=== PATIENT | male | born 1950 | race Caucasian/White ===

== ENCOUNTER 2019-05-14 17:08 | Outpatient (CLI) | payer MEDICARE, SELFPAY ==
--- NOTE | ~2019-05-14 | XR_ITS ---
[XR ribs RT 2V w CXR 2V INDICATION: Right rib pain after fall TECHNIQUE: Frontal projection of the upper right ribs, frontal projection of the lower right ribs, ob lique projection of all the right ribs, frontal inspiratory chest x-ray for interpretation. FINDINGS: There are no displaced rib fractures identified. There are no soft tissue abnormality see n. The lungs are clear. There is diffuse idiopathic skeletal hyperostosis (DISH) of the thoracic spi ne. There is moderate osteoarthritis of the right glenohumeral joint. IMPRESSION: 1:No displaced rib fractures. Reviewed, dictated and finalized at location A. 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
== END 2019-05-14 17:09 | disposition home or self-care (01) ==
PROVIDERS: PCP Internal Medicine; Visit Provider Internal Medicine
DX: S29.9XXA Unspecified injury of thorax, initial encounter (principal); R07.9 Chest pain, unspecified
CPT/HCPCS: 71045; 71101

== ENCOUNTER 2019-06-01 11:59 | Outpatient (CLI) | payer MEDICARE, SELFPAY ==
[2019-06-01] MEDS: MALTOSE IVPB (13:23)
[2019-06-01] MEDS: SODIUM CHLORIDE 0.9% IVPB (13:23)
[2019-06-01] MEDS: ABATACEPT IVPB (13:23)
== END 2019-06-01 12:00 | disposition home or self-care (01) ==
PROVIDERS: PCP Internal Medicine
DX: M05.9 Rheumatoid arthritis with rheumatoid factor, unspecified (principal)
CPT/HCPCS: 96365; 96366; J0129

== ENCOUNTER 2019-06-29 12:05 | Outpatient (CLI) | payer MEDICARE, SELFPAY ==
[2019-06-29] MEDS: SODIUM CHLORIDE 0.9% IVPB (12:45)
[2019-06-29] MEDS: ABATACEPT IVPB (12:45)
[2019-06-29] MEDS: MALTOSE IVPB (12:45)
[2019-06-29 12:49] VITALS: BP 129/80; PULSE 78; RESP 16; TEMP 36.6; O2SAT 97
--- NOTE | 2019-06-29 13:22 | PC.NURSE ---
Patient here for monthly Orencia infusion. No concerns voiced. Orencia infusion administered. Tolerated it well. Safe exit of hospital.
== END 2019-06-29 12:06 | disposition home or self-care (01) ==
PROVIDERS: PCP Internal Medicine
DX: M05.9 Rheumatoid arthritis with rheumatoid factor, unspecified (principal)
CPT/HCPCS: 96365; J0129

== ENCOUNTER 2019-07-27 11:47 | Outpatient (CLI) | payer MEDICARE, SELFPAY ==
[2019-07-27 12:10] VITALS: BP 128/79; PULSE 72; RESP 16; TEMP 36.6; O2SAT 98
[2019-07-27] MEDS: MALTOSE IVPB (12:40)
[2019-07-27] MEDS: ABATACEPT IVPB (12:40)
[2019-07-27] MEDS: SODIUM CHLORIDE 0.9% IVPB (12:40)
--- NOTE | 2019-07-27 13:21 | PC.NURSE ---
PATIENT TOLERATED MONTHLY ORENCIA IV INFUSION WELL. NO CONCERNS VOICED. SAFE EXIT OF HOSPITAL.
== END 2019-07-27 11:48 | disposition home or self-care (01) ==
LOC: CHSTREATRM 11:54
PROVIDERS: PCP Internal Medicine
DX: M05.9 Rheumatoid arthritis with rheumatoid factor, unspecified (principal)
CPT/HCPCS: 96365; J0129

== ENCOUNTER 2019-08-17 09:18 | Outpatient (CLI) | payer MEDICARE, SELFPAY ==
--- NOTE | ~2019-08-17 | XR_ITS ---
EXAMINATION: XR knee RT min 4V DATE: 08/17/2019 10:22 INDICATION: Right knee pain. TECHNIQUE: 4 views of right knee were obtained. COMPARISON: None. FINDINGS: There is varus angulation at the knee. There is lateral subluxation of patella. No fracture . There is severe osteoarthritis of medial compartment, moderate osteoarthritis of patellofemoral com partment, and mild osteoarthritis of lateral compartment. There is a small knee joint effusion. IMPRESSION: 1. Severe right knee osteoarthritis. 2. Small right knee joint effusion. Reviewed, dictated and finalized at location E.
--- NOTE | ~2019-08-17 | US_ITS ---
EXAMINATION: US right upper quadrant DATE: 08/17/2019 10:14 INDICATION: Right upper quadrant abdominal pain. TECHNIQUE: Multiple grayscale and Doppler ultrasound images of the abdomen were obtained. COMPARISON: None FINDINGS: The visualized portions of the head, body, and tail of the pancreas are normal. The liver i s normal without focal lesion. There is normal flow in main portal vein. The gallbladder is normal in size. No gallstones or gallbladder wall thickening. There was a positive sonographic Fisher sign. Th e common duct is normal and measures 5 mm. IMPRESSION: 1. Normal right upper quadrant ultrasound. No etiology for the positive sonographic Fisher sign. Reviewed, dictated and finalized at location E. IMPRESSION: 1. Normal right upper quadrant ultrasound. No etiology for the positive sonogra phic Fisher sign.
--- NOTE | ~2019-08-17 | XR_ITS ---
EXAMINATION: XR knee LT min 4V DATE: 08/17/2019 10:22 INDICATION: Left knee pain. TECHNIQUE: 4 views of left knee were obtained. COMPARISON: None. FINDINGS: There is lateral subluxation of patella. No fracture. There is severe osteoarthritis of med ial compartment, moderate osteoarthritis of patellofemoral compartment, and mild osteoarthritis of la teral compartment. No knee joint effusion. IMPRESSION: 1. Severe left knee osteoarthritis. Reviewed, dictated and finalized at location E.
== END 2019-08-17 09:19 | disposition home or self-care (01) ==
PROVIDERS: PCP Internal Medicine; Visit Provider Internal Medicine
DX: R10.11 Right upper quadrant pain (principal); M25.562 Pain in left knee; M25.561 Pain in right knee
CPT/HCPCS: 73564; 76705

== ENCOUNTER 2019-08-24 11:43 | Outpatient (CLI) | payer MEDICARE, SELFPAY ==
[2019-08-24] MEDS: SODIUM CHLORIDE 0.9% IVPB (12:29)
[2019-08-24] MEDS: MALTOSE IVPB (12:29)
[2019-08-24] MEDS: ABATACEPT IVPB (12:29)
--- NOTE | 2019-08-24 13:05 | PC.NURSE ---
Pt discharged ot home amb per self.
== END 2019-08-24 11:44 | disposition home or self-care (01) ==
PROVIDERS: PCP Internal Medicine
DX: M05.9 Rheumatoid arthritis with rheumatoid factor, unspecified (principal)
CPT/HCPCS: 96365; J0129

== ENCOUNTER 2019-10-05 12:45 | Outpatient (CLI) | payer MEDICARE, SELFPAY ==
[2019-10-05 13:00] VITALS: BP 136/79; PULSE 68; RESP 18; TEMP 37; O2SAT 97
[2019-10-05] MEDS: SODIUM CHLORIDE 0.9% IVPB (13:35)
[2019-10-05] MEDS: ABATACEPT IVPB (13:35)
[2019-10-05] MEDS: MALTOSE IVPB (13:35)
--- NOTE | 2019-10-05 14:14 | PC.NURSE ---
1300 PATIENT HERE FOR MONTHLY ORENICA IV INFUSION. NO CONCERNS VOICED. HAD TOTAL KNEE REPLACEMENT 2 WEEKS AGO AND REPORTS REHABING WITH IT. ORENCIA INFUSION ADMINISTERED. TOLERATED IT WELL. SAFE EXIT OF HOSPITAL.
== END 2019-10-05 12:46 | disposition home or self-care (01) ==
LOC: CHSTREATRM 12:47
PROVIDERS: PCP Internal Medicine; Visit Provider Internal Medicine
DX: M05.9 Rheumatoid arthritis with rheumatoid factor, unspecified (principal)
CPT/HCPCS: 96365; J0129

== ENCOUNTER 2019-10-08 16:53 | Outpatient (RCR) | payer MEDICARE, SELFPAY ==
--- NOTE | 2019-10-11 17:46 | PTOPEVAL ---
Thank you for referring Brian Cano to [facility]. Please review, sign, date and return this plan of care [facility]. I agree with and certify that the following plan of care is medically necessary. Referring Physician Date Admitting Provider: Attending Provider: PHYSICIAN NOT ON STAFF Referring Provider: *PT Outpatient Evaluation Start: 10/08/19 17:00 Freq: Status: Active Protocol: Document 10/08/19 17:00 TANVIR (Rec: 10/08/19 17:54 TANVIR [id number]) Therapy Assessment Status Assessment Status Assessment Status Evaluation Evaluation Information Problem Diagnosis post op right TKR Onset 09/20/19 Additional Evaluation Detail LEFS=15 Subjective Information Pt. reports that he underwent Query Text:As Reported By Patient/ right knee replacement 09/20/19 Family . He states that he has not been participating in any formal therapy since undergoing surgery. He describes a short list of exercise that he has attempted to perform. He states that he has complications with both pain and stiffness in the right knee. He is using a quad cane currently. He is not currently driving. He has extensive hx of RA and recent episode of food poisoning. He states that his goal is to improve his knee mobility and strength. Prior Level of Function Activity Level (Last 3 Months) Occupation retired Hand Dominance Right Activity of Daily Living Ability Independent Indoor/Home Mobility Independent Community Mobility Needs Some Help Stairs Ability Needs Some Help Functional Cognition (Planning, Shopping Needs Some Help , Taking Medications) Cooking No Cleaning No Laundry No Shopping No Driving No Pain Assessment Pain Scale Pain Scale Used Numeric (1 - 10) Self Report Pain Assessment Right Knee(s) Reported Pain Level 7 Pain Description Aching Pain Frequency Chronic,Continuous Lowest Pain Intensity 7 Greatest Pain Intensity 10 Pain Score Pain Score 7: Self Report Lower Extremity Range o
== END 2019-11-02 10:29 | disposition home or self-care (01) ==
LOC: CHSPT 16:53
PROVIDERS: PCP Internal Medicine
DX: Z96.651 Presence of right artificial knee joint (principal)
CPT/HCPCS: 97110; 97116; 97161; 97530

== ENCOUNTER 2019-11-02 09:22 | Outpatient (CLI) | payer MEDICARE, SELFPAY ==
[2019-11-02 09:44] VITALS: BP 121/80; PULSE 68; RESP 14; TEMP 36.4; O2SAT 97
[2019-11-02] MEDS: SODIUM CHLORIDE 0.9% IVPB (10:05)
[2019-11-02] MEDS: MALTOSE IVPB (10:05)
[2019-11-02] MEDS: ABATACEPT IVPB (10:05)
--- NOTE | 2019-11-02 10:42 | PC.NURSE ---
1040 Patient tolerated Monthly Orencia IV infusion well. No concerns voiced. Safe exit of hospital.
== END 2019-11-02 09:23 | disposition home or self-care (01) ==
PROVIDERS: PCP Internal Medicine; Visit Provider Internal Medicine
DX: M05.9 Rheumatoid arthritis with rheumatoid factor, unspecified (principal)
CPT/HCPCS: 96365; 97110; J0129

== ENCOUNTER 2019-11-12 07:56 | Outpatient (CLI) | payer MEDICARE, SELFPAY ==
--- NOTE | ~2019-11-12 | NM_ITS ---
EXAMINATION: NM hepatobiliary w pharm DATE: 11/12/2019 10:06 INDICATION: Right upper quadrant abdominal pain. COMPARISON: Ultrasound 08/17/2019 TECHNIQUE: 5 mCi Tc-99m mebrofenin (Choletec) was administered intravenously. Scintigraphic images o f the abdomen were obtained for one hour. Then, 2.16 mcg sincalide (Kinevac) IV was administered, and imaging was continued for 30 minutes. FINDINGS: There is normal clearance of radiotracer from the blood pool. There is homogeneous tracer u ptake by the liver. Activity progresses to the bowel and gallbladder. Gallbladder ejection fraction (GBEF) was 40%. Note that most patients with gallbladder dysfunction have GBEF < 35%, which overlaps with the broad normal range of 10-90%. IMPRESSION: 1. Normal hepatobiliary scintigraphy. Reviewed, dictated and finalized at location A.
--- NOTE | ~2019-11-12 | US_ITS ---
EXAMINATION: US right upper quadrant EXAM DATE: 11/12/2019 10:58 INDICATION: Right upper quadrant pain. TECHNIQUE: Multiple grayscale and Doppler images of the abdomen right upper quadrant were obtained (vidal y a technologist who performed the scan) and subsequently reviewed. There is no prior study for noel kent. FINDINGS: The pancreatic head and body are normal in appearance. The pancreatic tail is not visualized. The l iver has normal echogenicity and contour. There are no focal liver lesions identified. There is no evidence of intrahepatic biliary duct dilation. Portal venous flow was seen in the hepatopedal, nor mal direction and has normal Doppler waveform. No right-sided hydronephrosis. Common bile duct measures 3 mm, which is normal. The gallbladder wall is normal in thickness, with co ntracted state. No sonographic evidence of pericholecystic fluid. There is no cholelithiases. Techn ologist performing exam reports patient did not demonstrate sonographic Fisher's sign. Please note t hat this sign is less reliable in patients who have received pain medication. IMPRESSION: 1. Unremarkable abdominal ultrasound exam. Reviewed, dictated and finalized at location B.
== END 2019-11-12 07:57 | disposition home or self-care (01) ==
PROVIDERS: PCP Internal Medicine; Visit Provider Internal Medicine
DX: R10.11 Right upper quadrant pain (principal)
CPT/HCPCS: 76705; 78227; A9537; J2805

== ENCOUNTER 2019-11-30 12:31 | Outpatient (CLI) | payer MEDICARE, SELFPAY ==
[2019-11-30 12:44] VITALS: BP 128/77; PULSE 68; RESP 14; TEMP 36.3; O2SAT 98
[2019-11-30] MEDS: ABATACEPT IVPB (13:13)
[2019-11-30] MEDS: SODIUM CHLORIDE 0.9% IVPB (13:13)
[2019-11-30] MEDS: MALTOSE IVPB (13:13)
--- NOTE | 2019-11-30 13:56 | PC.NURSE ---
1230 Patient here for monthly Orencia IV infusion. No concerns voiced. Orencia Infusion administered. SEE MAR. Tolerated well. Safe exit of hospital. Scheduled next month 1230
== END 2019-11-30 12:32 | disposition home or self-care (01) ==
PROVIDERS: PCP Internal Medicine; Visit Provider Internal Medicine
DX: M05.9 Rheumatoid arthritis with rheumatoid factor, unspecified (principal)
CPT/HCPCS: 96365; J0129

== ENCOUNTER 2019-12-03 01:09 | Outpatient (CLI) | payer MEDICARE, SELFPAY ==
[2019-12-03 16:32] LABS: SARS-CoV-2 RNA PCR Negative
== END 2019-12-03 01:10 | disposition home or self-care (01) ==
LOC: ANHCOVIDDT 01:09
PROVIDERS: PCP Internal Medicine; Visit Provider Internal Medicine Gastroenterology
DX: Z01.812 Encounter for preprocedural laboratory examination (principal); Z20.828 Contact with and (suspected) exposure to other viral communicable diseases
CPT/HCPCS: 87635; C9803; U0003

== ENCOUNTER 2019-12-05 00:46 | Day surgery (SDC) | payer MEDICARE, SELFPAY ==
[2019-11-26 13:24] VITALS: BMI 33.2
--- NOTE | 2019-12-05 12:23 | WPDANESEPPF ---
Anes - Initial Pre Proc Eval Procedure: Operation Date: 12/05/19 13:30 Proposed Procedures p Esophagogastroduodenoscopy & Screening Colonoscopy - Kj Canales MD Date/Time: 12/05/19 12:23 Surgeon: Kj Canales MD Pre Op Diagnosis: Abdominal Pain/ Neoplasm Screening Patient Data Age: 69 Gender: M Height: 5 ft 10 in Weight: 105 kg Allergies Allergy/AdvReac Type Severity Reaction Status Date / Time Penicillins Allergy Intermediate Unknown Verified 12/05/19 12:20 hydrocodone Allergy Unknown Verified 12/05/19 12:20 methotrexate Allergy Unknown Verified 12/05/19 12:20 niacin Allergy Unknown Verified 12/05/19 12:20 zinc Allergy Unknown Verified 12/05/19 12:20 Home Medications Medication Instructions Recorded Confirmed Type alprazolam 2 mg tablet 2 mg PO DAILY 11/22/19 11/26/19 History atorvastatin 10 mg tablet 10 mg PO DAILY 11/22/19 11/26/19 History cyanocobalamin (vitamin B-12) 1,000 mcg PO DAILY 11/22/19 11/26/19 History 1,000 mcg capsule diclofenac sodium 1.5 % topical pkg TOPICAL 11/22/19 History drops-menthol 10 % roll-on combo pack fluticasone propionate 55 1 inhalation INHALATION Q12H 11/22/19 11/26/19 History mcg/actuation breath activated powder inhalr hyoscyamine sulfate 0.125 mg tablet 0.125 mg PO QID 11/22/19 11/26/19 History losartan 50 mg tablet 50 mg PO DAILY 11/22/19 11/26/19 History dqkplghz-fshatczszg-ybtirhqc 3.5 1 applic EACH EYE TID #3.5 gm 11/22/19 11/26/19 Rx mg-400 unit-10,000 unit/gram eye oint pantoprazole 40 mg tablet,delayed 40 mg PO QAM 11/22/19 11/26/19 History release sertraline 100 mg tablet 100 mg PO DAILY 11/22/19 11/26/19 History tizanidine 4 mg capsule 4 mg PO TID PRN 11/22/19 11/26/19 History triamcinolone acetonide 0.1 % 1 applic TOPICAL BID 11/22/19 11/26/19 History topical cream peg 3350-electrolytes 236 240 ml PO Q10M #4000 ml 11/23/19 11/26/19 Rx gram-22.74 gram-6.74 gram-5.86 gram solution Patient hx anesthesia problems: none Family hx anesthesia problems: none PMFSH Past Medical History Medical History Anxiety Colon cancer screening Depression Hyperlipidemia Hypertension Nausea & vomiting Neuropathy Rheumatoid arthritis RUQ pain Social History Social History Alcohol intake: former Substance use type: does not use Living arrangements: with family Anes - Eval Final PreProcedure Day of Procedure 12/05/19 12:23 Patient weight: obese Heart: regular rate and rhythm Lungs: clear to auscultation Airway: Mallampati scale class II Neurological: alert and oriented Last oral intake: >/= 8 hours ASA classification: III Emergent: no Anesthetic plan: proceed Anesthesia type and monitoring: general GIVS and standard monitoring Informed Consent: The patient's anesthetic plan and its attendant risks and benefits were discussed with the patient/family/POA. Questions were solicited and answers provided to the satisfaction of the patient/family/POA.
[2019-12-05 12:25] VITALS: BP 159/83; PULSE 83; RESP 20; TEMP 36.4; O2SAT 98; BMI 32.3
[2019-12-05] MEDS: LACTATED RINGERS 1,000 ML 150 ML IV CONT (12:45)
--- NOTE | 2019-12-05 13:35 | WPDHPUPDATE1 ---
History and Physical Update Update Date/Time: 12/05/19 13:35 History and Physical has been reviewed, including an updated exam of the patient. There are NO changes in the patient's condition. Risks, benefits, and alternatives have been discussed and questions answered. Patient agrees to proceed with procedure.
[2019-12-05 14:17] VITALS: BP 89/60; PULSE 63; RESP 12; O2SAT 96
[2019-12-05 14:27] VITALS: BP 89/55; PULSE 63; RESP 12; O2SAT 94
[2019-12-05 14:37] VITALS: BP 97/67; PULSE 69; RESP 20; O2SAT 99
[2019-12-05 14:47] VITALS: BP 111/69; PULSE 62; RESP 23; O2SAT 98
== END 2019-12-05 15:02 | disposition home or self-care (01) ==
PROVIDERS: PCP Internal Medicine; Visit Provider Internal Medicine Gastroenterology
PROC: 0DJ08ZZ Inspection of Upper Intestinal Tract, Via Natural or Artificial Opening Endoscopic (ICD-10-PCS; CPT 43235; principal; 2019-12-05 13:30)
DX: Z12.11 Encounter for screening for malignant neoplasm of colon (principal); K57.30 Diverticulosis of large intestine without perforation or abscess without bleeding; K64.8 Other hemorrhoids; R10.11 Right upper quadrant pain; F41.8 Other specified anxiety disorders; I10 Essential (primary) hypertension; E78.5 Hyperlipidemia, unspecified; M06.9 Rheumatoid arthritis, unspecified; G62.9 Polyneuropathy, unspecified; E66.9 Obesity, unspecified; Z68.32 Body mass index [BMI] 32.0-32.9, adult
CPT/HCPCS: 43239; G0121; 88305; J2704; J7120

== ENCOUNTER 2019-12-17 02:34 | Outpatient (CLI) | payer MEDICARE, SELFPAY ==
[2019-12-17 16:34] LABS: SARS-CoV-2 RNA PCR Negative
== END 2019-12-17 02:35 | disposition home or self-care (01) ==
LOC: ANHCOVIDDT 02:34
PROVIDERS: PCP Internal Medicine; Visit Provider Surgery
DX: Z01.818 Encounter for other preprocedural examination (principal); Z11.59 Encounter for screening for other viral diseases
CPT/HCPCS: 87635; C9803; U0003

== ENCOUNTER 2019-12-17 10:45 | Outpatient (CLI) | payer MEDICARE, SELFPAY ==
--- NOTE | 2019-12-17 10:50 | ECG_ITS ---
Measurements Intervals [place] Rate: 54 P: 34 WI: 189 QRS: -28 QRSD: 105 T: 23 QT: 394 QTc: 377 Interpretive Statements SINUS BRADYCARDIA LOW QRS VOLTAGE IN PRECORDIAL LEADS INCOMPLETE RIGHT BUNDLE BRANCH BLOCK DELAYED PRECORDIAL R/S TRANSITION BORDERLINE ECG Electronically Signed On 12-17-2019 11:34:21 CDT by Wenceslao Garcia D.O.
[2019-12-17 11:42] LABS: Alanine Aminotransferase 14 U/L (4-50); Albumin Level 4.3 g/dL (3.5-5.1); Alkaline Phosphatase 99 U/L (38-126); Amylase 65 U/L (30-110); Aspartate Amino Transferase 17 U/L (17-59); Bilirubin,Total 0.5 mg/dL (0.2-1.3); Lipase 41 U/L (23-300)
== END 2019-12-17 10:46 | disposition home or self-care (01) ==
PROVIDERS: PCP Internal Medicine; Visit Provider Surgery
DX: K81.1 Chronic cholecystitis (principal); I10 Essential (primary) hypertension
CPT/HCPCS: 36415; 80076; 82150; 83690; 86850; 86900; 86901; 87635; 93005; C9803; U0003

== ENCOUNTER 2019-12-19 01:31 | Day surgery (SDC) | payer MEDICARE, SELFPAY ==
[2019-12-12 13:31] VITALS: BMI 32.3
[2019-12-19] VITALS (8 sets, daily range): BP systolic 94–140; BP diastolic 55–71; PULSE 56–70; RESP 14–18; TEMP 35.8–36.6; O2SAT 93–100
[2019-12-19] MEDS: KETOROLAC 15 MG/ML VIAL (*BKC) IV PUSH (10:22)
[2019-12-19] MEDS: ACETAMINOPHEN 500 MG TABLET 1000 MG PO (10:22)
[2019-12-19] MEDS: LACTATED RINGERS 1,000 ML 30 ML IV CONT ×2 (10:22→12:51)
--- NOTE | 2019-12-19 11:37 | WPDANESEPPF ---
Anes - Initial Pre Proc Eval Procedure: Operation Date: 12/19/19 12:00 Proposed Procedures p Laparoscopic Cholecystectomy - Cari Medrano MD Date/Time: 12/19/19 11:37 Surgeon: Cari Medrano MD Pre Op Diagnosis: cholecystitis Patient Data Age: 69 Gender: M Height: 5 ft 10 in Weight: 104.2 kg Last Vital Signs Temp 96.4 F L 12/19/19 11:28 Pulse 56 L 12/19/19 11:28 Resp 18 12/19/19 11:28 BP 102/55 L 12/19/19 11:28 Pulse Ox 100 12/19/19 11:28 Allergies Allergy/AdvReac Type Severity Reaction Status Date / Time clindamycin Allergy Gastrointestinal Verified 12/19/19 11:18 Upset hydrocodone Allergy Confusion Verified 12/19/19 11:18 methotrexate Allergy Other Verified 12/19/19 11:18 niacin Allergy Fatigued Verified 12/19/19 11:18 zinc Allergy Fatigued Verified 12/19/19 11:18 Home Medications Medication Instructions Recorded Confirmed Type alprazolam 2 mg tablet 2 mg PO DAILY 11/22/19 12/14/19 History atorvastatin 10 mg tablet 10 mg PO DAILY 11/22/19 12/14/19 History cyanocobalamin (vitamin B-12) 1,000 mcg PO DAILY 11/22/19 12/14/19 History 1,000 mcg capsule diclofenac sodium 1.5 % topical 1 pkg TOPICAL DAILY 11/22/19 12/14/19 History drops-menthol 10 % roll-on combo pack fluticasone propionate 55 1 inhalation INHALATION Q12H 11/22/19 12/14/19 History mcg/actuation breath activated powder inhalr hyoscyamine sulfate 0.125 mg tablet 0.125 mg PO QID 11/22/19 12/14/19 History losartan 50 mg tablet 50 mg PO DAILY 11/22/19 12/14/19 History axrdgbut-biaqwcfcyb-zhtmtrsf 3.5 1 applic EACH EYE TID #3.5 gm 11/22/19 12/14/19 Rx mg-400 unit-10,000 unit/gram eye oint pantoprazole 40 mg tablet,delayed 40 mg PO QAM 11/22/19 12/14/19 History release sertraline 100 mg tablet 100 mg PO DAILY 11/22/19 12/14/19 History tizanidine 4 mg capsule 4 mg PO TID PRN 11/22/19 12/14/19 History triamcinolone acetonide 0.1 % 1 applic TOPICAL BID 11/22/19 12/14/19 History topical cream peg 3350-electrolytes 236 240 ml PO Q10M #4000 ml 11/23/19 12/14/19 Rx gram-22.74 gram-6.74 gram-5.86 gram solution Patient hx anesthesia problems: none Family hx anesthesia problems: none [facility] Social History Social History Smoking status: Never smoker Alcohol intake: former Substance use: never Substance use type: does not use Living arrangements: with family Spiritual care concerns: No Anes - Eval Final PreProcedure Day of Procedure 12/19/19 11:37 Patient weight: normal Heart: regular rate and rhythm Lungs: clear to auscultation Airway: Mallampati scale class II Neurological: alert and oriented Last oral intake: >/= 8 hours ASA classification: III Emergent: no Anesthetic plan: proceed Anesthesia type and monitoring: general ETT and standard monitoring Informed Consent: The patient's anesthetic plan and its attendant risks and benefits were discussed with the patient/family/POA. Questions were solicited and answers provided to the satisfaction of the patient/family/POA.
--- NOTE | 2019-12-19 11:43 | WPDHPUPDATE1 ---
History and Physical Update Update Date/Time: 12/19/19 11:43 History and Physical has been reviewed, including an updated exam of the patient. There are NO changes in the patient's condition. Risks, benefits, and alternatives have been discussed and questions answered. Patient agrees to proceed with procedure.
[2019-12-19] MEDS: ceFAZolin 2 GM/D5W 50 ML 2 GM/50 ML BAG IVPB (11:57)
[2019-12-19] MEDS: BUPIVACAINE/EPINEPHRINE 0.5% 10 ML VIAL 30 ML INFILTRATE (12:28)
--- NOTE | 2019-12-19 12:53 | P.OP_ITS ---
Procedure Note - Detailed Date of procedure: 12/19/19 Pre-op diagnosis: cholecystitis Post-op diagnosis: same Procedure performed: laparoscopic cholecystectomy Description of procedure: The patient was taken to the operating room placed in the supine position. After adequate induction of general anesthesia, the patient was prepped and draped in normal sterile fashion. A time-out was then performed to verify the patient's identity as well as the procedure being performed. I then made a 5 mm incision in the infraumbilical region. Through this, a Veress needle was placed into the peritoneal cavity and CO2 gas was then insufflated. After adequate pneumoperitoneum was achieved, the Veress needle was removed and a 5 mm trocar was placed through this incision. I then placed the laparoscope through this trocar site and under direct visualization placed a further 12 mm subxiphoid port as well as 2 additional 5 mm ports in the right upper abdomen. The gallbladder was then identified and was noted to be inflamed with omental adhesions. These adhesions were taken down with the bovie cautery. Once taken down, I was able to place a grasper at the dome of the gallbladder and this was retracted anterior and cephalad up over the liver. A 2nd retractor was then placed at the infundibulum and retracted laterally, this allowed visualization of the triangle of Calot. I then was able to visualize the cystic duct in its entirety from its proximal insertion into the gallbladder, to its distal junction with the common hepatic/common bile duct junction. At this point, I carefully skeletonized the proximal cystic duct with the [place] dissector. I then clipped and transected the proximal cystic duct. Next I visualized the cystic artery. Again the artery was skeletonized, clipped, and transected. I then used the Bovie cautery to take down the peritoneal attachments of the gallbladder off the liver bed. Once the gallbladder specimen was completely detached, an endo-pouch was placed through the 12 mm port site. I then placed the gallbladder specimen into the Endo pouch and removed the endo- pouch from the 12 mm port site. The specimen will now be sent to pathology for further review. I then copiously irrigated the right upper quadrant. Hemostasis was noted in the liver bed, the clips were noted to be in good position on both the cystic duct stump and the cystic artery stump. No other pathology was noted in the right upper quadrant. I then moved the laparoscope to the subxiphoid port. No iatrogenic injury or other pathology was noted in the lower abdomen. At this point, the abdomen was desufflated and all ports removed. The fascia of the 12 mm subxiphoid port was closed with a 0 Vicryl figure of 8 suture. All port sites were then closed with 4.O Monocryl subcuticular sutures. Dermabond was placed on each incision. The patient tolerated the procedure well, was extubated in the operating room postoperative and will be transferred to the recovery room in stable condition. Implants: none Anesthesia: GETA Surgeon: Cari Medrano MD Estimated blood loss (mL): 5 Drains: No Packing: No Pathology: yes Complications: No immediate complications Condition: stable Disposition: PACU Findings: cholecystitis c omental adhesions
[2019-12-19] MEDS: fentaNYL CITRATE INJ (*CRX) 100 MCG/2 ML VIAL 25 MCG IV PUSH ×4 (13:06→13:31)
--- NOTE | 2019-12-19 13:31 | SUR.PHASEI ---
PT AWAKE AND ALERT. TALKATIVE, RELAXED. STATES PAIN 6-7/10 WHEN ASKED.
--- NOTE | 2019-12-19 13:39 | SUR.PHASEI ---
PT STATES HE IS READY TO SIT IN RECLINER AND HAVE PO FLUIDS.
[2019-12-19] MEDS: oxyCODONE HCL (*CRX) 5 MG TAB IR PO (14:19)
== END 2019-12-19 14:47 | disposition home or self-care (01) ==
PROVIDERS: PCP Internal Medicine; Visit Provider Surgery
PROC: 0FT44ZZ Resection of Gallbladder, Percutaneous Endoscopic Approach (ICD-10-PCS; CPT 47562; principal; 2019-12-19 12:00)
DX: K80.10 Calculus of gallbladder with chronic cholecystitis without obstruction (principal); I10 Essential (primary) hypertension; E78.5 Hyperlipidemia, unspecified; M06.9 Rheumatoid arthritis, unspecified; G62.9 Polyneuropathy, unspecified; F32.9 Major depressive disorder, single episode, unspecified
CPT/HCPCS: 47562; 88304; A9270; J0690; J1100; J1170; J1885; J2250; J2370; J2405; J2704; J2710; J3010; J7120

== ENCOUNTER 2020-01-04 12:43 | Outpatient (CLI) | payer MEDICARE, SELFPAY ==
[2020-01-04] MEDS: ABATACEPT IVPB (13:39)
[2020-01-04] MEDS: SODIUM CHLORIDE 0.9% IVPB (13:39)
[2020-01-04] MEDS: MALTOSE IVPB (13:39)
--- NOTE | 2020-01-04 14:15 | PC.NURSE ---
Patient tolerated infusion well. IV site removed,tip intact. Dressing applied to site. Next appointment made for 02-01-20 at 1230. Patient denies any questions or concerns. Pt. left ambulatory.
== END 2020-01-04 12:44 | disposition home or self-care (01) ==
LOC: CHSTREATRM 12:45
PROVIDERS: PCP Internal Medicine; Visit Provider Internal Medicine
DX: M05.9 Rheumatoid arthritis with rheumatoid factor, unspecified (principal)
CPT/HCPCS: 96365; J0129

== ENCOUNTER 2020-02-01 09:04 | Outpatient (CLI) | payer MEDICARE, SELFPAY ==
[2020-02-01] MEDS: SODIUM CHLORIDE 0.9% IVPB (10:03)
[2020-02-01] MEDS: ABATACEPT IVPB (10:03)
[2020-02-01] MEDS: MALTOSE IVPB (10:03)
--- NOTE | 2020-02-01 10:40 | PC.NURSE ---
infused, discontinued access and discharge to home, aware of what to watch for with removal of saline lock, signs of infection
== END 2020-02-01 09:05 | disposition home or self-care (01) ==
PROVIDERS: PCP Internal Medicine; Visit Provider Internal Medicine
DX: M05.9 Rheumatoid arthritis with rheumatoid factor, unspecified (principal)
CPT/HCPCS: 96365; J0129

== ENCOUNTER 2020-02-29 12:28 | Outpatient (CLI) | payer MEDICARE, SELFPAY ==
--- NOTE | 2020-02-29 12:40 | PC.NURSE ---
Pt to room 202 amb per self. A&Ox3. Has no questions or complaints. Oriented to room, call garcia in reach. Reminded to call with needs.
[2020-02-29] MEDS: ABATACEPT IVPB (13:20)
[2020-02-29] MEDS: MALTOSE IVPB (13:20)
[2020-02-29] MEDS: SODIUM CHLORIDE 0.9% IVPB (13:20)
--- NOTE | 2020-02-29 13:55 | PC.NURSE ---
Medication infused as ordered. Pt tolerated well. Has no complaints. Discharged to home amb per self.
== END 2020-02-29 12:29 | disposition home or self-care (01) ==
LOC: CHSTREATRM 12:31
PROVIDERS: PCP Internal Medicine; Visit Provider Internal Medicine
DX: M05.9 Rheumatoid arthritis with rheumatoid factor, unspecified (principal)
CPT/HCPCS: 96365; J0129

== ENCOUNTER 2020-03-19 09:24 | Outpatient (CLI) | payer MEDICARE, SELFPAY ==
--- NOTE | ~2020-03-19 | MR_ITS ---
EXAMINATION: MR cervical spine wo [facility] EXAM DATE: 03/19/2020 11:40 INDICATION: Chronic shoulder and neck pain chronic shoulder and neck pain. TECHNIQUE: Multi-sequential, multiplanar MR images of the cervical spine were obtained without contra st. Axial T2, axial T2 MERGE sequence. Sagittal T1, T2, T2 fat saturation images also obtained. Th ere is no prior study for comparison. FINDINGS: The spinal cord signal intensity and intrinsic morphology is normal. Cervicomedullary junc tion is normal in appearance. There are no suspicious marrow signal abnormalities. Paraspinal soft ti ssue is unremarkable. There is moderate loss of the C4-5 and 5-6 disc heights, mild to moderate at C3 -4 and C6-7. There is 2 mm retrolisthesis C4 on C5. The vertebral bodies are otherwise aligned. Level by level evaluation: C2-C3: There is a mild diffuse disc bulge. Uncovertebral joint arthropathy: Mild to moderate left. Facet joint arthropathy: Mild bilateral. Neural foraminal stenosis: Mild left. Central canal stenosis: No stenosis. C3-C4: There is a mild diffuse disc bulge. Uncovertebral joint arthropathy: Mild to moderate left, mild right. Facet joint arthropathy: Mild to moderate left, moderate right. Neural foraminal stenosis: Moderate left, mild right. Central canal stenosis: Mild. C4-C5: There is a mild diffuse disc bulge. Uncovertebral joint arthropathy: Moderate left, mild to moderate right. Facet joint arthropathy: Moderate bilateral. Neural foraminal stenosis: Moderate to severe left, moderate right. Central canal stenosis: Mild. C5-C6: Disc does not extend beyond the endplate margin. Uncovertebral joint arthropathy: Mild bilateral. Facet joint arthropathy: Mild to moderate bilateral. Neural foraminal stenosis: Mild left. Central canal stenosis: No stenosis. C6-C7: Disc does not extend beyond the endplate margin. Uncovertebral joint arthropathy: Mild to moderate bilateral. Facet joint arthropathy: Mild bilateral. Neural foraminal stenosis: Mild right. Central canal stenosis: No stenosis. C7-T1: Disc does not extend beyond the endplate margin. Uncovertebral joint arthropathy: None. Facet joint arthropathy: Mild to moderate right, mild left. Neural foraminal stenosis: Mild right. Central canal stenosis: No stenosis. IMPRESSION: 1. C4-5 moderate to severe left neural foraminal stenosis, the most narrowed level on exam. 2. Overall moderate cervical spondylosis as detailed above. Reviewed, dictated and finalized at location B. C SCIENCES PROFESSOR IMPRESSION: 1. C4-5 moderate to severe left neural foraminal stenosis, the most narrowed l evel on exam. 2. Overall moderate cervical spondylosis as detailed above.
--- NOTE | ~2020-03-19 | MR_ITS ---
EXAMINATION: MR shoulder LT wo con DATE: 03/19/2020 11:41 INDICATION: Left shoulder pain. TECHNIQUE: Magnetic resonance imaging (MRI) of the left shoulder was performed without intravenous co ntrast. Sequences included axial PD-weighted FS FSE, coronal oblique PD-weighted FS FSE and T2-weight ed FS FSE, and sagittal oblique T2-weighted FS FSE and T1-weighted FSE. COMPARISON: None. FINDINGS: Coracoacromial arch: The acromion undersurface is curved in morphology (type II). There is severe acromioclavicular joint osteoarthritis. There is mild subacromial/subdeltoid bursitis. Rotator cuff: There are articular-sided and bursal-sided partial-thickness tears of anterior supraspinatus tendon m easuring 10 mm anterior to posterior by 6 mm proximal to distal by 30% tendon thickness. Infraspinatu s and teres minor tendons are normal. There is mild subscapularis tendinopathy. There is no asymmetri c fatty atrophy of the rotator cuff muscle bellies. Biceps tendon and glenoid labrum: Biceps tendon is in bicipital groove. There is mild intra-articular biceps tendinopathy. There is deg enerative tearing of the superior labrum at 12:00 (type 1 SLAP tear). Fluid: There is a small glenohumeral joint effusion. Bones/cartilage: There is shallow partial-thickness cartilage loss of glenoid. There is cartilage surface irregularity of humeral head. IMPRESSION: 1. Partial-thickness tears of supraspinatus tendon. 2. Mild glenohumeral joint chondrosis. SLAP tear. 3. Mild intra-articular biceps tendinopathy. 4. Small glenohumeral joint effusion. 5. Mild subacromial/subdeltoid bursitis. 6. Severe acromioclavicular joint osteoarthritis. Reviewed, dictated and finalized at location A. HOOKER
== END 2020-03-19 09:25 | disposition home or self-care (01) ==
LOC: CHSIMG 09:26
PROVIDERS: PCP Internal Medicine; Visit Provider Internal Medicine
DX: M25.512 Pain in left shoulder (principal); M54.2 Cervicalgia
CPT/HCPCS: 72141; 73221

== ENCOUNTER 2020-03-26 11:04 | Outpatient (CLI) | payer MEDICARE, SELFPAY ==
--- NOTE | ~2020-03-26 | XR_ITS ---
EXAMINATION: XR sacroiliac jt inj w imag RT DATE: 03/26/2020 12:10 INDICATION: Low back pain TECHNIQUE: A time-out was performed to verify the patient's name, date of , and procedure to b e performed. The procedure including the risks, benefits, and alternatives was discussed with the pat ient. Risks discussed included bleeding and infection. The patient understood the risks and agreed to proceed. The skin overlying the right sacroiliac joint was prepped and draped in usual sterile fash ion. Anesthetic was administered with 1% lidocaine subcutaneously. A 22 G needle was advanced under fluoroscopic guidance into the joint. Injection of 0.2 mL of Omnipaque 240 confirmed intra-articula r position of the needle. Subsequently, injectate consisting of 5 mL of a 3:1:1 mixture of 1% lidoca ine, 4 mg/mL dexamethasone and 40 mg/mL Kenalog respectively was instilled for a total dosage of 4 mg dexamethasone and 40 mg Kenalog. Washout of contrast was seen confirming intra-articular administrat ion. The needle was removed and the entry site was cleaned and dressed. There were no immediate comp lications. Fluoroscopy exposure time was 0.2 minutes. The total number of images was 3. FINDINGS: Real-time fluoroscopy demonstrates the needle in the right sacroiliac joint. Patient's pain prior to procedure:01/04. Patient's pain following the procedure: 07/05. IMPRESSION: 1. Right sacroiliac joint injection of local anesthetic and steroid with decrease in the patient's pr esenting pain. Reviewed, dictated and finalized at location A. RONMENTAL AIDE IMPRESSION: 1. Right sacroiliac joint injection of local anesthetic and steroid with decrea se in the patient's presenting pain.
== END 2020-03-26 11:05 | disposition home or self-care (01) ==
PROVIDERS: PCP Internal Medicine; Visit Provider Internal Medicine
DX: M54.5 Low back pain (principal); M53.3 Sacrococcygeal disorders, not elsewhere classified
CPT/HCPCS: 27096; G0260; J1100; J3301

== ENCOUNTER 2020-03-27 13:31 | Outpatient (CLI) | payer MEDICARE, SELFPAY ==
[2020-03-27 13:56] VITALS: BP 121/82; PULSE 78; RESP 14; TEMP 36.3; O2SAT 97
[2020-03-27] MEDS: MALTOSE IVPB (14:14)
[2020-03-27] MEDS: ABATACEPT IVPB (14:14)
[2020-03-27] MEDS: SODIUM CHLORIDE 0.9% IVPB (14:14)
--- NOTE | 2020-03-27 14:23 | PC.NURSE ---
Patient here for monthly [facility]. No concerns voiced. Oriencia administered. Will return Apr 24 for next infusion.
== END 2020-03-27 13:32 | disposition home or self-care (01) ==
LOC: CHSTREATRM 13:36
PROVIDERS: PCP Internal Medicine; Visit Provider Internal Medicine
DX: M05.9 Rheumatoid arthritis with rheumatoid factor, unspecified (principal)
CPT/HCPCS: 96365; J0129

== ENCOUNTER 2020-03-31 15:30 | Outpatient (RCR) | payer MEDICARE, SELFPAY ==
--- NOTE | 2020-04-01 08:37 | PTOPEVAL ---
Thank you for referring Brian Cano to [facility].? The patient is scheduled to be seen for therapy? __3__x/week for 12 visits. Please review, sign, date and return this plan of care BARBARA. I agree with and certify that the following plan of care is medically necessary. Referring Physician Date Admitting Provider: Attending Provider: Michael Hussein MD Referring Provider: *PT Outpatient Evaluation Start: 03/31/20 15:37 Freq: Status: Active Protocol: Document 03/31/20 15:40 TANVIR (Rec: 04/01/20 08:37 [email or web address] [id number]) Therapy Assessment Status Assessment Status Assessment Status Evaluation Outpatient Past Medical History Neurological History Hx Other Neurological Disorders Yes: NEUROPATHY LEGS AND FEET Cardiovascular History Hx Hypercholesterolemia Yes Hx Hypertension Yes Hx Other Cardiac Disorders Yes: DENIES CARDIAC SYMPTOMS Respiratory History Hx Respiratory Disorders No Significant History Gastrointestinal History Hx Gall Bladder Disease Yes Hx Gastroesophageal Reflux Disease Yes Hx Other Gastrointestinal Disorders Yes: COLONOSCOPY NOV 2019 Genitourinary History Hx Genitourinary Disorders No Significant History Musculoskeletal History Hx Joint Replacement Yes: 09/20/2019 RIGHT TOTAL KNEE REPLACEMENT Hx Rheumatoid Arthritis Yes Hx Spinal Surgery Yes: L4-L5 Hematological History Hx Hematological Disorders No Significant History Endocrine History Hx Endocrine Disorders No Significant History HEENT History Hx HEENT Disorders No Significant History Integumentary History Hx Skin Disorders No Significant History Reproductive History Hx Reproductive Disorders No Significant History Psychosocial History Hx Anxiety Yes Hx Depression Yes Pain History History of Any Previous or Ongoing No Significant History Instance of Pain Anesthesia History Hx Anesthesia Reactions No Significant History Evaluation Information Problem Diagnosis neck and left shoulder pain Onset 10/27/19 Subjective Information Pt. reports that he Query Text:As Reported By Patient/ experienced a gall bladder Family attack in October. He states that following the gall bladder issue he developed neck and shoulder pain. He describes pain going down the entire left arm. Pt. states that majority of pain is in the described neck area and into the left upper trap. He
--- NOTE | 2020-04-03 14:00 | PCPTNOTE ---
Pt. contacted the clinic stating that he would be seeing a doctor regarding injections in his neck. He states that he was told to hold off on therapy for now. He will be discharged from our care. Luis Fernando Qiu, MPT
== END 2020-03-31 16:30 | disposition home or self-care (01) ==
LOC: CHSPT 15:30
PROVIDERS: PCP Internal Medicine; Visit Provider Internal Medicine
DX: M25.562 Pain in left knee (principal); M54.2 Cervicalgia; M25.512 Pain in left shoulder; M53.3 Sacrococcygeal disorders, not elsewhere classified
CPT/HCPCS: 97014; 97110; 97161; G0283

== ENCOUNTER 2020-04-25 13:01 | Outpatient (CLI) | payer MEDICARE, SELFPAY ==
--- NOTE | 2020-04-25 13:10 | PC.NURSE ---
Here for op infusion service
[2020-04-25] MEDS: MALTOSE IVPB (13:35)
[2020-04-25] MEDS: ABATACEPT IVPB (13:35)
[2020-04-25] MEDS: SODIUM CHLORIDE 0.9% IVPB (13:35)
--- NOTE | 2020-04-25 14:13 | PC.NURSE ---
Discharged to home ambulatory,
== END 2020-04-25 13:02 | disposition home or self-care (01) ==
PROVIDERS: PCP Internal Medicine; Visit Provider Internal Medicine
DX: M05.9 Rheumatoid arthritis with rheumatoid factor, unspecified (principal)
CPT/HCPCS: 96365; J0129

== ENCOUNTER 2020-05-19 15:06 | Outpatient (RCR) | payer MEDICARE, SELFPAY ==
--- NOTE | 2020-05-19 15:58 | PTOPEVAL ---
Thank you for referring Brian Cano to [facility].? The patient is scheduled to be seen for therapy? __1__x/week for 4 visits. Please review, sign, date and return this plan of care BARBARA. I agree with and certify that the following plan of care is medically necessary. Referring Physician Date Admitting Provider: Attending Provider: Lauri Mosqueda, Referring Provider: *PT Outpatient Evaluation Start: 05/19/20 15:06 Freq: Status: Active Protocol: Document 05/19/20 15:06 TANVIR (Rec: 05/19/20 15:58 [email or web address] [id number]) Therapy Assessment Status Assessment Status Assessment Status Evaluation Outpatient Past Medical History Neurological History Hx Other Neurological Disorders Yes: NEUROPATHY LEGS AND FEET Cardiovascular History Hx Hypercholesterolemia Yes Hx Hypertension Yes Hx Other Cardiac Disorders Yes: DENIES CARDIAC SYMPTOMS Respiratory History Hx Respiratory Disorders No Significant History Gastrointestinal History Hx Gall Bladder Disease Yes Hx Gastroesophageal Reflux Disease Yes Hx Other Gastrointestinal Disorders Yes: COLONOSCOPY NOV 2019 Genitourinary History Hx Genitourinary Disorders No Significant History Musculoskeletal History Hx Joint Replacement Yes: 09/20/2019 RIGHT TOTAL KNEE REPLACEMENT Hx Rheumatoid Arthritis Yes Hx Spinal Surgery Yes: L4-L5 Hematological History Hx Hematological Disorders No Significant History Endocrine History Hx Endocrine Disorders No Significant History HEENT History Hx HEENT Disorders No Significant History Integumentary History Hx Skin Disorders No Significant History Reproductive History Hx Reproductive Disorders No Significant History Psychosocial History Hx Anxiety Yes Hx Depression Yes Pain History History of Any Previous or Ongoing No Significant History Instance of Pain Anesthesia History Hx Anesthesia Reactions No Significant History Evaluation Information Problem Diagnosis left AC joint OA, left shoulder pain Onset 10/27/19 Subjective Information Pt. reports that he has had Query Text:As Reported By Patient/ shoulder pain for several Family months. He states that he recieved recent injection that helped ease pain. He still notes discomfort with turning the head, reaching overhead with the left arm or reaching behind his back. He states that pain disrupts his ability
--- NOTE | 2020-06-30 17:11 | PCPTNOTE ---
Pt. attended a total of 3 treatment sessions from 05/19/20 to 06/02/20. He has failed to return to the clinic and will be discharged from our care. Refer to pt. last daily note for discharge status. Luis Fernando Qiu, MPT
== END 2020-06-02 09:20 | disposition home or self-care (01) ==
LOC: CHSPT 15:06
PROVIDERS: PCP Internal Medicine; Visit Provider Orthopaedic Surgery
DX: M19.012 Primary osteoarthritis, left shoulder (principal)
CPT/HCPCS: 97110; 97140; 97161

== ENCOUNTER 2020-05-28 09:47 | Outpatient (CLI) | payer MEDICARE, SELFPAY ==
--- NOTE | 2020-05-28 09:55 | PC.NURSE ---
Here for OP infusion, denies needs, call light in reach of patient
[2020-05-28] MEDS: SODIUM CHLORIDE 0.9% IVPB (10:20)
[2020-05-28] MEDS: MALTOSE IVPB (10:20)
[2020-05-28] MEDS: ABATACEPT IVPB (10:20)
--- NOTE | 2020-05-28 10:58 | PC.NURSE ---
Discharged to home, ambulatory, no questions or concerns
== END 2020-05-28 09:48 | disposition home or self-care (01) ==
LOC: CHSTREATRM 09:49
PROVIDERS: PCP Internal Medicine; Visit Provider Internal Medicine
DX: M05.9 Rheumatoid arthritis with rheumatoid factor, unspecified (principal)
CPT/HCPCS: 96365; J0129

== ENCOUNTER 2020-06-07 08:30 | Outpatient (CLI) | payer MEDICARE, SELFPAY ==
--- NOTE | ~2020-06-07 | MR_ITS ---
EXAMINATION: MR thoracic spine wo con DATE: 06/07/2020 09:47 INDICATION: Back pain. TECHNIQUE: Magnetic resonance imaging (MRI) of the thoracic spine was performed without intravenous c ontrast. Sagittal localizer T1-weighted FSE of the cervical spine was obtained. Thoracic spine sequen preet included sagittal T2-weighted FSE, sagittal T1-weighted FSE, sagittal T2-weighted FS FSE, and axi al T2-weighted FSE. COMPARISON: None FINDINGS: There is dextrocurvature of thoracic spine. Vertebral body heights are normal. There is a h emangioma in T11 vertebral body. There is mildly decreased disc height at T8-T9 and T9-T10. The discs do not extend beyond the endplate margins. There are bridging endplate osteophytes at multiple level s in the spine, consistent with diffuse idiopathic skeletal hyperostosis (DISH). There is multilevel facet joint osteoarthritis, mild at most levels. On the right, there is mild neural foraminal stenosi s at T5-T6, T7-T8, and T8-T9. On the left, there is mild neural foraminal stenosis at T7-T8. 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 IMPRESSION: 1. Mild thoracic spondylosis. 2. DISH. 3. 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 Reviewed, dictated and finalized at location A. CIATE PROFESSOR OF AUTOMATION
--- NOTE | ~2020-06-07 | MR_ITS ---
EXAMINATION: MR lumbar spine wo con DATE: 06/07/2020 09:47 INDICATION: Low back pain. TECHNIQUE: Magnetic resonance imaging (MRI) of the lumbar spine was performed without intravenous con trast. Sequences included sagittal T2-weighted FSE, sagittal STIR FSE, sagittal T1-weighted FSE, and axial T2-weighted FSE. COMPARISON: None FINDINGS: There is 14 degrees levoscoliosis of lumbar spine. There is 3 mm retrolisthesis of L1 on L2 , 4 mm retrolisthesis of L2 on L3, and 4 mm anterolisthesis of L4 on L5. Vertebral body heights are n ormal. There is a hemangioma in T11 vertebral body. There are changes of posterior fusion procedure a t L4-L5 with pedicle screws. There is moderately decreased disc height at L1-L2 and L2-L3 and mildly decreased disc height at L4-L5. The distal spinal cord signal intensity is normal. The conus medullar is is at L1. The following disc levels are specifically discussed: L1-L2: The disc is bulging and has an annular fissure. There is moderate right and mild left facet kain int osteoarthritis. There is mild bilateral neural foraminal stenosis. There is mild central canal st enosis. L2-L3: The disc is bulging. There is mild bilateral facet joint osteoarthritis. There is moderate neil ateral neural foraminal stenosis. There is mild central canal stenosis. L3-L4: The disc is bulging. There is severe right and moderate left facet joint osteoarthritis. There is moderate bilateral neural foraminal stenosis. There is mild central canal stenosis. L4-L5: The disc is bulging and has an inlet fissure. There is severe bilateral facet joint osteoarthr itis. There is mild bilateral neural foraminal stenosis. There is mild central canal stenosis. L5-S1: The disc is bulging. There is severe bilateral facet joint osteoarthritis. There is mild right and moderate left neural foraminal stenosis. There is mild central canal stenosis. IMPRESSION: 1. Moderate lumbar spondylosis. 2. Posterior fusion procedure at L4-L5. 3. Lumbar levoscoliosis. Reviewed, dictated and finalized at location A. OR TRIAL ATTORNEY
== END 2020-06-07 08:31 | disposition home or self-care (01) ==
LOC: CHSIMG 08:33
PROVIDERS: PCP Internal Medicine; Visit Provider Nurse Practitioner Adult Health
DX: M54.6 Pain in thoracic spine (principal); M54.16 Radiculopathy, lumbar region
CPT/HCPCS: 72146; 72148

== ENCOUNTER 2020-06-24 14:42 | Emergency (ER) | payer MEDICARE, SELFPAY ==
--- NOTE | ~2020-06-24 | CT_ITS ---
EXAMINATION: CT abdomen pelvis wo con EXAM DATE: 06/24/2020 16:07 INDICATION: Abdominal pain, right upper quadrant pain. Postcholecystectomy. Colon cancer. Diarrhea. TECHNIQUE: Spiral CT of the abdomen and pelvis was performed without contrast. Axial, coronal and s agittal images were reviewed. The dose-length product (DLP) for this examination was 943.75 mGy-cm. The exposure was tailored according to patient size (auto mA exposure control), and iterative recons truction (ASIR) was used as additional dose reduction technique. There is no prior study for compari son. 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 The liver, spleen, adrenal glands and pa ncreas are unremarkable. There are cholecystectomy clips, and an unremarkable gallbladder fossa. Th ere is no nephrolithiasis or hydronephrosis. The prostate is unremarkable. The bladder is undisten ded at time of imaging. There is no retroperitoneal or pelvic lymphadenopathy. There is mild scatt ered arteriosclerotic disease. The appendix is normal. The stomach and small bowel are unremarkable. There is moderate sigmoid, mil d descending colonic diverticulosis. There is no adjacent inflammatory change to suggest diverticul itis. There is expected amount of colonic stool. No free intraperitoneal gas. The heart is normal in size. There are no pericardial or pleural effusions. The lung bases are unremarkable. Posterio r fusion L4-5. IMPRESSION: 1. No acute intra-abdominal findings. 2. 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 3. Colonic diverticulosis. Reviewed, dictated and finalized at location A.
[2020-06-24] MEDS: SODIUM CHLORIDE 0.9% IV 1,000 ML 999 ML IV CONT (15:48)
[2020-06-24] MEDS: ONDANSETRON INJ 4 MG/2 ML VIAL IV PUSH (15:48)
[2020-06-24 15:55] LABS: Basophils Absolute Auto 0.02 K/mm3 (0.00-0.10); Basophils Percent Auto 0.4 % (0.0-1.0); Eosinophils Absolute Auto 0.01 K/mm3 (0.02-0.50); Eosinophils Percent Auto 0.2 % (1.0-6.0); Hematocrit 45.2 % (37.0-46.0); Hemoglobin 15.6 g/dL (12.4-15.3); Immature Granulocyte Absolute 0.06 K/mm3 (0.00-0.00); Immature Granulocyte Percent A 1.1 % (0.0-0.0); Lymphocytes Absolute Auto 1.74 K/mm3 (1.10-4.50); Lymphocytes Percent Auto 30.7 % (18.0-42.0); Mean Corpuscular HGB Conc 34.5 g/dL (32.0-36.0); Mean Corpuscular Hemoglobin 31.9 pg (27.0-31.0); Mean Corpuscular Volume 92.4 fL (78.0-102.0); Mean Platelet Volume 8.7 fl (8.7-11.0); Monocytes Absolute Auto 0.41 K/mm3 (0.10-0.90); Monocytes Percent Auto 7.2 % (2.0-11.0); Neutrophils Absolute Auto 3.4 K/mm3 (1.7-7.2); Neutrophils Percent Auto 60.4 % (50.0-70.0); Platelet Count Result 233 K/mm3 (150-420); Red Blood Count 4.89 M/mm3 (4.70-6.10); Red Cell Distribution Width 12.9 % (11.6-14.4); White Blood Count 5.7 K/mm3 (4.8-10.8)
[2020-06-24 15:56] LABS: Add Urine Microscopic? NO; Appearance Urine Clear (Clear); Bilirubin Urine Negative (Negative); Blood Urine Negative (Negative); Color Urine Yellow (Yellow); Glucose Urine UA Negative (Negative); Ketones Urine Negative (Negative); Leukocyte Esterase Ur Negative LEU/UL (Negative); Nitrate Urine Negative (Negative); Protein Urine Negative (Negative)
[2020-06-24 15:58] VITALS: BP 158/87; PULSE 64; RESP 20; TEMP 36.3; O2SAT 99
[2020-06-24 16:11] LABS: Alanine Aminotransferase 15 U/L (16-63); Albumin Level 4.1 g/dL (3.4-5.0); Alkaline Phosphatase 89 U/L (46-116); Anion Gap 10 mmol/L (8-16); Aspartate Amino Transferase < 10 U/L (15-37); Bilirubin,Total 0.6 mg/dL (0.00-1.00); Blood Urea Nitrogen 16 mg/dL (7-18); Calcium 8.9 mg/dL (8.5-10.1); Carbon Dioxide 29 mmol/L (21-32); Chloride 95 mmol/L (98-108); Estimated CRCL calculation 50 ml/min; Estimated Glomerular Filt Rate 48; Glucose 106 mg/dL (70-99); Lipase 50 U/L (73-393); Osmolality Calculated 279 mOsm/kg (285-295); Potassium 3.9 mmol/L (3.5-5.1); Sodium 134 mmol/L (136-145); Total Protein 6.9 g/dL (6.4-8.2)
--- NOTE | 2020-06-24 17:02 | ED.ABDPAIN ---
HPI - Abdominal Pain General Chief Complaint: Abdominal Pain Stated Complaint: side pain Source: patient and family Mode of arrival: ambulatory Limitations: no limitations History of Present Illness HPI narrative: Pt had his gallbladder removed in october of this year. He states ever since that surgery he has had pain in RUQ. He said its there always, but over the last few weeks it has gotten much worse. He states pain is better if he presses really hard under his right rib cage. (he does this alot, and even had red nathan on his skin from pressing so much and so hard. He said he feels like there is a bubble under is epigastrim, and then it goes over to under right rib cage, and then to his umbilicus. He gets nauseated, and said he really doesnt eat much because food sounds so bad. He has lost 65 lbs since last fall. He denies fevers, and does not have consistant constipation or diarrhea. He denies issues. He seems very anxious. MD elicited complaint: abdominal pain Pertinent past history: other (pain ever since surgery in october) Pain Consistency: constant Location: RUQ Severity: moderate Quality: aching Migration to: no migration Exacerbating factors: nothing Relieving factors: nothing Associated symptoms: nausea Related Data Home Medications Medication Instructions Recorded Confirmed alprazolam 2 mg tablet 2 mg PO DAILY 11/22/19 01/02/20 atorvastatin 10 mg tablet 10 mg PO DAILY 11/22/19 01/02/20 cyanocobalamin (vitamin B-12) 1,000 mcg PO DAILY 11/22/19 01/02/20 1,000 mcg capsule diclofenac sodium 1.5 % topical 1 pkg TOPICAL DAILY 11/22/19 01/02/20 drops-menthol 10 % roll-on combo pack losartan 50 mg tablet 50 mg PO DAILY 11/22/19 01/02/20 pantoprazole 40 mg tablet,delayed 40 mg PO QAM 11/22/19 01/02/20 release sertraline 100 mg tablet 100 mg PO DAILY 11/22/19 01/02/20 tizanidine 4 mg capsule 4 mg PO TID PRN 11/22/19 01/02/20 triamcinolone acetonide 0.1 % 1 applic TOPICAL BID 11/22/19 01/02/20 topical cream Allergies Allergy/AdvReac Type Severity Reaction Status Date / Time clindamycin Allergy Gastrointestinal Verified 06/24/20 16:24 Upset hydrocodone Allergy Confusion Verified 06/24/20 16:24 methotrexate Allergy Other Verified 06/24/20 16:24 niacin Allergy Fatigued Verified 06/24/20 16:24 zinc Allergy Fatigued Verified 06/24/20 16:24 Review of Systems Review of Systems: All systems reviewed & are unremarkable except as noted in HPI and below Constitutional: Constitutional: Reports no additional constitutional complaints Eyes: Eyes: Reports no additional eye complaints ENT: Reports system reviewed and no additional complaints, except as documented Cardiovascular: Cardiovascular: Reports no additional cardiovascular complaints Respiratory: Respiratory: Reports no additional respiratory complaints Gastrointestinal: Gastrointestinal: Reports abdominal pain, Reports bloating, Reports constipation, Denies heartburn, Reports diarrhea, Reports nausea and Denies vomiting Genitourinary: Genitourinary: Reports no additional male genitourinary complaints Musculoskeletal: Musculoskeletal: Reports no additional musculoskeletal complaints Integumentary/Breasts: Skin/Breast: Reports system reviewed and no additional complaints, except as docu Neurologic: Reports system reviewed and no additional complaints, except as documented PMFSH Past Medical History Medical History Anxiety Colon cancer screening Depression Hyperlipidemia Hypertension Nausea & vomiting Neuropathy Rheumatoid arthritis RUQ pain Surgical History Surgical History History of colonoscopy History of knee surgery Hx laparoscopic cholecystectomy 12/19/2019 Social History Social History Smoking status: Never smoker Alcohol intake: former Sub
[2020-06-24 17:37] VITALS: BP 147/80; PULSE 60; RESP 20; TEMP 36.7; O2SAT 96
== END 2020-06-24 17:41 | disposition home or self-care (01) ==
PROVIDERS: Emergency Provider Emergency Medicine; PCP Internal Medicine
DX: R10.11 Right upper quadrant pain (principal); E78.5 Hyperlipidemia, unspecified; I10 Essential (primary) hypertension; M06.9 Rheumatoid arthritis, unspecified; Z87.891 Personal history of nicotine dependence
CPT/HCPCS: 36415; 74176; 80053; 81003; 83690; 85025; 96361; 96374; 99283; 99284; J2405; J7030

== ENCOUNTER 2020-06-27 13:08 | Outpatient (CLI) | payer MEDICARE, SELFPAY ==
--- NOTE | 2020-06-27 13:20 | PC.NURSE ---
Here for OP infusion
[2020-06-27] MEDS: ABATACEPT IVPB (14:00)
[2020-06-27] MEDS: SODIUM CHLORIDE 0.9% IVPB (14:00)
[2020-06-27] MEDS: MALTOSE IVPB (14:00)
--- NOTE | 2020-06-27 14:35 | PC.NURSE ---
Discharged ambulatory to home
== END 2020-06-27 13:09 | disposition home or self-care (01) ==
LOC: CHSTREATRM 13:11
PROVIDERS: PCP Internal Medicine; Visit Provider Internal Medicine
DX: M05.9 Rheumatoid arthritis with rheumatoid factor, unspecified (principal)
CPT/HCPCS: 96365; J0129

== ENCOUNTER 2020-07-25 17:01 | Outpatient (RCR) | payer MEDICARE, SELFPAY ==
--- NOTE | 2020-07-25 17:49 | PTOPEVAL ---
Thank you for referring Brian Cano to [facility] [place] The patient is scheduled to be seen for therapy? ____x/week for ___ weeks. Please review, sign, date and return this plan of care BARBARA. I agree with and certify that the following plan of care is medically necessary. Referring Physician Date Admitting Provider: Attending Provider: Yuriy Quarles Referring Provider: *PT Outpatient Evaluation Start: 07/25/20 16:21 Freq: Status: Active Protocol: Document 07/25/20 17:03 ACR (Rec: 07/25/20 17:48 ACR [id number]) Therapy Assessment Status Assessment Status Assessment Status Evaluation Outpatient Past Medical History Neurological History Hx Other Neurological Disorders Yes: NEUROPATHY LEGS AND FEET Cardiovascular History Hx Hypercholesterolemia Yes Hx Hypertension Yes Hx Other Cardiac Disorders Yes: DENIES CARDIAC SYMPTOMS Respiratory History Hx Respiratory Disorders No Significant History Gastrointestinal History Hx Gall Bladder Disease Yes Hx Gastroesophageal Reflux Disease Yes Hx Other Gastrointestinal Disorders Yes: COLONOSCOPY NOV 2019 Genitourinary History Hx Genitourinary Disorders No Significant History Musculoskeletal History Hx Joint Replacement Yes: 09/20/2019 RIGHT TOTAL KNEE REPLACEMENT Hx Rheumatoid Arthritis Yes Hx Spinal Surgery Yes: L4-L5 Hematological History Hx Hematological Disorders No Significant History Endocrine History Hx Endocrine Disorders No Significant History HEENT History Hx HEENT Disorders No Significant History Integumentary History Hx Skin Disorders No Significant History Reproductive History Hx Reproductive Disorders No Significant History Psychosocial History Hx Anxiety Yes Hx Depression Yes Pain History History of Any Previous or Ongoing No Significant History Instance of Pain Anesthesia History Hx Anesthesia Reactions No Significant History Evaluation Information Problem Diagnosis L TKA Onset 07/22/20 Additional Evaluation Detail 27.5% disability Subjective Information Patient states that he got Query Text:As Reported By Patient/ surgery on 07/22/20. He was Family discharged on 07/23/20. He states he is able to navigate the stairs, but with a cane. He states he has 16 steps to get into his home. Patient states that he is able to walk and maintains the 50% WB status per the MD's protocol. Patient states h
--- NOTE | 2020-09-04 07:08 | PCPTNOTE ---
Patient is a 70 year old male that participated in 7 visits s/p L TKA. The patient contacted the clinic and felt he was doing fine, so would like to be discharged at this time. Please refer to patient's recent treatment note for discharge summary. Thank you, RE ParkerT
== END 2020-08-19 09:19 | disposition home or self-care (01) ==
LOC: CHSPT 17:01
PROVIDERS: PCP Internal Medicine
DX: Z96.652 Presence of left artificial knee joint (principal)
CPT/HCPCS: 97016; 97110; 97161

== ENCOUNTER 2020-08-05 09:20 | Outpatient (CLI) | payer MEDICARE, SELFPAY ==
[2020-08-05 09:34] VITALS: BP 120/69; PULSE 72; RESP 18; TEMP 36.6; O2SAT 99
[2020-08-05] MEDS: MALTOSE IVPB (09:50)
[2020-08-05] MEDS: SODIUM CHLORIDE 0.9% IVPB (09:50)
[2020-08-05] MEDS: ABATACEPT IVPB (09:50)
--- NOTE | 2020-08-05 12:14 | PC.NURSE ---
Patient was here tolerated monthly orecenia infusion well. No concerns voiced. Safe exit of hospital. Will return next month.
== END 2020-08-05 09:21 | disposition home or self-care (01) ==
LOC: CHSTREATRM 09:22
PROVIDERS: PCP Internal Medicine; Visit Provider Internal Medicine
DX: M05.9 Rheumatoid arthritis with rheumatoid factor, unspecified (principal)
CPT/HCPCS: 96365; J0129

== ENCOUNTER 2020-09-01 13:29 | Outpatient (CLI) | payer MEDICARE, SELFPAY ==
[2020-09-01 14:00] VITALS: BP 110/70; PULSE 72; RESP 14; TEMP 36.3; O2SAT 98
[2020-09-01] MEDS: SODIUM CHLORIDE 0.9% IVPB (14:12)
[2020-09-01] MEDS: ABATACEPT IVPB (14:12)
[2020-09-01] MEDS: MALTOSE IVPB (14:12)
--- NOTE | 2020-09-01 14:52 | PC.NURSE ---
Patient tolerated monthly IV Orencia infusion well. Reports has been having increase pain from his RA knew it was getting time for his infusion. Medication reviewed with patient. Safe exit of hospital. Will return September 29, 2020.ALESSANDRO
== END 2020-09-01 13:30 | disposition home or self-care (01) ==
PROVIDERS: PCP Internal Medicine; Visit Provider Internal Medicine
DX: M05.9 Rheumatoid arthritis with rheumatoid factor, unspecified (principal)
CPT/HCPCS: 96365; J0129

== ENCOUNTER 2020-09-29 13:11 | Outpatient (CLI) | payer MEDICARE, SELFPAY ==
--- NOTE | 2020-09-29 13:22 | PC.NURSE ---
Presents for OP infusion
[2020-09-29] MEDS: MALTOSE IVPB (13:54)
[2020-09-29] MEDS: SODIUM CHLORIDE 0.9% IVPB (13:54)
[2020-09-29] MEDS: ABATACEPT IVPB (13:54)
--- NOTE | 2020-09-29 14:28 | PC.NURSE ---
Infusion complete, tolerated well, ambulatory to home
== END 2020-09-29 13:12 | disposition home or self-care (01) ==
LOC: CHSTREATRM 13:15
PROVIDERS: PCP Internal Medicine; Visit Provider Internal Medicine
DX: M05.9 Rheumatoid arthritis with rheumatoid factor, unspecified (principal)
CPT/HCPCS: 96365; J0129

== ENCOUNTER 2020-10-15 15:20 | Outpatient (CLI) | payer MEDICARE, SELFPAY ==
--- NOTE | ~2020-10-15 | US_ITS ---
EXAMINATION: US scrotum doppler EXAM DATE: 10/15/2020 15:50 INDICATION: R testicular mass /pain. TECHNIQUE: Multiple grayscale and Doppler images of the testicles and scrotum were obtained bilateral ly. There is no prior study for comparison. FINDINGS: Right testicle measures 3.9 x 2.3 x 3.4 cm and is morphologically normal. Low resistance Doppler barrett w confirmed. The epididymis is unremarkable. There is a moderate-sized right-sided hydrocele with joyce e septations. Left testicle measures 3.5 x 2.7 x 3.2 cm and is morphologically normal. Low resistance Doppler flow confirmed. The epididymis is unremarkable. There is small to moderate-sized hydrocele also with some septations. IMPRESSION: Bilateral hydroceles with septations, larger on the right. Sonographically morphologicall y normal testicles. Reviewed, dictated and finalized at location G. IMPRESSION: Bilateral hydroceles with septations, larger on the right. Sonograp hically morphologically normal testicles.
== END 2020-10-15 15:21 | disposition home or self-care (01) ==
LOC: CHSIMG 15:23
PROVIDERS: PCP Internal Medicine; Visit Provider Internal Medicine
DX: N50.89 Other specified disorders of the male genital organs (principal); N43.3 Hydrocele, unspecified
CPT/HCPCS: 76870; 93976

== ENCOUNTER 2020-10-27 13:26 | Outpatient (CLI) | payer MEDICARE, SELFPAY ==
[2020-10-27 13:42] VITALS: BP 112/62; PULSE 72; RESP 14; TEMP 36.8; O2SAT 98
[2020-10-27 13:45] VITALS: BMI 29.2
[2020-10-27] MEDS: SODIUM CHLORIDE 0.9% IVPB (14:15)
[2020-10-27] MEDS: ABATACEPT IVPB (14:15)
[2020-10-27] MEDS: MALTOSE IVPB (14:15)
--- NOTE | 2020-10-27 14:47 | PC.NURSE ---
Patient tolerated monthly Orencia IV infusion for his RA. No concerns voiced. Safe exit of hospital. Will return Nov 24, 2020.
== END 2020-10-27 13:27 | disposition home or self-care (01) ==
PROVIDERS: PCP Internal Medicine; Visit Provider Internal Medicine
DX: M05.9 Rheumatoid arthritis with rheumatoid factor, unspecified (principal)
CPT/HCPCS: 96365; J0129

== ENCOUNTER 2020-11-24 12:53 | Outpatient (CLI) | payer MEDICARE, SELFPAY ==
[2020-11-24 13:17] VITALS: BP 122/70; PULSE 72; RESP 14; TEMP 36.8; O2SAT 97
[2020-11-24] MEDS: SODIUM CHLORIDE 0.9% IVPB (13:35)
[2020-11-24] MEDS: MALTOSE IVPB (13:35)
[2020-11-24] MEDS: ABATACEPT IVPB (13:35)
--- NOTE | 2020-11-24 14:49 | PC.NURSE ---
Patient here for q 4 week Orencia IV infusion. No concerns voiced. Education on med reviewed with patient. IV Orencia administered. Tolerated well. Safe exit of hospital. Will return December 22, 2020 at 1300.
== END 2020-11-24 12:54 | disposition home or self-care (01) ==
LOC: CHSTREATRM 12:59
PROVIDERS: PCP Internal Medicine; Visit Provider Internal Medicine
DX: M05.9 Rheumatoid arthritis with rheumatoid factor, unspecified (principal)
CPT/HCPCS: 96365; J0129

== ENCOUNTER 2020-12-22 13:02 | Outpatient (CLI) | payer MEDICARE, SELFPAY ==
[2020-12-22 13:15] VITALS: BP 130/71; PULSE 68; RESP 14; TEMP 36.4; O2SAT 97
[2020-12-22] MEDS: MALTOSE IVPB (13:45)
[2020-12-22] MEDS: SODIUM CHLORIDE 0.9% IVPB (13:45)
[2020-12-22] MEDS: ABATACEPT IVPB (13:45)
[2020-12-22 14:00] VITALS: BMI 30.7
--- NOTE | 2020-12-22 14:21 | PC.NURSE ---
Patient here for his monthly IV Orencia infusion. NO concerns voiced. Orencia Infusion administered see MAY. Tolerated well. Safe exit of hospital. Will return 2020 at 1300.
== END 2020-12-22 13:03 | disposition home or self-care (01) ==
PROVIDERS: PCP Internal Medicine; Visit Provider Internal Medicine
DX: M05.9 Rheumatoid arthritis with rheumatoid factor, unspecified (principal)
CPT/HCPCS: 96365; J0129

== ENCOUNTER 2021-01-08 13:30 | Outpatient (CLI) | payer MEDICARE, SELFPAY ==
--- NOTE | 2021-01-08 13:30 | ECG_ITS ---
Measurements Intervals [place] Rate: 66 P: 57 ND: 190 QRS: -26 QRSD: 110 T: 33 QT: 371 QTc: 391 Interpretive Statements SINUS RHYTHM INCOMPLETE RIGHT BUNDLE BRANCH BLOCK DELAYED PRECORDIAL R/S TRANSITION BASELINE ARTIFACT- I, III, AVL BORDERLINE ECG Electronically Signed On 01-08-2021 14:00:26 CDT by Wenceslao Garcia D.O.
== END 2021-01-08 13:31 | disposition home or self-care (01) ==
PROVIDERS: PCP Internal Medicine; Visit Provider Surgery
DX: Z01.818 Encounter for other preprocedural examination (principal); K40.90 Unilateral inguinal hernia, without obstruction or gangrene, not specified as recurrent; I10 Essential (primary) hypertension; I45.10 Unspecified right bundle-branch block
CPT/HCPCS: 36415; 86850; 86900; 86901; 93005

== ENCOUNTER 2021-01-12 02:45 | Day surgery (SDC) | payer MEDICARE, SELFPAY ==
[2021-01-06 12:49] VITALS: BMI 30.7
[2021-01-12] VITALS (12 sets, daily range): BP systolic 101–148; BP diastolic 53–81; PULSE 55–78; RESP 12–16; TEMP 36–37.2; O2SAT 98–100
--- NOTE | 2021-01-12 09:08 | PM.IMHP ---
H&P: HPI History of Present Illness Date/Time: 01/12/21 09:08 Pt reports right groin pain, bulging over last few months. Pt reports he first noticed after episode of heavy straining, coughing. Pt also reports growth on R scrotum, testicle. Pt reports pain is worse c exertion, straining c BMs. Pt is cj diet and denies any s/s obstruction. Pt denies any episode of incarceration. Chief Complaint: right inguinal hernia Review of Systems Review of Systems: All systems reviewed & are unremarkable except as noted in HPI and below PMFSH Past Medical History Medical History Anxiety Colon cancer screening Depression Hyperlipidemia Hypertension Nausea & vomiting Neuropathy Rheumatoid arthritis RUQ pain Surgical History Surgical History History of colonoscopy History of knee surgery Hx laparoscopic cholecystectomy 12/19/2019 Family History Family History Sibling Diabetes mellitus Social History Social History Smoking status: Never smoker Alcohol intake: former Alcohol use details: FORMER SOCIAL DRINKER Substance use: never Substance use type: does not use Living arrangements: with family Additional living arrangements comments: SPOUSE Gender identity (if verbalized by the patient): Male Spiritual care concerns: No Meds Home Medications and Allergies Home Medications Medication Instructions Recorded Confirmed Type alprazolam 2 mg tablet 2 mg PO DAILY 11/22/19 01/06/21 History atorvastatin 10 mg tablet 10 mg PO DAILY 11/22/19 01/06/21 History cyanocobalamin (vitamin B-12) 1,000 mcg PO DAILY 11/22/19 01/06/21 History 1,000 mcg capsule diclofenac sodium 1.5 % topical 1 pkg TOPICAL TID PRN 11/22/19 01/06/21 History drops-menthol 10 % roll-on combo pack losartan 50 mg tablet 100 mg PO QAM 11/22/19 01/06/21 History sertraline 100 mg tablet 50 mg PO QAM 11/22/19 01/06/21 History triamcinolone acetonide 0.1 % 1 applic TOPICAL BID PRN 11/22/19 01/06/21 History topical cream ascorbic acid (vitamin C) 2 g PO DAILY 01/06/21 01/06/21 History cholecalciferol (vitamin D3) 50 mcg PO DAILY 01/06/21 01/06/21 History cyanocobalamin (vitamin B-12) 1,000 mcg PO DAILY 01/06/21 01/06/21 History dextroamphetamine-amphetamine 10 mg PO QAM 01/06/21 01/06/21 History gabapentin 100 mg PO BID 01/06/21 01/06/21 History vitamin E 400 unit PO DAILY 01/06/21 01/06/21 History terbinafine HCl 250 mg PO DAILY 01/08/21 01/08/21 History Allergies Allergy/AdvReac Type Severity Reaction Status Date / Time banana Allergy Severe Swelling Verified 01/06/21 12:41 of Lip/Tongue/Throat doxycycline Allergy Swelling Verified 01/06/21 12:42 of Lip/Tongue/Throat methotrexate Allergy ABN Verified 01/06/21 12:41 BRUISING/SKIN TEARS niacin Allergy Difficulty Verified 01/06/21 12:41 Breathing nut - unspecified Allergy Swelling Verified 01/06/21 12:41 of Lip/Tongue/Throat clindamycin AdvReac Severe Gastrointestinal Verified 01/06/21 12:41 Upset, SEVERE DIARRHEA hydrocodone AdvReac Confusion Verified 01/12/21 08:05 zinc AdvReac SEVERE Verified 01/06/21 12:41 Fatigue zolpidem [From Ambien] AdvReac CHEST Verified 01/07/21 14:38 PAIN, SOB, ANXIETY Exam Const: General: cooperative, comfortable and no acute distress Nutritional Appearance: obese Orientation/consciousness: patient oriented x3 Resp: Effort & Inspection: normal respiratory effort Auscultation: clear to auscultation bilaterally Cardio: Rate: regular rate Rhythm: regular rhythm GI: Inspection: normal to inspection and distended GI Palp: Yes abdominal tenderness, Yes Soft to palpation, Yes Tenderness to palpation present (GI) and Yes Hernia present Other: RI
[2021-01-12] MEDS: ACETAMINOPHEN 500 MG TABLET 1000 MG PO (09:09)
[2021-01-12] MEDS: KETOROLAC 15 MG/ML VIAL (*BKC) IV PUSH (09:09)
--- NOTE | 2021-01-12 09:09 | WPDANESEPPF ---
Anes - Initial Pre Proc Eval Procedure: Operation Date: 01/12/21 10:00 Proposed Procedures p Robotic Assisted Laparoscopic Right Inguinal Hernia Repair with Mesh - Cari Medrano MD Date/Time: 01/12/21 09:09 Surgeon: Cari Medrano MD Pre Op Diagnosis: right inguinal hernia Patient Data Age: 70 Gender: M Height: 1.8 m Weight: 100 kg Allergies Allergy/AdvReac Type Severity Reaction Status Date / Time banana Allergy Severe Swelling Verified 01/06/21 12:41 of Lip/Tongue/Throat doxycycline Allergy Swelling Verified 01/06/21 12:42 of Lip/Tongue/Throat methotrexate Allergy ABN Verified 01/06/21 12:41 BRUISING/SKIN TEARS niacin Allergy Difficulty Verified 01/06/21 12:41 Breathing nut - unspecified Allergy Swelling Verified 01/06/21 12:41 of Lip/Tongue/Throat clindamycin AdvReac Severe Gastrointestinal Verified 01/06/21 12:41 Upset, SEVERE DIARRHEA hydrocodone AdvReac Confusion Verified 01/12/21 08:05 zinc AdvReac SEVERE Verified 01/06/21 12:41 Fatigue zolpidem [From Ambien] AdvReac CHEST Verified 01/07/21 14:38 PAIN, SOB, ANXIETY Home Medications Medication Instructions Recorded Confirmed Type alprazolam 2 mg tablet 2 mg PO DAILY 11/22/19 01/06/21 History atorvastatin 10 mg tablet 10 mg PO DAILY 11/22/19 01/06/21 History cyanocobalamin (vitamin B-12) 1,000 mcg PO DAILY 11/22/19 01/06/21 History 1,000 mcg capsule diclofenac sodium 1.5 % topical 1 pkg TOPICAL TID PRN 11/22/19 01/06/21 History drops-menthol 10 % roll-on combo pack losartan 50 mg tablet 100 mg PO QAM 11/22/19 01/06/21 History sertraline 100 mg tablet 50 mg PO QAM 11/22/19 01/06/21 History triamcinolone acetonide 0.1 % 1 applic TOPICAL BID PRN 11/22/19 01/06/21 History topical cream ascorbic acid (vitamin C) 2 g PO DAILY 01/06/21 01/06/21 History cholecalciferol (vitamin D3) 50 mcg PO DAILY 01/06/21 01/06/21 History cyanocobalamin (vitamin B-12) 1,000 mcg PO DAILY 01/06/21 01/06/21 History dextroamphetamine-amphetamine 10 mg PO QAM 01/06/21 01/06/21 History gabapentin 100 mg PO BID 01/06/21 01/06/21 History vitamin E 400 unit PO DAILY 01/06/21 01/06/21 History terbinafine HCl 250 mg PO DAILY 01/08/21 01/08/21 History Patient hx anesthesia problems: none Family hx anesthesia problems: none Results Review: All pre-operative results and documents have been reviewed as part of the pre-operative evaluation. [facility], [facility] Past Medical History Medical History Anxiety Colon cancer screening Depression Hyperlipidemia Hypertension Nausea & vomiting Neuropathy Rheumatoid arthritis RUQ pain Surgical History Surgical History History of colonoscopy History of knee surgery Hx laparoscopic cholecystectomy 12/19/2019 Family History Family History Sibling Diabetes mellitus Social History Social History Smoking status: Never smoker Alcohol intake: former Alcohol use details: FORMER SOCIAL DRINKER Substance use: never Substance use type: does not use Living arrangements: with family Additional living arrangements comments: SPOUSE Gender identity (if verbalized by the patient): Male Spiritual care concerns: No Anes - Eval Final PreProcedure Day of Procedure 01/12/21 09:09 Patient weight: obese Heart: regular rate and rhythm Lungs: clear to auscultation Airway: Mallampati scale class II Neurological: alert and oriented Last oral intake: >/= 8 hours ASA classification: III Emergent: no Anesthetic plan: proceed Anesthesia type and monitoring: general ETT and standard monitoring Results Review: All pre-operative results and documents have been reviewed as part of the pre-operative evaluation. In
--- NOTE | 2021-01-12 09:11 | WPDHPUPDATE1 ---
History and Physical Update Update Date/Time: 01/12/21 09:11 History and Physical has been reviewed, including an updated exam of the patient. There are NO changes in the patient's condition. Risks, benefits, and alternatives have been discussed and questions answered. Patient agrees to proceed with procedure.
[2021-01-12] MEDS: LACTATED RINGERS 1,000 ML 30 ML IV CONT ×3 (09:14→11:36)
[2021-01-12] MEDS: ceFAZolin 2 GM/D5W 50 ML 2 GM/50 ML BAG IVPB (09:24)
[2021-01-12] MEDS: BUPIVACAINE HCL 0.5% PF 30 ML VIAL INFILTRATE (10:41)
--- NOTE | 2021-01-12 10:44 | P.OP_ITS ---
Procedure Note - Detailed Date of Procedure 01/12/21 Pre-op Diagnosis right inguinal hernia Post-op Diagnosis same Procedure Performed robotic assisted repair right inguinal hernia Surgeon Cari Medrano MD Anesthesia general Indications 70 y/o M c right inguinal hernia worsening over last few mos Findings moderate sized indirect RIH Description of Procedure Patient was brought into the operating room and placed in the supine position. After adequate induction of general anesthesia, the patient was prepped and draped in normal sterile fashion. A time-out was then done to verify the patient's identity, as well as the procedure being performed. Began by making a 8 mm incision in the supraumbilical region, a Veress needle was then placed into the peritoneal cavity. CO2 gas was then insufflated and after adequate pneumoperitoneum was achieved, the Veress needle was removed. I then placed an 8 mm trocar through this incision. I then placed the endoscope through this trocar site and under direct visualization placed 2 further 8 mm ports in the right and left mid abdomen. The [employer] robot was then docked to the 3 trocar sites. I then scrubbed out and went to the robotic console. Upon examining the pelvis, it was noted that the patient had a right inguinal hernia. The left side was examined and no hernia defect was noted. I began by making a preperitoneal flap approximately 6 cm superior to the defect. This flap was carried medially past the umbilical ligaments in laterally to the transversalis. It then began dissection of my medial compartment taking this down to the pubic tubercle. I then began the lateral dissection taking this down to the transversalis fascia. Once these compartments were achieved, I began dissection around the cord structures. It was noted at this point the patient had a moderate sized indirect hernia. Using careful dissection, was able to reduce the indirect hernia sac off the cord structures. Once this was adequately done, I went ahead and placed a 15 x 10 piece of Pro Flexible Shaft Winder mesh into the abdominal cavity. The mesh was carefully positioned, centering the center of the mesh over the indirect defect. Once this was done, was very satisfied with our repair. I then closed the peritoneal flap with a running 2.0 V Lock suture. The abdomen was then desufflated, and all ports were removed. All incisions were then closed with the 4.0 monocryl suture. Dermabond was placed on each wound. The patient tolerated the procedure well, was extubated in the operating room postoperatively, and will now be transferred to the recovery room in stable condition. Implants 15 x 10 Pro Flexible Shaft Winder mesh Estimated Blood Loss 5 Drains No Packing No Pathology none sent Complications No immediate complications Condition stable Disposition PACU
--- NOTE | 2021-01-12 14:06 | SUR.PHASEII ---
[address] KWAN IN REGARDS TO CHANGING TAKE HOME PRESCRIPTION FROM HYDROCODONE TO OXYCODONE. STATES HE WILL DISCONTINUE THE HYDROCODONE & ORDER OXYCODONE. ALSO INFORMED THAT PT HAS URINATED 20ML X2. STATES PT CAN BE DISCHARGED HOME.
== END 2021-01-12 14:30 | disposition home or self-care (01) ==
PROVIDERS: PCP Internal Medicine; Visit Provider Surgery
PROC: 8E0Y4CZ Robotic Assisted Procedure of Lower Extremity, Percutaneous Endoscopic Approach (ICD-10-PCS; CPT 49650; principal; 2021-01-12 10:00)
DX: K40.90 Unilateral inguinal hernia, without obstruction or gangrene, not specified as recurrent (principal); I10 Essential (primary) hypertension; E78.5 Hyperlipidemia, unspecified; M06.9 Rheumatoid arthritis, unspecified; G62.9 Polyneuropathy, unspecified; F41.8 Other specified anxiety disorders; E66.9 Obesity, unspecified; Z68.30 Body mass index [BMI] 30.0-30.9, adult
CPT/HCPCS: 49650; S2900; A9270; C1781; J0171; J0690; J1100; J1885; J2250; J2270; J2405; J2704; J7120

== ENCOUNTER 2021-01-19 13:07 | Outpatient (CLI) | payer MEDICARE, SELFPAY ==
--- NOTE | 2021-01-19 13:30 | PC.NURSE ---
Pt to [facility] amb per self. A&Ox3. Pt has no complaints or concerns. Oriented to room. Call garcia in reach. Reminded to call with needs.
[2021-01-19] MEDS: MALTOSE IVPB (13:42)
[2021-01-19] MEDS: ABATACEPT IVPB (13:42)
[2021-01-19] MEDS: SODIUM CHLORIDE 0.9% IVPB (13:42)
--- NOTE | 2021-01-19 14:17 | PC.NURSE ---
Orencia infusion complete. Pt tolerated well. Pt has no questions or concerns. Next appointment scheduled for 4 weeks. Discharged to home amb per self.
== END 2021-01-19 13:08 | disposition home or self-care (01) ==
LOC: CHSCARD 13:14 → CHSTREATRM 13:33
PROVIDERS: PCP Internal Medicine; Visit Provider Internal Medicine
DX: M05.9 Rheumatoid arthritis with rheumatoid factor, unspecified (principal)
CPT/HCPCS: 96365; J0129

== ENCOUNTER 2021-02-10 00:54 | Day surgery (SDC) | payer MEDICARE, SELFPAY ==
[2021-02-02 11:34] VITALS: BMI 30.7
--- NOTE | 2021-02-02 11:41 | PC.NURSE ---
Report to the Outpatient Waiting Room, entrance under the green pavilion located off [facility], at time 1300__ on date _02/10/21_. OR Time: _1500__. - You and your visitor will be asked a series of questions to screen for COVID 19 for your protection. - A mask is required within the hospital. - Only one visitor is allowed at this time. Patient visitors will be guided where to wait when not with patient. Preoperative COVID Testing Requirements: No COVID Test needed if: (proof is required; if not received patient will have Rapid Test prior to entry) - Patient has received COVID Vaccine at least 14 days prior to procedure date or - Patient has positive COVID test result within last 90 days of surgery date. COVID Test needed if above criteria is not met If not COVID vaccinated a COVID test must be conducted within 72 hours of surgery and patient is asked to isolate self from time of testing until procedure. You will go to the [facility] for your COVID testing. The [facility] site is located at the corner of [address] [facility]. You will only be called if COVID results are positive and your surgeon may reschedule your elective surgery date. Patients may have clear liquids (water, carbonated beverages, clear teas, apple juice) until 3 hours prior to surgery with a maximum of 20 ounces. - No food from midnight until time of surgery - Infants may have breast milk until 4 hours before surgery, formula 6 hours prior to surgery. - Children will be allowed to drink immediately following surgery. If applicable, please bring a bottle or sippy cup to assist with drinking. Juice, water, soda, and popsicles are readily available. For infants on formula, please bring formula the day of surgery. Pacifiers are allowed. Take the following medications with a SIP of water the morning of surgery: __ALPRAZOLAM, SERTRALINE Medications to discontinue per physician __ALL VITAMINS AND SUPPLEMENTS Date to take last dose___02/06/21 Please no make-up, nail turkish, hairspray, perfume, deodorant, or body powder the day of surgery. No jewelry (including any body piercings) or valuables the day of surgery, leave them at home. Please take a shower or bath the night before, or the morning of, surgery with an antibacterial soap. Wear comfortable, loose fitting clothing. Children are encouraged to wear pajamas. - Jewelry must be removed prior to entering the operating room. Rings and piercings that are not removed may be cut off. - The hospital will not accept responsibility for valuables. - Please leave all valuables, including medications, at home the day of surgery. If you are going home after surgery, a licensed tow truck driver must drive you home. - NO public transportation without another adult. - We recommend that an adult stay with you for 24 hours following discharge. - We also recommend that you do not drive, make important decision, drink alcoholic beverages, or take any drugs that were not prescribed by your health care provider for at least 24 hours after your discharge time. For Pediatric surgeries, we recommend two adults accompany the child home (only one inside the building at this time). Follow any additional instructions given to you from your surgeon. Telephone instructions given to __PT___and asked if any additional questions and then verbalized understanding. Patient advised to call surgeon office or pre surgery nurse liaison [phone] if any additional questions.
--- NOTE | 2021-02-09 14:00 | WPDANESEPPF ---
Anes - Initial Pre Proc Eval Procedure: Operation Date: 02/10/21 15:00 Proposed Procedures p Right Hydrocelectomy - Jayden Umana MD Date/Time: 02/09/21 14:00 Surgeon: Jayden Umana MD Pre Op Diagnosis: right hydrocele Patient Data Age: 70 Gender: M Height: 1.8 m Weight: 100 kg Allergies Allergy/AdvReac Type Severity Reaction Status Date / Time banana Allergy Severe Swelling Verified 02/02/21 11:33 of Lip/Tongue/Throat terbinafine Allergy Severe Other Verified 02/02/21 11:33 doxycycline Allergy Swelling Verified 02/02/21 11:33 of Lip/Tongue/Throat methotrexate Allergy ABN Verified 02/02/21 11:33 BRUISING/SKIN TEARS niacin Allergy Difficulty Verified 02/02/21 11:33 Breathing nut - unspecified Allergy Swelling Verified 02/02/21 11:33 of Lip/Tongue/Throat clindamycin AdvReac Severe Gastrointestinal Verified 02/02/21 11:33 Upset, SEVERE DIARRHEA hydrocodone AdvReac Confusion Verified 02/02/21 11:33 zinc AdvReac SEVERE Verified 02/02/21 11:33 Fatigue zolpidem [From Ambien] AdvReac CHEST Verified 02/02/21 11:33 PAIN, SOB, ANXIETY Home Medications Medication Instructions Recorded Confirmed Type alprazolam 2 mg tablet 2 mg PO DAILY 11/22/19 02/02/21 History atorvastatin 10 mg tablet 10 mg PO DAILY 11/22/19 02/02/21 History cyanocobalamin (vitamin B-12) 1,000 mcg PO DAILY 11/22/19 02/02/21 History 1,000 mcg capsule diclofenac sodium 1.5 % topical 1 pkg TOPICAL TID PRN 11/22/19 02/02/21 History drops-menthol 10 % roll-on combo pack losartan 50 mg tablet 100 mg PO QAM 11/22/19 02/02/21 History sertraline 100 mg tablet 50 mg PO QAM 11/22/19 02/02/21 History triamcinolone acetonide 0.1 % 1 applic TOPICAL BID PRN 11/22/19 02/02/21 History topical cream ascorbic acid (vitamin C) 2 g PO DAILY 01/06/21 02/02/21 History cholecalciferol (vitamin D3) 50 mcg PO DAILY 01/06/21 02/02/21 History cyanocobalamin (vitamin B-12) 1,000 mcg PO DAILY 01/06/21 02/02/21 History dextroamphetamine-amphetamine 10 mg PO QAM 01/06/21 02/02/21 History vitamin E 400 unit PO DAILY 01/06/21 02/02/21 History docusate sodium [Colace] 100 mg PO BID #30 cap 01/12/21 02/02/21 Rx Patient hx anesthesia problems: none Family hx anesthesia problems: none Results Review: All pre-operative results and documents have been reviewed as part of the pre-operative evaluation. [facility] Past Medical History Medical History (Updated 02/09/21 @ 14:01 by Rock Colon MD) Anxiety Colon cancer screening Depression Hyperlipidemia Hypertension Nausea & vomiting Neuropathy Obesity (BMI 30-39.9) Rheumatoid arthritis RUQ pain Surgical History Surgical History H/O hernia repair robotic assisted right inguinal hernia repair 01/12/21 History of colonoscopy History of knee surgery Hx laparoscopic cholecystectomy 12/19/2019 Family History Family History Sibling Diabetes mellitus Social History Social History Smoking status: Never smoker Second hand tobacco smoke exposure: No Alcohol intake: former Alcohol use details: STATES SOCIAL DRINKER, QUITE 7 YRS AGO Substance use: never Substance use type: does not use Living arrangements: with family Additional living arrangements comments: SPOUSE Gender identity (if verbalized by the patient): Male Spiritual care concerns: No Anes - Eval Final PreProcedure Day of Procedure 02/09/21 14:00 Patient weight: obese Heart: regular rate and rhythm Lungs: clear to auscultation and normal air movement Airway: Mallampati scale class II Neurological: alert and oriented Last oral intake: >/= 8 hours ASA classification: III Emergent: no Anesthetic plan: proceed Anesthesia type and monitoring: genera
[2021-02-10] VITALS (8 sets, daily range): BP systolic 116–125; BP diastolic 66–78; PULSE 56–85; RESP 12–18; TEMP 36.1; O2SAT 95–100
[2021-02-10] MEDS: LACTATED RINGERS 1,000 ML 30 ML IV CONT ×2 (13:30→16:29)
--- NOTE | 2021-02-10 15:02 | WPDHPUPDATE1 ---
History and Physical Update Update Date/Time: 02/10/21 15:02 History and Physical has been reviewed, including an updated exam of the patient. There are NO changes in the patient's condition. Risks, benefits, and alternatives have been discussed and questions answered. Patient agrees to proceed with procedure. Proceed with right hydrocelectomy
[2021-02-10] MEDS: ceFAZolin 2 GM/D5W 50 ML 2 GM/50 ML BAG IVPB (15:19)
[2021-02-10] MEDS: NEOMYCIN/POLYMYXIN/BACITRACIN OINTMENT 15 GM TUBE 1 APPLIC TOPICAL (15:58)
--- NOTE | 2021-02-10 15:59 | W.PM.PROC2 ---
Procedure Note - Detailed Date of Procedure 02/10/21 Pre-op Diagnosis right hydrocele Post-op Diagnosis other (Right hydrocele, right spermatocele) Procedure Performed Right hydrocelectomy, right spermatocelectomy, right orchiopexy Surgeon Jayden Umana MD Anesthesia general Description of Procedure Patient is taken to the operative suite correctly identified. Once anesthesia was obtained was placed in supine position prepped draped usual sterile fashion. Transverse incision was made over the right hemiscrotum. The testicle was brought out into the operative field. The hydrocele sac was opened and the excess skin was excised. There was no significant amount of fluid there at this time. He does have also a spermatocele which was opened then excised at the tail of the epididymis. We fulgurated the edges. We then placed a quarter-inch [place] drain through a separate stab incision. We then did an orchiopexy using 3-0 Ethibond and secured the testicle in 3 points lateral, medial, and inferiorly. Chromic was used to close the tunica. 3-0 chromic in a running fashion was then used to close the skin. We anesthetized the skin incision using 1% lidocaine. Patient is taken recovery stable condition. He will remove the [place] drain in 2-3 days. Follow-up in 3-4 weeks time. Estimated Blood Loss 10 Drains Yes Packing No Pathology yes Complications No immediate complications Condition stable Disposition PACU
[2021-02-10] MEDS: KETOROLAC 30 MG/ML VIAL (*BKC) IV PUSH (16:31)
[2021-02-10] MEDS: oxyCODONE HCL (*CRX) 5 MG TAB IR PO (17:12)
--- NOTE | 2021-02-10 18:33 | SUR.PHASEII ---
RN added Ultram to patient's allergies so it doesn't get prescribed for him again. Patient states, I can't take Ultram. It is contraindicated with my alprazolam. Patient was given a script for Ultram and Bactrim to go home with. RN called Dr. Umana via cell phone and told him the situation. Dr. Umana said, I have no way of sending in a script electronically from home. Patient will have to discharge home and just use tylenol and ibuprofen tonight and get a script from my office for something else tomorrow. Patient and spouse will still pretty upset at the fact that they discussed this in pre-op with multiple people and were being sent home without pain medicine. RN called Linda at home and told her the situation. Patient compromised and was okay going home with Tylenol #3 to get him through the night. RN called in the Tylenol #3 along with Bactrim, since [facility] is closed at this time, to [facility] on [address] in [place], [place].
--- NOTE | 2021-02-10 18:55 | SUR.PHASEII ---
RN couldn't get ahold of spouse via cell phone. RN tried multiple times and looked for him in waiting room and also the outpatient parking lot. There were no cars in the lot about 1715.
== END 2021-02-10 18:10 | disposition home or self-care (01) ==
PROVIDERS: PCP Internal Medicine; Visit Provider Urology
PROC: (CPT 55040; principal; 2021-02-10 15:00)
DX: N43.3 Hydrocele, unspecified (principal); I10 Essential (primary) hypertension; E78.5 Hyperlipidemia, unspecified; F41.8 Other specified anxiety disorders; G62.9 Polyneuropathy, unspecified; M06.9 Rheumatoid arthritis, unspecified; E66.9 Obesity, unspecified; Z68.29 Body mass index [BMI] 29.0-29.9, adult
CPT/HCPCS: 55040; 54640; 88302; A9270; J0690; J1100; J1885; J2250; J2405; J2704; J3010; J7120

== ENCOUNTER 2021-02-18 12:04 | Outpatient (CLI) | payer MEDICARE, SELFPAY ==
[2021-02-18 12:28] VITALS: BMI 29.9
[2021-02-18 12:29] VITALS: BP 128/72; PULSE 72; RESP 14; TEMP 36.3; O2SAT 99
[2021-02-18] MEDS: SODIUM CHLORIDE 0.9% IVPB (13:05)
[2021-02-18] MEDS: MALTOSE IVPB (13:05)
[2021-02-18] MEDS: ABATACEPT IVPB (13:05)
--- NOTE | 2021-02-18 13:13 | PC.NURSE ---
Patient here for monthly Orencia infusion. Education on med given. No concerns voiced. Orencia infusion administered. SEE MAR. Tolerated well. Safe exit of hospital. Will return 03/16/21 for next month.
== END 2021-02-18 12:05 | disposition home or self-care (01) ==
LOC: CHSTREATRM 12:06
PROVIDERS: PCP Internal Medicine; Visit Provider Internal Medicine
DX: M05.9 Rheumatoid arthritis with rheumatoid factor, unspecified (principal)
CPT/HCPCS: 96365; J0129

== ENCOUNTER 2021-03-16 12:52 | Outpatient (CLI) | payer MEDICARE, SELFPAY ==
[2021-03-16 13:09] VITALS: BMI 30.7
[2021-03-16 13:13] VITALS: BP 128/65; PULSE 74; RESP 14; TEMP 36.1; O2SAT 100
[2021-03-16] MEDS: SODIUM CHLORIDE 0.9% IVPB (13:35)
[2021-03-16] MEDS: MALTOSE IVPB (13:35)
[2021-03-16] MEDS: ABATACEPT IVPB (13:35)
--- NOTE | 2021-03-16 14:19 | PC.NURSE ---
Patient tolerated monthly Orencia infusion well. SEE MAR. Safe exit of hospital.
== END 2021-03-16 12:53 | disposition home or self-care (01) ==
LOC: CHSTREATRM 12:56
PROVIDERS: PCP Internal Medicine; Visit Provider Internal Medicine
DX: M05.9 Rheumatoid arthritis with rheumatoid factor, unspecified (principal)
CPT/HCPCS: 96365; J0129

== ENCOUNTER 2021-04-13 13:33 | Outpatient (CLI) | payer MEDICARE, SELFPAY ==
[2021-04-13 14:05] VITALS: BP 126/74; PULSE 72; RESP 14; TEMP 36.4; O2SAT 99
[2021-04-13] MEDS: ABATACEPT IVPB (14:05)
[2021-04-13] MEDS: SODIUM CHLORIDE 0.9% IVPB (14:05)
[2021-04-13] MEDS: MALTOSE IVPB (14:05)
[2021-04-13 14:13] VITALS: BMI 30.7
--- NOTE | 2021-04-13 16:02 | PC.NURSE ---
Tolerated monthly Orencia IV infusion well. SEE MAR NO concerns voiced. Safe exit of hospital. Will return 2021 at 1100.KJ
== END 2021-04-13 13:34 | disposition home or self-care (01) ==
LOC: CHSTREATRM 13:37
PROVIDERS: PCP Internal Medicine; Visit Provider Internal Medicine
DX: M05.9 Rheumatoid arthritis with rheumatoid factor, unspecified (principal)
CPT/HCPCS: 96365; J0129

== ENCOUNTER 2021-05-07 00:24 | Day surgery (SDC) | payer MEDICARE, SELFPAY ==
[2021-04-28 11:49] VITALS: BMI 31.4
--- NOTE | 2021-04-28 12:02 | PC.NURSE ---
Report to the Outpatient Waiting Room, entrance under the green pavilion located off [facility], at time __1045 on date ___05/07/21____. OR Time: ____1245____. - You will be asked a series of questions to screen for COVID 19 for your protection. - A mask is required within the hospital. - No visitors are allowed at this time. Preoperative COVID Testing Requirements: No COVID Test needed if: (proof is required; if not received patient will have Rapid Test prior to entry) - Patient has received COVID Vaccine at least 14 days prior to procedure date or - Patient has positive COVID test result within last 90 days of surgery date. COVID Test needed if above criteria is not met If not COVID vaccinated a COVID test must be conducted within 72 hours of surgery and patient is asked to isolate self from time of testing until procedure. You will go to the [facility] Testing Site for your COVID testing. The [facility] Testing site is located at the corner of [address] [facility]. You will only be called if COVID results are positive and your surgeon may reschedule your elective surgery date. Patients may have clear liquids (water, carbonated beverages, clear teas, apple juice) until 3 hours prior to surgery with a maximum of 20 ounces. (0945 AM) - No food from midnight until time of surgery - Infants may have breast milk until 4 hours before surgery, infant formula 6 hours prior to surgery. - Children will be allowed to drink immediately following surgery. If applicable, please bring a bottle or sippy cup to assist with drinking. Juice, water, soda, and popsicles are readily available. For infants on formula, please bring formula the day of surgery. Pacifiers are allowed. Take the following medications with a SIP of water the morning of surgery: ____ALPRAZOLAM Medications to discontinue per physician _ALL VITAMINS AND SUPPLEMENTS - 3 DAYS PRIOR TO SURGERY____ Date to take last dose__05/03/21 Please no make-up, nail colombian, hairspray, perfume, deodorant, or body powder the day of surgery. No jewelry (including any body piercings) or valuables the day of surgery, leave them at home. Please take a shower or bath the night before, or the morning of, surgery with an antibacterial soap. Wear comfortable, loose fitting clothing. Children are encouraged to wear pajamas. - Jewelry must be removed prior to entering the operating room. Rings and piercings that are not removed may be cut off. - The hospital will not accept responsibility for valuables. - Please leave all valuables, including medications, at home the day of surgery. If you are going home after surgery, a licensed delivery motorcycle driver must drive you home. - NO public transportation without another adult. - We recommend that an adult stay with you for 24 hours following discharge. - We also recommend that you do not drive, make important decision, drink alcoholic beverages, or take any drugs that were not prescribed by your health care provider for at least 24 hours after your discharge time. For Pediatric surgeries, we recommend two adults accompany the child home (only one inside the building at this time). Follow any additional instructions given to you from your surgeon. Telephone instructions given to ___PT and asked if any additional questions and then verbalized understanding. Patient advised to call surgeon office or pre surgery nurse liaison [phone] if any additional questions.
--- NOTE | 2021-05-07 07:13 | WPDHPUPDATE1 ---
History and Physical Update Update Date/Time: 05/07/21 07:13 History and Physical has been reviewed, including an updated exam of the patient. There are NO changes in the patient's condition. Risks, benefits, and alternatives have been discussed and questions answered. Patient agrees to proceed with procedure.
--- NOTE | 2021-05-07 10:19 | SUR.PREOP ---
1015; CALLED PT TO COME IN EARLY, PT ALREADY DRIVING IN
[2021-05-07 11:07] VITALS: BP 102/60; PULSE 50; RESP 20; TEMP 35.9; O2SAT 100; BMI 30.9
[2021-05-07] MEDS: LACTATED RINGERS 1,000 ML 30 ML IV CONT (11:25)
--- NOTE | 2021-05-07 12:15 | WPDANESEPPF ---
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 Patient Data Age: 71 Gender: M Height: 1.8 m Weight: 100.4 kg Last Vital Signs Temp 35.9 C L 05/07/21 11:07 Pulse 50 L 05/07/21 11:07 Resp 20 05/07/21 11:07 BP 102/60 05/07/21 11:07 Pulse Ox 100 05/07/21 11:07 Allergies Allergy/AdvReac Type Severity Reaction Status Date / Time banana Allergy Severe Swelling Verified 05/07/21 10:55 of Lip/Tongue/Throat doxycycline Allergy Severe Swelling Verified 05/07/21 10:55 of Lip/Tongue/Throat niacin Allergy Severe Difficulty Verified 05/07/21 10:55 Breathing nut - unspecified Allergy Severe Swelling Verified 05/07/21 10:55 of Lip/Tongue/Throat terbinafine Allergy Severe Other Verified 05/07/21 10:55 methotrexate Allergy Intermediate ABN Verified 05/07/21 10:55 BRUISING/SKIN TEARS clindamycin AdvReac Severe Gastrointestinal Verified 05/07/21 10:55 Upset, SEVERE DIARRHEA gabapentin AdvReac Intermediate Hallucinati Verified 05/07/21 10:55 ng hydrocodone AdvReac Intermediate Confusion Verified 05/07/21 10:55 zinc AdvReac Intermediate SEVERE Verified 05/07/21 10:55 Fatigue zolpidem [From Ambien] AdvReac Intermediate CHEST Verified 05/07/21 10:55 PAIN, SOB, ANXIETY tramadol [From Ultram] AdvReac Unknown Other- SEE Verified 05/07/21 10:55 COMMENT fentanyl AdvReac Hallucinati Verified 05/07/21 10:55 ng Home Medications Medication Instructions Recorded Confirmed Type alprazolam 2 mg tablet 2 mg PO TID PRN 11/22/19 05/07/21 History atorvastatin 10 mg tablet 10 mg PO DAILY 11/22/19 05/07/21 History cyanocobalamin (vitamin B-12) 1,000 mcg PO DAILY 11/22/19 05/07/21 History 1,000 mcg capsule losartan 50 mg tablet 100 mg PO QAM 11/22/19 05/07/21 History sertraline 100 mg tablet 50 mg PO QAM 11/22/19 05/07/21 History triamcinolone acetonide 0.1 % 1 applic TOPICAL BID PRN 11/22/19 05/07/21 History topical cream ascorbic acid (vitamin C) 2 g PO DAILY 01/06/21 05/07/21 History cholecalciferol (vitamin D3) 50 mcg PO DAILY 01/06/21 05/07/21 History vitamin E 400 unit PO DAILY 01/06/21 05/07/21 History docusate sodium [Colace] 100 mg PO BID PRN 04/28/21 05/07/21 History Patient hx anesthesia problems: none Family hx anesthesia problems: none Results Review: All pre-operative results and documents have been reviewed as part of the pre-operative evaluation. [facility] Past Medical History Medical History (Updated 02/09/21 @ 14:01 by Rock Colon MD) Anxiety Colon cancer screening Depression Hyperlipidemia Hypertension Nausea & vomiting Neuropathy Obesity (BMI 30-39.9) Rheumatoid arthritis RUQ pain Surgical History Surgical History H/O hernia repair robotic assisted right inguinal hernia repair 01/12/21 History of colonoscopy History of knee surgery Hx laparoscopic cholecystectomy 12/19/2019 Family History Family History Sibling Diabetes mellitus Social History Social History Smoking status: Never smoker Second hand tobacco smoke exposure: No Alcohol intake: never Alcohol use details: STATES SOCIAL DRINKER- QUIT 2015 Substance use: never Substance use type: does not use Living arrangements: with family Additional living arrangements comments: SPOUSE Gender identity (if verbalized by the patient): Male Sexual Orientation (if Verbalized by the Patient): Lesbian, [place], or Homosexual Spiritual care concerns: No Anes
[2021-05-07] MEDS: BACITRACIN ZINC OINTMENT 0.9 GRAM PACKET 1 PACKET TOPICAL (13:30)
[2021-05-07 14:51] VITALS: BP 120/76; PULSE 82; RESP 16; O2SAT 98
--- NOTE | 2021-05-07 15:08 | W.PM.PROC2 ---
Procedure Note - Detailed Date of Procedure 05/07/21 Pre-op Diagnosis squamous cell carcinoma left central cheek Post-op Diagnosis same Procedure Performed 3 cm excision of squamous cell carcinoma of the left central cheek with frozen section and intermediate repair 9 cm Surgeon Stephan Forman MD Anesthesia MAC Findings Squamous cell carcinoma with free margins Description of Procedure The ulcerated site on the patient's left cheek was marked in the holding area. He was then taken to the operating room and placed supine on the operating table. Was given IV sedation with an LMA and the left face was prepped and draped in usual fashion. The site was carefully examined for skin marking an approximate 1 cm margin was taken around the ulcerated mass. The mass did not appear to extend beyond that by palpation. The area was widely infiltrated with 1% lidocaine with epinephrine. The full-thickness skin excision was carried out well into the subcutaneous tissue. This extended into some superficial muscle and the very center. The dissection was done carefully starting from the posterior aspect and advancing anteriorly looking for branches of the facial nerve. None were seen. The specimen was marked for the 12 o'clock point with a nylon suture which is oriented to the left oral commissure. The specimen sent to pathology. The pathologist reports squamous cell carcinoma with margins free. The wound on required some undermining approximately 1 cm and all directions. This allowed placement and slight advancement of the skin edges to approximate this wound. Standing cones were removed at both ends and the skin was closed with a running 5 0 nylon. No bandage was applied. Estimated Blood Loss -10.0 Drains No Packing No Pathology yes Complications No immediate complications Condition stable Disposition same day
[2021-05-07 15:20] VITALS: BP 107/64; PULSE 61; RESP 16
[2021-05-07 15:48] VITALS: BP 105/60; PULSE 54; RESP 16
== END 2021-05-07 15:59 | disposition home or self-care (01) ==
PROVIDERS: PCP Internal Medicine; Visit Provider Plastic Surgery
PROC: (CPT 11643; principal; 2021-05-07 12:45)
DX: C44.329 Squamous cell carcinoma of skin of other parts of face (principal); F41.8 Other specified anxiety disorders; E78.5 Hyperlipidemia, unspecified; I10 Essential (primary) hypertension; G62.9 Polyneuropathy, unspecified; M06.9 Rheumatoid arthritis, unspecified; E66.9 Obesity, unspecified; Z68.30 Body mass index [BMI] 30.0-30.9, adult
CPT/HCPCS: 11643; 12054; 88305; 88331; 88332; A9270; J2250; J2370; J2704; J3010; J7120

== ENCOUNTER 2021-05-15 12:56 | Outpatient (CLI) | payer MEDICARE, SELFPAY ==
[2021-05-15 13:04] VITALS: BMI 30.7
[2021-05-15 13:18] VITALS: BP 128/71; PULSE 68; RESP 14; TEMP 36.4; O2SAT 97
[2021-05-15] MEDS: MALTOSE IVPB (13:33)
[2021-05-15] MEDS: SODIUM CHLORIDE 0.9% IVPB (13:33)
[2021-05-15] MEDS: ABATACEPT IVPB (13:33)
--- NOTE | 2021-05-15 13:46 | PC.NURSE ---
Patient here for monthly Orencia infusion. No concerns voiced. Orencia administered see MAY. Tolerated it well. Safe exit of hospital. Will return June 12, 2021 at 1300.
== END 2021-05-15 12:57 | disposition home or self-care (01) ==
PROVIDERS: PCP Internal Medicine; Visit Provider Internal Medicine
DX: M05.9 Rheumatoid arthritis with rheumatoid factor, unspecified (principal)
CPT/HCPCS: 96365; 96366; J0129

== ENCOUNTER 2021-06-12 12:56 | Outpatient (CLI) | payer MEDICARE, SELFPAY ==
[2021-06-12 13:10] VITALS: BMI 33.7
[2021-06-12 13:11] VITALS: BP 136/77; PULSE 74; RESP 14; TEMP 36; O2SAT 98
[2021-06-12] MEDS: MALTOSE IVPB (13:30)
[2021-06-12] MEDS: ABATACEPT IVPB (13:30)
[2021-06-12] MEDS: SODIUM CHLORIDE 0.9% IVPB (13:30)
--- NOTE | 2021-06-12 13:59 | PC.NURSE ---
Patient here for monthly IV Orencia for RA. No concerns voiced. IV Orencia administered. SEE MAR. Tolerated well. Safe exit of hospital. Will return July 09, 2021.
== END 2021-06-12 12:57 | disposition home or self-care (01) ==
LOC: CHSTREATRM 13:00
PROVIDERS: PCP Internal Medicine; Visit Provider Internal Medicine
DX: M05.9 Rheumatoid arthritis with rheumatoid factor, unspecified (principal)
CPT/HCPCS: 96365; J0129

== ENCOUNTER 2021-07-10 12:58 | Outpatient (CLI) | payer MEDICARE, SELFPAY ==
[2021-07-10 13:05] VITALS: BMI 33.7
[2021-07-10 13:16] VITALS: BP 126/77; PULSE 78; RESP 14; TEMP 36.5; O2SAT 98
[2021-07-10] MEDS: SODIUM CHLORIDE 0.9% IVPB (13:45)
[2021-07-10] MEDS: ABATACEPT IVPB (13:45)
[2021-07-10] MEDS: MALTOSE IVPB (13:45)
--- NOTE | 2021-07-10 14:30 | PC.NURSE ---
Patient here for monthly Orencia IV infusion. No concerns voiced. IV Orencia administered. SEE MAR. Tolerated well. Safe exit of hospital. Will return August 07, 2021 at 1300 for next infusion.
== END 2021-07-10 12:59 | disposition home or self-care (01) ==
LOC: CHSTREATRM 13:01
PROVIDERS: PCP Internal Medicine; Visit Provider Internal Medicine
DX: M05.9 Rheumatoid arthritis with rheumatoid factor, unspecified (principal)
CPT/HCPCS: 96365; J0129

== ENCOUNTER 2021-08-07 12:58 | Outpatient (CLI) | payer MEDICARE, SELFPAY ==
[2021-08-07 13:05] VITALS: BMI 31.8
[2021-08-07 13:06] VITALS: BP 125/60; PULSE 72; RESP 16; TEMP 36.3; O2SAT 97
[2021-08-07] MEDS: SODIUM CHLORIDE 0.9% IVPB (13:30)
[2021-08-07] MEDS: ABATACEPT IVPB (13:30)
[2021-08-07] MEDS: MALTOSE IVPB (13:30)
--- NOTE | 2021-08-07 14:03 | PC.NURSE ---
Patient here for monthly IV Orencia infusion. No concerns voiced. IV Orencia administered. See MAR. Tolerated well. Safe exit of hospital. Will return September 04, 2021 at 1 pm.
== END 2021-08-07 12:59 | disposition home or self-care (01) ==
PROVIDERS: PCP Internal Medicine; Visit Provider Internal Medicine
DX: M05.9 Rheumatoid arthritis with rheumatoid factor, unspecified (principal)
CPT/HCPCS: 96365; J0129

== ENCOUNTER 2021-09-04 10:11 | Outpatient (CLI) | payer MEDICARE, SELFPAY ==
[2021-09-04 10:30] VITALS: BMI 31.8
[2021-09-04 10:31] VITALS: BP 136/75; PULSE 72; RESP 14; TEMP 36.4; O2SAT 97
[2021-09-04] MEDS: MALTOSE IVPB (10:55)
[2021-09-04] MEDS: ABATACEPT IVPB (10:55)
[2021-09-04] MEDS: SODIUM CHLORIDE 0.9% IVPB (10:55)
--- NOTE | 2021-09-04 11:26 | PC.NURSE ---
Patient here for monthly IV Orencia for his RA. No concerns voiced. IV Orencia administered-SEE MAR. Tolerated well. Safe exit of hospital. Will return September 29, 2020 at 1330.
== END 2021-09-04 10:12 | disposition home or self-care (01) ==
LOC: CHSTREATRM 10:15
PROVIDERS: PCP Internal Medicine; Visit Provider Internal Medicine
DX: M05.9 Rheumatoid arthritis with rheumatoid factor, unspecified (principal)
CPT/HCPCS: 96365; J0129

== ENCOUNTER 2021-10-02 13:04 | Outpatient (CLI) | payer MEDICARE, SELFPAY ==
[2021-10-02] MEDS: MALTOSE IVPB (13:30)
[2021-10-02] MEDS: ABATACEPT IVPB (13:30)
[2021-10-02] MEDS: SODIUM CHLORIDE 0.9% IVPB (13:30)
[2021-10-02 13:34] VITALS: BP 125/63; PULSE 72; RESP 14; TEMP 36.6; O2SAT 97
[2021-10-02 14:26] VITALS: BMI 31.8
--- NOTE | 2021-10-02 14:27 | PC.NURSE ---
Patient here for monthly Orencia IV infusion. No concerns voiced. IV Orencia administered. SEE MAR. Tolerated well. Safe exit of hospital. Will return next month 2019 1330.
== END 2021-10-02 13:05 | disposition home or self-care (01) ==
PROVIDERS: PCP Internal Medicine
DX: M05.9 Rheumatoid arthritis with rheumatoid factor, unspecified (principal)
CPT/HCPCS: 96365; J0129

== ENCOUNTER 2021-10-30 12:49 | Outpatient (CLI) | payer MEDICARE, SELFPAY ==
[2021-10-30 12:58] VITALS: BMI 31.8
[2021-10-30 13:20] VITALS: BP 127/47; PULSE 72; RESP 14; TEMP 36.7; O2SAT 98
[2021-10-30] MEDS: MALTOSE IVPB (13:20)
[2021-10-30] MEDS: SODIUM CHLORIDE 0.9% IVPB (13:20)
[2021-10-30] MEDS: ABATACEPT IVPB (13:20)
--- NOTE | 2021-10-30 13:43 | PC.NURSE ---
Patient here for monthly IV Orencia. Education given. No concerns voiced. IV Orencia administered. Tolerated well. Safe exit of hospital. Will return November [id number] 1300.
== END 2021-10-30 12:50 | disposition home or self-care (01) ==
PROVIDERS: PCP Internal Medicine
DX: M05.9 Rheumatoid arthritis with rheumatoid factor, unspecified (principal)
CPT/HCPCS: 96365; J0129

== ENCOUNTER 2021-11-27 12:56 | Outpatient (CLI) | payer MEDICARE, SELFPAY ==
[2021-11-27 13:02] VITALS: BMI 31.6
[2021-11-27] MEDS: MALTOSE IVPB (13:15)
[2021-11-27] MEDS: ABATACEPT IVPB (13:15)
[2021-11-27] MEDS: SODIUM CHLORIDE 0.9% IVPB (13:15)
[2021-11-27 13:18] VITALS: BP 126/74; PULSE 78; RESP 14; O2SAT 97
--- NOTE | 2021-11-27 13:59 | PC.NURSE ---
Here for monthly IV Orencia infusion. No concerns voiced. IV Orencia administered-SEE MAR. Tolerated well. Safe exit of hospital. Will return 12/25/21 at 1300 for next month's.
== END 2021-11-27 12:57 | disposition home or self-care (01) ==
PROVIDERS: PCP Internal Medicine; Visit Provider Internal Medicine
DX: M05.9 Rheumatoid arthritis with rheumatoid factor, unspecified (principal)
CPT/HCPCS: 96365; J0129

== ENCOUNTER 2021-12-22 14:38 | Outpatient (CLI) | payer MEDICARE, SELFPAY ==
[2021-12-22 15:46] LABS: Influenza A QL RT-PCR Negative (Negative); Influenza B QL RT-PCR Negative (Negative); SARS-CoV-2 RNA PCR Positive (Negative)
== END 2021-12-22 14:39 | disposition home or self-care (01) ==
LOC: CHSLAB 14:41
PROVIDERS: PCP Internal Medicine; Visit Provider Nurse Practitioner Family
DX: U07.1 COVID-19 (principal); J06.9 Acute upper respiratory infection, unspecified
CPT/HCPCS: 87502; C9803; U0003; U0005

== ENCOUNTER 2021-12-29 12:48 | Outpatient (CLI) | payer MEDICARE, SELFPAY ==
[2021-12-29 12:55] VITALS: BMI 31.6
[2021-12-29 13:05] VITALS: BP 104/64; PULSE 64; RESP 14; TEMP 36.6; O2SAT 97
[2021-12-29] MEDS: ABATACEPT IVPB (13:15)
[2021-12-29] MEDS: MALTOSE IVPB (13:15)
[2021-12-29] MEDS: SODIUM CHLORIDE 0.9% IVPB (13:15)
--- NOTE | 2021-12-29 13:59 | PC.NURSE ---
Patient here for monthly IV Orencia. No concerns voiced. States, I'm feeling better since I just recently had covid. IV Orencia administered. See MAR. Tolerated well. Will return January 22, 2022 at 1300.
== END 2021-12-29 12:49 | disposition home or self-care (01) ==
PROVIDERS: PCP Internal Medicine
DX: M06.09 Rheumatoid arthritis without rheumatoid factor, multiple sites (principal)
CPT/HCPCS: 96365; 96366; J0129

== ENCOUNTER 2022-01-27 12:53 | Outpatient (CLI) | payer MEDICARE, SELFPAY ==
[2022-01-27 13:03] VITALS: BMI 31.6
[2022-01-27] MEDS: ABATACEPT IVPB (13:25)
[2022-01-27] MEDS: MALTOSE IVPB (13:25)
[2022-01-27] MEDS: SODIUM CHLORIDE 0.9% IVPB (13:25)
[2022-01-27 14:05] VITALS: BP 126/70; PULSE 68; RESP 14; TEMP 36.6; O2SAT 98
--- NOTE | 2022-01-27 14:06 | PC.NURSE ---
Patient here for monthly IV Orencia infusion. Voices no concerns. IV Orencia administered. SEE MAR. Tolerated well. Safe exit of hospital. Will return next month 2021 1300.
== END 2022-01-27 12:54 | disposition home or self-care (01) ==
PROVIDERS: PCP Internal Medicine
DX: M06.09 Rheumatoid arthritis without rheumatoid factor, multiple sites (principal)
CPT/HCPCS: 96365; J0129

== ENCOUNTER 2022-02-23 12:45 | Outpatient (CLI) | payer MEDICARE, SELFPAY ==
--- NOTE | ~2022-02-23 | XR_ITS ---
EXAMINATION: XR lg joint inject/asp w image DATE: 02/23/2022 13:44 INDICATION: Right-sided sacroiliac arthritis. Low back pain. TECHNIQUE: A time-out was performed to verify the patient's name, date of , and procedure to b e performed. The procedure including the risks, benefits, and alternatives was discussed with the pat ient. Risks discussed included bleeding and infection. The patient understood the risks and agreed to proceed. The skin overlying the right sacroiliac joint was prepped and draped in usual sterile fas ion. Anesthetic was administered with 1% lidocaine subcutaneously. A 22 G needle was advanced under fluoroscopic guidance into the joint. Subsequently, injectate consisting of 5 mL 1% lidocaine, 1 mL 40 mg/mL dexamethasone, and 1 mL 40 mg/mL Kenalog was instilled. The needle was removed and the ent ry site was cleaned and dressed. There were no immediate complications. Fluoroscopy exposure time wa s 0.1 minutes. The total number of images was 2. FINDINGS: Real-time fluoroscopy demonstrates the needle in the right sacroiliac joint. Patient's pain prior to procedure:9/10. Patient's pain following the procedure: 0/10. IMPRESSION: 1. Fluoroscopy guided right sacroiliac joint injection of local anesthetic and steroid with decrease in the patient's presenting pain. Reviewed, dictated and finalized at location A. LESS STORE MANAGER
== END 2022-02-23 12:46 | disposition home or self-care (01) ==
PROVIDERS: PCP Internal Medicine; Visit Provider Internal Medicine
DX: M54.50 Low back pain, unspecified (principal); M47.898 Other spondylosis, sacral and sacrococcygeal region
CPT/HCPCS: 20610; 77002; 99212; G0463; J1100; J3301

== ENCOUNTER 2022-02-24 13:37 | Outpatient (CLI) | payer MEDICARE, SELFPAY ==
[2022-02-24 13:44] VITALS: BMI 31.6
[2022-02-24 13:58] VITALS: BP 130/72; PULSE 72; RESP 14; TEMP 36.4; O2SAT 98
[2022-02-24] MEDS: SODIUM CHLORIDE 0.9% IVPB (14:10)
[2022-02-24] MEDS: MALTOSE IVPB (14:10)
[2022-02-24] MEDS: ABATACEPT IVPB (14:10)
--- NOTE | 2022-02-24 14:28 | PC.NURSE ---
Patient here for monthly Orencia IV infusion. No concerns voiced. IV Orencia administered. SEE MAR. Tolerated well. Safe exit of hospital. Will return Feb 24, 2022 at 1300.
== END 2022-02-24 13:38 | disposition home or self-care (01) ==
LOC: CHSTREATRM 13:40
PROVIDERS: PCP Internal Medicine
DX: M06.09 Rheumatoid arthritis without rheumatoid factor, multiple sites (principal)
CPT/HCPCS: 96365; J0129

== ENCOUNTER 2022-03-24 12:57 | Outpatient (CLI) | payer MEDICARE, SELFPAY ==
[2022-03-24 13:10] VITALS: BMI 31.6
[2022-03-24 13:21] VITALS: BP 104/62; PULSE 72; RESP 14; TEMP 36.4; O2SAT 98
[2022-03-24] MEDS: ABATACEPT IVPB (13:40)
[2022-03-24] MEDS: SODIUM CHLORIDE 0.9% IVPB (13:40)
[2022-03-24] MEDS: MALTOSE IVPB (13:40)
--- NOTE | 2022-03-24 14:12 | PC.NURSE ---
Patient here for monthly Orencia IV infusion. No concerns voiced. IV Oriencia administered. Tolerated well. Safe exit of hospital. Will return 04/21/21 at 1330.
== END 2022-03-24 12:58 | disposition home or self-care (01) ==
PROVIDERS: PCP Internal Medicine
DX: M06.09 Rheumatoid arthritis without rheumatoid factor, multiple sites (principal)
CPT/HCPCS: 96365; J0129

== ENCOUNTER 2022-04-21 13:01 | Outpatient (CLI) | payer MEDICARE, SELFPAY ==
[2022-04-21 13:12] VITALS: BMI 31.6
[2022-04-21] MEDS: MALTOSE IVPB (13:50)
[2022-04-21] MEDS: SODIUM CHLORIDE 0.9% IVPB (13:50)
[2022-04-21] MEDS: ABATACEPT IVPB (13:50)
[2022-04-21 14:34] VITALS: BP 116/63; PULSE 68; RESP 14; O2SAT 99
--- NOTE | 2022-04-21 14:34 | PC.NURSE ---
Patient here for monthly IV Orencia infusion. Education given. No concerns voiced. IV Orencia administered. SEE MAR. Tolerated well. Safe exit of hospital. Will return 05/19/22 at 1300.
== END 2022-04-21 13:02 | disposition home or self-care (01) ==
PROVIDERS: PCP Internal Medicine
DX: M06.09 Rheumatoid arthritis without rheumatoid factor, multiple sites (principal)
CPT/HCPCS: 96365; J0129

== ENCOUNTER 2022-04-26 08:47 | Outpatient (CLI) | payer MEDICARE, SELFPAY ==
--- NOTE | ~2022-04-26 | US_ITS ---
EXAMINATION: US retroperitoneal comp DATE: 04/26/2022 09:35 INDICATION: Chronic kidney disease TECHNIQUE: Multiple ultrasound grayscale images of the kidneys were obtained. COMPARISON: CT abdomen pelvis dated 06/24/2020 FINDINGS: The right kidney measures 8.9 x 5.6 x 5.0 cm. The left kidney measures 10.7 x 5.5 x 4.7 cm. The kidne ys demonstrate normal echogenicity. There is no hydronephrosis in either kidney. No stones identifie d. The bladder is normal with bilateral ureteral jets visualized with color Doppler. The calculated p revoid bladder volume of 265 mm and no significant postvoid residual with calculated postvoid bladder volume of 17 mL. IMPRESSION: 1. Normal kidneys without hydronephrosis. Reviewed, dictated and finalized at location A. E SHIFTER
== END 2022-04-26 08:48 | disposition home or self-care (01) ==
LOC: CHSIMG 08:49
PROVIDERS: PCP Internal Medicine; Visit Provider Internal Medicine
DX: I12.9 Hypertensive chronic kidney disease with stage 1 through stage 4 chronic kidney disease, or unspecified chronic kidney disease (principal)
CPT/HCPCS: 76770

== ENCOUNTER 2022-05-19 12:28 | Outpatient (CLI) | payer MEDICARE, SELFPAY ==
[2022-05-19 13:00] VITALS: BMI 32.6
[2022-05-19] MEDS: SODIUM CHLORIDE 0.9% IVPB (13:00)
[2022-05-19] MEDS: MALTOSE IVPB (13:00)
[2022-05-19] MEDS: ABATACEPT IVPB (13:00)
[2022-05-19 13:31] VITALS: BP 128/70; PULSE 78; RESP 16; TEMP 36.3; O2SAT 98
--- NOTE | 2022-05-19 13:43 | PC.NURSE ---
Patient here for monthly Orencia infusion. No concerns voiced. Orencia infusion administered see MAY. Tolerated well. Will return 06/16/22 at 1300. [facility].
== END 2022-05-19 12:29 | disposition home or self-care (01) ==
PROVIDERS: PCP Internal Medicine
DX: M06.09 Rheumatoid arthritis without rheumatoid factor, multiple sites (principal)
CPT/HCPCS: 96365; J0129

== ENCOUNTER 2022-06-16 12:29 | Outpatient (CLI) | payer MEDICARE, SELFPAY ==
[2022-06-16 12:57] VITALS: BP 111/73; PULSE 72; RESP 14; TEMP 36.6; O2SAT 97
[2022-06-16 13:01] VITALS: BMI 32.6
[2022-06-16] MEDS: SODIUM CHLORIDE 0.9% IVPB (13:15)
[2022-06-16] MEDS: MALTOSE IVPB (13:15)
[2022-06-16] MEDS: ABATACEPT IVPB (13:15)
--- NOTE | 2022-06-16 13:48 | PC.NURSE ---
Patient here for monthly Orencia infusion. No concerns voiced. IV Orencia administered. SEE MAR. Tolerated well. Safe exit of hospital. Will return June at 1300.
== END 2022-06-16 12:30 | disposition home or self-care (01) ==
LOC: CHSTREATRM 12:32
PROVIDERS: PCP Internal Medicine
DX: M06.09 Rheumatoid arthritis without rheumatoid factor, multiple sites (principal)
CPT/HCPCS: 96365; J0129

== ENCOUNTER 2022-07-14 12:54 | Outpatient (CLI) | payer MEDICARE, SELFPAY ==
[2022-07-14 13:02] VITALS: BMI 32.6
[2022-07-14] MEDS: ABATACEPT IVPB (13:20)
[2022-07-14] MEDS: SODIUM CHLORIDE 0.9% IVPB (13:20)
[2022-07-14] MEDS: MALTOSE IVPB (13:20)
[2022-07-14 13:35] VITALS: BP 99/58; PULSE 56; RESP 14; TEMP 36.4; O2SAT 98
--- NOTE | 2022-07-14 14:07 | PC.NURSE ---
Patient here for monthly Orencia IV infusion. Reports RA has been really acting up last few weeks. No concerns voiced. IV Orencia administered. SEE MAR. Tolerated well Safe exit of hospital. Will return 08/11/22 at 1300.
== END 2022-07-14 12:55 | disposition home or self-care (01) ==
LOC: CHSTREATRM 12:58
PROVIDERS: PCP Internal Medicine
DX: M06.09 Rheumatoid arthritis without rheumatoid factor, multiple sites (principal)
CPT/HCPCS: 96365; J0129

== ENCOUNTER 2022-08-11 12:33 | Outpatient (CLI) | payer MEDICARE, SELFPAY ==
[2022-08-11 13:03] VITALS: BP 121/69; PULSE 72; RESP 14; TEMP 36.6; O2SAT 99; BMI 32.5
[2022-08-11] MEDS: ABATACEPT IVPB (13:05)
[2022-08-11] MEDS: SODIUM CHLORIDE 0.9% IVPB (13:05)
[2022-08-11] MEDS: MALTOSE IVPB (13:05)
--- NOTE | 2022-08-11 13:46 | PC.NURSE ---
Patient here for monthly IV Orencia infusion. No concerns voiced. IV Orencia infusion administered. SEE MAR. tolerated well. Will return 09/08/22 for next month's infusion. Safe exit of hospital per ambulatory per self.
== END 2022-08-11 12:34 | disposition home or self-care (01) ==
LOC: CHSTREATRM 12:43
PROVIDERS: PCP Internal Medicine; Visit Provider Internal Medicine Rheumatology
DX: M06.09 Rheumatoid arthritis without rheumatoid factor, multiple sites (principal)
CPT/HCPCS: 96365; J0129

== ENCOUNTER 2022-09-08 12:41 | Outpatient (CLI) | payer MEDICARE, SELFPAY ==
[2022-09-08] MEDS: SODIUM CHLORIDE 0.9% IVPB (13:20)
[2022-09-08] MEDS: ABATACEPT IVPB (13:20)
[2022-09-08] MEDS: MALTOSE IVPB (13:20)
--- NOTE | 2022-09-09 09:10 | PC.NURSE ---
09/08/22 1300 Patient here for monthly IV Orencia infusion. Education given. No concerns voiced. [facility] see scan images.
== END 2022-09-08 12:42 | disposition home or self-care (01) ==
LOC: CHSTREATRM 18:06
PROVIDERS: PCP Internal Medicine; Visit Provider Internal Medicine Rheumatology
DX: M06.09 Rheumatoid arthritis without rheumatoid factor, multiple sites (principal)
CPT/HCPCS: 96365; J0129

== ENCOUNTER 2022-10-06 12:43 | Outpatient (CLI) | payer MEDICARE, SELFPAY ==
[2022-10-06 11:02] VITALS: BMI 32.5
[2022-10-06] MEDS: MALTOSE IVPB (12:50)
[2022-10-06] MEDS: SODIUM CHLORIDE 0.9% IVPB (12:50)
[2022-10-06] MEDS: ABATACEPT IVPB (12:50)
[2022-10-06 13:23] VITALS: BP 129/67; PULSE 80; RESP 14; TEMP 36.4; O2SAT 98
--- NOTE | 2022-10-06 13:24 | PC.NURSE ---
Patient here for monthly Orencia infusion. Education given. No concerns voiced. IV Orencia administered. SEE MAR. Tolerated well. Safe exit of hospital. Will return 11/03/2020 at 1300.
== END 2022-10-06 12:44 | disposition home or self-care (01) ==
LOC: CHSTREATRM 12:45
PROVIDERS: PCP Internal Medicine; Visit Provider Internal Medicine Rheumatology
DX: M06.09 Rheumatoid arthritis without rheumatoid factor, multiple sites (principal)
CPT/HCPCS: 96365; J0129

== ENCOUNTER 2022-10-21 10:39 | Outpatient (CLI) | payer MEDICARE, SELFPAY ==
[2022-10-21 11:15] LABS: Albumin Level 4.5 g/dL (3.5-5.1); Anion Gap 6 mmol/L (8-16); Blood Urea Nitrogen 20 mg/dL (9-20); Calcium 9.1 mg/dL (8.4-10.2); Carbon Dioxide 32 mmol/L (22-30); Chloride 96 mmol/L (98-107); Estimated Glomerular Filt Rate 43; Glucose 86 mg/dL (65-110); Phosphorus 4.1 mg/dL (2.5-4.5); Potassium 4.8 mmol/L (3.4-5.0); Sodium 134 mmol/L (137-145)
[2022-10-21 11:23] LABS: Complement C3 99 mg/dL (88-165)
[2022-10-21 13:04] LABS: Creatinine Urine 53.8 mg/dL; Total Protein Urine Random 6 mg/dL; Ur Ttl Prot Creatinine Ratio 0.11 mg/mg (0-0.20)
[2022-10-25 15:08] LABS: Albumin 4.2 g/dL (3.8-4.8); Alpha 1 Globulin 0.3 g/dL (0.2-0.3); Alpha 2 Globulin 0.7 g/dL (0.5-0.9); Beta 1 Globulin 0.5 g/dL (0.4-0.6); Gamma Globulin 0.6 g/dL (0.8-1.7); Interpretation Consistent with; Protein, Total 6.4 g/dL (6.1-8.1)
[2022-10-28 20:16] LABS: Creatinine, Random Urine 54 mg/dL (20-320)
[2022-10-30 20:25] LABS: ANCA Screen Negative (Negative)
[2022-10-31 18:20] LABS: Anti Glomerular Basement Memb <1.0 AI (<1.0)
== END 2022-10-21 10:40 | disposition home or self-care (01) ==
PROVIDERS: PCP Internal Medicine; Visit Provider Internal Medicine Nephrology
DX: N18.31 Chronic kidney disease, stage 3a (principal); I10 Essential (primary) hypertension
CPT/HCPCS: 36415; 80069; 82570; 83520; 84155; 84156; 84165; 84166; 86036; 86038; 86160; 86225

== ENCOUNTER 2022-11-03 12:47 | Outpatient (CLI) | payer MEDICARE, SELFPAY ==
[2022-11-03] MEDS: MALTOSE IVPB (13:15)
[2022-11-03] MEDS: ABATACEPT IVPB (13:15)
[2022-11-03] MEDS: SODIUM CHLORIDE 0.9% IVPB (13:15)
[2022-11-03 13:16] VITALS: BMI 32.3
[2022-11-03 13:17] VITALS: BP 107/64; PULSE 68; RESP 14; TEMP 36.7; O2SAT 98
--- NOTE | 2022-11-03 13:46 | PC.NURSE ---
Patient here for monthly Orencia infusion. No concerns voiced. Orencia administered. SEE MAR. Tolerated well. Safe exit of hospital. Will return 10/31/22 at 1300.
== END 2022-11-03 12:48 | disposition home or self-care (01) ==
LOC: CHSTREATRM 12:49
PROVIDERS: PCP Internal Medicine; Visit Provider Internal Medicine Rheumatology
DX: M06.09 Rheumatoid arthritis without rheumatoid factor, multiple sites (principal)
CPT/HCPCS: 96365; J0129

== ENCOUNTER 2022-11-09 10:00 | Outpatient (CLI) | payer MEDICARE, SELFPAY ==
--- NOTE | ~2022-11-09 | XR_ITS ---
EXAMINATION: XR sacroiliac jt inj w imag BI DATE: 11/09/2022 11:32 INDICATION: Low back pain. Sacroiliac osteoarthritis. TECHNIQUE: A time-out was performed to verify the patient's name, date of , and procedure to b e performed. The procedure including the risks, benefits, and alternatives was discussed with the pat ient. Risks discussed included bleeding, allergic reaction and infection. The patient understood the risks and agreed to proceed. The skin overlying the bilateral sacroiliac joints was prepped and drap ed in usual sterile fashion. Anesthetic was administered with 1% lidocaine subcutaneously. A 22 G n eedle was advanced under fluoroscopic guidance into first the right sacroiliac joint. Injection of 1 mL of Omnipaque 240 confirmed intra-articular position of the needle. Subsequently, injectate consi sting of 5 mm a 3:1:1 mixture of 1% lidocaine: 4 mg/mL dexamethasone: 40 mg/mL Kenalog for a total do usha of 4 mg dexamethasone and 40 mg dexamethasone was instilled. The needle was removed and attentio n turned to the left sacroiliac joint. A 22 G needle was advanced under fluoroscopic guidance into the left sacroiliac joint. Injection of 1 mL of Omnipaque 240 confirmed intra-articular position of the needle. Subsequently, injectate cons isting of 5 mm a 3:1:1 mixture of 1% lidocaine: 4 mg/mL dexamethasone: 40 mg/mL Kenalog for a total d quileute of 4 mg dexamethasone and 40 mg dexamethasone was instilled. The needle was removed. Bandages w ere applied to both a Olivares sides. There were no immediate complications. Fluoroscopy exposure time was 1.1 minutes. The total number of images was 3. FINDINGS: Real-time fluoroscopy demonstrates the needle in the right sacroiliac joint and subsequentl y the left sacroiliac joint. Patient's pain prior to procedure:11/04. Patient's pain following the pr ocedure: 05/07. IMPRESSION: 1. Successful left and right sacroiliac joint injections of local anesthetic and steroid with decreas e in the patient's presenting pain. Reviewed, dictated and finalized at location A. IMPRESSION: 1. Successful left and right sacroiliac joint injections of local anesthetic an d steroid with decrease in the patient's presenting pain.
== END 2022-11-09 10:01 | disposition home or self-care (01) ==
PROVIDERS: PCP Internal Medicine; Visit Provider Internal Medicine
DX: M54.50 Low back pain, unspecified (principal); M46.1 Sacroiliitis, not elsewhere classified
CPT/HCPCS: 27096; G0260; J1100; J3301; Q9966

== ENCOUNTER 2022-12-01 12:21 | Outpatient (CLI) | payer MEDICARE, SELFPAY ==
[2022-12-01] MEDS: SODIUM CHLORIDE 0.9% IVPB (13:10)
[2022-12-01] MEDS: ABATACEPT IVPB (13:10)
[2022-12-01] MEDS: MALTOSE IVPB (13:10)
[2022-12-01 13:35] VITALS: BMI 32.3
[2022-12-01 13:36] VITALS: BP 114/69; PULSE 72; RESP 14; TEMP 36.3; O2SAT 99
--- NOTE | 2022-12-01 14:01 | PC.NURSE ---
Patient here for monthly Orencia. No concerns voiced. IV Orencia administered see MAR. Tolerated well. Safe exit of hospital per self/amb. Will return 12/29/22 at 1300.
== END 2022-12-01 12:22 | disposition home or self-care (01) ==
PROVIDERS: PCP Internal Medicine; Visit Provider Internal Medicine Rheumatology
DX: M06.09 Rheumatoid arthritis without rheumatoid factor, multiple sites (principal)
CPT/HCPCS: 96365; J0129

== ENCOUNTER 2022-12-17 14:43 | Outpatient (CLI) | payer MEDICARE, SELFPAY ==
[2022-12-17 15:12] LABS: Creatinine Urine 55.71 mg/dL (40-278); Total Protein Urine Random < 6.0 mg/dL (0.0-11.9); Ur Ttl Prot Creatinine Ratio 0.11 mg/mg (0-0.20)
[2022-12-17 15:26] LABS: Albumin Level 3.8 g/dL (3.4-5.0); Anion Gap 9 mmol/L (8-16); Blood Urea Nitrogen 24 mg/dL (7-18); Calcium 9.2 mg/dL (8.5-10.1); Carbon Dioxide 29 mmol/L (21-32); Chloride 101 mmol/L (98-108); Creatine Kinase 28 U/L (39-308); Estimated Glomerular Filt Rate 37; Glucose 103 mg/dL (70-99); Osmolality Calculated 292 mOsm/kg (285-295); Phosphorus 3.5 mg/dL (2.6-4.7); Potassium 4.6 mmol/L (3.5-5.1); Sodium 139 mmol/L (136-145)
[2022-12-17 15:36] LABS: CRP < 0.5 mg/dL (0.0-0.9)
[2022-12-17 16:09] LABS: Erythrocyte Sedimentation Rate 2 mm/hr (0-20)
== END 2022-12-17 14:44 | disposition home or self-care (01) ==
PROVIDERS: PCP Internal Medicine; Visit Provider Internal Medicine Nephrology
DX: N18.31 Chronic kidney disease, stage 3a (principal); M06.09 Rheumatoid arthritis without rheumatoid factor, multiple sites; R79.89 Other specified abnormal findings of blood chemistry
CPT/HCPCS: 36415; 80069; 82550; 82570; 84156; 85652; 86140

== ENCOUNTER 2022-12-29 12:40 | Outpatient (CLI) | payer MEDICARE, SELFPAY ==
[2022-12-29 12:49] VITALS: BMI 32.3
[2022-12-29 12:59] VITALS: BP 117/68; PULSE 78; RESP 14; TEMP 36.6; O2SAT 99
[2022-12-29] MEDS: ABATACEPT IVPB (13:10)
[2022-12-29] MEDS: MALTOSE IVPB (13:10)
[2022-12-29] MEDS: SODIUM CHLORIDE 0.9% IVPB (13:10)
--- NOTE | 2022-12-29 13:44 | PC.NURSE ---
Patient here for monthly Orencia infusion. No concerns voiced. Orencia infusion administered. SEE MAR. Tolerated well. Safe exit of hospital per amb/self. Will return 01/27/23 1300.
== END 2022-12-29 12:41 | disposition home or self-care (01) ==
LOC: CHSTREATRM 12:44
PROVIDERS: PCP Internal Medicine; Visit Provider Internal Medicine Rheumatology
DX: M06.9 Rheumatoid arthritis, unspecified (principal)
CPT/HCPCS: 96365; J0129

== ENCOUNTER 2023-01-27 12:14 | Outpatient (CLI) | payer MEDICARE, SELFPAY ==
[2023-01-27 12:26] VITALS: BMI 32.3
[2023-01-27 12:37] VITALS: BP 105/63; PULSE 62; RESP 14; TEMP 36.6; O2SAT 98
[2023-01-27] MEDS: ABATACEPT IVPB (12:55)
[2023-01-27] MEDS: SODIUM CHLORIDE 0.9% IVPB (12:55)
[2023-01-27] MEDS: MALTOSE IVPB (12:55)
--- NOTE | 2023-01-27 13:25 | PC.NURSE ---
Patient here for monthly Orencia infusion. No concerns voiced. Orencia infusion administered. SEE MAR. Tolerated well. Will return for next month's 02/24/23 at 1300. Safe exit of hospital per self/amb.
== END 2023-01-27 12:15 | disposition home or self-care (01) ==
PROVIDERS: PCP Internal Medicine; Visit Provider Internal Medicine Rheumatology
DX: M06.9 Rheumatoid arthritis, unspecified (principal)
CPT/HCPCS: 96365; J0129

== ENCOUNTER 2023-02-07 14:55 | Outpatient (CLI) | payer MEDICARE, SELFPAY ==
[2023-02-07 15:13] LABS: Basophils Absolute Auto 0.03 K/mm3 (0.00-0.10); Basophils Percent Auto 0.5 % (0.0-1.0); Eosinophils Absolute Auto 0.13 K/mm3 (0.02-0.50); Eosinophils Percent Auto 2.1 % (1.0-6.0); Hematocrit 44.9 % (37.0-46.0); Hemoglobin 15.2 g/dL (12.4-15.3); Immature Granulocyte Absolute 0.02 K/mm3 (0.00-0.00); Immature Granulocyte Percent A 0.3 % (0.0-0.0); Lymphocytes Absolute Auto 3.17 K/mm3 (1.10-4.50); Lymphocytes Percent Auto 50.2 % (18.0-42.0); Mean Corpuscular HGB Conc 33.9 g/dL (32.0-36.0); Mean Corpuscular Hemoglobin 32.1 pg (27.0-31.0); Mean Corpuscular Volume 94.7 fL (78.0-102.0); Mean Platelet Volume 8.7 fl (8.7-11.0); Monocytes Absolute Auto 0.53 K/mm3 (0.10-0.90); Monocytes Percent Auto 8.4 % (2.0-11.0); Neutrophils Absolute Auto 2.4 K/mm3 (1.7-7.2); Neutrophils Percent Auto 38.5 % (50.0-70.0); Platelet Count Result 245 K/mm3 (150-420); Red Blood Count 4.74 M/mm3 (4.70-6.10); Red Cell Distribution Width 12.9 % (11.6-14.4); White Blood Count 6.3 K/mm3 (4.8-10.8)
[2023-02-07 15:18] LABS: Appearance Urine Clear (Clear); Bilirubin Urine Negative (Negative); Blood Urine Negative (Negative); Color Urine Light Yellow (Yellow); Glucose Urine UA Negative (Negative); Ketones Urine Negative (Negative); Leukocyte Esterase Ur Negative (Negative); Nitrate Urine Negative (Negative); Protein Urine Negative (Negative); Specific Grav Ur <= 1.005 (1.010-1.020); Urobilinogen Urine 0.2 mg/dL (0.2-1.0)
[2023-02-07 15:20] LABS: Add Urine Microscopic? NO
[2023-02-07 15:22] LABS: Hemoglobin A1C 5.7 % (<5.7)
[2023-02-07 15:47] LABS: Alanine Aminotransferase 21 U/L (16-63); Albumin Level 3.6 g/dL (3.4-5.0); Alkaline Phosphatase 111 U/L (46-116); Anion Gap 4 mmol/L (8-16); Aspartate Amino Transferase < 10 U/L (15-37); Bilirubin,Total 0.6 mg/dL (0.00-1.00); Blood Urea Nitrogen 16 mg/dL (7-18); Calcium 8.7 mg/dL (8.5-10.1); Carbon Dioxide 33 mmol/L (21-32); Chloride 99 mmol/L (98-108); Estimated Glomerular Filt Rate 44; Glucose 91 mg/dL (70-99); Osmolality Calculated 283 mOsm/kg (285-295); Potassium 4.5 mmol/L (3.5-5.1); Sodium 136 mmol/L (136-145); Total Protein 6.2 g/dL (6.4-8.2)
== END 2023-02-07 14:56 | disposition home or self-care (01) ==
LOC: CHSLAB 14:57
PROVIDERS: PCP Internal Medicine; Visit Provider Internal Medicine
DX: I10 Essential (primary) hypertension (principal); R73.01 Impaired fasting glucose; E78.2 Mixed hyperlipidemia; E53.8 Deficiency of other specified B group vitamins
CPT/HCPCS: 36415; 80053; 81003; 83036; 85025

== ENCOUNTER 2023-02-24 12:34 | Outpatient (CLI) | payer MEDICARE, SELFPAY ==
--- NOTE | 2023-02-24 12:50 | PC.NURSE ---
Here for OP infusion, taken to 202 on arrival, call light given
[2023-02-24] MEDS: MALTOSE IVPB (13:04)
[2023-02-24] MEDS: SODIUM CHLORIDE 0.9% IVPB (13:04)
[2023-02-24] MEDS: ABATACEPT IVPB (13:04)
[2023-02-24 13:09] VITALS: BP 143/73; PULSE 68; RESP 16; TEMP 36.3; O2SAT 98; BMI 31.0
[2023-02-24 13:50] VITALS: BP 134/78; PULSE 61; RESP 16; TEMP 36.1
--- NOTE | 2023-02-24 13:54 | PC.NURSE ---
Infusion complete. Pt voices no complaints. IV removed intact. VSS. Ambulated without difficulty to elevator.
== END 2023-02-24 12:35 | disposition home or self-care (01) ==
LOC: CHSTREATRM 12:38
PROVIDERS: PCP Internal Medicine; Visit Provider Internal Medicine Rheumatology
DX: M06.9 Rheumatoid arthritis, unspecified (principal)
CPT/HCPCS: 96365; J0129

== ENCOUNTER 2023-03-24 12:01 | Outpatient (CLI) | payer MEDICARE, SELFPAY ==
[2023-03-24 12:41] VITALS: BMI 31.0
[2023-03-24 12:43] VITALS: BP 96/58; PULSE 68; RESP 14; TEMP 36.5; O2SAT 98
[2023-03-24] MEDS: MALTOSE IVPB (12:50)
[2023-03-24] MEDS: ABATACEPT IVPB (12:50)
[2023-03-24] MEDS: SODIUM CHLORIDE 0.9% IVPB (12:50)
--- NOTE | 2023-03-24 13:14 | PC.NURSE ---
Patient here for monthly Orencia infusion. No concerns voiced. IV Orencia infusion administered. SEE MAR. Tolerated well. Safe exit of hospital per ambulatory/self. Will return 04/21/2023 at 1300 for s infusion.
== END 2023-03-24 12:02 | disposition home or self-care (01) ==
PROVIDERS: PCP Internal Medicine; Visit Provider Internal Medicine Rheumatology
DX: M06.9 Rheumatoid arthritis, unspecified (principal)
CPT/HCPCS: 96365; J0129

== ENCOUNTER 2023-04-04 06:58 | Outpatient (CLI) | payer MEDICARE, SELFPAY ==
[2023-04-04 08:23] LABS: Creatinine Urine 37.31 mg/dL (40-278); Total Protein Urine Random < 6.0 mg/dL (0.0-11.9); Ur Ttl Prot Creatinine Ratio 0.16 mg/mg (0-0.20)
[2023-04-04 09:04] LABS: Anion Gap 5 mmol/L (8-16); Blood Urea Nitrogen 24 mg/dL (7-18); Calcium 9.2 mg/dL (8.5-10.1); Carbon Dioxide 33 mmol/L (21-32); Chloride 103 mmol/L (98-108); Estimated Glomerular Filt Rate 43; Glucose 78 mg/dL (70-99); Osmolality Calculated 295 mOsm/kg (285-295); Phosphorus 3.5 mg/dL (2.6-4.7); Potassium 4.5 mmol/L (3.5-5.1); Sodium 141 mmol/L (136-145)
[2023-04-06 11:44] LABS: Vitamin D 25 Hydroxy 40 ng/mL (30-100)
[2023-04-07 20:42] LABS: Parathyroid Intact 77 pg/mL (14-64)
== END 2023-04-04 06:59 | disposition home or self-care (01) ==
LOC: CHSLAB 07:00
PROVIDERS: PCP Internal Medicine; Visit Provider Internal Medicine Nephrology
DX: E55.9 Vitamin D deficiency, unspecified (principal); I12.9 Hypertensive chronic kidney disease with stage 1 through stage 4 chronic kidney disease, or unspecified chronic kidney disease; N25.81 Secondary hyperparathyroidism of renal origin; N18.32 Chronic kidney disease, stage 3b
CPT/HCPCS: 36415; 80069; 82306; 82570; 83970; 84156

== ENCOUNTER 2023-04-21 12:33 | Outpatient (CLI) | payer MEDICARE, SELFPAY ==
[2023-04-21 12:52] VITALS: BP 110/70; PULSE 68; RESP 14; TEMP 36.1; O2SAT 98; BMI 31.0
[2023-04-21] MEDS: SODIUM CHLORIDE 0.9% IVPB (13:15)
[2023-04-21] MEDS: MALTOSE IVPB (13:15)
[2023-04-21] MEDS: ABATACEPT IVPB (13:15)
--- NOTE | 2023-04-21 14:05 | PC.NURSE ---
Patient here for monthly Orencia infusion. Reports could tell he needed the medication this past week of having increased RA pain. IV Orencia administered. SEE MAR. Tolerated well. Will return 05/19/23 at 1300 for next's month's infusion. Safe exit of hospital per self/ambulatory.
== END 2023-04-21 12:34 | disposition home or self-care (01) ==
LOC: CHSTREATRM 12:36
PROVIDERS: PCP Internal Medicine; Visit Provider Internal Medicine Rheumatology
DX: M06.9 Rheumatoid arthritis, unspecified (principal)
CPT/HCPCS: 96365; J0129

== ENCOUNTER 2023-05-19 12:35 | Outpatient (CLI) | payer MEDICARE, SELFPAY ==
[2023-05-19 12:55] VITALS: BP 107/68; PULSE 68; RESP 14; TEMP 36.6; O2SAT 98; BMI 30.9
[2023-05-19] MEDS: MALTOSE IVPB (13:20)
[2023-05-19] MEDS: ABATACEPT IVPB (13:20)
[2023-05-19] MEDS: SODIUM CHLORIDE 0.9% IVPB (13:20)
--- NOTE | 2023-05-19 14:12 | PC.NURSE ---
Patient here for monthly Orencia infusion. No concern voiced. Reports Can really fill it in my joints when this is getting close to have it. Infusion administered. SEE MAR. Tolerated well. Safe exit of hospital per self/ambulatory. Will return 06/16/23 1300 for next infusion.
== END 2023-05-19 14:00 | disposition home or self-care (01) ==
LOC: CHSTREATRM 12:37
PROVIDERS: PCP Internal Medicine; Visit Provider Internal Medicine Rheumatology
DX: M06.9 Rheumatoid arthritis, unspecified (principal)
CPT/HCPCS: 96365; J0129

== ENCOUNTER 2023-07-05 12:42 | Outpatient (CLI) | payer MEDICARE, SELFPAY ==
[2023-07-05 12:47] VITALS: BMI 30.9
[2023-07-05 13:00] VITALS: BP 106/69; PULSE 68; RESP 14; TEMP 36.6; O2SAT 98
[2023-07-05] MEDS: MALTOSE IVPB (13:10)
[2023-07-05] MEDS: ABATACEPT IVPB (13:10)
[2023-07-05] MEDS: SODIUM CHLORIDE 0.9% IVPB (13:10)
--- NOTE | 2023-07-05 14:35 | PC.NURSE ---
Patient here for monthly Orencia. Education given. No concerns voiced. Infusion administered. SEE MAR. Tolerated well. Will return 08/02/23 at 1 pm for next Orencia infusion. Safe exit of hospital per self/ambulation.
== END 2023-07-05 14:37 | disposition home or self-care (01) ==
PROVIDERS: PCP Internal Medicine; Visit Provider Internal Medicine Rheumatology
DX: M06.9 Rheumatoid arthritis, unspecified (principal)
CPT/HCPCS: 96365; J0129

== ENCOUNTER 2023-07-29 07:02 | Outpatient (CLI) | payer MEDICARE, SELFPAY ==
[2023-07-29 07:55] LABS: Basophils Absolute Auto 0.04 K/mm3 (0.00-0.10); Basophils Percent Auto 0.7 % (0.0-1.0); Eosinophils Absolute Auto 0.12 K/mm3 (0.02-0.50); Eosinophils Percent Auto 2.1 % (1.0-6.0); Hematocrit 49.7 % (37.0-46.0); Hemoglobin 15.9 g/dL (12.4-15.3); Immature Granulocyte Absolute 0.03 K/mm3 (0.00-0.00); Immature Granulocyte Percent A 0.5 % (0.0-0.0); Lymphocytes Absolute Auto 2.31 K/mm3 (1.10-4.50); Lymphocytes Percent Auto 39.8 % (18.0-42.0); Mean Corpuscular Hemoglobin 29.9 pg (27.0-31.0); Mean Corpuscular Volume 93.6 fL (78.0-102.0); Mean Platelet Volume 8.7 fl (8.7-11.0); Monocytes Absolute Auto 0.47 K/mm3 (0.10-0.90); Monocytes Percent Auto 8.1 % (2.0-11.0); Neutrophils Absolute Auto 2.83 K/mm3 (1.70-7.20); Neutrophils Percent Auto 48.8 % (50.0-70.0); Platelet Count Result 239 K/mm3 (150-420); Red Blood Count 5.31 M/mm3 (4.70-6.10); Red Cell Distribution Width 13.4 % (11.6-14.4); White Blood Count 5.8 K/mm3 (4.8-10.8)
[2023-07-29 08:12] LABS: Appearance Urine Clear (Clear); Bilirubin Urine 1+ (Negative); Blood Urine Trace-intact (Negative); Color Urine Dark Yellow (Yellow); Glucose Urine UA Negative (Negative); Ketones Urine Negative (Negative); Leukocyte Esterase Ur Negative (Negative); Nitrate Urine Negative (Negative); Protein Urine Trace (Negative); Specific Grav Ur >= 1.030 (1.010-1.020)
[2023-07-29 08:18] LABS: Hemoglobin A1C 5.2 % (<5.7)
[2023-07-29 08:21] LABS: Total Protein Urine Random 43.9 mg/dL (0.0-11.9)
[2023-07-29 08:53] LABS: Alanine Aminotransferase 23 U/L (16-63); Alkaline Phosphatase 105 U/L (46-116); Anion Gap 8 mmol/L (4-12); Aspartate Amino Transferase 14 U/L (15-37); Bilirubin,Total 0.9 mg/dL (0.00-1.00); Blood Urea Nitrogen 21 mg/dL (7-18); Calcium 9.2 mg/dL (8.5-10.1); Carbon Dioxide 30 mmol/L (21-32); Chloride 105 mmol/L (98-108); Cholesterol 274 mg/dL (0-200); Creatine Kinase 48 U/L (39-308); Estimated Glomerular Filt Rate 45; Ferritin 144 ng/mL (26-388); Free T4 Free Thyroxine 0.92 ng/dL (0.76-1.46); Glucose 98 mg/dL (70-99); HDL Direct 56 mg/dL (40-60); Iron 117 ug/dL (65-175); LDL Cholesterol Calculated 196 mg/dL (<130); Osmolality Calculated 299 mOsm/kg (285-295); Phosphorus 3.8 mg/dL (2.6-4.7); Potassium 4.4 mmol/L (3.5-5.1); Prostate Specific Antigen 0.9 ng/mL (< OR = 4.0); Sodium 143 mmol/L (136-145); Thyroid Stimulating Hormone 2.45 uIU/mL (0.36-3.74); Total Protein 6.8 g/dL (6.4-8.2); Triglycerides 111 mg/dL (0-150); Vitamin B12 1469 pg/mL (193-986)
[2023-07-29 09:04] LABS: Add Urine Microscopic? YES; Bacteria Urine Rare /hpf; Mucus Urine Rare /lpf; RBC Urine None seen /hpf (0-2); WBC Urine None seen /hpf (0-3)
== END 2023-07-29 07:03 | disposition home or self-care (01) ==
LOC: CHSLAB 07:05
PROVIDERS: PCP Internal Medicine; Visit Provider Internal Medicine Nephrology
DX: I12.9 Hypertensive chronic kidney disease with stage 1 through stage 4 chronic kidney disease, or unspecified chronic kidney disease (principal); N18.32 Chronic kidney disease, stage 3b; R73.01 Impaired fasting glucose; E53.8 Deficiency of other specified B group vitamins; E78.2 Mixed hyperlipidemia; E03.4 Atrophy of thyroid (acquired); M05.59 Rheumatoid polyneuropathy with rheumatoid arthritis of multiple sites; Z12.5 Encounter for screening for malignant neoplasm of prostate
CPT/HCPCS: 36415; 80053; 80061; 81001; 82550; 82570; 82607; 82728; 83036; 83540; 84100; 84153; 84156; 84439; 84443; 85025; G0103

== ENCOUNTER 2023-08-02 12:24 | Outpatient (CLI) | payer MEDICARE, SELFPAY ==
[2023-08-02 12:53] VITALS: BP 106/69; PULSE 68; RESP 16; TEMP 36.5; O2SAT 98; BMI 30.9
[2023-08-02] MEDS: ABATACEPT IVPB (13:05)
[2023-08-02] MEDS: SODIUM CHLORIDE 0.9% IVPB (13:05)
[2023-08-02] MEDS: MALTOSE IVPB (13:05)
--- NOTE | 2023-08-02 13:36 | PC.NURSE ---
Patient here for monthly Orencia infusion. Education given. No concerns voiced. IV infusion administered. SEE MAR. Tolerated well. Safe exit of hospital. Will return 08/30/23 at 1300. Safe exit of hospital per self/ambulatory.
== END 2023-08-02 12:25 | disposition home or self-care (01) ==
PROVIDERS: PCP Internal Medicine; Visit Provider Internal Medicine Rheumatology
DX: M06.9 Rheumatoid arthritis, unspecified (principal)
CPT/HCPCS: 96365; J0129

== ENCOUNTER 2023-08-30 13:02 | Outpatient (CLI) | payer MEDICARE, SELFPAY ==
[2023-08-30 13:09] VITALS: BMI 30.9
[2023-08-30 13:24] VITALS: BP 106/60; PULSE 60; RESP 14; TEMP 36.4; O2SAT 98
[2023-08-30] MEDS: ABATACEPT IVPB (13:30)
[2023-08-30] MEDS: MALTOSE IVPB (13:30)
[2023-08-30] MEDS: SODIUM CHLORIDE 0.9% IVPB (13:30)
[2023-08-30 14:09] VITALS: BP 109/60; PULSE 64; RESP 14; O2SAT 98
--- NOTE | 2023-08-30 14:10 | PC.NURSE ---
Patient here for monthly Orencia infusion. Education given. No concerns voiced. Infusion administered. SEE MAR. Tolerated well. Will return September 27, 2023 at 1300 for next infusion. Safe exit of hospital per self/ambulatory.
== END 2023-08-30 13:03 | disposition home or self-care (01) ==
PROVIDERS: PCP Internal Medicine; Visit Provider Internal Medicine Rheumatology
DX: M06.9 Rheumatoid arthritis, unspecified (principal)
CPT/HCPCS: 96365; J0129

== ENCOUNTER 2023-09-27 13:03 | Outpatient (CLI) | payer MEDICARE, SELFPAY ==
[2023-09-27 13:17] VITALS: BMI 30.9
[2023-09-27] MEDS: ABATACEPT IVPB (13:35)
[2023-09-27] MEDS: SODIUM CHLORIDE 0.9% IVPB (13:35)
[2023-09-27] MEDS: MALTOSE IVPB (13:35)
[2023-09-27 13:51] VITALS: BP 119/68; PULSE 72; RESP 14; TEMP 36.4; O2SAT 98
[2023-09-27 14:06] VITALS: BP 121/69
--- NOTE | 2023-09-27 14:07 | PC.NURSE ---
Patient here for monthly Orencia infusion. Education given. No concerns voiced. Orencia administered. SEE MAR. Tolerated well. Safe exit of hospital per self/ambulatory. Will return October 25, 2023 at 1 pm for next infusion.
== END 2023-09-27 13:04 | disposition home or self-care (01) ==
PROVIDERS: PCP Internal Medicine; Visit Provider Internal Medicine Rheumatology
DX: M06.9 Rheumatoid arthritis, unspecified (principal)
CPT/HCPCS: 96365; J0129

== ENCOUNTER 2023-10-21 07:17 | Outpatient (CLI) | payer MEDICARE, SELFPAY ==
[2023-10-21 08:11] LABS: Alanine Aminotransferase 18 U/L (16-63); Aspartate Amino Transferase 12 U/L (15-37); Cholesterol 166 mg/dL (0-200); Creatine Kinase 44 U/L (39-308); HDL Direct 52 mg/dL (40-60); LDL Cholesterol Calculated 98 mg/dL (<130); Triglycerides 81 mg/dL (0-150)
== END 2023-10-21 07:18 | disposition home or self-care (01) ==
LOC: CHSLAB 07:19
PROVIDERS: PCP Internal Medicine; Visit Provider Internal Medicine
DX: E78.2 Mixed hyperlipidemia (principal)
CPT/HCPCS: 36415; 80061; 82550; 84450; 84460

== ENCOUNTER 2023-10-25 13:05 | Outpatient (CLI) | payer MEDICARE, SELFPAY ==
[2023-10-25 13:25] VITALS: BP 121/64; PULSE 72; RESP 16; TEMP 36.4; O2SAT 98; BMI 30.9
[2023-10-25] MEDS: ABATACEPT IVPB (13:35)
[2023-10-25] MEDS: SODIUM CHLORIDE 0.9% IVPB (13:35)
[2023-10-25] MEDS: MALTOSE IVPB (13:35)
[2023-10-25 14:04] VITALS: BP 118/67; PULSE 68
--- NOTE | 2023-10-25 14:14 | PC.NURSE ---
Patient here for monthly Orencia infusion. Education given. NO concerns voiced. Orencia administered. SEE MAR Patient care notes. Tolerated well.
== END 2023-10-25 13:06 | disposition home or self-care (01) ==
PROVIDERS: PCP Internal Medicine; Visit Provider Internal Medicine Rheumatology
DX: M06.9 Rheumatoid arthritis, unspecified (principal)
CPT/HCPCS: 96365; J0129

== ENCOUNTER 2023-11-22 12:57 | Outpatient (CLI) | payer MEDICARE, SELFPAY ==
[2023-11-22 13:05] VITALS: BMI 30.9
[2023-11-22 13:19] VITALS: BP 116/74; PULSE 78; RESP 14; TEMP 36.4; O2SAT 98
[2023-11-22] MEDS: ABATACEPT IVPB (13:30)
[2023-11-22] MEDS: MALTOSE IVPB (13:30)
[2023-11-22] MEDS: SODIUM CHLORIDE 0.9% IVPB (13:30)
--- NOTE | 2023-11-22 14:14 | PC.NURSE ---
Patient here for monthly Orencia infusion. Education given. No concerns voiced. Medication administered. SEE MAR/patient care notes. Tolerated well.
[2023-11-22 14:15] VITALS: BP 110/63; PULSE 78; RESP 16; O2SAT 98
== END 2023-11-22 12:58 | disposition home or self-care (01) ==
PROVIDERS: PCP Internal Medicine; Visit Provider Internal Medicine Rheumatology
DX: M06.9 Rheumatoid arthritis, unspecified (principal)
CPT/HCPCS: 96365; J0129

== ENCOUNTER 2023-12-10 07:33 | Outpatient (CLI) | payer MEDICARE, SELFPAY ==
[2023-12-10 08:17] LABS: Creatinine Urine 41.74 mg/dL (40-278); Total Protein Urine Random < 6.0 mg/dL (0.0-11.9); Ur Ttl Prot Creatinine Ratio 0.14 mg/mg (0-0.20)
[2023-12-10 08:41] LABS: Albumin Level 3.8 g/dL (3.4-5.0); Anion Gap 5 mmol/L (4-12); Blood Urea Nitrogen 28 mg/dL (7-18); Carbon Dioxide 33 mmol/L (21-32); Chloride 101 mmol/L (98-108); Estimated Glomerular Filt Rate 47; Glucose 95 mg/dL (70-99); Osmolality Calculated 293 mOsm/kg (285-295); Phosphorus 3.9 mg/dL (2.6-4.7); Potassium 4.2 mmol/L (3.5-5.1); Sodium 139 mmol/L (136-145)
[2023-12-13 00:48] LABS: Parathyroid Intact 80 pg/mL (16-77)
[2023-12-13 06:23] LABS: Vitamin D 25 Hydroxy 57 ng/mL (30-100)
== END 2023-12-10 07:34 | disposition home or self-care (01) ==
LOC: CHSLAB 07:34
PROVIDERS: PCP Internal Medicine; Visit Provider Internal Medicine Nephrology
DX: N25.81 Secondary hyperparathyroidism of renal origin (principal); N18.31 Chronic kidney disease, stage 3a; E55.9 Vitamin D deficiency, unspecified; I12.9 Hypertensive chronic kidney disease with stage 1 through stage 4 chronic kidney disease, or unspecified chronic kidney disease
CPT/HCPCS: 36415; 80069; 82306; 82570; 83970; 84156

== ENCOUNTER 2023-12-20 11:43 | Outpatient (CLI) | payer MEDICARE, SELFPAY ==
[2023-12-20] MEDS: MALTOSE IVPB (13:10)
[2023-12-20] MEDS: SODIUM CHLORIDE 0.9% IVPB (13:10)
[2023-12-20] MEDS: ABATACEPT IVPB (13:10)
[2023-12-20 13:20] VITALS: BMI 30.3
[2023-12-20 13:23] VITALS: BP 109/64; PULSE 72; RESP 16; TEMP 36.4; O2SAT 98
[2023-12-20 13:54] VITALS: BP 112/64; PULSE 68; RESP 14; TEMP 36.6; O2SAT 97
--- NOTE | 2023-12-20 13:59 | PC.NURSE ---
Patient here for monthly Orencia infusion. Education given. No concerns voiced. Infusion administered. SEE MAR/patient care note. Tolerated well.
== END 2023-12-20 11:44 | disposition home or self-care (01) ==
PROVIDERS: PCP Internal Medicine; Visit Provider Internal Medicine Rheumatology
DX: M06.9 Rheumatoid arthritis, unspecified (principal)
CPT/HCPCS: 96365; J0129

== ENCOUNTER 2024-01-17 12:48 | Outpatient (CLI) | payer MEDICARE, SELFPAY ==
[2024-01-17 12:56] VITALS: BMI 29.5
[2024-01-17 13:08] VITALS: BP 112/63; PULSE 68; RESP 16; TEMP 36.4; O2SAT 98
[2024-01-17] MEDS: MALTOSE IVPB (13:15)
[2024-01-17] MEDS: ABATACEPT IVPB (13:15)
[2024-01-17] MEDS: SODIUM CHLORIDE 0.9% IVPB (13:15)
[2024-01-17 14:04] VITALS: BP 124/70; PULSE 72; RESP 16
--- NOTE | 2024-01-17 14:11 | PC.NURSE ---
Patient here for monthly Orencia. Education given. No concerns voiced. Orencia administered. SEE MAR/patient care list. Tolerated well.
== END 2024-01-17 14:13 | disposition home or self-care (01) ==
PROVIDERS: PCP Internal Medicine; Visit Provider Internal Medicine Rheumatology
DX: M06.9 Rheumatoid arthritis, unspecified (principal)
CPT/HCPCS: 96365; J0129

== ENCOUNTER 2024-02-14 12:34 | Outpatient (CLI) | payer MEDICARE, SELFPAY ==
[2024-02-14 12:45] VITALS: BMI 29.3
[2024-02-14 12:57] VITALS: BP 111/63; PULSE 72; RESP 16; TEMP 36.4; O2SAT 97
[2024-02-14] MEDS: ABATACEPT IVPB (13:10)
[2024-02-14] MEDS: SODIUM CHLORIDE 0.9% IVPB (13:10)
[2024-02-14] MEDS: MALTOSE IVPB (13:10)
[2024-02-14 13:50] VITALS: BP 117/70; PULSE 74; RESP 14
--- NOTE | 2024-02-14 13:51 | PC.NURSE ---
Patient here for monthly Orencia infusion. Education given. No concerns voiced. Orencia infusion administered. SEE MAR/patient care notes. Tolerated well.
== END 2024-02-14 12:35 | disposition home or self-care (01) ==
PROVIDERS: PCP Internal Medicine; Visit Provider Internal Medicine Rheumatology
DX: M06.9 Rheumatoid arthritis, unspecified (principal)
CPT/HCPCS: 96365; J0129

== ENCOUNTER 2024-02-16 06:52 | Outpatient (CLI) | payer MEDICARE, SELFPAY ==
[2024-02-16 07:14] LABS: Basophils Absolute Auto 0.03 K/mm3 (0.00-0.10); Basophils Percent Auto 0.5 % (0.0-1.0); Eosinophils Absolute Auto 0.11 K/mm3 (0.02-0.50); Hematocrit 44.8 % (37.0-46.0); Hemoglobin 15.3 g/dL (12.4-15.3); Immature Granulocyte Absolute 0.03 K/mm3 (0.00-0.00); Immature Granulocyte Percent A 0.5 % (0.0-0.0); Lymphocytes Absolute Auto 2.98 K/mm3 (1.10-4.50); Lymphocytes Percent Auto 53.2 % (18.0-42.0); Mean Corpuscular HGB Conc 34.2 g/dL (32-36); Mean Corpuscular Hemoglobin 31.3 pg (27.0-31.0); Mean Corpuscular Volume 91.6 fL (78.0-102.0); Mean Platelet Volume 8.4 fl (8.7-11.0); Monocytes Absolute Auto 0.44 K/mm3 (0.10-0.90); Monocytes Percent Auto 7.9 % (2.0-11.0); Neutrophils Absolute Auto 2.01 K/mm3 (1.70-7.20); Neutrophils Percent Auto 35.9 % (50.0-70.0); Platelet Count Result 201 K/mm3 (150-420); Red Blood Count 4.89 M/mm3 (4.70-6.10); Red Cell Distribution Width 12.8 % (11.6-14.4); White Blood Count 5.6 K/mm3 (4.8-10.8)
[2024-02-16 07:15] LABS: Add Urine Microscopic? NO; Appearance Urine Clear (Clear); Bilirubin Urine Negative (Negative); Blood Urine Negative (Negative); Color Urine Light Yellow (Yellow); Glucose Urine UA Negative (Negative); Ketones Urine Negative (Negative); Leukocyte Esterase Ur Negative (Negative); Nitrate Urine Negative (Negative); Protein Urine Negative (Negative); Urobilinogen Urine 0.2 mg/dL (0.2-1.0); pH Urine 5.5 (5.0-8.0)
[2024-02-16 07:24] LABS: Hemoglobin A1C 5.5 % (<5.7)
[2024-02-16 08:18] LABS: Alanine Aminotransferase 24 U/L (16-63); Albumin Level 3.9 g/dL (3.4-5.0); Alkaline Phosphatase 103 U/L (46-116); Anion Gap 7 mmol/L (4-12); Aspartate Amino Transferase 13 U/L (15-37); Bilirubin,Total 0.8 mg/dL (0.00-1.00); Blood Urea Nitrogen 20 mg/dL (7-18); Calcium 8.9 mg/dL (8.5-10.1); Carbon Dioxide 31 mmol/L (21-32); Chloride 99 mmol/L (98-108); Cholesterol 149 mg/dL (0-200); Creatine Kinase 45 U/L (39-308); Estimated Glomerular Filt Rate 44; Ferritin 132 ng/mL (26-388); Free T4 Free Thyroxine 0.97 ng/dL (0.76-1.46); Glucose 91 mg/dL (70-99); HDL Direct 49 mg/dL (40-60); Iron 86 ug/dL (65-175); LDL Cholesterol Calculated 80 mg/dL (<130); Osmolality Calculated 286 mOsm/kg (285-295); Potassium 4.2 mmol/L (3.5-5.1); Sodium 137 mmol/L (136-145); Thyroid Stimulating Hormone 4.47 uIU/mL (0.36-3.74); Total Protein 6.3 g/dL (6.4-8.2); Triglycerides 100 mg/dL (0-150); Vitamin B12 1819 pg/mL (193-986)
== END 2024-02-16 06:53 | disposition home or self-care (01) ==
LOC: CHSLAB 06:53
PROVIDERS: PCP Internal Medicine; Visit Provider Internal Medicine
DX: N18.30 Chronic kidney disease, stage 3 unspecified (principal); E53.8 Deficiency of other specified B group vitamins; I10 Essential (primary) hypertension; R73.01 Impaired fasting glucose; E78.2 Mixed hyperlipidemia
CPT/HCPCS: 36415; 80053; 80061; 81003; 82550; 82607; 82728; 83036; 83540; 84439; 84443; 85025

== ENCOUNTER 2024-03-13 15:45 | Outpatient (CLI) | payer MEDICARE, SELFPAY ==
--- NOTE | ~2024-03-13 | XR_ITS ---
EXAMINATION: XR thoracic spine 3V DATE: 03/13/2024 16:14 INDICATION: Back pain. Fall. TECHNIQUE: 3 views of thoracic spine were obtained. COMPARISON: None. FINDINGS: There is 8 degrees dextrocurvature of thoracic spine. Vertebral body heights and interverte bral disc heights are normal. There are bridging endplate osteophytes at multiple levels in the spine , consistent with diffuse idiopathic skeletal hyperostosis (DISH). Surgical clips in the right upper quadrant are likely from cholecystectomy. IMPRESSION: 1. DISH. Reviewed, dictated and finalized at location A. BUILDER IMPRESSION: 1. DISH.
--- NOTE | ~2024-03-13 | XR_ITS ---
EXAMINATION: XR lumbar spine 2-3V DATE: 03/13/2024 16:14 INDICATION: Back pain. Fall. TECHNIQUE: 3 views of lumbar spine were obtained. COMPARISON: None. FINDINGS: There is dextroscoliosis of thoracolumbar spine. There is 3 mm retrolisthesis of L1 on L2 a nd L2 on L3. Vertebral body heights are normal. There are bridging endplate osteophytes at multiple l evels in the thoracic spine, consistent with diffuse idiopathic skeletal hyperostosis (DISH). There i s moderately decreased disc height at L1-L2 and L2-L3. There are changes of posterior fusion procedur e L4-L5 with pedicle screws. There is multilevel severe facet joint osteoarthrosis. IMPRESSION: 1. Moderate lumbar spondylosis. 2. DISH. 3. Posterior fusion procedure at L4-L5. Reviewed, dictated and finalized at location A. UNTING SYSTEMS MANAGER
== END 2024-03-13 15:46 | disposition home or self-care (01) ==
PROVIDERS: PCP Internal Medicine; Visit Provider Internal Medicine
DX: M48.14 Ankylosing hyperostosis [Forestier], thoracic region (principal); W19.XXXA Unspecified fall, initial encounter
CPT/HCPCS: 72072; 72100

== ENCOUNTER 2024-03-15 12:49 | Outpatient (CLI) | payer MEDICARE, SELFPAY ==
[2024-03-15 13:04] VITALS: BP 122/71; PULSE 72; RESP 14; TEMP 36.4; O2SAT 97
[2024-03-15] MEDS: ABATACEPT IVPB (13:24)
[2024-03-15] MEDS: SODIUM CHLORIDE 0.9% IVPB (13:24)
[2024-03-15] MEDS: MALTOSE IVPB (13:24)
[2024-03-15 13:42] VITALS: BMI 29.3
[2024-03-15 14:04] VITALS: BP 123/74; PULSE 72; RESP 14
--- NOTE | 2024-03-15 14:06 | PC.NURSE ---
Patient here for monthly Orencia infusion. Education given. No concerns voiced. Infusion administered. see MAR/patient care notes. Tolerated well.
== END 2024-03-15 12:50 | disposition home or self-care (01) ==
PROVIDERS: PCP Internal Medicine; Visit Provider Internal Medicine Rheumatology
DX: M06.9 Rheumatoid arthritis, unspecified (principal)
CPT/HCPCS: 96365; J0129

== ENCOUNTER 2024-04-13 07:20 | Outpatient (CLI) | payer MEDICARE, SELFPAY ==
[2024-04-13 07:41] LABS: Hematocrit 46.8 % (37.0-46.0); Hemoglobin 15.4 g/dL (12.4-15.3); Mean Corpuscular HGB Conc 32.9 g/dL (32-36); Mean Corpuscular Hemoglobin 30.7 pg (27.0-31.0); Mean Corpuscular Volume 93.2 fL (78.0-102.0); Mean Platelet Volume 8.6 fl (8.7-11.0); Platelet Count Result 236 K/mm3 (150-420); Red Blood Count 5.02 M/mm3 (4.70-6.10); Red Cell Distribution Width 13.2 % (11.6-14.4); White Blood Count 7.3 K/mm3 (4.8-10.8)
[2024-04-13 08:35] LABS: Free T3 2.12 pg/mL (2.18-3.98); Free T4 Free Thyroxine 0.84 ng/dL (0.76-1.46); Thyroid Stimulating Hormone 2.33 uIU/mL (0.36-3.74)
[2024-04-13 12:33] VITALS: BP 134/79; PULSE 68; RESP 14; TEMP 36.4; O2SAT 98
[2024-04-13 12:35] VITALS: BMI 29.0
[2024-04-13] MEDS: SODIUM CHLORIDE 0.9% IVPB (12:49)
[2024-04-13] MEDS: ABATACEPT IVPB (12:49)
[2024-04-13] MEDS: MALTOSE IVPB (12:49)
--- NOTE | 2024-04-13 13:27 | PC.NURSE ---
Tolerated Orencia infusion well. SEE MAR/patient care notes.
[2024-04-13 13:31] VITALS: BP 128/66; PULSE 68; RESP 14; O2SAT 97
[2024-04-16 13:58] LABS: Thyroid Peroxidase Antibodies <1 IU/mL (<9)
[2024-04-18 13:47] LABS: Reference Lab Test Name FLOW CYTOMETRY
[2024-04-18 20:29] LABS: Thyroxin Binding Globulin 16.7 mcg/mL (12.7-25.1)
--- OUTSIDE RECORDS SUMMARY | 2024-04-19 05:03 | XMS_ITS | Clinical Summary ---
Author Organization [facility] Address [address] [place] [address] Care Team Providers Care Facility Specialist Name Role Phone Michael Hussein MD Primary Care Provider [phone] Source Comments [facility],non-owned Affiliates and Associated Physician Practices is amultiple site organization consisting of ambulatory clinics and hospital sitesin [place], [place], [place] and [place]. This disclosure is being madepursuant to the Care Everywhere program and may not contain all information available regarding this patient. Last updated 17.[facility] Allergies Active Allergy Reactions Criticality Noted Date Comments Bupropion Shortness of Breath,Swelling High 06/09/2020 Clindamycin 09/04/2013 Contrast-Iodinated Agents For Ct/Other Swelling,Skin Reactions 11/19/2019 Fentanyl Other Medium 07/28/2020 Per patient Hydrocodone Psychiatric Medium 12/19/2017 Can tolerate oxycodone Meloxicam Other Low 06/01/2023 Kidney issues Methotrexate Other Low 07/17/2020 brusing Niacin Shortness of Breath,Nausea and/or Vomiting,Fever High 08/09/2018 Tramadol Shortness of Breath High 06/01/2023 Zinc Other 12/05/2017 unknown Zolpidem Other Medium 07/28/2020 Per patient Medications * Be aware that medications may not be up to date on this document. Alwaysverify current medications with the patient. Medication Sig Dispensed Refills Start Date End Date Status ALPRAZolam (XANAX) 0.5 MG tablet Take 4 (four) tablets by mouth 3 times daily as needed Active losartan (COZAAR) 100 MG tablet Take 1 (one) tablet by mouth once daily Active atorvastatin (LIPITOR) 10 MG tablet Take 1 (one) tablet by mouth at bedtime Active diclofenac sodium (VOLTAREN) 1 % gel every 8 hours 04/30/2020 Act linda triamcinolone acetonide (Trianex) 0.05 % ointment Apply to affected area 4 times daily Active Coenzyme Q10 (CO Q 10 PO) Take 200 mg by mouth once daily Active IPRATROPIUM BROMIDE NA Active abatacept (Orencia) IV injectionIndications :Rheumatoid Arthritis 1,000 (one thousand) mg by Intravenous route every 28 days Reasons: Rheumatoid Arthritis 1 Each 11 12/01/2023 Active Active Problems Problem Noted Date Diagnosed Date FPC (current) use of i mmunosuppressive biologic (Orencia) 12/02/2022 Spinal stenosis of lumbar re gion with neurogenic claudication 12/22/2017 Depression with anxiety 12/22/2017 Renal insufficiency syndrome 10/03/2017 Overview (04/04/2019): Last Assessment & Plan: His creatinine was 1.51 based on labs obtained last month. Back in June his creatinine was 1.46. He denies ever being told he has any renal insufficiency. He is not on any NSAIDs or renal toxic medications at this time. He was instructed to follow up with Dr. Tomas regarding this. Osteoarthritis of multiple joints 05/26/2017 Overview (04/04/2019): Overview: Bilat knees, cmc joints Last Assessment & Plan: This mainly involves the bilateral CMC joints with the right greater than the left as well as the bilateral knees. He is taking Percocet as prescribed by Dr. Tomas which does offer some benefit. Rheumatoid arthritis of [facility] sites with negative rheumatoid factor 05/26/2017 Overview (04/04/2019): Overview: Anti-ccp 83 Pain and stiffness over mcp, pip joints (greatest in 1st and 2nd mcp joints); pain in left toe since heavy tile fell on foot >1 year ago. AM stiffness ~1 hour Xray left foot (03/09/17): small calcaneal spur Xray right knee (03/09/17): mild joint space narrowing with moderate patellar spur formation Xray left knee (03/09/17): mild/moderate degenerative changes Xray left hand (04/20/17): joint space narrowing and anterior subluxation and subcortical cystic changes at 1st, 2nd, 3rd mcp joints; degenerative changes of cmc joint and 3rd dip joint Xray right hand (04/20/17): moderate to advance joint space narrowing and subcortical cystic changes at cmc joint; degenerative changes in thumb and 3rd dip joint US right hand/wrist (05/02/17): Moderate synovitis with effusions, synovial thickening and power doppler. Finds greatest in the ulnar styloid with a grade 1 effusion and grade 2 power doppler, long view of the wrist with a grade 1 effusion and grade 1 power doppler, and radial/scaphoid joint and 5th MCP joint with a grade 2 effusion. Also with grade 1 effusions over remaining MCP joints. Synovial thickening seen throughout the wrist, MCP, and PIP joints. MTX caused cognitive dysfunction Leflunomide started 10/03/17 Last Assessment & Plan: He still is having some pain and stiffness throughout the MCP and PIP joints as well as the bilateral wrist and left foot. He is tolerating leflunomide well although is uncertain of the benefit. He does have some synovitis and tenderness over several MCP and PIP joints as well as the wrist on exam today. Will increase the leflunomide to 20 mg p.o. daily. Depending on how he does with the increased leflunomide will consider biologic treatment. Will obtain labs as below. Follow-up in 4 weeks. Hyperplastic colon polyp 02/09/2012 Lumbar radiculopathy Resolved Problems Problem Noted Date Diagnosed Date Resolved Date High risk medication use (Orencia IV) 06/04/2021 12/02/2022 Assessment & Plan (06/04/2021 11:10 AM LIST OF FIRST JOB IDEAS): Reviewed potential inherent risks with the continued use of Orencia as a biologic therapy for his rheumatoid arthritis condition including but not limited to infection complications as well as reports of higher risk for the development of lymphoma and perhaps lung malignancies. 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 The patient indicated a preference remain on Orencia and had no additional questions regarding potential risks associated with the use of this form of treatment. Immunizations Name Administration Dates Next Due Covid Pfizer primary monoval ent 12+ yr 0.3mL Purple cap 06/19/2020,05/22/2020 Family History Medical History Relation Name Comments Depression Brother Cancer Mother Hypercholesterolemia Mother Asthma Sister Relation Name Status Comments Brother Father Mother Sister Social History Tobacco Use Types Packs/Day Years Used Date Smoking Tobacco: Never Smokeless Tobacco: Never Tobacco Cessation:Counseling Given: Not Answered Alcohol Use Standard Drinks/Week Comments Not Currently 0 (1 standard drink = 0.6 oz pur e alcohol) Sex and Gender Information Value Date Recorded Sex Assigned at Not on file Gender Identity Not on file Sexual Orientation Not on file Last Filed Vital Signs Vital Sign Reading Time Taken Comments Blood Pressure 104/64 12/01/2023 8:45 AM CDT Pulse 61 12/01/2023 8:45 AM CDT Temperature 36.7 ??C (98 ??F) 12/02/2022 8:46 AM CDT Respiratory Rate 16 12/02/2022 8:46 AM CDT Oxygen Saturation 93% 12/01/2023 8:45 AM CDT Inhaled Oxygen Concentration - - Weight 97.5 kg (215 lb) 12/01/2023 8:45 AM CDT Height 177.8 cm (5' 10 ) 12/01/2023 8:45 AM CDT Body Mass Index 30.85 12/01/2023 8:45 AM CDT Plan of Treatment Upcoming Encounters Date Type Department Care Team (Late st Contact Info) Description 12/06/2024 9:00 AM CDT Office Visit [facility] - [facility]ology [address], [address] [place] [address] Tuan Poon DO [address] [place] [address] Health Maintenance Due Date Last Done Comments COLOGUARD (AGES 45-75) - COLON CA SCREENING 1950 CT COLONOGRAPHY - COLON CA SCREENING 1950 FIT - COLON CA SCREENING 1950 FLEX SIG - COLON CA SCREENING 1950 MEDICARE AWV ? 12 MONTHS 1950 DTAP/TDAP/TD VACCINES (1 - Tdap) 1971 PNEUMOCOCCAL VACCINE 50+ (1 of 1 - PCV) 2002 ZOSTER VACCINE (1 of 2) 2002 HEPATITIS B VACCINE (1 of 3 - Risk 3-dose series) 2012 COLON MONITORING 01/30/2017 01/31/2012 Colorectal Cancer Screening 01/30/2017 COLONOSCOPY - COLON CA SCREENING 01/30/2022 01/31/2012 SCREENING FOR DIABETES 11/06/2023 , 07/10/2018, 04/10/2018, Additional history exists COVID-19 VACCINE ( - season) 2023 06/19/2020, 05/22/2020 INFLUENZA VACCINE (#1) 2023 DEPRESSION SCREENING 03/28/2024 Respiratory Syncytial Virus (RSV) Vaccine Pt: or over 60 yrs (1 - 1-dose 75+ series) 2027 HEPATITIS C SCREENING Completed 02/06/2020, 019 HIB VACCINE Aged Out No longer eligi ble based on patient's age to complete this topic HPV VACCINE Aged Out No longer eligi ble based on patient's age to complete this topic MENINGOCOCCAL (Group B) VACCINE Aged Out No longer eligible based on patient's age to complete this topic MENINGOCOCCAL VACCINE Aged Out No mynor rosalinda eligible based on patient's age to complete this topic Medical Devices Implanted Type Area Translator Interpreter Device Identifier Shelf Expiration Date Model / Serial / Lot Graft Bone Alfs + Dbm 5ml Ptty Implanted:Qty: 1 on 12/20/2017 by Easton Paula DO at [facility] N/A: Spine Lumbar [employer] 04/27/2019 [id number] / / [id number] Henderson Set Screw Implanted:Qty: 4 on 12/20/2017 by Easton Paula DO at [facility] N/A: Spine Lumbar Medical [facility] [id number] / / 6.5x50mm Screw Implanted:Qty: 2 on 12/20/2017 by Easton Paula DO at [facility] N/A: Spine Lumbar [employer] [id number] / / 6.5x55mm Screw Implanted:Qty: 1 on 12/20/2017 by Easton Paula DO at [facility] N/A: Spine Lumbar [employer] [id number] / / 6.5x60mm Screw Implanted:Qty: 1 on 12/20/2017 by Easton Paula DO at [facility] N/A: Spine Lumbar [employer] [id number] / / 35mm Flavio Implanted:Qty: 1 on 12/20/2017 by Easton Paula DO at [facility] N/A: Spine Lumbar [employer] [id number] / / 40mm Flavio Implanted:Qty: 1 on 12/20/2017 by Easton Paula DO at [facility] N/A: Spine Lumbar [employer] [id number] / / Procedures Procedure Name Priority Date/Time Associated Diagnosis Comments COMPREHENSIVE METABOLIC PANEL 11/05/2020 3:48 PM CDT HEPATITIS SCREEN ACUTE 0 3:20 PM LIST OF FIRST JOB IDEAS ENDOSCOPY, COLON, SCREENING Routine 01/31/2012 1:26 PM LIST OF FIRST JOB IDEAS from Last 3 Months or Most Recently Relevant to Health Maintenance Results * (ABNORMAL) COMPREHENSIVE METABOLIC PANEL (11/05/2020 3:48 PM CDT) [facility] Glucose 99 65 - 99 mg/dL [facility] Comment: ? Fasting reference interval BUN 32(H) 7 - 25 mg/dL [facility] Creatinine 1.36(H) 0.70 - 1.25 mg/dL [facility] Comment: For patients >49 years of age, the reference limit for Creatinine is approximately 13% higher for people identified as -Bolivian. eGFR by MDRD 53(L) > OR = 60 mL/min/1. 73m2 [facility] eGFR by MDRD 62 > OR = 60 mL/min/1. 73m2 [facility] BUN/Creatinine Ratio 24(H) 6 - 22 (calc) [facility] Sodium 131(L) 135 - 146 mmol/L [facility] Potassium 4.6 3.5 - 5.3 mmol/L [facility] Chloride 95(L) 98 - 110 mmol/L [facility] CO2 26 20 - 32 mmol/L [facility] Calcium 9.6 8.6 - 10.3 mg/dL [facility] Protein Total 6.5 6.1 - 8.1 g/dL [facility] Albumin 4.5 3.6 - 5.1 g/dL [facility] Globulin Total 2.0 1.9 - 3.7 g/dL (calc) [facility] Albumin/Globulin Ratio 2.3 1.0 - 2.5 (calc) [facility] Bilirubin Total 0.6 0.2 - 1.2 mg/dL [facility] Alkaline Phosphatase 94 35 - 144 U/L [facility] AST 10 10 - 35 U/L [facility] ALT 9 9 - 46 U/L [facility] Comment: Test Performed at: [facility] [id number] [place], [place] ??[id number] SHEILA PÉREZ DO,MPH 11/05/2020 3:48 PM CDT 11/05/2020 3:49 PM CDT Narendra Spencer MD LAB - CHEMISTRY OR DERABLES Performing Organization Address City/State/[facility] Co de Phone Number [facility] [address] [place] [address] * HEPATITIS SCREEN ACUTE (02/06/2020 3:20 PM LIST OF FIRST JOB IDEAS) Hepatitis A Virus Antibody IgM NON-REACT LINDA NON-REACT LINDA [facility] Comment: For additional information, please refer to http://education.[employer]/faq/HXV862 (This link is being provided for informational/ educational purposes only.) Hepatitis B Virus Surface Antigen NON-REACT LINDA NON-REACT LINDA [facility] Confirmation [facility] Hepatitis B Core Virus Antibody IgM NON-REACT LINDA NON-REACT LINDA [facility] Hepatitis C Antibody NON-REACT LINDA NON-REACT LINDA [facility] Signal to Cut-Off 0.01 <1.00 [facility] Comment: HCV antibody was non-reactive. There is no laboratory evidence of HCV infection. In most cases, no further action is required. However, if recent HCV exposure is suspected, a test for HCV RNA (test code 59556) is suggested. For additional information please refer to http://education.[employer]/faq/XKY76i9 (This link is being provided for informational/ educational purposes only.) Test Performed at: [facility] [address] [facility] [facility] [place] ??[phone] SHEILA PÉREZ DO,MPH 02/06/2020 3:20 PM LIST OF FIRST JOB IDEAS 02/06/2020 3:21 PM LIST OF FIRST JOB IDEAS Narendra Spencer MD LAB - CHEMISTRY OR DERABLES [facility] [id number] [place] [address] * ENDOSCOPY, COLON, SCREENING (01/31/2012 1:26 PM LIST OF FIRST JOB IDEAS) Narrative Transcriptions Amaury Noyola MD - 01/31/2012 1:26 PM CST Amaury Noyola MD GI [facility]ED[facility] from Last 3 Months or Most Recently Relevant to Health Maintenance Advance Directives Documents on File Type Date Recorded 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
--- OUTSIDE RECORDS SUMMARY | 2024-04-19 05:03 | XMS_ITS | Patient Health Summary ---
Author Organization [facility] Address [address] [place] [address] Care Team Providers Care Ambulance Mechanic Name Role Phone Michael Hussein MD Primary Care Provider [phone] Note from [facility],non-owned Affiliates and Associated Physician Practices is amultiple site organization consisting of ambulatory clinics and hospital sitesin [place], [place], [place] and [place]. This disclosure is being madepursuant to the Care Everywhere program and may not contain all information available regarding this patient. Last updated 17.[facility] Allergies * Bupropion(Shortness of Breath,Swelling) -High Criticality * Clindamycin * Contrast-Iodinated Agents For Ct/Other(Swelling,Skin Reactions) * Fentanyl(Other) -Medium Criticality * Hydrocodone(Psychiatric) -Medium Criticality * Meloxicam(Other) -Low Criticality * Methotrexate(Other) -Low Criticality * Niacin(Shortness of Breath,Nausea and/or Vomiting,Fever) -High Criticality * Tramadol(Shortness of Breath) -High Criticality * Zinc(Other) * Zolpidem(Other) -Medium Criticality Medications * Be aware that medications may not be up to date on this document. Alwaysverify current medications with the patient. * ALPRAZolam (XANAX) 0.5 MG tablet Take 4 (four) tablets by mouth 3 times daily as needed * losartan (COZAAR) 100 MG tablet Take 1 (one) tablet by mouth once daily * atorvastatin (LIPITOR) 10 MG tablet Take 1 (one) tablet by mouth at bedtime * diclofenac sodium (VOLTAREN) 1 % gel(Started 04/30/2020) every 8 hours * triamcinolone acetonide (Trianex) 0.05 % ointment Apply to affected area 4 times daily * Coenzyme Q10 (CO Q 10 PO) Take 200 mg by mouth once daily * IPRATROPIUM BROMIDE NA * abatacept (Orencia) IV injection(Started 12/01/2023) 1,000 (one thousand) mg by Intravenous route every 28 days Reasons: Rheumatoid Arthritis 11 refills by 11/30/2024 Active Problems Problem Noted Date Diagnosed Date prison (current) use of i mmunosuppressive biologic (Orencia) 12/02/2022 Spinal stenosis of lumbar re gion with neurogenic claudication 12/22/2017 Depression with anxiety 12/22/2017 Renal insufficiency syndrome 10/03/2017 Osteoarthritis of multiple joints 05/26/2017 Rheumatoid arthritis of mult iple sites with negative rheumatoid factor 05/26/2017 Hyperplastic colon polyp 02/09/2012 Lumbar radiculopathy Resolved Problems Problem Noted Date Diagnosed Date Resolved Date High risk medication use (Orencia IV) 06/04/2021 12/02/2022 Immunizations * Covid Pfizer primary monovalent 12+ yr 0.3mL Purple cap(Given 06/19/2020, 05/22/2020) Social History Tobacco Use Types Packs/Day Years [...] Mass Index 30.85 12/01/2023 8:45 AM CDT Medical Devices Implanted Type Area Manager Fiber Device Identifier Shelf Expiration Date Model / Serial / Lot Graft Bone Alfs + Dbm 5ml Ptty Implanted:Qty: 1 on 12/20/2017 by Easton Paula DO at [facility] N/A: Spine Lumbar [employer] 04/27/2019 [id number] / / [id number] Saxton Set Screw Implanted:Qty: 4 on 12/20/2017 by Easton Paula DO at [facility] N/A: Spine Lumbar [employer] [id number] / / 6.5x50mm Screw Implanted:Qty: 2 on 12/20/2017 by Easton Paula DO at [facility] N/A: Spine Lumbar [employer] [id number] / / 6.5x55mm Screw Implanted:Qty: 1 on 12/20/2017 by Easton Paula DO at [facility] N/A: Spine Lumbar [employer] [id number] / / 6.5x60mm Screw Implanted:Qty: 1 on 12/20/2017 by Easton Paula DO at [facility] N/A: Spine Lumbar [employer] [id number] / / 35mm Flavio Implanted:Qty: 1 on 12/20/2017 by Easton Paula DO at [facility] N/A: Spine Lumbar [employer] [id number] / / 40mm Flavio Implanted:Qty: 1 on 12/20/2017 by Easton Paula DO at [facility] N/A: Spine Lumbar [employer] [facility] [id number] / / Procedures * LAB MISC TEST(Performed 07/07/2022) * ERYTHROCYTE SEDIMENTATION RATE(Performed 06/04/2022) Performed for Rheumatoid arthritis of multiple sites with negative rheumatoid factor (HCC) * VECTRA DA DISEASE ACTIVITY(Performed 06/04/2022) Performed for Rheumatoid arthritis of multiple sites with negative rheumatoid factor (HCC) * LAB(Performed 05/26/2022) * LAB(Performed 04/03/2022) * LAB(Performed 01/31/2022) * LAB(Performed 10/22/2021) * LAB(Performed 10/22/2021) * LAB(Performed 10/22/2021) * LAB(Performed 10/22/2021) * LAB(Performed 05/28/2021) * BETA-2 GLYCOPROTEIN 1 ANTIBODY IGG(Performed 05/18/2021) * BETA-2 GLYCOPROTEIN 1 ANTIBODY IGM(Performed 05/18/2021) * CARDIOLIPIN ANTIBODY IGM(Performed 05/18/2021) * CARDIOLIPIN ANTIBODY IGG(Performed 05/18/2021) * LUPUS ANTICOAGULANT PANEL W RFLX(Performed 05/18/2021) * TSH(Performed 05/18/2021) * T4 FREE(Performed 05/18/2021) * CBC W AUTO DIFFERENTIAL(Performed 11/05/2020) * ERYTHROCYTE SEDIMENTATION RATE(Performed 11/05/2020) * CYCLIC CITRULLINATED PEPTIDE(CCP) AB IGG(Performed 11/05/2020) * C-REACTIVE PROTEIN(Performed 11/05/2020) * COMPREHENSIVE METABOLIC PANEL(Performed 11/05/2020) * CT ABDOMEN PELVIS OUTSIDE(Performed 06/24/2020) * MRI TOTAL SPINE OUTSIDE(Performed 06/07/2020) * MRI CERVICAL SPINE OUTSIDE(Performed 03/19/2020) * QUANTIFERON-TB GOLD PLUS 1-TUBE(Performed 02/06/2020) * ERYTHROCYTE SEDIMENTATION RATE(Performed 02/06/2020) * HEPATITIS SCREEN ACUTE(Performed 02/06/2020) * CT SINUS WO CONTRAST(Performed 04/27/2019) Performed for Sinusitis, unspecified chronicity, unspecified location * NC NASAL ENDOSCOPY,DX(Performed 04/04/2019) Performed for Sinusitis, unspecified chronicity, unspecified location * HEPATITIS B PANEL(Performed 07/26/2018) Performed for Screening for viral disease * XR KNEE LEFT 4VW OR MORE(Performed 07/12/2018) Performed for Pain * HEPATITIS C ANTIBODY(Performed 07/10/2018) Performed for Seropositive rheumatoid arthritis (HCC), High risk medications (not anticoagulants) long-term use * COMPREHENSIVE METABOLIC PANEL(Performed 07/10/2018) Performed for Seropositive rheumatoid arthritis (HCC), High risk medications (not anticoagulants) long-term use * CBC W AUTO DIFFERENTIAL(Performed 07/10/2018) Performed for Seropositive rheumatoid arthritis (HCC), High risk medications (not anticoagulants) long-term use * QUANTIFERON TB-GOLD(Performed 07/10/2018) Performed for Seropositive rheumatoid arthritis (HCC), High risk medications (not anticoagulants) long-term use * CYCLIC CITRUL PEPTIDE ANTIBODY IGG/IGA (CCP)(Performed 04/10/2018) Performed for Seropositive rheumatoid arthritis (HCC) * RHEUMATOID FACTOR BLOOD QUANTITATIVE(Performed 04/10/2018) Performed for Seropositive rheumatoid arthritis (HCC) * HLA TYPING B27(Performed 04/10/2018) Performed for Seropositive rheumatoid arthritis (HCC) * ERYTHROCYTE SEDIMENTATION RATE(Performed 04/10/2018) Performed for High risk medications (not anticoagulants) long-term use * C-REACTIVE PROTEIN(Performed 04/10/2018) Performed for High risk medications (not anticoagulants) long-term use * COMPREHENSIVE METABOLIC PANEL(Performed 04/10/2018) Performed for High risk medications (not anticoagulants) long-term use * CBC W AUTO DIFFERENTIAL(Performed 04/10/2018) Performed for High risk medications (not anticoagulants) long-term use * EUGENIE BLOOD SCREEN W/REFLEX TITER(Performed 04/10/2018) Performed for Seropositive rheumatoid arthritis (HCC) * EUGENIE PANEL COMPREHENSIVE(Performed 04/10/2018) Performed for Seropositive rheumatoid arthritis (HCC) * XR LUMBAR SPINE 2 OR 3VW(Performed 02/28/2018) Performed for Back pain, unspecified back location, unspecified back pain laterality, unspecified chronicity * LAB RESULTS ORDER(Performed 12/28/2017) * CARDIAC RHYTHM STRIP ORDER(Performed 12/27/2017) * OT EVAL AND TREAT(Performed 12/20/2017) * FL OSWALDO SURGERY LESS 60 MIN(Performed 12/20/2017) Performed for Other chronic back pain * FUSION TRANSFORAMINAL LUMBAR INTERBODY (TLIF)(Performed 12/20/2017) Performed for M48.062 * RAD OUTSIDE IMG IMPORT(Performed 12/13/2017) Performed for Pain * LAB RESULTS ORDER(Performed 11/23/2017) * LAB RESULTS ORDER(Performed 10/03/2017) * PAIN MANAGEMENT PROCEDURE TIME(Performed 09/13/2017) Performed for Lumbar radiculopathy * PAIN MANAGEMENT PROCEDURE TIME(Performed 08/16/2017) Performed for Lumbar radiculopathy * PAIN MANAGEMENT PROCEDURE TIME(Performed 07/26/2017) Performed for Lumbar radiculopathy * XR CERVICAL SPINE 4 OR 5VW(Performed 07/25/2017) Performed for Osteoarthritis of spine with radiculopathy, cervical region * IMAGING/RADIOLOGY/XRAY RESULTS ORDER(Performed 05/09/2017) * IMAGING/RADIOLOGY/XRAY RESULTS ORDER(Performed 05/09/2017) * CARDIAC RHYTHM STRIP ORDER(Performed 09/06/2013) * ECHOCARDIOGRAM 2D WITH DOPPLER(Performed 09/05/2013) Performed for Chest pain, SOB (shortness of breath) * NM MYOCARD PERF REST STRESS(Performed 09/05/2013) Performed for Chest pain, SOB (shortness of breath) * INFLUENZA A+B+RSV PCR PANEL(Performed 09/05/2013) Performed for SOB (shortness of breath) * RESPIRATORY PATHOGEN PANEL BY PCR(Performed 09/05/2013) Performed for SOB (shortness of breath) * CT CHEST W CONTRAST(Performed 09/05/2013) Performed for Chest pain, SOB (shortness of breath) * IMMUNOGLOBULINS IGG/IGM/IGA PANEL(Performed 09/05/2013) Performed for Asthma (HCC), Bronchiectasis (HCC) * LIPID PROFILE(Performed 09/05/2013) * COMPREHENSIVE METABOLIC PANEL(Performed 09/05/2013) * CBC W AUTO DIFFERENTIAL(Performed 09/05/2013) * TSH(Performed 09/04/2013) Performed for SOB (shortness of breath) * IGE BLOOD(Performed 09/04/2013) Performed for SOB (shortness of breath) * C-REACTIVE PROTEIN SENSITIVE(Performed 09/04/2013) Performed for SOB (shortness of breath) * ERYTHROCYTE SEDIMENTATION RATE(Performed 09/04/2013) Performed for SOB (shortness of breath) * BEDSIDE SPIROMETRY PRE AND POST BRONCHODILATOR(Performed 09/04/2013) Performed for SOB (shortness of breath) * D-DIMER(Performed 09/04/2013) * TROPONIN I(Performed 09/04/2013) * XR CHEST 2VW(Performed 09/04/2013) Performed for Chest pain * B-TYPE NATRIURETIC PEPTIDE(Performed 09/04/2013) * PT PTT PANEL(Performed 09/04/2013) * TROPONIN I(Performed 09/04/2013) * COMPREHENSIVE METABOLIC PANEL(Performed 09/04/2013) * CBC W AUTO DIFFERENTIAL(Performed 09/04/2013) * EKG 12-LEAD(Performed 09/04/2013) Performed for Chest pain * ENDOSCOPY, COLON, SCREENING(Performed 01/31/2012) * GROSS + MICRO EXAM(Performed 01/31/2012) * GROSS + MICRO EXAM(Performed 01/31/2012) Results * LAB MISC TEST (07/07/2022) Blood BLOOD SPECIMEN / Unknown Scanned Document LAB SEND OUT * VECTRA DA DISEASE ACTIVITY (06/04/2022 11:36 AM DESIGN EDITOR) Vectra Score 13 [facility] INSURANCE BILL Comment: Change in Score Multiple Vectra scores required for meaningful change calculationVectra Score Interpretation Patient has a Low Vectra Score and is at low risk for radiographic progression. Consider retesting periodically to ensure low level of inflammation or if clinical disease activity changes. Risk of Radiographic Progress 2 % [facility] INSURANCE BILL Comment:1-Year Risk of Radio graphic Progression Vectra(R) Level [facility] INSURANCE BILL Comment: Low Vectra Disease Activity Levels: High: 45 to 100 Moderate: 30 to 44 Low: 1 to 29 Test Description LAB [facility] INSURANCE BILL Comment: VECTRA SCORE DESCRIPTION Vectra Score measures the concentrations of 12 serum proteins. An algorithm is applied to these concentrations to calculate a disease activity score on a scale of 1 to 100. The Vectra Score is personalized based on the age, gender, and adiposity of the patient. RISK OF RADIOGRAPHIC PROGRESSION (RP): The risk of RP is shown as a function of Vectra Score. (see chart right). The definition of RP is a 1-year total Sharp score change of >5 units. Increased risk of RP means a greater chance of irreversible joint damage. Patient serostatus may affect the risk of radiographic progression. Thus, the actual risk of radiographic progression may be higher if this patient is seropositive and lower if this patient is seronegative. CHANGE IN SCORE DESCRIPTION Change in Score is assessed in relation to the Minimally Important Difference (MID) for Vectra. The MID for patients with a Moderate or High Vectra Score is 8.0. VECTRA SCORES OVER TIME Complete score history shown on last page. As of February 28, 2017 the Vectra Score is adjusted based on the age, gender and adiposity of the patient. This test was developed and its performance characteristics determined by [facility]. It has not been cleared or approved by the Food and Drug Administration. (C)2020 [employer]. All Rights Reserved. This document contains private and confidential health information protected by state and federal law. If you have received this document in error please call [phone]. V.1.12-16 BEBE Result 1.8 ug/mL [facility] INSURANCE BILL Comment: RA Range: (0.29-85) RA Percentile: 42% CRP Result 0.52 mg/L [facility] INSURANCE BILL Comment: RA Range: (0.19-92) RA Percentile: 9% VCAM-1 Result 0.72 ug/mL [facility] INSURANCE BILL Comment: RA Range: (0.39-1.2) RA Percentile: 66% IL-6 Result 1.8 pg/mL [facility] INSURANCE BILL Comment: RA Range: (2.5-200) RA Percentile: <1% TNF-RI Result 1.5 ng/mL [facility] INSURANCE BILL Comment: RA Range: (0.8-3.9) RA Percentile: 53% EGF Result 140 pg/mL [facility] INSURANCE BILL Comment: RA Range: (12-410) RA Percentile: 66% VEGF-A Result 700 pg/mL [facility] INSURANCE BILL Comment: RA Range: (75-790) RA Percentile: 96% Leptin Result 16 ng/mL [facility] INSURANCE BILL Comment: RA Range: (1.5-120) RA Percentile: 38% Resistin Result 5.1 ng/mL [facility] INSURANCE BILL Comment: RA Range: (3.5-21) RA Percentile: 14% MMP-1 Result 9.9 ng/mL [facility] INSURANCE BILL Comment: RA Range: (1.3-23) RA Percentile: 76% MMP3 Result 30 ng/mL [facility] INSURANCE BILL Comment: RA Range: (7.9-160) RA Percentile: 63% YKL-40 Result 65 ng/mL [facility] INSURANCE BILL Comment: RA Range: (22-540) RA Percentile: 41% Biomarker Comment: [facility] INSURANCE BILL Comment: These reported analyte values and reference ranges are intended for use in the generation of the Vectra score only. ??These results should not be used interchangeably with results generated by different methodologies. Footnote/History [facility] INSURANCE BILL Comment: RA Range: These 95% reference ranges were established from 325,781 patient samples tested at [facility]. RA Percentile: Subject's biomarker level relative to levels in RA patient specimens from which the RA ranges were determined Complete Vectra Score History: Clinical Validation [facility] INSURANCE BILL Comment: Please note: The individual biomarker results, which are expressed to two significant figures, are required inputs into the algorithm used to calculate the Vectra Score. Clinical interpretation of individual biomarker levels which have different weights in the Vectra algorithm, has not been established. FASTING Blood BLOOD SPECIMEN / Unknown 06/04/2022 11:36 AM DESIGN EDITOR 06/04/2022 Narrative Resulting Agency Comment Lab Testing performed at: [facility] [address] [place] [address] ??[facility] [id number] Tuan Poon DO LAB - SEROLOGY ORDER JACQUIE Performing Organization Address City/[facility] Co de Phone Number [facility] INSURANCE BILL [address] [place] [address] * SED RATE AUTO (ESR) (06/04/2022 11:36 AM DESIGN EDITOR) Only the most recent of5 resultswithin the time period is included. Erythrocyte Sedimentation Rate Westergren 2 0 - 30 mm/hr [facility] Comment:FASTING Blood BLOOD SPECIMEN / Unknown 06/04/2022 11:36 AM DESIGN EDITOR 06/04/2022 Narrative Resulting Agency Comment Lab Testing performed at: [facility] [address] [facility] ??[facility] [id number] Tuan Poon DO LAB - HEMATOLOGY ORD ERABLES Performing Organization Address [facility] Co de Phone Number [employer] INSURANCE BILL [address] [place] [address] * LAB (05/26/2022) Only the most recent of8 resultswithin the time period is included. Scanned Document SCANNING ONLY * BETA-2 GLYCOPROTEIN 1 ANTIBODY IGG (05/18/2021 2:57 PM DESIGN EDITOR) Beta-2 Glycoprotein I Antibody IgG <2.0 U/mL [facility] Comment: Value ?Interpretation ----- ? < 20.0 ? Antibody not detected > or = 20.0 ?Antibody detected ?? The antiphospholipid antibody syndrome (APS) is a clinical-pathologic correlation that includes a clinical event (e.g. arterial or venous thrombosis, morbidity) and persistent positive antiphospholipid antibodies (IgM or IgG GOSIA >40 MPL/GPL-U/mL, IgM or IgG anti-b2GPI antibodies or a lupus anticoagulant). International consensus guidelines for APS suggest waiting at least 12 weeks before retesting to confirm antibody persistence. ??The [facility] Lup[facility] immunological classification criteria for systemic lupus erythematosus (SLE) include testing for isotype IgA, which has yet to be incorporated into APS criteria. Low level antiphospholipid antibodies may sometimes be detected in the setting of infection, drug therapy or aging. For additional information, please refer to http://education.Rezzcard/faq/EMU828 (This link is being provided for informational/ educational purposes only.) Test Performed at: [facility] [address], [place] ??[address] MARY DRAPER MD 05/18/2021 2:57 PM DESIGN EDITOR 05/18/2021 3:01 PM DESIGN EDITOR Tuan Poon DO LAB - SEROLOGY ORDER JACQUIE [employer] [address] [place] [address] * BETA-2 GLYCOPROTEIN 1 ANTIBODY IGM (05/18/2021 2:57 PM DESIGN EDITOR) Beta-2 Glycoprotein I Antibody IgM <2.0 U/mL [facility] Comment: Value ?Interpretation ----- ? < 20.0 ? Antibody not detected > or = 20.0 ?Antibody detected ?? The antiphospholipid antibody syndrome (APS) is a clinical-pathologic correlation that includes a clinical event (e.g. arterial or venous thrombosis, morbidity) and persistent positive antiphospholipid antibodies (IgM or IgG GOSIA >40 MPL/GPL-U/mL, IgM or IgG anti-b2GPI antibodies or a lupus anticoagulant). International consensus guidelines for APS suggest waiting at least 12 weeks before retesting to confirm antibody persistence. ??The [facility]up[facility] immunological classification criteria for systemic lupus erythematosus (SLE) include testing for isotype IgA, which has yet to be incorporated into APS criteria. Low level antiphospholipid antibodies may sometimes be detected in the setting of infection, drug therapy or aging. For additional information, please refer to http://education.Rezzcard/faq/AZD024 (This link is being provided for informational/ educational purposes only.) Test Performed at: [facility] [address] ??[address] MARY DRAPER MD 05/18/2021 2:57 PM DESIGN EDITOR 05/18/2021 3:01 PM DESIGN EDITOR Tuan Poon DO LAB - SEROLOGY ORDER JACQUIE [employer] [address] [place] [address] * CARDIOLIPIN ANTIBODY IGM (05/18/2021 2:57 PM DESIGN EDITOR) Pathologist [facility] Cardiolipin Antibody IgM <2.0 MPL-U/mL [facility] Comment: Value ?Interpretation ----- ? < 20.0 ? Antibody not detected > or = 20.0 ?Antibody detected The antiphospholipid antibody syndrome (APS) is a clinical-pathologic correlation that includes a clinical event (e.g. arterial or venous thrombosis, morbidity) and persistent positive antiphospholipid antibodies (IgM or IgG GOSIA >40 MPL/GPL-U/mL, IgM or IgG anti-b2GPI antibodies or a lupus anticoagulant). International consensus guidelines for APS suggest waiting at least 12 weeks before retesting to confirm antibody persistence. ??The [facility] Lup[facility] immunological classification criteria for systemic lupus erythematosus (SLE) include testing for isotype IgA, which has yet to be incorporated into APS criteria. Low level antiphospholipid antibodies may sometimes be detected in the setting of infection, drug therapy or aging. For additional information, please refer to http://education.Rezzcard/faq/EHB289 (This link is being provided for informational/ educational purposes only.) Test Performed at: [facility] [address] ??[address] MARY DRAPER MD 05/18/2021 2:57 PM DESIGN EDITOR 05/18/2021 3:01 PM DESIGN EDITOR Tuan Poon DO LAB - SEROLOGY ORDER JACQUIE [employer] [address] [place] [address] * CARDIOLIPIN ANTIBODY IGG (05/18/2021 2:57 PM DESIGN EDITOR) Pathologist [facility] Cardiolipin Antibody IgG <2.0 GPL-U/mL [facility] Comment: Value ?Interpretation ----- ? < 20.0 ? Antibody not detected > or = 20.0 ?Antibody detected The antiphospholipid antibody syndrome (APS) is a clinical-pathologic correlation that includes a clinical event (e.g. arterial or venous thrombosis, morbidity) and persistent positive antiphospholipid antibodies (IgM or IgG GOSIA >40 MPL/GPL-U/mL, IgM or IgG anti-b2GPI antibodies or a lupus anticoagulant). International consensus guidelines for APS suggest waiting at least 12 weeks before retesting to confirm antibody persistence. ??The [facility] Lup[facility] International [facility] immunological classification criteria for systemic lupus erythematosus (SLE) include testing for isotype IgA, which has yet to be incorporated into APS criteria. Low level antiphospholipid antibodies may sometimes be detected in the setting of infection, drug therapy or aging. For additional information, please refer to http://[employer].Rezzcard/faq/QGQ807 (This link is being provided for informational/ educational purposes only.) Test Performed at: [facility] [place] [address] [place], [place] ??[address] MARY DRAPER MD 05/18/2021 2:57 PM DESIGN EDITOR 05/18/2021 3:01 PM DESIGN EDITOR Tuan Poon DO LAB - SEROLOGY ORDER JACQUIE Performing Organization Address [facility] de Phone Number [address] [address] * LUPUS ANTICOAGULANT PANEL W RFLX (05/18/2021 2:57 PM DESIGN EDITOR) Lupus Anticoagulant NOT DETECTED [facility] Comment: A Lupus Anticoagulant is not detected. For more information on this test, go to: http://[employer].Rezzcard/faq/PHF90x5 (This link is being provided for informational/ educational purposes only.) This interpretation is based on the following test results: PTT LA Screen 36 < OR = 40 sec [facility] dRVVT Screen 40 < OR = 45 sec [facility] Comment: Test Performed at: [facility] [place] [address] [place], [place] ??[address] MARY DRAPER MD 05/18/2021 2:57 PM DESIGN EDITOR 05/18/2021 3:01 PM DESIGN EDITOR Tuan Poon DO LAB - HEMATOLOGY ORD ERABLES Performing Organization Address [facility] de Phone Number [facility] [address] [place] [address] * (ABNORMAL) TSH (05/18/2021 2:57 PM DESIGN EDITOR) Only the most recent of2 resultswithin the time period is included. TSH 4.95(H) 0.40 - 4.50 mIU/L [facility] Comment: Test Performed at: [facility] ??[phone] SHEILA PÉREZ DO,MPH 05/18/2021 2:57 PM DESIGN EDITOR 05/18/2021 3:01 PM DESIGN EDITOR Tuan Poon DO LAB - CHEMISTRY DORIAN GONZÁLES Performing Organization Address [facility] Co de Phone Number [facility] [address] [place] [address] * T4 FREE (05/18/2021 2:57 PM DESIGN EDITOR) Pathologist [facility] T4 Free 1.0 0.8 - 1.8 ng/dL [facility] Comment: Test Performed at: [facility] [address] ??[phone] SHEILA PÉREZ DO,MPH 05/18/2021 2:57 PM DESIGN EDITOR 05/18/2021 3:01 PM DESIGN EDITOR Tuan Poon DO LAB - CHEMISTRY DORIAN GONZÁLES Performing Organization Address [facility] Co de Phone Number [facility] [address] [place] [address] * C-REACTIVE PROTEIN (11/05/2020 3:48 PM CDT) Only the most recent of2 resultswithin the time period is included. Pathologist [facility] C-Reactive Protein 0.3 <8.0 mg/L [facility] Comment: Test Performed at: [facility] [address] ??[phone] SHEILA PÉREZ DO,MPH 11/05/2020 3:48 PM CDT 11/05/2020 3:49 PM CDT Narendra Spencer MD LAB - CHEMISTRY OR DERABLES Performing Organization Address [facility] Co de Phone Number [facility] [address] [place] [address] * (ABNORMAL) CYCLIC CITRULLINATED PEPTIDE(CCP) AB IGG (11/05/2020 3:48 PM CDT) Pathologist [facility] Cyclic Citrullinated Peptide Antibody IgG 45(H) UNITS [facility] Comment: Reference Range Negative: ?<20 Weak Positive: ? 20-39 Moderate Positive: ?? 40-59 Strong Positive: ? >59 Test Performed at: [facility] [address] [place] [address] ??[phone] SHEILA PÉREZ DO,MPH 11/05/2020 3:48 PM CDT 11/05/2020 3:49 PM CDT Narendra Spencer MD LAB - CHEMISTRY OR DERABLES [facility] [address] [place] [address] * (ABNORMAL) CBC WITH DIFFERENTIAL (11/05/2020 3:48 PM CDT) Only the most recent of5 resultswithin the time period is included. Pathologist [facility] White Blood Cell Count 6.5 3.8 - 10.8 Thousand/u L [facility] RBC 4.90 4.20 - 5.80 Million/uL [facility] Hemoglobin 15.0 13.2 - 17.1 g/dL [facility] Hematocrit 45.2 38.5 - 50.0 % [facility] MCV 92.2 80.0 - 100.0 fL [facility] MCH 30.6 27.0 - 33.0 pg [facility] MCHC 33.2 32.0 - 36.0 g/dL [facility] RDW 13.0 11.0 - 15.0 % [facility] Platelet Count 258 140 - 400 Thousand/u L [facility] MPV 9.0 7.5 - 12.5 fL [facility] Neutrophil Absolute 3972 1500 - 7800 cells/uL [facility] Lymphocytes Absolute 1892 850 - 3900 cells/uL [facility] Absolute Monocytes 605 200 - 950 cells/uL [facility] Eosinophils Absolute 13(L) 15 - 500 cells/uL [facility] Basophils Absolute 20 0 - 200 cells/uL [facility] Granulocytes % 61.1 % [facility] Lymphocytes % 29.1 % [facility] Monocytes % 9.3 % [facility] Eosinophils % 0.2 % [facility] Basophils % 0.3 % [facility] Comment: Test Performed at: [place], [place] ??[phone] SHEILA PÉREZ DO,MPH 11/05/2020 3:48 PM CDT 11/05/2020 3:49 PM CDT Narendra Spencer MD LAB - HEMATOLOGY O RDERABLES [facility] [address] [place] [address] * (ABNORMAL) COMPREHENSIVE METABOLIC PANEL (11/05/2020 3:48 PM CDT) Only the most recent of5 resultswithin the time period is included. Glucose 99 65 - 99 mg/dL [facility] Comment: ? Fasting reference interval BUN 32(H) 7 - 25 mg/dL [facility] Creatinine 1.36(H) 0.70 - 1.25 mg/dL [facility] Comment: For patients >49 years of age, the reference limit for Creatinine is approximately 13% higher for people identified as -Australian. eGFR by MDRD 53(L) > OR = [...] 46 U/L [facility] Comment: Test Performed at: [facility] [address] [place], [place] ??[phone] SHEILA PÉREZ DO,MPH 11/05/2020 3:48 PM CDT 11/05/2020 3:49 PM CDT Narendra Spencer MD LAB - CHEMISTRY OR DERABLES [facility] [address] [place] [address] * CT ABDOMEN PELVIS OUTSIDE (06/24/2020) Anatomical Region Laterality Modality Other Narendra Spencer MD IMAGING * MRI TOTAL SPINE OUTSIDE (06/07/2020) Anatomical Region Laterality Modality Other Narendra Spencer MD IMAGING * MRI CERVICAL SPINE OUTSIDE (03/19/2020) Anatomical Region Laterality Modality Other Narendra Spencer MD IMAGING * QUANTIFERON-TB GOLD PLUS 1-TUBE (02/06/2020 3:20 PM DESIGN EDITOR) [facility] QuantiFERON TB Gold Plus NEGATIVE NEGATIVE [facility] Comment: Negative test result. M. tuberculosis complex infection unlikely. NIL 0.16 IU/mL [facility] MITOGEN MINUS NIL RESULT >10.00 IU/mL [facility] TB1-NIL <0.00 IU/mL [facility] TB2-NIL <0.00 IU/mL [facility] Comment: The Nil tube value reflects the background interferon gamma immune response of the patient's blood sample. This value has been subtracted from the patient's displayed TB and Mitogen results. Lower than expected results with the Mitogen tube prevent false-negative Quantiferon readings by detecting a patient with a potential immune suppressive condition and/or suboptimal pre-analytical specimen handling. The TB1 Antigen tube is coated with the M. tuberculosis-specific antigens designed to elicit responses from TB antigen primed CD4+ helper T-lymphocytes. The TB2 Antigen tube is coated with the M. tuberculosis-specific antigens designed to elicit responses from TB antigen primed CD4+ helper and CD8+ cytotoxic T-lymphocytes. For additional information, please refer to https://education.[employer]Secure[employer]aters/faq/KXQ699 (This link is being provided for informational/ educational purposes only.) Test Performed at: [facility] [address] [address] [place], [place] ??[phone] SHEILA PÉREZ DO,MPH 02/06/2020 3:20 PM DESIGN EDITOR 02/06/2020 3:21 PM DESIGN EDITOR Narendra Spencer MD LAB - CHEMISTRY OR DERABLES Performing Organization Address [facility] Phone Number [employer] [address] [place] [address] * HEPATITIS SCREEN ACUTE (02/06/2020 3:20 PM DESIGN EDITOR) Hepatitis A Virus Antibody IgM NON-REACT LNIDA NON-REACT LINDA [facility] Comment: For additional information, please refer to http://[employer].Rezzcard/faq/HIZ319 (This link is being provided for informational/ [...] a test for HCV RNA (test code 25755) is suggested. For additional information please refer to http://[employer].Rezzcard/faq/PBE48d3 (This link is being provided for informational/ educational purposes only.) Test Performed at: [facility] [address] [place], [place] ??[phone] SHEILA PÉREZ DO,MPH 02/06/2020 3:20 PM DESIGN EDITOR 02/06/2020 3:21 PM DESIGN EDITOR Narendra Spencer MD LAB - CHEMISTRY OR DERABLES Performing Organization Address [facility] [place] [address] * CT SINUS WO CONTRAST (04/27/2019 9:45 AM DESIGN EDITOR) Anatomical Region Laterality Modality Head Computed Tomogra phy 04/27/2019 9:49 AM DESIGN EDITOR Impressions 04/27/2019 12:25 PM DESIGN EDITOR IMPRESSION: No CT evidence of sinusitis. Dictated by Cristobal Elliott M.D. (business services vice president). Dr. JAYDA Carcamo have personally reviewed and interpreted this examination/study. This report was electronically signed by JAYDA PAN ??on 04/27/2019 12:25 PM . Narrative 04/27/2019 12:25 PM DESIGN EDITOR EXAMINATION: CT sinus without contrast HISTORY: J32.9: Sinusitis, unspecified chronicity, unspecified location, history of dental infections. TECHNIQUE: CT of the sinuses without contrast was obtained according to standard protocol. Comparison: None FINDINGS: The paranasal sinuses are clear. Bilateral sinus outflow tracts (including frontal recesses, maxillary ostium, infundibulum, semilunar hiatus, middle meatus, sphenoethmoidal recesses and ostium) are patent. Paranasal sinus bony sumner are intact without osteitis. The nasal nasal cavity is aerated without polyps or masses. The nasal septum is deviated to the right. Procedure Note Jayda Pan MD - 04/27/2019 EXAMINATION: CT sinus without contrast HISTORY: J32.9: Sinusitis, unspecified chronicity, unspecified location, history of dental infections. TECHNIQUE: CT of the sinuses without contrast was obtained according to standard protocol. Comparison: None FINDINGS: The paranasal sinuses are clear. Bilateral sinus outflow tracts (including frontal recesses, maxillary ostium, infundibulum, semilunar hiatus, middle meatus, sphenoethmoidal recesses and ostium) are patent. Paranasal sinus bony sumner are intact without osteitis. The nasal nasal cavity is aerated without polyps or masses. The nasal septum is deviated to the right. IMPRESSION: No CT evidence of sinusitis. Dictated by Cristobal Elliott M.D. (business services vice president). Dr. JAYDA Carcamo have personally reviewed and interpreted this examination/study. This report was electronically signed by JAYDA PAN on 04/27/2019 12:25 PM . Estella Yoo MD CT ORDERABLES * NC NASAL ENDOSCOPY,DX (04/04/2019 3:16 PM DESIGN EDITOR) Narrative Jordan Rincon MD - 04/04/2019 3:16 PM DESIGN EDITOR Jordan Rincon MD ? 04/04/2019 ??3:16 PM Procedure: Rigid Nasal Endoscopy Anesthesia: Bilateral Nasal Cavities sprayed with Lidocaine and Neosynephrine Detail: ??Rigid nasal endoscopy performed bilaterally. ??Septum was relatively midline. ??We visualized on both sides and the middle meatus is normal with no polyps and no edema. ??Also looked in the nasopharynx which also was normal. ??Examined extensively. Jordan Rincon MD PROCEDURE/MINOR SHANTANU GICAL ORDERABLES * HEPATITIS B PANEL (07/26/2018 11:46 AM CDT) HBsAb Non Reactive Non Reactive 07/26/2018 2:09 PM CDT [facility] HBsAg Non Reactive Non Reactive 07/26/2018 2:09 PM CDT [facility] HBc Antibody IgM Non Reactive Non Reactive 07/26/2018 2:09 PM CDT [facility] Blood BLOOD SPECIMEN / Unknown Venipuncture / Unknown 07/26/2018 11:46 AM CDT 07/26/2018 11:57 AM CDT Narendra Spencer MD LAB - CHEMISTRY OR DERABLES Performing Organization Address City/State/[facility] Co de Phone Number [facility] [address] [place] [address] * XR KNEE LEFT 4VW OR MORE (07/12/2018 11:57 AM CDT) Anatomical Region Laterality Modality Lower Extremity Radiographic Kerrie ging 07/12/2018 12:2 4 PM CDT Impressions 07/12/2018 12:24 PM CDT Moderate to severe medial compartment predominant left knee osteoarthritis. Reading Radiologist: Vahid Alexander MD on 07/12/2018 at 12:24 PM Narrative 07/12/2018 12:24 PM CDT Examination: Left knee 4 views History: Left knee pain Findings: 4 views of the left knee were performed without comparison. There is moderate to severe medial compartment predominant left knee osteoarthritis. There is no left knee joint effusion. There is no acute fracture. Procedure Note Vahid Alexander MD - 07/12/2018 Examination: Left knee 4 views History: Left knee pain Findings: 4 views of the left knee were performed without comparison. There is moderate to severe medial compartment predominant left knee osteoarthritis. There is no left knee joint effusion. There is no acute fracture. IMPRESSION Moderate to severe medial compartment predominant left knee osteoarthritis. Reading Radiologist: Vahid Alexander MD on 07/12/2018 at 12:24 PM Amadeo Smith MD DIAGNOSTIC IMAGING ORDERABLES * HEPATITIS C ANTIBODY (07/10/2018 10:15 AM CDT) Pathologist [facility] Hepatitis C Antibody Non Reactive Non Reactive [facility] INSURANCE BILL Comment:FASTING Blood BLOOD SPECIMEN / Unknown 07/10/2018 10:15 AM CDT 07/10/2018 Narrative Resulting Agency Comment [address] ??[facility] [phone] Narendra Spencer MD LAB - CHEMISTRY OR DERABLES [facility] INSURANCE BILL [address] [place] [address] * QUANTIFERON TB-GOLD (07/10/2018 10:14 AM CDT) Pathologist [facility] QuantiFERON Incubation Incubation performed. [facility] INSURANCE BILL QuantiFERON Criteria [facility] INSURANCE BILL Comment: The QuantiFERON-TB Gold Plus result is determined by subtracting the Nil value from either TB antigen (Ag) tube. The mitogen tube serves as a control for the test. QuantiFERON TB1 Ag Value 0.03 IU/mL [facility] INSURANCE BILL QuantiFERON TB2 Ag Value 0.04 IU/mL [facility] INSURANCE BILL QuantiFERON Nil Value 0.04 IU/mL [facility] INSURANCE BILL QuantiFERON Mitogen Value >10.00 IU/mL [facility] INSURANCE BILL Comment:FASTING QuantiFERON-TB Gold Plus Negative Negative [facility] INSURANCE BILL Comment:FASTING Blood BLOOD SPECIMEN / Unknown 07/10/2018 10:14 AM CDT 07/10/2018 Narrative Resulting Agency Comment Lab Testing performed at: [facility] [address] [facility] ??[facility] [phone] Narendra Spencer MD LAB - CHEMISTRY OR DERABLES [facility] INSURANCE BILL [address] [place] [address] * (ABNORMAL) CYCLIC CITRUL PEPTIDE ANTIBODY IGG/IGA (CCP) (04/10/2018 11:21 AM DESIGN EDITOR) CCP Antibodies IgG/IgA 58(H) 0 - 19 [facility] Comment: ? Negative ? <20 ? Weak positive ?20 - 39 ? Moderate positive ??40 - 59 ? Strong positive ?>59 FASTING Blood BLOOD SPECIMEN / Unknown 04/10/2018 11:21 AM DESIGN EDITOR 04/10/2018 Narrative Resulting Agency Comment [address] ??[facility] [phone] Narendra Spencer MD LAB - SEROLOGY ORD ERABLES [facility] INSURANCE BILL [address] [place] [address] * EUGENIE PANEL COMPREHENSIVE (04/10/2018 11:21 AM DESIGN EDITOR) Anti-dsDNA Quantitative <1 0 - 9 IU/mL [facility] INSURANCE BILL Comment: ?Negative ?<5 ?Equivocal ??5 - 9 ?Positive ?>9 CAR REPAIR SUPERVISOR Antibody 0.3 0.0 - 0.9 AI [facility] INSURANCE BILL Owens (HAILY) Antibody <0.2 0.0 - 0.9 AI [facility] INSURANCE BILL Antiscleroderma-70 Antibody <0.2 0.0 - 0.9 AI [facility] INSURANCE BILL Sjogren's Antibodies (SSA) <0.2 0.0 - 0.9 AI [facility] INSURANCE BILL Sjogren's Antibodies (SSB) <0.2 0.0 - 0.9 AI [facility] INSURANCE BILL Antichromatin Antibodies <0.2 0.0 - 0.9 AI [facility] INSURANCE BILL Ariadne-1 Antibody <0.2 0.0 - 0.9 AI [facility] INSURANCE BILL Centromere B Antibody <0.2 0.0 - 0.9 AI [facility] INSURANCE BILL See Below [facility] INSURANCE BILL Comment: Autoantibody ? Disease Association ?Condition ?Frequency ? --------- Antinuclear Antibody, ?SLE, mixed connective Direct (EUGENIE-D) ? tissue diseases ? --------- dsDNA ?SLE ?40 - 60% ? --------- Chromatin ?Drug induced SLE ?90% ? SLE ?48 - 97% ? --------- SSA (Ro) ? SLE ?25 - 35% ? Sjogren's Syndrome ? 40 - 70% ? Lupus ? 100% ? --------- SSB (La) ? SLE ? 10% ? Sjogren's Syndrome ?30% ?--------- Sm (anti-Owens) ?SLE ?15 - 30% ?--------- CAR REPAIR SUPERVISOR ?Mixed Connective Tissue ? Disease ? 95% (U1 nRNP, ?SLE ?30 - 50% anti-ribonucleoprotein) ??Polymyositis and/or ? Dermatomyositis ? 20% ? --------- Scl-70 (antiDNA ?Scleroderma (diffuse) ?20 - 35% topoisomerase) ? Crest ? 13% ? --------- Ariadne-1 ? Polymyositis and/or ? Dermatomyositis ?20 - 40% ? --------- Centromere B ? Scleroderma - Crest ? variant ? 80% FASTING Blood BLOOD SPECIMEN / Unknown 04/10/2018 11:21 AM DESIGN EDITOR 04/10/2018 Narrative Resulting Agency Comment [facility] [address] [facility] ??[facility] [phone] Narendra Spencer MD LAB - SEROLOGY ORD ERABLES Performing Organization Address [facility] de Phone Number [facility] INSURANCE BILL [address] [place] [address] * RHEUMATOID FACTOR BLOOD QUANTITATIVE (04/10/2018 11:21 AM DESIGN EDITOR) Rheumatoid Factor <10 <15 IU/mL [facility] INSURANCE BILL Comment:FASTING Blood BLOOD SPECIMEN / Unknown 04/10/2018 11:21 AM DESIGN EDITOR 04/10/2018 Narrative Resulting Agency Comment [address] ??[facility] [phone] Narendra Spencer MD LAB - CHEMISTRY OR DERABLES Performing Organization Address [facility] Phone Number [facility] INSURANCE BILL [address] [place] [address] * EUGENIE BLOOD SCREEN W/REFLEX TITER (04/10/2018 11:21 AM DESIGN EDITOR) EUGENIE Negative Negative [facility] INSURANCE BILL Comment:FASTING Blood BLOOD SPECIMEN / Unknown 04/10/2018 11:21 AM DESIGN EDITOR 04/10/2018 Narrative Resulting Agency Comment [address] ??[facility] [phone] Narendra Spencer MD LAB - CHEMISTRY OR DERABLES Performing Organization Address [facility] de Phone Number [facility] INSURANCE BILL [address] [place] [address] * HLA TYPING B27 (04/10/2018 11:21 AM DESIGN EDITOR) HLA-B27 Negative [facility] INSURANCE BILL Comment: HLA-B*27 Negative B27 allele interpretation for all loci based on IMGT/HLA database version 3.33.0 This test was developed and its performance characteristics determined by [facility]. ??It has not been cleared or approved by the Food and Drug Administration. [facility] CLIA ID Number [id number] ? . This test was performed using PCR (Polymerase Chain Reaction)/SSOP (Sequence Specific Oligonucleotide Probes) technique. ??SBT (Sequence Based Typing) and/or SSP (Sequence Specific Primers) may be used as supplemental methods when necessary. ??Please contact [facility] Customer Service at if you have any questions. ? . Director of [facility] Laboratory Dr Cameron Martinez, PhD FASTING Blood BLOOD SPECIMEN / Unknown 04/10/2018 11:21 AM DESIGN EDITOR 04/10/2018 Narrative Resulting Agency Comment [facility] [address] [facility] ??[facility] [phone] Narendra Spencer MD LAB - CHEMISTRY OR DERABLES [facility] INSURANCE BILL [address] [place] [address] * XR LUMBAR SPINE 2 OR 3VW (02/28/2018 12:15 PM DESIGN EDITOR) Anatomical Region Laterality Modality Spine Radiographic Kerrie ging 02/28/2018 12:4 4 PM DESIGN EDITOR Impressions 02/28/2018 1:28 PM DESIGN EDITOR 1. POSTERIOR FUSION L4-5. 2. SCOLIOSIS. 3. DEGENERATIVE CHANGES. Edited by Jackie Neumann on 02/28/2018 12:45 PM Reading Radiologist: Adrian Danielle MD on 02/28/2018 at 1:28 PM Narrative 02/28/2018 1:28 PM DESIGN EDITOR LUMBAR SPINE 3 VIEWS INDICATION: Low back pain. FINDINGS: Three views of the lumbar spine show posterior fusion of L4-5 with bipedicle screws and metallic hardware. Endplate degenerative changes and bony demineralization are present. There is intervertebral disc space narrowing of L1-2 and L2-3. Left convex lumbar scoliosis is present. Procedure Note Adrian Danielle MD - 02/28/2018 LUMBAR SPINE 3 VIEWS INDICATION: Low back pain. FINDINGS: Three views of the lumbar spine show posterior fusion of L4-5 with bipedicle screws and metallic hardware. Endplate degenerative changes and bony demineralization are present. There is intervertebral disc space narrowing of L1-2 and L2-3. Left convex lumbar scoliosis is present. IMPRESSION 1. POSTERIOR FUSION L4-5. 2. SCOLIOSIS. 3. DEGENERATIVE CHANGES. Edited by Jackie Neumann on 02/28/2018 12:45 PM Reading Radiologist: Adrian Danielle MD on 02/28/2018 at 1:28 PM Easton Chai DO DIAGNOSTIC IMAGING O RDERABLES * LAB RESULTS ORDER (12/28/2017) Only the most recent of3 resultswithin the time period is included. Scanned Document LAB - THERAPEUTIC DR UG MONITORING ORDERABLES * CARDIAC RHYTHM STRIP ORDER (12/27/2017 2:14 AM CDT) Only the most recent of2 resultswithin the time period is included. Narrative 12/27/2017 2:14 AM CDT Ordered by an unspecified provider. Scanned Document CARDIAC SERVICES ORD ERABLES * FL OSWALDO SURGERY LESS 60 MIN (12/20/2017 1:46 PM CDT) Anatomical Region Laterality Modality Radiographic Kerrie ging 12/20/2017 1:50 PM CDT Narrative 12/20/2017 1:47 PM CDT Fluoroscopy was provided. A radiologist was not present. Edited by Jackie Neumann on 12/20/2017 1:53 PM Reading Radiologist: Adrian Danielle MD on 12/20/2017 at 2:03 PM Procedure Note Adrian Danielle MD - 12/20/2017 Fluoroscopy was provided. A radiologist was not present. Edited by Jackie Neumann on 12/20/2017 1:53 PM Reading Radiologist: Adrian Danielle MD on 12/20/2017 at 2:03 PM Easton Paula DO FLUOROSCOPY ORDERABL ES * RAD OUTSIDE IMG IMPORT (12/13/2017 9:48 AM CDT) Easton Paula DO DIAGNOSTIC IMAGING O RDERABLES [facility] [address] [place] [address] * PAIN MANAGEMENT PROCEDURE TIME (09/13/2017 10:28 AM CDT) Only the most recent of3 resultswithin the time period is included. Anatomical Region Laterality Modality Radio Fluoroscop y Narrative 09/13/2017 12:00 PM CDT Sandhya Goldman, DO ? 09/13/2017 ??9:47 AM Transforaminal Lumbar Epidural and Nerve Root Steroid Injection on Right L4 and L5 Level(s) Dx: ??M54.16 - Lumbar Radiculopathy Consent: The patient was identified in the holding area and the operative permit was explained and signed. I have discussed with the patient the risks, benefits, side effects and complications of a fluoroscopically guided transforaminal lumbar nerve root steroid injection. I have answered the patient's questions regarding the procedure and have given the patient the opportunity to refuse the procedure. I also have discussed alternative methods of treatment. The patient stated understanding of the procedure and wished to proceed with a fluoroscopically guided transforaminal lumbar nerve root steroid injection. Monitoring: The patient was taken to the fluoroscopic suite and placed on a C-arm table in the prone position. Noninvasive blood pressure, pulse oximetry, and an EKG tracing were used to monitor the patient continuously throughout the procedure. A nurse was in attendance for the duration of the procedure to carefully monitor the patient. Please refer to the nursing record for vital sign documentation and for any doses of sedatives and medications. I was present and gave the order for any medications given to the patient. Preparation: Chloroprep preparation was performed twice, then sterile drapes were applied to the lower region of the back. Procedure: The procedure was performed at the above mentioned level(s).The C-arm was positioned in the oblique view until the pedicle and articulating processes were clearly visible. Using fluoroscopic guidance, a 22 gauge 3.5 inch needle was placed on the six o'clock position of the pedicle. The needle was then slowly walked off the lamina into the nerve root foramen. A lateral flouroscopic projection showed the needle tip entering the superior posterior aspect of the respective intervertebral foramen. Using AP fluoroscopic projection, 0.4 ml of Omnipaque (240mg/ml) was injected through the needle and a neurogram was produced. There was clear dye spread through the nerve root sheath and into the epidural space. There was no cerebrospinal fluid or blood aspirated from the needle. A preservative free solution of 10 mg decadron and 2 ml of 0.5% Lidocaine was injected at each level injected. There were no signs or symptoms of intrathecal or intravascular injection. The needle was removed intact. ??The patient tolerated the procedure well and there were no complications. Recovery: The patient was taken to the recovery area where they remained in stable condition. Postprocedure instructions were given to the patient and a follow up appointment was confirmed. The patient was also discharged with information on how to reach the clinic or international logistics analyst physician at anytime for questions or complaints. Hector Bocanegra MD DIAGNOSTIC IMAGING O RDERABLES * XR CERVICAL SPINE 4 OR 5VW (07/25/2017 1:25 PM CDT) Anatomical Region Laterality Modality Spine Radiographic Kerrie ging 07/25/2017 1:29 PM CDT Impressions 07/25/2017 1:30 PM CDT Degenerative changes. Narrative 07/25/2017 1:30 PM CDT Cervical spine multiple views. HISTORY: Osteoarthritis. AP and lateral and oblique views show normal vertebral heights. There is interspace height loss at multiple levels with sclerosis present on vertebral bodies. Alignment is maintained. Neural foramina are patent. The odontoid process is normal. Procedure Note Marcellus Hardin MD - 07/25/2017 Cervical spine multiple views. HISTORY: Osteoarthritis. AP and lateral and oblique views show normal vertebral heights. There is interspace height loss at multiple levels with sclerosis present on vertebral bodies. Alignment is maintained. Neural foramina are patent. The odontoid process is normal. IMPRESSION Degenerative changes. Hector Bocanegra MD DIAGNOSTIC IMAGING O RDERABLES * IMAGING RADIOLOGY XRAY RESULTS ORDER (05/09/2017) Only the most recent of2 resultswithin the time period is included. Anatomical Region Laterality Modality Other Scanned Document IMAGING * ECHOCARDIOGRAM 2D WITH DOPPLER (09/05/2013 1:10 PM CDT) 09/05/2013 1:10 PM CDT Narrative [facility] - 09/05/2013 5:01 PM CDT Transthoracic Echocardiogram 2D, M-mode, Doppler, and Color Doppler Patient: JIN GODINEZ MR number: [id number] Height: 70 in Weight: 274.3 lb BSA: 2.39 m?? Study date: 05-Sep-2013 : 1950 Age: 63 years Gender: Male Race: Allergies: CLINDAMYCIN Referring Physician: ??Shana Murray DO Contact Centre Supervisor: ??Maricarmen Duran Physician: ??Shana Murray DO Summary: - ??Clinical question: - ??chest pain, sob - ??Left ventricle: - ??Systolic function was normal. Ejection fraction was estimated to be 65 %. - ??There were no regional wall motion abnormalities. - ??Wall thickness was moderately increased. - ??Doppler parameters were consistent with abnormal left ventricular relaxation (grade 1 diastolic dysfunction). - ??Aorta, systemic arteries: - ??The root exhibited mild dilatation. (4.0cm) - ??Left atrium: - ??The atrium was mildly dilated. - ??Right atrium: - ??Estimated central venous pressure: 10 mmHg. - ??Inferior vena cava, hepatic veins: - ??Respirophasic changes were blunted (less than 50% variation). Indications: chest pain, sob Procedure: The procedure was performed in the echo lab. This was a routine study. The transthoracic approach was used. The study included complete 2D imaging, M-mode, complete spectral Doppler, and color Doppler. Systolic blood pressure was 113 mmHg. Diastolic blood pressure was 68 mmHg. Left ventricle: Size was normal. Systolic function was normal. Ejection fraction was estimated to be 65 %. There were no regional wall motion abnormalities. Wall thickness was moderately increased. Doppler: Doppler parameters were consistent with abnormal left ventricular relaxation (grade 1 diastolic dysfunction). Aortic valve: The valve was trileaflet. Leaflets exhibited normal thickness and normal cuspal separation. Doppler: There was no stenosis. There was no regurgitation. Aorta: The root exhibited mild dilatation. (4.0cm) Mitral valve: Valve structure was normal. There was normal leaflet separation. Doppler: The transmitral velocity was within the normal range. There was no evidence for stenosis. There was trivial regurgitation. Left atrium: The atrium was mildly dilated. Right ventricle: The size was normal. Systolic function was normal. Wall thickness was normal. Pulmonic valve: Not well visualized. Doppler: There was no regurgitation. Pulmonary artery: The size was normal. Doppler: The tricuspid jet envelope definition was inadequate for estimation of RV systolic pressure. There are no indirect findings (abnormal RV volume or geometry, altered pulmonary flow velocity profile, or leftward septal displacement) which would suggest moderate or severe pulmonary hypertension. Tricuspid valve: The valve structure was normal. There was normal leaflet separation. Doppler: The transtricuspid velocity was within the normal range. There was no evidence for tricuspid stenosis. There was trivial regurgitation. Right atrium: Size was normal. Systemic veins: IVC: The inferior vena cava was normal in size. Respirophasic changes were blunted (less than 50% variation). Pericardium: The pericardium was normal in appearance. Measurement tables Other echo measurements (Reference normals) Estimated CVP ?? 10 mmHg ?? (--) System measurement tables 2D Ao Diam: 4.1 cm IVSd: 1.7 cm LVOT Diam: 2 cm LA Diam: 3.8 cm LVIDd: 3.7 cm LVIDs: 2.3 cm LVPWd: 1.7 cm CW PV Vmax: 1.2 m/s PV maxP.1 mmHg MM TAPSE: 2.7 cm PW LVOT VTI: 22.5 cm LVOT Vmax: 1.2 m/s LVOT Vmean: 0.8 m/s LVOT maxP.9 mmHg LVOT meanP.2 mmHg MV E/A Ratio: 0.6 MV PHT: 64.5 ms LATERAL E': 0.1 m/s LATERAL E/E': 4.9 SEPTAL E': 0.1 m/s SEPTAL E/E': 5.9 Prepared and signed by Shana Murray DO Signed 05-Sep-2013 17:00:56 Procedure Note Unknown, Provider - 09/05/2013 Transthoracic Echocardiogram 2D, M-mode, Doppler, and Color Doppler Patient: JIN GODINEZ MR number: [id number] Height: 70 in Weight: 274.3 lb BSA: 2.39 m?? Study date: 05-Sep-2013 : 1950 Age: 63 years Gender: Male Race: Allergies: CLINDAMYCIN Referring Physician: Shana Murray DO Contact Centre Supervisor: Maricarmen Martinez Reading Physician: Shana Murray DO Summary: - Clinical question: - chest pain, sob - Left ventricle: - Systolic function was normal. Ejection fraction was estimated to be 65 %. - There were no regional wall motion abnormalities. - Wall thickness was moderately increased. - Doppler parameters were consistent with abnormal left ventricular relaxation (grade 1 diastolic dysfunction). - Aorta, systemic arteries: - The root exhibited mild dilatation. (4.0cm) - Left atrium: - The atrium was mildly dilated. - Right atrium: - Estimated central venous pressure: 10 mmHg. - Inferior vena cava, hepatic veins: - Respirophasic changes were blunted (less than 50% variation). Indications: chest pain, sob Procedure: The procedure was performed in the echo lab. This was a routine study. The transthoracic approach was used. The study included complete 2D imaging, M-mode, complete spectral Doppler, and color Doppler. Systolic blood pressure was 113 mmHg. Diastolic blood pressure was 68 mmHg. Left ventricle: Size was normal. Systolic function was normal. Ejection fraction was estimated to be 65 %. There were no regional wall motion abnormalities. Wall thickness was moderately increased. Doppler: Doppler parameters were consistent with abnormal left ventricular relaxation (grade 1 diastolic dysfunction). Aortic valve: The valve was trileaflet. Leaflets exhibited normal thickness and normal cuspal separation. Doppler: There was no stenosis. There was no regurgitation. Aorta: The root exhibited mild dilatation. (4.0cm) Mitral valve: Valve structure was normal. There was normal leaflet separation. Doppler: The transmitral velocity was within the normal range. There was no evidence for stenosis. There was trivial regurgitation. Left atrium: The atrium was mildly dilated. Right ventricle: The size was normal. Systolic function was normal. Wall thickness was normal. Pulmonic valve: Not well visualized. Doppler: There was no regurgitation. Pulmonary artery: The size was normal. Doppler: The tricuspid jet envelope definition was inadequate for estimation of RV systolic pressure. There are no indirect findings (abnormal RV volume or geometry, altered pulmonary flow velocity profile, or leftward septal displacement) which would suggest moderate or severe pulmonary hypertension. Tricuspid valve: The valve structure was normal. There was normal leaflet separation. Doppler: The transtricuspid velocity was within the normal range. There was no evidence for tricuspid stenosis. There was trivial regurgitation. Right atrium: Size was normal. Systemic veins: IVC: The inferior vena cava was normal in size. Respirophasic changes were blunted (less than 50% variation). Pericardium: The pericardium was normal in appearance. Measurement tables Other echo measurements (Reference normals) Estimated CVP 10 mmHg (--) System measurement tables 2D Ao Diam: 4.1 cm IVSd: 1.7 cm LVOT Diam: 2 cm LA Diam: 3.8 cm LVIDd: 3.7 cm LVIDs: 2.3 cm LVPWd: 1.7 cm CW PV Vmax: 1.2 m/s PV maxP.1 mmHg MM TAPSE: 2.7 cm PW LVOT VTI: 22.5 cm LVOT Vmax: 1.2 m/s LVOT Vmean: 0.8 m/s LVOT maxP.9 mmHg LVOT meanP.2 mmHg MV E/A Ratio: 0.6 MV PHT: 64.5 ms LATERAL E': 0.1 m/s LATERAL E/E': 4.9 SEPTAL E': 0.1 m/s SEPTAL E/E': 5.9 Prepared and signed by Shana Murray DO Signed 05-Sep-2013 17:00:56 Shana Murray DO ECHO ORDERABLES [facility] [address] [place] [address] * NM MYOCARD PERFUSION SPECT STRESS AND REST (09/05/2013 12:34 PM CDT) Anatomical Region Laterality Modality Chest Nuclear Medicine 09/05/2013 12:0 0 PM CDT Narrative Transcriptions Shana Murray DO - 09/05/2013 2:26 PM CDT [place] [address] Department of Cardiology Stress Test PATIENT NAME: JIN GODINEZ PHYSICIAN: JANIYA KIM MR#: [id number] : 1950 ROOM #: [place] [address] AGE: CSN: [id number] SEX: M ADMIT: 09/04/2013 DATE OF PROCEDURE: 09/05/2013 INDICATIONS: The patient is a 63-year-old male with shortness of breath and atypicalchest symptoms. No prior history of coronary disease. History of hypertensionand asthma. PERFORMING VASCULAR TECHNICIAN: Easton Hu M.D. PROTOCOL: The patient was given 10 mg of Lexiscan over 10 seconds. Resting heartrate was initially 98 beats per minute, and laura to a max heart rate of 115beats per minute. Blood pressure was 181/128. ECG: Resting ECG shows normal sinus rhythm with incomplete rightbundle-branch block. No resting changes that would preclude evaluation. No STchanges diagnostic for ischemia with infusion. NUCLEAR IMAGING PORTION: Protocol: Patient was given a 0.8 millicuries of Myoview at rest and29.2 millicuries of Myoview at stress. NUCLEAR IMAGING FINDINGS: Rotational raw data images demonstrate stable patient position. Stressimages demonstrate a small area of mildly decreased uptake in the inferiorwall. Corresponding rest images also demonstrate persistence of this finding. Gated images demonstrate very mildly reduced left ventricular ejection fraction of 50%. There is normal wall motion and thickening. IMPRESSION: 1. Negative myocardial perfusion study for ischemia. 2. Mild fixed inferior defect, likely represents soft tissueattenuation, however, small area of infarct cannot be excluded. 3. Mildly reduced left ventricular systolic function. Ejection [id number] NAME: JIN GODINEZ DICTATOR: SHANA MURRAY MD DICTATED FOR: SW/MODL JOB ID: [id number] Department of Cardiology Shnaa Murray DO NM ORDERABLES * RESPIRATORY VIRUS PANEL BY PCR (09/05/2013 10:36 AM CDT) Adenovirus PCR Not detected Not detected, Invalid, Indeterminate 09/05/2013 3:20 PM CDT [facility] Human Metapneumovirus PCR Not detected Not detected, Invalid, Indeterminate 09/05/2013 3:20 PM CDT [facility] Human Rhinovirus/Entero virus PCR Not detected Not detected, Invalid, Indeterminate 09/05/2013 3:20 PM CDT [facility] Influenza A Non Subtyped PCR Not detected Not detected, Invalid, Indeterminate 09/05/2013 3:20 PM CDT [facility] Influenza A H1 PCR Not detected Not detected, Invalid, Indeterminate 09/05/2013 3:20 PM CDT [facility] Influenza A H3 PCR Not detected Not detected, Invalid, Indeterminate 09/05/2013 3:20 PM CDT [facility] Influenza A H1 2009 PCR Not detected Not detected, Invalid, Indeterminate 09/05/2013 3:20 PM CDT [facility] Influenza B PCR Not detected Not detected, Invalid, Indeterminate 09/05/2013 3:20 PM CDT [facility] Mycoplasma pneumoniae PCR Not detected Not detected, Invalid, Indeterminate 09/05/2013 3:20 PM CDT [facility] Parainfluenza Virus 1 PCR Not detected Not detected, Invalid, Indeterminate 09/05/2013 3:20 PM CDT [facility] Parainfluenza Virus 2 PCR Not detected Not detected, Invalid, Indeterminate 09/05/2013 3:20 PM CDT [facility] Parainfluenza Virus 3 PCR Not detected Not detected, Invalid, Indeterminate 09/05/2013 3:20 PM CDT [facility] Parainfluenza Virus 4 PCR Not detected Not detected, Invalid, Indeterminate 09/05/2013 3:20 PM CDT [facility] Respiratory Syncytial Virus PCR Not detected Not detected, Invalid, Indeterminate 09/05/2013 3:20 PM CDT [facility] Microbiology NASOPHARYNGEAL SWAB / Unknown Collection / Unknown 09/05/2013 10:36 AM CDT 09/05/2013 11:11 AM CDT Isiah Ruiz MD LAB - MICROBIOLOGY O RDERABLES [facility] [address] [place] [address], [facility] * INFLUENZA A+B+RSV PCR PANEL (09/05/2013 10:36 AM CDT) Influenza A PCR Not Detected Not Detected, Invalid 09/06/2013 5:57 AM CDT [facility] Influenza B PCR Not Detected Not Detected, Invalid 09/06/2013 5:57 AM CDT [facility] RSV PCR Not Detected Not Detected, Invalid 09/06/2013 5:57 AM CDT [facility] Microbiology NASOPHARYNGEAL SWAB / Unknown Collection / Unknown 09/05/2013 10:36 AM CDT 09/05/2013 11:11 AM CDT Isiah Ruiz MD LAB - MICROBIOLOGY O RDERABLES [facility] [address] [place], [place] [address], [facility] * CT CHEST WITH CONTRAST (09/05/2013 8:53 AM CDT) Anatomical Region Laterality Modality Chest Computed Tomogra phy 09/05/2013 8:56 AM CDT Impressions 09/06/2013 6:59 AM CDT Negative for pulmonary nodule or infiltrate. Edited by Viki Briggs on 09/05/2013 10:31 AM Narrative 09/06/2013 6:[address] THORAX WITH CONTRAST HISTORY: Shortness of breath, chest pain, cough. Images are provided from lung apices to the costophrenic sulci during contrast infusion. There is no lung nodule or pleural or pericardial effusion. No consolidation or groundglass opacification is present. No hilar or mediastinal adenopathy is seen. The trachea and bronchi appear widely patent. The aorta has normal caliber. Procedure Note Marcellus Hardin MD - 09/06/2013 CT THORAX WITH CONTRAST HISTORY: Shortness of breath, chest pain, cough. Images are provided from lung apices to the costophrenic sulci during contrast infusion. There is no lung nodule or pleural or pericardial effusion. No consolidation or groundglass opacification is present. No hilar or mediastinal adenopathy is seen. The trachea and bronchi appear widely patent. The aorta has normal caliber. IMPRESSION Negative for pulmonary nodule or infiltrate. Edited by Viki Briggs on 09/05/2013 10:31 AM Isiah Ruiz MD CT ORDERABLES * IMMUNOGLOBULINS PANEL (09/05/2013 4:48 AM CDT) IgA 280 40 - 350 mg/dL 09/05/2013 11:56 AM CDT [facility] Comment: IgG 786 650 - 1,600 mg/dL 09/05/2013 11:56 AM CDT [facility] Comment: IgM 61 50 - 300 mg/dL 09/05/2013 11:56 AM CDT [facility] Comment: Blood BLOOD SPECIMEN / Unknown 09/05/2013 4:48 AM CDT 09/05/2013 11:27 AM CDT Hammad Bentley MD LAB - CHEMISTRY ORDERABLES Performing Organization Address [facility] Co de Phone Number [facility] [address] [place] [phone] * (ABNORMAL) LIPID PROFILE (09/05/2013 4:48 AM CDT) Cholesterol 252(H) <200 mg/dL 09/05/2013 6:10 AM CDT [facility] Triglycerides 141 <150 mg/dL 09/05/2013 6:10 AM CDT [facility] HDL Cholesterol 43 >40 mg/dL 4 6:10 AM CDT [facility] LDL Calculated 181(H) <130 mg/dL 09/05/2013 6:10 AM CDT [facility] VLDL Calculated 28 <=30 mg/dL 4 6:10 AM CDT [facility] Chol HDL Ratio 5.9(H) <4.5 09/05/2013 6:10 AM CDT [facility] Blood BLOOD SPECIMEN / Unknown Lab Venipuncture / Unknown 09/05/2013 4:48 AM CDT 09/05/2013 5:43 AM CDT Cameron Daley MD LAB - CHEMISTRY DORIAN GONZÁLES Performing Organization Address [facility] Co de Phone Number [facility] [address] [place] [phone] * C-REACTIVE PROTEIN SENSITIVE (09/04/2013 7:32 PM CDT) [facility] C-Reactive Protein High Sensitivity 0.18 <0.30 mg/dL 09/04/2013 8:14 PM CDT [facility] Blood BLOOD SPECIMEN / Unknown Lab Venipuncture / Unknown 09/04/2013 7:32 PM CDT 09/04/2013 7:39 PM CDT Narrative [facility] - 09/04/2013 8:14 PM CDT C-REACTIVE PROTEIN SENSITIVE INTERPRETATION Patients with higher hs-CRP concentrations are more likely to develop stroke, myocardial infarction, and severe peripheral vascular disease. CRP is a nonspecific marker of inflammation and a variety of conditions other than atherosclerosis may cause elevated concentrations. ??If the first result is greater than 0.30 mg/dL, recommend repeating test at least 2 weeks later in a metabolically stable state, free of infection or acute illness. The lower of the two results should be used to determine the patient's risk. C-REACTIVE PROTEIN SENSITIVE results are used to assign risk as follows: ? Less than 0.10 ??mg/dL ?Low risk ? 0.10-0.30 mg/dL ?Average risk ? 0.31-0.99 mg/dL ?High risk ? Greater than 0.99 mg/dL ?Very high risk ? (Clin Chem 2009; 55:378-84) Isiah Ruiz MD LAB - CHEMISTRY DORIAN GONZÁLES [facility] Organization Address City/State/ZIP Co de Phone Number [facility] [address] [place] [address] * IGE BLOOD (09/04/2013 7:32 PM CDT) [facility] IgE Total 59.6 <158 IU/mL 09/04/2013 8:20 PM CDT [facility] Blood BLOOD SPECIMEN / Unknown Lab Venipuncture / Unknown 09/04/2013 7:32 PM CDT 09/04/2013 7:39 PM CDT Isiah Ruiz MD LAB - CHEMISTRY DORIAN GONZÁLES Performing Organization Address [facility] Co de Phone Number [facility] [address] [place] [address] * TROPONIN I (09/04/2013 3:05 PM CDT) Only the most recent of2 resultswithin the time period is included. [facility] Troponin I <0.015 0.000 - 0.049 ng/mL 09/04/2013 4:33 PM CDT [facility] Blood BLOOD SPECIMEN / Unknown Lab Venipuncture / Unknown 09/04/2013 3:05 PM CDT 09/04/2013 3:52 PM CDT Narrative [facility] - 09/04/2013 4:33 PM CDT Note: Diagnosis of myocardial infarction requires symptoms of ischemia or EKG changes of ischemia and TNI >99th of normal (0.05 ng/mL). Troponin should be drawn on initial assessment and 3-6 hours later as clinically indicated. Any condition resulting in myocardial cell damage can increase cardiac troponin levels. In addition to myocardial infarction, these include but are not limited to CHF, arrhythmia, myocarditis, and non-cardiac related causes such as pulmonary embolism, renal failure and sepsis. Janiya MORA LAB - CHEMISTRY DORIAN GONZÁLES Performing Organization Address [facility] de Phone Number [facility] [address] [place] [phone] * D-DIMER (09/04/2013 3:05 PM CDT) [facility] D-Dimer 0.33 0 - 0.5 mg/L FEU 09/04/2013 4:31 PM CDT [facility] Blood BLOOD SPECIMEN / Unknown Lab Venipuncture / Unknown 09/04/2013 3:05 PM CDT 09/04/2013 3:52 PM CDT Narrative [facility] - 09/04/2013 4:31 PM CDT Elevated results above the normal range may indicate DIC in the appropriate clinical setting. ??Serial evaluations may yield information regarding the clinical course. Results of this test should always be interpreted in conjunction with the patient's medical history, clin ical presentation and other findings. At the clinical cut-off of 0.50 mg/L FEU the Negative Predictive Value using INNOVANCE D-dimer is 98%. A very low percentage of patients with DVT may yield D-dimer results below the cut-off of 0.50 mg/L FEU. This is known to be prevalent in patients with distal DVT and in rare cases of PE. Cameron Daley MD LAB - COAGULATION OR DERABLES Performing Organization Address City/State/[facility] Co de Phone Number [facility] [address] [place] [address] * XR CHEST PA AND LATERAL (ROUTINE) (09/04/2013 12:03 PM CDT) Anatomical Region Laterality Modality Chest Radiographic Kerrie ging 09/04/2013 12:0 8 PM CDT Impressions 09/04/2013 12:08 PM CDT Clear lungs. Narrative 09/04/2013 12:08 PM CDT Chest x-ray 2 views. History: Chest pain. 2 views of the chest are compared to a prior exam of 09/04/2013. Heart size is stable. Lungs are clear. Procedure Note Marcellus Hardin MD - 09/04/2013 Chest x-ray 2 views. History: Chest pain. 2 views of the chest are compared to a prior exam of 09/04/2013. Heart size is stable. Lungs are clear. IMPRESSION Clear lungs. Janiya MORA DIAGNOSTIC IMAGING O RDERABLES * PT PTT PANEL (09/04/2013 11:31 AM CDT) PT 10.5 9.4 - 11.4 sec 09/04/2013 12:08 PM CDT [facility] INR 0.99 0.89 - 1.07 09/04/2013 12:08 PM CDT [facility] PTT 29.6 24.0 - 33.0 sec 09/04/2013 12:08 PM CDT [facility] Blood BLOOD SPECIMEN / Unknown 09/04/2013 11:31 AM CDT 09/04/2013 11:46 AM CDT Narrative [facility] - 09/04/2013 12:08 PM CDT Conventional Anticoagulant Therapy INR Reference Ranges: ??2.0-3.0 Intensive Anticoagulant Therapy INR Reference Ranges: ? 2.5-3.5 Janiya MORA LAB - COAGULATION OR DERABLES Performing Organization Address [facility] de Phone Number [facility] [address] [place] [phone] * B-TYPE NATRIURETIC PEPTIDE (09/04/2013 11:31 AM CDT) [facility] BNP 12 0 - 100 pg/mL 09/04/2013 1:26 PM CDT [facility] Blood BLOOD SPECIMEN / Unknown 09/04/2013 11:31 AM CDT 09/04/2013 11:46 AM CDT Narrative [facility] - 09/04/2013 1:26 PM CDT A cutoff of 100 pg/ml has been demonstrated to provide the maximal combination of sensitivity, specificity, and negative predictive value for contributing to the diagnosis of congestive heart failure(CHF) only. ??A BNP value greater than or equal to 100 pg/ml is consistent with a diagnosis of CHF in the appropriate clinical setting. ??False positive results are more common in females greater than 75 years of age. ??Blood concentrations of natriuretic peptides may also be elevated in patients with myocardial infarction and in patients who are candidates for or are undergoing renal dialysis. Janiya MORA LAB - CHEMISTRY ORDE RABLES Performing Organization Address [facility] de Phone Number [facility] [address] [place] [phone] * EKG 12-LEAD (09/04/2013 11:25 AM CDT) [facility] Signature Ventricular Rate 78 BPM [facility] MUSE Atrial Rate 78 BPM [facility] P-R Interval 158 ms SM MUSE QRS Duration ms 98 ms [facility] MUSE Q-T Interval ms 368 ms [facility] MUSE QTC Calculation (Bezet) 419 ms [facility] MUSE Calculated P [place] 43 degrees [facility] MUSE Calculated R [place] -28 degrees [facility] MUSE Calculated T [place] 35 degrees [facility] MUSE Interpretation EKG NORMAL SINUS RHYTHM POSSIBLE LEFT ATRIAL ENLARGEMENT INCOMPLETE RIGHT BUNDLE BRANCH BLOCK BORDERLINE ECG NO PREVIOUS ECGS AVAILABLE Confirmed by MD ELSI, ALANIS Worthington ([id number]) on 09/05/2013 7:19:44 AM [facility] M[facility] 09/04/2013 11:2 5 AM CDT 09/05/2013 7:19 AM CDT Narrative [facility] - 09/05/2013 6:19 AM CDT Procedure Note Document, Scanned - 09/04/2013 3:57 PM CDT Transcriptions Document, Scanned - 09/05/2013 7:20 AM CDT Janiya MORA ECG ORDERABLES Performing Organization Address [facility] Co de Phone Number [facility] * ENDOSCOPY, COLON, SCREENING (01/31/2012 1:26 PM DESIGN EDITOR) Narrative Transcriptions Amaury Noyola MD - 01/31/2012 1:26 PM CST Amaury Noyola MD GI PROCEDURE ORDERAB LES Performing Organization Address [facility] de Phone Number [facility] ENDOSCOPY * GROSS + MICRO EXAM (01/31/2012 1:00 PM DESIGN EDITOR) Only the most recent of2 resultswithin the time period is included. Result CASE NUMBER [id number] Comment: ORDERING PHYSICIAN ??AMAURY NOYOLA SPECIMEN TYPE ?Colon Sigmoid-polyp bx Date ? 01/31/2012 Physician ?Inessa Noyola Gross Description ? The specimen is submitted as sigmoid polyp consists of three pink mucosal tissues each < 1 mm, submitted entirely in one block. RN/na Microscopic Exam ? The sigmoid colon polyp is a hyperplastic polyp. MM/na Diagnosis ? 1. ?Sigmoid colon, polyp, biopsy ?? -- ?Hyperplastic polyp MM/na Postpartum Nurse ? na Pathologist ?Tammie Chandler MD CPT code ? 03360 Performed By ? [facility], [facility], [address] [place] [address], [place] [address] MISCELLANEOUS SAMPLES / Unknown 01/31/2012 1:00 PM DESIGN EDITOR 01/31/2012 3:42 PM DESIGN EDITOR Historical Provider LAB - PATHOLOGY/C YTOLOGY ORDERABLES Care Teams Ambulance Mechanic Relationship Specialty Start Date End Date Michael Hussein MD [address] [place] [id number] PCP - General Internal Medicine 06/04/21
--- OUTSIDE RECORDS SUMMARY | 2024-04-19 05:03 | XMS_ITS | Clinical Summary ---
Author Organization [employer] [address] [facility] Address [address] [place] [address] Care Team Providers Care Rn Lactation Consultant Name Role Phone Stephan Tomas DO Primary Care Provider Social History Tobacco Use Types Packs/Day Years Used Date Smoking Tobacco: Never Assessed Sex and Gender Information Value Date Recorded Sex Assigned at Not on file Legal Sex Male 10:49 AM CDT Gender Identity Not on file Sexual Orientation Not on file Plan of Treatment Health Maintenance Due Date Last Done Comments DTAP/TDAP/TD VACCINES (1 - Tdap) 1971 COLORECTAL SCREENING 1997 Colorectal Cancer Screening 1997 FIT-DNA Q 3 years 1997 FIT/FOBT Q 1 year 1997 Flex Sig/CT Colonography Q 5 years 1997 PNEUMOCOCCAL VACCINE 65+ YEARS (1 of 1 - PCV) 03/08/20 02 ZOSTER VACCINE (1 of 2) 2002 INFLUENZA VACCINE (#1) 2023 RSV VACCINE (60+ or ) (1 - 1-dose 75+ series) 2027 Insurance MEDICARE PART A AND B [id number] [place] [address] Care Teams Rn Lactation Consultant Relationship Specialty Start Date End Date Stephan Tomas DO [address] [place] [id number] PCP - General Family Practice 09/25/18
--- OUTSIDE RECORDS SUMMARY | 2024-04-19 05:03 | XMS_ITS | Clinical Summary ---
Author Organization [facility] Address [address] [place] [address]. [place] [address] Care Team Providers Care Laundry Machine Operator Name Role Phone Unavailable Primary Care Provider Unavailabl e Social History Tobacco Use Types Packs/Day Years Used Date Smoking Tobacco: Never Assessed Sex and Gender Information Value Date Recorded Sex Assigned at Not on file Legal Sex Male 5:43 PM CDT Gender Identity Not on file Sexual Orientation Not on file Plan of Treatment Health Maintenance Due Date Last Done Comments Colorectal Cancer Screening Colonoscopy (10 Years) 1952 Hepatitis C 1970 DTaP, Tdap and Td Vaccines ( 1 - Tdap) 1971 Zoster Vaccines (1 of 2) 2002 Pneumococcal Vaccine: 65+ Ye ars (1 of 1 - PCV) 2017 COVID-19 Vaccine ( - 2023-2 5 season) 2023 Influenza Adult (#1) 2023 RSV Immunization or 60+ Years (1 - 1-dose 75+ series) 2027 Meningococcal Vaccine Aged Out No mynor rosalinda eligible based on patient's age to complete this topic RSV Immunizations Under 20 Months Aged Out No longer eligible based on patient's age to complete this topic
--- OUTSIDE RECORDS SUMMARY | 2024-04-19 05:03 | XMS_ITS | Referral Summary ---
Author Organization [facility] Address [address] [facility] [place] [address] Care Team Providers Care Atomic Process Engineer Name Role Phone Michael Hussein MD Primary Care Provider [phone] Source Comments [facility],non-owned Affiliates and Associated Physician Practices is amultiple site organization consisting of ambulatory clinics and hospital sitesin [place], [place], [place] and [place]. This disclosure is being madepursuant to the Care Everywhere program and may not contain all information available regarding this patient. Last updated 17.[facility] Allergies Active Allergy Reactions Criticality Noted Date [...] Active Problems Problem Noted Date Diagnosed Date senior living (current) use of i 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 Rheumatoid arthritis of [facility] with negative rheumatoid factor 05/26/2017 Overview [...] 12/02/2022 Assessment & Plan (06/04/2021 11:10 AM DOCUMENT CONTROL SUPERVISOR): Reviewed potential inherent risks with the continued [...] treatment. Immunizations Name Administration Dates Next Due Alyssa Gayle primary monoval ent 12+ yr 0.3mL Purple cap 06/19/2020,05/22/2020 Social History Tobacco Use Types Packs/Day Years [...] Mass Index 30.85 12/01/2023 8:45 AM CDT Functional Status Functional Status Response Date of Assess ment Is person deaf or have serious hearing difficult y? No 12/20/2017 Is person blind or have serious difficulty seein g? No 12/20/2017 Does person have serious dif ficulty walking/climbing stairs? No 12/20/2017 Does person have difficulty dressing/bathing? No 12/20/2017 Does person have difficulty doing errands alone? No 12/20/2017 Cognitive Status Response Date of Assessm ent Does person have difficulty concentrating/remembering/making decisions? No 12/20/2017 Plan of Treatment Upcoming Encounters Date Type Department Care Team (Late st Contact Info) Description 12/06/2024 9:00 AM CDT Office Visit [facility] - Rheumatology [address], [address] [place] [address] Tuan Poon DO [address] [facility] [place] [address] Medical Devices Implanted Type Area Rn Hedis Device Identifier Shelf Expiration Date Model / Serial / Lot Graft Bone Alfs + Dbm 5ml Ptty Implanted:Qty: 1 on 12/20/2017 by [place]on Paula DO [place] [facility] [facility] [place]: Spine Lumbar [employer] 04/27/2019 [id number] / / [id number] [place] Set Screw Implanted:Qty: 4 on 12/20/2017 by Easton Paula DO at [facility] [place] [facility] [place]: Spine Lumbar [employer] [id number] / / 6.5x50mm Screw Implanted:Qty: 2 on 12/20/2017 by Easton Paula DO at [facility] [place] [facility] [place]: Spine Lumbar [employer] [id number] / / 6.5x55mm Screw Implanted:Qty: 1 on 12/20/2017 by Easton Paula DO at [facility] [place] [facility] [place]: Spine Lumbar [employer] [id number] / / 6.5x60mm Screw Implanted:Qty: 1 on 12/20/2017 by Easton Paula DO at [facility] [place] [facility] [place]: Spine Lumbar [employer] [id number] / / 35mm Flavio Implanted:Qty: 1 on 12/20/2017 by Easton Paula DO at [facility] [place] [facility] [place]: Spine Lumbar [employer] [id number] / / 40mm Flavio Implanted:Qty: 1 on 12/20/2017 by Easton Paula DO at [facility] [place] [facility] [place]: Spine Lumbar [employer] [id number] / / Procedures Procedure Name Priority Date/Time Associated Diagnosis Comments COMPREHENSIVE METABOLIC PANEL 11/05/2020 3:48 PM CDT HEPATITIS SCREEN ACUTE 11/11/202 0 3:20 PM DOCUMENT CONTROL SUPERVISOR ENDOSCOPY, COLON, SCREENING Routine 01/31/2012 1:26 PM DOCUMENT CONTROL SUPERVISOR from Last 3 Months or Most Recently Relevant to Health Maintenance Results * (ABNORMAL) COMPREHENSIVE METABOLIC PANEL (11/05/2020 3:48 PM CDT) Glucose 99 65 - 99 mg/dL [facility] Comment: ? Fasting reference interval BUN 32(H) 7 - 25 mg/dL [facility] Creatinine 1.36(H) 0.70 - 1.25 mg/dL [facility] Comment: For patients >49 years of age, the reference limit for Creatinine is approximately 13% higher for people identified as -Jamaican. eGFR by MDRD 53(L) > OR = [...] 46 U/L [facility] Comment: Test Performed at: [facility] ??[id number] SHEILA PÉREZ DO,MPH 11/05/2020 3:48 PM CDT 11/05/2020 3:49 PM CDT Narendra Spencer MD LAB - CHEMISTRY OR DERABLES [facility] [address] [id number] * HEPATITIS SCREEN ACUTE (02/06/2020 3:20 PM DOCUMENT CONTROL SUPERVISOR) Hepatitis A Virus Antibody IgM NON-REACT LINDA NON-REACT LINDA [facility] Comment: For additional information, please refer to [email or web address]/faq/[email or web address] (This link is being provided for informational/ [...] a test for HCV RNA (test code 59278) is suggested. For additional information please refer to http://Wandrian.[email or web address]/faq/BJU98o9 (This link is being provided for informational/ educational purposes only.) Test Performed at: [facility] [address] [place], [place] ??[id number] SHEILA PÉREZ DO,MPH 02/06/2020 3:20 PM DOCUMENT CONTROL SUPERVISOR 02/06/2020 3:21 PM DOCUMENT CONTROL SUPERVISOR Narendra Spencer MD LAB - CHEMISTRY OR DERABLES Performing Organization Address [facility] de Phone Number [facility] [address] [place] [address] * ENDOSCOPY, COLON, SCREENING (01/31/2012 1:26 PM DOCUMENT CONTROL SUPERVISOR) Narrative Transcriptions Amaury Noyola MD - 01/31/2012 1:26 PM CST Amaury Noyola MD GI PROCEDURE ORDERAB LES Performing Organization Address [facility] de Phone Number [facility] ENDOSCOPY from Last 3 Months or Most Recently Relevant to Health Maintenance Advance Directives Documents on File Type Date Recorded Patient Sand Digger Expl anation Adv Directive/Living Will/POA 12/20/2017 Adv Directive/Living Will/POA 09/06/2013 10:31 PM * Full Code (Latest Code Status on File) Date Activated Date Inactivated Comments 12/20/2017 5:02 PM 12/22/2017 1:45 PM * Full Code Date Activated Date Inactivated Comments 09/04/2013 2:46 PM 09/05/2013 6:37 PM Care Teams Atomic Process Engineer Relationship Specialty Start Date End Date Michael Hussein MD [address] [place] [phone] PCP - General Internal Medicine 06/04/21
--- OUTSIDE RECORDS SUMMARY | 2024-04-19 05:03 | XMS_ITS | Continuity of Care Document ---
Author Organization [facility] Address [address] [place] [address] Phone Care Team Providers Care Boom Pump Operator Name Role Phone O Gume CORMIER, Cristobal [...] OFFICE/OUTPAT IENT VISIT NEW [facility] , [address], [place], [address], [place] tel:[phone] [facility] Low back painHistory of lumbar fusionBody mass index (BMI) 37.0-37.9, adultElevated blood-pressure reading, w/o diagnosis of htn 2-201 [address] [place], [place], [place], [id number] . tel:[phone] Family History Family Member Type Diagnosis Age At Onset Mother Problem (finding) hypertension Mother Problem (finding) Cardiovascular disease Mother Problem (finding) seizure disorder Mother Problem (finding) Diabetes mellitus Father Problem (finding) Mental illness Mother Problem (finding) Cancer, unknown Payers Payer name Insurance type Covered constitution party ID Authoriza tion(s) Medicare E2 OT [id number] Social History Type Description Quantity Date Captured [...]
--- OUTSIDE RECORDS SUMMARY | 2024-04-19 05:04 | XMS_ITS | Continuity of Care Document ---
Author Organization [id number] [facility] Address [address] [facility] [address] [place] [address] Phone Care Team Providers Care Access Control Specialist Name Role Phone Luis Fernando Soliman MD [...] Diagnoses Date Provider Providers Copied on Encounter [id number] - [employer], [address] [facility] [address], [place], [address], [place] tel: [phone] [facility] Card[facility] No Information 4 Janny Luis Fernando. [address] [facility], [place], [address]. tel: [phone] Referring Provider: Stephan Tomas, [address] [facility] [address], [place], [address] . tel:[phone] OFFICE/OUTPT EM EST DETAILED/MOD ERATE 25 MINS [id number] - [employer], [address] [facility] [address], [place], [address], [place] tel: [phone] [facility] Cardiology Lower Ext. EdemaHypertension, BenignHypercholeste rolemiaUnspecified general medical examination 4 Ronen Childs. [address] [place], [id number] . [phone] Referring Provider: Stephan Tomas, [address], [place], [address] . tel:[phone] OFFICE/OUTPT EM EST DETAILED/MOD ERATE 25 MINS [id number] - [employer], [address] [facility] [address], [place], [address], [place] tel:[phone] [facility] Cardiology Hypertension, BenignHypercholeste rolemiaUnspecified general medical examinationLower Ext. Edema 4 Ronen Childs. [address] , [place], [id number] . [phone] Referring Provider: Stephan Tomas, [address], [place], [address] . tel:[phone] [id number] - [employer], [address] [facility] [address], [place], [address], tel:[phone] [facility] Cardiology No Information 4 Ronen Childs. [address] [place], [id number] . [phone] Referring Provider: Amadeo Cardenas, [address] [place], [address] . tel:[phone] OFFICE/OUTPT EM EST DETAILED/MOD ERATE 25 MINS [id number] - [facility] [employer], [address] [facility] [address], [place], [address], [place] tel:[phone] [facility] Cardiology Hypertension, BenignShortness of Breath 4 Ronen Childs. [address] [place], [id number] . [phone] Referring Provider: Stephan Tomas, [address], [place], [address] . tel:[phone] OFFICE/OUTPT CONSULT EM COMPREH/MODE RATE 60 MINS [id number] - [facility] [employer], [address] [facility] [address], [place], [address], [place] tel: [phone] [facility] Cardiology Hypertension, BenignShortness of BreathMurmur 3 Ronen Childs. [address] [place], [id number] . tel: [phone] Referring Provider: Stephan Tomas, [address], [place], [address] . tel:[phone] [id number] - [facility], [address] [facility] [address], [place], [address], tel: [phone] [facility] Cardiology No Information 3 Ronen Childs. [address] [place], [id number] . tel: [phone] Family History Family Member Type Diagnosis Age At Onset Maternal grandmother Problem (finding) stroke Family H/O Problem (finding) hypertension Sister Problem (finding) asthma family h/o Problem (finding) HTN Problem (finding) Paternal uncle Problem (finding) Maternal histo ry of diabetes mellitus Mother Problem (finding) Tongue cancer Payers Payer name Insurance type Covered alliance party ID Authorluis infante(s) [employer] [facility] [id number] Social History Type Description Quantity Date Captured [...]
--- OUTSIDE RECORDS SUMMARY | 2024-04-19 05:04 | XMS_ITS | Patient Health Record ---
Author Organization [facility] Address [address] [facility] [address] [place], [place] [address] Care Team Providers Care Safety Deposit Boxes Custodian Name Role Phone Ronald Cristobal Unavailable [phone] Migration, Provider Unavailable Unavailable Allergies Allergen (clinical drug ingredient) Drug/Non Drug Allergy documented on EMR Reaction Allergy Type Onset Date Status HYDROCODONE CP (uncoded) Unknown Allergy Active amoxicillin / clavulanate Augmentin Unknown Drug Allergy Active clindamycin Clindamycin Unknown Drug Allergy Act maritza Reason For Referral No Information Medications Medication SIG (Take, Route, Frequency, Duration) Notes Start Date End Date Status CIPRODEX 0.3%-0.1% 4 GTT IN EACH AFFECTED EAR 2 TIMES A DAY for 7 DAY(S) *Please review for potential replacement for e-prescription and drug interaction check* 07/04/2013 Active hydroCHLOROthiazide 12.5 MG 1 cap(s) orally once a day for 30 day(s) Active ALPRAZolam ER 0.5 MG 1 tab(s) orally once a day (in the morning) for 10 day(s) Active Citalopram Hydrobromide 20 MG 1 tab(s) orally once a day for 30 day(s) Active Amphetamine-Dextroampheta mine 20 MG 1 tab(s) orally 2 times a day for 30 day(s) Active oxyCODONE HCl 7.5 MG 1 TAB(S) ORALLY EVERY 6 HOURS *Please review and pick correct strength-formula tion from Thinkful options. If intended option is not shown, discontinue and re-order from Quick Search* Active CLOBETASOL OINTMENT 0.05% 1 ALEXIS APPLIED TOPICALLY 2 TIMES A DAY for 30 DAY(S) *Please review for potential replacement for e-prescription and drug interaction check* Active Amoxicillin 500 MG 1 cap(s) orally 3 times a day for 10 day(s) Active PROAIR HFA CFC FREE 90 MCG/INH 2 PUFF(S) INHALED 4 TIMES A DAY for 30 DAY(S) *Please review for potential replacement for e-prescription and drug interaction check* Active Symbicort 160-4.5 MCG/ACT 2 puff(s) inha led 2 times a day for 30 day(s) Active Fluticasone Propionate 50 MCG/ACT 1 spray(s) intranasally once a day for 30 day(s) Active NexIUM 40 MG 1 cap(s) orally once a day for 30 day(s) Active predniSONE 20 MG 1 tab(s) orally once a day for 7 day(s) Active TYLENOL WITH CODEINE #3 5/325MG 1 TAB(S) ORALLY EVERY 6 HOURS *Please review for potential replacement for e-prescription and drug interaction check* Active Problems Problem Type SNOMED Code ICD Code Onset Dates Problem Status W/U Status Risk Notes Problem Acute otitis externa (33243930) ACUTE OTITIS EXTERNA NEC (380.22) Active confirmed lt Problem Chronic infection of sinus (38014470) Chronic infection of sinus NOS (473.9) Active confirmed Problem Otalgia NOS (388.70) Active confirmed lt Encounters Encounter Location Date Provider Diagnosis [facility] [place] [address] [facility] [address] [place], [place] [id number] 03/10/2024 Provider Migration ACUTE OTITIS EXTERNA NEC 380.22 Assessments Encounter Date Diagnosis (ICD Code) Assessment Notes Treatment Notes Treatment Clinical Notes Section Notes 03/10/2024 ACUTE OTITIS EXTERNA NEC (ICD9-CM - 380.22) lt Plan Of Treatment No Information Insurance Providers Payer Name Payer Address Payer Phone Subscriber Number Group Number Insured Name Patient Relationship to Insured Coverage Start Date Coverage End Date [employer] [facility] [id number] [place] [address] [id number] Brian Abarca Self - patient is the insured Medical (General) History Medical History History ICD Code Pertinent Medical History: E ye problems, Vision changes, Sinusitis, History of Allergies, Ear problems, Nose problems, Throat/Neck problems, History of a Heart attack, Asthma, Anxiety/Depression, History of blood cancers, Surgical History Surgery Date(Month/Year) Back of head x 2 - for infection Hospitalization History Reason Date(Month/Year) surgery
--- OUTSIDE RECORDS SUMMARY | 2024-04-19 05:04 | XMS_ITS | Continuity of Care Document ---
Author Organization [employer] Address [address] [place] [address] Phone Care Team Providers Care Nipple Threader Name Role Phone Julissa Yi Unavailable Unavailab le Allergies, Adverse Reactions, Alerts Substance Reaction Status Criticality atorvastatin Rash Active No Information clavulanic acid Active No Informati on Medications Medication Instructions Dosage Effective Dates (start - stop) Status Comments oxycodone-acetaminop hen 10 mg-325 mg tablet take 1 tablet by oral route every 4 hours as needed as needed 1 tablet - Active 03/30. Adderall 20 mg tablet take 1 tablet by oral route every day 20 MG - Active 04/30. Fill in 30 days from the above date. Adderall 20 mg tablet take 1 tablet by oral route every day 20 MG - Active 05/28 Adderall 20 mg tablet take 1 tablet by oral route every day 20 MG - Active 03/30. [facility] should be the only office providing controlled substance scripts for this patient. If any other provider does so, do not dispense this. clonazepam 0.5 mg tablet take 1 tablet by oral route every day 0.5 MG - Active pt may add this once daily for severe anxiety LOSARTAN POTASSIUM 100 MG TAB TAKE ONE TABLET BY MOUTH DAILY - Active ARMINDA/POLY/DEXAMET EYE OINT APPLY THIN RIBBON TO AFFECTED EYES THREE TIMES A DAY DIRECTED - Active oxycodone-acetaminop hen 10 mg-325 mg tablet take 1 tablet by oral route every 4 hours as needed - Active 2/3. Fill after 30 days from date on this rx oxycodone-acetaminop hen 10 mg-325 mg tablet take 1 tablet by oral route every 4 hours as needed 1 tablet - Active SERTRALINE HCL 100MG TABLET TAKE ONE AND A HALF TABLETS BY MOUTH DAILY - Active alprazolam 2 mg tablet take 1 tablet by oral route 3 times every day 2 MG - Active [facility] should be the only office providing controlled substance scripts for this patient. If any other provider does so, do not dispense this. Tobrex 0.3 % eye ointment apply by ophthalmic route 2 times every day a small amount (1/2 inch) to the lower lid of the affected eye(s) 0.00 - Active fluconazole 150 mg tablet take 1 tablet by oral route once 150 MG - Active triamcinolone acetonide 0.1 % topical cream apply by topical route 3 times every day to hands until rash is gone - Active Vitamin D3 1,000 unit tablet one daily - Active valacyclovir 1 gram tablet take 1 tablet by oral route 3 times every day 1000 MG - Active Zyrtec 10 mg tablet take 1 tablet by oral route every day 10 MG - Active Procedures Procedure Date OFFICE REQIN-[id number] SYST BP LT 130 MM HG DIAST BP < 80 MM HG OFFICE [id number] SYST BP >= 140 MM HG6 IT DIAST BP 80-89 MM HG CBC, INC PLATELETS AND DIFFERENTIAL COMPREHEN METABOLIC PANEL CMP 9 HEMOGLOBIN A1C HGA1C, GLYCO LIPID PANEL PSA, TOTAL, SCREENING MEDICARE ONLY THYROID STIMULATION HORMONE(TSH) 2018 ROUTINE VENIPUNCTURE OFFICE [id number] SYST BP >= 140 MM HG6 IT DIAST BP >= 90 MM HG Advance Directives Directive Yes / No Effective Date File Name No Information Encounters Encounter Description Practice Location Reason(s) For Visit Diagnoses Date Provider Providers Copied on Encounter [facility], [address], [place], [place], [address] , [place] tel: [phone] [place] No Information 1 Bellahilda Julissa. [address], [place], [place], [address], [place]. [phone] [facility], [address], [place], [place], [address] , [place] tel: [phone] [place] No Information 0 Genoveva Rothman. [address], [facility] [address], [place], [place], [address], [place]. [phone] OFFICE NAJIH-WKI-WL TAILED [facility], [address], [place], [place], [address] , [place] tel: [phone] [place] Chronic condition (chief complaint) Body mass index (BMI) 37.0-37.9, adultSpondylosi s of lumbar region without myelopathy or radiculopathyOs teoarthritis of both knees, unspecified osteoarthritis typeLeukocytosi s, unspecified typeHx of fallRheumatoid arthritis, involving unspecified site, unspecified rheumatoid factor presenceHyperte nsive kidney disease with chronic kidney disease stage IIIChronic kidney disease, stage 3 (moderate)Moder ate episode of recurrent major depressive disorderAnxiety state, unspecifiedADD (attention deficit disorder)Pre-di abetesDyshidrot ic eczemaVitamin D deficiencyErect ile dysfunction of organic originObesity (BMI 30-39.9) 0 Genoveva Rothman. [address], [facility] [address], [place], [place], [address], [place]. [phone] Referring Provider: Stephan Tomas, [address] [place] [address], [place], [address] . tel:[phone] [facility], [address], [place], [place], [address] , [place] tel:[phone] [place] No Information 9 Genoveva Rothman. [address] [place] [address], [place] [address], [place], [place], [address], [place]. tel:[phone] [employer] [facility], [address], [place], [place], [address] , [place] tel:[phone] [place] No Information 9 Genoveva Rothman. [address], [address], [place], [place], [address], [place]. [phone] [employer], [address], [place], [place], [address] , tel:[phone] [place] No Information 9 Genoveva Rothman. [address], [address], [place], [place], [address], [place]. tel:[phone] OFFICE RUJMO-MZY-PJ [facility] [employer], [address], [place], [place], [address] , [place] tel: [phone] [place] Chronic condition (chief complaint) Body mass index (BMI) 37.0-37.9, adultHx of fallRheumatoid arthritis, involving unspecified site, unspecified rheumatoid factor presenceOsteoar thritis of both knees, unspecified osteoarthritis typeSpondylosis of lumbar region without myelopathy or radiculopathyHy pertensive kidney disease with chronic kidney disease stage IIIVitamin D deficiencyChron ic kidney disease, stage 3 (moderate)ADD (attention deficit disorder)Dyshid rotic eczemaModerate episode of recurrent major depressive disorderAnxiety state, unspecifiedObes ity (BMI 30-39.9)Erectil e dysfunction of organic originPre-diabe tesLeukocytosis , unspecified typeEncounter for prostate cancer screening 9 Genoveva Rothman. [address], [facility] [address], [place], [place], [address], [place]. tel:[phone] Referring Provider: Stephan Tomas [address] [place] [address], [place], [address] . tel:[phone] [facility] [employer], [address], [place], [place], [address] , [place] tel:[phone] [place] No Information 9 Genoveva Rothman. [address] [place] [address], [facility] [address], [place], [place], [address], . tel:[phone] [facility], [address], [place], [address] , [place] tel: [phone] [place] No Information Genoveva Rothman. [address], [facility] [address], [place], [place], [address], . tel:[phone] OFFICE [facility]NCG-PWZ-[facility], [address], [place], [address] , [place] tel: [phone] [place] Chronic conditions (chief complaint) Spondylosis of lumbar region without myelopathy or radiculopathyOs teoarthritis of both knees, unspecified osteoarthritis typeRheumatoid arthritis, involving unspecified site, unspecified rheumatoid factor presenceHyperte nsive kidney disease with chronic kidney disease stage IIIChronic kidney disease, stage 3 (moderate)ADD (attention deficit disorder)Dyshid rotic eczemaModerate episode of recurrent major depressive disorderAnxiety state, unspecifiedObes ity (BMI 30-39.9)Chronic sinusitis, unspecified locationVitamin D deficiencyErect ile dysfunction of organic originPre-diabe tesLeukocytosis , unspecified typeBody mass index (BMI) 36.0-36.9, adultTooth pain Genoveva Rothman. [address], [place] [address], [place], [place], [address], [place]. tel:[phone] Referring Provider: Stephan Tomas, [address] [place] [address], [place], [address] . tel:[phone] [facility], [address], [place], [place], [address] , [place] tel: [phone] [place] chronic condition f/u (chief complaint) Spondylosis of lumbar region without myelopathy or radiculopathyOs teoarthritis of both knees, unspecified osteoarthritis typeRheumatoid arthritis, involving unspecified site, unspecified rheumatoid factor presenceHyperte nsive kidney disease with chronic kidney disease stage IIIChronic kidney disease, stage 3 (moderate)ADD (attention deficit disorder)Modera te episode of recurrent major depressive disorderAnxiety state, unspecifiedObes ity (BMI 30-39.9)Chronic sinusitis, unspecified locationVitamin D deficiencyErect ile dysfunction of organic originPre-diabe tesLeukocytosis , unspecified typeBody mass index (BMI) 36.0-36.9, adultAcute pain of left kneeEncounter for immunizationDys hidrotic eczema 9 Genoveva Rothman. [facility], [facility] [address], [place], [place], [address], . tel:[phone] Referring Provider: Stephan Tomas, [address] [place], [place] [address] [address], [place], [address] . tel:[phone] [employer], [address], [place], [place], [address] , tel:[phone] [place] Spondylosis of lumbar region without myelopathy or radiculopathyOs teoarthritis of both knees, unspecified osteoarthritis typeRheumatoid arthritis, involving unspecified site, unspecified rheumatoid factor presenceHyperte nsive kidney disease with chronic kidney disease stage IIIChronic kidney disease, stage 3 (moderate)ADD (attention deficit disorder)Modera te episode of recurrent major depressive disorderAnxiety state, unspecifiedObes ity (BMI 30-39.9)Chronic sinusitis, unspecified locationEczema, unspecified typeVitamin D deficiencyErect ile dysfunction of organic originPre-diabe tesLeukocytosis , unspecified typeBody mass index (BMI) 33.0-33.9, adultHeat rash 9 Genoveva Rothman. [facility], [place] [address], [place], [place], [address], [place]. tel:[phone] Referring Provider: Stephan Tomas, [facility] [address], [place], [address] . tel:[phone] [facility], [address], [place], [place], [address] , [place] tel:[phone] [place] No Information 9 Genoveva Rothman. [facility] [employer], [place] [address], [place], [place], [address], [place]. tel:[phone] [facility] [employer], [address], [place], [place], [address] , tel: [phone] [place] Body mass index (BMI) 34.0-34.9, adultRheumatoid arthritis of multiple sites with negative rheumatoid factorRas 8 Genoveva Rothman. [address] [place] [address], [address], [place], [place], [address], . tel:[phone] Referring Provider: Stephan Tomas, [address] [place] [address] [address], [place], [address] . tel:[phone] [facility], [address], [place], [place], [address] , tel: [phone] [place] Body mass index (BMI) 33.0-33.9, adultChronic sinusitis, unspecified locationNorthern [facility] 8 Genoveva Rothman. [address] [place] [address], [place] [address], [place], [place], [address], . tel:[phone] Referring Provider: Stephan Tomas, [address] [place] [address] [address], [place], [address] . tel:[phone] [facility], [address], [place], [place], [address] , tel: [phone] [place] Eczema, unspecified typeSpondylosis of lumbar region without myelopathy or radiculopathyOs teoarthritis of both knees, unspecified osteoarthritis typeRheumatoid arthritis of multiple sites with negative rheumatoid factorHypertens maritza kidney disease with chronic kidney disease stage IIIChronic kidney disease, stage 3 (moderate)ADD (attention deficit disorder)Modera te episode of recurrent major depressive disorderAnxiety state, unspecifiedObes ity (BMI 30-39.9)Chronic sinusitis, unspecified locationVitamin D deficiencyErect ile dysfunction of organic originPre-diabe tesLeukocytosis , unspecified typeBody mass index (BMI) 33.0-33.9, adult 8 Genoveva Rothman. [address] [place] [address], [address], [place], [place], [address], . tel:[phone] Referring Provider: Stephan Tomas, [address] [place] [address], [place], [address] . tel:[phone] [facility], [address], [place], [place], [address] , tel: [phone] [place] No Information 8 Genoveva Rothman. [address] [place] [address], [place], [place], [address], . tel:[phone] [facility] [employer], [address], [place], [place], [address] , [place] tel: [phone] [place] Spondylosis of lumbar region without myelopathy or radiculopathyOs teoarthritis of both knees, unspecified osteoarthritis typeRheumatoid arthritis of multiple sites with negative rheumatoid factorHypertens maritza kidney disease with chronic kidney disease stage IIIChronic kidney disease, stage 3 (moderate)ADD (attention deficit disorder)Modera te episode of recurrent major depressive disorderAnxiety state, unspecifiedObes ity (BMI 30-39.9)Vitamin D deficiencyErect ile dysfunction of organic originPre-diabe tesBody mass index (BMI) 34.0-34.9, adultEczema, unspecified typeLeukocytosi s, unspecified typeChronic sinusitis, unspecified location 8 Genoveva Rothman. [address] [place] [address], [place] [address], [place], [place], [address], [place]. tel:[phone] Referring Provider: Stephan Tomas, [address] [place] [address], [place], [address] . tel:[phone] [facility] [employer], [address], [place], [place], [address] , tel:[phone] [place] Long-term use of immunosuppressa nt medication 8 Genoveva Rothman. [address] [place] [address], [place], [place], [address], [place]. tel:[phone] Referring Provider: Stephan Tomas, [address] [place] [address], [place], [address] . tel:[phone] [facility], [address], [place], [place], [address] , tel: [phone] [place] Spondylosis of lumbar region without myelopathy or radiculopathyOs teoarthritis of both knees, unspecified osteoarthritis typeRheumatoid arthritis of multiple sites with negative rheumatoid factorHypertens maritza kidney disease with chronic kidney disease stage IIIChronic kidney disease, stage 3 (moderate)ADD (attention deficit disorder)Modera te episode of recurrent major depressive disorderAnxiety state, unspecifiedObes ity (BMI 30-39.9)Vitamin D deficiencyErect ile dysfunction of organic originPre-diabe tesBody mass index (BMI) 34.0-34.9, adult Lex-2 0-201 8 Genoveva Rothman. [address] [place] [address], [facility] [address], [place], [place], [address], [place]. tel:[phone] Referring Provider: Stephan Tomas, [address] [place] [address], [place], [address] . tel:[phone] [employer] [address], [place], [place], [address] , tel: [phone] [place] Spondylosis of lumbar region without myelopathy or radiculopathyOs teoarthritis of both knees, unspecified osteoarthritis typeRheumatoid arthritis of multiple sites with negative rheumatoid factorHypertens maritza kidney disease with chronic kidney disease stage IIIChronic kidney disease, stage 3 (moderate)ADD (attention deficit disorder)Modera te episode of recurrent major depressive disorderAnxiety state, unspecifiedObes ity (BMI 30-39.9)Vitamin D deficiencyErect ile dysfunction, unspecified erectile dysfunction typePre-diabete sBody mass index (BMI) 34.0-34.9, adultRecurrent sinusitisEncoun ter for immunizationNe k pain Apr-0 5-201 8 Genoveva Rothman. [address] [place] [address], [place] [address], [place], [address], [place]. tel:[phone] Referring Provider: Stephan Tomas, [address] [place] [address], [place], [address] . tel:[phone] [facility] [address], [place], [place], [address] , tel:[phone] [place] Spondylosis of lumbar region without myelopathy or radiculopathyOs teoarthritis of both knees, unspecified osteoarthritis typeLeft foot painADD (attention deficit disorder)Modera te episode of recurrent major depressive disorderAnxiety state, unspecifiedObes ity (BMI 30-39.9)Chronic kidney disease, stage 3 (moderate)Hyper tensive kidney disease with chronic kidney disease stage IIIRheumatoid arthritis, involving unspecified site, unspecified rheumatoid factor presenceVitamin D deficiencyErect ile dysfunction, unspecified erectile dysfunction typePre-diabete s 8 Genoveva Rothman. [facility], [facility] [address], [place], [place], [address], [place]. tel:[phone] Referring Provider: Stephan Tomas, [address] [place] [address], [place], [address] . tel:[phone] [facility] [employer], [address], [place], [address] , [place] tel: [phone] [place] Low back pain without sciatica, unspecified back pain laterality, unspecified chronicityLung granulomaAcute pain of both kneesLeft foot pain 7 Genoveva Rothman. [facility], [facility] [address], [place], [place], [address], [place]. tel:[phone] [facility] [employer], [address], [place], [address] , [place] tel: [phone] [place] Low back pain without sciatica, unspecified back pain laterality, unspecified chronicityPain in both handsADD (attention deficit disorder)Modera te episode of recurrent major depressive disorderAnxiety state, unspecifiedObes ity (BMI 30-39.9)Essenti al hypertensionEre ctile dysfunction, unspecified erectile dysfunction typePre-diabete sEncounter for screening for lipoid disordersLung granulomaAcute pain of both kneesLeft foot painVitamin D deficiencyRecur rent sinusitisAbnorm al glucoseEncounte r for screening for malignant neoplasm of prostate 7 Genoveva Rothman. [address] [place] [address], [place] [address], [place], [address], [place]. tel:[phone] Referring Provider: Stephan Tomas, [facility], [place], [address] . tel:[phone] [employer], [address], [place], [place], [address] , [place] tel: [phone] [place] Low back pain without sciatica, unspecified back pain laterality, unspecified chronicityPain in both handsADD (attention deficit disorder)Modera te episode of recurrent major depressive disorderAnxiety state, unspecifiedCont usion of left foot, initial encounter Genoveva Rothman. [address] [place] [address], [address], [place], [place], [address], [place]. tel:[phone] Referring Provider: Stephan Tomas, [address] [place] [address], [place], [address] . tel:[phone] [facility] [employer], [address], [place], [place], [address] , tel: [phone] [place] Essential hypertensionMod erate episode of recurrent major depressive disorderADD (attention deficit disorder)Anxiet y state, unspecifiedUnco mplicated asthma, unspecified asthma severityLow back pain without sciatica, unspecified back pain laterality, unspecified chronicityPre-d iabetesObesity (BMI 30-39.9)Pain in both hands Genoveva Rothman. [address], [facility] [address], [place], [place], [address], . tel:[phone] Referring Provider: Stephan Tomas, [address] [place] [address], [place], [address] . tel:[phone] [employer], [address], [place], [address] , [place] tel: [phone] [place] Low back pain without sciatica, unspecified back pain laterality, unspecified chronicityADD (attention deficit disorder)Modera te episode of recurrent major depressive disorderAnxiety state, unspecifiedUnco mplicated asthma, unspecified asthma severityPre-brenda betesErectile dysfunction, unspecified erectile dysfunction typeEssential hypertensionObe sity (BMI 30-39.9)Burn of skin Genoveva Rothman. [facility], [facility] [address], [place], [place], [address], [place]. tel:[phone] Referring Provider: Stephan Tomas, [address] [place] [address], [place], [address] . tel:[phone] [employer], [address], [place], [address] , [place] tel:[phone] [place] No Information Genoveva Rothman. [address] [place] [address], [facility] [address], [place], [place], [address], [place]. tel:[phone] [employer], [address], [place], [address] , [place] tel:[phone] [place] Low back pain without sciatica, unspecified back pain laterality, unspecified chronicityEssen tial hypertensionHyp erlipidemia, unspecified hyperlipidemia typeMorbid obesity due to excess caloriesAnxiety state, unspecifiedUnco mplicated asthma, unspecified asthma severityADD (attention deficit disorder)Erecti le dysfunction, unspecified erectile dysfunction typeHerpes zoster without complicationDys hidrotic eczemaPre-diabe tesAllergic rhinitis, unspecified allergic rhinitis typeChronic sinusitis, unspecified locationModerat e episode of recurrent major depressive disorderAcute pain of right knee Genoveva Rothman. [address] [place] [address], [place] [address], [place], [place], [address], [place]. tel:[phone] Referring Provider: Stephan Tomas, [address] [place] [address], [place], [address] . tel:[phone] [employer], [address], [place], [address] , [place] tel: [phone] [place] Low back pain without sciatica, unspecified back pain laterality, unspecified chronicityEssen tial hypertensionHyp erlipidemia, unspecified hyperlipidemia typeMorbid obesity due to excess caloriesAnxiety state, unspecifiedUnco mplicated asthma, unspecified asthma severityADD (attention deficit disorder)Erecti le dysfunction, unspecified erectile dysfunction typeHerpes zoster without complicationDys hidrotic eczemaPre-diabe tesAllergic rhinitis, unspecified allergic rhinitis typeRecurrent major depressive disorder, in full remissionChroni c sinusitis, unspecified location Genoveva Rothman. [address] [place] [address], [place], [place], [address], [place]. tel:[phone] Referring Provider: Stephan Tomas, [address] [place] [address], [place], [address] . tel:[phone] [facility], [address], [place], [address] , tel: [phone] [place] Essential hypertensionHyp erlipidemia, unspecified hyperlipidemia typeMorbid obesity due to excess caloriesMild episode of recurrent major depressive disorderAnxiety state, unspecifiedADD (attention deficit disorder)Uncomp licated asthma, unspecified asthma severityErectil e dysfunction, unspecified erectile dysfunction typeHerpes zoster without complicationGas troesophageal reflux disease without esophagitisDysh idrotic eczemaPre-diabe tesAllergic rhinitis, unspecified allergic rhinitis typeFall, initial encounterLow back pain without sciatica, unspecified back pain laterality, unspecified chronicityAcute recurrent sinusitis, unspecified locationPain in both knees, unspecified chronicity Genoveva Rothman. [address] [place] [address], [place], [address], [place]. tel:[phone] Referring Provider: Stephan Tomas, [address] [place] [address], [place], [address] . tel:[phone] [facility] [address], [place], [place], [address] , [place] tel: [phone] [place] Acute recurrent sinusitis, unspecified locationEssenti al hypertensionHyp erlipidemia, unspecified hyperlipidemia typeADD (attention deficit disorder)Mild episode of recurrent major depressive disorderAnxiety state, unspecifiedUnco mplicated asthma, unspecified asthma severityErectil e dysfunction, unspecified erectile dysfunction typeMyalgiaVita min D deficiencyPain in both knees, unspecified chronicityGastr oesophageal reflux disease without esophagitisDysh idrotic eczemaPre-diabe tesAllergic rhinitis, unspecified allergic rhinitis typeEncounter for screening for malignant neoplasm of prostateRight-s ided back pain, unspecified back location, unspecified chronicityMorbi d obesity due to excess caloriesHerpes zoster without complication 6 Genoveva Rothman. [address] [place] [address], [place], [address], [place]. tel:[phone] Referring Provider: Stephan Tomas, [address] [place] [address], [place], [address] . tel:[phone] [employer], [address], [place], [place], [address] , [place] tel: [phone] [place] Benign essential HTNADD (attention deficit disorder)Mild intermittent asthma without complicationAnx iety state, unspecifiedMajo r depressive disorder, recurrent, in partial remissionBilate ral knee painGastroesoph ageal reflux disease, esophagitis presence not specifiedDyshid rotic eczemaHerpes zoster without complicationMor bid obesity due to excess calories Feb- 6 Genoveva Rothman. [address] [place] [address], [place] [address], [place], [place], [address], [place]. tel:[phone] Referring Provider: Stephan Tomas, [address] [place] [address], [place], [address] . tel:[phone] [employer], [address], [place], [place], [address] , [place] tel: [phone] [place] Benign essential HTNADD (attention deficit disorder)Mild intermittent asthma without complicationAnx iety state, unspecifiedBila teral knee painGastroesoph ageal reflux disease, esophagitis presence not specifiedDyshid rotic eczemaHerpes zoster without complicationDep ression, major, recurrent, in remission 5 Genoveva Rothman. [address] [place] [address], [place], [place], [address], [place]. tel:[phone] Referring Provider: Stephan Tomas, [address] [place] [address], [place], [address] . tel:[phone] [employer] [address], [place], [place], [address] , [place] tel: [phone] [place] Essential hypertensionUns pecified asthma, uncomplicatedAn xiety disorder, unspecifiedMajo r depressive disorder, recurrent, in partial remissionMorbid (severe) obesity due to excess caloriesUnspeci fied chronic otitis externa, unspecified earVitamin D deficiency, unspecifiedCat scratch of left hand, initial encounter ^Scratched by cat, initial encounterAcute recurrent sinusitis, unspecified location 5 Genoveva Rothman. [address] [place] [address], [facility] [address], [place], [place], [address], [place]. [phone] Referring Provider: Stephan Tomas, [address] [place] [address] [address], [place], [address] . tel:[phone] [facility], [address], [place], [place], [address] , tel: [phone] [place] HypertensionHyp erlipidemiaAsth maAnxietyMajor depressive disorder, recurrent, in remissionMorbid obesityChronic otitis externaVitamin D deficiency 5 Genoveva Rothman. [address] [place] [address], [facility] [address], [place], [place], [address], [place]. [phone] Referring Provider: Stephan Tomas, [address] [place] [address], [place], [address] . tel:[phone] [facility], [address], [place], [place], [address] , tel: [phone] [place] HypertensionAst hmaDepressive disorder, not elsewhere classifiedAnxie tyMorbid obesityChronic otitis externaVitamin D deficiency 5 Genoveva Rothman. [address] [place] [address], [facility] [address], [place], [place], [address], [place]. tel:[phone] Referring Provider: Stephan Tomas, [address] [place] [address], [place], [address] . tel:[phone] [facility], [address], [place], [place], [address] , tel:[phone] [place] Acute sinusitisHyperl ipidemiaHyperte nsion, benign 5 Genoveva Rothman. [address] [place] [address], [facility] [address], [place], [place], [address], [place]. tel:[phone] Referring Provider: Stephan Tomas, [address] [place] [address], [place], [address] . tel:[phone] [facility], [address], [place], [place], [address] , tel:[phone] [place] HypertensionAtt ention deficit disorder of childhood without meAsthmaKnee pain, bilateralPosthe rpetic neuralgiaMorbid obesityHistory of dental abscess 5 Genoveva Rothman. [address] [place] [address], [place] [address], [place], [place], [address], [place]. tel:[phone] Referring Provider: Stephan Tomas, [address] [place] [address], [place], [address] . tel:[phone] [facility], [address], [place], [place], [address] , [place] tel:[phone] [place] HypertensionAst hmaPostherpetic neuralgiaMorbid obesityKnee pain, bilateral Jun- 5 Genoveva Rothman. [address] [place] [address], [place] [address], [place], [place], [address], [place]. tel:[phone] Referring Provider: Stephan Tomas, [address] [place] [address], [place], [address] . tel:[phone] [facility] [address], [place], [place], [address] , [place] tel:[phone] [place] Postherpetic neuralgiaEczema ADD (attention deficit disorder) without hyperactivityMa raman depressive disorder, recurrent, in remissionAnxiet yAsthmaChronic rhinitisHyperli pidemiaHyperten susan, benign 5 Genoveva Rothman. [address] [place] [address], [place] [address], [place], [place], [address], [place]. tel:[phone] Referring Provider: Stephan Tomas, [address] [place] [address], [place], [address] . tel:[phone] [facility], [address], [place], [place], [address] , tel: [phone] [place] AnxietyADD (attention deficit disorder) without hyperactivityRa shKnee pain, bilateralMorbid obesityEczema 5 Genoveva Rothman. [address] [place] [address], [address], [place], [place], [address], . tel:[phone] Referring Provider: Stephan Tomas, [address] [place] [address] [address], [place], [address] . tel:[phone] [facility], [address], [place], [place], [address] , tel: [phone] [place] Knee pain, bilateralRight foot painAnxietyEcze ma 4 Genoveva Rothman. [address] [place] [address], [place] [address], [place], [place], [address], . tel:[phone] Referring Provider: Stephan Tomas, [address] [place] [address], [place], [address] . tel:[phone] [facility], [address], [place], [place], [address] , tel: [phone] [place] HypertensionHyp erlipidemiaMajo r depressive disorder, recurrent episode, moderateAnxiety Knee painGERD (gastroesophage al reflux disease)Mental status alteration 4 Genoveva Rothman. [address] [place] [address], [place] [address], [place], [address], [place]. tel:[phone] Referring Provider: Stephan Tomas, [address] [place] [address], [place], [address] . tel:[phone] [facility], [address], [place], [place], [address] , tel: [phone] [place] Screening for depressionAtten tion deficit disorder of childhood without meObesityHypert ensionDyshidrot ic eczemaHyperlipi demiaChronic cardiopulmonary diseaseMajor depressive disorder, recurrent episode, moderateAnxiety 4 Genoveva Rothman. [address] [place] [address], [facility] [address], [place], [place], [address], [place]. tel:[phone] Referring Provider: Stephan Tomas, [address] [place] [address], [place], [address] . tel:[phone] [facility], [address], [place], [place], [address] , tel:[phone] [place] AsthmaDiastolic dysfunctionAnxi etyHypertension , benignHyperlipi demiaMorbid obesityChronic otitis externaEczemaDe pression, major, recurrent, in partial remissionFood allergy 4 Genoveva Rothman. [address] [place] [address], [place] [address], [place], [place], [address], [place]. tel:[phone] Referring Provider: Stephan Tomas, [address] [place] [address], [place], [address] . tel:[phone] [facility], [address], [place], [place], [address] , [place] tel:[phone] [place] AsthmaAnxietyHy perlipidemiaBen ign essential hypertensionObe sityChronic otitis externa 4 Genoveva Rothman. [address] [place] [address], [place] [address], [place], [place], [address], [place]. tel:[phone] Referring Provider: Stephan Tomas, [address] [place] [address], [place], [address] . tel:[phone] [facility], [address], [place], [place], [address] , [place] tel:[phone] [place] Shortness of breathSwelling of right lower extremity 0 4 Basbibbehilda Costa. [address] [place] [address], [place], [place], [address], [place]. tel:[phone] Referring Provider: Stephan Tomas, [address] [place] [address], [place], [address] . tel:[phone] [facility], [address], [place], [place], [address] , tel:[phone] [place] Allergic drug rash due to anti-infective agentOtitis mediaEczema 4 Genoveva Rothman. [address] [place] [address], [place] [address], [place], [place], [address], [place]. tel:[phone] Referring Provider: Stephan Tomas, [address] [place] [address], [place], [address] . tel:[phone] [facility], [address], [place], [place], [address] , tel: [phone] [place] Attention deficit disorder of childhood without meAnxiety state, unspecifiedAsth ma (asthmatic bronchitis)Rash of handsHypertensi onHealthcare maintenanceObes ityPrediabetes 4 Genoveva Rothman. [address] [place] [address], [place] [address], [place], [place], [address], . tel:[phone] Referring Provider: Stephan Tomas, [address] [place] [address], [place], [address] . tel:[phone] [employer], [address], [place], [place], [address] , tel: [phone] [place] Attention deficit disorder without mention of hyperactivityAs thmaHypertensio n, BenignObesityAn xiety 3 Genoveva Rothamn. [address] [place] [address], [place] [address], [place], [place], [address], . tel:[phone] Referring Provider: Stephan Tomas, [address] [place] [address], [place], [address] . tel:[phone] [facility], [address], [place], [place], [address] , tel:[phone] [facility] AsthmaContact dermatitis and other eczema due to other specified agentsChronic rhinitis 3 Collin Joe. [address], [address], . tel:[phone] Referring Provider: Stephan Tomas, [address] [place] [address], [place], [address] . tel:[phone] [employer], [address], [place], [place], [address] , tel: [phone] [place] Attention deficit disorder without mention of hyperactivityIm potence of organic originASTHMA,UN SPECIFIED TYPE, UNSPECIFIEDObes ity, unspecified Nov-3 3 Genoveva Rothman. [address] [place] [address], [place] [address], [place], [address], [place]. tel:[phone] Referring Provider: Stephan Tomas, [address] [place] [address], [place], [address] . tel:[phone] [employer], [address], [place], [place], [address] , tel: [phone] [facility] ASTHMA, UNSPECIFIED TYPE, WITH (ACUTE) EXACERBATION 3 Radha Sarabia. [address] [facility] [address], [place], [place], [address]. [phone] Referring Provider: Heath Polanco, [address] [place] [address], [address] . tel:[phone] [facility] [employer], [address], [place], [place], [address] , tel: [phone] [facility] Other Dyspnea/Respira tory AbnormalitiesCh ronic rhinitisEsophag eal reflux 3 Collin Joe. [address] [place] [address], [address], [address], [place]. tel:[phone] Referring Provider: Stephan Tomas, [address] [place] [address], [place], [address] . tel:[phone] [facility] [employer], [address], [place], [place], [address] , tel: [phone] [place] ASTHMA,UNSPECIF IED TYPE, UNSPECIFIEDChes t painAttention deficit disorder without mention of hyperactivityAl lergic rhinitis, cause unspecifiedObes ity, unspecified 3 Genoveva Rothman. [address] [place] [address], [address], [place], [place], [address], . tel:[phone] Referring Provider: Stephan Tomas, [address] [place] [address], [place], [address] . tel:[phone] [facility], [address], [place], [place], [address] , [place] tel: [phone] [place] Routine general medical examination at a health care facility 3 Genoveva Rothman. [address] [place] [address], [address], [place], [place], [address], [place]. tel:[phone] [facility], [address], [place], [place], [address] , [place] tel: [phone] [place] Attention deficit disorder without mention of hyperactivityAn xiety state, unspecifiedDepr essive disorder, not elsewhere classifiedAller gic rhinitis, cause unspecifiedObes ity, unspecified 3 Genoveva Rothman. [address] [place] [address], [address], [place], [place], [address], [place]. tel:[phone] Referring Provider: Stephan Tomas, [address] [place] [address], [place], [address] . tel:[phone] [facility] [employer], [address], [place], [place], [address] , [place] tel: [phone] [place] Acute upper respiratory infections of unspecified siteAttention deficit disorder without mention of hyperactivityOb esity, unspecifiedDepr essive disorder, not elsewhere classifiedNEED FOR PROPHYLACTIC VACCINATION AND INOCULATION, OTHER VIRAL DISEASES 3 Genoveva Rothman. [address] [place] [address], [address], [place], [place], [address], [place]. tel:[phone] Referring Provider: Stephan Tomas, [address] [place] [address], [place], [address] . tel:[phone] [facility] [employer], [address], [place], [place], [address] , [place] tel: [phone] [place] Back painAttention deficit disorder of childhood without meAnxiety state, unspecifiedImmu nization dueObesityGERD (gastroesophage al reflux disease)NEED FOR PROPHYLACTIC VACCINATION AND INOCULATION, INFLUENZANeed for prophylactic vaccination and inoculation against streptococcus pneumoniae [pneumococcus]I mpotence of organic origin 2 Genoveva Rothman. [address] [place] [address], [place] [address], [place], [address], [place]. tel:[phone] Referring Provider: Stephan Tomas, [address] [place] [address], [place], [address] . tel:[phone] [facility] [employer], [address], [place], [place], [address] , [place] tel: [phone] [place] Obesity, unspecifiedElev ated blood pressure reading without diagnosis of hypertensionAnx iety state, unspecifiedAtte ntion deficit disorder without mention of hyperactivityOb esity, unspecified 2 Genoveva Rothman. [address] [place] [address], [place] [address], [place], [place], [address], [place]. tel:[phone] Referring Provider: Stephan Tomas, [address] [place] [address], [place], [address] . tel:[phone] [employer], [address], [place], [place], [address] , [place] tel: [phone] [place] Screening for venereal diseasePharyngi tisThrush 2 Genoveva Rothman. [address] [place] [address], [place] [address], [place], [address], [place]. tel:[phone] Referring Provider: Stephan Tomas, [address] [place] [address], [place], [address] . tel:[phone] [facility] [employer], [address], [place], [place], [address] , [place] tel: [phone] [facility] Health MaintenanceAtte ntion deficit disorder of childhood without meAnxiety state, unspecifiedelev ated bp s dx of htnAllergic rhinitis, cause unspecifiedEsop hageal refluxobesitySc reening for diabetes mellitusRoutine general medical examination at a health care facility 2 Genoveva Rothman. [address], [address], [place], [place], [address], . tel:[phone] Referring Provider: Stephan Tomas, [address] [place] [address] [address], [place], [address] . tel:[phone] [facility], [address], [place], [place], [address] , tel: [phone] [facility] 2 Ervin Burton. [address], [address], [place], [place], [address], . tel:[phone] [facility], [address], [place], [place], [address] , tel: [phone] [place] Allergic rhinitis, cause unspecifiedAnxi ety state, unspecifiedASTH MA,UNSPECIFIED TYPE, UNSPECIFIEDAtte ntion deficit disorder of childhood without mention of hyperactivity 1 Genoveva Rothman. [address] [place] [address], [address], [place], [place], [address], . tel:[phone] Referring Provider: Stephan Tomas, [address] [place] [address], [place], [address] . tel:[phone] Family History Family Member Type Diagnosis Age At Onset Paternal uncle Problem (finding) Diabetes mellitus Mother Problem (finding) Cancer - tongue (Cause Of ) Maternal grandmother Problem (finding) stroke Mother Problem (finding) Problem (finding) Family history of hyper tension Sister Problem (finding) asthma Immunizations Vaccine Date Status Comments Pneumococcal polysaccharide PPV23 administered Source: New Immuniza tion Record Pneumococcal conjugate PCV 13 administere d Source: New Immunization Record Zoster administered Note: [facility] [id number] ; Source: New Immunization Record Pneumo (2 yrs or older) (PPV23) administe red Note: [facility] [id number] ; Source: New Immunization Record Flu (split) (3 yrs or older) administered Note: [facility] [id number] ; Source: New Immunization Record Tdap administered Source: Other P rovider Payers Payer name Insurance type Covered republican ID Ellen infante(s) MEDICARE MB [id number] [facility] MDCR SUPPLEMENT ONLY CI [id number] MEDICARE MB [id number] [facility] MDCR SUPPLEMENT ONLY CI [id number] MEDICARE MB [id number] [employer] MDCR SUPPLEMENT ONLY CI [id number] Social History Type Description Quantity Date Captured Comments Sex Male Smoking Status No Information Sexual Orientation Lesbian, barahona or homosexual Gender Identity Male Chief Complaint And Reason For Visit No Information Reason For Referral Reason For Referral No Information Plan Of Treatment Date Type Action Status Goal Dietary manageme nt education, guidance, and counseling completed Goal Dietary manageme nt education, guidance, and counseling completed Goal Dietary manageme nt education, guidance, and counseling completed Goal Dietary manageme nt education, guidance, and counseling completed Referral Ordered: X-ray L-S spine 4+ views ordered Referral Ordered: MRI any jt lower extrem w/o contrast matrl Left knee ordered Future Order: Radiology Order XR foot left, 2 views Left ([id number]), Sent on: Sent History Of Present Illness Encounter Date Complaint History Of Prese nt Illness Chronic condition RA/ RUEL Knee O A: Notes med compliance with hydroxychloroquine. Reports following with Dr. Tineo. Hx of fall: No further falls reported. HTN with CKD III: Pt reports med compliance. No recent CP, SOB, palpitations, edema reported. No decreased urinary output reported. Lumbar Spondylosis: Pt reports med compliance. Worsened pain since the fall. Eczema: Pt reports med compliance. No worsening symptoms reported. ADD: Pt reports he has not been taking Adderall as often. Pt would like to go down on Adderall. No palpitations, insomnia reported.Depression/ Anxiety: Patient reports med compliance. Reports that he threw away his Xanex by accident so he began using more pain medication, which was from a new supplier. Notes that the pain medication gave him heart palpitations and SOB. Reports that he had added clonazepam to his Alprazolam but he no longer needs the clonazepam because it did not work. No SI/ HI. Obesity: Reports that since his sinuses and teeth have become less infected, he feels much better and he has been able to move more and build more muscle tone. ED: Pt reports med compliance. No new symptoms reported Pre-diabetes: No polydipsia, polyuria reported. Vit D Def: Pt continues Vit D supplement daily - 1000 IU.Leukocytosis: Per labs. RHM: Reports he could not see because there was puss going up to his eyes from his sinuses. States that there was puss draining out of his nose. Notes he gargled backwards and the leans forward to get rid of the puss everyday for 6 weeks. Reports that the sinsuses have cleared somewhat and he plans to see the ENT at [facility], Dr. Hussein. Chronic condition RA/ RUEL Knee O A: Notes med compliance with hydroxychloroquine. Reports following with Dr. Tineo but waiting to do any procedures until teeth were fully resolved. With Dr. Tineo, his BP was 114/78. Notes that Dr. Tineo took him off the Orencia because he is in remission. Since the fall, notes severe knee pain. Notes that he is taking two pain pills to go to sleep because the pain is so extreme. Reports that Dr. Tineo gave him shots in his knees which did not work this time. Notes that Dr. Huber, ortho, left and he needs a new orthopedist. NoteHx of fall: States he recently fell on his backside one week ago after tripping on the stairs. Reports he can barely walk and he has never had so much pain in all his life. Notes that he is wearing knee braces. HTN with CKD III: Pt reports med compliance. Reports that his BP has been around 114/78 and he does not know why it hurts today. No recent CP, SOB, palpitations, edema reported. No decreased urinary output reported. Lumbar Spondylosis: Pt reports med compliance. Worsened pain since the fall. Eczema: Pt reports med compliance. No worsening symptoms reported. ADD: Pt reports he has not been taking Adderall as often. No palpitations, insomnia reported.Depression/ Anxiety: Patient reports med compliance. No SI/ HI. Obesity: No changes to diet/ exercise reported. ED: Pt reports med compliance. No new symptoms reported Pre-diabetes: No polydipsia, polyuria reported. Vit D Def: Pt continues Vit D supplement daily - 1000 IU.Leukocytosis: Per labs. RHM: Reports that he went to his dentist and told him about his pain and the dentist said there was nothing wrong. Pt notes that he gave the dentist another chance but the dentist insisted there was nothing wrong. He went to another dentist that said he was filled with infection and decay around the left jaw and sinuses. Pt brought his 24 decayed teeth in that the new dentist removed. Reports that she drained the infection, put him on clindamycin, and fixed the decay and replaced the teeth. Chronic conditions Tooth Pain: P t reports he has pocket filled with blood in his upper right jaw. He reports blood and other stuff comes out when he brushes his teeth. Pain in left upper jaw. States he called his dentist and their panoramic x-ray machine is currently broken so he did not schedule an appointment. RA/ RUEL Knee OA: Pt reports med compliance. Holding Orencia per Dr. Tineo while on amoxicillin. Pt reports having MRI, did see Dr. Mayo marroquin who states he needs knee surgery but is unable to proceed due to current infection. Had injection which did improve pain. Chronic Sinusitis: Pt reports fever of 101.7F last week with sick contact - . Took the antibiotics he had on hand. Reports sinus pressure, ear pain, pain inside mucous membranes, and cough. HTN with CKD III: Pt reports med compliance. No recent CP, SOB, palpitations, edema reported. No decreased urinary output reported. Lumbar Spondylosis: Pt reports he has not been taking oxycodone as often. States he wanted to discuss back pain with lopez but was unable to. Eczema: Pt reports med compliance. No worsening symptoms reported. ADD: Pt reports he has not been taking Adderall as often. No palpitations, insomnia reported.Depression/ Anxiety: Patient reports med compliance, requests refill of alprazolam today. Mood irritable and anxious due to medical problems over the last two weeks due to sinusitis and tooth pain. No SI/ HI. Obesity: No changes to diet/ exercise reported. ED: Pt reports med compliance. No new symptoms reported Pre-diabetes: No polydipsia, polyuria reported. Vit D Def: Pt continues Vit D supplement daily - 1000 IU. chronic condition f/u HTN with C KD III: Pt reports med compliance. No recent CP, SOB, palpitations, edema reported. No decreased urinary output reported. Lumbar Spondylosis: Pt reports med compliance. No worsening pain reported. Acute Left Knee Pain: Pt reports falling on his left knee while working on his home a few days ago. He saw Dr. Tineo this morning who told him he needed MRI and gave him a cortisone injection which withdrew blood per patient. He reports moderate to severe pain and weakness in the left knee with radiation down to his left ankle. Does not want to use cane b/c he does not want to get used it. RA/ RUEL Knee OA: Pt reports med compliance with hydroxychloroquine. Reports that Dr. Tineo is going to work on getting new intravenous treatment for RA. No worsening joint pain except left knee reported. Eczema: Pt reports rash on the dorsal aspect on his right hand with severe itching. Also reports blood blister on his left eye several weeks ago that has resolved. ADD: Pt reports med compliance with Adderall. No palpitations, insomnia reported.Depression/ Anxiety: Patient reports med compliance. He states he had to put his dog down recently and has been sad. Anxiety symptoms controlled. No SI/ HI. Chronic Sinusitis: No symptoms reported today. Obesity: No changes to diet/ exercise reported. ED: Pt reports med compliance. No new symptoms reported Pre-diabetes: No polydipsia, polyuria reported. Vit D Def: Pt continues Vit D supplement daily - 1000 IU.RHM: Pt reports he burned his left hand with grease May 26, healed today. Functional Status Date Functional Assessmen t No Information Instructions Date Instruction Additional Infor caryn BMI of 37.7 today. E ncouraged healthy dietary choices and increased activity. Focus on drinking plenty of water daily and getting adequate sleep. Will continue to monitor.Follow up in 3 months. Charting performed by Idris Romo acting as scribe for Bro Villalobos. DO Genoveva I reviewed the chart and agree with and approve of the documentation. Related to Obesity (BMI 30-39.9) Continue treatment w ith Vit D 1000 IU supplements daily. Monitor. Related to Vitamin D deficiency Stable. Continue gloria atment with sildenafil citrate as directed. Monitor. 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 Per CXR . s/p injections which did not improve pain. Continue OTC Stop Pain for short term relief. Continue current pain medication as above. Follow up with ortho as planned. Related to Osteoarthritis of both knees, unspecified osteoarthritis type F/u with Dr. Chu nn/ Dr. Aguillon as routine. Continue treatment with triamcinolone-acetonide 0.5% cream. Notify of any worsening symptoms. Continue to monitor. Related to Dyshidrotic eczema Per labs. Monitor Related to Dipti kocytosis, unspecified type Stable. D/c treatmen t with clonazepam 0.5mg- 1 tab daily as needed for severe anxiety. Continue current treatment plan, alprazolam 2 mg. Recommend regular exercise to help improve symptoms. Will continue to monitor. Notify for persisting/worsening symptoms. Related to Anxiety state, unspecified Stable. Decrease cur rent treatment plan with Adderall 20 mg TID to one time daily. Notify with any worsening symptoms. Will continue to monitor. Related to ADD (attention deficit disorder) Last A1c was 5.7% on 12/2018. Encouraged patient to avoid processed sugars and to maintain a healthy, balanced low-carb diet with regular exercise. Will continue to monitor. Check A1c and lipid panelStatus: Able to self-manage condition. Goals: Your goal is to work on healthy eating habits. Barriers: No barriers to goal achievement have been identified Related to Pre-diabetes Stable. Make sure to drink plenty of water. Continue with good blood pressure and lipid control. Will continue to monitor. Related to Chronic kidney disease, stage 3 (moderate) Mood mostly stable. Continue treatment with sertraline 100 mg, 1.5 tablets daily. Recommend regular exercise to help increase mood. Will continue to monitor. Notify for any changes in mood or if developing SI/HI.Status: Able to self-manage condition. Goals: Your goal is to manage your medicine. Barriers: No barriers to goal achievement have been identified. Related to Moderate episode of recurrent major depressive disorder Uncontrolled likely secondary to fall and increased pain. Continue current treatment with losartan 100mg. Encouraged low-sodium diet. Will continue to monitor. Check CBC, CMP, TSH. Related to Hypertensive kidney disease with chronic kidney disease stage III Stable. Holding Bassem omid per Dr. Tineo. Continue treatment with hydroxychloroquine per Dr. Tineo, Follow up with Dr. Tineo as routine. Monitor. Related to Rheumatoid arthritis, involving unspecified site, unspecified rheumatoid factor presence Continue to wear knee braces. Re lated to Hx of fall Worsened. s/p surger y with Dr. Paula. Continue current treatment plan, oxycodone-APAP 10 mg-325 mg, q4h. Pt is resolving medication issues with pharmacy. Notify of any worsening symptoms. Will continue to monitor. 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 Related to [facility] for prostate cancer screening Last A1c was 5.6% on 08/2017. Encouraged patient to avoid processed sugars and to maintain a healthy, balanced low-carb diet with regular exercise. Will continue to monitor. Check A1c and lipid panelStatus: Able to self-manage condition. Goals: Your goal is to work on healthy eating habits. Barriers: No barriers to goal achievement have been identified Related to Pre-diabetes Per labs. Monitor Related to Dipti kocytosis, unspecified type Stable. Continue gloria atment with sildenafil citrate as directed. Monitor. 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 Monitor. Related to Vitamin D deficiency Mood mostly stable. Continue treatment with sertraline 100 mg, 1.5 tablets daily. Recommend regular exercise to help increase mood. Will continue to monitor. Notify for any changes in mood or if developing SI/HI.Status: Able to self-manage condition. Goals: Your goal is to manage your medicine. Barriers: No barriers to goal achievement have been identified. Related to Moderate episode of recurrent major depressive disorder Stable. Continue gloria atment with clonazepam 0.5mg- 1 tab daily as needed for severe anxiety. Continue current treatment plan, alprazolam 2 mg. Recommend regular exercise to help improve symptoms. Will continue to monitor. Notify for persisting/worsening symptoms. Related to Anxiety state, unspecified BMI of 37.3 today. E ncouraged healthy dietary choices and increased activity. Focus on drinking plenty of water daily and getting adequate sleep. Will continue to monitor.RHM: Declined flu vaccine. Follow up in 6 months. Charting performed by Idris Romo acting as scribe for Bro Villalobos. ARETHA Tomas reviewed the chart and agree with and approve of the documentation. Related to Obesity (BMI 30-39.9) F/u with Dr. Kimberley snowden/ Dr. Aguillon as routine. Continue treatment with triamcinolone-acetonide 0.5% cream. Notify of any worsening symptoms. Continue to monitor. Related to Dyshidrotic eczema Uncontrolled likely secondary to fall and increased pain. Continue current treatment with losartan 100mg. Encouraged low-sodium diet. Will continue to monitor. Check CBC, CMP, TSH. Related to Hypertensive kidney disease with chronic kidney disease stage III Stable. Make sure to drink plenty of water. Continue with good blood pressure and lipid control. Will continue to monitor. Related to Chronic kidney disease, stage 3 (moderate) Stable. Continue cur rent treatment plan, Adderall 20 mg. Notify with any worsening symptoms. Will continue to monitor. Related to ADD (attention deficit disorder) Worsened. Per CXR . s/p injections which did not improve pain. Recommend CBD oil but pt declined. Continue OTC Stop Pain for short term relief. Continue current pain medication as above. Refer to Dr. Thomas. Monitor. Related to Osteoarthritis of both knees, unspecified osteoarthritis type Worsened. s/p surger y with Dr. Paula. Continue current treatment plan, oxycodone-APAP 10 mg-325 mg, q4h. Notify of any worsening symptoms. Will continue to monitor. 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 Holding Bassem omid per Dr. Tineo. Continue treatment with hydroxychloroquine per Dr. Tineo, Follow up with Dr. Tineo as routine. Monitor. Related to Rheumatoid arthritis, involving unspecified site, unspecified rheumatoid factor presence Continue to wear kne e braces. Order X-ray. Related to Hx of fall Dietary management e ducation, guidance, and counseling Related to Body mass index (BMI) 37.0-37.9, adult Medication management Last A1c was 5.6% on 08/2017. Encouraged patient to avoid processed sugars and to maintain a healthy, balanced low-carb diet with regular exercise. Will continue to monitor.Status: Able to self-manage condition. Goals: Your goal is to work on healthy eating habits. Barriers: No barriers to goal achievement have been identified Related to Pre-diabetes Per labs. Monitor.F/ u in December as scheduled. Charting performed by Khadijah Cole, acting as scribe for Bro Tomas.Bro Tomas, DO: I reviewed the chart and agree with and approve of the documentation. Related to Leukocytosis, unspecified type with current use of amoxicillin, refilled today. Will monitor. Related to Chronic sinusitis, unspecified location Stable. Continue gloria atment with sildenafil citrate as directed. Monitor. 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 Encouraged healthy dietary choices and increased activity. Focus on drinking plenty of water daily and getting adequate sleep. Will continue to monitor. Related to Obesity (BMI 30-39.9) Continue treatment w ith Vit D 1000 IU supplements daily. Monitor. Related to Vitamin D deficiency Symptoms uncontrolle d in the last few weeks due to recent illness. Start treatment with clonazepam 0.5mg- 1 tab daily as needed for severe anxiety. Continue current treatment plan, alprazolam 2 mg. Recommend regular exercise to help improve symptoms. Will continue to monitor. Notify for persisting/worsening symptoms. Related to Anxiety state, unspecified on right hand. Will refer to derm due to many open areas on right hand and immunosuppressant medication for RA. Pt referred to Dr. Tran for consult. Continue treatment with triamcinolone-acetonide 0.5% cream. Notify of any worsening symptoms. Continue to monitor. Related to Dyshidrotic eczema Stable. Make sure to drink plenty of water. Continue with good blood pressure and lipid control. Will continue to monitor. Related to Chronic kidney disease, stage 3 (moderate) Stable. Continue cur rent treatment plan, Adderall 20 mg. Notify with any worsening symptoms. Will continue to monitor. Related to ADD (attention deficit disorder) Mood mostly stable. Continue treatment with sertraline 100 mg, 1.5 tablets daily. Recommend regular exercise to help increase mood. Will continue to monitor. Notify for any changes in mood or if developing SI/HI.Status: Able to self-manage condition. Goals: Your goal is to manage your medicine. Barriers: No barriers to goal achievement have been identified. Related to Moderate episode of recurrent major depressive disorder Stable. Holding Bassem omid while on amoxicillin per Dr. Tinoe. Continue treatment with hydroxychloroquine per Dr. Tineo, may start injection therapy. Follow up with Dr. Tineo as routine. Monitor. Related to Rheumatoid arthritis, involving unspecified site, unspecified rheumatoid factor presence Controlled. Continue current treatment with losartan 100mg. Encouraged low-sodium diet. Will continue to monitor. Related to Hypertensive kidney disease with chronic kidney disease stage III Per CXR 01/2013. Ron mitchell with Dr. Huber, ortho who recommends knee replacements once infection is clear. s/p injections which did improve pain. Continue OTC Stop Pain for short term relief. Continue current pain medication as above. Monitor. Related to Osteoarthritis of both knees, unspecified osteoarthritis type Improved. s/p surger y with Dr. Paula. Continue current treatment plan, oxycodone-APAP 10 mg-325 mg, q4h. Notify of any worsening symptoms. Will continue to monitor. 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 Discussed with patient that I really think he needs to start with dentis visit to assess this ongoing problem. Called Dr. Alegria's office with patient in the room today and scheduled appointment for 2:15pm tomorrow. I also plan to speak with Dr. Alegria in person. Related to Tooth pain Dietary management e ducation, guidance, and counseling Related to Body mass index (BMI) 36.0-36.9, adult Disease process Prevnar 23 vaccine a dministered today. F/u in 3 months. Charting performed by Khadijah Cole, acting as scribe for Bro Tomas.Bro Tomas, DO: I reviewed the chart and agree with and approve of the documentation. Related to Encounter for immunization on right hand. Will refer to derm due to many open areas on right hand and immunosuppressant medication for RA. Pt referred to Dr. Tran for consult. Continue treatment with triamcinolone-acetonide 0.5% cream. Notify of any worsening symptoms. Continue to monitor. Related to Dyshidrotic eczema s/p fall. With corti sone injection per Juan Houston today. MRI left knee w /contrast ordered today at [facility]. Will refer to lopez Hernandez as needed. Related to Acute pain of left knee Per labs. Monitor. Related to Le ukocytosis, unspecified type Continue treatment w ith Vit D 1000 IU supplements daily. Monitor. Related to Vitamin D deficiency Asymptomatic today. Has amoxicillin on hand. Will monitor. Related to Chronic sinusitis, unspecified location Last A1c was 5.6% on 09/2017. Encouraged patient to avoid processed sugars and to maintain a healthy, balanced low-carb diet with regular exercise. Will continue to monitor.Status: Able to self-manage condition. Goals: Your goal is to work on healthy eating habits. Barriers: No barriers to goal achievement have been identified Related to Pre-diabetes Stable. Continue gloria atment with sildenafil citrate as directed. Monitor. 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 Encouraged healthy dietary choices and increased activity. Focus on drinking plenty of water daily and getting adequate sleep. Will continue to monitor. Related to Obesity (BMI 30-39.9) Stable. Make sure to drink plenty of water. Continue with good blood pressure and lipid control. Will continue to monitor. Related to Chronic kidney disease, stage 3 (moderate) Mood stable. Continu e treatment with sertraline 100 mg, 1.5 tablets daily. Recommend regular exercise to help increase mood. Will continue to monitor. Notify for any changes in mood or if developing SI/HI.Status: Able to self-manage condition. Goals: Your goal is to manage your medicine. Barriers: No barriers to goal achievement have been identified. Related to Moderate episode of recurrent major depressive disorder Mood stable. Continu e current treatment plan, Adderall 20 mg, refilled today. Notify with any worsening symptoms. Will continue to monitor. Related to ADD (attention deficit disorder) Symptoms controlled. Continue current treatment plan, alprazolam 2 mg. Recommend regular exercise to help improve symptoms. Will continue to monitor. Notify for persisting/worsening symptoms. Related to Anxiety state, unspecified Stable. Continue gloria atment with hydroxychloroquine per Dr. Tineo. Follow up with Dr. Tineo as routine. Monitor. Related to Rheumatoid arthritis, involving unspecified site, unspecified rheumatoid factor presence Improved. s/p surger y with Dr. Paula. Continue current treatment plan, oxycodone-APAP 10 mg-325 mg, q4h, refilled today. Notify of any worsening symptoms. Will continue to monitor. 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 Continue current treatment with losartan 100mg. Encouraged low-sodium diet. Will continue to monitor. Related to Hypertensive kidney disease with chronic kidney disease stage III Per CXR 01/2013. Con tinue OTC Stop Pain for short term relief. Continue current pain medication as above. Monitor. Related to Osteoarthritis of both knees, unspecified osteoarthritis type Medication management Dietary management e ducation, guidance, and counseling Related to Body mass index (BMI) 36.0-36.9, adult Assessments Type Assessment Date No Information Patient Care Teams Name Effective Dates (start - stop) Status Members No Information
--- OUTSIDE RECORDS SUMMARY | 2024-04-19 05:04 | XMS_ITS ---
Author Organization [facility] Address [address] [facility] [address] [place], [place] [id number] Care Team Providers Care [place] Weaver Name Role Phone Ronald Cristobal Unavailable [phone] Migration, Provider Unavailable Unavailable Allergies Allergen (clinical drug ingredient) Drug/Non Drug Allergy documented on EMR Reaction Allergy Type Onset Date Status HYDROCODONE CP (uncoded) Unknown Allergy Active amoxicillin / clavulanate Augmentin Unknown Drug Allergy Active clindamycin Clindamycin Unknown Drug Allergy Act maritza REASON FOR VISIT [facility] Conversion Encounter Medications Medication SIG (Take, Route, Frequency, Duration) Notes Start Date End Date Status CLOBETASOL OINTMENT 0.05% 1 ALEXIS APPLIED TOPICALLY [...] once a day for 30 day(s) Active CIPRODEX 0.3%-0.1% 4 GTT IN EACH AFFECTED [...] times a day for 30 day(s) Active NexIUM 40 MG 1 cap(s) orally once a day for 30 day(s) Active oxyCODONE HCl 7.5 MG 1 TAB(S) ORALLY EVERY 6 HOURS *Please review and pick correct strength-formula tion from [employer] options. If intended option is not shown, discontinue and re-order from Quick Search* Active Amoxicillin 500 MG 1 cap(s) orally 3 times a day for 10 day(s) Active predniSONE 20 MG 1 tab(s) orally once a day for 7 day(s) Active TYLENOL WITH CODEINE #3 5/325MG 1 TAB(S) ORALLY EVERY 6 HOURS *Please review for potential replacement for e-prescription and drug interaction check* Active Encounters Encounter Location Date Provider Diagnosis [facility] [place] [address] [facility] [address] [place], [place] [phone] 03/10/2024 Provider Migration ACUTE OTITIS EXTERNA NEC 380.22 Assessments Encounter Date Diagnosis (ICD Code) Assessment Notes Treatment Notes Treatment Clinical Notes Section Notes 03/10/2024 ACUTE OTITIS EXTERNA NEC (ICD9-CM - 380.22) lt Plan Of Treatment Medication Medication Name Sig Start Date Stop Date Notes CIPRODEX 0.3%-0.1% 4 GTT IN EACH AFFECTED EAR 2 TIMES A DAY for 7 DAY(S) 07/04/2013 *Please review for potential replacement for e-prescription and drug interaction check* Progress Notes * Brian GODINEZDOB:1950 (74 yo M)Acc No.[id number]:03/10/2024 Patient:?Brian GODINEZ Provider:?Provider Migration :1950???Age:74 Y???Sex:Male Jerad e:03/10/2024 Address:[address] [place] [address] Subjective: * Chief Complaints: * ???1. Multum To Medispan Con version Encounter. * Medical History:? * Medications:?Taking Amoxicil obed 500 MG Capsule 1 cap(s) orally 3 times a day , Taking oxyCODONE HCl 7.5 MG TABLET 1 TAB(S) ORALLY EVERY 6 HOURS , Notes to Pharmacist: *Please review and pick correct strength-formulation from [employer] options. If intended option is not shown, discontinue and re-order from Quick Search*, Taking TYLENOL WITH CODEINE #3 5/325MG TABLET 1 TAB(S) ORALLY EVERY 6 HOURS , Notes to Pharmacist: *Please review for potential replacement for e-prescription and drug interaction check*, Taking predniSONE 20 MG Tablet 1 tab(s) orally once a day , Taking NexIUM 40 MG Capsule Delayed Release 1 cap(s) orally once a day , Taking Amphetamine-Dextroamphetamine 20 MG Tablet 1 tab(s) orally 2 times a day , Taking Citalopram Hydrobromide 20 MG Tablet 1 tab(s) orally once a day , Taking ALPRAZolam ER 0.5 MG Tablet Extended Release 24 Hour 1 tab(s) orally once a day (in the morning) , Taking hydroCHLOROthiazide 12.5 MG Capsule 1 cap(s) orally once a day , Taking Fluticasone Propionate 50 MCG/ACT Suspension 1 spray(s) intranasally once a day , Taking Symbicort 160-4.5 MCG/ACT Aerosol 2 puff(s) inhaled 2 times a day , Taking PROAIR HFA CFC FREE 90 MCG/INH AEROSOL 2 PUFF(S) INHALED 4 TIMES A DAY , Notes to Pharmacist: *Please review for potential replacement for e-prescription and drug interaction check*, Taking CLOBETASOL OINTMENT 0.05% SOLUTION 1 ALEXIS APPLIED TOPICALLY 2 TIMES A DAY , Notes to Pharmacist: *Please review for potential replacement for e-prescription and drug interaction check* * Allergies:?Clindamycin, Augm entin, HYDROCODONE CP. Objective: * Vitals:? * Physical Examination:? Assessment: * Assessment: 1.?ACUTE OTITIS EXTERNA NEC - 380.22???Notes :lt??? Plan: * Treatment: * * Electronic signature of Prov ider Migration on 04/19/2024 at 05:03 AM [employer] Sign off status: Pending * Provider:?Provider Migration Date:?03/10 Generated for Margie hess/Radha/Brad on:?04/19/2024 05:03 AM [employer]
== END 2024-04-13 07:21 | disposition home or self-care (01) ==
LOC: CHSLAB 07:22 → CHSTREATRM 07:35
PROVIDERS: PCP Internal Medicine; Visit Provider Internal Medicine
DX: M06.9 Rheumatoid arthritis, unspecified (principal); E03.9 Hypothyroidism, unspecified
CPT/HCPCS: 36415; 84439; 84442; 84443; 84481; 85027; 86376; 88184; 88185; 96365; J0129

== ENCOUNTER 2024-05-11 12:53 | Outpatient (CLI) | payer MEDICARE, SELFPAY ==
--- OUTSIDE RECORDS SUMMARY | 2024-05-11 13:01 | XMS_ITS | Continuity of Care Document ---
Author Organization [id number] Address [address] [place] [address] Phone Care Team Providers Care Mosaic Layer Name Role Phone Luis Fernando Soliman MD [...] Diagnoses Date Provider Providers Copied on Encounter [id number] - [employer], [address] [facility] [address], [place], [address], [place] tel: [phone] [facility] No Information 4 Janny Luis Fernando. [address], [place], [address]. tel: [phone] Referring Provider: Stephan Tomas, [address], [place], [address] . tel:[phone] OFFICE/OUTPT EM EST DETAILED/MOD ERATE 25 MINS [id number] - [employer], [address] [facility] [address], [place], [address], [place] tel: [phone] [facility] [place] Lower Ext. EdemaHypertension, BenignHypercholeste rolemiaUnspecified general medical examination 4 Ronen Childs. [address] [place], [id number] . [phone] Referring Provider: Stephan Tomas, [address], [place], [address] . tel:[phone] OFFICE/OUTPT EM EST DETAILED/MOD ERATE 25 MINS [id number] - [employer], [address] [facility] [address], [place], [address], [place] tel:[phone] [facility] [place] Hypertension, BenignHypercholeste rolemiaUnspecified general medical examinationLower Ext. Edema 4 Ronen Childs. [address] , [place], [id number] . [phone] Referring Provider: Stephan Tomas, [address] [facility] [address], [place], [address] . tel:[phone] [id number] - [employer], [address], [place], [address], tel:[phone] [facility] [place] No Information 4 Ronen Childs. [address] [place], [id number] . [phone] Referring Provider: Amadeo Cardenas, [address] [place], [address] . tel:[phone] OFFICE/OUTPT EM EST DETAILED/MOD ERATE 25 MINS [id number] - [employer], [address], [place], [address], [place] tel:[phone] [facility] [place] Hypertension, BenignShortness of Breath 4 Ronen Childs. [address] [place], [id number] . [phone] Referring Provider: Stephan Tomas, [address], [place], [address] . tel:[phone] OFFICE/OUTPT CONSULT EM COMPREH/MODE RATE 60 MINS [id number] - [employer] [employer], [address] [facility] [address], [place], [address], [place] tel: [phone] [facility] [place] Hypertension, BenignShortness of BreathMurmur 3 Ronen Childs. [address] [place], [id number] . tel: [phone] Referring Provider: Stephan Tomas, [address], [place], [address] . tel:[phone] [id number] - [facility], [address] [facility] [address], [place], [address], tel: [phone] [facility] No Information 3 Ronen Childs. [address] [place], [id number] . tel: [phone] Family History Family Member Type Diagnosis Age At Onset Maternal grandmother Problem (finding) stroke Family H/O Problem (finding) hypertension Sister Problem (finding) asthma family h/o Problem (finding) HTN Problem (finding) Paternal uncle Problem (finding) Maternal histo ry of diabetes mellitus Mother Problem (finding) Tongue cancer Payers Payer name Insurance type Covered green party ID Authorluis infante(s) [employer] [facility] [id number] Social History Type Description Quantity Date Captured [...]
--- OUTSIDE RECORDS SUMMARY | 2024-05-11 13:01 | XMS_ITS | Clinical Summary ---
Author Organization [facility] Address [address] [place] [address] Care Team Providers Care Bench Assembly Inspector Name Role Phone Unavailable Primary Care Provider [...] (1 - 1-dose 75+ series) 2027 Meningococcal B Vaccine Aged Out No l onger eligible based on patient's age to complete this topic Meningococcal Vaccine Aged Out No mynor rosalinda eligible based on patient's age to complete this topic RSV Immunizations Under 20 Months Aged Out No longer eligible based on patient's age to complete this topic
--- OUTSIDE RECORDS SUMMARY | 2024-05-11 13:02 | XMS_ITS | Continuity of Care Document ---
Author Organization [facility] Address [address] [place] [address] Phone Care Team Providers Care Powder Nipper Name Role Phone Julissa Yi Unavailable Unavailab [...] every day 20 MG - Active 03/30. [facility] should be the only office providing controlled [...] times every day 2 MG - Active [facility] should be the only office providing controlled [...] MG - Active Procedures Procedure Date OFFICE [id number] SYST BP LT 130 MM HG DIAST BP < 80 MM HG OFFICE [id number] SYST BP >= 140 MM HG6 IT DIAST BP 80-89 MM HG CBC, INC PLATELETS AND DIFFERENTIAL COMPREHEN METABOLIC PANEL CMP 9 HEMOGLOBIN A1C HGA1C, GLYCO LIPID PANEL PSA, TOTAL, SCREENING MEDICARE ONLY THYROID STIMULATION HORMONE(TSH) 2018 ROUTINE VENIPUNCTURE OFFICE [id number] SYST BP >= 140 MM HG6 IT DIAST BP >= 90 MM HG Advance Directives Directive Yes / No Effective Date File Name No Information Encounters Encounter Description Practice Location Reason(s) For Visit Diagnoses Date Provider Providers Copied on Encounter [facility], [address], [place], [place], [address] , [place] tel: [phone] [place] No Information 1 Bellahilda Julissa. [address], [place], [place], [address], [place]. [phone] [facility], [address], [place], [place], [address] , [place] tel: [phone] [place] No Information 0 Genoveva Rothman. [address], [facility], [place], [place], [address], [place]. [phone] OFFICE ORKWH-PCU-QZ TAILED [facility], [address], [place], [place], [address] , [place] tel: [phone] [place] Chronic condition (chief complaint) Body mass index [...] originObesity (BMI 30-39.9) 0 Genoveva Rothman. [address], [facility], [place], [place], [address], [place]. [phone] Referring Provider: Stephan Tomas, [address] [place] [address], [place], [address] . tel:[phone] [facility], [address], [place], [place], [address] , [place] tel:[phone] [place] No Information 9 Genoveva Rothman. [address] [place] [address], [place] [address], [place], [place], [address], [place]. tel:[phone] [facility], [address], [place], [place], [address] , [place] tel:[phone] [place] No Information 9 Genoveva Rothman. [address], [address], [place], [place], [address], [place]. [phone] [facility], [address], [place], [place], [address] , tel:[phone] [place] No Information 9 Genoveva Rothman. [address], [address], [place], [place], [address], [place]. tel:[phone] OFFICE [id number] [facility], [address], [place], [place], [address] , [place] tel: [phone] [place] Chronic condition (chief complaint) Body mass index [...] prostate cancer screening 9 Genoveva Rothman. [address], [facility], [place], [place], [address], [place]. tel:[phone] Referring Provider: Stephan Tomas [address] [place] [address], [place], [address] . tel:[phone] [facility], [address], [place], [place], [address] , [place] tel:[phone] [place] No Information 9 Genoevva Rothman. [address] [place] [address], [facility], [place], [place], [address], . tel:[phone] [facility], [address], [place], [place], [address] , [place] tel: [phone] [place] No Information Genoveva Rothman. [address], [facility], [place], [place], [address], . tel:[phone] OFFICE TRWED-KYF-CZ [facility], [address], [place], [place], [address] , [place] tel: [phone] [place] Chronic conditions (chief complaint) Spondylosis of lumbar [...] (BMI) 36.0-36.9, adultTooth pain Genoveva Rothman. [address], [place] [address], [place], [place], [address], [place]. tel:[phone] Referring Provider: Stephan Tomas, [address] [place] [address], [place], [address] . tel:[phone] [facility], [address], [place], [place], [address] , [place] tel: [phone] [place] chronic condition f/u (chief complaint) Spondylosis of [...] for immunizationDys hidrotic eczema 9 Genoveva Rothman. [facility] [address] [facility], [place], [place], [address], . tel:[phone] Referring Provider: Stephan Tomas, [address] [place], [place] [address], [place], [address] . tel:[phone] [facility], [address], [place], [place], [address] , tel:[phone] [place] Spondylosis of lumbar region without myelopathy or [...] (BMI) 33.0-33.9, adultHeat rash 9 Genoveva Rothman. [facility] [employer], [place] [address], [place], [place], [address], [place]. tel:[phone] Referring Provider: Stephan Tomas, [facility] [address], [place], [address] . tel:[phone] [facility], [address], [place], [place], [address] , [place] tel:[phone] [place] No Information 9 Genoveva Rothman. [facility] [employer], [place] [address], [place], [place], [address], [place]. tel:[phone] [facility], [address], [place], [place], [address] , tel: [phone] [place] Body mass index (BMI) 34.0-34.9, adultRheumatoid arthritis of multiple sites with negative rheumatoid factorRas 8 Genoveva Rothman. [address] [place] [address], [address], [place], [place], [address], . tel:[phone] Referring Provider: Stephan Tomas, [address] [place] [address] [address], [place], [address] . tel:[phone] [facility], [address], [place], [place], [address] , tel: [phone] [place] Body mass index (BMI) 33.0-33.9, adultChronic sinusitis, unspecified locationFort [facility] 8 Genoveva Rothman. [address] [place] [address], [place] [address], [place], [place], [address], . tel:[phone] Referring Provider: Stephan Tomas, [address] [place] [address] [address], [place], [address] . tel:[phone] [facility], [address], [place], [place], [address] , tel: [phone] [place] Eczema, unspecified typeSpondylosis of lumbar region without [...] index (BMI) 33.0-33.9, adult 8 Genoveva Rothman. [address] [place] [address], [address], [place], [place], [address], . tel:[phone] Referring Provider: Stephan Tomas, [address] [place] [address], [place], [address] . tel:[phone] [facility], [address], [place], [place], [address] , tel: [phone] [place] No Information 8 Genoveva Rothman. [address] [place] [address], [place], [place], [address], . tel:[phone] [facility], [address], [place], [place], [address] , [place] tel: [phone] [place] Spondylosis of lumbar region without myelopathy or [...] typeChronic sinusitis, unspecified location 8 Genoveva Rothman. [address] [place] [address], [place] [address], [place], [place], [address], [place]. tel:[phone] Referring Provider: Stephan Tomas, [address] [place] [address], [place], [address] . tel:[phone] [facility], [address], [place], [place], [address] , tel:[phone] [place] Long-term use of immunosuppressa nt medication 8 Genoveva Rothman. [address] [place] [address], [place], [place], [address], [place]. tel:[phone] Referring Provider: Stephan Tomas, [address] [place] [address], [place], [address] . tel:[phone] [facility], [address], [place], [place], [address] , tel: [phone] [place] Spondylosis of lumbar region without myelopathy or [...] 34.0-34.9, adult Lex-2 0-201 8 Genoveva Rothman. [address] [place] [address], [facility], [place], [place], [address], [place]. tel:[phone] Referring Provider: Stephan Tomas, [address] [place] [address], [place], [address] . tel:[phone] [facility] [address], [place], [place], [address] , tel: [phone] [place] Spondylosis of lumbar region without myelopathy or [...] k pain Apr-0 5-201 8 Genoveva Rothman. [address] [place] [address], [place] [address], [place], [place], [address], [place]. tel:[phone] Referring Provider: Stephan Tomas, [address] [place] [address], [place], [address] . tel:[phone] [facility] [address], [place], [place], [address] , tel:[phone] [place] Spondylosis of lumbar region without myelopathy or [...] erectile dysfunction typePre-diabete s 8 Genoveva Rothman. [employer] [facility], [place], [place], [address], [place]. tel:[phone] Referring Provider: Stephan Tomas, [address] [place] [address], [place], [address] . tel:[phone] [facility], [address], [place], [place], [address] , [place] tel: [phone] [place] Low back pain without sciatica, unspecified back pain laterality, unspecified chronicityLung granulomaAcute pain of both kneesLeft foot pain 7 Genoveva Rothman. [employer] [address] [facility], [place], [place], [address], [place]. tel:[phone] [facility], [address], [place], [place], [address] , [place] tel: [phone] [place] Low back pain without sciatica, unspecified back [...] malignant neoplasm of prostate 7 Genoveva Rothman. [address] [place] [address], [place] [address], [place], [place], [address], [place]. tel:[phone] Referring Provider: Stephan Tomas, [employer], [place], [address] . tel:[phone] [facility], [address], [place], [place], [address] , [place] tel: [phone] [place] Low back pain without sciatica, unspecified back pain laterality, unspecified chronicityPain in both handsADD (attention deficit disorder)Modera te episode of recurrent major depressive disorderAnxiety state, unspecifiedCont usion of left foot, initial encounter Genoveva Rothman. [address] [place] [address], [address], [place], [place], [address], [place]. tel:[phone] Referring Provider: Stephan Tomas, [address] [place] [address], [place], [address] . tel:[phone] [facility], [address], [place], [place], [address] , tel: [phone] [place] Essential hypertensionMod erate episode of recurrent major depressive disorderADD (attention deficit disorder)Anxiet y state, unspecifiedUnco mplicated asthma, unspecified asthma severityLow back pain without sciatica, unspecified back pain laterality, unspecified chronicityPre-d iabetesObesity (BMI 30-39.9)Pain in both hands Genoveva Rothman. [address], [facility], [place], [place], [address], . tel:[phone] Referring Provider: Stephan Tomas, [address] [place] [address], [place], [address] . tel:[phone] [facility], [address], [place], [place], [address] , [place] tel: [phone] [place] Low back pain without sciatica, unspecified back pain laterality, unspecified chronicityADD (attention deficit disorder)Modera te episode of recurrent major depressive disorderAnxiety state, unspecifiedUnco mplicated asthma, unspecified asthma severityPre-brenda betesErectile dysfunction, unspecified erectile dysfunction typeEssential hypertensionObe sity (BMI 30-39.9)Burn of skin Genoveva Rothman. [employer] [address], [facility], [place], [place], [address], [place]. tel:[phone] Referring Provider: Stephan Tomas, [address] [place] [address], [place], [address] . tel:[phone] [facility], [address], [place], [place], [address] , [place] tel:[phone] [place] No Information Genoveva Rothman. [address] [place] [address], [facility], [place], [place], [address], [place]. tel:[phone] [facility], [address], [place], [place], [address] , [place] tel:[phone] [place] Low back pain without sciatica, unspecified back [...] disorderAcute pain of right knee Genoveva Rothman. [address] [place] [address], [place] [address], [place], [place], [address], [place]. tel:[phone] Referring Provider: Stephan Tomas, [address] [place] [address], [place], [address] . tel:[phone] [facility], [address], [place], [place], [address] , [place] tel: [phone] [place] Low back pain without sciatica, unspecified back pain laterality, unspecified chronicityEssen tial hypertensionHyp erlipidemia, unspecified hyperlipidemia typeMorbid obesity due to excess caloriesAnxiety state, unspecifiedUnco mplicated asthma, unspecified asthma severityADD (attention deficit disorder)Erecti le dysfunction, unspecified erectile dysfunction typeHerpes zoster without complicationDys hidrotic eczemaPre-diabe tesAllergic rhinitis, unspecified allergic rhinitis typeRecurrent major depressive disorder, in full remissionChroni c sinusitis, unspecified location Genoveva Rothman. [address] [place] [address], [place], [place], [address], [place]. tel:[phone] Referring Provider: Stephan Tomas, [address] [place] [address], [place], [address] . tel:[phone] [facility], [address], [place], [place], [address] , tel: [phone] [place] Essential hypertensionHyp erlipidemia, unspecified hyperlipidemia typeMorbid obesity [...] in both knees, unspecified chronicity Genoveva Rothman. [address] [place] [address], [place], [place], [address], [place]. tel:[phone] Referring Provider: Stephan Tomas, [address] [place] [address], [place], [address] . tel:[phone] [facility] [address], [place], [place], [address] , [place] tel: [phone] [place] Acute recurrent sinusitis, unspecified locationEssenti al hypertensionHyp [...] caloriesHerpes zoster without complication 6 Genoveva Rothman. [address] [place] [address], [place], [place], [address], [place]. tel:[phone] Referring Provider: Stephan Tomas, [address] [place] [address], [place], [address] . tel:[phone] [facility], [address], [place], [place], [address] , [place] tel: [phone] [place] Benign essential HTNADD (attention deficit disorder)Mild intermittent asthma without complicationAnx iety state, unspecifiedMajo r depressive disorder, recurrent, in partial remissionBilate ral knee painGastroesoph ageal reflux disease, esophagitis presence not specifiedDyshid rotic eczemaHerpes zoster without complicationMor bid obesity due to excess calories Feb- 6 Genoveva Rothman. [address] [place] [address], [place] [address], [place], [place], [address], [place]. tel:[phone] Referring Provider: Stephan Tmoas, [address] [place] [address], [place], [address] . tel:[phone] [facility], [address], [place], [place], [address] , [place] tel: [phone] [place] Benign essential HTNADD (attention deficit disorder)Mild intermittent asthma without complicationAnx iety state, unspecifiedBila teral knee painGastroesoph ageal reflux disease, esophagitis presence not specifiedDyshid rotic eczemaHerpes zoster without complicationDep ression, major, recurrent, in remission 5 Genoveva Rothman. [address] [place] [address], [place], [place], [address], [place]. tel:[phone] Referring Provider: Stephan Tomas, [address] [place] [address], [place], [address] . tel:[phone] [facility] [address], [place], [place], [address] , [place] tel: [phone] [place] Essential hypertensionUns pecified asthma, uncomplicatedAn xiety disorder, unspecifiedMajo r depressive disorder, recurrent, in partial remissionMorbid (severe) obesity due to excess caloriesUnspeci fied chronic otitis externa, unspecified earVitamin D deficiency, unspecifiedCat scratch of left hand, initial encounter ^Scratched by cat, initial encounterAcute recurrent sinusitis, unspecified location 5 Genoveva Rothman. [address] [place] [address], [facility], [place], [place], [address], [place]. [phone] Referring Provider: Stephan Tomas, [address] [place] [address], [place], [address] . tel:[phone] [facility], [address], [place], [place], [address] , tel: [phone] [place] HypertensionHyp erlipidemiaAsth maAnxietyMajor depressive disorder, recurrent, in remissionMorbid obesityChronic otitis externaVitamin D deficiency 5 Genoveva Rothman. [address] [place] [address], [facility] [address], [place], [place], [address], [place]. [phone] Referring Provider: Stephan Tomas, [address] [place] [address], [place], [address] . tel:[phone] [facility], [address], [place], [place], [address] , tel: [phone] [place] HypertensionAst hmaDepressive disorder, not elsewhere classifiedAnxie tyMorbid obesityChronic otitis externaVitamin D deficiency 5 Genoveva Rothman. [address] [place] [address], [facility] [address], [place], [place], [address], [place]. tel:[phone] Referring Provider: Stephan Tomas, [address] [place] [address], [place], [address] . tel:[phone] [facility], [address], [place], [place], [address] , tel:[phone] [place] Acute sinusitisHyperl ipidemiaHyperte nsion, benign 5 Genoveva Rothman. [address] [place] [address], [facility] [address], [place], [place], [address], [place]. tel:[phone] Referring Provider: Stephan Tomas, [address] [place] [address], [place], [address] . tel:[phone] [facility], [address], [place], [place], [address] , tel:[phone] [place] HypertensionAtt ention deficit disorder of childhood without meAsthmaKnee pain, bilateralPosthe rpetic neuralgiaMorbid obesityHistory of dental abscess 5 Genoveva Rothman. [address] [place] [address], [place] [address], [place], [place], [address], [place]. tel:[phone] Referring Provider: Stephan Tomas, [address] [place] [address], [place], [address] . tel:[phone] [facility], [address], [place], [place], [address] , [place] tel:[phone] [place] HypertensionAst hmaPostherpetic neuralgiaMorbid obesityKnee pain, bilateral Jun- 5 Genoveva Rothman. [address] [place] [address], [place] [address], [place], [place], [address], [place]. tel:[phone] Referring Provider: Stephan Tomas, [address] [place] [address], [place], [address] . tel:[phone] [facility] [address], [place], [place], [address] , [place] tel:[phone] [place] Postherpetic neuralgiaEczema ADD (attention deficit disorder) without hyperactivityMa raman depressive disorder, recurrent, in remissionAnxiet yAsthmaChronic rhinitisHyperli pidemiaHyperten susan, benign 5 Genoveva Rothman. [address] [place] [address], [place] [address], [place], [place], [address], [place]. tel:[phone] Referring Provider: Stephan Tomas, [address] [place] [address], [place], [address] . tel:[phone] [facility], [address], [place], [place], [address] , tel: [phone] [place] AnxietyADD (attention deficit disorder) without hyperactivityRa shKnee pain, bilateralMorbid obesityEczema 5 Genoveva Rothman. [address] [place] [address], [address], [place], [place], [address], . tel:[phone] Referring Provider: Stephan Tomas, [address] [place] [address] [address], [place], [address] . tel:[phone] [facility], [address], [place], [place], [address] , tel: [phone] [place] Knee pain, bilateralRight foot painAnxietyEcze ma 4 Genoveva Rothman. [address] [place] [address], [place] [address], [place], [place], [address], . tel:[phone] Referring Provider: Stephan Tomas, [address] [place] [address], [place], [address] . tel:[phone] [facility], [address], [place], [place], [address] , tel: [phone] [place] HypertensionHyp erlipidemiaMajo r depressive disorder, recurrent episode, moderateAnxiety Knee painGERD (gastroesophage al reflux disease)Mental status alteration 4 Genoveva Rothman. [address] [place] [address], [place] [address], [place], [place], [address], [place]. tel:[phone] Referring Provider: Stephan Tomas, [address] [place] [address], [place], [address] . tel:[phone] [facility], [address], [place], [place], [address] , tel: [phone] [place] Screening for depressionAtten tion deficit disorder of childhood without meObesityHypert ensionDyshidrot ic eczemaHyperlipi demiaChronic cardiopulmonary diseaseMajor depressive disorder, recurrent episode, moderateAnxiety 4 Genoveva Rothman. [address] [place] [address], [facility], [place], [place], [address], [place]. tel:[phone] Referring Provider: Stephan Tomas, [address] [place] [address], [place], [address] . tel:[phone] [facility], [address], [place], [place], [address] , tel:[phone] [place] AsthmaDiastolic dysfunctionAnxi etyHypertension , benignHyperlipi demiaMorbid obesityChronic otitis externaEczemaDe pression, major, recurrent, in partial remissionFood allergy 4 Genoveva Rothman. [address] [place] [address], [place] [address], [place], [place], [address], [place]. tel:[phone] Referring Provider: Stephan Tomas, [address] [place] [address], [place], [address] . tel:[phone] [facility], [address], [place], [place], [address] , [place] tel:[phone] [place] AsthmaAnxietyHy perlipidemiaBen ign essential hypertensionObe sityChronic otitis externa 4 Genoveva Rothman. [address] [place] [address], [place] [address], [place], [place], [address], [place]. tel:[phone] Referring Provider: Stephan Tomas, [address] [place] [address], [place], [address] . tel:[phone] [facility], [address], [place], [place], [address] , [place] tel:[phone] [place] Shortness of breathSwelling of right lower extremity 0 4 Basbibbehilda Costa. [address] [place] [address], [place], [place], [address], [place]. tel:[phone] Referring Provider: Stephan Tomas, [address] [place] [address], [place], [address] . tel:[phone] [facility], [address], [place], [place], [address] , tel:[phone] [place] Allergic drug rash due to anti-infective agentOtitis mediaEczema 4 Genoveva Rothman. [address] [place] [address], [place] [address], [place], [place], [address], [place]. tel:[phone] Referring Provider: Stephan Tomas, [address] [place] [address], [place], [address] . tel:[phone] [facility], [address], [place], [place], [address] , tel: [phone] [place] Attention deficit disorder of childhood without meAnxiety state, unspecifiedAsth ma (asthmatic bronchitis)Rash of handsHypertensi onHealthcare maintenanceObes ityPrediabetes 4 Genoveva Rothman. [address] [place] [address], [place] [address], [place], [place], [address], . tel:[phone] Referring Provider: Stephan Tomas, [address] [place] [address], [place], [address] . tel:[phone] [facility], [address], [place], [place], [address] , tel: [phone] [place] Attention deficit disorder without mention of hyperactivityAs thmaHypertensio n, BenignObesityAn xiety 3 Genoveva Rothman. [address] [place] [address], [place] [address], [place], [place], [address], . tel:[phone] Referring Provider: Stephan Tomas, [address] [place] [address], [place], [address] . tel:[phone] [facility], [address], [place], [place], [address] , tel:[phone] [facility] AsthmaContact dermatitis and other eczema due to other specified agentsChronic rhinitis 3 Collin Joe. [address], [id number], . tel:[phone] Referring Provider: Stephan Tomas, [address] [place] [address], [place], [address] . tel:[phone] [employer] [facility] [place], [address], [place], [place], [address] , tel: [phone] [facility] Attention deficit disorder without mention of hyperactivityIm potence of organic originASTHMA,UN SPECIFIED TYPE, UNSPECIFIEDObes ity, unspecified Nov-3 3 Genoveva Rothman. [address] [place] [address], [place] [address], [place], [place], [id number], [place]. tel:[phone] Referring Provider: Stephan Tomas, [address] [place] [address], [place], [address] . tel:[phone] [employer], [address], [place], [place], [address] , tel: [phone] [facility] ASTHMA, UNSPECIFIED TYPE, WITH (ACUTE) EXACERBATION 3 Radha Sarabia. [address] [facility] [address], [place], [place], [id number]. [phone] Referring Provider: Heath Polanco, [address] [place] [address], [address] . tel:[phone] [facility] [place], [address], [place], [place], [address] , tel: [phone] [facility] Other Dyspnea/Respira tory AbnormalitiesCh ronic rhinitisEsophag eal reflux 3 Collin Joe. [address] [place] [address], [address], [id number], [place]. tel:[phone] Referring Provider: Stephan Tomas, [address] [place] [address], [place], [address] . tel:[phone] [facility] [place], [address], [place], [place], [id number] , tel: [phone] [facility] ASTHMA,UNSPECIF IED TYPE, UNSPECIFIEDChes t painAttention deficit disorder without mention of hyperactivityAl lergic rhinitis, cause unspecifiedObes ity, unspecified 3 Genoveva Rothman. [address] [place] [address], [address], [place], [place], [address], . tel:[phone] Referring Provider: Stephan Tomas, [address] [place] [address] [address], [place], [address] . tel:[phone] [facility], [address], [place], [place], [id number] , [place] tel: [phone] [place] Routine general medical examination at a health care facility 3 Genoveva Rothman. [address] [place] [address], [address], [place], [place], [id number], [place]. tel:[phone] [facility], [address], [place], [place], [address] , [place] tel: [phone] [facility] Attention deficit disorder without mention of hyperactivityAn xiety state, unspecifiedDepr essive disorder, not elsewhere classifiedAller gic rhinitis, cause unspecifiedObes ity, unspecified 3 Genoveva Rothman. [address] [place] [address], [address], [place], [place], [address], [place]. tel:[phone] Referring Provider: Stephan Tomas, [address] [place] [address], [place], [address] . tel:[phone] [facility] [place], [address], [place], [place], [address] , [place] tel: [phone] [facility] Acute upper respiratory infections of unspecified siteAttention deficit disorder without mention of hyperactivityOb esity, unspecifiedDepr essive disorder, not elsewhere classifiedNEED FOR PROPHYLACTIC VACCINATION AND INOCULATION, OTHER VIRAL DISEASES 3 Genoveva Rothman. [address] [place] [address], [address], [place], [place], [address], [place]. tel:[phone] Referring Provider: Stephan Tomas, [address] [place] [address], [place], [address] . tel:[phone] [facility] [place], [address], [place], [place], [address] , [place] tel: [phone] [facility] Back painAttention deficit disorder of childhood without meAnxiety state, unspecifiedImmu nization dueObesityGERD (gastroesophage al reflux disease)NEED FOR PROPHYLACTIC VACCINATION AND INOCULATION, INFLUENZANeed for prophylactic vaccination and inoculation against streptococcus pneumoniae [pneumococcus]I mpotence of organic origin 2 Genoveva Rothman. [address] [place] [address], [place] [address], [place], [place], [address], [place]. tel:[phone] Referring Provider: Stephan Tomas, [address] [place] [address], [place], [address] . tel:[phone] [facility] [place], [address], [place], [place], [address] , [place] tel: [phone] [facility] Obesity, unspecifiedElev ated blood pressure reading without diagnosis of hypertensionAnx iety state, unspecifiedAtte ntion deficit disorder without mention of hyperactivityOb esity, unspecified 2 Genoveva Rothman. [address] [place] [address], [place] [address], [place], [place], [address], [place]. tel:[phone] Referring Provider: Stephan Tomas, [address] [place] [address], [place], [address] . tel:[phone] [employer] [facility] [place], [address], [place], [place], [address] , [place] tel: [phone] [facility] Screening for venereal diseasePharyngi tisThrush 2 Genoveva Rothman. [address] [place] [address], [place] [address], [place], [place], [address], [place]. tel:[phone] Referring Provider: Stephan Tomas, [address] [place] [address], [place], [address] . tel:[phone] [facility] [place], [address], [place], [place], [address] , [place] tel: [phone] [facility] MaintenanceAtte ntion deficit disorder of childhood without meAnxiety state, unspecifiedelev ated bp s dx of htnAllergic rhinitis, cause unspecifiedEsop hageal refluxobesitySc reening for diabetes mellitusRoutine general medical examination at a health care facility 2 Genoveva Rothman. [address], [address], [place], [place], [address], . tel:[phone] Referring Provider: Stephan Tomas, [address] [place] [address] [address], [place], [address] . tel:[phone] [facility], [address], [place], [place], [address] , tel: [phone] [facility] 2 Ervin Burton. [address], [address], [place], [place], [address], . tel:[phone] [facility], [address], [place], [place], [address] , tel: [phone] [place] Allergic rhinitis, cause unspecifiedAnxi ety state, unspecifiedASTH MA,UNSPECIFIED TYPE, UNSPECIFIEDAtte ntion deficit disorder of childhood without mention of hyperactivity 1 Genoveva Rothman. [address] [place] [address], [address], [place], [place], [address], . tel:[phone] Referring Provider: Stephan Tomas, [address] [place] [address], [place], [address] . tel:[phone] Family History Family Member Type Diagnosis Age [...] Source: New Immunization Record Zoster administered Note: [facility] [id number] ; Source: New Immunization Record Pneumo (2 yrs or older) (PPV23) administe red Note: [facility] [id number] ; Source: New Immunization Record Flu (split) (3 yrs or older) administered Note: [facility] [id number] ; Source: New Immunization Record Tdap administered Source: Other P rovider Payers Payer name Insurance type Covered republican ID Ellen infante(s) MEDICARE MB [id number] [facility] MDCR SUPPLEMENT ONLY CI [id number] MEDICARE MB [id number] [facility] MDCR SUPPLEMENT ONLY CI [id number] MEDICARE MB [id number] [employer] MDCR SUPPLEMENT ONLY CI [id number] Social History Type Description Quantity Date Captured [...] Order XR foot left, 2 views Left (55702), Sent on: Sent History Of Present Illness [...] he plans to see the ENT at [facility], Dr. Hussein. Chronic condition RA/ RUEL Knee [...] (BMI) 37.0-37.9, adult Check PSA. Related to [facility] for prostate cancer screening Last A1c was [...] Bassem omid while on amoxicillin per Dr. Tineo. Continue treatment with hydroxychloroquine [...] left knee w /contrast ordered today at [facility]. Will refer to lopez Hernandez as [...]
--- OUTSIDE RECORDS SUMMARY | 2024-05-11 13:02 | XMS_ITS | Clinical Summary ---
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
--- OUTSIDE RECORDS SUMMARY | 2024-05-11 13:02 | XMS_ITS | Patient Health Summary ---
Author Organization [facility] Address [address] [place] [address] Care Team Providers Care Library Clerk Talking Books Name Role Phone Michael Hussein MD Primary Care Provider [phone] Note from [facility],non-owned Affiliates and Associated Physician Practices is amultiple site organization consisting of ambulatory clinics and hospital sitesin [place], [place], [place] and [place]. This disclosure is being madepursuant to the Care Everywhere program and may not contain all information available regarding this patient. 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 (Orencia) [...] 61 12/01/2023 8:45 AM CDT Temperature 36.7 C (98 F) 12/02/2022 8:46 AM CDT Respiratory Rate 16 12/02/2022 8:46 AM CDT Oxygen Saturation 93% 12/01/2023 8:45 AM CDT Inhaled Oxygen Concentration - - Weight 97.5 kg (215 lb) 12/01/2023 8:45 AM CDT Height 177.8 cm (5' 10 ) 12/01/2023 8:45 AM CDT Body Mass Index 30.85 12/01/2023 8:45 AM CDT Medical Devices Implanted Type Area Industrial Relations Specialist Device Identifier Shelf Expiration Date Model / Serial / Lot Graft Bone Alfs + Dbm 5ml Ptty Implanted:Qty: 1 on 12/20/2017 by Easton Paula DO at [facility] N/A: Spine Lumbar [employer] 04/27/2019 [id number] / / [id number] [place] Set Screw Implanted:Qty: 4 on 12/20/2017 by Easton Paula DO at [facility] N/A: Spine Lumbar [employer] [id number] / / 6.5x50mm Screw Implanted:Qty: 2 on 12/20/2017 by Easton Paula DO at [facility] N/A: Spine Lumbar [employer] [id number] / / 6.5x55mm Screw Implanted:Qty: 1 on 12/20/2017 by Easton Paula DO at [facility] N/A: Spine Lumbar [employer] [id number] / / 6.5x60mm Screw Implanted:Qty: 1 on 12/20/2017 by Easton Paula DO at [facility] N/A: Spine Lumbar [employer] [id number] / / 35mm Flavio Implanted:Qty: 1 on 12/20/2017 by Easton Paula DO at [facility] N/A: Spine Lumbar [employer] [id number] / / 40mm Flavio Implanted:Qty: 1 on 12/20/2017 by Easton Paula DO at [facility] N/A: Spine Lumbar [employer] [id number] / / Procedures * LAB MISC TEST(Performed [...] for Sinusitis, unspecified chronicity, unspecified location * IN NASAL ENDOSCOPY,DX(Performed 04/04/2019) Performed for Sinusitis, unspecified [...] VECTRA DA DISEASE ACTIVITY (06/04/2022 11:36 AM LABOUR MARKET ECONOMIST) Vectra Score 13 [facility] INSURANCE BILL Comment: [...] Low: 1 to 29 Test Description [facility] INSURANCE BILL Comment: VECTRA SCORE DESCRIPTION Vectra [...] developed and its performance characteristics determined by [facility]. It has not been cleared or approved by the Food and Drug Administration. (C)2020 [employer](R) [employer]. All Rights Reserved. This document contains private and confidential health information protected by state and federal law. If you have received this document in error please call [phone]. V.1.12-16 BEBE Result 1.8 ug/mL [facility] INSURANCE [...] the generation of the Vectra score only. These results should not be used interchangeably with results generated by different methodologies. Footnote/History [facility] INSURANCE BILL Comment: RA Range: These 95% reference ranges were established from 325,781 patient samples tested at [facility]. RA Percentile: Subject's biomarker level [...] BLOOD SPECIMEN / Unknown 06/04/2022 11:36 AM LABOUR MARKET ECONOMIST 06/04/2022 Narrative Resulting Agency Comment Lab Testing performed at: [facility] [address] [place] [phone] Tuan Poon DO LAB - SEROLOGY ORDER JACQUIE Performing Organization Address City/[facility] Co de Phone Number [facility] INSURANCE BILL [address] [place] [address] * SED RATE AUTO (ESR) (06/04/2022 11:36 AM LABOUR MARKET ECONOMIST) Only the most recent of5 resultswithin the time period is included. Erythrocyte Sedimentation Rate Westergren 2 0 - 30 mm/hr [facility] INSURANCE BILL Comment:FASTING Blood BLOOD SPECIMEN / Unknown 06/04/2022 11:36 AM LABOUR MARKET ECONOMIST 06/04/2022 Narrative Resulting Agency Comment Lab Testing performed at: [employer] [facility] [address] [phone] Tuan Poon DO LAB - HEMATOLOGY ORD ERABLES Performing Organization Address [facility] de Phone Number [facility] BILL [address] [place] [address] * LAB (05/26/2022) Only the most recent of8 resultswithin the time period is included. Scanned Document SCANNING ONLY * BETA-2 GLYCOPROTEIN 1 ANTIBODY IGG (05/18/2021 2:57 PM LABOUR MARKET ECONOMIST) Beta-2 Glycoprotein I Antibody IgG <2.0 U/mL [facility] Comment: Value Interpretation ----- < 20.0 Antibody not detected > or = 20.0 Antibody detected The antiphospholipid antibody syndrome (APS) is a clinical-pathologic correlation that includes a clinical event (e.g. arterial or venous thrombosis, morbidity) and persistent positive antiphospholipid antibodies (IgM or IgG GOSIA >40 MPL/GPL-U/mL, IgM or IgG anti-b2GPI antibodies or a lupus anticoagulant). International consensus guidelines for APS suggest waiting at least 12 weeks before retesting to confirm antibody persistence. The Systemic Lupus International Collaborating Clinics immunological classification criteria for systemic lupus erythematosus (SLE) include testing for isotype IgA, which has yet to be incorporated into APS criteria. Low level antiphospholipid antibodies may sometimes be detected in the setting of infection, drug therapy or aging. For additional information, please refer to http://education.Warm Health/faq/WYP064 (This link is being provided for informational/ educational purposes only.) Test Performed at: [facility] [address] [address] MARY DRAPER MD 05/18/2021 2:57 PM LABOUR MARKET ECONOMIST 05/18/2021 3:01 PM LABOUR MARKET ECONOMIST Tuan Poon DO LAB - SEROLOGY ORDER JACQUIE Performing Organization Address City/State/[facility] Co de Phone Number [facility] [address] [place] [address] * BETA-2 GLYCOPROTEIN 1 ANTIBODY IGM (05/18/2021 2:57 PM LABOUR MARKET ECONOMIST) Beta-2 Glycoprotein I Antibody IgM <2.0 U/mL [facility] Comment: Value Interpretation ----- < 20.0 Antibody not detected > or = 20.0 Antibody detected The antiphospholipid antibody syndrome (APS) is a clinical-pathologic correlation that includes a clinical event (e.g. arterial or venous thrombosis, morbidity) and persistent positive antiphospholipid antibodies (IgM or IgG GOSIA >40 MPL/GPL-U/mL, IgM or IgG anti-b2GPI antibodies or a lupus anticoagulant). International consensus guidelines for APS suggest waiting at least 12 weeks before retesting to confirm antibody persistence. The Systemic Lupus International Collaborating [facility] immunological classification criteria for systemic lupus erythematosus (SLE) include testing for isotype IgA, which has yet to be incorporated into APS criteria. Low level antiphospholipid antibodies may sometimes be detected in the setting of infection, drug therapy or aging. For additional information, please refer to http://Hands.Warm Health/faq/BBV245 (This link is being provided for informational/ educational purposes only.) Test Performed at: [facility] [address] [address] MARY DRAPER MD 05/18/2021 2:57 PM LABOUR MARKET ECONOMIST 05/18/2021 3:01 PM LABOUR MARKET ECONOMIST Tuan Poon DO LAB - SEROLOGY ORDER JACQUIE Performing Organization Address City/State/[facility] Co de Phone Number [facility] [address] [place] [address] * CARDIOLIPIN ANTIBODY IGM (05/18/2021 2:57 PM LABOUR MARKET ECONOMIST) [facility] Cardiolipin Antibody IgM <2.0 MPL-U/mL [facility] Comment: Value Interpretation ----- < 20.0 Antibody not detected > or = 20.0 Antibody detected The antiphospholipid antibody syndrome (APS) is a clinical-pathologic correlation that includes a clinical event (e.g. arterial or venous thrombosis, morbidity) and persistent positive antiphospholipid antibodies (IgM or IgG GOSIA >40 MPL/GPL-U/mL, IgM or IgG anti-b2GPI antibodies or a lupus anticoagulant). International consensus guidelines for APS suggest waiting at least 12 weeks before retesting to confirm antibody persistence. The Systemic Lupus International Collaborating Clinics immunological classification criteria for systemic lupus erythematosus (SLE) include testing for isotype IgA, which has yet to be incorporated into APS criteria. Low level antiphospholipid antibodies may sometimes be detected in the setting of infection, drug therapy or aging. For additional information, please refer to http://Hands.Warm Health/faq/LTH645 (This link is being provided for informational/ educational purposes only.) Test Performed at: [facility] [place] [address] [place] [address] MARY DRAPER MD 05/18/2021 2:57 PM LABOUR MARKET ECONOMIST 05/18/2021 3:01 PM LABOUR MARKET ECONOMIST Tuanrandall Poon LAB - SEROLOGY ORDER JACQUIE Performing Organization Address [facility] de Phone Number [facility] [address] [place] [address] * CARDIOLIPIN ANTIBODY IGG (05/18/2021 2:57 PM LABOUR MARKET ECONOMIST) Pathologist [facility] Cardiolipin Antibody IgG <2.0 GPL-U/mL [facility] Comment: Value Interpretation ----- < 20.0 Antibody not detected > or = 20.0 Antibody detected The antiphospholipid antibody syndrome (APS) is a clinical-pathologic correlation that includes a clinical event (e.g. arterial or venous thrombosis, morbidity) and persistent positive antiphospholipid antibodies (IgM or IgG GOSIA >40 MPL/GPL-U/mL, IgM or IgG anti-b2GPI antibodies or a lupus anticoagulant). International consensus guidelines for APS suggest waiting at least 12 weeks before retesting to confirm antibody persistence. The Systemic Lupus International Collaborating Clinics immunological classification criteria for systemic lupus erythematosus (SLE) include testing for isotype IgA, which has yet to be incorporated into APS criteria. Low level antiphospholipid antibodies may sometimes be detected in the setting of infection, drug therapy or aging. For additional information, please refer to http://education.Warm Health/faq/VPT193 (This link is being provided for informational/ educational purposes only.) Test Performed at: [facility] [address] [address] [place] [address] MARY DRAPER MD 05/18/2021 2:57 PM LABOUR MARKET ECONOMIST 05/18/2021 3:01 PM LABOUR MARKET ECONOMIST Tuan Cleve LAB - SEROLOGY ORDER JACQUIE Performing Organization Address [facility]/[place] [address] * LUPUS ANTICOAGULANT PANEL W RFLX (05/18/2021 2:57 PM LABOUR MARKET ECONOMIST) Lupus Anticoagulant NOT DETECTED [facility] Comment: A Lupus Anticoagulant is not detected. For more information on this test, go to: http://Hands.Warm Health/faq/FJL95f7 (This link is being provided for informational/ educational purposes only.) This interpretation is based on the following test results: PTT LA Screen 36 < OR = 40 sec [facility] dRVVT Screen 40 < OR = 45 sec [facility] Comment: Test Performed at: [facility] [address] [address] MARY DRAPER MD 05/18/2021 2:57 PM LABOUR MARKET ECONOMIST 05/18/2021 3:01 PM LABOUR MARKET ECONOMIST Tuan Poon DO LAB - HEMATOLOGY ORD ERABLES Performing Organization Address [facility] [place] [address] * (ABNORMAL) TSH (05/18/2021 2:57 PM LABOUR MARKET ECONOMIST) Only the most recent of2 resultswithin the time period is included. Pathologist [facility] TSH 4.95(H) 0.40 - 4.50 mIU/L [facility] Comment: Test Performed at: [facility] [place] [address] [place] [address] SHEILA PÉREZ DO,MPH 05/18/2021 2:57 PM LABOUR MARKET ECONOMIST 05/18/2021 3:01 PM LABOUR MARKET ECONOMIST Tuan Poon DO LAB - CHEMISTRY ORDE RABLES Performing Organization Address [facility] [place] [address] * T4 FREE (05/18/2021 2:57 PM LABOUR MARKET ECONOMIST) Pathologist [facility] T4 Free 1.0 0.8 - 1.8 ng/dL [facility] Comment: Test Performed at: [facility] [employer] [facility] [place] [address] SHEILA PÉREZ DO,MPH 05/18/2021 2:57 PM LABOUR MARKET ECONOMIST 05/18/2021 3:01 PM LABOUR MARKET ECONOMIST Tuan Poon DO LAB - CHEMISTRY DORIAN GONZÁLES Performing Organization Address [facility] de Phone Number [facility] [address] [place] [address] * C-REACTIVE PROTEIN (11/05/2020 3:48 PM CDT) Only the most recent of2 resultswithin the time period is included. [facility] C-Reactive Protein 0.3 <8.0 mg/L [facility] Comment: Test Performed at: [facility] [place] [address] SHEILA PÉREZ DO,MPH 11/05/2020 3:48 PM CDT 11/05/2020 3:49 PM CDT Narendra Spencer MD LAB - CHEMISTRY OR DERABLES Performing Organization Address [facility] de Phone Number [facility] [id number] [place] [address] * (ABNORMAL) CYCLIC CITRULLINATED PEPTIDE(CCP) AB IGG (11/05/2020 3:48 PM CDT) [facility] Cyclic Citrullinated Peptide Antibody IgG 45(H) UNITS [facility] Comment: Reference Range Negative: <20 Weak Positive: 20-39 Moderate Positive: 40-59 Strong Positive: >59 Test Performed at: [facility] [place] [address] SHEILA PÉREZ DO,MPH 11/05/2020 3:48 PM CDT 11/05/2020 3:49 PM CDT Narendra Spencer MD LAB - CHEMISTRY OR DERABLES [facility] [address] [place] [address] * (ABNORMAL) CBC WITH DIFFERENTIAL (11/05/2020 3:48 PM CDT) Only the most recent of5 resultswithin the time period is included. [facility] White Blood Cell Count 6.5 3.8 - [...] 0.3 % [facility] Comment: Test Performed at: [facility] [address] [place] [address] SHEILA PÉREZ DO,MPH 11/05/2020 3:48 PM CDT 11/05/2020 3:49 PM CDT Narendra Spencer MD LAB - HEMATOLOGY O RDERABLES [facility] [address] [place] [address] * (ABNORMAL) COMPREHENSIVE METABOLIC PANEL (11/05/2020 3:48 PM CDT) Only the most recent of5 resultswithin the time period is included. [facility] Glucose 99 65 - 99 mg/dL [facility] Comment: Fasting reference interval BUN 32(H) 7 - 25 mg/dL [facility] Creatinine 1.36(H) 0.70 - 1.25 mg/dL [facility] Comment: For patients >49 years of age, the reference limit for Creatinine is approximately 13% higher for people identified as -Tuvaluan. eGFR by MDRD 53(L) > OR = [...] 46 U/L [facility] Comment: Test Performed at: [email or web address] [address] SHEILA PÉREZ DO,MPH 11/05/2020 3:48 PM CDT 11/05/2020 3:49 PM CDT Narendra Spencer MD LAB - CHEMISTRY OR DERABLES [facility] [address] [place] [address] * CT ABDOMEN PELVIS OUTSIDE (06/24/2020) Anatomical Region Laterality Modality Other Narendra Spencer MD IMAGING * MRI TOTAL SPINE OUTSIDE (06/07/2020) Anatomical Region Laterality Modality Other Narendra Spencer MD IMAGING * MRI CERVICAL SPINE OUTSIDE (03/19/2020) Anatomical Region Laterality Modality Other Narendra Spencer MD IMAGING * QUANTIFERON-TB GOLD PLUS 1-TUBE (02/06/2020 3:20 PM LABOUR MARKET ECONOMIST) Pathologist [facility] QuantiFERON TB Gold Plus NEGATIVE NEGATIVE [facility] [...] T-lymphocytes. For additional information, please refer to https://Hands.Warm Health/faq/MPC740 (This link is being provided for informational/ educational purposes only.) Test Performed at: [facility] [place] [address] [place] [address] SHEILA PÉREZ DO,MPH 02/06/2020 3:20 PM LABOUR MARKET ECONOMIST 02/06/2020 3:21 PM LABOUR MARKET ECONOMIST Narendra Spencer MD LAB - CHEMISTRY OR DERABLES [facility] [address] [place] [address] * HEPATITIS SCREEN ACUTE (02/06/2020 3:20 PM LABOUR MARKET ECONOMIST) Pathologist [facility] Hepatitis A Virus Antibody IgM NON-REACT LINDA NON-REACT LINDA [facility] Comment: For additional information, please refer to http://Hands.Warm Health/faq/OJL867 (This link is being provided for informational/ [...] a test for HCV RNA (test code 80151) is suggested. For additional information please refer to http://education.Warm Health/faq/BWQ18k4 (This link is being provided for informational/ educational purposes only.) Test Performed at: [employer] [address] [place] [address] SHEILA PÉREZ DO,MPH 02/06/2020 3:20 PM LABOUR MARKET ECONOMIST 02/06/2020 3:21 PM LABOUR MARKET ECONOMIST Narendra Spencer MD LAB - CHEMISTRY OR DERABLES Performing Organization Address City/State/[facility] Co de Phone Number [facility] [address] [place] [address] * CT SINUS WO CONTRAST (04/27/2019 9:45 AM LABOUR MARKET ECONOMIST) Anatomical Region Laterality Modality Head Computed Tomogra phy 04/27/2019 9:49 AM LABOUR MARKET ECONOMIST Impressions 04/27/2019 12:25 PM LABOUR MARKET ECONOMIST IMPRESSION: No CT evidence of sinusitis. Dictated by Cristobal Elliott M.D. (radiology physician). I, Dr. JAYDA PAN have personally reviewed and interpreted this examination/study. This report was electronically signed by JAYDA PAN on 04/27/2019 12:25 PM . Narrative 04/27/2019 12:25 PM LABOUR MARKET ECONOMIST EXAMINATION: CT sinus without contrast HISTORY: J32.9: [...] of sinusitis. Dictated by Cristobal Elliott M.D. (radiology physician). I, Dr. JAYDA PAN have personally reviewed and interpreted this examination/study. This report was electronically signed by JAYDA PAN on 04/27/2019 12:25 PM . Estella Yoo MD CT ORDERABLES * IN NASAL ENDOSCOPY,DX (04/04/2019 3:16 PM LABOUR MARKET ECONOMIST) Narrative Jordan Rincon MD - 04/04/2019 3:16 PM LABOUR MARKET ECONOMIST Jordan Rincon MD 04/04/2019 3:16 PM Procedure: Rigid Nasal Endoscopy Anesthesia: Bilateral Nasal Cavities sprayed with Lidocaine and Neosynephrine Detail: Rigid nasal endoscopy performed bilaterally. Septum was relatively midline. We visualized on both sides and the middle meatus is normal with no polyps and no edema. Also looked in the nasopharynx which also was normal. Examined extensively. Jordan Rincon MD PROCEDURE/MINOR SHANTANU GICAL ORDERABLES * HEPATITIS B PANEL (07/26/2018 11:46 AM CDT) HBsAb Non Reactive Non Reactive 07/26/2018 2:09 PM CDT [facility] HBsAg Non Reactive Non Reactive 07/26/2018 2:09 PM CDT [facility] HBc Antibody IgM Non Reactive Non Reactive 07/26/2018 2:09 PM CDT [facility] Blood BLOOD SPECIMEN / Unknown Venipuncture / Unknown 07/26/2018 11:46 AM CDT 07/26/2018 11:57 AM CDT Narendra Spencer MD LAB - CHEMISTRY OR DERABLES [facility] [address] [place] [address] * XR KNEE LEFT 4VW OR MORE [...] HEPATITIS C ANTIBODY (07/10/2018 10:15 AM CDT) Hepatitis C Antibody Non Reactive Non Reactive [facility] INSURANCE BILL Comment:FASTING Blood BLOOD SPECIMEN / Unknown 07/10/2018 10:15 AM CDT 07/10/2018 Narrative Resulting Agency Comment [facility] [address] [facility] [id number] Narendra Spencer MD LAB - CHEMISTRY OR DERABLES Performing Organization Address City/[facility] Co de Phone Number [facility] INSURANCE BILL [address] [place] [address] * QUANTIFERON TB-GOLD (07/10/2018 10:14 AM CDT) Pathologist [facility] QuantiFERON Incubation Incubation performed. [facility] INSURANCE BILL [...] Resulting Agency Comment Lab Testing performed at: [facility] [address] [facility] [id number] Narendra Spencer MD LAB - CHEMISTRY OR DERABLES Performing Organization Address City/[facility] Co de Phone Number [facility] INSURANCE BILL [address] [place] [address] * (ABNORMAL) CYCLIC CITRUL PEPTIDE ANTIBODY IGG/IGA (CCP) (04/10/2018 11:21 AM LABOUR MARKET ECONOMIST) Pathologist [facility] CCP Antibodies IgG/IgA 58(H) 0 - 19 units [facility] INSURANCE BILL Comment: Negative <20 Weak positive 20 - 39 Moderate positive 40 - 59 Strong positive >59 FASTING Blood BLOOD SPECIMEN / Unknown 04/10/2018 11:21 AM LABOUR MARKET ECONOMIST 04/10/2018 Narrative Resulting Agency Comment [address] [place] [id number] Narendra Spencer MD LAB - SEROLOGY ORD ERABLES [facility] INSURANCE BILL [address] [place] [address] * EUGENIE PANEL COMPREHENSIVE (04/10/2018 11:21 AM LABOUR MARKET ECONOMIST) Anti-dsDNA Quantitative <1 0 - 9 IU/mL [facility] INSURANCE BILL Comment: Negative <5 Equivocal 5 - 9 Positive >9 UPHOLSTERY REPAIRER Antibody 0.3 0.0 - 0.9 AI [facility] [...] See Below [facility] INSURANCE BILL Comment: Autoantibody Disease Association Condition Frequency --------- Antinuclear Antibody, SLE, mixed connective Direct (EUGENIE-D) tissue diseases --------- dsDNA SLE 40 - 60% --------- Chromatin Drug induced SLE 90% SLE 48 - 97% --------- SSA (Ro) SLE 25 - 35% Sjogren's Syndrome 40 - 70% Lupus 100% --------- SSB (La) SLE 10% Sjogren's Syndrome 30% --------- Sm (anti-Owens) SLE 15 - 30% --------- UPHOLSTERY REPAIRER Mixed Connective Tissue Disease 95% (U1 nRNP, SLE 30 - 50% anti-ribonucleoprotein) Polymyositis and/or Dermatomyositis 20% --------- Scl-70 (antiDNA Scleroderma (diffuse) 20 - 35% topoisomerase) Crest 13% --------- Ariadne-1 Polymyositis and/or Dermatomyositis 20 - 40% --------- Centromere B Scleroderma - Crest variant 80% FASTING Blood BLOOD SPECIMEN / Unknown 04/10/2018 11:21 AM LABOUR MARKET ECONOMIST 04/10/2018 Narrative Resulting Agency Comment [facility] [address] [facility] [phone] Narendra Spencer MD LAB - SEROLOGY ORD ERABLES Performing Organization Address City/[facility]/ZIP Co de Phone Number [facility] INSURANCE BILL [address] [place] [address] * RHEUMATOID FACTOR BLOOD QUANTITATIVE (04/10/2018 11:21 AM LABOUR MARKET ECONOMIST) Rheumatoid Factor <10 <15 IU/mL [facility] INSURANCE BILL Comment:FASTING Blood BLOOD SPECIMEN / Unknown 04/10/2018 11:21 AM LABOUR MARKET ECONOMIST 04/10/2018 Narrative Resulting Agency Comment [address] [phone] Narendra Spencer MD LAB - CHEMISTRY OR DERABLES Performing Organization Address [facility] Co de Phone Number [facility] INSURANCE BILL [address] [place] [address] * EUGENIE BLOOD SCREEN W/REFLEX TITER (04/10/2018 11:21 AM LABOUR MARKET ECONOMIST) EUGENIE Negative Negative [facility] INSURANCE BILL Comment:FASTING Blood BLOOD SPECIMEN / Unknown 04/10/2018 11:21 AM LABOUR MARKET ECONOMIST 04/10/2018 Narrative Resulting Agency Comment [address] [phone] Narendra Spencer MD LAB - CHEMISTRY OR DERABLES Performing Organization Address City/[facility]/ZIP Co de Phone Number [facility] INSURANCE BILL [address] [place] [address] * HLA TYPING B27 (04/10/2018 11:21 AM LABOUR MARKET ECONOMIST) HLA-B27 Negative [facility] Comment: HLA-B*27 Negative B27 allele interpretation for all loci based on IMGT/HLA database version 3.33.0 This test was developed and its performance characteristics determined by [facility]. It has not been cleared or approved by the Food and Drug Administration. [facility] CLIA ID Number [id number] . This test was performed using PCR (Polymerase Chain Reaction)/SSOP (Sequence Specific Oligonucleotide Probes) technique. SBT (Sequence Based Typing) and/or SSP (Sequence Specific Primers) may be used as supplemental methods when necessary. Please contact [facility] Customer Service at if you have any questions. . Director of HLA Laboratory Dr Cameron Martinez, PhD FASTING Blood BLOOD SPECIMEN / Unknown 04/10/2018 11:21 AM LABOUR MARKET ECONOMIST 04/10/2018 Narrative Resulting Agency Comment [facility] DNA [address] [facility] [id number] Narendra Spencer MD LAB - CHEMISTRY OR DERABLES [facility] INSURANCE BILL [address] [place] [address] * XR LUMBAR SPINE 2 OR 3VW (02/28/2018 12:15 PM LABOUR MARKET ECONOMIST) Anatomical Region Laterality Modality Spine Radiographic Kerrie ging 02/28/2018 12:4 4 PM LABOUR MARKET ECONOMIST Impressions 02/28/2018 1:28 PM LABOUR MARKET ECONOMIST 1. POSTERIOR FUSION L4-5. 2. SCOLIOSIS. 3. DEGENERATIVE CHANGES. Edited by Jackie Neumann on 02/28/2018 12:45 PM Reading Radiologist: Adrian Danielle MD on 02/28/2018 at 1:28 PM Narrative 02/28/2018 1:28 PM LABOUR MARKET ECONOMIST LUMBAR SPINE 3 VIEWS INDICATION: Low back [...] MD on 02/28/2018 at 1:28 PM [place] Paula DO DIAGNOSTIC IMAGING O RDERABLES * LAB [...] IMG IMPORT (12/13/2017 9:48 AM CDT) [place] Chai GORDILLO DIAGNOSTIC IMAGING O RDERABLES [facility] RADIOLOGY [address] [address] * PAIN MANAGEMENT PROCEDURE TIME (09/13/2017 10:28 AM CDT) Only the most recent of3 resultswithin the time period is included. Anatomical Region Laterality Modality Radio Fluoroscop y Narrative 09/13/2017 12:00 PM CDT Sandhya Goldman DO 09/13/2017 9:47 AM Transforaminal Lumbar Epidural and Nerve Root Steroid Injection on Right L4 and L5 Level(s) Dx: M54.16 - Lumbar Radiculopathy Consent: The patient was [...] intravascular injection. The needle was removed intact. The patient tolerated the procedure well and there were no complications. Recovery: The patient was taken to the recovery area where they remained in stable condition. Postprocedure instructions were given to the patient and a follow up appointment was confirmed. The patient was also discharged with information on how to reach the clinic or technical support consultant physician at anytime for questions or complaints. [...] PM CDT) 09/05/2013 1:10 PM CDT Narrative [facility] - 09/05/2013 5:01 PM CDT Transthoracic Echocardiogram 2D, M-mode, Doppler, and Color Doppler Patient: JIN GODINEZ MR number: [id number] Height: 70 in Weight: 274.3 lb BSA: 2.39 m Study date: 05-Sep-2013 : 1950 Age: 63 years Gender: Male Race: Allergies: CLINDAMYCIN Referring Physician: Shana Murray DO Biblical Languages Professor: Maricarmen Martinez Reading Physician: Shana Murray DO [...] Color Doppler Patient: JIN GODINEZ MR number: [id number] Height: 70 in Weight: 274.3 lb BSA: 2.39 m Study date: 05-Sep-2013 : 1950 Age: 63 years Gender: Male Race: Allergies: CLINDAMYCIN Referring Physician: Shana Murray DO Biblical Languages Professor: Maricarmen Martinez Reading Physician: Shana Murray DO [...] 05-Sep-2013 17:00:56 Shana Murray DO ECHO ORDERABLES Performing Organization Address City/State/[facility] Co de Phone Number [facility] [address] [place] [address] * [place] MYOCARD PERFUSION SPECT STRESS AND REST (09/05/2013 12:34 PM CDT) Anatomical Region Laterality Modality Chest Nuclear Medicine 09/05/2013 12:0 0 PM CDT Narrative Transcriptions Shana Murray DO - 09/05/2013 2:26 PM CDT [place] [address] Department of Cardiology Stress Test PATIENT NAME: JIN GODINEZ PHYSICIAN: JANIYA KIM MR#: [id number] : 1950 ROOM #: [id number] AGE: CSN: [id number] SEX: M ADMIT: 09/04/2013 DATE OF PROCEDURE: 09/05/2013 INDICATIONS: The patient is a 63-year-old male with shortness of breath and atypicalchest symptoms. No prior history of coronary disease. History of hypertensionand asthma. PERFORMING CLOTH WORKER: [place] Hu M.D. PROTOCOL: The patient was [...] Mildly reduced left ventricular systolic function. Ejection otbvintl34%. NAME: JIN GODINEZ DICTATOR: SHANA MURRAY MD DICTATED FOR: /MODL JOB ID: [id number] Department of Cardiology Shana Murray DO NM ORDERABLES * RESPIRATORY VIRUS PANEL BY PCR (09/05/2013 10:36 AM CDT) Adenovirus PCR Not detected Not detected, Invalid, Indeterminate 09/05/2013 3:20 PM CDT [facility] Human Metapneumovirus PCR Not detected Not detected, Invalid, Indeterminate 09/05/2013 3:20 PM CDT [facility] Human Rhinovirus/Entero virus PCR Not detected Not detected, Invalid, Indeterminate 09/05/2013 3:20 PM CDT [facility] Influenza A Non Subtyped PCR Not detected Not detected, Invalid, Indeterminate 09/05/2013 3:20 PM CDT [facility] Influenza A H1 PCR Not detected Not detected, Invalid, Indeterminate 09/05/2013 3:20 PM CDT [facility] Influenza A H3 PCR Not detected Not detected, Invalid, Indeterminate 09/05/2013 3:20 PM CDT [facility] Influenza A H1 2009 PCR Not detected Not detected, Invalid, Indeterminate 09/05/2013 3:20 PM CDT [facility] Influenza B PCR Not detected Not detected, Invalid, Indeterminate 09/05/2013 3:20 PM CDT [facility] Mycoplasma pneumoniae PCR Not detected Not detected, Invalid, Indeterminate 09/05/2013 3:20 PM CDT [facility] Parainfluenza Virus 1 PCR Not detected Not detected, Invalid, Indeterminate 09/05/2013 3:20 PM CDT [facility] Parainfluenza Virus 2 PCR Not detected Not detected, Invalid, Indeterminate 09/05/2013 3:20 PM CDT [facility] Parainfluenza Virus 3 PCR Not detected Not detected, Invalid, Indeterminate 09/05/2013 3:20 PM CDT [facility] Parainfluenza Virus 4 PCR Not detected Not detected, Invalid, Indeterminate 09/05/2013 3:20 PM CDT [facility] Respiratory Syncytial Virus PCR Not detected Not detected, Invalid, Indeterminate 09/05/2013 3:20 PM CDT [facility] Microbiology NASOPHARYNGEAL SWAB / Unknown Collection / Unknown 09/05/2013 10:36 AM CDT 09/05/2013 11:11 AM CDT Isiah Ruiz MD LAB - MICROBIOLOGY O RDERABLES [facility] [address] [place] [address], [facility] * INFLUENZA A+B+RSV PCR PANEL (09/05/2013 10:36 AM CDT) [facility] Influenza A PCR Not Detected Not Detected, Invalid 09/06/2013 5:57 AM CDT [facility] Influenza B PCR Not Detected Not Detected, Invalid 09/06/2013 5:57 AM CDT [facility] RSV PCR Not Detected Not Detected, Invalid 09/06/2013 5:57 AM CDT [facility] Microbiology NASOPHARYNGEAL SWAB / Unknown Collection / Unknown 09/05/2013 10:36 AM CDT 09/05/2013 11:11 AM CDT Isiah Ruiz MD LAB - MICROBIOLOGY O RDERABLES [facility] [address] [place], [address] * CT CHEST WITH CONTRAST (09/05/2013 8:53 [...] - 350 mg/dL 09/05/2013 11:56 AM CDT [facility] Comment: IgG 786 650 - 1,600 mg/dL 09/05/2013 11:56 AM T [facility] Comment: IgM 61 50 - 300 mg/dL 09/05/2013 11:56 AM T [facility] Comment: Blood BLOOD SPECIMEN / Unknown 09/05/2013 4:48 AM CDT 09/05/2013 11:27 AM CDT Hammad Bentley MD LAB - CHEMISTRY ORDERABLES Performing Organization Address City/[facility]/ZIP Co de Phone Number [facility] [address] [place] [address] * (ABNORMAL) LIPID PROFILE (09/05/2013 4:48 AM CDT) Cholesterol 252(H) <200 mg/dL 09/05/2013 6:10 AM T [facility] Triglycerides 141 <150 mg/dL 09/05/2013 6:10 AM T [facility] HDL Cholesterol 43 >40 mg/dL 4 6:10 AM T [facility] LDL Calculated 181(H) <130 mg/dL 09/05/2013 6:10 AM T [facility] VLDL Calculated 28 <=30 mg/dL 4 6:10 AM T [facility] Chol HDL Ratio 5.9(H) <4.5 09/05/2013 6:10 AM T [facility] Blood BLOOD SPECIMEN / Unknown Lab Venipuncture / Unknown 09/05/2013 4:48 AM CDT 09/05/2013 5:43 AM CDT Cameron Daley MD LAB - CHEMISTRY ORDE ELIECER Performing Organization Address City/[facility] Co de Phone Number [facility] [address] [place] [address] * C-REACTIVE PROTEIN SENSITIVE (09/04/2013 7:32 PM CDT) C-Reactive Protein High Sensitivity 0.18 <0.30 mg/dL 09/04/2013 8:14 PM T [facility] Blood BLOOD SPECIMEN / Unknown Lab Venipuncture / Unknown 09/04/2013 7:32 PM CDT 09/04/2013 7:39 PM CDT Narrative [facility] - 09/04/2013 8:14 PM CDT C-REACTIVE PROTEIN SENSITIVE INTERPRETATION Patients with higher hs-CRP concentrations are more likely to develop stroke, myocardial infarction, and severe peripheral vascular disease. CRP is a nonspecific marker of inflammation and a variety of conditions other than atherosclerosis may cause elevated concentrations. If the first result is greater than 0.30 mg/dL, recommend repeating test at least 2 weeks later in a metabolically stable state, free of infection or acute illness. The lower of the two results should be used to determine the patient's risk. C-REACTIVE PROTEIN SENSITIVE results are used to assign risk as follows: Less than 0.10 mg/dL Low risk 0.10-0.30 mg/dL Average risk 0.31-0.99 mg/dL High risk Greater than 0.99 mg/dL Very high risk (Clin Chem 2009; 55:378-84) Isiah Ruiz MD LAB - CHEMISTRY DORIAN GONZÁLES Performing Organization Address City/[facility]/ZIP Co de Phone Number [facility] [address] [place] [address] * IGE BLOOD (09/04/2013 7:32 PM CDT) [facility] IgE Total 59.6 <158 IU/mL 09/04/2013 8:20 PM CDT [facility] Blood BLOOD SPECIMEN / Unknown Lab Venipuncture / Unknown 09/04/2013 7:32 PM CDT 09/04/2013 7:39 PM CDT Isiah Ruiz MD LAB - CHEMISTRY DORIAN GONZÁLES Performing Organization Address City/[facility]/ZIP Co de Phone Number [facility] [address] [place] [address] * TROPONIN I (09/04/2013 3:05 PM CDT) Only the most recent of2 resultswithin the time period is included. [facility] Troponin I <0.015 0.000 - 0.049 ng/mL 09/04/2013 4:33 PM CDT [facility] Blood BLOOD SPECIMEN / Unknown Lab Venipuncture / Unknown 09/04/2013 3:05 PM CDT 09/04/2013 3:52 PM CDT Narrative [facility] - 09/04/2013 4:33 PM CDT [...] - CHEMISTRY DORIAN GONZÁLES Performing Organization Address [facility] Co de Phone Number [facility] [address] [place] [address] * D-DIMER (09/04/2013 3:05 PM CDT) D-Dimer 0.33 0 - 0.5 mg/L FEU 09/04/2013 4:31 PM CDT [facility] Blood BLOOD SPECIMEN / Unknown Lab Venipuncture / Unknown 09/04/2013 3:05 PM CDT 09/04/2013 3:52 PM CDT Narrative [facility] - 09/04/2013 4:31 PM CDT Elevated results above the normal range may indicate DIC in the appropriate clinical setting. Serial evaluations may yield information regarding the clinical [...] - COAGULATION OR DERABLES Performing Organization Address [facility] Co de Phone Number [facility] [address] [place] [address] * XR CHEST PA AND LATERAL (ROUTINE) [...] - 11.4 sec 09/04/2013 12:08 PM CDT [facility] INR 0.99 0.89 - 1.07 09/04/2013 12:08 PM CDT [facility] PTT 29.6 24.0 - 33.0 sec 09/04/2013 12:08 PM CDT [facility] Blood BLOOD SPECIMEN / Unknown 09/04/2013 11:31 AM CDT 09/04/2013 11:46 AM CDT Narrative [facility] - 09/04/2013 12:08 PM CDT Conventional Anticoagulant Therapy INR Reference Ranges: 2.0-3.0 Intensive Anticoagulant Therapy INR Reference Ranges: 2.5-3.5 Janiya MORA LAB - COAGULATION OR DERABLES [facility] [address] [place] [address] * B-TYPE NATRIURETIC PEPTIDE (09/04/2013 11:31 AM CDT) BNP 12 0 - 100 pg/mL 09/04/2013 1:26 PM CDT [facility] Blood BLOOD SPECIMEN / Unknown 09/04/2013 11:31 AM CDT 09/04/2013 11:46 AM CDT Narrative [facility] - 09/04/2013 1:26 PM CDT A cutoff of 100 pg/ml has been demonstrated to provide the maximal combination of sensitivity, specificity, and negative predictive value for contributing to the diagnosis of congestive heart failure(CHF) only. A BNP value greater than or equal to 100 pg/ml is consistent with a diagnosis of CHF in the appropriate clinical setting. False positive results are more common in females greater than 75 years of age. Blood concentrations of natriuretic peptides may also be elevated in patients with myocardial infarction and in patients who are candidates for or are undergoing renal dialysis. Janiya MORA LAB - CHEMISTRY ORDSilas GONZÁLES Performing Organization Address [facility] Co de Phone Number [facility] [address] [place] [address] * EKG 12-LEAD (09/04/2013 11:25 AM CDT) [facility] Signature Ventricular Rate 78 BPM [facility]USE Atrial Rate 78 BPM [facility] P-R Interval 158 ms [facility] QRS Duration ms 98 ms [facility] Q-T Interval ms 368 ms [facility] QTC Calculation (Bezet) 419 ms [facility] Calculated P [place] 43 degrees [facility] Calculated R [place] -28 degrees [facility] Calculated T [place] 35 degrees [facility] Interpretation EKG NORMAL SINUS RHYTHM POSSIBLE LEFT ATRIAL ENLARGEMENT INCOMPLETE RIGHT BUNDLE BRANCH BLOCK BORDERLINE ECG NO PREVIOUS ECGS AVAILABLE Confirmed by MD ELSI, ALANIS Worthington ([id number]) on 09/05/2013 7:19:44 AM [facility] 09/04/2013 11:2 5 AM CDT 09/05/2013 7:19 AM CDT Narrative [facility] - 09/05/2013 6:19 AM CDT Procedure Note Document, Scanned - 09/04/2013 3:57 PM CDT Transcriptions Document, Scanned - 09/05/2013 7:20 AM CDT Janiya MORA ECG ORDERABLES Performing Organization Address [facility] Co de Phone Number [facility] * ENDOSCOPY, COLON, SCREENING (01/31/2012 1:26 PM LABOUR MARKET ECONOMIST) Narrative Transcriptions Amaury Noyola MD - 01/31/2012 1:26 PM CST Amaury Noyola MD GI PROCEDURE ORDERAB LES [facility] * GROSS + MICRO EXAM (01/31/2012 1:00 PM LABOUR MARKET ECONOMIST) Only the most recent of2 resultswithin the time period is included. Result CASE NUMBER [id number] Comment: ORDERING PHYSICIAN AMAURY NOYOLA SPECIMEN TYPE Colon Sigmoid-polyp bx Date 01/31/2012 Physician Inessa Noyola Gross Description The specimen is submitted as sigmoid polyp consists of three pink mucosal tissues each < 1 mm, submitted entirely in one block. RN/na Microscopic Exam The sigmoid colon polyp is a hyperplastic polyp. MM/na Diagnosis 1. Sigmoid colon, polyp, biopsy -- Hyperplastic polyp MM/na Baggage Handling Supervisor na Pathologist Tammie Chandler MD CPT code 85673 Performed By [facility] at [facility], [address] [place] [address] MISCELLANEOUS SAMPLES / Unknown 01/31/2012 1:00 PM LABOUR MARKET ECONOMIST 01/31/2012 3:42 PM LABOUR MARKET ECONOMIST Historical Provider LAB - PATHOLOGY/C YTOLOGY ORDERABLES Care Teams Library Clerk Talking Books Relationship Specialty Start Date End Date Michael Hussein MD [address] [place] [address] PCP - General Internal Medicine 06/04/21
--- OUTSIDE RECORDS SUMMARY | 2024-05-11 13:02 | XMS_ITS | Clinical Summary ---
Author Organization [facility] [employer] Address [address] [place] [address] Care Team Providers Care Binder Stripper Hand Name Role Phone Michael Hussein MD Primary Care Provider [phone] Source Comments [facility] [employer],non-owned Affiliates and Associated Physician Practices is amultiple site organization consisting of ambulatory clinics and hospital sitesin [place], [place], [place] and [place]. This disclosure is being madepursuant to the Care Everywhere program and may not contain all information available regarding this patient. 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 [facility]umatoid [facility] sites with negative rheumatoid factor 05/26/2017 Overview [...] 12/02/2022 Assessment & Plan (06/04/2021 11:10 AM TERRITORY MANAGER GENERAL SALES): Reviewed potential inherent risks with the continued [...] Description 12/06/2024 9:00 AM CDT Office Visit [facility] - Rheumatology [address], [address] [place] [address] Tuan Poon DO [address] [facility] [address] [place] [address] Health Maintenance Due Date Last Done Comments COLOGUARD (AGES 45-75) - COLON CA SCREENING 1950 CT COLONOGRAPHY - COLON CA SCREENING 1950 FIT - COLON CA SCREENING 1950 FLEX SIG - COLON CA SCREENING 1950 MEDICARE AWV 12 MONTHS 1950 DTAP/TDAP/TD VACCINES (1 - Tdap) 1971 PNEUMOCOCCAL VACCINE 50+ (1 of 1 - PCV) 2002 ZOSTER VACCINE (1 of 2) 2002 HEPATITIS B VACCINE (1 of 3 - Risk 3-dose series) 2012 COLON MONITORING 01/30/2017 01/31/2012 Colorectal Cancer Screening 01/30/2017 COLONOSCOPY - COLON CA SCREENING 01/30/2022 01/31/2012 SCREENING FOR DIABETES 11/06/2023 , 07/10/2018, 04/10/2018, Additional history exists COVID-19 VACCINE ( season) 2023 06/19/2020, 05/22/2020 INFLUENZA VACCINE (#1) [...] this topic Medical Devices Implanted Type Area Animal Care Specialist Device Identifier Shelf Expiration Date Model / Serial / Lot Graft Bone Alfs + Dbm 5ml Ptty Implanted:Qty: 1 on 12/20/2017 by [place] Paula DO at [facility] N/A: Spine Lumbar [employer] 04/27/2019 [id number] / / [id number] [place] Set Screw Implanted:Qty: 4 on 12/20/2017 by [place] Paula DO at [facility] N/A: Spine Lumbar Medical [facility] [id number] / / 6.5x50mm Screw Implanted:Qty: 2 on 12/20/2017 by [place] Paula DO at [facility] N/A: Spine Lumbar [employer] [id number] / / 6.5x55mm Screw Implanted:Qty: 1 on 12/20/2017 by [place] Paula DO at [facility] N/A: Spine Lumbar [employer] [id number] / / 6.5x60mm Screw Implanted:Qty: 1 on 12/20/2017 by [place] Paula DO at [facility] N/A: Spine Lumbar [employer] [id number] / / 35mm Flavio Implanted:Qty: 1 on 12/20/2017 by [place] Paula DO at [facility] N/A: Spine Lumbar [employer] [id number] / / 40mm Flavio Implanted:Qty: 1 on 12/20/2017 by [place] Paula DO at [facility] N/A: Spine Lumbar [employer] [id number] / / Procedures Procedure Name Priority Date/Time Associated Diagnosis Comments COMPREHENSIVE METABOLIC PANEL 11/05/2020 3:48 PM CDT HEPATITIS SCREEN ACUTE 3:20 PM TERRITORY MANAGER GENERAL SALES ENDOSCOPY, COLON, SCREENING Routine 01/31/2012 1:26 PM TERRITORY MANAGER GENERAL SALES from Last 3 Months or Most Recently Relevant to Health Maintenance Results * (ABNORMAL) COMPREHENSIVE METABOLIC PANEL (11/05/2020 3:48 PM CDT) [facility] Glucose 99 65 - 99 mg/dL [facility] Comment: Fasting reference interval BUN 32(H) 7 - 25 mg/dL [facility] Creatinine 1.36(H) 0.70 - 1.25 mg/dL [facility] Comment: For patients >49 years of age, the reference limit for Creatinine is approximately 13% higher for people identified as -Italian. eGFR by MDRD 53(L) > OR = [...] 46 U/L [facility] Comment: Test Performed at: [facility] [address] [place] [address] SHEILA PÉREZ DO,MPH 11/05/2020 3:48 PM CDT 11/05/2020 3:49 PM CDT Narendra Spencer MD LAB - CHEMISTRY OR DERABLES Performing Organization Address City/State/[facility] Co de Phone Number [facility] [address] [place] [address] * HEPATITIS SCREEN ACUTE (02/06/2020 3:20 PM TERRITORY MANAGER GENERAL SALES) Hepatitis A Virus Antibody IgM NON-REACT LINDA NON-REACT LINDA [facility] Comment: For additional information, please refer to http://education.LIBCAST/faq/LVY784 (This link is being provided for informational/ [...] a test for HCV RNA (test code 50969) is suggested. For additional information please refer to http://education.[employer].Cloud Content/faq/LZP00l6 (This link is being provided for informational/ educational purposes only.) Test Performed at: [facility] [address] [address] SHEILA PÉREZ DO,MPH 02/06/2020 3:20 PM TERRITORY MANAGER GENERAL SALES 02/06/2020 3:21 PM TERRITORY MANAGER GENERAL SALES Narendra Spencer MD LAB - CHEMISTRY OR DERABLES Performing Organization Address [facility] Co de Phone Number [employer] [address] [place] [address] * ENDOSCOPY, COLON, SCREENING (01/31/2012 1:26 PM TERRITORY MANAGER GENERAL SALES) Narrative Transcriptions Amaury Noyola MD - 01/31/2012 1:26 PM CST Amaury Noyola MD GI PROCEDURE ORDERAB LES Performing Organization Address City/[facility] Co de Phone Number [facility] ENDOSCOPY from Last 3 Months or Most Recently Relevant to Health Maintenance Advance Directives Documents on File Type Date Recorded Patient Bacteriology Professor Expl anation Adv Directive/Living Will/POA 12/20/2017 Adv Directive/Living Will/POA 09/06/2013 10:31 PM * Full Code (Latest Code Status on File) Date Activated Date Inactivated Comments 12/20/2017 5:02 PM 12/22/2017 1:45 PM * Full Code Date Activated Date Inactivated Comments 09/04/2013 2:46 PM 09/05/2013 6:37 PM Care Teams Binder Stripper Hand Relationship Specialty Start Date End Date Michael Hussein MD [address] [place] [address] PCP - General Internal Medicine 06/04/21
--- OUTSIDE RECORDS SUMMARY | 2024-05-11 13:02 | XMS_ITS | Referral Summary ---
Author Organization [facility] Address [address] [place] [address] Care Team Providers Care Nat Instructor Name Role Phone Michael Hussein MD Primary Care Provider [phone] Source Comments [facility],non-owned Affiliates and Associated Physician Practices is amultiple site organization consisting of ambulatory clinics and hospital sitesin [place], [place], [place] and [place]. This disclosure is being madepursuant to the Care Everywhere program and may not contain all information available regarding this patient. 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 Rheumatoid arthritis of [facility] sites with negative rheumatoid factor 05/26/2017 [...] 12/02/2022 Assessment & Plan (06/04/2021 11:10 AM PORTABLE PINCH RIVETER): Reviewed potential inherent risks with the continued [...] Description 12/06/2024 9:00 AM CDT Office Visit [facility] - Rheumatology [address], [address] [place] [address] Tuan Poon DO [address] [place] [address] Medical Devices Implanted Type Area Brand Communications Manager Device Identifier Shelf Expiration Date Model / Serial / Lot Graft Bone Alfs + Dbm 5ml Ptty Implanted:Qty: 1 on 12/20/2017 by Easton Paula DO at [facility] N/A: Spine Lumbar Allosource 04/27/2019 [id number] / / [id number] Mark Set Screw Implanted:Qty: 4 on 12/20/2017 by Easton Paula DO at [facility] N/A: Spine Lumbar [employer] [id number] / / 6.5x50mm Screw Implanted:Qty: 2 on 12/20/2017 by Easton Paula DO at [facility] N/A: Spine Lumbar [employer] [id number] / / 6.5x55mm Screw Implanted:Qty: 1 on 12/20/2017 by Easton Paula DO at [facility] N/A: Spine Lumbar [employer] [id number] / / 6.5x60mm Screw Implanted:Qty: 1 on 12/20/2017 by Easton Paula DO at [facility] N/A: Spine Lumbar [employer] [id number] / / 35mm Flavio Implanted:Qty: 1 on 12/20/2017 by Easton Paula DO at [facility] N/A: Spine Lumbar [employer] [id number] / / 40mm Flavio Implanted:Qty: 1 on 12/20/2017 by Easton Paula DO at [facility] N/A: Spine Lumbar [employer] [id number] / / Procedures Procedure Name Priority Date/Time Associated Diagnosis Comments COMPREHENSIVE METABOLIC PANEL 11/05/2020 3:48 PM CDT HEPATITIS SCREEN ACUTE 0 3:20 PM PORTABLE PINCH RIVETER ENDOSCOPY, COLON, SCREENING Routine 01/31/2012 1:26 PM PORTABLE PINCH RIVETER from Last 3 Months or Most Recently [...] approximately 13% higher for people identified as -Puerto Rican. eGFR by MDRD 53(L) > OR = [...] 46 U/L [facility] Comment: Test Performed at: [facility] [address] [place] [address] SHEILA PÉREZ DO,MPH 11/05/2020 3:48 PM CDT 11/05/2020 3:49 PM CDT Narendra Spencer MD LAB - CHEMISTRY OR DERABLES [facility] [address] [place] [address] * HEPATITIS SCREEN ACUTE (02/06/2020 3:20 PM PORTABLE PINCH RIVETER) Hepatitis A Virus Antibody IgM NON-REACT LINDA NON-REACT LNIDA [facility] Comment: For additional information, please refer to http://Blinkit.Mind-Alliance Systems/faq/KJK950 (This link is being provided for informational/ [...] a test for HCV RNA (test code 00639) is suggested. For additional information please refer to http://Blinkit.[employer]/faq/WJG85x4 (This link is being provided for informational/ educational purposes only.) Test Performed at: [facility] [address] [place] [address] SHEILA PÉREZ DO,MPH 02/06/2020 3:20 PM PORTABLE PINCH RIVETER 02/06/2020 3:21 PM PORTABLE PINCH RIVETER Narendra Spencer MD LAB - CHEMISTRY OR DERABLES Performing Organization Address [facility] de Phone Number [facility] [address] [place] [address] * ENDOSCOPY, COLON, SCREENING (01/31/2012 1:26 PM PORTABLE PINCH RIVETER) Narrative Transcriptions Amaury Noyola MD - 01/31/2012 1:26 PM CST Amaury Noyola MD GI PROCEDURE ORDERAB LES Performing Organization Address [facility] Co de Phone Number [facility] ENDOSCOPY from Last 3 Months or Most Recently Relevant to Health Maintenance Advance Directives Documents on File Type Date Recorded 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
[2024-05-11 13:18] VITALS: BP 158/67; PULSE 78; RESP 16; TEMP 36.6; O2SAT 98; BMI 29.0
[2024-05-11] MEDS: SODIUM CHLORIDE 0.9% IVPB (13:30)
[2024-05-11] MEDS: ABATACEPT IVPB (13:30)
[2024-05-11] MEDS: MALTOSE IVPB (13:30)
[2024-05-11 14:03] VITALS: BP 132/77; PULSE 72; RESP 14; O2SAT 98
--- NOTE | 2024-05-11 14:04 | PC.NURSE ---
Patient here for monthly Orencia infusion. Education given. No concerns voiced. Infusion administered. SEE MAR/patient care note. Tolerated well.
== END 2024-05-11 12:54 | disposition home or self-care (01) ==
LOC: CHSLAB 12:57 → CHSTREATRM 13:05
PROVIDERS: PCP Internal Medicine; Visit Provider Internal Medicine Rheumatology
DX: M06.9 Rheumatoid arthritis, unspecified (principal)
CPT/HCPCS: 96365; J0129

== ENCOUNTER 2024-06-04 07:22 | Outpatient (CLI) | payer MEDICARE, SELFPAY ==
--- OUTSIDE RECORDS SUMMARY | 2024-06-04 07:26 | XMS_ITS ---
Author Organization [facility] Address [address] [facility] [address] [place], [place] [id number] Care Team Providers Care Tube Inspector Name Role Phone Ronald Cristobal Unavailable [phone] Migration, Provider Unavailable Unavailable Allergies Allergen (clinical drug ingredient) Drug/Non Drug Allergy documented on EMR Reaction Allergy Type Onset Date Status HYDROCODONE CP (uncoded) Unknown Allergy Active amoxicillin / clavulanate Augmentin Unknown Drug Allergy Active clindamycin Clindamycin Unknown Drug Allergy Act maritza REASON FOR VISIT [facility] Conversion Encounter Medications Medication SIG [...] review and pick correct strength-formula tion from Yastspan options. If intended option is not shown, [...] Location Date Provider Diagnosis [facility] [place] [address] [facility] [address] [place], [place] [id number] 03/10/2024 Provider Migration ACUTE OTITIS EXTERNA NEC [...] and drug interaction check* Progress Notes * GODINEZLebronningDOB:1950 (74 yo M)Acc No.[id number]:03/10/2024 Patient: Brian MOSELEY Provider: Veronica claire Migration :1950 A ge:74 Y S ex:Male Date:03/10/2024 Address:[address] [place] [address] Subjective: * Chief Complaints: * 1 . Multum To Medispan Conversion Encounter. * Medical History: * Medications: T aking Amoxicillin 500 MG Capsule 1 cap(s) orally 3 times a day , Taking oxyCODONE HCl 7.5 MG TABLET 1 TAB(S) ORALLY EVERY 6 HOURS , Notes to Pharmacist: *Please review and pick correct strength-formulation from Yastspan options. If intended option is not shown, [...] cap(s) orally once a day , Taking Amphetamine- Dextroamphetamine 20 MG Tablet 1 tab(s) orally 2 [...] and drug interaction check* * Allergies: C lindamycin, Augmentin, HYDROCODONE CP. Objective: * Vitals: * Physical Examination: Assessment: * Assessment: 1. A CUTE OTITIS EXTERNA NEC - 380.22 N otes :lt Plan: * Treatment: * * Electronic signature of Prov ider Migration on 06/04/2024 at 07:26 AM CDT Sign off status: Pending * Provider: Veronica claire Migration Date: 05/11/2023 Generated for Margie hess/Radha/Traitting on: 06/04/2024 07:26 AM CDT
--- OUTSIDE RECORDS SUMMARY | 2024-06-04 07:26 | XMS_ITS | Clinical Summary ---
Author Organization [facility] Address [address] [place] [address] Care Team Providers Care Hand Lacer Name Role Phone Unavailable Primary Care Provider [...]
--- OUTSIDE RECORDS SUMMARY | 2024-06-04 07:26 | XMS_ITS | Clinical Summary ---
Author Organization [facility] [address] [facility] Address [address] [place] [address] Care Team Providers Care Director Of Hemophilia Name Role Phone Stephan Tomas DO Primary [...] Colonography Q 5 years 1997 PNEUMOCOCCAL VACCINE 50+ YEARS (1 of 1 - PCV) 03/08/20 02 ZOSTER VACCINE (1 of 2) 2002 INFLUENZA VACCINE (#1) 2023 RSV VACCINE (60+ or ) (1 - 1-dose 75+ series) 2027 Insurance MEDICARE PART A AND B [place] [id number] [place] [address] Care Teams Director Of Hemophilia Relationship Specialty Start Date End Date Stephan Tomas DO [address] [place] [address] PCP - General Family Practice 09/25/18
--- OUTSIDE RECORDS SUMMARY | 2024-06-04 07:26 | XMS_ITS | Patient Health Record ---
Author Organization [facility] Address [address] [facility] [address] [place], [place] [address] Care Team Providers Care Tile And Mottle Supervisor Name Role Phone Ronald Cristobal Unavailable [phone] Migration, Provider Unavailable Unavailable Allergies Allergen (clinical [...] review and pick correct strength-formula tion from PredictSpringan options. If intended option is not shown, [...] Status Risk Notes Problem Acute otitis externa (95452580) ACUTE OTITIS EXTERNA NEC (380.22) Active confirmed lt Problem Chronic infection of sinus (35100057) Chronic infection of sinus NOS (473.9) Active confirmed Problem Otalgia NOS (388.70) Active confirmed lt Encounters Encounter Location Date Provider Diagnosis [facility] [address] [facility] [address] [place], [place] [id number] 03/10/2024 Provider Migration ACUTE OTITIS EXTERNA NEC 380.22 Assessments Encounter Date Diagnosis (ICD Code) Assessment Notes Treatment Notes Treatment Clinical Notes Section Notes 03/10/2024 ACUTE OTITIS EXTERNA NEC (ICD9-CM - 380.22) lt Plan Of Treatment No Information Insurance Providers Payer Name Payer Address Payer Phone Subscriber Number Group Number Insured Name Patient Relationship to Insured Coverage Start Date Coverage End Date [facility] [address] [place] [address] [id number] Brian Abarca Self - patient is the [...]
--- OUTSIDE RECORDS SUMMARY | 2024-06-04 07:26 | XMS_ITS | Clinical Summary ---
Author Organization [facility] Address [address] [facility] [place] [address] Care Team Providers Care Rock Mason Name Role Phone Michael Hussein MD Primary Care Provider [phone] Source Comments [facility],non-owned Affiliates and Associated Physician Practices is amultiple site organization consisting of ambulatory clinics and hospital sitesin [place], [place], [place] and [place]. This disclosure is being madepursuant to the Care Everywhere program and may not contain all information available regarding this patient. Last updated 17.[facility] Allergies Active Allergy Reactions Criticality Noted Date [...] Active Problems Problem Noted Date Diagnosed Date MCC (current) use of i 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 Rheumatoid arthritis of [facility] sites with negative rheumatoid factor 05/26/2017 [...] 12/02/2022 Assessment & Plan (06/04/2021 11:10 AM IT WEB DEVELOPMENT CONSULTANT): Reviewed potential inherent risks with the continued [...] 9:00 AM CDT Office Visit [facility] - Rheumatology [address] [facility] [facility], [address] [place] [address] Tuan Poon DO [address] [facility] [address] [place] [address] Health Maintenance Due Date Last [...] this topic Medical Devices Implanted Type Area Sales Agent Marine Insurance Device Identifier Shelf Expiration Date Model / Serial / Lot Graft Bone Alfs + Dbm 5ml Ptty Implanted:Qty: 1 on 12/20/2017 by Easton Paula DO at [facility] N/A: Spine Lumbar Allosource 04/27/2019 [id number] / / [id number] [place] Set Screw Implanted:Qty: 4 on 12/20/2017 by Easton Paula DO at [facility] N/A: Spine Lumbar Medical [facility] [id number] / / 6.5x50mm Screw Implanted:Qty: 2 on 12/20/2017 by Easton Paula DO at [facility] N/A: Spine Lumbar [employer] [id number] / / 6.5x55mm Screw Implanted:Qty: 1 on 12/20/2017 by Easton Paula DO at [facility] N/A: Spine Lumbar [employer] [id number] / / 6.5x60mm Screw Implanted:Qty: 1 on 12/20/2017 by Easton Paula DO at [facility] N/A: Spine Lumbar [employer] [id number] / / 35mm Flavio Implanted:Qty: 1 on 12/20/2017 by Easton Paula DO at [facility] N/A: Spine Lumbar [employer] [id number] / / 40mm Flavio Implanted:Qty: 1 on 12/20/2017 by Easton Paula DO at [facility] N/A: Spine Lumbar [employer] [id number] / / Procedures Procedure Name Priority Date/Time Associated Diagnosis Comments COMPREHENSIVE METABOLIC PANEL 11/05/2020 3:48 PM CDT HEPATITIS SCREEN ACUTE 3:20 PM IT WEB DEVELOPMENT CONSULTANT ENDOSCOPY, COLON, SCREENING Routine 01/31/2012 1:26 PM IT WEB DEVELOPMENT CONSULTANT from Last 3 Months or Most Recently Relevant to Health Maintenance Results * (ABNORMAL) COMPREHENSIVE METABOLIC PANEL (11/05/2020 3:48 PM CDT) [facility] Glucose 99 65 - 99 mg/dL [facility] Comment: Fasting reference interval BUN 32(H) 7 - 25 mg/dL [facility] Creatinine 1.36(H) 0.70 - 1.25 mg/dL [facility] Comment: For patients >49 years of age, the reference limit for Creatinine is approximately 13% higher for people identified as -Ghanaian. eGFR by MDRD 53(L) > OR = [...] 46 U/L [facility] Comment: Test Performed at: [facility] [address] [place] [address] SHEILA PÉREZ DO,MPH 11/05/2020 3:48 PM CDT 11/05/2020 3:49 PM CDT Narendra Spencer MD LAB - CHEMISTRY OR DERABLES Performing Organization Address City/State/[facility] Co de Phone Number [facility] [address] [place] [address] * HEPATITIS SCREEN ACUTE (02/06/2020 3:20 PM IT WEB DEVELOPMENT CONSULTANT) Hepatitis A Virus Antibody IgM NON-REACT LINDA NON-REACT LINDA [facility] Comment: For additional information, please refer to http://education.[employer]/faq/ZWK480 (This link is being provided for informational/ [...] a test for HCV RNA (test code 73059) is suggested. For additional information please refer to http://education.Intilery.com.[employer]/faq/KRV53p3 (This link is being provided for informational/ educational purposes only.) Test Performed at: [facility] [address] [address] SHEILA PÉREZ DO,MPH 02/06/2020 3:20 PM IT WEB DEVELOPMENT CONSULTANT 02/06/2020 3:21 PM IT WEB DEVELOPMENT CONSULTANT Narendra Spencer MD LAB - CHEMISTRY OR DERABLES Performing Organization Address [facility] Co de Phone Number [employer] [address] [place] [address] * ENDOSCOPY, COLON, SCREENING (01/31/2012 1:26 PM IT WEB DEVELOPMENT CONSULTANT) Narrative Transcriptions Amaury Noyola MD - 01/31/2012 1:26 PM CST Amaury Noyola MD GI PROCEDURE ORDERAB LES Performing Organization Address City/[facility] Co de Phone Number [facility] ENDOSCOPY from Last 3 Months or Most Recently Relevant to Health Maintenance Advance Directives Documents on File Type Date Recorded Patient Ear Specialist Expl anation Adv Directive/Living Will/POA 12/20/2017 Adv Directive/Living Will/POA 09/06/2013 10:31 PM * Full Code (Latest Code Status on File) Date Activated Date Inactivated Comments 12/20/2017 5:02 PM 12/22/2017 1:45 PM * Full Code Date Activated Date Inactivated Comments 09/04/2013 2:46 PM 09/05/2013 6:37 PM Care Teams Rock Mason Relationship Specialty Start Date End Date Michael Hussein MD [address] [place] [address] PCP - General Internal Medicine 06/04/21
--- OUTSIDE RECORDS SUMMARY | 2024-06-04 07:26 | XMS_ITS | Patient Health Summary ---
Author Organization [facility] Address [address] [place] [address] Care Team Providers Care Securities Adviser Name Role Phone Michael Hussein MD Primary Care Provider [phone] Note [address] [facility],non-owned Affiliates and Associated Physician Practices is amultiple site organization consisting of ambulatory clinics and hospital sitesin [place], [place], [place] and [place]. This disclosure is being madepursuant to the Care Everywhere program and may not contain all information available regarding this patient. Last updated 17.[facility] Allergies * Bupropion(Shortness of Breath,Swelling) -High Criticality [...] Active Problems Problem Noted Date Diagnosed Date group home (current) use of i mmunosuppressive biologic (Orencia) [...] AM CDT Medical Devices Implanted Type Area Academic Support Coordinator Device Identifier Shelf Expiration Date Model / Serial / Lot Graft Bone Alfs + Dbm 5ml Ptty Implanted:Qty: 1 on 12/20/2017 by Easton Paula DO at [facility] N/A: Spine Lumbar [employer] 04/27/2019 [id number] / / [id number] [place] Set Screw Implanted:Qty: 4 on 12/20/2017 by Easton Paula DO at [facility] N/A: Spine Lumbar [employer] [id number] / / 6.5x50mm Screw Implanted:Qty: 2 on 12/20/2017 by Easton Paula DO at [facility] N/A: Spine Lumbar [employer] [id number] / / 6.5x55mm Screw Implanted:Qty: 1 on 12/20/2017 by Easton Paula DO at [facility] N/A: Spine Lumbar [employer] [id number] / / 6.5x60mm Screw Implanted:Qty: 1 on 12/20/2017 by Easton Paula DO at [facility] N/A: Spine Lumbar [employer] [id number] / / 35mm Flavio Implanted:Qty: 1 on 12/20/2017 by Easton Paula DO at [facility] N/A: Spine Lumbar [employer] [id number] / / 40mm Flavio Implanted:Qty: 1 on 12/20/2017 by Easton Paula DO at [facility] N/A: Spine Lumbar [employer] [id number] / / Procedures * LAB MISC TEST(Performed [...] for Sinusitis, unspecified chronicity, unspecified location * [place] NASAL ENDOSCOPY,DX(Performed 04/04/2019) Performed for Sinusitis, unspecified [...] VECTRA DA DISEASE ACTIVITY (06/04/2022 11:36 AM DIRECTOR OF CORPORATE REAL ESTATE) Vectra Score 13 [facility] INSURANCE BILL Comment: [...] developed and its performance characteristics determined by [employer]. It has not been cleared or approved by the Food and Drug Administration. (C)2020 [employer]. All Rights Reserved. This document contains private and confidential health information protected by state and federal law. If you have received this document in error please call [phone]. V.1.12-16 BEBE Result 1.8 ug/mL [facility] INSURANCE [...] established from 325,781 patient samples tested at [facility]. RA Percentile: Subject's biomarker level [...] BLOOD SPECIMEN / Unknown 06/04/2022 11:36 AM DIRECTOR OF CORPORATE REAL ESTATE 06/04/2022 Narrative Resulting Agency Comment Lab Testing performed at: [facility] [address] [place] [address] [phone] Tuan Poon DO LAB - SEROLOGY ORDER JACQUIE Performing Organization Address City/[facility] Co de Phone Number [facility] INSURANCE BILL [address] [place] [address] * SED RATE AUTO (ESR) (06/04/2022 11:36 AM DIRECTOR OF CORPORATE REAL ESTATE) Only the most recent of5 resultswithin the time period is included. Erythrocyte Sedimentation Rate Westergren 2 0 - 30 mm/hr [facility] INSURANCE BILL Comment:FASTING Blood BLOOD SPECIMEN / Unknown 06/04/2022 11:36 AM DIRECTOR OF CORPORATE REAL ESTATE 06/04/2022 Narrative Resulting Agency Comment Lab Testing performed at: [facility] [address] [facility] [phone] Tuan Poon DO LAB - HEMATOLOGY ORD ERABLES Performing Organization Address [facility] de Phone Number [facility] B[facility] [address] [place] [address] * LAB (05/26/2022) Only the most recent of8 resultswithin the time period is included. Scanned Document SCANNING ONLY * BETA-2 GLYCOPROTEIN 1 ANTIBODY IGG (05/18/2021 2:57 PM DIRECTOR OF CORPORATE REAL ESTATE) Beta-2 Glycoprotein I Antibody IgG <2.0 U/mL [...] aging. For additional information, please refer to http://education.Zaya/faq/LPY048 (This link is being provided for informational/ educational purposes only.) Test Performed at: [facility] [address] [address] MARY DRAPER MD 05/18/2021 2:57 PM DIRECTOR OF CORPORATE REAL ESTATE 05/18/2021 3:01 PM DIRECTOR OF CORPORATE REAL ESTATE Tuan Poon DO LAB - SEROLOGY ORDER JACQUIE Performing Organization Address City/State/[facility] Co de Phone Number [facility] [address] [place] [address] * BETA-2 GLYCOPROTEIN 1 ANTIBODY IGM (05/18/2021 2:57 PM DIRECTOR OF CORPORATE REAL ESTATE) Beta-2 Glycoprotein I Antibody IgM <2.0 U/mL [facility] Comment: Value Interpretation ----- < 20.0 Antibody [...] aging. For additional information, please refer to http://[facility] / TLL.Zaya/faq/MQD918 (This link is being provided for informational/ educational purposes only.) Test Performed at: [facility] [address] [address] MARY DRAPER MD 05/18/2021 2:57 PM DIRECTOR OF CORPORATE REAL ESTATE 05/18/2021 3:01 PM DIRECTOR OF CORPORATE REAL ESTATE Tuan Poon DO LAB - SEROLOGY ORDER JACQUIE Performing Organization Address City/State/[facility] Co de Phone Number [facility] [address] [place] [address] * CARDIOLIPIN ANTIBODY IGM (05/18/2021 2:57 PM DIRECTOR OF CORPORATE REAL ESTATE) [facility] Cardiolipin Antibody IgM <2.0 MPL-U/mL [facility] Comment: Value Interpretation ----- < 20.0 Antibody [...] aging. For additional information, please refer to http://[facility] / TLL.Zaya/faq/FPB216 (This link is being provided for informational/ educational purposes only.) Test Performed at: [facility] [place] [address] [place] [address] MARY DRAPER MD 05/18/2021 2:57 PM DIRECTOR OF CORPORATE REAL ESTATE 05/18/2021 3:01 PM DIRECTOR OF CORPORATE REAL ESTATE Tuanrandall Poon LAB - SEROLOGY ORDER JACQUIE Performing Organization Address [facility] de Phone Number [facility] [address] [place] [address] * CARDIOLIPIN ANTIBODY IGG (05/18/2021 2:57 PM DIRECTOR OF CORPORATE REAL ESTATE) Pathologist [facility] Cardiolipin Antibody IgG <2.0 GPL-U/mL [facility] Comment: Value Interpretation ----- < 20.0 Antibody [...] aging. For additional information, please refer to http://education.Zaya/faq/IZU244 (This link is being provided for informational/ educational purposes only.) Test Performed at: [facility] [address] [place] [address] MARY DRAPER MD 05/18/2021 2:57 PM DIRECTOR OF CORPORATE REAL ESTATE 05/18/2021 3:01 PM DIRECTOR OF CORPORATE REAL ESTATE Tuan Cleve LAB - SEROLOGY ORDER JACQUIE Performing Organization Address [facility]/ZIP [place] [address] * LUPUS ANTICOAGULANT PANEL W RFLX (05/18/2021 2:57 PM DIRECTOR OF CORPORATE REAL ESTATE) Lupus Anticoagulant NOT DETECTED [facility] Comment: A Lupus Anticoagulant is not detected. For more information on this test, go to: http://[facility] / TLL.Zaya/faq/SSW04l9 (This link is being provided for informational/ educational purposes only.) This interpretation is based on the following test results: PTT LA Screen 36 < OR = 40 sec [facility] dRVVT Screen 40 < OR = 45 sec [facility] Comment: Test Performed at: [facility] [address] [address] MARY DRAPER MD 05/18/2021 2:57 PM DIRECTOR OF CORPORATE REAL ESTATE 05/18/2021 3:01 PM DIRECTOR OF CORPORATE REAL ESTATE Tuan Poon DO LAB - HEMATOLOGY ORD ERABLES Performing Organization Address [facility] [place] [address] * (ABNORMAL) TSH (05/18/2021 2:57 PM DIRECTOR OF CORPORATE REAL ESTATE) Only the most recent of2 resultswithin the time period is included. Pathologist [facility] TSH 4.95(H) 0.40 - 4.50 mIU/L [facility] Comment: Test Performed at: [facility] [place] [address] [place] [address] SHEILA PÉREZ DO,MPH 05/18/2021 2:57 PM DIRECTOR OF CORPORATE REAL ESTATE 05/18/2021 3:01 PM DIRECTOR OF CORPORATE REAL ESTATE Tuan Poon DO LAB - CHEMISTRY ORDE RABLES Performing Organization Address [facility] [place] [address] * T4 FREE (05/18/2021 2:57 PM DIRECTOR OF CORPORATE REAL ESTATE) Pathologist [facility] T4 Free 1.0 0.8 - 1.8 ng/dL [facility] Comment: Test Performed at: [facility] [employer] [facility] [place] [place] [place] [address] SHEILA PÉREZ DO,MPH 05/18/2021 2:57 PM DIRECTOR OF CORPORATE REAL ESTATE 05/18/2021 3:01 PM DIRECTOR OF CORPORATE REAL ESTATE Tuan Poon DO LAB - CHEMISTRY DORIAN GONZÁLES Performing Organization Address [facility] de Phone Number [facility] [address] [place] [address] * C-REACTIVE PROTEIN (11/05/2020 3:48 PM CDT) Only the most recent of2 resultswithin the time period is included. [facility] C-Reactive Protein 0.3 <8.0 mg/L [facility] Comment: Test Performed at: [facility] [place] [address] SHEILA PÉREZ DO,MPH 11/05/2020 3:48 PM CDT 11/05/2020 3:49 PM CDT Narendra Spencer MD LAB - CHEMISTRY OR DERABLES Performing Organization Address [facility] de Phone Number [facility] [phone] [place] [address] * (ABNORMAL) CYCLIC CITRULLINATED PEPTIDE(CCP) AB IGG (11/05/2020 3:48 PM CDT) [facility] Cyclic Citrullinated Peptide Antibody IgG 45(H) UNITS [facility] Comment: Reference Range Negative: <20 Weak Positive: 20-39 Moderate Positive: 40-59 Strong Positive: >59 Test Performed at: [facility] [employer] [place] [place] [address] SHEILA PÉREZ DO,MPH 11/05/2020 3:48 PM CDT 11/05/2020 3:49 PM CDT Narendra Spencer MD LAB - CHEMISTRY OR DERABLES [facility] [address] [place] [address] * (ABNORMAL) CBC WITH DIFFERENTIAL (11/05/2020 3:48 PM CDT) Only the most recent of5 resultswithin the time period is included. [facility] White Blood Cell Count 6.5 3.8 [...] 0.3 % [facility] Comment: Test Performed at: [facility] [address] [place] [address] SHEILA PÉREZ DO,MPH 11/05/2020 3:48 PM CDT 11/05/2020 3:49 PM CDT Narendra Spencer MD LAB - HEMATOLOGY O RDERABLES [facility] [address] [place] [address] * (ABNORMAL) COMPREHENSIVE METABOLIC PANEL (11/05/2020 3:48 PM CDT) Only the most recent of5 resultswithin the time period is included. [facility] Glucose 99 65 - 99 mg/dL [facility] Comment: Fasting reference interval BUN 32(H) 7 - 25 mg/dL [facility] Creatinine 1.36(H) 0.70 - 1.25 mg/dL [facility] Comment: For patients >49 years of age, the reference limit for Creatinine is approximately 13% higher for people identified as -Guyanese. eGFR by MDRD 53(L) > OR = [...] 46 U/L [facility] Comment: Test Performed at: [facility] [address] SHEILA PÉREZ DO,MPH 11/05/2020 3:48 PM CDT 11/05/2020 3:49 PM CDT Narendra Spencer MD LAB - CHEMISTRY OR DERABLES [facility] [address] [place] [address] * CT ABDOMEN PELVIS OUTSIDE (06/24/2020) Anatomical Region Laterality Modality Other Narendra Spencer MD IMAGING * MRI TOTAL SPINE OUTSIDE (06/07/2020) Anatomical Region Laterality Modality Other Narendra Spencer MD IMAGING * MRI CERVICAL SPINE OUTSIDE (03/19/2020) Anatomical Region Laterality Modality Other Narendra Spencer MD IMAGING * QUANTIFERON-TB GOLD PLUS 1-TUBE (02/06/2020 3:20 PM DIRECTOR OF CORPORATE REAL ESTATE) Pathologist [facility] QuantiFERON TB Gold Plus NEGATIVE NEGATIVE [facility] [...] T-lymphocytes. For additional information, please refer to https://[facility] / TLL.Zaya/faq/PDB921 (This link is being provided for informational/ educational purposes only.) Test Performed at: [facility] [place] [address] [place] [address] SHEILA PÉREZ DO,MPH 02/06/2020 3:20 PM DIRECTOR OF CORPORATE REAL ESTATE 02/06/2020 3:21 PM DIRECTOR OF CORPORATE REAL ESTATE Narendra Spencer MD LAB - CHEMISTRY OR DERABLES [facility] [address] [place] [address] * HEPATITIS SCREEN ACUTE (02/06/2020 3:20 PM DIRECTOR OF CORPORATE REAL ESTATE) Pathologist [facility] Hepatitis A Virus Antibody IgM NON-REACT LINDA NON-REACT LINDA [facility] Comment: For additional information, please refer to http://[facility] / TLL.Zaya/faq/JAM809 (This link is being provided for informational/ [...] a test for HCV RNA (test code 34481) is suggested. For additional information please refer to http://education.Zaya/faq/YLO57c2 (This link is being provided for informational/ educational purposes only.) Test Performed at: [facility] [address] [place] [address] SHEILA PÉREZ DO,MPH 02/06/2020 3:20 PM DIRECTOR OF CORPORATE REAL ESTATE 02/06/2020 3:21 PM DIRECTOR OF CORPORATE REAL ESTATE Narendra Spencer MD LAB - CHEMISTRY OR DERABLES Performing Organization Address City/State/[facility] Co de Phone Number [facility] [address] [place] [address] * CT SINUS WO CONTRAST (04/27/2019 9:45 AM DIRECTOR OF CORPORATE REAL ESTATE) Anatomical Region Laterality Modality Head Computed Tomogra phy 04/27/2019 9:49 AM DIRECTOR OF CORPORATE REAL ESTATE Impressions 04/27/2019 12:25 PM DIRECTOR OF CORPORATE REAL ESTATE IMPRESSION: No CT evidence of sinusitis. Dictated by Cristobal Elliott M.D. (vice president of operations). I, Dr. JAYDA PAN have personally reviewed and interpreted this examination/study. This report was electronically signed by JAYDA PAN on 04/27/2019 12:25 PM . Narrative 04/27/2019 12:25 PM DIRECTOR OF CORPORATE REAL ESTATE EXAMINATION: CT sinus without contrast HISTORY: J32.9: [...] of sinusitis. Dictated by Cristobal Elliott M.D. (vice president of operations). I, Dr. JAYDA PAN have personally reviewed and interpreted this examination/study. This report was electronically signed by JAYDA PAN on 04/27/2019 12:25 PM . Estella Yoo MD CT ORDERABLES * [place] NASAL ENDOSCOPY,DX (04/04/2019 3:16 PM DIRECTOR OF CORPORATE REAL ESTATE) Narrative Jordan Rincon MD - 04/04/2019 3:16 PM DIRECTOR OF CORPORATE REAL ESTATE Jordan Rincon MD 04/04/2019 3:16 PM Procedure: [...] Reactive Non Reactive 07/26/2018 2:09 PM CDT [facility] HBsAg Non Reactive Non Reactive 07/26/2018 2:09 PM CDT [facility] HBc Antibody IgM Non Reactive Non Reactive 07/26/2018 2:09 PM CDT [facility] Blood BLOOD SPECIMEN / Unknown Venipuncture / Unknown 07/26/2018 11:46 AM CDT 07/26/2018 11:57 AM CDT Narendra Spencer MD LAB - CHEMISTRY OR DERABLES [facility] [address] [place] [address] * XR KNEE LEFT 4VW OR MORE [...] Resulting Agency Comment [facility] [address] [facility] [phone] Narendra Spencer MD LAB - CHEMISTRY OR DERABLES Performing Organization Address City/[facility] Co de Phone Number [facility] INSURANCE BILL [address] [place] [address] * QUANTIFERON TB-GOLD (07/10/2018 10:14 AM CDT) Pathologist [facility] QuantiFERON Incubation Incubation performed. [facility] INSURANCE BILL [...] Resulting Agency Comment Lab Testing performed at: [facility] [address] [facility] [id number] Narendra Spencer MD LAB - CHEMISTRY OR DERABLES Performing Organization Address City/[facility] Co de Phone Number [facility] INSURANCE BILL [address] [place] [address] * (ABNORMAL) CYCLIC CITRUL PEPTIDE ANTIBODY IGG/IGA (CCP) (04/10/2018 11:21 AM DIRECTOR OF CORPORATE REAL ESTATE) Pathologist [facility] CCP Antibodies IgG/IgA 58(H) 0 - 19 units [facility] INSURANCE BILL Comment: Negative <20 Weak positive 20 - 39 Moderate positive 40 - 59 Strong positive >59 FASTING Blood BLOOD SPECIMEN / Unknown 04/10/2018 11:21 AM DIRECTOR OF CORPORATE REAL ESTATE 04/10/2018 Narrative Resulting Agency Comment [address] [place] [phone] Narendra Spencer MD LAB - SEROLOGY ORD ERABLES [facility] INSURANCE BILL [address] [place] [address] * EUGENIE PANEL COMPREHENSIVE (04/10/2018 11:21 AM DIRECTOR OF CORPORATE REAL ESTATE) Anti-dsDNA Quantitative <1 0 - 9 IU/mL [facility] INSURANCE BILL Comment: Negative <5 Equivocal 5 - 9 Positive >9 RESEARCH LABORATORY TECHNICIAN Antibody 0.3 0.0 - 0.9 AI [facility] [...] Sm (anti-Owens) SLE 15 - 30% --------- RESEARCH LABORATORY TECHNICIAN Mixed Connective Tissue Disease 95% (U1 nRNP, SLE 30 - 50% anti-ribonucleoprotein) Polymyositis and/or Dermatomyositis 20% --------- Scl-70 (antiDNA Scleroderma (diffuse) 20 - 35% topoisomerase) Crest 13% --------- Ariadne-1 Polymyositis and/or Dermatomyositis 20 - 40% --------- Centromere B Scleroderma - Crest variant 80% FASTING Blood BLOOD SPECIMEN / Unknown 04/10/2018 11:21 AM DIRECTOR OF CORPORATE REAL ESTATE 04/10/2018 Narrative Resulting Agency Comment [facility] [address] [facility] [phone] Narendra Spencer MD LAB - SEROLOGY ORD ERABLES Performing Organization Address City/[facility]/ZIP Co de Phone Number [facility] INSURANCE BILL [address] [place] [address] * RHEUMATOID FACTOR BLOOD QUANTITATIVE (04/10/2018 11:21 AM DIRECTOR OF CORPORATE REAL ESTATE) Rheumatoid Factor <10 <15 IU/mL [facility] INSURANCE BILL Comment:FASTING Blood BLOOD SPECIMEN / Unknown 04/10/2018 11:21 AM DIRECTOR OF CORPORATE REAL ESTATE 04/10/2018 Narrative Resulting Agency Comment [address] [phone] Narendra Spencer MD LAB - CHEMISTRY OR DERABLES Performing Organization Address [facility] Co de Phone Number [facility] INSURANCE BILL [address] [place] [address] * EUGENIE BLOOD SCREEN W/REFLEX TITER (04/10/2018 11:21 AM DIRECTOR OF CORPORATE REAL ESTATE) EUGENIE Negative Negative [facility] INSURANCE BILL Comment:FASTING Blood BLOOD SPECIMEN / Unknown 04/10/2018 11:21 AM DIRECTOR OF CORPORATE REAL ESTATE 04/10/2018 Narrative Resulting Agency Comment [address] [phone] Narendra Spencer MD LAB - CHEMISTRY OR DERABLES Performing Organization Address City/[facility]/ZIP Co de Phone Number [facility] INSURANCE BILL [address] [place] [address] * HLA TYPING B27 (04/10/2018 11:21 AM DIRECTOR OF CORPORATE REAL ESTATE) HLA-B27 Negative [facility] Comment: HLA-B*27 Negative B27 allele interpretation for all loci based on IMGT/HLA database version 3.33.0 This test was developed and its performance characteristics determined by [facility]. It has not been cleared or approved by the Food and Drug Administration. [facility] CLIA ID Number [id number] . This test was performed using PCR (Polymerase Chain Reaction)/SSOP (Sequence Specific Oligonucleotide Probes) technique. SBT (Sequence Based Typing) and/or SSP (Sequence Specific Primers) may be used as supplemental methods when necessary. Please contact [facility] Customer Service at if you have any questions. . Director of HLA Laboratory Dr Cameron Martinez, PhD FASTING Blood BLOOD SPECIMEN / Unknown 04/10/2018 11:21 AM DIRECTOR OF CORPORATE REAL ESTATE 04/10/2018 Narrative Resulting Agency Comment [facility] DNA [address] [facility] [phone] Narendra Spencer MD LAB - CHEMISTRY OR DERABLES [facility] INSURANCE BILL [address] [place] [address] * XR LUMBAR SPINE 2 OR 3VW (02/28/2018 12:15 PM DIRECTOR OF CORPORATE REAL ESTATE) Anatomical Region Laterality Modality Spine Radiographic Kerrie ging 02/28/2018 12:4 4 PM DIRECTOR OF CORPORATE REAL ESTATE Impressions 02/28/2018 1:28 PM DIRECTOR OF CORPORATE REAL ESTATE 1. POSTERIOR FUSION L4-5. 2. SCOLIOSIS. 3. DEGENERATIVE CHANGES. Edited by Jackie Neumann on 02/28/2018 12:45 PM Reading Radiologist: Adrian Danielle MD on 02/28/2018 at 1:28 PM Narrative 02/28/2018 1:28 PM DIRECTOR OF CORPORATE REAL ESTATE LUMBAR SPINE 3 VIEWS INDICATION: Low back [...] OUTSIDE IMG IMPORT (12/13/2017 9:48 AM CDT) Esaton Chai [facility] O RDERABLES [facility] [address] [address] * PAIN MANAGEMENT PROCEDURE TIME (09/13/2017 10:28 [...] on how to reach the clinic or school lunch monitor physician at anytime for questions or complaints. [...] PM CDT) 09/05/2013 1:10 PM CDT Narrative [facility] - 09/05/2013 5:01 PM CDT Transthoracic Echocardiogram 2D, M-mode, Doppler, and Color Doppler Patient: JIN GODINEZ MR number: [id number] Height: 70 in Weight: 274.3 lb BSA: 2.39 m Study date: 05-Sep-2013 : 1950 Age: 63 years Gender: Male Race: Allergies: CLINDAMYCIN Referring Physician: Shana Murray DO Integration Aide: Maricarmen Martinez Reading Physician: Shana Murray DO [...] Color Doppler Patient: JIN GODINEZ MR number: [id number] Height: 70 in Weight: 274.3 lb BSA: 2.39 m Study date: 05-Sep-2013 : 1950 Age: 63 years Gender: Male Race: Allergies: CLINDAMYCIN Referring Physician: Shana Murray DO Integration Aide: Maricarmen Martinez Reading Physician: Shana Murray DO [...] Murray DO ECHO ORDERABLES Performing Organization Address City/State/[facility] Co de Phone Number [facility] [address] [place] [address] * [place] MYOCARD PERFUSION SPECT STRESS AND REST (09/05/2013 12:34 PM CDT) Anatomical Region Laterality Modality Chest Nuclear Medicine 09/05/2013 12:0 0 PM CDT Narrative Transcriptions Shana Murray DO - 09/05/2013 2:26 PM CDT [place] [address] Department of Cardiology Stress Test PATIENT NAME: JIN GODINEZ PHYSICIAN: JANIYA KIM MR#: [id number] : 1950 ROOM #: [id number] AGE: CSN: [id number] SEX: M ADMIT: 09/04/2013 DATE OF PROCEDURE: 09/05/2013 INDICATIONS: The patient is a 63-year-old male with shortness of breath and atypicalchest symptoms. No prior history of coronary disease. History of hypertensionand asthma. PERFORMING DOCK LOADER: Easton Hu M.D. PROTOCOL: The patient was [...] Mildly reduced left ventricular systolic function. Ejection akerhyot47%. NAME: JIN GODINEZ DICTATOR: SHANA MURRAY MD DICTATED FOR: /MODL JOB ID: [id number] Department of Cardiology Shana Murray DO NM ORDERABLES * RESPIRATORY VIRUS PANEL BY PCR (09/05/2013 10:36 AM CDT) Adenovirus PCR Not detected Not detected, Invalid, Indeterminate 09/05/2013 3:20 PM CDT [facility] Human Metapneumovirus PCR Not detected Not detected, Invalid, Indeterminate 09/05/2013 3:20 PM CDT [facility] Human Rhinovirus/Entero virus PCR Not detected Not detected, Invalid, Indeterminate 09/05/2013 3:20 PM CDT [facility] Influenza A Non Subtyped PCR Not detected Not detected, Invalid, Indeterminate 09/05/2013 3:20 PM CDT [facility] Influenza A H1 PCR Not detected Not detected, Invalid, Indeterminate 09/05/2013 3:20 PM CDT [facility] Influenza A H3 PCR Not detected Not detected, Invalid, Indeterminate 09/05/2013 3:20 PM CDT [facility] Influenza A H1 2009 PCR Not detected Not detected, Invalid, Indeterminate 09/05/2013 3:20 PM CDT [facility] Influenza B PCR Not detected Not detected, Invalid, Indeterminate 09/05/2013 3:20 PM CDT [facility] Mycoplasma pneumoniae PCR Not detected Not detected, Invalid, Indeterminate 09/05/2013 3:20 PM CDT [facility] Parainfluenza Virus 1 PCR Not detected Not detected, Invalid, Indeterminate 09/05/2013 3:20 PM CDT [facility] Parainfluenza Virus 2 PCR Not detected Not detected, Invalid, Indeterminate 09/05/2013 3:20 PM CDT [facility] Parainfluenza Virus 3 PCR Not detected Not detected, Invalid, Indeterminate 09/05/2013 3:20 PM CDT [facility] Parainfluenza Virus 4 PCR Not detected Not detected, Invalid, Indeterminate 09/05/2013 3:20 PM CDT [facility] Respiratory Syncytial Virus PCR Not detected Not detected, Invalid, Indeterminate 09/05/2013 3:20 PM CDT [facility] Microbiology NASOPHARYNGEAL SWAB / Unknown Collection / Unknown 09/05/2013 10:36 AM CDT 09/05/2013 11:11 AM CDT Isiah Ruiz MD LAB - MICROBIOLOGY O RDERABLES [facility] [address] [place] [address], [facility] * INFLUENZA A+B+RSV PCR PANEL (09/05/2013 10:36 AM CDT) [facility] Influenza A PCR Not Detected Not Detected, Invalid 09/06/2013 5:57 AM CDT [facility] Influenza B PCR Not Detected Not Detected, Invalid 09/06/2013 5:57 AM CDT [facility] RSV PCR Not Detected Not Detected, Invalid 09/06/2013 5:57 AM CDT [facility] Microbiology NASOPHARYNGEAL SWAB / Unknown Collection / Unknown 09/05/2013 10:36 AM CDT 09/05/2013 11:11 AM CDT Isiah Ruiz MD LAB - MICROBIOLOGY O RDERABLES [facility] [address] [place], [address] * CT CHEST WITH CONTRAST (09/05/2013 [...] - 350 mg/dL 09/05/2013 11:56 AM CDT [facility] Comment: IgG 786 650 - 1,600 mg/dL 09/05/2013 11:56 AM T [facility] Comment: IgM 61 50 - 300 mg/dL 09/05/2013 11:56 AM T [facility] Comment: Blood BLOOD SPECIMEN / Unknown 09/05/2013 4:48 AM CDT 09/05/2013 11:27 AM CDT Hammad Bentley MD LAB - CHEMISTRY ORDERABLES Performing Organization Address City/[facility]/ZIP Co de Phone Number [facility] [address] [place] [address] * (ABNORMAL) LIPID PROFILE (09/05/2013 4:48 AM CDT) Cholesterol 252(H) <200 mg/dL 09/05/2013 6:10 AM T [facility] Triglycerides 141 <150 mg/dL 09/05/2013 6:10 AM T [facility] HDL Cholesterol 43 >40 mg/dL 4 6:10 AM T [facility] LDL Calculated 181(H) <130 mg/dL 09/05/2013 6:10 AM T [facility] VLDL Calculated 28 <=30 mg/dL 4 6:10 AM T [facility] Chol HDL Ratio 5.9(H) <4.5 09/05/2013 6:10 AM T [facility] Blood BLOOD SPECIMEN / Unknown Lab Venipuncture / Unknown 09/05/2013 4:48 AM CDT 09/05/2013 5:43 AM CDT Cameron Daley MD LAB - CHEMISTRY ORDE ELIECER Performing Organization Address City/[facility] Co de Phone Number [facility] [address] [place] [address] * C-REACTIVE PROTEIN SENSITIVE (09/04/2013 7:32 PM CDT) C-Reactive Protein High Sensitivity 0.18 <0.30 mg/dL 09/04/2013 8:14 PM T [facility] Blood BLOOD SPECIMEN / Unknown Lab Venipuncture / Unknown 09/04/2013 7:32 PM CDT 09/04/2013 7:39 PM CDT Narrative [facility] - 09/04/2013 8:14 PM [...] Address City/[facility]/ZIP Co de Phone Number [facility] [address] [place] [address] * IGE BLOOD (09/04/2013 7:32 PM CDT) [facility] IgE Total 59.6 <158 IU/mL 09/04/2013 8:20 PM CDT [facility] Blood BLOOD SPECIMEN / Unknown Lab Venipuncture / Unknown 09/04/2013 7:32 PM CDT 09/04/2013 7:39 PM CDT Isiah Ruiz MD LAB - CHEMISTRY DORIAN GONZÁLES Performing Organization Address City/[facility]/ZIP Co de Phone Number [facility] [address] [place] [address] * TROPONIN I (09/04/2013 3:05 PM CDT) Only the most recent of2 resultswithin the time period is included. [facility] Troponin I <0.015 0.000 - 0.049 ng/mL 09/04/2013 4:33 PM CDT [facility] Blood BLOOD SPECIMEN / Unknown Lab Venipuncture / Unknown 09/04/2013 3:05 PM CDT 09/04/2013 3:52 PM CDT Narrative [facility] - 09/04/2013 4:33 PM [...] - CHEMISTRY DORIAN GONZÁLES Performing Organization Address [facility] Co de Phone Number [facility] [address] [place] [address] * D-DIMER (09/04/2013 3:05 PM CDT) D-Dimer 0.33 0 - 0.5 mg/L FEU 09/04/2013 4:31 PM CDT [facility] Blood BLOOD SPECIMEN / Unknown Lab Venipuncture / Unknown 09/04/2013 3:05 PM CDT 09/04/2013 3:52 PM CDT Narrative [facility] - 09/04/2013 4:31 PM [...] - COAGULATION OR DERABLES Performing Organization Address [facility] Co de Phone Number [facility] [address] [place] [address] * XR CHEST PA AND LATERAL (ROUTINE) [...] - 11.4 sec 09/04/2013 12:08 PM CDT [facility] INR 0.99 0.89 - 1.07 09/04/2013 12:08 PM CDT [facility] PTT 29.6 24.0 - 33.0 sec 09/04/2013 12:08 PM CDT [facility] Blood BLOOD SPECIMEN / Unknown 09/04/2013 11:31 AM CDT 09/04/2013 11:46 AM CDT Narrative [facility] - 09/04/2013 12:08 PM CDT Conventional Anticoagulant Therapy INR Reference Ranges: 2.0-3.0 Intensive Anticoagulant Therapy INR Reference Ranges: 2.5-3.5 Janiya MORA LAB - COAGULATION OR DERABLES [facility] [address] [place] [address] * B-TYPE NATRIURETIC PEPTIDE (09/04/2013 11:31 AM CDT) BNP 12 0 - 100 pg/mL 09/04/2013 1:26 PM CDT [facility] Blood BLOOD SPECIMEN / Unknown 09/04/2013 11:31 AM CDT 09/04/2013 11:46 AM CDT Narrative [facility] - 09/04/2013 1:26 PM [...] - CHEMISTRY ORDSilas GONZÁLES Performing Organization Address [facility] Co de Phone Number [facility] [address] [place] [address] * EKG 12-LEAD (09/04/2013 11:25 AM CDT) [facility] Signature Ventricular Rate 78 BPM [facility] Atrial Rate 78 BPM [facility] P-R Interval 158 ms [facility] QRS Duration ms 98 ms [facility] Q-T Interval ms 368 ms [facility] QTC Calculation (Bezet) 419 ms [facility] Calculated P [place] 43 degrees [facility] Calculated R [place] -28 degrees [facility] Calculated T [place] 35 degrees [facility] Interpretation EKG NORMAL SINUS RHYTHM POSSIBLE LEFT ATRIAL ENLARGEMENT INCOMPLETE RIGHT BUNDLE BRANCH BLOCK BORDERLINE ECG NO PREVIOUS ECGS AVAILABLE Confirmed by MD ELSI, ALANIS Worthington ([id number]) on 09/05/2013 7:19:44 AM [facility] 09/04/2013 11:2 5 AM CDT 09/05/2013 7:19 AM CDT Narrative [facility] - 09/05/2013 6:19 AM CDT Procedure Note Document, Scanned - 09/04/2013 3:57 PM CDT Transcriptions Document, Scanned - 09/05/2013 7:20 AM CDT Janiya MORA ECG ORDERABLES Performing Organization Address [facility] Co de Phone Number [facility] * ENDOSCOPY, COLON, SCREENING (01/31/2012 1:26 PM DIRECTOR OF CORPORATE REAL ESTATE) Narrative Transcriptions Amaury Noyola MD - 01/31/2012 1:26 PM CST Amaury Noyola MD GI PROCEDURE ORDERAB LES [facility] ENDOSCOPY * GROSS + MICRO EXAM (01/31/2012 1:00 PM DIRECTOR OF CORPORATE REAL ESTATE) Only the most recent of2 resultswithin the [...] colon, polyp, biopsy -- Hyperplastic polyp MM/na Outreach And Education Social Worker na Pathologist Tammie Chandler MD CPT code 89930 Performed By [facility], [address] [place] [address] MISCELLANEOUS SAMPLES / Unknown 01/31/2012 1:00 PM DIRECTOR OF CORPORATE REAL ESTATE 01/31/2012 3:42 PM DIRECTOR OF CORPORATE REAL ESTATE Historical Provider LAB - PATHOLOGY/C YTOLOGY ORDERABLES Care Teams Securities Adviser Relationship Specialty Start Date End Date Michael Hussein MD [address] [place] [address] PCP - General Internal Medicine 06/04/21
--- OUTSIDE RECORDS SUMMARY | 2024-06-04 07:27 | XMS_ITS | Referral Summary ---
Author Organization [facility] Address [address] [place] [address] Care Team Providers Care Creative Writing Professor Name Role Phone Michael Hussein MD Primary Care Provider [phone] Source Comments [facility],non-owned Affiliates and Associated Physician Practices is amultiple site organization consisting of ambulatory clinics and hospital sitesin [place] and [place]. This disclosure is being madepursuant to the Care Everywhere program and may not contain all information available regarding this patient. Last updated 17.[facility] Allergies Active Allergy Reactions Criticality Noted Date [...] Active Problems Problem Noted Date Diagnosed Date [facility] (current) use of i 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 Rheumatoid arthritis of [facility] with negative rheumatoid factor 05/26/2017 [...] 12/02/2022 Assessment & Plan (06/04/2021 11:10 AM THERAPEUTIC SALES SPECIALIST): Reviewed potential inherent risks with the continued [...] Description 12/06/2024 9:00 AM CDT Office Visit [facility] - Rheumatology [address], [address] [place] [address] Tuan Poon DO [address] [place] [address] Medical Devices Implanted Type Area Engineer First Assistant Device Identifier Shelf Expiration Date Model / Serial / Lot Graft Bone Alfs + Dbm 5ml Ptty Implanted:Qty: 1 on 12/20/2017 by Easton Paula DO at [facility] N/A: Spine Lumbar [employer] 04/27/2019 [id number] / / [id number] [place] Set Screw Implanted:Qty: 4 on 12/20/2017 by Easton Paula DO at [facility] N/A: Spine Lumbar [employer] [id number] / / 6.5x50mm Screw Implanted:Qty: 2 on 12/20/2017 by Easton Paula DO at [facility] N/A: Spine Lumbar [employer] [id number] / / 6.5x55mm Screw Implanted:Qty: 1 on 12/20/2017 by Easton Paula DO at [facility] N/A: Spine Lumbar [employer] [id number] / / 6.5x60mm Screw Implanted:Qty: 1 on 12/20/2017 by Easton Paula DO at [facility] N/A: Spine Lumbar [employer] [id number] / / 35mm Flavio Implanted:Qty: 1 on 12/20/2017 by Easton Paula DO at [facility] N/A: Spine Lumbar [employer] [id number] / / 40mm Flavio Implanted:Qty: 1 on 12/20/2017 by Easton Paula DO at [facility] N/A: Spine Lumbar [employer] [id number] / / Procedures Procedure Name Priority Date/Time Associated Diagnosis Comments COMPREHENSIVE METABOLIC PANEL 11/05/2020 3:48 PM CDT HEPATITIS SCREEN ACUTE 0 3:20 PM THERAPEUTIC SALES SPECIALIST ENDOSCOPY, COLON, SCREENING Routine 01/31/2012 1:26 PM THERAPEUTIC SALES SPECIALIST from Last 3 Months or Most Recently [...] approximately 13% higher for people identified as -Micronesian. eGFR by MDRD 53(L) > OR = [...] 46 U/L [facility] Comment: Test Performed at: [facility] [address] [place] [address] SHEILA PÉREZ DO,MPH 11/05/2020 3:48 PM CDT 11/05/2020 3:49 PM CDT Narendra Spencer MD LAB - CHEMISTRY OR DERABLES [facility] [address] [place] [address] * HEPATITIS SCREEN ACUTE (02/06/2020 3:20 PM THERAPEUTIC SALES SPECIALIST) Hepatitis A Virus Antibody IgM NON-REACT LINDA NON-REACT LINDA [facility] Comment: For additional information, please refer to http://[employer]fish/faq/BER614 (This link is being provided for informational/ [...] a test for HCV RNA (test code 62140) is suggested. For additional information please refer to http://[employer]/faq/CSV76w5 (This link is being provided for informational/ educational purposes only.) Test Performed at: [facility] [address] [place] [address] SHEILA PÉREZ DO,MPH 02/06/2020 3:20 PM THERAPEUTIC SALES SPECIALIST 02/06/2020 3:21 PM THERAPEUTIC SALES SPECIALIST Narendra Spencer MD LAB - CHEMISTRY OR DERABLES Performing Organization Address [facility] de Phone Number [facility] [address] [place] [address] * ENDOSCOPY, COLON, SCREENING (01/31/2012 1:26 PM THERAPEUTIC SALES SPECIALIST) Narrative Transcriptions Amaury Noyola MD - 01/31/2012 1:26 PM CST Amaury Noyola MD GI PROCEDURE ORDERAB LES Performing Organization Address [facility] Co de Phone Number [facility] ENDOSCOPY from Last 3 Months or Most Recently Relevant to Health Maintenance Advance Directives Documents on File Type Date Recorded Patient Electrical Installation Inspector Expl anation Adv Directive/Living Will/POA 12/20/2017 Adv Directive/Living Will/POA 09/06/2013 10:31 PM * Full Code (Latest Code Status on File) Date Activated Date Inactivated Comments 12/20/2017 5:02 PM 12/22/2017 1:45 PM * Full Code Date Activated Date Inactivated Comments 09/04/2013 2:46 PM 09/05/2013 6:37 PM Care Teams Creative Writing Professor Relationship Specialty Start Date End Date Michael Hussein MD [address] [place] [address] PCP - General Internal Medicine 06/04/21
[2024-06-04 07:52] LABS: Creatinine Urine 307.54 mg/dL (40-278); Ur Ttl Prot Creatinine Ratio 0.09 mg/mg (0-0.20)
[2024-06-04 08:18] LABS: Albumin Level 3.9 g/dL (3.4-5.0); Anion Gap 9 mmol/L (4-12); Blood Urea Nitrogen 25 mg/dL (7-18); Calcium 9.2 mg/dL (8.5-10.1); Carbon Dioxide 30 mmol/L (21-32); Chloride 102 mmol/L (98-108); Estimated Glomerular Filt Rate 45; Glucose 90 mg/dL (70-99); Osmolality Calculated 296 mOsm/kg (285-295); Phosphorus 4.4 mg/dL (2.6-4.7); Potassium 4.1 mmol/L (3.5-5.1); Sodium 141 mmol/L (136-145)
== END 2024-06-04 07:23 | disposition home or self-care (01) ==
LOC: CHSLAB 07:23
PROVIDERS: PCP Internal Medicine; Visit Provider Internal Medicine Nephrology
DX: I12.9 Hypertensive chronic kidney disease with stage 1 through stage 4 chronic kidney disease, or unspecified chronic kidney disease (principal); N18.31 Chronic kidney disease, stage 3a
CPT/HCPCS: 36415; 80069; 82570; 84156

== ENCOUNTER 2024-06-08 13:03 | Outpatient (CLI) | payer MEDICARE, SELFPAY ==
[2024-06-08 13:09] VITALS: BMI 29.0
--- OUTSIDE RECORDS SUMMARY | 2024-06-08 13:12 | XMS_ITS | Clinical Summary ---
Author Organization [facility] Address [address] [place] [address] Care Team Providers Care Tool Builder Name Role Phone Unavailable Primary Care Provider [...]
--- OUTSIDE RECORDS SUMMARY | 2024-06-08 13:12 | XMS_ITS | Patient Health Record ---
Author Organization [facility] Address [address] [facility] [address] [place], [place] [address] Care Team Providers Care Resource Manager Name Role Phone Ronald Cristobal Unavailable [phone] Migration, Provider Unavailable Unavailable Allergies Allergen (clinical [...] review and pick correct strength-formula tion from [employer]an options. If intended option is not shown, [...] Status Risk Notes Problem Acute otitis externa (15628170) ACUTE OTITIS EXTERNA NEC (380.22) Active confirmed lt Problem Chronic infection of sinus (53738260) Chronic infection of sinus NOS (473.9) Active confirmed Problem Otalgia NOS (388.70) Active confirmed lt Encounters Encounter Location Date Provider Diagnosis [facility] [address] [facility] [address] [place], [place] [id number] 03/10/2024 Provider Migration ACUTE OTITIS EXTERNA NEC 380.22 Assessments Encounter Date Diagnosis (ICD Code) Assessment Notes Treatment Notes Treatment Clinical Notes Section Notes 03/10/2024 ACUTE OTITIS EXTERNA NEC (ICD9-CM - 380.22) lt Plan Of Treatment No Information Insurance Providers Payer Name Payer Address Payer Phone Subscriber Number Group Number Insured Name Patient Relationship to Insured Coverage Start Date Coverage End Date [facility]e [facility] [address] [place] [address] [id number] Brian Abarca Self - patient is the [...]
--- OUTSIDE RECORDS SUMMARY | 2024-06-08 13:12 | XMS_ITS ---
Author Organization [facility] Address [address] [facility] [address] [place], [place] [address] Care Team Providers Care Battery Stacker Name Role Phone Ronald Cristobal Unavailable [phone] Migration, Provider Unavailable Unavailable Allergies Allergen (clinical drug ingredient) Drug/Non Drug Allergy documented on EMR Reaction Allergy Type Onset Date Status HYDROCODONE CP (uncoded) Unknown Allergy Active amoxicillin / clavulanate Augmentin Unknown Drug Allergy Active clindamycin Clindamycin Unknown Drug Allergy Act maritza REASON FOR VISIT [facility] Conversion Encounter Medications Medication SIG (Take, Route, [...] review and pick correct strength-formula tion from [employer] options. If intended option is not shown, [...] Location Date Provider Diagnosis [facility] [place] [address] [facility] [address] [place], [place] [id number] 03/10/2024 Provider Migration ACUTE OTITIS EXTERNA NEC [...] Progress Notes * GODINEZLebronningDOB:1950 (74 yo M)Acc No.[id number]:03/10/2024 Patient: Brian MOSELEY Provider: Veronica claire Migration :1950 A ge:74 Y S ex:Male Date:03/10/2024 Address:[address] [place] [address] Subjective: * Chief Complaints: * 1 . Multum To Med[facility]pan Conversion Encounter. * Medical History: * Medications: T aking Amoxicillin 500 MG Capsule 1 cap(s) orally 3 times a day , Taking oxyCODONE HCl 7.5 MG TABLET 1 TAB(S) ORALLY EVERY 6 HOURS , Notes to Pharmacist: *Please review and pick correct strength-formulation from [employer] options. If intended option is not shown, [...] Electronic signature of Prov ider Migration on 06/08/2024 at 01:12 PM CDT Sign off status: Pending * Provider: Veronica claire Migration Date: 05/11/2023 Generated for Margie hess/Radha/Traitting on: 06/08/2024 01:12 PM CDT
--- OUTSIDE RECORDS SUMMARY | 2024-06-08 13:12 | XMS_ITS | Clinical Summary ---
Author Organization [facility] [address] [facility] Address [address] [place] [address] Care Team Providers Care Reduction Furnace Operator Name Role Phone Stephan Tomas DO Primary Care Provider [phone] Social History Tobacco Use Types Packs/Day Years [...] 2027 Insurance MEDICARE PART A AND B [place] [id number] Care Teams Reduction Furnace Operator Relationship Specialty Start Date End Date Stephan Tomas DO [address] [place] [address] PCP - General Family Practice 09/25/18
--- OUTSIDE RECORDS SUMMARY | 2024-06-08 13:13 | XMS_ITS | Patient Health Summary ---
Author Organization [facility] Address [address] [place] [address] Care Team Providers Care Fireman Helper Name Role Phone Michael Hussein MD Primary Care Provider [phone] Note from [facility],non-owned Affiliates and Associated Physician Practices is amultiple site organization consisting of ambulatory clinics and hospital sitesin [place], [place], [place] and [place]. This disclosure is being madepursuant to the Care Everywhere program and may not contain all information available regarding this patient. Last updated 17.[facility] Allergies * Bupropion(Shortness of Breath,Swelling) -High Criticality [...] Problems Problem Noted Date Diagnosed Date intermediate (current) use of i mmunosuppressive biologic (Orencia) [...] AM CDT Medical Devices Implanted Type Area Broodmare Barn Groom Device Identifier Shelf Expiration Date Model / Serial / Lot Graft Bone Alfs + Dbm 5ml Ptty Implanted:Qty: 1 on 12/20/2017 by Easton Paula DO at [facility] N/A: Spine Lumbar [employer] 04/27/2019 [id number] / / [id number] [place] Set Screw Implanted:Qty: 4 on 12/20/2017 by Easton Paula DO at [facility] N/A: Spine Lumbar [employer] [id number] / / 6.5x50mm Screw Implanted:Qty: 2 on 12/20/2017 by Easton Paula DO at [facility] N/A: Spine Lumbar [employer] [id number] / / 6.5x55mm Screw Implanted:Qty: 1 on 12/20/2017 by Easton Paula DO at [facility] N/A: Spine Lumbar [employer] [id number] / / 6.5x60mm Screw Implanted:Qty: 1 on 12/20/2017 by Easton Paula DO at [facility] N/A: Spine Lumbar [employer] [id number] / / 35mm Flavio Implanted:Qty: 1 on 12/20/2017 by Easton Paula DO at [facility] N/A: Spine Lumbar [employer] [id number] / / 40mm Flavio Implanted:Qty: 1 on 12/20/2017 by Easton Paula DO at [facility] N/A: Spine Lumbar [employer] [id number] / / Procedures * LAB MISC TEST(Performed [...] for Sinusitis, unspecified chronicity, unspecified location * [place] NASAL ENDOSCOPY,DX(Performed 04/04/2019) Performed for Sinusitis, unspecified [...] VECTRA DA DISEASE ACTIVITY (06/04/2022 11:36 AM PAY AGENT) Vectra Score 13 [facility] INSURANCE BILL Comment: [...] developed and its performance characteristics determined by [facility]. It has not been cleared or approved by the Food and Drug Administration. (C)2020 [employer](R) [employer]. All Rights Reserved. This document contains private and confidential health information protected by state and federal law. If you have received this document in error please call [phone]. V.1.12-16 BEBE Result 1.8 ug/mL [facility] INSURANCE [...] established from 325,781 patient samples tested at [facility]. RA Percentile: Subject's biomarker level [...] BLOOD SPECIMEN / Unknown 06/04/2022 11:36 AM PAY AGENT 06/04/2022 Narrative Resulting Agency Comment Lab Testing performed at: [facility] [address] [place] [address] [phone] Tuan Poon DO LAB - SEROLOGY ORDER JACQUIE Performing Organization Address City/[facility] Co de Phone Number [facility] INSURANCE BILL [address] [place] [address] * SED RATE AUTO (ESR) (06/04/2022 11:36 AM PAY AGENT) Only the most recent of5 resultswithin the time period is included. Erythrocyte Sedimentation Rate Westergren 2 0 - 30 mm/hr [facility] INSURANCE BILL Comment:FASTING Blood BLOOD SPECIMEN / Unknown 06/04/2022 11:36 AM PAY AGENT 06/04/2022 Narrative Resulting Agency Comment Lab Testing performed at: [facility] [place] [address] [facility] [id number] Tuan Poon DO LAB - HEMATOLOGY ORD ERABLES Performing Organization Address [facility] de Phone Number [facility] [address] [place] [address] * LAB (05/26/2022) Only the most recent of8 resultswithin the time period is included. Scanned Document SCANNING ONLY * BETA-2 GLYCOPROTEIN 1 ANTIBODY IGG (05/18/2021 2:57 PM PAY AGENT) Beta-2 Glycoprotein I Antibody IgG <2.0 U/mL [...] aging. For additional information, please refer to http://education.Mixaloo/faq/YJS287 (This link is being provided for informational/ educational purposes only.) Test Performed at: [facility] [address] [address] MARY DRAPER MD 05/18/2021 2:57 PM PAY AGENT 05/18/2021 3:01 PM PAY AGENT Tuan Poon DO LAB - SEROLOGY ORDER JACQUIE Performing Organization Address City/State/[facility] Co de Phone Number [facility] [address] [place] [address] * BETA-2 GLYCOPROTEIN 1 ANTIBODY IGM (05/18/2021 2:57 PM PAY AGENT) Beta-2 Glycoprotein I Antibody IgM <2.0 U/mL [...] aging. For additional information, please refer to http://Bibulu.Mixaloo/faq/JLQ009 (This link is being provided for informational/ educational purposes only.) Test Performed at: [facility] [address] [address] [address] MARY DRAPER MD 05/18/2021 2:57 PM PAY AGENT 05/18/2021 3:01 PM PAY AGENT Tuan Poon DO LAB - SEROLOGY ORDER JACQUIE Performing Organization Address City/State/[facility] Co de Phone Number [facility] [address] [place] [address] * CARDIOLIPIN ANTIBODY IGM (05/18/2021 2:57 PM PAY AGENT) [facility] Cardiolipin Antibody IgM <2.0 MPL-U/mL [facility] Comment: Value Interpretation ----- < 20.0 Antibody [...] aging. For additional information, please refer to http://Bibulu.Mixaloo/faq/ZBZ024 (This link is being provided for informational/ educational purposes only.) Test Performed at: [facility] [place] [address] [place] [address] MARY DRAPER MD 05/18/2021 2:57 PM PAY AGENT 05/18/2021 3:01 PM PAY AGENT Tuanrandall Poon LAB - SEROLOGY ORDER JACQUIE Performing Organization Address [facility] de Phone Number [facility] [address] [place] [address] * CARDIOLIPIN ANTIBODY IGG (05/18/2021 2:57 PM PAY AGENT) Pathologist [facility] Cardiolipin Antibody IgG <2.0 GPL-U/mL [facility] Comment: Value Interpretation ----- < 20.0 [...] aging. For additional information, please refer to http://education.Mixaloo/faq/OXI511 (This link is being provided for informational/ educational purposes only.) Test Performed at: [facility] [place] [address] [place] [address] MARY DRAPER MD 05/18/2021 2:57 PM PAY AGENT 05/18/2021 3:01 PM PAY AGENT Tuan Cleve LAB - SEROLOGY ORDER JACQUIE Performing Organization Address [facility]/[place] [address] * LUPUS ANTICOAGULANT PANEL W RFLX (05/18/2021 2:57 PM PAY AGENT) Lupus Anticoagulant NOT DETECTED [facility] Comment: A Lupus Anticoagulant is not detected. For more information on this test, go to: http://Bibulu.Mixaloo/faq/DHO42p2 (This link is being provided for informational/ educational purposes only.) This interpretation is based on the following test results: PTT LA Screen 36 < OR = 40 sec [facility] dRVVT Screen 40 < OR = 45 sec [facility] Comment: Test Performed at: [facility] [address] [address] MARY DRAPER MD 05/18/2021 2:57 PM PAY AGENT 05/18/2021 3:01 PM PAY AGENT Tuan Poon DO LAB - HEMATOLOGY ORD ERABLES Performing Organization Address [facility] [place] [address] * (ABNORMAL) TSH (05/18/2021 2:57 PM PAY AGENT) Only the most recent of2 resultswithin the time period is included. Pathologist [facility] TSH 4.95(H) 0.40 - 4.50 mIU/L [facility] Comment: Test Performed at: [facility] [place] [address] [place] [address] SHEILA PÉREZ DO,MPH 05/18/2021 2:57 PM PAY AGENT 05/18/2021 3:01 PM PAY AGENT Tuan Poon DO LAB - CHEMISTRY ORDE RABLES Performing Organization Address [facility] [place] [address] * T4 FREE (05/18/2021 2:57 PM PAY AGENT) Pathologist [facility] T4 Free 1.0 0.8 - 1.8 ng/dL [facility] Comment: Test Performed at: [facility] [address] SHEILA PÉREZ DO,MPH 05/18/2021 2:57 PM PAY AGENT 05/18/2021 3:01 PM PAY AGENT Tuan Poon DO LAB - CHEMISTRY DORIAN GONZÁLES Performing Organization Address [facility] de Phone Number [facility] [address] [place] [address] * C-REACTIVE PROTEIN (11/05/2020 3:48 PM CDT) Only the most recent of2 resultswithin the time period is included. [facility] C-Reactive Protein 0.3 <8.0 mg/L [facility] Comment: Test Performed at: [facility] [place] [address] SHEILA PÉREZ DO,MPH 11/05/2020 3:48 PM CDT 11/05/2020 3:49 PM CDT Narendra Spencer MD LAB - CHEMISTRY OR DERABLES Performing Organization Address [facility] de Phone Number [facility] [id number] [place] [address] * (ABNORMAL) CYCLIC CITRULLINATED PEPTIDE(CCP) AB IGG (11/05/2020 3:48 PM CDT) [facility] Cyclic Citrullinated Peptide Antibody IgG 45(H) UNITS [facility] Comment: Reference Range Negative: <20 Weak Positive: 20-39 Moderate Positive: 40-59 Strong Positive: >59 Test Performed at: [facility] [address] SHEILA PÉREZ DO,MPH 11/05/2020 3:48 PM CDT 11/05/2020 3:49 PM CDT Narendra Spencer MD LAB - CHEMISTRY OR DERABLES [facility] [address] [place] [address] * (ABNORMAL) CBC WITH DIFFERENTIAL (11/05/2020 3:48 PM CDT) Only the most recent of5 resultswithin the time period is included. [facility] White Blood Cell Count 6.5 3.8 - [...] 0.3 % [facility] Comment: Test Performed at: [facility] [address] [place] [address] SHEILA PÉREZ DO,MPH 11/05/2020 3:48 PM CDT 11/05/2020 3:49 PM CDT Narendra Spencer MD LAB - HEMATOLOGY O RDERABLES [facility] [address] [place] [address] * (ABNORMAL) COMPREHENSIVE METABOLIC PANEL (11/05/2020 3:48 PM CDT) Only the most recent of5 resultswithin the time period is included. [facility] Glucose 99 65 - 99 mg/dL [facility] Comment: Fasting reference interval BUN 32(H) 7 - 25 mg/dL [facility] Creatinine 1.36(H) 0.70 - 1.25 mg/dL [facility] Comment: For patients >49 years of age, the reference limit for Creatinine is approximately 13% higher for people identified as -Spanish. eGFR by MDRD 53(L) > OR = [...] 46 U/L [facility] Comment: Test Performed at: [facility] [address] SHEILA PÉREZ DO,MPH 11/05/2020 3:48 PM CDT 11/05/2020 3:49 PM CDT Narendra Spencer MD LAB - CHEMISTRY OR DERABLES [facility] [address] [place] [address] * CT ABDOMEN PELVIS OUTSIDE (06/24/2020) Anatomical Region Laterality Modality Other Narendra Spencer MD IMAGING * MRI TOTAL SPINE OUTSIDE (06/07/2020) Anatomical Region Laterality Modality Other Narendra Spencer MD IMAGING * MRI CERVICAL SPINE OUTSIDE (03/19/2020) Anatomical Region Laterality Modality Other Narendra Spencer MD IMAGING * QUANTIFERON-TB GOLD PLUS 1-TUBE (02/06/2020 3:20 PM PAY AGENT) Pathologist [facility] QuantiFERON TB Gold Plus NEGATIVE NEGATIVE [facility] [...] T-lymphocytes. For additional information, please refer to https://Bibulu.Mixaloo/faq/URG111 (This link is being provided for informational/ educational purposes only.) Test Performed at: [facility] [place] [address] [place] [address] SHEILA PÉREZ DO,MPH 02/06/2020 3:20 PM PAY AGENT 02/06/2020 3:21 PM PAY AGENT Narendra Spencer MD LAB - CHEMISTRY OR DERABLES [facility] [address] [place] [address] * HEPATITIS SCREEN ACUTE (02/06/2020 3:20 PM PAY AGENT) Pathologist [facility] Hepatitis A Virus Antibody IgM NON-REACT LINDA NON-REACT LINDA [facility] Comment: For additional information, please refer to http://Bibulu.Mixaloo/faq/PSA015 (This link is being provided for informational/ [...] a test for HCV RNA (test code 89363) is suggested. For additional information please refer to http://education.Mixaloo/faq/KGL62i1 (This link is being provided for informational/ educational purposes only.) Test Performed at: [facility] [address] [place] [address] SHEILA PÉREZ DO,MPH 02/06/2020 3:20 PM PAY AGENT 02/06/2020 3:21 PM PAY AGENT Narendra Spencer MD LAB - CHEMISTRY OR DERABLES Performing Organization Address City/State/[facility] Co de Phone Number [facility] [address] [place] [address] * CT SINUS WO CONTRAST (04/27/2019 9:45 AM PAY AGENT) Anatomical Region Laterality Modality Head Computed Tomogra phy 04/27/2019 9:49 AM PAY AGENT Impressions 04/27/2019 12:25 PM PAY AGENT IMPRESSION: No CT evidence of sinusitis. Dictated by Cristobal Elliott M.D. (residential finish carpenter). I, Dr. JAYDA PAN have personally reviewed and interpreted this examination/study. This report was electronically signed by JAYDA PAN on 04/27/2019 12:25 PM . Narrative 04/27/2019 12:25 PM PAY AGENT EXAMINATION: CT sinus without contrast HISTORY: J32.9: [...] of sinusitis. Dictated by Cristobal Elliott M.D. (residential finish carpenter). I, Dr. JAYDA PAN have personally reviewed and interpreted this examination/study. This report was electronically signed by JAYDA PAN on 04/27/2019 12:25 PM . Estella Yoo MD CT ORDERABLES * [place] NASAL ENDOSCOPY,DX (04/04/2019 3:16 PM PAY AGENT) Narrative Jordan Rincon MD - 04/04/2019 3:16 PM PAY AGENT Jordan Rincon MD 04/04/2019 3:16 PM Procedure: [...] Reactive Non Reactive 07/26/2018 2:09 PM CDT [facility] HBsAg Non Reactive Non Reactive 07/26/2018 2:09 PM CDT [facility] HBc Antibody IgM Non Reactive Non Reactive 07/26/2018 2:09 PM CDT [facility] Blood BLOOD SPECIMEN / Unknown Venipuncture / Unknown 07/26/2018 11:46 AM CDT 07/26/2018 11:57 AM CDT Narendra Spencer MD LAB - CHEMISTRY OR DERABLES [facility] [address] [place] [address] * XR KNEE LEFT 4VW OR MORE [...] AM CDT 07/10/2018 Narrative Resulting Agency Comment [facility] [address] [facility] [id number] Narendra Spencer MD LAB - CHEMISTRY OR DERABLES Performing Organization Address City/[facility] Co de Phone Number [facility] INSURANCE BILL [address] [place] [address] * QUANTIFERON TB-GOLD (07/10/2018 10:14 AM CDT) Pathologist [facility] QuantiFERON Incubation Incubation performed. [facility] INSURANCE BILL [...] Resulting Agency Comment Lab Testing performed at: [facility] [address] [facility] [id number] Narendra Spencer MD LAB - CHEMISTRY OR DERABLES Performing Organization Address City/[facility] Co de Phone Number [facility] INSURANCE BILL [address] [place] [address] * (ABNORMAL) CYCLIC CITRUL PEPTIDE ANTIBODY IGG/IGA (CCP) (04/10/2018 11:21 AM PAY AGENT) Pathologist [facility] CCP Antibodies IgG/IgA 58(H) 0 - 19 units [facility] INSURANCE BILL Comment: Negative <20 Weak positive 20 - 39 Moderate positive 40 - 59 Strong positive >59 FASTING Blood BLOOD SPECIMEN / Unknown 04/10/2018 11:21 AM PAY AGENT 04/10/2018 Narrative Resulting Agency Comment [address] [place] [id number] Narendra Spencer MD LAB - SEROLOGY ORD ERABLES [facility] INSURANCE BILL [address] [place] [address] * EUGENIE PANEL COMPREHENSIVE (04/10/2018 11:21 AM PAY AGENT) Anti-dsDNA Quantitative <1 0 - 9 IU/mL [facility] INSURANCE BILL Comment: Negative <5 Equivocal 5 - 9 Positive >9 LIBRARY CONSULTANT Antibody 0.3 0.0 - 0.9 AI [facility] [...] Sm (anti-Owens) SLE 15 - 30% --------- LIBRARY CONSULTANT Mixed Connective Tissue Disease 95% (U1 nRNP, SLE 30 - 50% anti-ribonucleoprotein) Polymyositis and/or Dermatomyositis 20% --------- Scl-70 (antiDNA Scleroderma (diffuse) 20 - 35% topoisomerase) Crest 13% --------- Ariadne-1 Polymyositis and/or Dermatomyositis 20 - 40% --------- Centromere B Scleroderma - Crest variant 80% FASTING Blood BLOOD SPECIMEN / Unknown 04/10/2018 11:21 AM PAY AGENT 04/10/2018 Narrative Resulting Agency Comment [facility] [address] [facility] [id number] Narendra Spencer MD LAB - SEROLOGY ORD ERABLES Performing Organization Address City/[facility]/ZIP Co de Phone Number [facility] INSURANCE BILL [address] [place] [address] * RHEUMATOID FACTOR BLOOD QUANTITATIVE (04/10/2018 11:21 AM PAY AGENT) Rheumatoid Factor <10 <15 IU/mL [facility] INSURANCE BILL Comment:FASTING Blood BLOOD SPECIMEN / Unknown 04/10/2018 11:21 AM PAY AGENT 04/10/2018 Narrative Resulting Agency Comment [address] [id number] Narendra Spencer MD LAB - CHEMISTRY OR DERABLES Performing Organization Address [facility] Co de Phone Number [facility] INSURANCE BILL [address] [place] [address] * EUGENIE BLOOD SCREEN W/REFLEX TITER (04/10/2018 11:21 AM PAY AGENT) EUGENIE Negative Negative [facility] INSURANCE BILL Comment:FASTING Blood BLOOD SPECIMEN / Unknown 04/10/2018 11:21 AM PAY AGENT 04/10/2018 Narrative Resulting Agency Comment [address] [phone] Narendra Spencer MD LAB - CHEMISTRY OR DERABLES Performing Organization Address City/[facility]/ZIP Co de Phone Number [facility] INSURANCE BILL [address] [place] [address] * HLA TYPING B27 (04/10/2018 11:21 AM PAY AGENT) HLA-B27 Negative [facility] Comment: HLA-B*27 Negative B27 allele interpretation for all loci based on IMGT/HLA database version 3.33.0 This test was developed and its performance characteristics determined by [facility]. It has not been cleared or approved by the Food and Drug Administration. [facility] CLIA ID Number [id number] . This test was performed using PCR (Polymerase Chain Reaction)/SSOP (Sequence Specific Oligonucleotide Probes) technique. SBT (Sequence Based Typing) and/or SSP (Sequence Specific Primers) may be used as supplemental methods when necessary. Please contact [facility] Customer Service at if you have any questions. . Director of [facility] Laboratory Dr Cameron Martinez, PhD FASTING Blood BLOOD SPECIMEN / Unknown 04/10/2018 11:21 AM PAY AGENT 04/10/2018 Narrative Resulting Agency Comment [facility] DNA [address] [facility] [phone] Narendra Spencer MD LAB - CHEMISTRY OR DERABLES [facility] INSURANCE BILL [address] [place] [address] * XR LUMBAR SPINE 2 OR 3VW (02/28/2018 12:15 PM PAY AGENT) Anatomical Region Laterality Modality Spine Radiographic Kerrie ging 02/28/2018 12:4 4 PM PAY AGENT Impressions 02/28/2018 1:28 PM PAY AGENT 1. POSTERIOR FUSION L4-5. 2. SCOLIOSIS. 3. DEGENERATIVE CHANGES. Edited by Jackie Neumann on 02/28/2018 12:45 PM Reading Radiologist: Adrian Danielle MD on 02/28/2018 at 1:28 PM Narrative 02/28/2018 1:28 PM PAY AGENT LUMBAR SPINE 3 VIEWS INDICATION: Low back [...] Easton Chai [facility] O RDERABLES [facility] [address] [address] * PAIN MANAGEMENT PROCEDURE TIME (09/13/2017 10:28 [...] on how to reach the clinic or sales contracts analyst physician at anytime for questions or [...] PM CDT) 09/05/2013 1:10 PM CDT Narrative [facility] - 09/05/2013 5:01 PM CDT Transthoracic Echocardiogram 2D, M-mode, Doppler, and Color Doppler Patient: JIN GODINEZ MR number: [id number] Height: 70 in Weight: 274.3 lb BSA: 2.39 m Study date: 05-Sep-2013 : 1950 Age: 63 years Gender: Male Race: Allergies: CLINDAMYCIN Referring Physician: Shana Murray DO Spindle Plumber: Maricarmen Martinez Reading Physician: Shana Murray DO [...] Color Doppler Patient: JIN GODINEZ MR number: [id number] Height: 70 in Weight: 274.3 lb BSA: 2.39 m Study date: 05-Sep-2013 : 1950 Age: 63 years Gender: Male Race: Allergies: CLINDAMYCIN Referring Physician: Shana Murray DO Spindle Plumber: Maricarmen Martinez Reading Physician: Shana Murray DO [...] Murray DO ECHO ORDERABLES Performing Organization Address City/State/[facility] Co de Phone Number [facility] [address] [place] [address] * SC MYOCARD PERFUSION SPECT STRESS AND REST (09/05/2013 12:34 PM CDT) Anatomical Region Laterality Modality Chest Nuclear Medicine 09/05/2013 12:0 0 PM CDT Narrative Transcriptions Shana Murray DO - 09/05/2013 2:26 PM CDT [place] [address] Department of Cardiology Stress Test PATIENT NAME: JIN GODINEZ PHYSICIAN: JANIYA KIM MR#: [id number] : 1950 ROOM #: [id number] AGE: CSN: [id number] SEX: M ADMIT: 09/04/2013 DATE OF PROCEDURE: 09/05/2013 INDICATIONS: The patient is a 63-year-old male with shortness of breath and atypicalchest symptoms. No prior history of coronary disease. History of hypertensionand asthma. PERFORMING LUMBER STACKER: Easton Hu M.D. PROTOCOL: The patient was [...] Mildly reduced left ventricular systolic function. Ejection [id number]%. NAME: JIN GODINEZ DICTATOR: SHANA MURRAY MD DICTATED FOR: /MODL JOB ID: [id number] Department of Cardiology Shana Murray DO NM ORDERABLES * RESPIRATORY VIRUS PANEL BY PCR (09/05/2013 10:36 AM CDT) Adenovirus PCR Not detected Not detected, Invalid, Indeterminate 09/05/2013 3:20 PM CDT [facility] Human Metapneumovirus PCR Not detected Not detected, Invalid, Indeterminate 09/05/2013 3:20 PM CDT [facility] Human Rhinovirus/Entero virus PCR Not detected Not detected, Invalid, Indeterminate 09/05/2013 3:20 PM CDT [facility] Influenza A Non Subtyped PCR Not detected Not detected, Invalid, Indeterminate 09/05/2013 3:20 PM CDT [facility] Influenza A H1 PCR Not detected Not detected, Invalid, Indeterminate 09/05/2013 3:20 PM CDT [facility] Influenza A H3 PCR Not detected Not detected, Invalid, Indeterminate 09/05/2013 3:20 PM CDT [facility] Influenza A H1 2009 PCR Not detected Not detected, Invalid, Indeterminate 09/05/2013 3:20 PM CDT [facility] Influenza B PCR Not detected Not detected, Invalid, Indeterminate 09/05/2013 3:20 PM CDT [facility] Mycoplasma pneumoniae PCR Not detected Not detected, Invalid, Indeterminate 09/05/2013 3:20 PM CDT [facility] Parainfluenza Virus 1 PCR Not detected Not detected, Invalid, Indeterminate 09/05/2013 3:20 PM CDT [facility] Parainfluenza Virus 2 PCR Not detected Not detected, Invalid, Indeterminate 09/05/2013 3:20 PM CDT [facility] Parainfluenza Virus 3 PCR Not detected Not detected, Invalid, Indeterminate 09/05/2013 3:20 PM CDT [facility] Parainfluenza Virus 4 PCR Not detected Not detected, Invalid, Indeterminate 09/05/2013 3:20 PM CDT [facility] Respiratory Syncytial Virus PCR Not detected Not detected, Invalid, Indeterminate 09/05/2013 3:20 PM CDT [facility] Microbiology NASOPHARYNGEAL SWAB / Unknown Collection / Unknown 09/05/2013 10:36 AM CDT 09/05/2013 11:11 AM CDT Isiah Ruiz MD LAB - MICROBIOLOGY O RDERABLES [facility] [address] [place] [address], [facility] * INFLUENZA A+B+RSV PCR PANEL (09/05/2013 10:36 AM CDT) [facility] Influenza A PCR Not Detected Not Detected, Invalid 09/06/2013 5:57 AM CDT [facility] Influenza B PCR Not Detected Not Detected, Invalid 09/06/2013 5:57 AM CDT [facility] [facility] MICROBIOLOGY RSV PCR Not Detected Not Detected, Invalid 09/06/2013 5:57 AM CDT [facility] MICROBIOLOGY Microbiology NASOPHARYNGEAL SWAB / Unknown Collection / Unknown 09/05/2013 10:36 AM CDT 09/05/2013 11:11 AM CDT Isiah Ruiz MD LAB - MICROBIOLOGY O RDERABLES [facility] MICROBIOLOGY [address] [place], [address] * CT CHEST WITH CONTRAST (09/05/2013 [...] - 350 mg/dL 09/05/2013 11:56 AM CDT [facility] Comment: IgG 786 650 - 1,600 mg/dL 09/05/2013 11:56 AM T [facility] Comment: IgM 61 50 - 300 mg/dL 09/05/2013 11:56 AM T [facility] Comment: Blood BLOOD SPECIMEN / Unknown 09/05/2013 4:48 AM CDT 09/05/2013 11:27 AM CDT Hammad Bentley MD LAB - CHEMISTRY ORDERABLES Performing Organization Address City/[facility]/ZIP Co de Phone Number [facility] [address] [place] [address] * (ABNORMAL) LIPID PROFILE (09/05/2013 4:48 AM CDT) Cholesterol 252(H) <200 mg/dL 09/05/2013 6:10 AM T [facility] Triglycerides 141 <150 mg/dL 09/05/2013 6:10 AM T [facility] HDL Cholesterol 43 >40 mg/dL 4 6:10 AM T [facility] LDL Calculated 181(H) <130 mg/dL 09/05/2013 6:10 AM T [facility] VLDL Calculated 28 <=30 mg/dL 4 6:10 AM T [facility] Chol HDL Ratio 5.9(H) <4.5 09/05/2013 6:10 AM T [facility] Blood BLOOD SPECIMEN / Unknown Lab Venipuncture / Unknown 09/05/2013 4:48 AM CDT 09/05/2013 5:43 AM CDT Cameron Daley MD LAB - CHEMISTRY ORDE ELIECER Performing Organization Address City/[facility] Co de Phone Number [facility] [address] [place] [address] * C-REACTIVE PROTEIN SENSITIVE (09/04/2013 7:32 PM CDT) C-Reactive Protein High Sensitivity 0.18 <0.30 mg/dL 09/04/2013 8:14 PM T [facility] Blood BLOOD SPECIMEN / Unknown Lab Venipuncture / Unknown 09/04/2013 7:32 PM CDT 09/04/2013 7:39 PM CDT Narrative [facility] - 09/04/2013 8:14 PM CDT C-REACTIVE [...] - CHEMISTRY DORIAN GONZÁLES Performing Organization Address City/[facility]/ZIP Co de Phone Number [facility] [address] [place] [address] * IGE BLOOD (09/04/2013 7:32 PM CDT) [facility] IgE Total 59.6 <158 IU/mL 09/04/2013 8:20 PM CDT [facility] Blood BLOOD SPECIMEN / Unknown Lab Venipuncture / Unknown 09/04/2013 7:32 PM CDT 09/04/2013 7:39 PM CDT Isiah Ruiz MD LAB - CHEMISTRY DORIAN GONZÁLES Performing Organization Address City/[facility]/ZIP Co de Phone Number [facility] [address] [place] [address] * TROPONIN I (09/04/2013 3:05 PM CDT) Only the most recent of2 resultswithin the time period is included. [facility] Troponin I <0.015 0.000 - 0.049 ng/mL 09/04/2013 4:33 PM CDT [facility] Blood BLOOD SPECIMEN / Unknown Lab Venipuncture / Unknown 09/04/2013 3:05 PM CDT 09/04/2013 3:52 PM CDT Narrative [facility] - 09/04/2013 4:33 PM CDT Note: [...] - CHEMISTRY DORIAN GONZÁLES Performing Organization Address [facility] Co de Phone Number [facility] [address] [place] [address] * D-DIMER (09/04/2013 3:05 PM CDT) D-Dimer 0.33 0 - 0.5 mg/L FEU 09/04/2013 4:31 PM CDT [facility] Blood BLOOD SPECIMEN / Unknown Lab Venipuncture / Unknown 09/04/2013 3:05 PM CDT 09/04/2013 3:52 PM CDT Narrative [facility] - 09/04/2013 4:31 PM CDT Elevated [...] - COAGULATION OR DERABLES Performing Organization Address [facility] Co de Phone Number [facility] [address] [place] [address] * XR CHEST PA AND LATERAL (ROUTINE) [...] - 11.4 sec 09/04/2013 12:08 PM CDT [facility] INR 0.99 0.89 - 1.07 09/04/2013 12:08 PM CDT [facility] PTT 29.6 24.0 - 33.0 sec 09/04/2013 12:08 PM CDT [facility] Blood BLOOD SPECIMEN / Unknown 09/04/2013 11:31 AM CDT 09/04/2013 11:46 AM CDT Narrative [facility] - 09/04/2013 12:08 PM CDT Conventional Anticoagulant Therapy INR Reference Ranges: 2.0-3.0 Intensive Anticoagulant Therapy INR Reference Ranges: 2.5-3.5 Janiya MORA LAB - COAGULATION OR DERABLES [facility] [address] [place] [address] * B-TYPE NATRIURETIC PEPTIDE (09/04/2013 11:31 AM CDT) BNP 12 0 - 100 pg/mL 09/04/2013 1:26 PM CDT [facility] Blood BLOOD SPECIMEN / Unknown 09/04/2013 11:31 AM CDT 09/04/2013 11:46 AM CDT Narrative [facility] - 09/04/2013 1:26 PM CDT A [...] - CHEMISTRY ORDSilas GONZÁLES Performing Organization Address [facility] Co de Phone Number [facility] [address] [place] [address] * EKG 12-LEAD (09/04/2013 11:25 AM CDT) [facility] Signature Ventricular Rate 78 BPM [facility] Atrial Rate 78 BPM [facility] P-R Interval 158 ms [facility] QRS Duration ms 98 ms [facility] Q-T Interval ms 368 ms [facility] QTC Calculation (Bezet) 419 ms [facility] Calculated P Jupiter 43 degrees [facility] Calculated R Jupiter -28 degrees [facility] Calculated T Jupiter 35 degrees [facility] Interpretation EKG NORMAL SINUS RHYTHM POSSIBLE LEFT ATRIAL ENLARGEMENT INCOMPLETE RIGHT BUNDLE BRANCH BLOCK BORDERLINE ECG NO PREVIOUS ECGS AVAILABLE Confirmed by MD ELSI, ALANIS Worthington ([id number]) on 09/05/2013 7:19:44 AM [facility] 09/04/2013 11:2 5 AM CDT 09/05/2013 7:19 AM CDT Narrative [facility] - 09/05/2013 6:19 AM CDT Procedure Note Document, Scanned - 09/04/2013 3:57 PM CDT Transcriptions Document, Scanned - 09/05/2013 7:20 AM CDT Janiya MORA ECG ORDERABLES Performing Organization Address [facility] Co de Phone Number [facility] * ENDOSCOPY, COLON, SCREENING (01/31/2012 1:26 PM PAY AGENT) Narrative Transcriptions Amaury Noyola MD - 01/31/2012 1:26 PM CST Amaury Noyola MD GI PROCEDURE ORDERAB LES [facility] ENDOSCOPY * GROSS + MICRO EXAM (01/31/2012 1:00 PM PAY AGENT) Only the most recent of2 resultswithin the [...] colon, polyp, biopsy -- Hyperplastic polyp MM/na Bridge Mechanic na Pathologist Tammie Chandler MD CPT code 63580 Performed By [facility] at [facility], [address] [place] [address] MISCELLANEOUS SAMPLES / Unknown 01/31/2012 1:00 PM PAY AGENT 01/31/2012 3:42 PM PAY AGENT Historical Provider LAB - PATHOLOGY/C YTOLOGY ORDERABLES Care Teams Fireman Helper Relationship Specialty Start Date End Date Michael Hussein MD [address] [place] [address] PCP - General Internal Medicine 06/04/21
--- OUTSIDE RECORDS SUMMARY | 2024-06-08 13:13 | XMS_ITS | Clinical Summary ---
Author Organization [facility] Address [address] [place] [address] Care Team Providers Care Sandwich Peddler Name Role Phone Michael Hussein MD Primary Care Provider [phone] Source Comments [facility],non-owned Affiliates and Associated Physician Practices is amultiple site organization consisting of ambulatory clinics and hospital sitesin [place], [place], [place] and [place]. This disclosure is being madepursuant to the Care Everywhere program and may not contain all information available regarding this patient. Last updated 17.[facility] Allergies Active Allergy Reactions Criticality Noted Date [...] Active Problems Problem Noted Date Diagnosed Date [facility] (current) use of i 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 Rheumatoid arthritis of [facility] sites with negative rheumatoid factor 05/26/2017 [...] 12/02/2022 Assessment & Plan (06/04/2021 11:10 AM BUILDING EQUIPMENT OPERATOR): Reviewed potential inherent risks with the continued [...] Description 12/06/2024 9:00 AM CDT Office Visit [facility] - Rheumatology [address], [address] [place] [address] Tuan Poon DO [address] [facility] [address] [place] [address] Health Maintenance Due Date Last [...] complete this topic MENINGOCOCCAL (Group B) VACCINE SHARED DECISION-MAKING Aged Out No longer eligible based on patient's age to complete this topic MENINGOCOCCAL GROUPS A/C/Y/W VACCINE Aged Out No longer eligible based on patient's age to complete this topic Medical Devices Implanted Type Area Boilerhouse Mechanic Device Identifier Shelf Expiration Date Model / Serial / Lot Graft Bone Alfs + Dbm 5ml Ptty Implanted:Qty: 1 on 12/20/2017 by Easton Paula DO at [facility] N/A: Spine Lumbar [employer]ource 04/27/2019 [id number] / / [id number] [place] Set Screw Implanted:Qty: 4 on 12/20/2017 by Easton Paula DO at [facility] N/A: Spine Lumbar Medical [facility] [id number] / / 6.5x50mm Screw Implanted:Qty: 2 on 12/20/2017 by Easton Paula DO at [facility] N/A: Spine Lumbar [employer] [id number] / / 6.5x55mm Screw Implanted:Qty: 1 on 12/20/2017 by Easton Paula DO at [facility] N/A: Spine Lumbar [employer] [id number] / / 6.5x60mm Screw Implanted:Qty: 1 on 12/20/2017 by Easton Paula DO at [facility] N/A: Spine Lumbar [employer] [id number] / / 35mm Flavio Implanted:Qty: 1 on 12/20/2017 by Easton Paula DO at [facility] N/A: Spine Lumbar [employer] [id number] / / 40mm Flavio Implanted:Qty: 1 on 12/20/2017 by Easton Paula DO at [facility] N/A: Spine Lumbar [employer] [id number] / / Procedures Procedure Name Priority Date/Time Associated Diagnosis Comments COMPREHENSIVE METABOLIC PANEL 11/05/2020 3:48 PM CDT HEPATITIS SCREEN ACUTE 0 3:20 PM BUILDING EQUIPMENT OPERATOR ENDOSCOPY, COLON, SCREENING Routine 01/31/2012 1:26 PM BUILDING EQUIPMENT OPERATOR from Last 3 Months or Most Recently [...] approximately 13% higher for people identified as -Palauan. eGFR by MDRD 53(L) > OR = [...] 46 U/L [facility] Comment: Test Performed at: [facility] [address] [place] [address] SHEILA PÉREZ DO,MPH 11/05/2020 3:48 PM CDT 11/05/2020 3:49 PM CDT Narendra Spencer MD LAB - CHEMISTRY OR DERABLES Performing Organization Address City/State/[facility] Co de Phone Number [facility] [address] [place] [address] * HEPATITIS SCREEN ACUTE (02/06/2020 3:20 PM BUILDING EQUIPMENT OPERATOR) Hepatitis A Virus Antibody IgM NON-REACT LINDA NON-REACT LINDA [facility] Comment: For additional information, please refer to http://education.In[employer]/faq/XBN484 (This link is being provided for informational/ [...] a test for HCV RNA (test code 08052) is suggested. For additional information please refer to http://education.YR Free.Konoz/faq/AJI62l2 (This link is being provided for informational/ educational purposes only.) Test Performed at: [facility] [address] [place] [address] SHEILA PÉREZ DO,MPH 02/06/2020 3:20 PM BUILDING EQUIPMENT OPERATOR 02/06/2020 3:21 PM BUILDING EQUIPMENT OPERATOR Narendra Spencer MD LAB - CHEMISTRY OR DERABLES [facility] [address] [place] [address] * ENDOSCOPY, COLON, SCREENING (01/31/2012 1:26 PM BUILDING EQUIPMENT OPERATOR) Narrative Transcriptions Amaury Noyola MD - 01/31/2012 1:26 PM CST Amaury Noyola MD GI PROCEDURE ORDERAB LES [facility] ENDOSCOPY from Last 3 Months or Most Recently Relevant to Health Maintenance Advance Directives Documents on File Type Date Recorded 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
--- OUTSIDE RECORDS SUMMARY | 2024-06-08 13:13 | XMS_ITS | Referral Summary ---
Author Organization [facility] Address [address] [place] [address] Care Team Providers Care Speech Assistant Name Role Phone Michael Hussein MD Primary Care Provider [phone] Source Comments [facility],non-owned Affiliates and Associated Physician Practices is amultiple site organization consisting of ambulatory clinics and hospital sitesin [place], [place], [place] and [place]. This disclosure is being madepursuant to the Care Everywhere program and may not contain all information available regarding this patient. Last updated 17.[facility] Allergies Active Allergy Reactions Criticality Noted Date [...] does offer some benefit. Rheumatoid arthritis of [facility] sites with negative rheumatoid factor 05/26/2017 [...] 12/02/2022 Assessment & Plan (06/04/2021 11:10 AM TINT LAYER): Reviewed potential inherent risks with the continued [...] Description 12/06/2024 9:00 AM CDT Office Visit [facility] - Rheumatology [address], [address] [place] [address] Tuan Poon DO [address] [place] [address] Medical Devices Implanted Type Area Thread Twister Device Identifier Shelf Expiration Date Model / Serial / Lot Graft Bone Alfs + Dbm 5ml Ptty Implanted:Qty: 1 on 12/20/2017 by Easton Paula DO at [facility] N/A: Spine Lumbar [employer] 04/27/2019 [id number] / / [id number] [place] [employer] Set Screw Implanted:Qty: 4 on 12/20/2017 by Easton Paula DO at [facility] N/A: Spine Lumbar [employer] [id number] / / 6.5x50mm Screw Implanted:Qty: 2 on 12/20/2017 by Easton Paula DO at [facility] N/A: Spine Lumbar [employer] [id number] / / 6.5x55mm Screw Implanted:Qty: 1 on 12/20/2017 by Easton Paula DO at [facility] N/A: Spine Lumbar [employer] [id number] / / 6.5x60mm Screw Implanted:Qty: 1 on 12/20/2017 by Easton Paula DO at [facility] N/A: Spine Lumbar [employer] [id number] / / 35mm Flavio Implanted:Qty: 1 on 12/20/2017 by Easton Paula DO at [facility] N/A: Spine Lumbar [employer] [id number] / / 40mm Flavio Implanted:Qty: 1 on 12/20/2017 by Easton Paula DO at [facility] N/A: Spine Lumbar [employer] [id number] / / Procedures Procedure Name Priority Date/Time Associated Diagnosis Comments COMPREHENSIVE METABOLIC PANEL 11/05/2020 3:48 PM CDT HEPATITIS SCREEN ACUTE 0 3:20 PM TINT LAYER ENDOSCOPY, COLON, SCREENING Routine 01/31/2012 1:26 PM TINT LAYER from Last 3 Months or Most Recently [...] approximately 13% higher for people identified as -M[place]ese. eGFR by MDRD 53(L) > OR = [...] 46 U/L [facility] Comment: Test Performed at: [facility] [address] [place] [address] SHEILA PÉREZ DO,MPH 11/05/2020 3:48 PM CDT 11/05/2020 3:49 PM CDT Narendra Spencer MD LAB - CHEMISTRY OR DERABLES [facility] [address] [place] [address] * HEPATITIS SCREEN ACUTE (02/06/2020 3:20 PM TINT LAYER) Hepatitis A Virus Antibody IgM NON-REACT LINDA NON-REACT LINDA [facility] Comment: For additional information, please refer to http://Casinity.Vital Systems/faq/GPM816 (This link is being provided for informational/ [...] a test for HCV RNA (test code 39230) is suggested. For additional information please refer to http://Casinity.Vital Systems/faq/UDR17h4 (This link is being provided for informational/ educational purposes only.) Test Performed at: [facility] [address] [place] [address] SHEILA PÉREZ DO,MPH 02/06/2020 3:20 PM TINT LAYER 02/06/2020 3:21 PM TINT LAYER Narendra Spencer MD LAB - CHEMISTRY OR DERABLES Performing Organization Address [facility] de Phone Number [facility] [address] [place] [address] * ENDOSCOPY, COLON, SCREENING (01/31/2012 1:26 PM TINT LAYER) Narrative Transcriptions Amaury Noyola MD - 01/31/2012 1:26 PM CST Amaury Noyola MD GI PROCEDURE ORDERAB LES Performing Organization Address [facility] Co de Phone Number [facility] ENDOSCOPY from Last 3 Months or Most Recently Relevant to Health Maintenance Advance Directives Documents on File Type Date Recorded Patient Steward/Stewardess Night Expl anation Adv Directive/Living Will/POA 12/20/2017 Adv Directive/Living Will/POA 09/06/2013 10:31 PM * Full Code (Latest Code Status on File) Date Activated Date Inactivated Comments 12/20/2017 5:02 PM 12/22/2017 1:45 PM * Full Code Date Activated Date Inactivated Comments 09/04/2013 2:46 PM 09/05/2013 6:37 PM Care Teams Speech Assistant Relationship Specialty Start Date End Date Michael Hussein MD [address] [place] [address] PCP - General Internal Medicine 06/04/21
[2024-06-08] MEDS: SODIUM CHLORIDE 0.9% IVPB (13:30)
[2024-06-08] MEDS: ABATACEPT IVPB (13:30)
[2024-06-08] MEDS: MALTOSE IVPB (13:30)
[2024-06-08 13:31] VITALS: BP 101/69; PULSE 75; RESP 14; TEMP 36.3; O2SAT 97
[2024-06-08 14:13] VITALS: BP 101/65; PULSE 69; RESP 14; O2SAT 98
--- NOTE | 2024-06-08 14:16 | PC.NURSE ---
Patient here for monthly Orencia infusion. Education given. No concerns voiced. Infusion administered. SEE MAR/patient care notes. Tolerated well.
== END 2024-06-08 13:04 | disposition home or self-care (01) ==
PROVIDERS: PCP Internal Medicine; Visit Provider Internal Medicine Rheumatology
DX: M06.9 Rheumatoid arthritis, unspecified (principal)
CPT/HCPCS: 96365; J0129

== ENCOUNTER 2024-07-10 12:52 | Outpatient (CLI) | payer MEDICARE, SELFPAY ==
[2024-07-10 13:23] VITALS: BP 116/72; PULSE 78; RESP 16; TEMP 36.4; O2SAT 95; BMI 30.2
[2024-07-10] MEDS: MALTOSE IVPB (13:45)
[2024-07-10] MEDS: SODIUM CHLORIDE 0.9% IVPB (13:45)
[2024-07-10] MEDS: ABATACEPT IVPB (13:45)
--- OUTSIDE RECORDS SUMMARY | 2024-07-10 13:45 | XMS_ITS ---
Author Organization [facility] Address [address] [facility] [address] [place], [place] [address] Care Team Providers Care Directory Compiler Name Role Phone Ronald Cristobal Unavailable [phone] Migration, Provider Unavailable Unavailable Allergies Allergen (clinical drug ingredient) Drug/Non Drug Allergy documented on EMR Reaction Allergy Type Onset Date Status HYDROCODONE CP (uncoded) Unknown Allergy Active amoxicillin / clavulanate Augmentin Unknown Drug Allergy Active clindamycin Clindamycin Unknown Drug Allergy Act maritza REASON FOR VISIT [facility] Conversion Encounter Medications Medication SIG (Take, [...] review and pick correct strength-formula tion from Wave Technology Solutionsspan options. If intended option is not shown, [...] Location Date Provider Diagnosis [facility] [place] [address] [address] [facility] [address] [place], [place] [address] 03/10/2024 Provider Migration ACUTE OTITIS EXTERNA NEC [...] Progress Notes * GODINEZLebronningDOB:1950 (74 yo M)Acc No.[id number]:03/10/2024 Patient: Brian MOSELEY Provider: Veronica claire Migration :1950 A ge:74 Y S ex:Male Date:03/10/2024 Address:[address] [place] [address] Subjective: * Chief Complaints: * 1 . Multum To Medispan Conversion Encounter. * Medical History: * Medications: T aking Amoxicillin 500 MG Capsule 1 cap(s) orally 3 times a day , Taking oxyCODONE HCl 7.5 MG TABLET 1 TAB(S) ORALLY EVERY 6 HOURS , Notes to Pharmacist: *Please review and pick correct strength-formulation from Wave Technology Solutionsspan options. If intended option is not shown, [...] Electronic signature of Prov ider Migration on 07/10/2024 at 01:45 PM CDT Sign off status: Pending * Provider: Veronica claire Migration Date: 1 05/11/2023 Generated for Margie hess/Radha/Traitting on: 07/10/2024 01:45 PM CDT
--- OUTSIDE RECORDS SUMMARY | 2024-07-10 13:45 | XMS_ITS | Clinical Summary ---
Author Organization [facility] Address [address] [place] [address] Care Team Providers Care Accounts Receivable Coordinator Name Role Phone Michael Hussein MD Primary Care Provider [phone] Source Comments [facility],non-owned Affiliates and Associated Physician Practices is amultiple site organization consisting of ambulatory clinics and hospital sitesin [place], [place], [place] and [place]. This disclosure is being madepursuant to the Care Everywhere program and may not contain all information available regarding this patient. Last updated 17.[facility] Allergies Active Allergy Reactions Criticality Noted Date [...] document. Alwaysverify current medications with the patient. ALPRAZolam (XANAX) 0.5 MG tablet Take 4 (four) tablets by mouth 3 times daily as needed Active losartan (COZAAR) 100 MG tablet Take 1 (one) tablet by mouth once daily Active atorvastatin (LIPITOR) 10 MG tablet Take 1 (one) tablet by mouth at bedtime Active diclofenac sodium (VOLTAREN) 1 % gel every 8 hours 1 Active triamcinolone acetonide (Trianex) 0.05 % ointment Apply to affected area 4 times daily Active Coenzyme Q10 (CO Q 10 PO) Take 200 mg by mouth once daily Active IPRATROPIUM BROMIDE NA Active abatacept (Orencia) IV injectionIndica tions:Rheumatoi d Arthritis 1,000 (one thousand) mg by Intravenous route every 28 days Reasons: Rheumatoid Arthritis 1 Each 11 4 Active Active Problems Problem Noted Date Diagnosed Date 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 Rheumatoid arthritis of [facility] sites with negative rheumatoid factor 05/26/2017 Overview [...] 12/02/2022 Assessment & Plan (06/04/2021 11:10 AM RANGE MOUNTER): Reviewed potential inherent risks with the continued [...] use of this form of treatment. Immunizations Immunization Administration Dates Next Due Covid Pfizer primary [...] at Not on file Legal Sex Male 1:56 PM RANGE MOUNTER Gender Identity Not on file Sexual Orientation Not on file Occupation Industry Job Start Date Job End Date retired Not on file Not on file Not on file Last Filed Vital Signs [...] Description 12/06/2024 9:00 AM CDT Office Visit [facility] - Rheumatology [address], [address] [place] [address] Tuan Poon DO [address] [place] [address] Health Maintenance Due Date Last [...] VACCINE ( - season) 2023 06/19/2020, 05/22/2020 DEPRESSION SCREENING 03/28/2024 INFLUENZA VACCINE (Season Ended) 2024 Respiratory Syncytial Virus (RSV) Vaccine Pt: or [...] this topic Medical Devices Implanted Type Area Waterworks Operator Device Identifier Shelf Expiration Date Model / Serial / Lot Graft Bone Alfs + Dbm 5ml Ptty Implanted:Qty: 1 on 12/20/2017 by Easton Paula DO at [facility] N/A: Spine Lumbar Allosource 04/27/2019 [id number] / / [id number] Darden Set Screw Implanted:Qty: 4 on 12/20/2017 by Easton Paula DO at [facility] N/A: Spine Lumbar [employer] [id number] / / 6.5x50mm Screw Implanted:Qty: 2 on 12/20/2017 by Easton Paula DO at [facility] N/A: Spine Lumbar [employer] [id number] / / 6.5x55mm Screw Implanted:Qty: 1 on 12/20/2017 by Easton Paula DO at [facility] N/A: Spine Lumbar [employer] [id number] / / 6.5x60mm Screw Implanted:Qty: 1 on 12/20/2017 by Easton Paula DO at [facility] N/A: Spine Lumbar [employer] [id number] / / 35mm Flavio Implanted:Qty: 1 on 12/20/2017 by Easton Paula DO at [facility] N/A: Spine Lumbar [employer] [id number] / / 40mm Flavio Implanted:Qty: 1 on 12/20/2017 by Easton Paula DO at [facility] N/A: Spine Lumbar [employer] [id number] / / Procedures Procedure Name Priority Date/Time Associated Diagnosis Comments COMPREHENSIVE METABOLIC PANEL 11/05/2020 3:48 PM CDT HEPATITIS SCREEN ACUTE 0 3:20 PM RANGE MOUNTER ENDOSCOPY, COLON, SCREENING Routine 01/31/2012 1:26 PM RANGE MOUNTER from Last 3 Months or Most Recently [...] approximately 13% higher for people identified as -Mexican. eGFR by MDRD 53(L) > OR = [...] 46 U/L [facility] Comment: Test Performed at: [facility] [id number] [place] [id number] SHEILA PÉREZ DO,MPH 11/05/2020 3:48 PM CDT 11/05/2020 3:49 PM CDT Narendra Spencer MD LAB - CHEMISTRY ORDERABLES Final Result Performing Organization Address City/State/[facility] Co de Phone Number [facility] [address] [place] [address] * HEPATITIS SCREEN ACUTE (02/06/2020 3:20 PM RANGE MOUNTER) Hepatitis A Virus Antibody IgM NON-REACT LINDA NON-REACT LINDA [facility] Comment: For additional information, please refer to http://education.[employer]/faq/OFT535 (This link is being provided for informational/ [...] a test for HCV RNA (test code 81227) is suggested. For additional information please refer to http://education.[employer]/faq/TYR10q3 (This link is being provided for informational/ educational purposes only.) Test Performed at: [facility] [address] [place] [address] SHEILA PÉREZ DO,MPH 02/06/2020 3:20 PM RANGE MOUNTER 02/06/2020 3:21 PM RANGE MOUNTER us Narendra Spencer MD LAB - CHEMISTRY ORDERABLES Final Result Performing Organization Address [facility] Co de Phone Number [facility] [address] [place] [address] * ENDOSCOPY, COLON, SCREENING (01/31/2012 1:26 PM RANGE MOUNTER) Narrative Transcriptions Amaury Noyola MD - 01/31/2012 1:26 PM CST us Amaury Noyola MD GI PROCEDURE ORDERABLES Final Re sult Performing Organization Address City/[facility]/ZIP Co de Phone Number [facility] ENDOSCOPY from Last 3 Months or Most Recently Relevant to Health Maintenance Insurance MEDICARE MEDICARE [facility] MEDICARE [facility] MEDICARE 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
--- OUTSIDE RECORDS SUMMARY | 2024-07-10 13:45 | XMS_ITS | Patient Health Record ---
Author Organization [facility] Address [address] [facility] [address] [place], [place] [address] Care Team Providers Care Farmworker Grain Name Role Phone Ronald Cristobal Unavailable [phone] Migration, Provider Unavailable Unavailable Allergies Allergen (clinical [...] review and pick correct strength-formula tion from mCASHan options. If intended option is not shown, [...] Status Risk Notes Problem Acute otitis externa (37917915) ACUTE OTITIS EXTERNA NEC (380.22) Active confirmed lt Problem Chronic infection of sinus (39341390) Chronic infection of sinus NOS (473.9) Active confirmed Problem Otalgia NOS (388.70) Active confirmed lt Encounters Encounter Location Date Provider Diagnosis [facility] [address] [facility] [address] [place], [place] [id number] 03/10/2024 Provider Migration ACUTE OTITIS EXTERNA NEC 380.22 Assessments Encounter Date Diagnosis (ICD Code) Assessment Notes Treatment Notes Treatment Clinical Notes Section Notes 03/10/2024 ACUTE OTITIS EXTERNA NEC (ICD9-CM - 380.22) lt Plan Of Treatment No Information Insurance Providers Payer Name Payer Address Payer Phone Subscriber Number Group Number Insured Name Patient Relationship to Insured Coverage Start Date Coverage End Date Christiane [facility] [address] [place] [address] [id number] Brian Abarca Self - patient is the [...]
--- OUTSIDE RECORDS SUMMARY | 2024-07-10 13:45 | XMS_ITS | Clinical Summary ---
Author Organization [facility] Address [address] [place] [address] Care Team Providers Care Bellman Name Role Phone Unavailable Primary Care Provider [...] Vaccines (1 of 2) 2002 Pneumococcal Vaccine: 50+ Ye ars (1 of 1 - PCV) 2017 COVID-19 Vaccine ( - 2023-2 5 season) 2023 RSV Immunization or 60+ Years (1 [...]
--- OUTSIDE RECORDS SUMMARY | 2024-07-10 13:45 | XMS_ITS | Clinical Summary ---
Author Organization [email or web address] [address] [facility] Address [address] [place] [address] Care Team Providers Care Motorcycle Mechanic Name Role Phone Stephan Tomas DO Primary Care Provider [phone] Social History Tobacco Use Types Packs/Day Years [...] 2027 Insurance MEDICARE PART A AND B [place] [id number] Care Teams Motorcycle Mechanic Relationship Specialty Start Date End Date Stephan Tomas DO [address] [place] [address] PCP - General Family Practice 09/25/18
[2024-07-10 14:16] VITALS: BP 106/76; PULSE 72; RESP 14; O2SAT 97
--- NOTE | 2024-07-10 14:26 | PC.NURSE ---
Patient here for monthly Orencia infusion. Education given. NO concerns voiced. Infusion administered. SEE MAR/patient care notes. Tolerated well.
== END 2024-07-10 12:53 | disposition home or self-care (01) ==
PROVIDERS: PCP Internal Medicine; Visit Provider Internal Medicine Rheumatology
DX: M06.9 Rheumatoid arthritis, unspecified (principal)
CPT/HCPCS: 96365; J0129

== ENCOUNTER 2024-07-16 12:01 | Outpatient (CLI) | payer MEDICARE, SELFPAY ==
--- NOTE | ~2024-07-16 | XR_ITS ---
CHEST RADIOGRAPH, PA AND LATERAL CLINICAL HISTORY: Cough /LLLcrepts,CHRONIC SOB,?LT SIDE NODULE . COMPARISON: 05/14/2019 TECHNIQUE: PA and lateral views of the chest. FINDINGS The cardiomediastinal silhouette is unremarkable. Multiple subcentimeter calcified granulomas within the bilateral lung hopson. Indeterminate density projecting over the right hemidiaphragm for which cross-sectional imaging (nonc ontrast enhanced CT examination of the chest) is recommended for further evaluation. The remainder of the lungs are clear. IMPRESSION: Indeterminate density projecting over the right hemidiaphragm for which cross-sectional imaging (nonc ontrast enhanced CT examination of the chest) is recommended for further evaluation. Reviewed, dictated and finalized at location A. IMPRESSION: Indeterminate density projecting over the right hemidiaphragm for which cross-s ectional imaging (noncontrast enhanced CT examination of the chest) is recommen ded for further evaluation.
[2024-07-16 12:13] LABS: Hematocrit 43.5 % (37.0-46.0); Hemoglobin 14.1 g/dL (12.4-15.3); Mean Corpuscular HGB Conc 32.4 g/dL (32-36); Mean Corpuscular Hemoglobin 31.4 pg (27.0-31.0); Mean Corpuscular Volume 96.9 fL (78.0-102.0); Mean Platelet Volume 8.4 fl (8.7-11.0); Platelet Count Result 214 K/mm3 (150-420); Red Blood Count 4.49 M/mm3 (4.70-6.10); Red Cell Distribution Width 13.3 % (11.6-14.4); White Blood Count 6.2 K/mm3 (4.8-10.8)
[2024-07-16 12:39] LABS: Strep Group A RT-PCR NOT DETECTED (Negative)
[2024-07-16 12:47] LABS: Anion Gap 6 mmol/L (4-12); Blood Urea Nitrogen 25 mg/dL (7-18); Calcium 8.5 mg/dL (8.5-10.1); Carbon Dioxide 31 mmol/L (21-32); Chloride 106 mmol/L (98-108); Estimated Glomerular Filt Rate 40; Glucose 100 mg/dL (70-99); Osmolality Calculated 300 mOsm/kg (285-295); Potassium 4.6 mmol/L (3.5-5.1); Sodium 143 mmol/L (136-145)
[2024-07-16 12:51] LABS: Influenza A QL RT-PCR Negative (Negative); Influenza B QL RT-PCR Negative (Negative); RSV RNA, RT-PCR Negative (Negative); SARS-CoV-2 RNA PCR Negative (Negative)
--- OUTSIDE RECORDS SUMMARY | 2024-07-16 13:39 | XMS_ITS | Clinical Summary ---
Author Organization [facility] Address [address] [place] [address] Care Team Providers Care Vice President Of Consulting Services Name Role Phone Unavailable Primary Care Provider [...] Td Vaccines ( 1 - Tdap) 1971 Pneumococcal Vaccine: 50+ Ye ars (1 of 1 - PCV) 2002 Zoster Vaccines (1 of 2) 2002 COVID-19 Vaccine ( - 2023-2 5 season) [...]
--- OUTSIDE RECORDS SUMMARY | 2024-07-16 13:40 | XMS_ITS | Clinical Summary ---
Author Organization [employer] [address] [facility] Address [address] [place] [address] Care Team Providers Care Safety Companion Name Role Phone Stephan Tomas DO Primary [...] 2027 Insurance MEDICARE PART A AND B [place] [id number] Care Teams Safety Companion Relationship Specialty Start Date End Date Stephan Tomas DO [address] [place] [address] PCP - General Family Practice 09/25/18
--- OUTSIDE RECORDS SUMMARY | 2024-07-16 13:40 | XMS_ITS | Patient Health Record ---
Author Organization [facility] Address [address] [facility] [address] [place], [place] [address] Care Team Providers Care Nuclear Process Engineer Name Role Phone Ronald Cristobal Unavailable [phone] Migration, Provider Unavailable Unavailable Allergies Allergen (clinical [...] review and pick correct strength-formula tion from DC Devicesan options. If intended option is not shown, [...] Status Risk Notes Problem Acute otitis externa (30106594) ACUTE OTITIS EXTERNA NEC (380.22) Active confirmed lt Problem Chronic infection of sinus (93063995) Chronic infection of sinus NOS (473.9) Active confirmed Problem Otalgia NOS (388.70) Active confirmed lt Encounters Encounter Location Date Provider Diagnosis [facility] [address] [facility] [address] [place], [place] [phone] 03/10/2024 Provider Migration ACUTE OTITIS EXTERNA NEC 380.22 Assessments Encounter Date Diagnosis (ICD Code) Assessment Notes Treatment Notes Treatment Clinical Notes Section Notes 03/10/2024 ACUTE OTITIS EXTERNA NEC (ICD9-CM - 380.22) lt Plan Of Treatment No Information Insurance Providers Payer Name Payer Address Payer Phone Subscriber Number Group Number Insured Name Patient Relationship to Insured Coverage Start Date Coverage End Date Christiane [facility] [address] [place] [address] [id number] Brian Abarca Self - patient is the [...]
--- OUTSIDE RECORDS SUMMARY | 2024-07-16 13:40 | XMS_ITS ---
Author Organization [facility] Address [address] [facility] [address] [place], [place] [address] Care Team Providers Care Senior Functional Analyst Name Role Phone Ronald Cristobal Unavailable [phone] Migration, Provider Unavailable Unavailable Allergies Allergen (clinical drug ingredient) Drug/Non Drug Allergy documented on EMR Reaction Allergy Type Onset Date Status HYDROCODONE CP (uncoded) Unknown Allergy Active amoxicillin / clavulanate Augmentin Unknown Drug Allergy Active clindamycin Clindamycin Unknown Drug Allergy Act maritza REASON FOR VISIT [facility] Conversion Encounter Medications Medication SIG (Take, [...] review and pick correct strength-formula tion from 8020selectspan options. If intended option is not shown, [...] Location Date Provider Diagnosis [facility] [place] [address] [facility] [address] [place], [place] [phone] 03/10/2024 Provider Migration ACUTE OTITIS EXTERNA NEC [...] Progress Notes * GODINEZLebronningDOB:1950 (74 yo M)Acc No.[id number]:03/10/2024 Patient: Brian MOSELEY Provider: Veronica claire Migration :1950 A ge:74 Y S ex:Male Date:03/10/2024 Address:[address] [place] [address] Subjective: * Chief Complaints: * 1 . Multum To Medispan Conversion Encounter. * Medical History: * Medications: T aking Amoxicillin 500 MG Capsule 1 cap(s) orally 3 times a day , Taking oxyCODONE HCl 7.5 MG TABLET 1 TAB(S) ORALLY EVERY 6 HOURS , Notes to Pharmacist: *Please review and pick correct strength-formulation from 8020selectspan options. If intended option is not shown, [...] Electronic signature of Prov ider Migration on 07/16/2024 at 01:40 PM CDT Sign off status: Pending * Provider: Veronica claire Migration Date: 05/11/2023 Generated for Margie hess/Radha/Deenasmitting on: 07/16/2024 01:40 PM CDT
--- OUTSIDE RECORDS SUMMARY | 2024-07-16 13:40 | XMS_ITS | Clinical Summary ---
Author Organization [facility] Address [address] [facility] [place] [address] Care Team Providers Care Fitness Centre Manager Name Role Phone Michael Hussein MD Primary Care Provider [phone] Source Comments [facility],non-owned Affiliates and Associated Physician Practices is amultiple site organization consisting of ambulatory clinics and hospital sitesin [place], [place], [place] and [place]. This disclosure is being madepursuant to the Care Everywhere program and may not contain all information available regarding this patient. Last updated 17.[facility] Allergies Active Allergy Reactions Criticality Noted Date [...] Active Problems Problem Noted Date Diagnosed Date rn med surg (current) use of i 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 Rheumatoid arthritis of [facility] sites with negative rheumatoid factor [...] 12/02/2022 Assessment & Plan (06/04/2021 11:10 AM TEAM PSYCHOLOGIST): Reviewed potential inherent risks with the continued [...] on file Legal Sex Male 1:56 PM TEAM PSYCHOLOGIST Gender Identity Not on file Sexual Orientation [...] Description 12/06/2024 9:00 AM CDT Office Visit [facility] - Rheumatology [address] [facility], [address] [place] [address] Tuan Poon DO [address] [facility] [facility] [facility] [address] [place] [address] Health Maintenance Due Date Last [...] this topic Medical Devices Implanted Type Area Photo Optics Technician Device Identifier Shelf Expiration Date Model / Serial / Lot Graft Bone Alfs + Dbm 5ml Ptty Implanted:Qty: 1 on 12/20/2017 by Easton Paula DO at [facility] N/A: Spine Lumbar [employer]osource 04/27/2019 [id number] / / [id number] [place] Set Screw Implanted:Qty: 4 on 12/20/2017 by Easton Paula DO at [facility] N/A: Spine Lumbar [employer] [id number] / / 6.5x50mm Screw Implanted:Qty: 2 on 12/20/2017 by Easton Paula DO at [facility] N/A: Spine Lumbar [employer] [id number] / / 6.5x55mm Screw Implanted:Qty: 1 on 12/20/2017 by Easton Paula DO at [facility] N/A: Spine Lumbar [employer] [id number] / / 6.5x60mm Screw Implanted:Qty: 1 on 12/20/2017 by Easton Paula DO at [facility] N/A: Spine Lumbar [employer] [id number] / / 35mm Flavio Implanted:Qty: 1 on 12/20/2017 by Easton Paula DO at [facility] N/A: Spine Lumbar [employer] [id number] / / 40mm Flavio Implanted:Qty: 1 on 12/20/2017 by Easton Paula DO at [facility] N/A: Spine Lumbar [employer] [id number] / / Procedures Procedure Name Priority Date/Time Associated Diagnosis Comments COMPREHENSIVE METABOLIC PANEL 11/05/2020 3:48 PM CDT HEPATITIS SCREEN ACUTE 0 3:20 PM TEAM PSYCHOLOGIST ENDOSCOPY, COLON, SCREENING Routine 01/31/2012 1:26 PM TEAM PSYCHOLOGIST from Last 3 Months or Most Recently [...] approximately 13% higher for people identified as -Malawian. eGFR by MDRD 53(L) > OR = [...] 46 U/L [facility] Comment: Test Performed at: [facility] [id number] [place] [address] SHEILA PÉREZ DO,MPH 11/05/2020 3:48 PM CDT 11/05/2020 3:49 PM CDT Narendra Spencer MD LAB - CHEMISTRY ORDERABLES Final Result Performing Organization Address City/State/[facility] Co de Phone Number [facility] [address] [place] [address] * HEPATITIS SCREEN ACUTE (02/06/2020 3:20 PM TEAM PSYCHOLOGIST) Hepatitis A Virus Antibody IgM NON-REACT LINDA NON-REACT LINDA [facility] Comment: For additional information, please refer to http://education.[employer]/faq/BWI024 (This link is being provided for informational/ [...] a test for HCV RNA (test code 66668) is suggested. For additional information please refer to http://education.[employer]/faq/HZP98r9 (This link is being provided for informational/ educational purposes only.) Test Performed at: [facility] [address] [place] [address] SHEILA PÉREZ DO,MPH 02/06/2020 3:20 PM TEAM PSYCHOLOGIST 02/06/2020 3:21 PM TEAM PSYCHOLOGIST us Narendra Spencer MD LAB - CHEMISTRY ORDERABLES Final Result Performing Organization Address [facility] Co de Phone Number [facility] [address] [place] [address] * ENDOSCOPY, COLON, SCREENING (01/31/2012 1:26 PM TEAM PSYCHOLOGIST) Narrative Transcriptions Amaury Noyola MD - 01/31/2012 1:26 PM CST us Amaury Noyola MD GI PROCEDURE ORDERABLES Final Re sult Performing Organization Address City/[facility]/ZIP Co de Phone Number [facility] ENDOSCOPY from Last 3 Months or Most Recently Relevant to Health Maintenance Insurance MEDICARE [facility]IC[facility] MEDICARE [facility] Advance Directives Documents on File Type Date Recorded Patient Church Communications Administrator Expl anation Adv Directive/Living Will/POA 12/20/2017 Adv Directive/Living Will/POA 09/06/2013 10:31 PM * Full Code (Latest Code Status on File) Date Activated Date Inactivated Comments 12/20/2017 5:02 PM 12/22/2017 1:45 PM * Full Code Date Activated Date Inactivated Comments 09/04/2013 2:46 PM 09/05/2013 6:37 PM Care Teams Fitness Centre Manager Relationship Specialty Start Date End Date Michael Hussein MD [address] [place] [address] PCP - General Internal Medicine 06/04/21
== END 2024-07-16 12:02 | disposition home or self-care (01) ==
LOC: CHSLAB 12:03
PROVIDERS: PCP Internal Medicine; Visit Provider Internal Medicine
DX: R05.9 Cough, unspecified (principal); R91.8 Other nonspecific abnormal finding of lung field
CPT/HCPCS: 36415; 71046; 80048; 85027; 87637; 87651

== ENCOUNTER 2024-07-18 14:55 | Outpatient (CLI) | payer MEDICARE, SELFPAY ==
--- NOTE | ~2024-07-18 | CT_ITS ---
CT Scan of the Chest without Contrast: Clinical Indication: Cough Technique: Contiguous sections were acquired throughout the chest without intravenous contrast. Dose reduction technique was used on this scan by utilizing automated exposure control and iterative recon struction technique. The dose-length product (DLP) was 307.15 mGy-cm. Findings: There is no evidence of any significant mediastinal, hilar or axillary lymphadenopathy. The mediastin al soft tissues appear normal. There is no evidence of pleural or pericardial effusion. 8 mm right lower lobe pulmonary nodule present (axial image 57). Focal left basilar scarring present. Images through the upper abdomen reveal no abnormalities. Impression: 8 mm right lower lobe pulmonary nodule. According to Fleischner Society criteria, for a low-risk maurisio ent, recommend follow-up CT scan in 6-12 months, then consider additional 18-[address] For a high- risk patient, follow-up CT scans at both 6-12 months and 18-24 months are recommended. Reviewed, dictated and finalized at [facility]. Impression: 8 mm right lower lobe pulmonary nodule. According to Fleischner Society criteri a, for a low-risk patient, recommend follow-up CT scan in 6-12 months, then con cytology supervisor additional 18-[address] For a high-risk patient, follow-up CT scans at both 6-12 months and 18-24 months are recommended.
--- OUTSIDE RECORDS SUMMARY | 2024-07-18 17:02 | XMS_ITS | Clinical Summary ---
Author Organization [facility] Address [address] [place] [address] Care Team Providers Care Director Of Informatics Name Role Phone Unavailable Primary Care Provider [...]
--- OUTSIDE RECORDS SUMMARY | 2024-07-18 17:02 | XMS_ITS | Patient Health Record ---
Author Organization [facility] Address [address] [facility] [address] [place], [place] [address] Care Team Providers Care Slab Puller Name Role Phone Ronald Cristobal Unavailable [phone] Migration, Provider Unavailable Unavailable Allergies Allergen (clinical [...] review and pick correct strength-formula tion from Depositphotosan options. If intended option is not shown, [...] Status Risk Notes Problem Acute otitis externa (87915540) ACUTE OTITIS EXTERNA NEC (380.22) Active confirmed lt Problem Chronic infection of sinus (03194392) Chronic infection of sinus NOS (473.9) Active confirmed Problem Otalgia NOS (388.70) Active confirmed lt Encounters Encounter Location Date Provider Diagnosis [facility] [address] [facility] [address] [place], [place] [phone] 03/10/2024 Provider Migration ACUTE OTITIS EXTERNA NEC 380.22 Assessments Encounter Date Diagnosis (ICD Code) Assessment Notes Treatment Notes Treatment Clinical Notes Section Notes 03/10/2024 ACUTE OTITIS EXTERNA NEC (ICD9-CM - 380.22) lt Plan Of Treatment No Information Insurance Providers Payer Name Payer Address Payer Phone Subscriber Number Group Number Insured Name Patient Relationship to Insured Coverage Start Date Coverage End Date Christiane [facility] [id number] [place] [address] [id number] Brian Abarca Self - patient is the [...]
--- OUTSIDE RECORDS SUMMARY | 2024-07-18 17:02 | XMS_ITS ---
Author Organization [facility] Address [address] [facility] [address] [place], [place] [id number] Care Team Providers Care Underwear Hemmer Name Role Phone Ronald Cristobal Unavailable [phone] Migration, Provider Unavailable Unavailable Allergies Allergen (clinical drug ingredient) Drug/Non Drug Allergy documented on EMR Reaction Allergy Type Onset Date Status HYDROCODONE CP (uncoded) Unknown Allergy Active amoxicillin / clavulanate Augmentin Unknown Drug Allergy Active clindamycin Clindamycin Unknown Drug Allergy Act maritza REASON FOR VISIT [facility] To [facility] Conversion Encounter Medications Medication SIG [...] review and pick correct strength-formula tion from SoshiGamesspan options. If intended option is not shown, [...] Location Date Provider Diagnosis [facility] [place] [address] [address] [facility] [address] [place], [place] [id number] 03/10/2024 Provider Migration ACUTE OTITIS EXTERNA NEC [...] Progress Notes * GODINEZLebronningDOB:1950 (74 yo M)Acc No.[id number]:03/10/2024 Patient: Brian MOSELEY Provider: Veronica claire Migration :1950 A ge:74 Y S ex:Male Date:03/10/2024 Address:[address] [place] [address] Subjective: * Chief Complaints: * 1 . Multum To Medispan Conversion Encounter. * Medical History: * Medications: T aking Amoxicillin 500 MG Capsule 1 cap(s) orally 3 times a day , Taking oxyCODONE HCl 7.5 MG TABLET 1 TAB(S) ORALLY EVERY 6 HOURS , Notes to Pharmacist: *Please review and pick correct strength-formulation from SoshiGamesspan options. If intended option is not shown, [...] Electronic signature of Prov ider Migration on 07/18/2024 at 05:02 PM CDT Sign off status: Pending * Provider: Veronica claire Migration Date: 05/11/2023 Generated for Margie hess/Radha/Traitting on: 07/18/2024 05:02 PM CDT
--- OUTSIDE RECORDS SUMMARY | 2024-07-18 17:02 | XMS_ITS | Encounter Summary ---
Author Organization [facility] Address [address] [facility] [place] [address] Care Team Providers Care Cross Country Coach Name Role Phone Michael Hussein MD Primary Care Provider [phone] Reason for Visit * Reason Onset Date Comments Update 07/17/2024 Encounter Details Date Type Department Care Team (Late st Contact Info) Description 07/17/2024 Telephone [facility] - Rheumatology [address], [address] [place] [address] Tuan Poon DO [address] [place] [address] Update Social History Tobacco Use Types Packs/Day Years Used Date Smoking Tobacco: Never Smokeless Tobacco: Never Alcohol Use Standard Drinks/Week Comments Not Currently 0 (1 standard drink = 0.6 oz pur e alcohol) Sex and Gender Information Value Date Recorded Sex Assigned at Not on file Legal Sex Male 1:56 PM HEALTH AND SAFETY SPECIALIST Gender Identity Not on file Sexual Orientation Not on file Occupation Industry Job Start Date Job End Date retired Not on file Not on file Not on file documented as of this encounter Functional Status * Is person deaf or have serious hearing difficulty? Answer Date of Assessment Author No 12/20/2017 5:00 PM CDT Andrew Stewart RN * Is person blind or have serious difficulty seeing? Answer Date of Assessment Author No 12/20/2017 5:00 PM CDT Andrew Stewart RN * Does person have serious difficulty walking/climbing stairs? Answer Date of Assessment Author No 12/20/2017 5:00 PM LEOT Andrew Stewart RN * Does person have difficulty dressing/bathing? Answer Date of Assessment Author No 12/20/2017 5:00 PM LEOT Andrew Stewart RN * Does person have difficulty doing errands alone? Answer Date of Assessment Author No 12/20/2017 5:00 PM LEOT Andrew Stewart RN documented as of this encounter Mental Status * Does person have difficulty concentrating/remembering/making decisions? Answer Entry Date Author No 12/20/2017 5:00 PM Andrew Parada RN documented in this encounter Miscellaneous Notes * Telephone Encounter - Josh Alexander RN - 07/18/2024 11:05 AM CDT Patient called and informed me that the PCP office called and Dr. Hussein is actually ordering an MRI for further imaging of the affected elbow. Patient also reports the luxamend wound cream is helping his pain significantly as well. Patient will call the office to report when the MRI is finally scheduled for. Patient further confirmed that his infusions were put on hold as well by PCP office. Will update Dr. Poon. * Telephone Encounter - Josh Alexander RN - 07/18/2024 10:[address] Hussein's PCP office and was unable to reach the clinical staff and had to LMOR. Called x1. * Telephone Encounter - Josh Alexander RN - 07/17/2024 4:46 PM CDT Patient contacted and informed of Dr. Poon's below response. Patient unfortunately informed me that he has been continuing on Orencia monthly infusions with the most recent being a week ago. Sandy hold all further infusions. Patient did request that these recommendations be sent to Dr. Hussein's office (this was done and the below response was faxed to their office) and will follow-up with the office tomorrow as well. Patient reports that he is already scheduled for a CT of the chest next week due to his ongoing URI symptoms and nodules that were previously discovered on the lungs with past imaging and is hopeful that the below recommended CT could be done at the same time or around that time. All questions and concerns addressed, patient verbalized understanding and no further questions at this time. Patient will call the PCP office tomorrow afternoon to follow-up on this. * Telephone Encounter - Tuan Poon DO - 07/17/2024 4:39 PM CDT Reviewed provided primary care chart notes from May and June office encounters indicating nonhealing wound over a extensor elbow/olecranon bursa which could suggest a septic bursitis or perhaps olecranon osteomyelitis especially in view of immune suppression with use of Orencia monthly treatment for rheumatoid arthritis. Given lack of full response following 3 weeks of oral amoxicillin clavulanic acid antibiotic treatment would suggest closer follow-up with an orthopedic surgeon to evaluate for possible septic olecranon bursitis but also would require imaging including at minimum x-ray and perhaps CT imaging of theelbow to evaluate for osteomyelitis or appearance of changes suggesting a septic elbow arthritis needing immediate surgical intervention. Should not be receiving any Orencia treatment until all skin wounds have completely healed. * Telephone Encounter - Lilly Dalton LPN - 07/17/2024 3:[address] Hussein's office calling At 3:10 pm to make an appointment with Dr Poon for R elbow bursitis butthen progresses to say that the R elbow has an open wound with drainage.Has been placed on antibiotics but has not improved , still warm, red, inflamed and painful. Made soonest appointment with Dr Poon, July 26. Requested Dr Hussein's most recent office notes, labs, meds faxed to us for review. * Telephone Encounter - Josh Alexander RN - 07/17/2024 3:27 PM CDT Patient called to cancel the appointment that had previously been scheduled by his PCP nursing staff on 07/26/2024. Per the report patient provided since November he has been having symptoms that he describes as being mostly related to bursitis in both elbows. Patient was managed with steroids for the symptoms, but then experienced a fall that scraped the elbows and caused an opening of the sensitive areas. Patient reports that one area on the right elbow stubbornly refuses to close up, despite treatment with antibiotics by his PCP. Patient further reports that his air cargo specialist supervisor is recommending a wound ointment, but that they also stated the area might require biopsy if it continues to persist despite that. Patient states his PCP office wanted him to see rheumatology due to the persistent nature of his elbow pain and the now ongoing skin abrasions and non-healing wounds. Patient lives far away though and is not sure Dr. Poon would be able to assist and would like to avoid this sooner appointment if possible. Patient was advised to have his dermatology office send the most recent notes to our fax for Dr. Poon to review as that might be helpful in further determining what more could be provided by rheumatology. Spoke with MIRYMA Carr who informed me that she had spoken with the PCP office staff and she will add her documentation below. documented in this encounter Plan of Treatment Upcoming Encounters Date Type Department Care Team (Late st Contact Info) Description 12/06/2024 9:00 AM CDT Office Visit [facility] - Rheumatology [address], [address] [place] [address] Tuan Poon, [address] [place] [address] documented as of this encounter Visit Diagnoses Not on filedocumented in this encounter Care Teams Cross Country Coach Relationship Specialty Start Date End Date Michael Hussein MD [address] [place] [address] PCP - General Internal Medicine 06/04/21 documented as of this encounter
--- OUTSIDE RECORDS SUMMARY | 2024-07-18 17:02 | XMS_ITS | Clinical Summary ---
Author Organization [place] [address] [facility] Address [address] [place] [address] Care Team Providers Care Customer Account Specialist Name Role Phone Stephan Tomas DO Primary Care Provider [phone] Social History Tobacco Use Types Packs/Day Years [...] 2027 Insurance MEDICARE PART A AND B [place] [id number] Care Teams Customer Account Specialist Relationship Specialty Start Date End Date Stephan Tomas DO [address] [place] [address] PCP - General Family Practice 09/25/18
--- OUTSIDE RECORDS SUMMARY | 2024-07-18 17:03 | XMS_ITS | Clinical Summary ---
Author Organization [facility] Address [address] [place] [address] Care Team Providers Care District Administrative Assistant Name Role Phone Michael Hussein MD Primary Care Provider Source Comments [facility],non-owned Affiliates and Associated Physician Practices is amultiple site organization consisting of ambulatory clinics and hospital sitesin [place], [place] and [place]. This disclosure is being madepursuant to the Care Everywhere program and may not contain all information available regarding this patient. Last updated 17.[facility] Allergies Active Allergy Reactions Criticality Noted Date [...] Active Problems Problem Noted Date Diagnosed Date meterman (current) use of i 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 Rheumatoid arthritis of [facility] sites with negative rheumatoid factor 05/26/2017 [...] 12/02/2022 Assessment & Plan (06/04/2021 11:10 AM EDGE BURNISHER): Reviewed potential inherent risks with the continued [...] the use of this form of treatment. Encounters Date Type Department Care Team Description 07/17/2024 Telephone [facility] - Rheumatology [address], [address] [place] [address] Tuan Poon DO Update from Last 3 Months Immunizations Immunization Administration Dates Next Due Covid [...] on file Legal Sex Male 1:56 PM EDGE BURNISHER Gender Identity Not on file Sexual Orientation [...] Description 12/06/2024 9:00 AM CDT Office Visit [facility] - Rheumatology [address] [place] [address] Tuan Poon DO [address] [place] [address] Health Maintenance Due Date [...] COVID-19 VACCINE ( season) 2023 06/19/2020, 05/22/2020 DEPRESSION SCREENING 03/28/2024 [...] this topic Medical Devices Implanted Type Area Business Solutions Director Device Identifier Shelf Expiration Date Model / Serial / Lot Graft Bone Alfs + Dbm 5ml Ptty Implanted:Qty: 1 on 12/20/2017 by Easton Paula DO at [facility] N/A: Spine Lumbar All[employer]ource 04/27/2019 [id number] / / [id number] [place] Set Screw Implanted:Qty: 4 on 12/20/2017 by Easton Paula DO at [facility] N/A: Spine Lumbar [employer] [id number] / / 6.5x50mm Screw Implanted:Qty: 2 on 12/20/2017 by Easton Paula DO at [facility] N/A: Spine Lumbar [employer] [id number] / / 6.5x55mm Screw Implanted:Qty: 1 on 12/20/2017 by Easton Paula DO at [facility] N/A: Spine Lumbar [employer] [id number] / / 6.5x60mm Screw Implanted:Qty: 1 on 12/20/2017 by Easton Paula DO at [facility] N/A: Spine Lumbar [employer] [id number] / / 35mm Flavio Implanted:Qty: 1 on 12/20/2017 by Easton Paula DO at [facility] N/A: Spine Lumbar [employer] [id number] / / 40mm Flavio Implanted:Qty: 1 on 12/20/2017 by Easton Paula DO at [facility] N/A: Spine Lumbar [employer] [id number] / / Procedures Procedure Name Priority Date/Time Associated Diagnosis Comments COMPREHENSIVE METABOLIC PANEL 11/05/2020 3:48 PM CDT HEPATITIS SCREEN ACUTE 0 3:20 PM EDGE BURNISHER ENDOSCOPY, COLON, SCREENING Routine 01/31/2012 1:26 PM EDGE BURNISHER from Last 3 Months or Most Recently Relevant to Health Maintenance Results * (ABNORMAL) COMPREHENSIVE METABOLIC PANEL (11/05/2020 3:48 PM CDT) [facility] Glucose 99 65 - 99 mg/dL [facility] Comment: Fasting reference interval BUN 32(H) 7 - 25 mg/dL [facility] Creatinine 1.36(H) 0.70 - 1.25 mg/dL [facility] Comment: For patients >49 years of age, the reference limit for Creatinine is approximately 13% higher for people identified as -Irish. eGFR by MDRD 53(L) > OR = [...] 46 U/L [facility] Comment: Test Performed at: [facility] [place] [id number] [place] [address] SHEILA PÉREZ DO,MPH 11/05/2020 3:48 PM CDT 11/05/2020 3:49 PM CDT Narendra Spencer MD LAB - CHEMISTRY ORDERABLES Final Result [facility] [id number] [place] [address] * HEPATITIS SCREEN ACUTE (02/06/2020 3:20 PM EDGE BURNISHER) Hepatitis A Virus Antibody IgM NON-REACT LINDA NON-REACT LINDA [facility] Comment: For additional information, please refer to http://education.MBM Solutions.Trovix/faq/FTT244 (This link is being provided for informational/ [...] a test for HCV RNA (test code 48973) is suggested. For additional information please refer to http://education.Pivotal Software/faq/IUN46b3 (This link is being provided for informational/ educational purposes only.) Test Performed at: [facility] [id number] [place] [address] SHEILA PÉREZ DO,MPH 02/06/2020 3:20 PM EDGE BURNISHER 02/06/2020 3:21 PM EDGE BURNISHER Narendra Spencer MD LAB - CHEMISTRY ORDERABLES Final Result Performing Organization Address [facility] de Phone Number [facility] [address] [place] [address] * ENDOSCOPY, COLON, SCREENING (01/31/2012 1:26 PM EDGE BURNISHER) Narrative Transcriptions Amaury Noyola MD - 01/31/2012 1:26 PM CST us Amaury Noyola MD GI PROCEDURE ORDERABLES Final Re sult Performing Organization Address [facility] Co de Phone Number [facility] ENDOSCOPY from Last 3 Months or Most Recently Relevant to Health Maintenance Insurance MEDICARE MEDICARE [facility]IC[facility] Advance Directives Documents on File Type Date Recorded Patient Clinical Nursing Instructor Expl anation Adv Directive/Living Will/POA 12/20/2017 Adv Directive/Living Will/POA 09/06/2013 10:31 PM * Full Code (Latest Code Status on File) Date Activated Date Inactivated Comments 12/20/2017 5:02 PM 12/22/2017 1:45 PM * Full Code Date Activated Date Inactivated Comments 09/04/2013 2:46 PM 09/05/2013 6:37 PM Care Teams District Administrative Assistant Relationship Specialty Start Date End Date Michael Hussein MD [address] [place] [id number] PCP - General Internal Medicine 06/04/21
== END 2024-07-18 14:56 | disposition home or self-care (01) ==
LOC: CHSIMG 14:57
PROVIDERS: PCP Internal Medicine; Visit Provider Internal Medicine
DX: R91.8 Other nonspecific abnormal finding of lung field (principal)
CPT/HCPCS: 71250

== ENCOUNTER 2024-07-21 07:44 | Outpatient (CLI) | payer MEDICARE, SELFPAY ==
--- NOTE | ~2024-07-21 | MR_ITS ---
EXAMINATION: MR elbow RT wo/w con DATE: 07/21/2024 08:39 INDICATION: Olecranon bursitis posterior to the right elbow TECHNIQUE: Magnetic resonance imaging (MRI) of the right elbow was performed without and with 20 mL M ultihance intravenous contrast. Sequences included axial T1-weighted FSE, axial T2-weighted FS FSE, c oronal T1-weighted FSE, coronal T2-weighted FS FSE, sagittal T1-weighted FSE and sagittal T2-weighted FS FSE. Precontrast axial T1-weighted FS FSE and post contrast axial, sagittal and coronal T1-weight ed FS FSE were also obtained. COMPARISON: None. FINDINGS: Osseous/other: Normal alignment. Normal marrow signal with no marrow edema, fracture, osteochondral lesion or patho logic marrow replacing process. Tendons: Triceps, biceps brachii and brachialis tendons are normal. Common flexor tendon wad is normal. The c ommon extensor tendon wad is normal. Ligaments: The medial and lateral collateral ligament complexes are normal. Cubital tunnel: Cubital tunnel is unremarkable with normal signal and caliber of the ulnar nerve. Fluid: Physiologic amount of fluid the elbow joint. Minimal subcutaneous edema posterior to the olecranon wi th no abnormal fluid collection to suggest olecranon bursitis. IMPRESSION: 1. Minimal subcutaneous edema posterior to olecranon with no evident bursitis. Otherwise normal MRI o f the right elbow. Reviewed, dictated and finalized at location A. IMPRESSION: 1. Minimal subcutaneous edema posterior to olecranon with no evident bursitis. Otherwise normal MRI of the right elbow.
--- OUTSIDE RECORDS SUMMARY | 2024-07-21 07:47 | XMS_ITS | Clinical Summary ---
Author Organization [email or web address] Address [address] [place] [address] Care Team Providers Care Wax Blender Name Role Phone Michael Hussein MD Primary Care Provider [phone] Source Comments [email or web address],non-owned Affiliates and Associated Physician Practices is amultiple site organization consisting of ambulatory clinics and hospital sitesin [place], [place], [place] and [place]. This disclosure is being madepursuant to the Care Everywhere program and may not contain all information available regarding this patient. Last updated 17.[email or web address] Allergies Active Allergy Reactions Criticality Noted Date [...] does offer some benefit. Rheumatoid arthritis of [facility] sites with negative rheumatoid factor [...] 12/02/2022 Assessment & Plan (06/04/2021 11:10 AM PHYSICIAN RELATIONS SPECIALIST): Reviewed potential inherent risks with the [...] Type Department Care Team Description 07/17/2024 Telephone [facility] - Rheumatology [address], [address] [place] [address] Tuan Poon DO Update from [...] on file Legal Sex Male 1:56 PM PHYSICIAN RELATIONS SPECIALIST Gender Identity Not on file Sexual [...] Description 12/06/2024 9:00 AM CDT Office Visit [facility] - Rheumatology [address], [address] [place] [address] Tuan Poon DO [address] [place] [address] Health Maintenance Due Date Last [...] this topic Medical Devices Implanted Type Area Leave Coordinator Device Identifier Shelf Expiration Date Model / Serial / Lot Graft Bone Alfs + Dbm 5ml Ptty Implanted:Qty: 1 on 12/20/2017 by Easton Paula DO at [facility] N/A: Spine Lumbar Allosource 04/27/2019 [id number] / / [id number] [place] Set Screw Implanted:Qty: 4 on 12/20/2017 by Easton Paula DO at [facility] N/A: Spine Lumbar [employer] [id number] / / 6.5x50mm Screw Implanted:Qty: 2 on 12/20/2017 by Easton Paula DO at [facility] N/A: Spine Lumbar [employer] [id number] / / 6.5x55mm Screw Implanted:Qty: 1 on 12/20/2017 by Easton Paula DO at [facility] N/A: Spine Lumbar [employer] [id number] / / 6.5x60mm Screw Implanted:Qty: 1 on 12/20/2017 by Easton Paula DO at [facility] N/A: Spine Lumbar [employer] [id number] / / 35mm Flavio Implanted:Qty: 1 on 12/20/2017 by Easton Paula DO at [facility] N/A: Spine Lumbar [employer] [id number] / / 40mm Flavio Implanted:Qty: 1 on 12/20/2017 by Easton Paula DO at [facility] N/A: Spine Lumbar [employer] [id number] / / Procedures Procedure Name Priority Date/Time Associated Diagnosis Comments COMPREHENSIVE METABOLIC PANEL 11/05/2020 3:48 PM CDT HEPATITIS SCREEN ACUTE 0 3:20 PM PHYSICIAN RELATIONS SPECIALIST ENDOSCOPY, COLON, SCREENING Routine 01/31/2012 1:26 PM PHYSICIAN RELATIONS SPECIALIST from Last 3 Months or Most Recently Relevant to Health Maintenance Results * (ABNORMAL) COMPREHENSIVE METABOLIC PANEL (11/05/2020 3:48 PM CDT) [facility] Glucose 99 65 - 99 mg/dL [facility] Comment: Fasting reference interval BUN 32(H) 7 - 25 mg/dL [facility] Creatinine 1.36(H) 0.70 - 1.25 mg/dL [facility] Comment: For patients >49 years of age, the reference limit for Creatinine is approximately 13% higher for people identified as -[place] Islander. eGFR by MDRD 53(L) > OR = [...] 46 U/L [facility] Comment: Test Performed at: [email or web address] [place] [id number] [place] [address] SHEILA PÉREZ DO,MPH 11/05/2020 3:48 PM CDT 11/05/2020 3:49 PM CDT Narendra Spencer MD LAB - CHEMISTRY ORDERABLES Final Result [facility] [id number] [place] [address] * HEPATITIS SCREEN ACUTE (02/06/2020 3:20 PM PHYSICIAN RELATIONS SPECIALIST) Hepatitis A Virus Antibody IgM NON-REACT LINDA NON-REACT LINDA [facility] Comment: For additional information, please refer to http://education.agámi Systems.Piggybackr/faq/EWD679 (This link is being provided for informational/ [...] a test for HCV RNA (test code 10175) is suggested. For additional information please refer to http://education.Kincast/faq/MFC73j6 (This link is being provided for informational/ educational purposes only.) Test Performed at: [facility] [id number] [place] [address] SHEILA PÉREZ DO,MPH 02/06/2020 3:20 PM PHYSICIAN RELATIONS SPECIALIST 02/06/2020 3:21 PM PHYSICIAN RELATIONS SPECIALIST Narendra Spencer MD LAB - CHEMISTRY ORDERABLES Final Result Performing Organization Address [facility] de Phone Number [facility] [address] [place] [address] * ENDOSCOPY, COLON, SCREENING (01/31/2012 1:26 PM PHYSICIAN RELATIONS SPECIALIST) Narrative Transcriptions Amaury Noyola MD - 01/31/2012 1:26 PM CST us Amaury Noyola MD GI PROCEDURE ORDERABLES Final Re sult Performing Organization Address [facility] Co de Phone Number [facility] ENDOSCOPY from Last 3 Months or Most Recently Relevant to Health Maintenance Insurance MEDICARE MEDICARE [facility] MEDICARE [facility] MEDICARE [facility] Address: [address] [place] [address] Advance Directives Documents on File Type Date Recorded Patient Urgent Care Technician Expl anation Adv Directive/Living Will/POA 12/20/2017 Adv Directive/Living Will/POA 09/06/2013 10:31 PM * Full Code (Latest Code Status on File) Date Activated Date Inactivated Comments 12/20/2017 5:02 PM 12/22/2017 1:45 PM * Full Code Date Activated Date Inactivated Comments 09/04/2013 2:46 PM 09/05/2013 6:37 PM Care Teams Wax Blender Relationship Specialty Start Date End Date Michael Hussein MD [address] [place] [phone] PCP - General Internal Medicine 06/04/21
--- OUTSIDE RECORDS SUMMARY | 2024-07-21 07:47 | XMS_ITS | Clinical Summary ---
Author Organization [facility] [employer] [address] [facility] Address [address] [place] [address] Care Team Providers Care Residential Coordinator Name Role Phone Stephan Tomas DO Primary Care Provider [phone] Social History Tobacco Use Types Packs/Day Years [...] 2027 Insurance MEDICARE PART A AND B [place] [id number] Care Teams Residential Coordinator Relationship Specialty Start Date End Date Stephan Tomas DO [address] [place] [address] PCP - General Family Practice 09/25/18
--- OUTSIDE RECORDS SUMMARY | 2024-07-21 07:47 | XMS_ITS | Clinical Summary ---
Author Organization [facility] Address [address] [place] [address] Care Team Providers Care Manager Game Name Role Phone Unavailable Primary Care Provider [...]
== END 2024-07-21 07:45 | disposition home or self-care (01) ==
LOC: CHSIMG 07:45
PROVIDERS: PCP Internal Medicine; Visit Provider Internal Medicine
DX: M70.21 Olecranon bursitis, right elbow (principal); M86.121 Other acute osteomyelitis, right humerus; M79.89 Other specified soft tissue disorders
CPT/HCPCS: 73223; A9577

== ENCOUNTER 2024-07-27 08:20 | Outpatient (CLI) | payer MEDICARE, SELFPAY ==
[2024-07-27 12:49] LABS: Anion Gap 4 mmol/L (4-12); Blood Urea Nitrogen 33 mg/dL (7-18); Carbon Dioxide 32 mmol/L (21-32); Chloride 103 mmol/L (98-108); Estimated Glomerular Filt Rate 36; Glucose 96 mg/dL (70-99); Osmolality Calculated 295 mOsm/kg (285-295); Potassium 4.6 mmol/L (3.5-5.1); Sodium 139 mmol/L (136-145)
--- OUTSIDE RECORDS SUMMARY | 2024-07-28 13:13 | XMS_ITS ---
Author Organization [facility] Address [address] [place], [place] [address] Care Team Providers Care Grain Sacker Name Role Phone Ronald Cristobal Unavailable [phone] Migration, Provider Unavailable Unavailable Allergies Allergen (clinical drug ingredient) Drug/Non Drug Allergy documented on EMR Reaction Allergy Type Onset Date Status HYDROCODONE CP (uncoded) Unknown Allergy Active amoxicillin / clavulanate Augmentin Unknown Drug Allergy Active clindamycin Clindamycin Unknown Drug Allergy Act maritza REASON FOR VISIT [facility] To [facility] Conversion Encounter Medications Medication SIG (Take, [...] review and pick correct strength-formula tion from Jammcardspan options. If intended option is not shown, [...] Location Date Provider Diagnosis [facility] [place] [address] [place], [place] [id number] 03/10/2024 Provider Migration ACUTE OTITIS EXTERNA NEC [...] Progress Notes * GODINEZLebronningDOB:1950 (74 yo M)Acc No.[id number]:03/10/2024 Patient: Brian MOSELEY Provider: Veronica claire Migration :1950 A ge:74 Y S ex:Male Date:03/10/2024 Address:[address] [place] [address] Subjective: * Chief Complaints: * 1 . Multum To Medispan Conversion Encounter. * Medical History: * Medications: T aking Amoxicillin 500 MG Capsule 1 cap(s) orally 3 times a day , Taking oxyCODONE HCl 7.5 MG TABLET 1 TAB(S) ORALLY EVERY 6 HOURS , Notes to Pharmacist: *Please review and pick correct strength-formulation from Jammcardspan options. If intended option is not shown, [...] Electronic signature of Prov ider Migration on 07/28/2024 at 01:13 PM CDT Sign off status: Pending * Provider: Veronica claire Migration Date: 05/11/2023 Generated for Margie hess/Radha/Traitting on: 07/28/2024 01:13 PM CDT
--- OUTSIDE RECORDS SUMMARY | 2024-07-28 13:13 | XMS_ITS | Encounter Summary ---
Author Organization [facility] Address [address] [place] [address] Care Team Providers Care Furnace Checker Name Role Phone Michael Hussein MD Primary Care Provider [phone] Encounter Details Date Type Department Care Team (Late st Contact Info) Description 07/25/2024 Results Follow-Up [facility] - Rheumatology [address], [address] [place] [address] Tuan Poon DO [address] [place] [address] Social History Tobacco Use Types Packs/Day Years Used Date Smoking Tobacco: Never Smokeless Tobacco: Never Alcohol Use Standard Drinks/Week Comments Not Currently 0 (1 standard drink = 0.6 oz pur e alcohol) Sex and Gender Information Value Date Recorded Sex Assigned at Not on file Legal Sex Male 1:56 PM 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 Answer Date of Assessment Author No 12/20/2017 5:00 PM Andrew Parada RN * Is person blind or have serious difficulty seeing? Answer Date of Assessment Author No 12/20/2017 5:00 PM Andrew Parada RN * Does person have serious difficulty [...] Andrew Parada RN documented in this encounter Plan of Treatment Upcoming Encounters Date Type Department Care Team (Late st Contact Info) Description 12/06/2024 9:00 AM CDT Office Visit [facility] - Rheumatology [address], [address] [place] [address] Tuan Poon DO [address] [place] [address] documented as of this encounter Visit Diagnoses Not on filedocumented in this encounter Care Teams Furnace Checker Relationship Specialty Start Date End Date Michael Hussein MD [address] [place] [id number] PCP - General Internal Medicine 06/04/21 documented as of this encounter
--- OUTSIDE RECORDS SUMMARY | 2024-07-28 13:13 | XMS_ITS | Clinical Summary ---
Author Organization [employer] [address] [facility] Address [address] [place] [address] Care Team Providers Care Maintainer Sewer And Waterworks Name Role Phone Stephan Tomas DO Primary Care Provider [phone] Social History Tobacco Use Types Packs/Day Years [...] 2027 Insurance MEDICARE PART A AND B [place] [id number] [place] [address] Care Teams Maintainer Sewer And Waterworks Relationship Specialty Start Date End Date Stephan Tomas DO [address] [place] [address] PCP - General Family Practice 09/25/18
--- OUTSIDE RECORDS SUMMARY | 2024-07-28 13:13 | XMS_ITS | Clinical Summary ---
Author Organization [facility] Address [address] [place] [address] Care Team Providers Care District Court Judge Name Role Phone Unavailable Primary Care Provider [...]
--- OUTSIDE RECORDS SUMMARY | 2024-07-28 13:13 | XMS_ITS | Clinical Summary ---
Author Organization [facility] Address [address] [place] [address] Care Team Providers Care Spring Setter Name Role Phone Michael Hussein MD Primary Care Provider Source Comments [facility],non-owned Affiliates and Associated Physician Practices is amultiple site organization consisting of ambulatory clinics and hospital sitesin [place], [place], [place] and [place]. This disclosure is being madepursuant to the Care Everywhere program and may not contain all information available regarding this patient. 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 Rheumatoid arthritis of [facility] sites with negative rheumatoid factor [...] 12/02/2022 Assessment & Plan (06/04/2021 11:10 AM TRIPE WASHER): Reviewed potential inherent risks with the continued [...] Encounters Date Type Department Care Team Description 07/25/2024 Results Follow-Up [facility] - Rheumatology [address], [address] [place] [address] Tuan Poon DO 07/17/2024 Telephone [facility] - Rheumatology [address], [address] [place] [address] Tuan Poon DO Update from Last 3 Months Immunizations Immunization Administration Dates Next Due Covid [employer] primary monoval ent 12+ yr 0.3mL Purple [...] on file Legal Sex Male 1:56 PM TRIPE WASHER Gender Identity Not on file Sexual Orientation [...] Encounters Date Type Department Care Team (Late Contact Info) Description 12/06/2024 9:00 AM CDT Office Visit [facility] - Rheumatology [address], [address] [place] [address] Tuan Poon, [address] [place] [address] Health Maintenance Due Date Last [...] this topic Medical Devices Implanted Type Area Director Packaging Device Identifier Shelf Expiration Date Model / Serial / Lot Graft Bone Alfs + Dbm 5ml Ptty Implanted:Qty: 1 on 12/20/2017 by Easton Paula DO at [facility] N/A: Spine Lumbar All[employer]ource 04/27/2019 [id number] / / [id number] [place] Set Screw Implanted:Qty: 4 on 12/20/2017 by Easton Paula DO at [facility] N/A: Spine Lumbar [employer] [id number] / / 6.5x50mm Screw Implanted:Qty: 2 on 12/20/2017 by Easton Paula DO at [facility] N/A: Spine Lumbar [employer] [id number] / / 6.5x55mm Screw Implanted:Qty: 1 on 12/20/2017 by Easton Paula DO at [facility] N/A: Spine Lumbar [employer] [id number] / / 6.5x60mm Screw Implanted:Qty: 1 on 12/20/2017 by Easton Paula DO at [facility] N/A: Spine Lumbar [employer] [id number] / / 35mm Flavio Implanted:Qty: 1 on 12/20/2017 by Easton Paula DO at [facility] N/A: Spine Lumbar [employer] [id number] / / 40mm Flavio Implanted:Qty: 1 on 12/20/2017 by Easton Paula DO at [facility] N/A: Spine Lumbar [employer] [id number] / / Procedures Procedure Name Priority Date/Time Associated Diagnosis Comments MRI ELBOW RIGHT WWO CONTRAST Routine 07/21/2024 8:32 AM CDT COMPREHENSIVE METABOLIC PANEL 11/05/2020 3:48 PM CDT HEPATITIS SCREEN ACUTE 0 3:20 PM TRIPE WASHER ENDOSCOPY, COLON, SCREENING Routine 01/31/2012 1:26 PM TRIPE WASHER from Last 3 Months or Most Recently Relevant to Health Maintenance Results * MRI Elbow Right Wwo Contrast (07/21/2024 8:32 AM CDT) Anatomical Region Laterality Modality Upper Extremity Magnetic Resonan ce us Scanned Document MR ORDERABLES Final Result * (ABNORMAL) COMPREHENSIVE METABOLIC PANEL (11/05/2020 3:48 PM CDT) Pathologist [facility] Glucose 99 65 - 99 mg/dL [facility] Comment: Fasting reference interval BUN 32(H) 7 - 25 mg/dL [facility] Creatinine 1.36(H) 0.70 - 1.25 mg/dL [facility] Comment: For patients >49 years of age, the reference limit for Creatinine is approximately 13% higher for people identified as -South African. eGFR by MDRD 53(L) > OR = [...] 46 U/L [facility] Comment: Test Performed at: [facility] [id number] [place] [address] SHEILA PÉREZ DO,MPH 11/05/2020 3:48 PM CDT 11/05/2020 3:49 PM CDT Narendra Spencer MD LAB - CHEMISTRY ORDERABLES Final Result Performing Organization Address [facility] de Phone Number [facility] [id number] [place] [address] * HEPATITIS SCREEN ACUTE (02/06/2020 3:20 PM TRIPE WASHER) Hepatitis A Virus Antibody IgM NON-REACT LINDA NON-REACT LINDA [facility] Comment: For additional information, please refer to http://[employer].Horizontal Systems/faq/XEM929 (This link is being provided for informational/ [...] a test for HCV RNA (test code 47682) is suggested. For additional information please refer to http://[employer].Horizontal Systems/faq/HNI97y0 (This link is being provided for informational/ educational purposes only.) Test Performed at: [facility] [address] [place] [address] SHEILA PÉREZ DO,MPH 02/06/2020 3:20 PM TRIPE WASHER 02/06/2020 3:21 PM [address] Result [facility] Narendra Spencer MD LAB - CHEMISTRY ORDERABLES Final Result Performing Organization Address [facility] de Phone Number [facility] [address] [place] [address] * ENDOSCOPY, COLON, SCREENING (01/31/2012 1:26 PM TRIPE WASHER) Narrative Transcriptions Amaury Noyola MD - 01/31/2012 1:26 PM CST Amaury Noyola MD GI PROCEDURE ORDERABLES Final Re sult Performing Organization Address [facility]/ZIP Co de Phone Number [facility] ENDOSCOPY from Last 3 Months or Most Recently Relevant to Health Maintenance Insurance MEDICARE MEDICARE [facility] MEDICARE [facility] MEDICARE [facility]END[facility] S[facility] TO [facility] Advance Directives Documents on File Type Date Recorded 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
--- OUTSIDE RECORDS SUMMARY | 2024-07-28 13:13 | XMS_ITS | Patient Health Record ---
Author Organization [facility] Address [address] [facility] [address] [place], [place] [address] Care Team Providers Care Block Placer Name Role Phone Ronald Cristobal Unavailable [phone] Migration, Provider Unavailable Unavailable Allergies Allergen (clinical [...] review and pick correct strength-formula tion from Mediaoceanan options. If intended option is not shown, [...] Status Risk Notes Problem Acute otitis externa (89918249) ACUTE OTITIS EXTERNA NEC (380.22) Active confirmed lt Problem Chronic infection of sinus (34975809) Chronic infection of sinus NOS (473.9) Active confirmed Problem Otalgia NOS (388.70) Active confirmed lt Encounters Encounter Location Date Provider Diagnosis [facility] [address] [facility] [address] [place], [place] [id number] 03/10/2024 Provider Migration ACUTE OTITIS EXTERNA NEC 380.22 Assessments Encounter Date Diagnosis (ICD Code) Assessment Notes Treatment Notes Treatment Clinical Notes Section Notes 03/10/2024 ACUTE OTITIS EXTERNA NEC (ICD9-CM - 380.22) lt Plan Of Treatment No Information Insurance Providers Payer Name Payer Address Payer Phone Subscriber Number Group Number Insured Name Patient Relationship to Insured Coverage Start Date Coverage End Date Christiane [facility] [place] [id number] [place] [address] [id number] Brian Abarca Self - patient is the [...]
== END 2024-07-27 08:21 | disposition home or self-care (01) ==
LOC: CHSLAB 12:30
PROVIDERS: PCP Internal Medicine; Visit Provider Internal Medicine
DX: E86.0 Dehydration (principal)
CPT/HCPCS: 36415; 80048

== ENCOUNTER 2024-08-16 12:54 | Outpatient (CLI) | payer MEDICARE, SELFPAY ==
--- OUTSIDE RECORDS SUMMARY | 2024-08-16 12:59 | XMS_ITS | Clinical Summary ---
Author Organization [facility] Address [address] [place] [address] Care Team Providers Care Spot Machine Operator Name Role Phone Michael Hussein MD Primary Care Provider [phone] Source Comments [facility],non-owned Affiliates and Associated Physician Practices is amultiple site organization consisting of ambulatory clinics and hospital sitesin [place], [place], [place] and [place]. This disclosure is being madepursuant to the Care Everywhere program and may not contain all information available regarding this patient. Last updated 17.[facility] Allergies Active Allergy Reactions Criticality Noted Date [...] Rheumatoid Arthritis 1 Each 11 4 Active predniSONE (Deltasone) 5 MG tabletIndicatio ns:Rheumatoid arthritis of multiple sites with negative rheumatoid factor (HCC) Take 5 tablets immediately on day 1, then take 4 tablets in the morning on day 2, then 3 tablets on day 3, then 2 tablets on day 4, then 1 tablet on day 5, then stop. 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 Rheumatoid arthritis of [facility] sites with negative rheumatoid factor 05/26/2017 [...] 12/02/2022 Assessment & Plan (06/04/2021 11:10 AM HUMAN RESOURCES COMMUNICATIONS MANAGER): Reviewed potential inherent risks with the continued [...] Encounters Date Type Department Care Team Description 08/10/2024 Telephone [facility] - Rheumatology [address], [address] [place] [address] Tuan Poon DO Update 07/25/2024 Results Follow-Up [facility] - Rheumatology [address], [address] [place] [address] Tuan Poon DO 07/17/2024 Telephone [facility] - Rheumatology [address], [address] [place] [address] Tuan Poon DO Update from Last 3 Months Immunizations Immunization Administration Dates Next Due Covid [employer] primary monoval ent 12+ yr 0.3mL Purple [...] on file Legal Sex Male 1:56 PM HUMAN RESOURCES COMMUNICATIONS MANAGER Gender Identity Not on file Sexual Orientation [...] 8:45 AM CDT Height 177.8 cm (5' 10) 12/01/2023 8:45 AM CDT Body Mass Index 30.85 12/01/2023 8:45 AM CDT Plan of Treatment Upcoming Encounters Date Type Department Care Team (Late st Contact Info) Description 12/06/2024 9:00 AM CDT Office Visit [facility] - Rheumatology [address], [address] [place] [address] Tuan Poon DO [address] [place] [address] Health Maintenance Due Date Last [...] 07/10/2018, 04/10/2018, Additional history exists COVID-19 VACCINE (3 - season) 2023 06/19/2020, 05/22/2020 DEPRESSION SCREENING [...] this topic Medical Devices Implanted Type Area Public Housing Interviewer Device Identifier Shelf Expiration Date Model / Serial / Lot Graft Bone Alfs + Dbm 5ml Ptty Implanted:Qty: 1 on 12/20/2017 by Easton Paula DO at [facility] N/A: Spine Lumbar Allosource 04/27/2019 [id number] / / [id number] [place] Set Screw Implanted:Qty: 4 on 12/20/2017 by Easton Paula DO at [facility] N/A: Spine Lumbar [employer], an [employer] [id number] / / 6.5x50mm Screw Implanted:Qty: 2 on 12/20/2017 by Easton Paula DO at [facility] N/A: Spine Lumbar [employer] [id number] / / 6.5x55mm Screw Implanted:Qty: 1 on 12/20/2017 by Easton Paula DO at [facility] N/A: Spine Lumbar [employer] [id number] / / 6.5x60mm Screw Implanted:Qty: 1 on 12/20/2017 by Easton Paula DO at [facility] N/A: Spine Lumbar [employer] [id number] / / 35mm Flavio Implanted:Qty: 1 on 12/20/2017 by Easton Paula DO at [facility] N/A: Spine Lumbar [employer] [id number] / / 40mm Flavio Implanted:Qty: 1 on 12/20/2017 by Easton Paula DO at [facility] N/A: Spine Lumbar [facility] [id number] / / Procedures Procedure Name Priority Date/Time Associated Diagnosis Comments MRI ELBOW RIGHT WWO CONTRAST Routine 07/21/2024 8:32 AM CDT COMPREHENSIVE METABOLIC PANEL 11/05/2020 3:48 PM CDT HEPATITIS SCREEN ACUTE 3:20 PM HUMAN RESOURCES COMMUNICATIONS MANAGER ENDOSCOPY, COLON, SCREENING Routine 01/31/2012 1:26 PM HUMAN RESOURCES COMMUNICATIONS MANAGER from Last 3 Months or Most Recently [...] approximately 13% higher for people identified as -Uzbek. eGFR by MDRD 53(L) > OR = [...] 46 U/L [facility] Comment: Test Performed at: [facility] [address] [place] [address] SHEILA PÉREZ DO,MPH 11/05/2020 3:48 PM CDT 11/05/2020 3:49 PM CDT Narendra Spencer MD LAB - CHEMISTRY ORDERABLES Final Result [facility] [address] [place] [address] * HEPATITIS SCREEN ACUTE (02/06/2020 3:20 PM HUMAN RESOURCES COMMUNICATIONS MANAGER) Hepatitis A Virus Antibody IgM NON-REACT LINDA NON-REACT LINDA [facility] Comment: For additional information, please refer to http://[employer].Rubysophic/faq/NGF161 (This link is being provided for informational/ [...] a test for HCV RNA (test code 37555) is suggested. For additional information please refer to http://[employer].Rubysophic/faq/IES74j9 (This link is being provided for informational/ educational purposes only.) Test Performed at: [facility] [address] [place] [address] SHEILA PÉREZ DO,MPH 02/06/2020 3:20 PM HUMAN RESOURCES COMMUNICATIONS MANAGER 02/06/2020 3:21 PM HUMAN RESOURCES COMMUNICATIONS MANAGER Narendra Spencer MD LAB - CHEMISTRY ORDERABLES Final Result Performing Organization Address City/[facility]/ZIP Co de Phone Number [facility] [address] [place] [address] * ENDOSCOPY, COLON, SCREENING (01/31/2012 1:26 PM HUMAN RESOURCES COMMUNICATIONS MANAGER) Narrative Transcriptions Amaury Noyola MD - 01/31/2012 1:26 PM CST us Amaury Noyola MD GI PROCEDURE ORDERABLES Final Re sult Performing Organization Address City/State/[facility] Co de Phone Number [facility] ENDOSCOPY from Last 3 Months or Most Recently Relevant to Health Maintenance Insurance MEDICARE [facility] Member Subscriber Plan / Payer (Ef fective 2017-Present) Name:Jin Abarca Relation to Subscriber:Self Name:Jin Abarca Payer ID:Not on file Group ID:Not on file Type:Commercial Address: [place] [phone] * Guarantor: JIN FORD Account Type Relation to Patient Date of Phone Billing Address Personal/Family 1950 [address] [place] [phone] MEDICARE [facility] MEDICARE [facility] [place] Advance Directives Documents on File Type Date 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
--- OUTSIDE RECORDS SUMMARY | 2024-08-16 12:59 | XMS_ITS ---
Author Organization [facility] Address [address] [facility] [address] [place], [place] [address] Care Team Providers Care Tooth Grinder Name Role Phone Ronald Cristobal Unavailable [phone] Migration, Provider Unavailable Unavailable Allergies Allergen (clinical drug ingredient) Drug/Non Drug Allergy documented on EMR Reaction Allergy Type Onset Date Status HYDROCODONE CP (uncoded) Unknown Allergy Active amoxicillin / clavulanate Augmentin Unknown Drug Allergy Active clindamycin Clindamycin Unknown Drug Allergy Act maritza REASON FOR VISIT [facility] To [facility] Conversion Encounter Medications Medication SIG (Take, [...] review and pick correct strength-formula tion from [employer] options. If intended option is not shown, [...] Location Date Provider Diagnosis [facility] [place] [address] [facility] [address] [place], [place] [address] 03/10/2024 Provider Migration ACUTE OTITIS EXTERNA NEC [...] Progress Notes * GODINEZLebronningDOB:1950 (74 yo M)Acc No.[id number]:03/10/2024 Patient: Brian MOSELEY Provider: Veronica claire Migration :1950 A ge:74 Y S ex:Male Date:03/10/2024 Address:[address] [place] [address] Subjective: * Chief Complaints: * 1 . Multum To Medispan Conversion Encounter. * Medical History: * Medications: T aking Amoxicillin 500 MG Capsule 1 cap(s) orally 3 times a day , Taking oxyCODONE HCl 7.5 MG TABLET 1 TAB(S) ORALLY EVERY 6 HOURS , Notes to Pharmacist: *Please review and pick correct strength-formulation from [employer] options. If intended option is not shown, [...] Electronic signature of Prov ider Migration on 08/16/2024 at 12:59 PM CDT Sign off status: Pending * Provider: Veronica claire Migration Date: 05/11/2023 Generated for Margie hess/Radha/Deenasmitting on: 08/16/2024 12:59 PM CDT
--- OUTSIDE RECORDS SUMMARY | 2024-08-16 12:59 | XMS_ITS | Encounter Summary ---
Author Organization [facility] Address [address] [place] [address] Care Team Providers Care Warehouse Operator Name Role Phone Michael Hussein MD Primary Care Provider [phone] Encounter Details Date Type Department Care Team (Late st Contact Info) Description 07/25/2024 Results Follow-Up [facility] - Rheumatology [address] [facility], [address] [place] [address] Tuan Poon DO [address] [facility] [address] [place] [address] Social History Tobacco Use Types Packs/Day Years Used Date Smoking Tobacco: Never Smokeless Tobacco: Never Alcohol Use Standard Drinks/Week Comments Not Currently 0 (1 standard drink = 0.6 oz pur e alcohol) Sex and Gender Information Value Date Recorded Sex Assigned at Not on file 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
--- OUTSIDE RECORDS SUMMARY | 2024-08-16 12:59 | XMS_ITS | Clinical Summary ---
Author Organization [facility] [address] [facility] Address [address] [place] [address] Care Team Providers Care Horse Breeder Name Role Phone Stephan Tomas DO Primary Care Provider [phone] Social History Tobacco Use Types Packs/Day Years [...] 2027 Insurance MEDICARE PART A AND B [place] [id number] Care Teams Horse Breeder Relationship Specialty Start Date End Date Stephan Tomas DO [address] [place] [address] PCP - General Family Practice 09/25/18
--- OUTSIDE RECORDS SUMMARY | 2024-08-16 12:59 | XMS_ITS | Patient Health Record ---
Author Organization [facility] Address [address] [facility] [address] [place], [place] [address] Care Team Providers Care Operational Trainer Name Role Phone Ronald Cristobal Unavailable [phone] Migration, Provider Unavailable Unavailable Allergies Allergen (clinical [...] review and pick correct strength-formula tion from Risk I/Oan options. If intended option is not shown, [...] Status Risk Notes Problem Acute otitis externa (99920301) ACUTE OTITIS EXTERNA NEC (380.22) Active confirmed lt Problem Chronic infection of sinus (75740530) Chronic infection of sinus NOS (473.9) Active confirmed Problem Otalgia NOS (388.70) Active confirmed lt Encounters Encounter Location Date Provider Diagnosis [facility] [address] [facility] [address] [place], [place] [id number] 03/10/2024 Provider Migration ACUTE OTITIS EXTERNA NEC 380.22 Assessments Encounter Date Diagnosis (ICD Code) Assessment Notes Treatment Notes Treatment Clinical Notes Section Notes 03/10/2024 ACUTE OTITIS EXTERNA NEC (ICD9-CM - 380.22) lt Plan Of Treatment No Information Insurance Providers Payer Name Payer Address Payer Phone Subscriber Number Group Number Insured Name Patient Relationship to Insured Coverage Start Date Coverage End Date Christiane [facility] [place] [id number] [place] [address] [id number] Brian Abarca Self - patient is the [...]
[2024-08-16 13:26] VITALS: BP 147/85; PULSE 85; RESP 14; TEMP 36; O2SAT 98; BMI 30.2
[2024-08-16] MEDS: ABATACEPT IVPB (13:30)
[2024-08-16] MEDS: MALTOSE IVPB (13:30)
[2024-08-16] MEDS: SODIUM CHLORIDE 0.9% IVPB (13:30)
[2024-08-16 14:25] VITALS: BP 125/70; PULSE 68; RESP 14; O2SAT 97
--- NOTE | 2024-08-16 14:37 | PC.NURSE ---
1400 Orencia infusion completed. 1425 Patient ambulating to leave OP infusion room reported dizziness. Patient set down. Vitals signs stable. Observed patient. 1440 Patient reports feeling better. Denies dizziness. Vital signs stable. Ambulated safely to bathroom. Was assisted out to friend that is picking him up.
[2024-08-16 14:41] VITALS: BP 134/80; PULSE 88; RESP 14; O2SAT 97
== END 2024-08-16 12:55 | disposition home or self-care (01) ==
PROVIDERS: PCP Internal Medicine; Visit Provider Internal Medicine Rheumatology
DX: M06.9 Rheumatoid arthritis, unspecified (principal)
CPT/HCPCS: 96365; J0129

== ENCOUNTER 2024-08-17 07:08 | Outpatient (CLI) | payer MEDICARE, SELFPAY ==
--- OUTSIDE RECORDS SUMMARY | 2024-08-17 07:13 | XMS_ITS | Clinical Summary ---
Author Organization [facility] Address [address] [place] [address] Care Team Providers Care Internet Sales Consultant Name Role Phone Michael Hussein MD Primary Care Provider [phone] [facility],non-owned Affiliates and Associated Physician Practices is amultiple site organization consisting of ambulatory clinics and hospital sitesin [place], [place], [place] and [place]. This disclosure is being madepursuant to the Care Everywhere program and may not contain all information available regarding this patient. Last updated 17.[facility] Allergies Active Allergy Reactions Criticality Noted Date [...] Active Problems Problem Noted Date Diagnosed Date penitentiary (current) use of i 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 Rheumatoid arthritis of [facility] sites with negative rheumatoid factor 05/26/2017 [...] 12/02/2022 Assessment & Plan (06/04/2021 11:10 AM RETREAD MOLD OPERATOR): Reviewed potential inherent risks with the [...] Type Department Care Team Description 08/10/2024 Telephone [facility] - Rheumatology [address] [facility], [address] [place] [address] Tuan Poon DO Update 07/25/2024 Results Follow-Up [facility] - Rheumatology [address] [facility], [address] [place] [address] Tuan Poon DO 07/17/2024 Telephone [facility] - Rheumatology [address], [address] [place] [address] Tuan Poon DO Update from Last 3 Months Immunizations Immunization Administration Dates Next Due Covid CeQur primary monoval ent 12+ yr 0.3mL Purple [...] on file Legal Sex Male 1:56 PM RETREAD MOLD OPERATOR Gender Identity Not on file Sexual Orientation [...] Description 12/06/2024 9:00 AM CDT Office Visit [facility] - Rheumatology [address] [facility], [address] [place] [address] Tuan Poon DO [address] [place] [address] Health Maintenance Due Date Last [...] this topic Medical Devices Implanted Type Area Black Topper Device Identifier Shelf Expiration Date Model / Serial / Lot Graft Bone Alfs + Dbm 5ml Ptty Implanted:Qty: 1 on 12/20/2017 by Easton Paula DO at [facility] N/A: Spine Lumbar [employer] 04/27/2019 [id number] / / [id number] Dalton Set Screw Implanted:Qty: 4 on 12/20/2017 by Easton Paula DO at [facility] N/A: Spine Lumbar [employer] [id number] / / 6.5x50mm Screw Implanted:Qty: 2 on 12/20/2017 by Easton Paula DO at [facility] N/A: Spine Lumbar [employer] [id number] / / 6.5x55mm Screw Implanted:Qty: 1 on 12/20/2017 by Easton Paula DO at [facility] N/A: Spine Lumbar [employer] [id number] / / 6.5x60mm Screw Implanted:Qty: 1 on 12/20/2017 by Easton Paula DO at [facility] N/A: Spine Lumbar [employer] [id number] / / 35mm Flavio Implanted:Qty: 1 on 12/20/2017 by Easton Paula DO at [facility] N/A: Spine Lumbar [employer] [id number] / / 40mm Flavio Implanted:Qty: 1 on 12/20/2017 by Easton Paula DO at [facility] N/A: Spine Lumbar [employer] [facility] [id number] / / Procedures Procedure Name Priority Date/Time Associated Diagnosis Comments MRI ELBOW RIGHT WWO CONTRAST Routine 07/21/2024 8:32 AM CDT COMPREHENSIVE METABOLIC PANEL 11/05/2020 3:48 PM CDT HEPATITIS SCREEN ACUTE 3:20 PM RETREAD MOLD OPERATOR ENDOSCOPY, COLON, SCREENING Routine 01/31/2012 1:26 PM RETREAD MOLD OPERATOR from Last 3 Months or Most [...] approximately 13% higher for people identified as -Omani. eGFR by MDRD 53(L) > OR = [...] 46 U/L [facility] Comment: Test Performed at: [facility] [id number] [place] [address] SHEILA PÉREZ DO,MPH 11/05/2020 3:48 PM CDT 11/05/2020 3:49 PM CDT Narendra Spencer MD LAB - CHEMISTRY ORDERABLES Final Result [facility] [address] [place] [address] * HEPATITIS SCREEN ACUTE (02/06/2020 3:20 PM RETREAD MOLD OPERATOR) Hepatitis A Virus Antibody IgM NON-REACT LINDA NON-REACT LINDA [facility] Comment: For additional information, please refer to http://Tipbit[employer]/faq/VDC213 (This link is being provided for informational/ [...] a test for HCV RNA (test code 78688) is suggested. For additional information please refer to http://Tipbit.[employer]/faq/LUJ67l6 (This link is being provided for informational/ educational purposes only.) Test Performed at: [facility] [address] [place] [address] SHEILA PÉREZ DO,MPH 02/06/2020 3:20 PM RETREAD MOLD OPERATOR 02/06/2020 3:21 PM RETREAD MOLD OPERATOR Narendra Spencer MD LAB - CHEMISTRY ORDERABLES Final Result Performing Organization Address City/[facility]/ZIP Co de Phone Number [facility] [address] [place] [address] * ENDOSCOPY, COLON, SCREENING (01/31/2012 1:26 PM RETREAD MOLD OPERATOR) Narrative Transcriptions Amaury Noyola MD - 01/31/2012 1:26 PM CST us Amaury Noyola MD GI PROCEDURE ORDERABLES Final Re sult Performing Organization Address City/State/[facility] Co de Phone Number [facility] ENDOSCOPY from Last 3 Months or Most Recently Relevant to Health Maintenance Insurance MEDICARE [facility] Member Subscriber Plan / Payer (Ef fective 2017-Present) Name:Jin Abarca Relation to Subscriber:Self Name:Jin Abarca Payer ID:Not on file Group ID:Not on file Type:Commercial Address: [place] [phone] * Guarantor: JIN FORD Account Type Relation to Patient Date of Phone Billing Address Personal/Family 1950 [address] [place] [id number] MEDICARE [facility] MEDICARE 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
--- OUTSIDE RECORDS SUMMARY | 2024-08-17 07:13 | XMS_ITS | Patient Health Record ---
Author Organization [facility] Address [address] [facility] [address] [place], [place] [address] Care Team Providers Care Corset Maker Name Role Phone Ronald Cristobal Unavailable [phone] Migration, Provider Unavailable Unavailable Allergies Allergen (clinical [...] review and pick correct strength-formula tion from [employer] options. If intended option is not shown, [...] Status Risk Notes Problem Acute otitis externa (17343015) ACUTE OTITIS EXTERNA NEC (380.22) Active confirmed lt Problem Chronic infection of sinus (12570422) Chronic infection of sinus NOS (473.9) Active confirmed Problem Otalgia NOS (388.70) Active confirmed lt Encounters Encounter Location Date Provider Diagnosis [facility] [address] [facility] [address] [place], [place] [address] 03/10/2024 Provider Migration ACUTE OTITIS EXTERNA NEC 380.22 Assessments Encounter Date Diagnosis (ICD Code) Assessment Notes Treatment Notes Treatment Clinical Notes Section Notes 03/10/2024 ACUTE OTITIS EXTERNA NEC (ICD9-CM - 380.22) lt Plan Of Treatment No Information Insurance Providers Payer Name Payer Address Payer Phone Subscriber Number Group Number Insured Name Patient Relationship to Insured Coverage Start Date Coverage End Date Christiane [facility] [place] [id number] [place] [address] [id number] Brian Abarca Self - patient is the [...]
--- OUTSIDE RECORDS SUMMARY | 2024-08-17 07:13 | XMS_ITS ---
Author Organization [facility] Address [address] [facility] [address] [place], [place] [address] Care Team Providers Care Room Service Manager Name Role Phone Ronald Cristobal Unavailable [phone] Migration, Provider Unavailable Unavailable Allergies Allergen (clinical drug ingredient) Drug/Non Drug Allergy documented on EMR Reaction Allergy Type Onset Date Status HYDROCODONE CP (uncoded) Unknown Allergy Active amoxicillin / clavulanate Augmentin Unknown Drug Allergy Active clindamycin Clindamycin Unknown Drug Allergy Act maritza REASON FOR VISIT [facility] Conversion Encounter Medications Medication SIG (Take, Route, [...] review and pick correct strength-formula tion from [employer] options. If intended option is not shown, [...] Location Date Provider Diagnosis [facility] [place] [address] [facility] [address] [place], [place] [address] 03/10/2024 Provider Migration ACUTE OTITIS EXTERNA NEC [...] Progress Notes * GODINEZLebronningDOB:1950 (74 yo M)Acc No.[id number]:03/10/2024 Patient: Brian MOSELEY Provider: Veronica claire Migration :1950 A ge:74 Y S ex:Male Date:03/10/2024 Address:[address] [place] [address] Subjective: * Chief Complaints: * 1 . Multum To Medispan Conversion Encounter. * Medical History: * Medications: T aking Amoxicillin 500 MG Capsule 1 cap(s) orally 3 times a day , Taking oxyCODONE HCl 7.5 MG TABLET 1 TAB(S) ORALLY EVERY 6 HOURS , Notes to Pharmacist: *Please review and pick correct strength-formulation from [employer] options. If intended option is not shown, [...] Electronic signature of Prov ider Migration on 08/17/2024 at 07:13 AM CDT Sign off status: Pending * Provider: Veronica claire Migration Date: 05/11/2023 Generated for Margie hess/Radha/Traitting on: 08/17/2024 07:13 AM CDT
--- OUTSIDE RECORDS SUMMARY | 2024-08-17 07:13 | XMS_ITS | Clinical Summary ---
Author Organization [facility] [address] [facility] Address [address] [place] [address] Care Team Providers Care Air Box Tester Name Role Phone Stephan Tomas DO Primary Care Provider [phone] Social History Tobacco Use Types Packs/Day Years [...] 2027 Insurance MEDICARE PART A AND B [place] [id number] Care Teams Air Box Tester Relationship Specialty Start Date End Date Stephan Tomas DO [address] [place] [address] PCP - General Family Practice 09/25/18
--- OUTSIDE RECORDS SUMMARY | 2024-08-17 07:13 | XMS_ITS | Encounter Summary ---
Author Organization [facility] Address [address] [facility] [facility] [address] Care Team Providers Care Experimental Rocketsled Mechanic Name Role Phone Michael Hussein MD Primary Care Provider [phone] Encounter Details Date Type Department Care Team (Late st Contact Info) Description 07/25/2024 Results Follow-Up [facility] - Rheumatology [address] [facility], [address] [place] [address] Tuan Poon DO [address] [facility] [address] [place] [address] Social History Tobacco Use Types Packs/Day Years Used Date Smoking Tobacco: Never Smokeless Tobacco: Never Alcohol Use Standard Drinks/Week Comments Not Currently 0 (1 standard drink = 0.6 oz pur e alcohol) Sex and Gender Information Value Date Recorded Sex Assigned at Not on file Legal Sex Male 1:56 PM VACCINATOR Gender Identity Not on file Sexual Orientation [...] Description 12/06/2024 9:00 AM CDT Office Visit [facility] - Rheumatology [address] [facility], [address] [place] [address] Tuan Poon DO [address] [facility] [address] [place] [address] documented as of this encounter Visit Diagnoses Not on filedocumented in this encounter Care Teams Experimental Rocketsled Mechanic Relationship Specialty Start Date End Date Michael Hussein MD [address] [place] [phone] PCP - General Internal Medicine 06/04/21 documented as of this encounter
[2024-08-17 08:03] LABS: Add Urine Microscopic? NO; Appearance Urine Clear (Clear); Basophils Absolute Auto 0.03 K/mm3 (0.00-0.10); Basophils Percent Auto 0.5 % (0.0-1.0); Bilirubin Urine Negative (Negative); Blood Urine Negative (Negative); Color Urine Yellow (Yellow); Eosinophils Absolute Auto 0.17 K/mm3 (0.02-0.50); Eosinophils Percent Auto 2.7 % (1.0-6.0); Glucose Urine UA Negative (Negative); Hematocrit 47.4 % (37.0-46.0); Hemoglobin 15.7 g/dL (12.4-15.3); Immature Granulocyte Absolute 0.06 K/mm3 (0.00-0.00); Ketones Urine Negative (Negative); Leukocyte Esterase Ur Negative (Negative); Lymphocytes Absolute Auto 2.38 K/mm3 (1.10-4.50); Lymphocytes Percent Auto 38.4 % (18.0-42.0); Mean Corpuscular HGB Conc 33.1 g/dL (32-36); Mean Corpuscular Hemoglobin 31.5 pg (27.0-31.0); Mean Platelet Volume 8.6 fl (8.7-11.0); Monocytes Absolute Auto 0.42 K/mm3 (0.10-0.90); Monocytes Percent Auto 6.8 % (2.0-11.0); Neutrophils Absolute Auto 3.14 K/mm3 (1.70-7.20); Neutrophils Percent Auto 50.6 % (50.0-70.0); Nitrate Urine Negative (Negative); Platelet Count Result 265 K/mm3 (150-420); Protein Urine Negative (Negative); Red Blood Count 4.99 M/mm3 (4.70-6.10); Red Cell Distribution Width 13.2 % (11.6-14.4); Specific Grav Ur 1.025 (1.010-1.020); White Blood Count 6.2 K/mm3 (4.8-10.8); pH Urine 5.5 (5.0-8.0)
[2024-08-17 08:13] LABS: Hemoglobin A1C 5.4 % (<5.7)
[2024-08-17 08:22] LABS: Alanine Aminotransferase 17 U/L (6-50); Albumin Level 4.5 g/dL (3.5-5.1); Alkaline Phosphatase 59 U/L (38-126); Anion Gap 6 mmol/L (4-12); Aspartate Amino Transferase 22 U/L (17-59); Bilirubin,Total 1.2 mg/dL (0.2-1.3); Blood Urea Nitrogen 22 mg/dL (9-20); Calcium 9.5 mg/dL (8.4-10.2); Carbon Dioxide 26 mmol/L (22-30); Chloride 105 mmol/L (98-107); Cholesterol 160 mg/dL (0-200); Creatine Kinase 34 U/L (55-170); Estimated Glomerular Filt Rate 48; Glucose 121 mg/dL (65-110); HDL Direct 47 mg/dL; LDL Cholesterol Calculated 93 mg/dL (<130); Osmolality Calculated 288 mOsm/kg (285-295); Potassium 4.5 mmol/L (3.4-5.0); Sodium 137 mmol/L (137-145); Total Protein 6.7 g/dL (6.3-8.2); Triglycerides 100 mg/dL (<150)
[2024-08-17 08:39] LABS: Free T4 Free Thyroxine 1.59 ng/dL (0.78-2.19)
[2024-08-17 08:53] LABS: Prostate Specific Antigen 1.3 ng/mL (< OR = 4.0)
[2024-08-17 09:12] LABS: Vitamin B12 > 1000.0 pg/mL (239-931)
[2024-08-17 09:42] LABS: Free T3 3.96 pg/mL (2.18-3.98)
== END 2024-08-17 07:09 | disposition home or self-care (01) ==
LOC: CHSLAB 07:11
PROVIDERS: PCP Internal Medicine; Visit Provider Internal Medicine
DX: N18.30 Chronic kidney disease, stage 3 unspecified (principal); K21.9 Gastro-esophageal reflux disease without esophagitis; E78.2 Mixed hyperlipidemia; I10 Essential (primary) hypertension; E53.8 Deficiency of other specified B group vitamins; R73.01 Impaired fasting glucose; Z12.5 Encounter for screening for malignant neoplasm of prostate
CPT/HCPCS: 36415; 80053; 80061; 81003; 82550; 82607; 83036; 84153; 84439; 84443; 84481; 85025; G0103

== ENCOUNTER 2024-09-07 07:26 | Outpatient (CLI) | payer MEDICARE, SELFPAY ==
--- NOTE | ~2024-09-07 | US_ITS ---
EXAMINATION: US carotid duplex BI DATE: 09/07/2024 07:58 INDICATION: TIA TECHNIQUE: Grayscale, color Doppler, and pulsed Doppler images of the cervical carotid arteries were obtained. The degree of vessel stenosis is placed in one of the following categories: normal, <50%, 5 0-69%, >=70% but less than near-occlusion, near-occlusion, or total occlusion. Note that percent sten osis relative to normal distal artery lumen diameter is indirectly measured from velocity measurement s as described by Cliff, et al. Radiology 2003; 229:340-346. Notes: Normal: Peak systolic velocity <125 centimeters/sec and no plaque <50%. Peak systolic velocity <125 ( EDV <40; ICA/CCA PSV ratio <2.0; used these factors only a tandem lesions or low cardiac output or co ntralateral disease) 50-69 %: PSV 125-230 (EDV 40-100; ratio 2-4) >= 70% but less than near occlusion: PSV greater than 230 (EDV > 100; ratio> 4.0) Near Occlusion: PSV that is variable; markedly narrowed lumen Occlusion: Absent flow on color/spectral Doppler and no lumen on barksdale scale. COMPARISON: None. FINDINGS: RIGHT: The right common carotid artery (CCA) peak systolic velocity (PSV) is 102 cm/s. The right internal ca rotid artery (ICA) PSV is 78 cm/s. The right ICA end-diastolic velocity (EDV) is 29 cm/s. The right I CA/CCA PSV ratio is 0.76. The external carotid artery (ECA) PSV is 90 cm/s. There is antegrade flow i n the right vertebral artery. LEFT: The left CCA PSV is 109 cm/s. The left ICA PSV is 69 cm/s. The left ICA EDV is 28 cm/s. The left ICA/ CCA PSV ratio is 0.63. The ECA PSV is 86 cm/s. There is antegrade flow in the left vertebral artery. IMPRESSION: 1. Less than 50% stenosis in the right internal carotid artery by sonographic criteria. 2. Less than 50% stenosis in the left internal carotid artery by sonographic criteria. Reviewed, dictated and finalized at location B. IMPRESSION: 1. Less than 50% stenosis in the right internal carotid artery by sonographic heide pereira. 2. Less than 50% stenosis in the left internal carotid artery by sonographic graciela rachel.
--- OUTSIDE RECORDS SUMMARY | 2024-09-07 07:32 | XMS_ITS | Clinical Summary ---
Author Organization [facility] [employer] Address [address] [place] [address] Care Team Providers Care Angle Bender Name Role Phone Michael Hussein MD Primary Care Provider [phone] Source Comments [facility] [employer],non-owned Affiliates and Associated Physician Practices is amultiple site organization consisting of ambulatory clinics and hospital sitesin [place], [place], [place] and [place]. This disclosure is being madepursuant to the Care Everywhere program and may not contain all information available regarding this patient. 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 Rheumatoid arthritis of [facility] with negative rheumatoid factor 05/26/2017 Overview [...] 12/02/2022 Assessment & Plan (06/04/2021 11:10 AM ELECTROENCEPHALOGRAPHIC TECHNOLOGIST): Reviewed potential inherent risks with the continued [...] Encounters Date Type Department Care Team Description 09/05/2024 Telephone [facility] - Rheumatology [address] [place] [address], [address] [place] [address] Tuan Poon DO Erroneous encounter-disregard 08/10/2024 Telephone [facility] - Rheumatology [address] [place] [address], [address] [place] [address] Tuan Poon DO Update 07/25/2024 Results Follow-Up [facility] - Rheumatology [address] [facility] [address], [address] [place] [address] Tuan Poon DO 07/17/2024 Telephone [facility] [address] [place] [address], [address] [place] [address] Tuan Poon DO Update from [...] on file Legal Sex Male 1:56 PM ELECTROENCEPHALOGRAPHIC TECHNOLOGIST Gender Identity Not on file Sexual Orientation [...] Care Team (Late st Contact Info) Description 11/20/2024 9:20 AM CDT Office Visit [facility] - Rheumatology [address], [address] [place] [address] Tuan Poon DO [address] [place] [address] Health Maintenance Due Date Last [...] SCREENING 01/30/2022 01/31/2012 SCREENING FOR DIABETES 11/06/2023 1, 09/25/2018, 09/25/2018, Additional history exists COVID-19 VACCINE ( season) [...] this topic Medical Devices Implanted Type Area Foundry Tender Device Identifier Shelf Expiration Date Model / Serial / Lot Graft Bone Alfs + Dbm 5ml Ptty Implanted:Qty: 1 on 12/20/2017 by Easton Paula DO at [facility] N/A: Spine Lumbar [employer] 04/27/2019 [id number] / / [id number] [place] Set Screw Implanted:Qty: 4 on 12/20/2017 by Easton Paula DO at [facility] N/A: Spine Lumbar [employer] [id number] / / 6.5x50mm Screw Implanted:Qty: 2 on 12/20/2017 by Easton Paula DO at [facility] N/A: Spine Lumbar [employer] [id number] / / 6.5x55mm Screw Implanted:Qty: 1 on 12/20/2017 by Easton Paula DO at [facility] N/A: Spine Lumbar [employer] [id number] / / 6.5x60mm Screw Implanted:Qty: 1 on 12/20/2017 by Easton Paula DO at [facility] N/A: Spine Lumbar [employer] [id number] / / 35mm Flavio Implanted:Qty: 1 on 12/20/2017 by Easton Paula DO at [facility] N/A: Spine Lumbar [employer] [id number] / / 40mm Flavio Implanted:Qty: 1 on 12/20/2017 by Easton Paula DO at [facility] N/A: Spine Lumbar [employer] [id number] / / Procedures Procedure Name Priority Date/Time Associated Diagnosis Comments MRI ELBOW RIGHT WWO CONTRAST Routine 07/21/2024 8:32 AM CDT COMPREHENSIVE METABOLIC PANEL 11/05/2020 3:48 PM CDT HEPATITIS SCREEN ACUTE 3:20 PM ELECTROENCEPHALOGRAPHIC TECHNOLOGIST ENDOSCOPY, COLON, SCREENING Routine 01/31/2012 1:26 PM ELECTROENCEPHALOGRAPHIC TECHNOLOGIST from Last 3 Months or Most Recently [...] approximately 13% higher for people identified as -Gambian. eGFR by MDRD 53(L) > OR = [...] 46 U/L [facility]ST Comment: Test Performed at: [facility] [address] [place] [address] SHEILA PÉREZ DO,MPH 11/05/2020 3:48 PM CDT 11/05/2020 3:49 PM CDT Narendra Spencer MD LAB - CHEMISTRY ORDERABLES Final Result Performing Organization Address City/State/[facility] Co de Phone Number [facility] [address] [place] [address] * HEPATITIS SCREEN ACUTE (02/06/2020 3:20 PM ELECTROENCEPHALOGRAPHIC TECHNOLOGIST) Hepatitis A Virus Antibody IgM NON-REACT LINDA NON-REACT LINDA [facility] Comment: For additional information, please refer to http://Codasystem.Arachno/faq/UQA032 (This link is being provided for informational/ [...] a test for HCV RNA (test code 33159) is suggested. For additional information please refer to http://Codasystem.Arachno/faq/CON35c5 (This link is being provided for informational/ educational purposes only.) Test Performed at: [facility] [address] [place] [address] SHEILA PÉREZ,DO,MPH 02/06/2020 3:20 PM ELECTROENCEPHALOGRAPHIC TECHNOLOGIST 02/06/2020 3:21 PM ELECTROENCEPHALOGRAPHIC TECHNOLOGIST us Narendra Spencer MD LAB - CHEMISTRY ORDERABLES Final Result Performing Organization Address City/[facility]/ZIP Co de Phone Number [facility] [address] [place] [address] * ENDOSCOPY, COLON, SCREENING (01/31/2012 1:26 PM ELECTROENCEPHALOGRAPHIC TECHNOLOGIST) Narrative Transcriptions Amaury Noyola MD - 01/31/2012 1:26 PM CST us Amaury Noyola MD GI PROCEDURE ORDERABLES Final Re sult Performing Organization Address City/[facility]/ZIP Co de Phone Number [facility] ENDOSCOPY from Last 3 Months or Most Recently Relevant to Health Maintenance Insurance MEDICARE MEDICARE [facility] Member Subscriber Plan / Payer ( fective 2017-Present) Name:Jin Godinez Relation to Subscriber:Self Name:Jin Godinez Payer ID:Not on file Group ID:Not on file Type:Commercial Address: [place] [id number] MEDICARE [facility] Member Subscriber Plan / Payer ( fective 2017-Present) Name:Lebron Godinezald Relation to Subscriber:Self Name:GODINEZ JIN CANO Payer ID:Not on file Group ID:[id number] Type:Commercial Address: [place] [phone] MEDICARE AAR [facility] Advance Directives Documents on File Type Date Recorded Patient Embedder Expl anation Adv Directive/Living Will/POA 12/20/2017 Adv Directive/Living Will/POA 09/06/2013 10:31 PM * Full Code (Latest Code Status on File) Date Activated Date Inactivated Comments 12/20/2017 5:02 PM 12/22/2017 1:45 PM * Full Code Date Activated Date Inactivated Comments 09/04/2013 2:46 PM 09/05/2013 6:37 PM Care Teams Angle Bender Relationship Specialty Start Date End Date Michael Hussein MD [address] [place] [address] PCP - General Internal Medicine 06/04/21
--- OUTSIDE RECORDS SUMMARY | 2024-09-07 07:32 | XMS_ITS ---
Author Organization [facility] Address [address] [facility] [address] [place], [place] [address] Care Team Providers Care Rn Picu Name Role Phone Ronald Cristobal Unavailable [phone] Migration, Provider Unavailable Unavailable Allergies Allergen (clinical drug ingredient) Drug/Non Drug Allergy documented on EMR Reaction Allergy Type Onset Date Status HYDROCODONE CP (uncoded) Unknown Allergy Active amoxicillin / clavulanate Augmentin Unknown Drug Allergy Active clindamycin Clindamycin Unknown Drug Allergy Act maritza REASON FOR VISIT [facility] To [facility] Conversion Encounter Medications [...] review and pick correct strength-formula tion from Arcadian Networksspan options. If intended option is not shown, [...] Location Date Provider Diagnosis [facility] [place] [address] [facility] [address] [place], [place] [address] 03/10/2024 Provider Migration ACUTE OTITIS EXTERNA NEC [...] Progress Notes * GODINEZLebronningDOB:1950 (74 yo M)Acc No.[id number]:03/10/2024 Patient: Brian MOSELEY Provider: Veronica claire Migration :1950 A ge:74 Y S ex:Male Date:03/10/2024 Address:[address] [place] [address] Subjective: * Chief Complaints: * 1 . Multum To Medispan Conversion Encounter. * Medical History: * Medications: T aking Amoxicillin 500 MG Capsule 1 cap(s) orally 3 times a day , Taking oxyCODONE HCl 7.5 MG TABLET 1 TAB(S) ORALLY EVERY 6 HOURS , Notes to Pharmacist: *Please review and pick correct strength-formulation from Arcadian [employer]span options. If intended option is not shown, [...] Electronic signature of Prov ider Migration on 09/07/2024 at 07:31 AM CDT Sign off status: Pending * Provider: Veronica claire Migration Date: 05/11/2023 Generated for Margie hess/Radha/Traitting on: 09/07/2024 07:31 AM CDT
--- OUTSIDE RECORDS SUMMARY | 2024-09-07 07:32 | XMS_ITS | Clinical Summary ---
Author Organization [facility] Lydia santos Suzette Address [address] [place] [address] Care Team Providers Care Judge Clerk Name Role Phone Stephan Tomas DO Primary Care Provider [phone] Social History Tobacco Use Types Packs/Day Years Used Date Smoking Tobacco: Never Assessed Sex and Gender Information Value Date Recorded Sex Assigned at Not on file Legal Sex Male 10:49 AM CDT Gender Identity Not on file Sexual Orientation Not on file Plan of Treatment Upcoming Encounters Date Type Department Care Team (Late st Contact Info) Description 09/24/2024 3:00 PM CDT Office Visit [facility] Oncology and Hematology - [place] [address] [address] [place] [address] [place] [address] [address] [place] [address] Health Maintenance Due Date Last Done Comments [...] 2027 Insurance MEDICARE PART A AND B [employer] [facility] [id number] Member Subscriber Plan / Payer (Ef fective 2020-Present) Name:Brian Spaulding Relation to Subscriber:Self Name:Brian Spaulding Payer ID:[id number] (NAIC) Group ID:Not on file Type:Supplemental Address: [place] [id number] MEDICARE PART A AND B [employer] [facility] [id number] Member Subscriber Plan / Payer (Ef fective 2024-Present) Name:Brian Spaulding Relation to Subscriber:Self Name:Favianso Brian Payer ID:[id number] (NAIC) Group ID:Not on file Type:Supplemental Address: [place] [id number] [place] [id number] Care Teams Judge Clerk Relationship Specialty Start Date End Date Stephan Tomas DO [address] [place] [address], [place] [phone] PCP - General Family Practice 09/25/18
--- OUTSIDE RECORDS SUMMARY | 2024-09-07 07:32 | XMS_ITS | Encounter Summary ---
Author Organization [facility] Address [address] [place] [address] Care Team Providers Care Supervisor Major Appliance Assembly Name Role Phone Michael Hussein MD Primary Care Provider [phone] Encounter Details Date Type Department Care Team (Late st Contact Info) Description 07/25/2024 Results Follow-Up [facility] - Rheumatology [address] [facility], [address] [place] [address] Tuan Poon DO [address] [place] [address] Social History Tobacco Use Types Packs/Day Years Used Date Smoking Tobacco: Never Smokeless Tobacco: Never Alcohol Use Standard Drinks/Week Comments Not Currently 0 (1 standard drink = 0.6 oz pur e alcohol) Sex and Gender Information Value Date Recorded Sex Assigned at Not on file Legal Sex Male 1:56 PM 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 SERVICE TECHNICIAN Gender Identity Not on file Sexual Orientation [...] Entry Date Author No 12/20/2017 5:00 PM LEOT Andrew Stewart RN documented in this encounter Plan of Treatment Upcoming Encounters Date Type Department Care Team (Late st Contact Info) Description 11/20/2024 9:20 AM CDT Office Visit [facility] - Rheumatology [address] [facility], [address] [place] [address] Tuan Poon DO [address] [place] [address] documented as of this encounter Visit Diagnoses Not on filedocumented in this encounter Care Teams Supervisor Major Appliance Assembly Relationship Specialty Start Date End Date Michael Hussein MD [address] [place] [phone] PCP - General Internal Medicine 06/04/21 documented as of this encounter
--- OUTSIDE RECORDS SUMMARY | 2024-09-07 07:32 | XMS_ITS | Patient Health Record ---
Author Organization [facility] Address [address] [facility] [address] [place], [place] [address] Care Team Providers Care Tin Worker Name Role Phone Ronald Cristobal Unavailable [phone] Migration, Provider Unavailable Unavailable Allergies Allergen (clinical [...] review and pick correct strength-formula tion from ozukean options. If intended option is not shown, [...] Status Risk Notes Problem Acute otitis externa (51508182) ACUTE OTITIS EXTERNA NEC (380.22) Active confirmed lt Problem Chronic infection of sinus (20133780) Chronic infection of sinus NOS (473.9) Active confirmed Problem Otalgia NOS (388.70) Active confirmed lt Encounters Encounter Location Date Provider Diagnosis [facility] [address] [facility] [address] [place], [place] [phone] 03/10/2024 Provider Migration ACUTE OTITIS EXTERNA NEC 380.22 Assessments Encounter Date Diagnosis (ICD Code) Assessment Notes Treatment Notes Treatment Clinical Notes Section Notes 03/10/2024 ACUTE OTITIS EXTERNA NEC (ICD9-CM - 380.22) lt Plan Of Treatment No Information Insurance Providers Payer Name Payer Address Payer Phone Subscriber Number Group Number Insured Name Patient Relationship to Insured Coverage Start Date Coverage End Date [facility]e [facility] [address] [address] [place] [address] [id number] Brian Abarca Self - patient is the [...]
== END 2024-09-07 07:27 | disposition home or self-care (01) ==
LOC: CHSIMG 07:29
PROVIDERS: PCP Internal Medicine; Visit Provider Internal Medicine
DX: I65.23 Occlusion and stenosis of bilateral carotid arteries (principal)
CPT/HCPCS: 93880

== ENCOUNTER 2024-09-08 08:27 | Outpatient (CLI) | payer MEDICARE, SELFPAY ==
--- NOTE | ~2024-09-08 | MR_ITS ---
MRI of the brain Clinical History: Confusion Technique: Axial and sagittal T1-weighted images were acquired. These were followed by axial T2-weigh lizabeth, diffusion weighted, gradient, and FLAIR images. Findings: No signal abnormality seen in the brain parenchyma. No acute infarct, intracranial hemorrha ge, or mass lesion. Ventricles and subarachnoid spaces are minimally prominent. Orbits are unremarkable. Paranasal sinuse s and mastoid air is are clear. Major intracranial flow voids are intact. Sagittal midline structures are intact. IMPRESSION: No significant abnormality seen. Reviewed, dictated and finalized at location M.
--- OUTSIDE RECORDS SUMMARY | 2024-09-08 08:31 | XMS_ITS ---
Author Organization [facility] Address [address] [facility] [address] [place], [place] [address] Care Team Providers Care Plater Printed Circuit Board Panels Name Role Phone Ronald Cristobal Unavailable [phone] Migration, Provider Unavailable Unavailable Allergies Allergen (clinical drug ingredient) Drug/Non Drug Allergy documented on EMR Reaction Allergy Type Onset Date Status HYDROCODONE CP (uncoded) Unknown Allergy Active amoxicillin / clavulanate Augmentin Unknown Drug Allergy Active clindamycin Clindamycin Unknown Drug Allergy Act maritza REASON FOR VISIT [facility] To [facility] Conversion Encounter Medications Medication SIG [...] review and pick correct strength-formula tion from Clearpath Immigr[employer]pan options. If intended option is not shown, [...] Location Date Provider Diagnosis [facility] [place] [address] [facility] [address] [place], [place] [address] 03/10/2024 Provider Migration ACUTE OTITIS EXTERNA NEC [...] Progress Notes * GODINEZLebronningDOB:1950 (74 yo M)Acc No.[id number]:03/10/2024 Patient: Brian MOSELEY Provider: Veronica claire Migration :1950 A ge:74 Y S ex:Male Date:03/10/2024 Address:[address] [place] [address] Subjective: * Chief Complaints: * 1 . Multum To Medispan Conversion Encounter. * Medical History: * Medications: T aking Amoxicillin 500 MG Capsule 1 cap(s) orally 3 times a day , Taking oxyCODONE HCl 7.5 MG TABLET 1 TAB(S) ORALLY EVERY 6 HOURS , Notes to Pharmacist: *Please review and pick correct strength-formulation from Clearpath Immigr[employer]pan options. If intended option is not shown, [...] Electronic signature of Prov ider Migration on 09/08/2024 at 08:30 AM CDT Sign off status: Pending * Provider: Veronica claire Migration Date: 05/11/2023 Generated for Margie hess/Radha/Traitting on: 09/08/2024 08:30 AM CDT
--- OUTSIDE RECORDS SUMMARY | 2024-09-08 08:31 | XMS_ITS | Encounter Summary ---
Author Organization [facility] Address [address] [place] [address] Care Team Providers Care Cast Iron Dipper Name Role Phone Michael Hussein MD Primary Care Provider [phone] Encounter Details Date Type Department Care Team (Late st Contact Info) Description 07/25/2024 Results Follow-Up [facility] - Rheumatology [address], [address] [place] [address] Tuan Poon DO [address] [place] [address] Social History Tobacco Use Types Packs/Day Years Used Date Smoking Tobacco: Never Smokeless Tobacco: Never Alcohol Use Standard Drinks/Week Comments Not Currently 0 (1 standard drink = 0.6 oz pur e alcohol) Sex and Gender Information Value Date Recorded Sex Assigned at Not on file Legal Sex Male 1:56 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 BUYER Gender Identity Not on file Sexual Orientation [...] Description 11/20/2024 9:20 AM CDT Office Visit [facility] - Rheumatology [address], [address] [place] [address] Tuan Poon DO [address] [facility] [address] [place] [address] documented as of this encounter Visit Diagnoses Not on filedocumented in this encounter Care Teams Cast Iron Dipper Relationship Specialty Start Date End Date Michael Hussein MD [address] [place] [phone] PCP - General Internal Medicine 06/04/21 documented as of this encounter
--- OUTSIDE RECORDS SUMMARY | 2024-09-08 08:31 | XMS_ITS | Patient Health Record ---
Author Organization [facility] Address [address] [facility] [address] [place], [place] [address] Care Team Providers Care Driver Recruiter Name Role Phone Ronald Cristobal Unavailable [phone] Migration, Provider Unavailable Unavailable Allergies Allergen (clinical [...] review and pick correct strength-formula tion from Simpleviewan options. If intended option is not shown, [...] Status Risk Notes Problem Acute otitis externa (43753782) ACUTE OTITIS EXTERNA NEC (380.22) Active confirmed lt Problem Chronic infection of sinus (82680495) Chronic infection of sinus NOS (473.9) Active confirmed Problem Otalgia NOS (388.70) Active confirmed lt Encounters Encounter Location Date Provider Diagnosis [facility] [address] [facility] [address] [place], [place] [address] 03/10/2024 Provider Migration ACUTE OTITIS EXTERNA NEC 380.22 Assessments Encounter Date Diagnosis (ICD Code) Assessment Notes Treatment Notes Treatment Clinical Notes Section Notes 03/10/2024 ACUTE OTITIS EXTERNA NEC (ICD9-CM - 380.22) lt Plan Of Treatment No Information Insurance Providers Payer Name Payer Address Payer Phone Subscriber Number Group Number Insured Name Patient Relationship to Insured Coverage Start Date Coverage End Date [facility]e [facility] [address] [place] [address] [id number] Brian Abarca Self - patient is the [...]
--- OUTSIDE RECORDS SUMMARY | 2024-09-08 08:31 | XMS_ITS | Clinical Summary ---
Author Organization [facility] [employer] Address [address] [facility] [place] [address] Care Team Providers Care Automobile Engine Assembler Name Role Phone Michael Hussein MD Primary Care Provider [phone] [facility] [employer],non-owned Affiliates and Associated Physician Practices is amultiple site organization consisting of ambulatory clinics and hospital sitesin [place], [place], [place] and [place]. This disclosure is being madepursuant to the Care Everywhere program and may not contain all information available regarding this patient. Last updated 17.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 Rheumatoid arthritis of [facility] sites with negative rheumatoid factor [...] 12/02/2022 Assessment & Plan (06/04/2021 11:10 AM ELECTRIC METER INSTALLER): Reviewed potential inherent risks with the continued [...] Type Department Care Team Description 09/05/2024 Telephone [facility] - Rheumatology [address] [place] [address], [address] [place] [address] Tuan Poon DO Erroneous encounter-disregard 08/10/2024 Telephone [facility] - Rheumatology [address] [place] [address], [address] [place] [address] Tuan Poon DO Update 07/25/2024 Results Follow-Up [facility] - Rheumatology [address] [facility], [address] [place] [address] Tuan Poon DO 07/17/2024 Telephone [facility] - Rheumatology [address] [place] [address], [address] [place] [address] Tuan Poon DO Update from [...] on file Legal Sex Male 1:56 PM ELECTRIC METER INSTALLER Gender Identity Not on file Sexual Orientation [...] Description 11/20/2024 9:20 AM CDT Office Visit [facility] - Rheumatology [address] [facility], [address] [place] [address] Tuan Poon DO [address] [place] [address] Health Maintenance Due Date Last [...] this topic Medical Devices Implanted Type Area Tool Honing Machine Set Up Operator Device Identifier Shelf Expiration Date Model / Serial / Lot Graft Bone Alfs + Dbm 5ml Ptty Implanted:Qty: 1 on 12/20/2017 by Easton Paula DO at [facility] N/A: Spine Lumbar Allosource 04/27/2019 [id number] / / [id number] [place] Set Screw Implanted:Qty: 4 on 12/20/2017 by Easton Paula DO at [facility] N/A: Spine Lumbar [employer] [id number] / / 6.5x50mm Screw Implanted:Qty: 2 on 12/20/2017 by Easton Paula DO at [facility] N/A: Spine Lumbar [employer] [id number] / / 6.5x55mm Screw Implanted:Qty: 1 on 12/20/2017 by Easton Paula DO at [facility] N/A: Spine Lumbar [employer] [id number] / / 6.5x60mm Screw Implanted:Qty: 1 on 12/20/2017 by Easton Paula DO at [facility] N/A: Spine Lumbar [employer] [id number] / / 35mm Flavio Implanted:Qty: 1 on 12/20/2017 by Easton Paula DO at [facility] N/A: Spine Lumbar [employer] app2you [id number] / / 40mm Flavio Implanted:Qty: 1 on 12/20/2017 by Easton Paula DO at [facility] N/A: Spine Lumbar [employer] app2you [id number] / / Procedures Procedure Name Priority Date/Time Associated Diagnosis Comments MRI ELBOW RIGHT WWO CONTRAST Routine 07/21/2024 8:32 AM CDT COMPREHENSIVE METABOLIC PANEL 11/05/2020 3:48 PM CDT HEPATITIS SCREEN ACUTE 3:20 PM ELECTRIC METER INSTALLER ENDOSCOPY, COLON, SCREENING Routine 01/31/2012 1:26 PM ELECTRIC METER INSTALLER from Last 3 Months or Most Recently [...] approximately 13% higher for people identified as -[place]. eGFR by MDRD 53(L) > OR [...] 46 U/L QUEST Comment: Test Performed at: [facility] [address] [place] [address] SHEILA PÉREZ DO,MPH 11/05/2020 3:48 PM CDT 11/05/2020 3:49 PM CDT Narendra Spencer MD LAB - CHEMISTRY ORDERABLES Final Result Performing Organization Address City/State/[facility] Co de Phone Number [facility] [address] [place] [address] * HEPATITIS SCREEN ACUTE (02/06/2020 3:20 PM ELECTRIC METER INSTALLER) Hepatitis A Virus Antibody IgM NON-REACT LINDA NON-REACT LINDA [facility] Comment: For additional information, please refer to http://[employer].McAfee/faq/QAM566 (This link is being provided for informational/ [...] a test for HCV RNA (test code 03572) is suggested. For additional information please refer to http://[employer].McAfee/faq/GTW18e6 (This link is being provided for informational/ educational purposes only.) Test Performed at: [facility] [id number] [place] [address] SHEILA PÉREZ,DO,MPH 02/06/2020 3:20 PM ELECTRIC METER INSTALLER 02/06/2020 3:21 PM ELECTRIC METER INSTALLER us Narendra Spencer MD LAB - CHEMISTRY ORDERABLES Final Result Performing Organization Address City/[facility]/ZIP Co de Phone Number [facility] [address] [place] [address] * ENDOSCOPY, COLON, SCREENING (01/31/2012 1:26 PM ELECTRIC METER INSTALLER) Narrative Transcriptions Amaury Noyola MD - 01/31/2012 1:26 PM CST us Amaury oNyola MD GI PROCEDURE ORDERABLES Final Re sult Performing Organization Address City/[facility]/ZIP Co de Phone Number [facility] ENDOSCOPY from Last 3 Months or Most Recently Relevant to Health Maintenance Insurance MEDICARE MEDICARE [facility] Member Subscriber Plan / Payer ( fective 2017-Present) Name:Jin Godinez Relation to Subscriber:Self Name:Jin Godinez Payer ID:Not on file Group ID:Not on file Type:Commercial Address: [place] [phone] MEDICARE [facility] Member Subscriber Plan / Payer ( fective 2017-Present) Name:Lebron Godinezald Relation to Subscriber:Self Name:GODINEZ JIN CANO Payer ID:Not on file Group ID:[id number] Type:Commercial Address: [place] [phone] [facility] Advance Directives Documents on File Type Date Recorded Patient Public Health Aide Expl anation Adv Directive/Living Will/POA 12/20/2017 Adv Directive/Living Will/POA 09/06/2013 10:31 PM * Full Code (Latest Code Status on File) Date Activated Date Inactivated Comments 12/20/2017 5:02 PM 12/22/2017 1:45 PM * Full Code Date Activated Date Inactivated Comments 09/04/2013 2:46 PM 09/05/2013 6:37 PM Care Teams Automobile Engine Assembler Relationship Specialty Start Date End Date Michael Hussein MD [address] [place] [address] PCP - General Internal Medicine 06/04/21
== END 2024-09-08 08:28 | disposition home or self-care (01) ==
LOC: CHSIMG 08:28
PROVIDERS: PCP Internal Medicine; Visit Provider Internal Medicine
DX: G45.9 Transient cerebral ischemic attack, unspecified (principal)
CPT/HCPCS: 70551

== ENCOUNTER 2024-09-13 12:48 | Outpatient (CLI) | payer MEDICARE, SELFPAY ==
--- OUTSIDE RECORDS SUMMARY | 2024-09-13 13:09 | XMS_ITS | Clinical Summary ---
Author Organization [facility] [employer] Address [address] [facility] [place] [address] Care Team Providers Care Credit Reference Clerk Name Role Phone Michael Hussein MD Primary Care Provider [phone] Source Comments [facility] [employer],non-owned Affiliates and Associated Physician Practices is amultiple site organization consisting of ambulatory clinics and hospital sitesin [place], [place] and [place]. This disclosure is being madepursuant to the Care Everywhere program and may not contain all information available regarding this patient. 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 Rheumatoid arthritis of [facility] sites with negative rheumatoid factor 05/26/2017 [...] 12/02/2022 Assessment & Plan (06/04/2021 11:10 AM SCISSORS GRINDER): Reviewed potential inherent risks with the continued [...] Type Department Care Team Description 09/05/2024 Telephone [facility] - Rheumatology [address] [place] [address], [address] [place] [address] Tuan Poon DO Erroneous encounter-disregard 08/10/2024 Telephone [facility] - Rheumatology [address] [place] [address], [address] [place] [address] Tuan Poon DO Update 07/25/2024 Results Follow-Up [facility] - Rheumatology [address] [facility], [address] [place] [address] Tuan Poon DO 07/17/2024 Telephone [facility] - Rheumatology [address] [place] [address], [address] [place] [address] Tuan Poon DO Update from [...] on file Legal Sex Male 1:56 PM SCISSORS GRINDER Gender Identity Not on file Sexual Orientation [...] Description 11/20/2024 9:20 AM CDT Office Visit [facility] - Rheumatology [address] [facility], [address] [place] [address] Tuan Poon DO [address] [place] [address] Health Maintenance Due Date Last [...] this topic Medical Devices Implanted Type Area Traffic Rate Computer Device Identifier Shelf Expiration Date Model / Serial / Lot Graft Bone Alfs + Dbm 5ml Ptty Implanted:Qty: 1 on 12/20/2017 by Easton Paula DO at [facility] N/A: Spine Lumbar [employer]ource 04/27/2019 [id number] / / [id number] [place] Set Screw Implanted:Qty: 4 on 12/20/2017 by Easton Paula DO at [facility] N/A: Spine Lumbar [employer] [id number] / / 6.5x50mm Screw Implanted:Qty: 2 on 12/20/2017 by Easton Paula DO at [facility] N/A: Spine Lumbar [employer] [id number] / / 6.5x55mm Screw Implanted:Qty: 1 on 12/20/2017 by Easton Paula DO at [facility] N/A: Spine Lumbar [employer] [id number] / / 6.5x60mm Screw Implanted:Qty: 1 on 12/20/2017 by Easton Paula DO at [facility] N/A: Spine Lumbar [employer] [id number] / / 35mm Flavio Implanted:Qty: 1 on 12/20/2017 by Easton Paula DO at [facility] N/A: Spine Lumbar [employer] Medical Complix [id number] / / 40mm Flavio Implanted:Qty: 1 on 12/20/2017 by Easton Paula DO at [facility] N/A: Spine Lumbar [employer] [id number] / / Procedures Procedure Name Priority Date/Time Associated Diagnosis Comments MRI ELBOW RIGHT WWO CONTRAST Routine 07/21/2024 8:32 AM CDT COMPREHENSIVE METABOLIC PANEL 11/05/2020 3:48 PM CDT HEPATITIS SCREEN ACUTE 3:20 PM SCISSORS GRINDER ENDOSCOPY, COLON, SCREENING Routine 01/31/2012 1:26 PM SCISSORS GRINDER from Last 3 Months or Most Recently [...] approximately 13% higher for people identified as -Tajik. eGFR by MDRD 53(L) > OR = [...] 46 U/L [facility]ST Comment: Test Performed at: [facility] [address] [place] [address] SHEILA PÉREZ DO,MPH 11/05/2020 3:48 PM CDT 11/05/2020 3:49 PM CDT Narendra Spencer MD LAB - CHEMISTRY ORDERABLES Final Result Performing Organization Address City/State/[facility] Co de Phone Number [facility] [address] [place] [address] * HEPATITIS SCREEN ACUTE (02/06/2020 3:20 PM SCISSORS GRINDER) Hepatitis A Virus Antibody IgM NON-REACT LINDA NON-REACT LINDA [facility] Comment: For additional information, please refer to http://[employer].ShotClip/faq/TNH808 (This link is being provided for informational/ [...] a test for HCV RNA (test code 01850) is suggested. For additional information please refer to http://[employer].ShotClip/faq/IDU68r2 (This link is being provided for informational/ educational purposes only.) Test Performed at: [facility] [address] [place] [address] SHEILA PÉREZ,DO,MPH 02/06/2020 3:20 PM SCISSORS GRINDER 02/06/2020 3:21 PM SCISSORS GRINDER us Narendra Spencer MD LAB - CHEMISTRY ORDERABLES Final Result Performing Organization Address City/[facility]/ZIP Co de Phone Number [facility] [address] [place] [address] * ENDOSCOPY, COLON, SCREENING (01/31/2012 1:26 PM SCISSORS GRINDER) Narrative Transcriptions Amaury Noyola MD - 01/31/2012 1:26 PM CST us Amaury Noyola MD GI PROCEDURE ORDERABLES Final Re sult Performing Organization Address City/[facility]/ZIP Co de Phone Number [facility] ENDOSCOPY from Last 3 Months or Most Recently Relevant to Health Maintenance Insurance MEDICARE MEDICARE [facility] Member Subscriber Plan / Payer ( fective 2017-Present) Name:Jin Godinez Relation to Subscriber:Self Name:Jin Godinez Payer ID:Not on file Group ID:Not on file Type:Commercial Address: [place] [phone] MEDICARE [facility] Member Subscriber Plan / Payer ( fective 2017-Present) Name:Lebron Godinezald Relation to Subscriber:Self Name:GODINEZ JIN CANO Payer ID:Not on file Group ID:[id number] Type:Commercial Address: [place] [phone] MEDICARE AAR [facility] Advance Directives Documents on File Type Date Recorded Patient Back Hoe Machine Operator Expl anation Adv Directive/Living Will/POA 12/20/2017 Adv Directive/Living Will/POA 09/06/2013 10:31 PM * Full Code (Latest Code Status on File) Date Activated Date Inactivated Comments 12/20/2017 5:02 PM 12/22/2017 1:45 PM * Full Code Date Activated Date Inactivated Comments 09/04/2013 2:46 PM 09/05/2013 6:37 PM Care Teams Credit Reference Clerk Relationship Specialty Start Date End Date Michael Hussein MD [address] [place] [address] PCP - General Internal Medicine 06/04/21
--- OUTSIDE RECORDS SUMMARY | 2024-09-13 13:09 | XMS_ITS | Patient Health Record ---
Author Organization [facility] Address [address] [facility] [address] [place], [place] [address] Care Team Providers Care Rating Specialist Name Role Phone Ronald Cristobal Unavailable [phone] Migration, Provider Unavailable Unavailable Allergies Allergen (clinical [...] review and pick correct strength-formula tion from Gateshopan options. If intended option is not shown, [...] Status Risk Notes Problem Acute otitis externa (04397929) ACUTE OTITIS EXTERNA NEC (380.22) Active confirmed lt Problem Chronic infection of sinus (31225715) Chronic infection of sinus NOS (473.9) Active confirmed Problem Otalgia NOS (388.70) Active confirmed lt Encounters Encounter Location Date Provider Diagnosis [facility] [address] [facility] [address] [place], [place] [address] 03/10/2024 Provider Migration ACUTE OTITIS EXTERNA NEC 380.22 Assessments Encounter Date Diagnosis (ICD Code) Assessment Notes Treatment Notes Treatment Clinical Notes Section Notes 03/10/2024 ACUTE OTITIS EXTERNA NEC (ICD9-CM - 380.22) lt Plan Of Treatment No Information Insurance Providers Payer Name Payer Address Payer Phone Subscriber Number Group Number Insured Name Patient Relationship to Insured Coverage Start Date Coverage End Date [facility] [address] [place] [address] [id number] Brian Abarca Self - patient is the [...]
--- OUTSIDE RECORDS SUMMARY | 2024-09-13 13:09 | XMS_ITS ---
Author Organization [facility] Address [address] [facility] [address] [place], [place] [address] Care Team Providers Care Special Service Officer Name Role Phone Ronald Cristobal Unavailable [phone] Migration, Provider Unavailable Unavailable Allergies Allergen (clinical drug ingredient) Drug/Non Drug Allergy documented on EMR Reaction Allergy Type Onset Date Status HYDROCODONE CP (uncoded) Unknown Allergy Active amoxicillin / clavulanate Augmentin Unknown Drug Allergy Active clindamycin Clindamycin Unknown Drug Allergy Act maritza REASON FOR VISIT [facility] Conversion Encounter Medications Medication SIG (Take, Route, [...] review and pick correct strength-formula tion from Groupize.comspan options. If intended option is not shown, [...] Location Date Provider Diagnosis [facility] [place] [address] [facility] [address] [place], [place] [address] 03/10/2024 Provider Migration ACUTE OTITIS EXTERNA NEC [...] Progress Notes * GODINEZLebronningDOB:1950 (74 yo M)Acc No.[id number]:03/10/2024 Patient: Brian MOSELEY Provider: Veronica claire Migration :1950 A ge:74 Y S ex:Male Date:03/10/2024 Address:[address] [place] [address] Subjective: * Chief Complaints: * 1 . Multum To Medispan Conversion Encounter. * Medical History: * Medications: T aking Amoxicillin 500 MG Capsule 1 cap(s) orally 3 times a day , Taking oxyCODONE HCl 7.5 MG TABLET 1 TAB(S) ORALLY EVERY 6 HOURS , Notes to Pharmacist: *Please review and pick correct strength-formulation from [email or web address].comspan options. If intended option is not shown, [...] N otes :lt Plan: * Treatment: * Images: * Electronic signature of Prov ider Migration on 09/13/2024 at 01:08 PM CDT Sign off status: Pending * Provider: Veronica claire Migration Date: 05/11/2023 Generated for Margie hess/Radha/Traitting on: 09/13/2024 01:08 PM CDT
--- OUTSIDE RECORDS SUMMARY | 2024-09-13 13:09 | XMS_ITS | Clinical Summary ---
Author Organization [facility]os [facility] Address [address] [place] [address] Care Team Providers Care Food Technology Teacher Name Role Phone Stephan Tomas DO Primary Care Provider [phone] Social History Tobacco Use Types Packs/Day Years Used Date Smoking Tobacco: Never Assessed Sex and Gender Information Value Date Recorded Sex Assigned at Not on file Legal Sex Male 10:49 AM CDT Gender Identity Not on file Sexual Orientation Not on file Plan of Treatment Upcoming Encounters Date Type Department Care Team (Late st Contact Info) Description 09/24/2024 3:00 PM CDT Office Visit [facility] Oncology and Hematology - [place] [address] [address] [place] [address] [place] [address] [address] [place] [address] Health Maintenance Due Date Last [...] 2027 Insurance MEDICARE PART A AND B [email or web address] [facility] [id number] Member Subscriber Plan / Payer (Ef fective 2020-Present) Name:Brian Spaulding Relation to Subscriber:Self Name:Brian Spaulding Payer ID:[id number] (NAIC) Group ID:Not on file Type:Supplemental Address: [place] [id number] MEDICARE PART A AND B [email or web address] [facility] [id number] Member Subscriber Plan / Payer (Ef fective 2024-Present) Name:Brian Spaulding Relation to Subscriber:Self Name:Favianso Brian Payer ID:[id number] (NAIC) Group ID:Not on file Type:Supplemental Address: [place] [id number] [place] [phone] Care Teams Food Technology Teacher Relationship Specialty Start Date End Date Stephan Tomas DO [address] [place] [address], [place] [id number] PCP - General Family Practice 09/25/18
--- OUTSIDE RECORDS SUMMARY | 2024-09-13 13:09 | XMS_ITS | Encounter Summary ---
Author Organization [facility] Address [address] [facility] [place] [address] Care Team Providers Care Head Of Store Operations Name Role Phone Michael Hussein MD Primary Care Provider [phone] Encounter Details Date Type Department Care Team (Late st Contact Info) Description 07/25/2024 Results Follow-Up [facility] - Rheumatology [address] [facility], [address] [place] [address] Tuan Poon DO [address] [facility] [address] [place] [address] Social History Tobacco Use Types Packs/Day Years Used Date Smoking Tobacco: Never Smokeless Tobacco: Never Alcohol Use Standard Drinks/Week Comments Not Currently 0 (1 standard drink = 0.6 oz pur e alcohol) Sex and Gender Information Value Date Recorded Sex Assigned at Not on file Legal Sex Male 1:56 PM INFRASTRUCTURE TECH Gender Identity Not on file Sexual Orientation [...] Description 11/20/2024 9:20 AM CDT Office Visit [facility] - Rheumatology [address] [facility], [address] [place] [address] Tuan Poon DO [address] [facility] [address] [place] [address] documented as of this encounter Visit Diagnoses Not on filedocumented in this encounter Care Teams Head Of Store Operations Relationship Specialty Start Date End Date Michael Hussein MD [address] [place] [address] PCP - General Internal Medicine 06/04/21 documented as of this encounter
[2024-09-13 13:15] VITALS: BP 122/74; PULSE 72; RESP 14; O2SAT 96
[2024-09-13] MEDS: ABATACEPT IVPB (13:15)
[2024-09-13] MEDS: SODIUM CHLORIDE 0.9% IVPB (13:15)
[2024-09-13] MEDS: MALTOSE IVPB (13:15)
[2024-09-13 14:20] VITALS: BP 116/74; PULSE 74; RESP 16; O2SAT 98
--- NOTE | 2024-09-13 14:22 | PC.NURSE ---
1350 Orencia infusion completed. Patient stood up to to use bathroom/ reported some dizziness. Sat back down for few minutes. 1410 Denies dizziness. Able to ambulate to bathroom and back. Vital signs stable. States, I feel much better. 1420 Assisted to exit of hospital. Able to ambulate without difficulty.
== END 2024-09-13 12:49 | disposition home or self-care (01) ==
PROVIDERS: PCP Internal Medicine; Visit Provider Internal Medicine Rheumatology
DX: M06.9 Rheumatoid arthritis, unspecified (principal)
CPT/HCPCS: 96365; J0129

== ENCOUNTER 2024-09-27 08:26 | Outpatient (CLI) | payer MEDICARE, SELFPAY ==
--- NOTE | ~2024-09-27 | CT_ITS ---
EXAMINATION: CT soft tissue neck chest w DATE: 09/27/2024 10:00 INDICATION: Lung nodule. Cancer of cheek. TECHNIQUE: Computed tomography (CT) of the neck and chest was performed with 75 mL Omnipaque-350 intr avenous contrast. Automated exposure control and iterative reconstruction technique were employed. Th e dose-length product was 1076.86 mGy-cm. COMPARISON: Chest CT dated 07/18/2024 FINDINGS: Neck: Changes of bilateral intraocular lens replacement. Visualized orbits are otherwise unremarkable.. Mil d mucosal thickening the right maxillary sinus. Mastoid air cells and middle ear cavities are clear. Submandibular and parotid glands are symmetric. Thyroid gland is unremarkable. There are scattered no rmal-sized lymph nodes in the neck, no lymphadenopathy. No masses identified. Nonhemodynamically sig nificant atherosclerotic calcifications at the bilateral carotid bulbs. Airway is unremarkable with n ormal epiglottis and aryepiglottic folds. Prevertebral soft tissues are unremarkable. Moderate to sev ere cervical spondylosis. Chest: There are few small calcified pulmonary nodules consistent with old granulomatous disease. No signifi cant interval change in a 10 x 9 mm spiculated nodule with central calcific density in the superior s egment of the right lower lobe also consistent with old granulomatous disease. Stable appearance of m ild bibasilar atelectasis in the lingula and left and right lower lobes. No new or enlarging pulmonar y nodules, pneumonia, pulmonary edema or pleural effusion. Heart size is normal. Atherosclerotic eryn nary artery calcific location. No pericardial effusion. Thoracic aorta is normal in caliber with no d issection. No pathologically enlarged thoracic lymphadenopathy. Cholecystectomy clips the gallbladder fossa. Mild thoracic spondylosis with bridging osteophytes at multiple levels consistent with diffus e idiopathic skeletal hyperostosis (DISH). IMPRESSION: 1. Unremarkable CT of the neck with no abnormal masses or pathologically enlarged cervical lymphadeno stephie. 2. No change in a 10 x 8 mm spiculated right upper lobe nodule which demonstrates some calcification most consistent with old granulomatous disease. No new or enlarging pulmonary nodules identified. Reviewed, dictated and finalized at location A. IMPRESSION: 1. Unremarkable CT of the neck with no abnormal masses or pathologically enlarg ed cervical lymphadenopathy. 2. No change in a 10 x 8 mm spiculated right upper lobe nodule which demonstrat es some calcification most consistent with old granulomatous disease. No new or enlarging pulmonary nodules identified.
--- OUTSIDE RECORDS SUMMARY | 2024-09-27 08:30 | XMS_ITS | Patient Health Record ---
Author Organization [facility] Address [address] [facility] [address] [place], [place] [address] Care Team Providers Care Production Administrative Assistant Name Role Phone Ronald Cristobal Unavailable [phone] Migration, Provider Unavailable Unavailable Allergies Allergen (clinical [...] review and pick correct strength-formula tion from [employer] options. If intended option is not shown, [...] Status Risk Notes Problem Acute otitis externa (32055861) ACUTE OTITIS EXTERNA NEC (380.22) Active confirmed lt Problem Chronic infection of sinus (37999621) Chronic infection of sinus NOS (473.9) Active confirmed Problem Otalgia NOS (388.70) Active confirmed lt Encounters Encounter Location Date Provider Diagnosis [facility] [place] [address] [facility] [address] [place], [place] [address] 03/10/2024 Provider Migration ACUTE OTITIS EXTERNA NEC 380.22 Assessments Encounter Date Diagnosis (ICD Code) Assessment Notes Treatment Notes Treatment Clinical Notes Section Notes 03/10/2024 ACUTE OTITIS EXTERNA NEC (ICD9-CM - 380.22) lt Plan Of Treatment No Information Insurance Providers Payer Name Payer Address Payer Phone Subscriber Number Group Number Insured Name Patient Relationship to Insured Coverage Start Date Coverage End Date [facility] [address] [place] [address] [id number] Brian Abarca Self - patient is the [...]
--- OUTSIDE RECORDS SUMMARY | 2024-09-27 08:30 | XMS_ITS | Clinical Summary ---
Author Organization [facility] danielle [facility] Address [address] [place] [address] Care Team Providers Care Senior Datastage Developer Name Role Phone Stephan Tomas Primary Care Provider [phone] Allergies Active Allergy Reactions Criticality Noted Date Comments Bupropion Shortness of Breath/Wheezing,Swe lling High 06/09/2020 Clindamycin Diarrhea Low 09/04/2013 n/v Doxycycline Other (See Comments) Medium 06/01/2023 Shuts down system Fentanyl Other (See Comments),Hallucina tion Medium 07/28/2020 Per patient Gabapentin Other (See Comments) Low 06/01/2023 Uncontrolled talking/laughing Hydrocodone Other (See Comments) Medium 12/19/2017 Can tolerate oxycodone Causes mental changes, Can tolerate oxycodone Lidocaine Rash Low 09/24/2024 Makes skin burn Meloxicam Unknown 09/24/2024 Affects kidneys Methocarbamol Other (See Comments) Low 06/01/2023 System issues Methotrexate Unknown,Other (See Comments) Low 07/17/2020 Bruising w/skin bleeding Wcobriyp-Lgwcdqcwu-Inyym selina Other (See Comments) Low 06/01/2023 Skin rash/ peel Niacin Fever,Nausea and Vomiting,Shortness of Breath/Wheezing High 08/09/2018 Nut Flavor Shortness of Breath/Wheezing High 06/01/2023 Closed throat Pantoprazole Unknown Low 06/01/2023 Terbinafine Hives High 06/01/2023 Tizanidine Other (See Comments) Medium 06/01/2023 bleeding Zinc Nicotinate Other (See Comments) Low 06/01/2023 System shut down Zolpidem Shortness of Breath/Wheezing High 09/24/2024 Medications cyanocobalamin 1,000 mcg Tablet Take 1,000 mcg by mouth. Active diclofenac sodium (VOLTAREN) 1 % gel Apply to affected area 4 times daily. Active losartan (COZAAR) 100 mg tablet Take 100 mg by mouth daily. Active abatacept/malto se (ORENCIA, WITH MALTOSE, IV) Inject 1,000 mg by intravenous injection every 30 days. Active atorvastatin (LIPITOR) 10 mg tablet Take 10 mg by mouth. Active azelastine (ASTELIN) 137 mcg/actuation nasal spray Administer 2 Sprays in each nostril 2 times daily. 4 Active betamethasone, augmented (DIPROLENE-AF) 0.05 % Cream Apply 1 Application to affected area daily. 4 Active ALPRAZolam (XANAX) 2 mg tablet 4 Active Active Problems No known active problems Encounters Date Type Department Care Team Description 09/25/2024 External Device Data STL ABSTRACTION Provider, Abstract 09/25/2024 External Device Data STL ABSTRACTION Provider, Abstract 09/25/2024 External Device Data STL ABSTRACTION Provider, Abstract 09/24/2024 3:00 PM CDT Office Visit [facility] [place] [address] [place] [address] Norbert John MD Lung nodule (Primary Dx); Cancer of cheek (CMS/HCC) from Last 3 Months Family History Medical History Relation Name Comments Diabetes Brother No Known Problems Father Heart Disease Mother Squamous cell carcinoma Mother No Known Problems Sister 1 No Known Problems Sister 2 Relation Name Status Comments Brother Alive Father Mother Sister 1 Alive Sister 2 Alive Social History Tobacco Use Types Packs/Day Years Used Date Smoking Tobacco: Never Smokeless Tobacco: Never Alcohol Use Standard Drinks/Week Comments Never 0 (1 standard drink = 0.6 oz pur e alcohol) Sex and Gender Information Value Date Recorded Sex Assigned at Not on file Legal Sex Male 10:49 AM CDT Gender Identity Not on file Sexual Orientation Not on file Last Filed Vital Signs Vital Sign Reading Time Taken Comments Blood Pressure 116/77 09/24/2024 2:57 PM CDT Pulse 71 09/24/2024 2:57 PM CDT Temperature 36.3 C (97.4 F) 09/24/2024 2:57 PM CDT Respiratory Rate 15 09/24/2024 2:57 PM CDT Oxygen Saturation 93% 09/24/2024 2:57 PM CDT Inhaled Oxygen Concentration - - Weight 100.7 kg (222 lb) 09/24/2024 2:57 PM CDT Height 177.8 cm (5' 10) 09/24/2024 2:57 PM CDT Body Mass Index 31.85 09/24/2024 2:57 PM CDT Plan of Treatment Upcoming Encounters Date Type Department Care Team (Late st Contact Info) Description 10/04/2024 4:30 PM CDT Telephone Check Up [facility] [address] [facility] [address] [place] [address] Norbert John MD [address] [facility] [address] [place] [address] Health Maintenance Due Date Last Done Comments DTAP/TDAP/TD VACCINES (1 - Tdap) 1971 FIT-DNA Q 3 years 1997 FIT/FOBT Q 1 year 1997 Flex Sig/CT Colonography Q 5 years 1997 PNEUMOCOCCAL VACCINE 50+ YEARS (1 of 1 - PCV) 03/08/20 02 ZOSTER VACCINE (1 of 2) 2002 COLORECTAL SCREENING 01/30/2022 01/31/2012 Colorectal Cancer Screening 01/30/2022 INFLUENZA VACCINE (#1) 2024 RSV VACCINE (60+ or ) (1 - 1-dose 75+ series) 2027 Insurance MEDICARE PART A AND B [facility] [id number] MEDICARE PART A AND B [facility] [id number] Care Teams Senior Datastage Developer Relationship Specialty Start Date End Date Stephan Tomas DO [address] [phone] PCP - General Family Practice 09/25/18
--- OUTSIDE RECORDS SUMMARY | 2024-09-27 08:30 | XMS_ITS | Encounter Summary ---
Author Organization [facility] Address [address] [place] [address] Care Team Providers Care Vice President Mission Integration Name Role Phone Stephan Tomas DO Primary Care Provider Encounter Details Date Type Department Care Team (Late st Contact Info) Description 09/25/2024 External Device Data STL ABSTRACTION Provider, Abstract NO ADDRESS ON FILE Social History Tobacco Use Types Packs/Day Years Used Date Smoking Tobacco: Never Smokeless Tobacco: Never Alcohol Use Standard Drinks/Week Comments Never 0 (1 standard drink = 0.6 oz pur e alcohol) Sex and Gender Information Value Date Recorded Sex Assigned at Not on file Legal Sex Male 10:49 AM CDT Gender Identity Not on file Sexual Orientation Not on file documented as of this encounter Plan of Treatment Upcoming Encounters Date Type Department Care Team (Late st Contact Info) Description 10/04/2024 4:30 PM CDT Telephone Check Up [facility] Oncology and Hematology - [place] [address] [facility] [address] [place] [address] Norbert John MD [address] [facility] [address] [place] [address] documented as of this encounter Visit Diagnoses Not on filedocumented in this encounter Care Teams Vice President Mission Integration Relationship Specialty Start Date End Date Stephan Tomas DO [address] [facility] [address] [place] [address] PCP - General Family Practice 09/25/18 documented as of this encounter
--- OUTSIDE RECORDS SUMMARY | 2024-09-27 08:30 | XMS_ITS ---
Author Organization [facility] Address [address] [id number] Care Team Providers Care Space Controller Name Role Phone Ronald Cristobal Unavailable [phone] Migration, Provider Unavailable Unavailable Allergies Allergen (clinical drug ingredient) Drug/Non Drug Allergy documented on EMR Reaction Allergy Type Onset Date Status HYDROCODONE CP (uncoded) Unknown Allergy Active amoxicillin / clavulanate Augmentin Unknown Drug Allergy Active clindamycin Clindamycin Unknown Drug Allergy Act maritza REASON FOR VISIT [facility] To [facility] Conversion Encounter Medications Medication SIG (Take, [...] review and pick correct strength-formula tion from Coravinspan options. If intended option is not shown, [...] Location Date Provider Diagnosis [facility] [place] [address] [address] [facility] [address] [place], [place] [phone] 03/10/2024 Provider Migration ACUTE OTITIS EXTERNA NEC [...] Progress Notes * GODINEZLebronningDOB:1950 (74 yo M)Acc No.[id number]:03/10/2024 Patient: Brian MOSELEY Provider: Veronica claire Migration :1950 A ge:74 Y S ex:Male Date:03/10/2024 Address:[address] [place] [address] Subjective: * Chief Complaints: * 1 . Multum To Medispan Conversion Encounter. * Medical History: * Medications: T aking Amoxicillin 500 MG Capsule 1 cap(s) orally 3 times a day , Taking oxyCODONE HCl 7.5 MG TABLET 1 TAB(S) ORALLY EVERY 6 HOURS , Notes to Pharmacist: *Please review and pick correct strength-formulation from Coravinspan options. If intended option is not shown, [...] Electronic signature of Prov ider Migration on 09/27/2024 at 08:30 AM CDT Sign off status: Pending * Provider: Veronica claire Migration Date: 05/11/2023 Generated for Margie hess/Radha/Traitting on: 0 09/27/2024 08:30 AM CDT
--- OUTSIDE RECORDS SUMMARY | 2024-09-27 08:30 | XMS_ITS | Clinical Summary ---
Author Organization [facility] Address [address] [facility] [place] [address] Care Team Providers Care Tattooer Name Role Phone Michael Hussein MD Primary Care Provider [phone] Source Comments [facility],non-owned Affiliates and Associated Physician Practices is amultiple site organization consisting of ambulatory clinics and hospital sitesin [place], [place], [place] and [place]. This disclosure is being madepursuant to the Care Everywhere program and may not contain all information available regarding this patient. Last updated 17.[facility] Allergies Active Allergy Reactions Criticality Noted Date [...] Active Problems Problem Noted Date Diagnosed Date jail (current) use of i mmunosuppressive biologic (Orencia) [...] some benefit. Rheumatoid arthritis of [place] [facility] sites with negative rheumatoid factor 05/26/2017 [...] 12/02/2022 Assessment & Plan (06/04/2021 11:10 AM STEREO OPERATOR): Reviewed potential inherent risks with the [...] Type Department Care Team Description 09/05/2024 Telephone [facility] - Rheumatology [address] [place] [address], [address] [place] [address] Tuan Poon DO Erroneous encounter-disregard 08/10/2024 Telephone [facility] - Rheumatology [address] [place] [address], [address] [place] [address] Tuan Poon DO Update 07/25/2024 Results Follow-Up [facility] - Rheumatology [address] [facility], [address] [place] [address] Tuan Poon DO 07/17/2024 Telephone [facility] - Rheumatology [address] [place] [address], [address] [place] [address] Tuan Poon DO Update from [...] on file Legal Sex Male 1:56 PM STEREO OPERATOR Gender Identity Not on file Sexual [...] Description 11/20/2024 9:20 AM CDT Office Visit [facility] - Rheumatology [address] [facility], [address] [place] [address] Tuan Poon DO [address] [place] [address] Health Maintenance Due Date Last [...] this topic Medical Devices Implanted Type Area Slasher Operator Device Identifier Shelf Expiration Date Model / Serial / Lot Graft Bone Alfs + Dbm 5ml Ptty Implanted:Qty: 1 on 12/20/2017 by Easton Paula DO at [facility] N/A: Spine Lumbar [employer]ource 04/27/2019 [id number] / / [id number] Brandywine Set Screw Implanted:Qty: 4 on 12/20/2017 by Easton Puala DO at [facility] N/A: Spine Lumbar [employer] [id number] / / 6.5x50mm Screw Implanted:Qty: 2 on 12/20/2017 by Easton Paula DO at [facility] N/A: Spine Lumbar [employer] [id number] / / 6.5x55mm Screw Implanted:Qty: 1 on 12/20/2017 by Easton Paula DO at [facility] N/A: Spine Lumbar [employer] [id number] / / 6.5x60mm Screw Implanted:Qty: 1 on 12/20/2017 by Easton Paula DO at [facility] N/A: Spine Lumbar [employer] [id number] / / 35mm Flavio Implanted:Qty: 1 on 12/20/2017 by Easton Paula DO at [facility] N/A: Spine Lumbar [employer] [id number] / / 40mm Flavio Implanted:Qty: 1 on 12/20/2017 by Easton Paula DO at [facility] N/A: Spine Lumbar [employer] [id number] / / Procedures Procedure Name Priority Date/Time Associated Diagnosis Comments MRI ELBOW RIGHT WWO CONTRAST Routine 07/21/2024 8:32 AM CDT COMPREHENSIVE METABOLIC PANEL 11/05/2020 3:48 PM CDT HEPATITIS SCREEN ACUTE 3:20 PM STEREO OPERATOR ENDOSCOPY, COLON, SCREENING Routine 01/31/2012 1:26 PM STEREO OPERATOR from Last 3 Months or Most [...] approximately 13% higher for people identified as -[place]. eGFR by MDRD 53(L) > OR = [...] 46 U/L [facility]ST Comment: Test Performed at: [facility] [id number] [place] [address] SHEILA PÉREZ DO,MPH 11/05/2020 3:48 PM CDT 11/05/2020 3:49 PM CDT Narendra Spencer MD LAB - CHEMISTRY ORDERABLES Final Result Performing Organization Address City/State/[facility] Co de Phone Number [facility] [address] [place] [address] * HEPATITIS SCREEN ACUTE (02/06/2020 3:20 PM STEREO OPERATOR) Hepatitis A Virus Antibody IgM NON-REACT LINDA NON-REACT LINDA [facility] Comment: For additional information, please refer to http://Decision Pace.Photodigm/faq/ILD567 (This link is being provided for informational/ [...] a test for HCV RNA (test code 86158) is suggested. For additional information please refer to http://Decision Pace.Photodigm/faq/CGW91b5 (This link is being provided for informational/ educational purposes only.) Test Performed at: [facility] [address] [place] [address] SHEILA PÉREZ,DO,MPH 02/06/2020 3:20 PM STEREO OPERATOR 02/06/2020 3:21 PM STEREO OPERATOR us Narendra Spencer MD LAB - CHEMISTRY ORDERABLES Final Result Performing Organization Address City/[facility]/ZIP Co de Phone Number [facility] [address] [place] [address] * ENDOSCOPY, COLON, SCREENING (01/31/2012 1:26 PM STEREO OPERATOR) Narrative Transcriptions Amaury Noyola MD - 01/31/2012 1:26 PM CST us Amaury Noyola MD GI PROCEDURE ORDERABLES Final Re sult Performing Organization Address City/[facility]/ZIP Co de Phone Number [facility] ENDOSCOPY from Last 3 Months or Most Recently Relevant to Health Maintenance Insurance MEDICARE MEDICARE [facility] Member Subscriber Plan / Payer ( fective 2017-Present) Name:Jin Godinez Relation to Subscriber:Self Name:Jin Godinez Payer ID:Not on file Group ID:Not on file Type:Commercial Address: [place] [id number] MEDICARE [facility] Member Subscriber Plan / Payer ( fective 2017-Present) Name:Lebron Godinezald Relation to Subscriber:Self Name:GODINEZ JIN CANO Payer ID:Not on file Group ID:[id number] Type:Commercial Address: [place] [id number] MEDICARE AAR [facility] Advance Directives Documents on File Type Date Recorded Patient Landmen Expl anation Adv Directive/Living Will/POA 12/20/2017 Adv Directive/Living Will/POA 09/06/2013 10:31 PM * Full Code (Latest Code Status on File) Date Activated Date Inactivated Comments 12/20/2017 5:02 PM 12/22/2017 1:45 PM * Full Code Date Activated Date Inactivated Comments 09/04/2013 2:46 PM 09/05/2013 6:37 PM Care Teams Tattooer Relationship Specialty Start Date End Date Michael Hussein MD [address] [place] [address] PCP - General Internal Medicine 06/04/21
--- OUTSIDE RECORDS SUMMARY | 2024-09-27 08:30 | XMS_ITS | Clinical Summary ---
Author Organization [facility] Address [address] [place] [address] Care Team Providers Care Poured Concrete Wall Technician Name Role Phone Unavailable Primary Care Provider [...]
[2024-09-27 09:14] LABS: Estimated Glomerular Filt Rate 44
== END 2024-09-27 08:27 | disposition home or self-care (01) ==
LOC: CHSIMG 08:28
PROVIDERS: PCP Internal Medicine; Visit Provider Internal Medicine Hematology & Oncology
DX: R91.1 Solitary pulmonary nodule (principal)
CPT/HCPCS: 70491; 71260; Q9967

== ENCOUNTER 2024-10-11 13:01 | Outpatient (CLI) | payer MEDICARE, SELFPAY ==
--- OUTSIDE RECORDS SUMMARY | 2024-10-11 13:06 | XMS_ITS | Clinical Summary ---
Author Organization [facility] Address [address] [place] [address] Care Team Providers Care Surface To Air Weapons Officer Name Role Phone Unavailable Primary Care Provider [...]
--- OUTSIDE RECORDS SUMMARY | 2024-10-11 13:07 | XMS_ITS ---
Author Organization [facility] Address [address] [phone] Care Team Providers Care Labor Specialist Name Role Phone Ronald Cristobal Unavailable [phone] Migration, Provider Unavailable Unavailable Allergies Allergen (clinical drug ingredient) Drug/Non Drug Allergy documented on EMR Reaction Allergy Type Onset Date Status HYDROCODONE CP (uncoded) Unknown Allergy Active amoxicillin / clavulanate Augmentin Unknown Drug Allergy Active clindamycin Clindamycin Unknown Drug Allergy Act maritza REASON FOR VISIT [facility] To [facility] Conversion Encounter Medications Medication SIG (Take, [...] review and pick correct strength-formula tion from G[employer] Insightspan options. If intended option is not shown, [...] Location Date Provider Diagnosis [facility] [place] [address] [address] [facility] [address] [place], [place] [phone] 03/10/2024 Provider Migration ACUTE OTITIS EXTERNA NEC [...] Progress Notes * GODINEZLebronningDOB:1950 (74 yo M)Acc No.[id number]:03/10/2024 Patient: Brian MOSELEY Provider: Veronica claire Migration :1950 A ge:74 Y S ex:Male Date:03/10/2024 Address:[address] [place] [address] Subjective: * Chief Complaints: * 1 . Multum To Medispan Conversion Encounter. * Medical History: * Medications: T aking Amoxicillin 500 MG Capsule 1 cap(s) orally 3 times a day , Taking oxyCODONE HCl 7.5 MG TABLET 1 TAB(S) ORALLY EVERY 6 HOURS , Notes to Pharmacist: *Please review and pick correct strength-formulation from G[employer] Insightspan options. If intended option is not shown, [...] Electronic signature of Prov ider Migration on 10/11/2024 at 01:07 PM CDT Sign off status: Pending * Provider: Veronica claire Migration Date: 05/11/2023 Generated for Margie hess/Radha/Traitting on: 10/11/2024 01:07 PM CDT
--- OUTSIDE RECORDS SUMMARY | 2024-10-11 13:07 | XMS_ITS | Clinical Summary ---
Author Organization [facility] danielle [facility] Address [address] [address] Care Team Providers Care Taker Off Braker Machine Name Role Phone Stephan Tomas Primary Care Provider [phone] Allergies Active Allergy Reactions Criticality Noted Date [...] (See Comments) Low 07/17/2020 Bruising w/skin bleeding Hgadvvmb-Fqxonbnnk-Cacvy selina Other (See Comments) Low 06/01/2023 Skin [...] Encounters Date Type Department Care Team Description 10/04/2024 4:30 PM CDT Telephone Check Up [facility] Oncology and Hematology [place] [address] [place] [phone] Norbert John MD Lung nodule (Primary Dx) 09/25/2024 External Device Data STL ABSTRACTION Provider, Abstract 09/25/2024 External Device Data STL ABSTRACTION Provider, Abstract 09/25/2024 External Device Data STL ABSTRACTION Provider, Abstract 09/24/2024 3:00 PM CDT Office Visit [facility] Oncology and Hematology - [place] [address] [place] [address] Norbert John MD Lung nodule (Primary Dx); [...] Care Team (Late st Contact Info) Description 01/21/2025 1:15 PM CDT Office Visit [facility] Oncology and Hematology - [place] [address] [facility] [address] [place] [address] Norbert John MD [address] [facility] [address] [place] [address] Health Maintenance Due Date Last Done Comments DTAP/TDAP/TD VACCINES (1 - Tdap) 1971 FIT-DNA Q 3 years 1997 FIT/FOBT Q 1 year 1997 Flex Sig/CT Colonography Q 5 years 1997 PNEUMOCOCCAL VACCINE 50+ YEARS (1 of 1 - PCV) 03/08/20 ZOSTER VACCINE (1 of 2) 2002 COLORECTAL SCREENING 01/30/2022 01/31/2012 Colorectal Cancer Screening 01/30/2022 INFLUENZA VACCINE (#1) 2024 RSV VACCINE (60+ or ) (1 - 1-dose 75+ series) 2027 Insurance MEDICARE PART A AND B [employer] [facility] [id number] MEDICARE PART A AND B [employer] [facility] [id number] Care Teams Taker Off Braker Machine Relationship Specialty Start Date End Date Stephan Tomas DO [address] [phone] PCP - General Family Practice 09/25/18
--- OUTSIDE RECORDS SUMMARY | 2024-10-11 13:07 | XMS_ITS | Patient Health Record ---
Author Organization [facility] Address [address] [facility] [address] [place], [place] [address] Care Team Providers Care Relay Tester Helper Name Role Phone Ronald Cristobal Unavailable [phone] Migration, Provider Unavailable Unavailable Allergies Allergen (clinical [...] review and pick correct strength-formula tion from [employer] options. If intended option is not shown, [...] Status Risk Notes Problem Acute otitis externa (80054397) ACUTE OTITIS EXTERNA NEC (380.22) Active confirmed lt Problem Chronic infection of sinus (22378129) Chronic infection of sinus NOS (473.9) Active confirmed Problem Otalgia NOS (388.70) Active confirmed lt Encounters Encounter Location Date Provider Diagnosis [facility] [place] [address] [facility] [address] [place], [place] [address] 03/10/2024 Provider Migration ACUTE OTITIS EXTERNA NEC 380.22 Assessments Encounter Date Diagnosis (ICD Code) Assessment Notes Treatment Notes Treatment Clinical Notes Section Notes 03/10/2024 ACUTE OTITIS EXTERNA NEC (ICD9-CM - 380.22) lt Plan Of Treatment No Information Insurance Providers Payer Name Payer Address Payer Phone Subscriber Number Group Number Insured Name Patient Relationship to Insured Coverage Start Date Coverage End Date [facility] [address] [place] [address] [id number] Brian Abarca Self - patient is the [...]
--- OUTSIDE RECORDS SUMMARY | 2024-10-11 13:07 | XMS_ITS | Clinical Summary ---
Author Organization [facility] Address [address] [place] [address] Care Team Providers Care Construction Trench Digger Name Role Phone Michael Hussein MD Primary Care Provider [phone] Source Comments [facility],non-owned Affiliates and Associated Physician Practices is amultiple site organization consisting of ambulatory clinics and hospital sitesin [place], [place], [place] and [place]. This disclosure is being madepursuant to the Care Everywhere program and may not contain all information available regarding this patient. 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 Rheumatoid arthritis of [facility] sites with negative rheumatoid factor 05/26/2017 Overview [...] 12/02/2022 Assessment & Plan (06/04/2021 11:10 AM ACTIVITIES AIDE): Reviewed potential inherent risks with the continued [...] Type Department Care Team Description 09/05/2024 Telephone [facility] - Rheumatology [address] [place] [address], [address] [place] [address] Tuan Poon DO Erroneous encounter-disregard 08/10/2024 Telephone [facility] - Rheumatology [address] [place] [address], [address] [place] [address] Tuan Poon DO Update 07/25/2024 Results Follow-Up [facility] - Rheumatology [address] [facility], [address] [place] [address] Tuan Poon DO 07/17/2024 Telephone [facility] - Rheumatology [address] [place] [address], [address] [place] [address] Tuan Poon DO Update from [...] on file Legal Sex Male 1:56 PM ACTIVITIES AIDE Gender Identity Not on file Sexual Orientation [...] Description 11/20/2024 9:20 AM CDT Office Visit [facility] - Rheumatology [address] [facility], [address] [place] [address] Tuan Poon DO [address] [place] [address] Health Maintenance Due Date Last [...] 06/19/2020, 05/22/2020 DEPRESSION SCREENING 03/28/2024 INFLUENZA VACCINE (#1) 2024 Respiratory Syncytial Virus (RSV) Vaccine Pt: [...] this topic Medical Devices Implanted Type Area Supervisor Dimension Warehouse Device Identifier Shelf Expiration Date Model / Serial / Lot Graft Bone Alfs + Dbm 5ml Ptty Implanted:Qty: 1 on 12/20/2017 by Easton Paula DO at [facility] N/A: Spine Lumbar Allosource 04/27/2019 [id number] / / [id number] Parlier Set Screw Implanted:Qty: 4 on 12/20/2017 by Easton Paula DO at [facility] N/A: Spine Lumbar [employer] [id number] / / 6.5x50mm Screw Implanted:Qty: 2 on 12/20/2017 by Easton Paula DO at [facility] N/A: Spine Lumbar [employer] [id number] / / 6.5x55mm Screw Implanted:Qty: 1 on 12/20/2017 by Easton Paula DO at [facility] N/A: Spine Lumbar [employer] [id number] / / 6.5x60mm Screw Implanted:Qty: 1 on 12/20/2017 by Easton Paula DO at [facility] N/A: Spine Lumbar [employer] [id number] / / 35mm Flavio Implanted:Qty: 1 on 12/20/2017 by Easton Paula DO at [facility] N/A: Spine Lumbar [employer] [id number] / / 40mm Flavio Implanted:Qty: 1 on 12/20/2017 by Easton Paula DO at [facility] N/A: Spine Lumbar [employer] [id number] / / Procedures Procedure Name Priority Date/Time Associated Diagnosis Comments MRI ELBOW RIGHT WWO CONTRAST Routine 07/21/2024 8:32 AM CDT COMPREHENSIVE METABOLIC PANEL 11/05/2020 3:48 PM CDT HEPATITIS SCREEN ACUTE 3:20 PM ACTIVITIES AIDE ENDOSCOPY, COLON, SCREENING Routine 01/31/2012 1:26 PM ACTIVITIES AIDE from Last 3 Months or Most Recently [...] 46 U/L [facility] Comment: Test Performed at: [facility] [address] [place] [address] SHEILA PÉREZ DO,MPH 11/05/2020 3:48 PM CDT 11/05/2020 3:49 PM CDT Narendra Spencer MD LAB - CHEMISTRY ORDERABLES Final Result Performing Organization Address City/State/[facility] Co de Phone Number [email or web address] [address] [place] [address] * HEPATITIS SCREEN ACUTE (02/06/2020 3:20 PM ACTIVITIES AIDE) Hepatitis A Virus Antibody IgM NON-REACT LINDA NON-REACT LINDA [facility] Comment: For additional information, please refer to http://[employer].nPario/faq/HFE064 (This link is being provided for informational/ [...] a test for HCV RNA (test code 90414) is suggested. For additional information please refer to http://[employer].nPario/faq/NEN11a0 (This link is being provided for informational/ educational purposes only.) Test Performed at: [facility] [address] [place] [address] SHEILA PÉREZ,DO,MPH 02/06/2020 3:20 PM ACTIVITIES AIDE 02/06/2020 3:21 PM ACTIVITIES AIDE us Narendra Spencer MD LAB - CHEMISTRY ORDERABLES Final Result Performing Organization Address City/[facility]/ZIP Co de Phone Number [facility] [address] [place] [address] * ENDOSCOPY, COLON, SCREENING (01/31/2012 1:26 PM ACTIVITIES AIDE) Narrative Transcriptions Amaury Noyola MD - 01/31/2012 1:26 PM CST us Amaury Noyola MD GI PROCEDURE ORDERABLES Final Re sult Performing Organization Address City/[facility]/ZIP Co de Phone Number [facility] ENDOSCOPY from Last 3 Months or Most Recently Relevant to Health Maintenance Insurance MEDICARE MEDICARE [facility] Member Subscriber Plan / Payer ( fective 2017-Present) Name:Jin Godinez Relation to Subscriber:Self Name:Jin Godinez Payer ID:Not on file Group ID:Not on file Type:Commercial Address: [place] [id number] MEDICARE [facility] Member Subscriber Plan / Payer ( fective 2017-Present) Name:Lebron Godinezald Relation to Subscriber:Self Name:GODINEZ JIN CANO Payer ID:Not on file Group ID:[id number] Type:Commercial Address: [place] [phone] MEDICARE AAR [facility] Advance Directives Documents on File Type Date Recorded Patient Loan Servicing Officer Expl anation Adv Directive/Living Will/POA 12/20/2017 Adv Directive/Living Will/POA 09/06/2013 10:31 PM * Full Code (Latest Code Status on File) Date Activated Date Inactivated Comments 12/20/2017 5:02 PM 12/22/2017 1:45 PM * Full Code Date Activated Date Inactivated Comments 09/04/2013 2:46 PM 09/05/2013 6:37 PM Care Teams Construction Trench Digger Relationship Specialty Start Date End Date Michael Hussein MD [address] [place] [address] PCP - General Internal Medicine 06/04/21
[2024-10-11 13:36] VITALS: BP 123/64; PULSE 72; RESP 16; TEMP 36.6; O2SAT 97
[2024-10-11] MEDS: MALTOSE IVPB (13:56)
[2024-10-11] MEDS: ABATACEPT IVPB (13:56)
[2024-10-11] MEDS: SODIUM CHLORIDE 0.9% IVPB (13:56)
[2024-10-11 14:35] VITALS: BP 134/75; PULSE 78
--- NOTE | 2024-10-11 14:37 | PC.NURSE ---
Tolerated Orencia infusion well. SEE MAR/patient care notes.
== END 2024-10-11 13:02 | disposition home or self-care (01) ==
PROVIDERS: PCP Internal Medicine; Visit Provider Internal Medicine Rheumatology
DX: M06.9 Rheumatoid arthritis, unspecified (principal)
CPT/HCPCS: 96365; J0129

== ENCOUNTER 2024-11-08 13:02 | Outpatient (CLI) | payer MEDICARE, SELFPAY ==
--- OUTSIDE RECORDS SUMMARY | 2024-11-08 13:16 | XMS_ITS | Clinical Summary ---
Author Organization [facility] Address [address] [place] [address] Care Team Providers Care Information Assoc Name Role Phone Unavailable Primary Care Provider [...]
--- OUTSIDE RECORDS SUMMARY | 2024-11-08 13:16 | XMS_ITS | Patient Health Record ---
Author Organization [facility] Address [address] [facility] [address] [place], [place] [address] Care Team Providers Care Vehicle Refinisher Name Role Phone Ronald Cristobal Unavailable [phone] Migration, Provider Unavailable Unavailable Allergies Allergen (clinical [...] 12.5 MG 1 cap(s) orally once a day; Duration: 30 day(s) Active ALPRAZolam ER 0.5 MG 1 tab(s) orally once a day (in the morning); Duration: 10 day(s) Active Citalopram Hydrobromide 20 MG 1 tab(s) orally once a day; Duration: 30 day(s) Active Amphetamine-Dextroampheta mine 20 MG 1 tab(s) orally 2 times a day; Duration: 30 day(s) Active oxyCODONE HCl 7.5 MG 1 TAB(S) ORALLY EVERY 6 HOURS *Please review and pick correct strength-formula tion from Medispan options. If intended option is not shown, discontinue and re-order from Quick Search* Active CLOBETASOL OINTMENT 0.05% 1 ALEXIS APPLIED TOPICALLY 2 TIMES A DAY; Duration: 30 DAY(S) *Please review for potential replacement for e-prescription and drug interaction check* Active Amoxicillin 500 MG 1 cap(s) orally 3 times a day; Duration: 10 day(s) Active PROAIR HFA CFC FREE 90 MCG/INH 2 PUFF(S) INHALED 4 TIMES A DAY; Duration: 30 DAY(S) *Please review for potential replacement for e-prescription and drug interaction check* Active Symbicort 160-4.5 MCG/ACT 2 puff(s) inha led 2 times a day; Duration: 30 day(s) Active Fluticasone Propionate 50 MCG/ACT 1 spray(s) intranasally once a day; Duration: 30 day(s) Active NexIUM 40 MG 1 cap(s) orally once a day; Duration: 30 day(s) Active predniSONE 20 MG 1 tab(s) orally once a day; Duration: 7 day(s) Active TYLENOL WITH CODEINE #3 5/325MG 1 TAB(S) ORALLY EVERY 6 HOURS *Please review for potential replacement for e-prescription and drug interaction check* Active Problems Problem Type SNOMED Code ICD Code Onset Dates Problem Status W/U Status Risk Notes Problem Acute otitis externa (49221051) ACUTE OTITIS EXTERNA NEC (380.22) Active confirmed lt Problem Chronic infection of sinus (17406418) Chronic infection of sinus NOS (473.9) Active confirmed Problem Pain of ear (finding) (601290935) Otalgia NOS (388.70) Active confirmed lt Encounters Encounter Location Date Provider Diagnosis [facility] [place] [address] [place], [place] [address] 03/10/2024 Provider Migration ACUTE OTITIS EXTERNA NEC 380.22 Assessments Encounter Date Diagnosis (ICD Code) Assessment Notes Treatment Notes Treatment Clinical Notes Section Notes 03/10/2024 ACUTE OTITIS EXTERNA NEC (ICD9-CM - 380.22) lt Plan Of Treatment No Information Insurance Providers Payer Name Payer Address Payer Phone Subscriber Number Group Number Insured Name Patient Relationship to Insured Coverage Start Date Coverage End Date [facility] [address] [place] [address] [id number] Brian Abarca Self - patient is the [...]
--- OUTSIDE RECORDS SUMMARY | 2024-11-08 13:16 | XMS_ITS | Clinical Summary ---
Author Organization [facility] Address [address] [place] [address] Care Team Providers Care Degreaser Name Role Phone Michael Hussein MD Primary Care Provider [phone] Source Comments [facility],non-owned Affiliates and Associated Physician Practices is amultiple site organization consisting of ambulatory clinics and hospital sitesin [place], [place], [place] and [place]. This disclosure is being madepursuant to the Care Everywhere program and may not contain all information available regarding this patient. 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 Rheumatoid arthritis of [facility] sites with negative rheumatoid factor [...] 12/02/2022 Assessment & Plan (06/04/2021 11:10 AM COLOR CARD MAKER): Reviewed potential inherent risks with the continued [...] Type Department Care Team Description 09/05/2024 Telephone [facility] - Rheumatology [address], [address] [place] [address] Tuan Poon DO Erroneous encounter-disregard 08/10/2024 Telephone [facility] - Rheumatology [address], [address] [place] [address] Tuan Poon DO Update from Last 3 Months Immunizations Immunization Administration Dates Next Due CovSearchspace primary monoval ent 12+ yr 0.3mL Purple [...] on file Legal Sex Male 1:56 PM COLOR CARD MAKER Gender Identity Not on file Sexual Orientation [...] Description 11/20/2024 9:20 AM CDT Office Visit [facility] - Rheumatology [address] [place] [address] Tuan Poon, [address] [place] [address] Health Maintenance Due Date Last [...] 01/30/2022 01/31/2012 SCREENING FOR DIABETES 11/06/2023 , 09/25/2018, 09/25/2018, Additional history exists COVID-19 VACCINE (3 - [...] this topic Medical Devices Implanted Type Area Corporate Strategy Associate Device Identifier Shelf Expiration Date Model / Serial / Lot Graft Bone Alfs + Dbm 5ml Ptty Implanted:Qty: 1 on 12/20/2017 by Easton Paula DO at [facility] N/A: Spine Lumbar Allosource 04/27/2019 [id number] / / [id number] Sultana Set Screw Implanted:Qty: 4 on 12/20/2017 by Easton Paula DO at [facility] N/A: Spine Lumbar [employer] [id number] / / 6.5x50mm Screw Implanted:Qty: 2 on 12/20/2017 by Easton Paula DO at [facility] N/A: Spine Lumbar [employer] [id number] / / 6.5x55mm Screw Implanted:Qty: 1 on 12/20/2017 by Easton Paula DO at [facility] N/A: Spine Lumbar [employer] [id number] / / 6.5x60mm Screw Implanted:Qty: 1 on 12/20/2017 by Easton Paula DO at [facility] N/A: Spine Lumbar [employer] [id number] / / 35mm Flavio Implanted:Qty: 1 on 12/20/2017 by Easton Paula DO at [facility] N/A: Spine Lumbar [employer] [id number] / / 40mm Flavio Implanted:Qty: 1 on 12/20/2017 by Easton Paula DO at [facility] N/A: Spine Lumbar [employer] [id number] / / Procedures Procedure Name Priority Date/Time Associated Diagnosis Comments COMPREHENSIVE METABOLIC PANEL 11/05/2020 3:48 PM CDT HEPATITIS SCREEN ACUTE 0 3:20 PM COLOR CARD MAKER ENDOSCOPY, COLON, SCREENING Routine 01/31/2012 1:26 PM COLOR CARD MAKER from Last 3 Months or Most Recently Relevant to Health Maintenance Results * (ABNORMAL) COMPREHENSIVE METABOLIC PANEL (11/05/2020 3:48 PM CDT) [facility] [address] Glucose 99 65 - 99 mg/dL [facility] Comment: Fasting reference interval BUN 32(H) 7 - 25 mg/dL [facility] Creatinine 1.36(H) 0.70 - 1.25 mg/dL [facility] Comment: For patients >49 years of age, the reference limit for Creatinine is approximately 13% higher for people identified as -Japanese. eGFR by MDRD 53(L) > OR = [...] 46 U/L [facility] Comment: Test Performed at: [facility] [address] [place] [address] SHEILA PÉREZ DO,MPH 11/05/2020 3:48 PM CDT 11/05/2020 3:49 PM CDT Narendra Spencer MD LAB - CHEMISTRY ORDERABLES Final Result Performing Organization Address [facility] de Phone Number [facility] [address] [place] [address] * HEPATITIS SCREEN ACUTE (02/06/2020 3:20 PM COLOR CARD MAKER) Hepatitis A Virus Antibody IgM NON-REACT LINDA NON-REACT LINDA [facility] Comment: For additional information, please refer to http://[employer].Contextors/faq/NTR256 (This link is being provided for informational/ [...] a test for HCV RNA (test code 06090) is suggested. For additional information please refer to http://[employer].Contextors/faq/PJV49g6 (This link is being provided for informational/ educational purposes only.) Test Performed at: [facility] [address] [place] [address] SHEILA PÉREZ DO,MPH 02/06/2020 3:20 PM COLOR CARD MAKER 02/06/2020 3:21 PM COLOR CARD MAKER Result [facility] Narendra Spencer MD LAB - CHEMISTRY ORDERABLES Final Result Performing Organization Address [facility] de Phone Number [facility] [address] [place] [address] * ENDOSCOPY, COLON, SCREENING (01/31/2012 1:26 PM COLOR CARD MAKER) Narrative Transcriptions Amaury Noyola MD - 01/31/2012 1:26 PM CST Result [facility] Amaury Noyola MD GI PROCEDURE ORDERABLES Final Re sult Performing Organization Address [facility] Co de Phone Number [facility] ENDOSCOPY from Last 3 Months or Most Recently Relevant to Health Maintenance Insurance MEDICARE MEDICARE [facility] MEDICARE [facility] MEDICARE [facility] Advance Directives Documents on File Type Date Recorded Patient Sampler And Test Preparer Expl anation Adv Directive/Living Will/POA 12/20/2017 Adv Directive/Living Will/POA 09/06/2013 10:31 PM * Full Code (Latest Code Status on File) Date Activated Date Inactivated Comments 12/20/2017 5:02 PM 12/22/2017 1:45 PM * Full Code Date Activated Date Inactivated Comments 09/04/2013 2:46 PM 09/05/2013 6:37 PM Care Teams Degreaser Relationship Specialty Start Date End Date Michael Hussein MD [address] [place] [address] PCP - General Internal Medicine 06/04/21
--- OUTSIDE RECORDS SUMMARY | 2024-11-08 13:16 | XMS_ITS | Clinical Summary ---
Author Organization [facility] Address [address] [place] [address] Care Team Providers Care Slot Floor Person Name Role Phone Stephan Tomas Primary Care Provider [phone] Allergies Active Allergy Reactions Criticality Noted Date [...] (See Comments) Low 07/17/2020 Bruising w/skin bleeding Pzutojjm-Ymtrvszsx-Wutye selina Other (See Comments) Low 06/01/2023 Skin [...] Encounters Date Type Department Care Team Description 10/18/2024 Abstract [facility] Oncology and Hematology [facility] [address] [place] [address] Norbert John MD 10/04/2024 4:30 PM CDT Telephone Check Up [facility] Oncology and Hematology [facility] [address] [place] [address] Norbert John MD Lung nodule (Primary Dx) 09/25/2024 External Device Data [facility] ABSTRACTION Provider, Abstract 09/25/2024 External Device Data [facility] ABSTRACTION Provider, Abstract 09/25/2024 External Device Data [facility] ABSTRACTION Provider, Abstract 09/24/2024 3:00 PM CDT Office Visit [facility] Oncology and Hematology [facility] [address] [place] [address] Norbert John MD Lung nodule (Primary Dx); [...] Care Team (Late st Contact Info) Description 01/23/2025 2:30 PM CDT Office Visit [facility] Oncology and Hematology - [place] [address] [facility] [address] [place] [address] Norbert John MD [address] [facility] [address] [place] [address] Health Maintenance Due Date Last [...] 2027 Insurance MEDICARE PART A AND B [employer] [place] [id number] MEDICARE PART A AND B [employer] [facility] [id number] Care Teams Slot Floor Person Relationship Specialty Start Date End Date Stephan Tomas DO [address] [place] [phone] PCP - General Family Practice 09/25/18
[2024-11-08] MEDS: ABATACEPT IVPB (13:35)
[2024-11-08] MEDS: SODIUM CHLORIDE 0.9% IVPB (13:35)
[2024-11-08] MEDS: MALTOSE IVPB (13:35)
[2024-11-08 13:49] VITALS: BP 125/74; PULSE 72; RESP 14; TEMP 36.6; O2SAT 97
[2024-11-08 14:27] VITALS: BP 128/73; PULSE 68; RESP 14
--- NOTE | 2024-11-08 14:28 | PC.NURSE ---
Tolerated monthly Orencia infusion well. SEE MAR/patient care notes.
== END 2024-11-08 13:03 | disposition home or self-care (01) ==
PROVIDERS: PCP Internal Medicine; Visit Provider Internal Medicine Rheumatology
DX: M06.9 Rheumatoid arthritis, unspecified (principal)
CPT/HCPCS: 96365; J0129

== ENCOUNTER 2024-12-10 12:14 | Outpatient (CLI) | payer MEDICARE, SELFPAY ==
[2024-12-10 12:39] VITALS: BMI 28.8
[2024-12-10 12:57] VITALS: BP 109/67; PULSE 66; RESP 14; TEMP 37; O2SAT 98
[2024-12-10 13:01] LABS: Total Protein Urine Random < 5 mg/dL; Ur Ttl Prot Creatinine Ratio 0.02 mg/mg (0-0.20)
[2024-12-10 13:11] LABS: Albumin Level 4.3 g/dL (3.5-5.1); Anion Gap 10 mmol/L (4-12); Blood Urea Nitrogen 32 mg/dL (9-20); Calcium 9.3 mg/dL (8.4-10.2); Carbon Dioxide 28 mmol/L (22-30); Chloride 103 mmol/L (98-107); Estimated CRCL calculation 39 ml/min; Estimated Glomerular Filt Rate 43; Glucose 121 mg/dL (65-110); Osmolality Calculated 299 mOsm/kg (285-295); Potassium 4.3 mmol/L (3.4-5.0); Sodium 141 mmol/L (137-145)
[2024-12-10] MEDS: SODIUM CHLORIDE 0.9% IVPB (13:15)
[2024-12-10] MEDS: MALTOSE IVPB (13:15)
[2024-12-10] MEDS: ABATACEPT IVPB (13:15)
[2024-12-10 14:00] VITALS: BP 108/65; PULSE 66; RESP 14
--- NOTE | 2024-12-10 14:04 | PC.NURSE ---
Tolerated Orencia infusion well. SEE MAR/patient care notes
--- OUTSIDE RECORDS SUMMARY | 2024-12-10 14:16 | XMS_ITS | Clinical Summary ---
Author Organization [facility]ielle [facility] Address [address] [place] [address] Care Team Providers Care Lead Clinical Research Coordinator Name Role Phone Stephan Tomas Primary Care Provider [phone] Allergies Active Allergy Reactions Criticality Noted Date [...] (See Comments) Low 07/17/2020 Bruising w/skin bleeding Wzkhokif-Uxjrjfgdj-Lffyq selina Other (See Comments) Low 06/01/2023 Skin [...] Encounters Date Type Department Care Team Description 11/20/2024 External Device Data [facility] ABSTRACTION Provider, Abstract 11/13/2024 External Device Data [facility] ABSTRACTION Provider, Abstract 10/18/2024 Abstract [facility] Oncology and Hematology [facility] [address] [place] [address] Norbert John MD 10/04/2024 4:30 PM CDT Telephone Check Up [facility] Oncology [facility] [address] [place] [address] Norbert John MD Lung nodule (Primary Dx) 09/25/2024 External Device Data ST[facility] ABSTRACTION Provider, Abstract 09/25/2024 External Device Data [facility] ABSTRACTION Provider, Abstract 09/25/2024 External Device Data STL ABSTRACTION Provider, Abstract 09/24/2024 3:00 PM CDT Office Visit [facility] Oncology [facility] Hematology [facility] [address] [place] [address] Norbert John MD Lung nodule (Primary Dx); [...] 09/24/2024 2:57 PM CDT Plan of Treatment Health Maintenance Due Date [...] 2027 Insurance MEDICARE PART A AND B [facility] [id number] Member Subscriber Plan / Payer (Ef fective 2020-Present) Name:Rima Cano Brian Parmjit Relation to Subscriber:Self Name:Brian Adame Parmjit Payer ID:[id number] (NAIC) Group ID:Not on file Type:Supplemental Address: [place] [id number] MEDICARE PART A AND B [facility] [id number] Care Teams Lead Clinical Research Coordinator Relationship Specialty Start Date End Date Stephan Tomas DO [address] [phone] PCP - General Family Practice 09/25/18
--- OUTSIDE RECORDS SUMMARY | 2024-12-10 14:16 | XMS_ITS | Clinical Summary ---
Author Organization [facility] Address [address] [place] [address] Care Team Providers Care Form Setter/Driver Name Role Phone Unavailable Primary Care Provider [...] COVID-19 Vaccine ( - 2023-2 5 season) 2024 RSV Immunization or 60+ Years (1 - [...]
--- OUTSIDE RECORDS SUMMARY | 2024-12-10 14:16 | XMS_ITS | Clinical Summary ---
Author Organization [facility] Address [address] [place] [address] Care Team Providers Care Director Of Strategy & Mobile Name Role Phone Michael Hussein MD Primary Care Provider [phone] Source Comments [facility],non-owned Affiliates and Associated Physician Practices is amultiple site organization consisting of ambulatory clinics and hospital sitesin [place], [place], [place] and [place]. This disclosure is being madepursuant to the Care Everywhere program and may not contain all information available regarding this patient. Last updated 17.[facility] Allergies Active Allergy Reactions Criticality Noted Date Comments Banana Swelling High 06/20/2024 Bupropion Shortness of Breath,Swelling High 06/09/2020 Clindamycin 09/04/2013 Contrast-Iodinated Agents For Ct/Other Swelling,Skin Reactions 11/19/2019 Doxycycline Other,Swelling High 06/01/2023 Shuts down system Fentanyl Other Medium 07/28/2020 Per patient Gabapentin Psychiatric,Other High 06/01/2023 Uncontrolled talking/laughing Hydrocodone Psychiatric Medium 12/19/2017 Can tolerate oxycodone Lidocaine Rash Medium 09/24/2024 Makes skin burn Meloxicam Other Low 06/01/2023 Kidney issues Methocarbamol Other Low 06/01/2023 System issues Methotrexate Other Low 07/17/2020 brusing Nttchblf-Fdtmmfpmy-Wxtt allie Other Low 06/01/2023 Skin rash/ peel Niacin Shortness of Breath,Nausea and/or Vomiting,Fever High 08/09/2018 Pantoprazole Unknown Low 06/01/2023 Terbinafine Urticaria,Other High 06/01/2023 STROKE LIKE SYMPTOMS Tizanidine Other Medium 06/01/2023 bleeding Tramadol Shortness of Breath High 06/01/2023 Tree Nuts Shortness of Breath,Anaphylaxis,Sw elling High 06/01/2023 Closed throat Zinc Other 12/05/2017 unknown Zolpidem Other Medium [...] 5, then stop. 15 tablet 5 Active Additional Information Patient not taking.Reported on 11/20/2024 Active Problems Problem Noted Date Diagnosed Date snf (current) use of i 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 Rheumatoid arthritis of [facility] sites with negative rheumatoid factor 05/26/2017 Overview [...] 12/02/2022 Assessment & Plan (06/04/2021 11:10 AM SUPERVISOR WHEEL SHOP): Reviewed potential inherent risks with the continued [...] Date Type Department Care Team Description 11/20/2024 9:20 AM CDT Office Visit [facility] - Rheumatology [address] [place] [address], [facility] [address] [place] [address] Tuan Poon DO Rheumatoid arthritis of multiple sites with negative rheumatoid factor (HCC) (Primary Dx); snf (current) use of immunosuppressive biologic (Orencia) 11/20/2024 Orders Only [facility] - Rheumatology [address] [place] [address], [address] [place] [address] Tuan Poon DO from Last 3 Months Immunizations Immunization Administration Dates Next Due Affinio primary monoval ent 12+ yr 0.3mL Purple [...] drink = 0.6 oz pur e alcohol) PHQ-2 Answer Date Recorded Patient Health Questionnaire-2 Score 0 11/20/2024 Sex and Gender Information Value Date Recorded Sex Assigned at Not on file Legal Sex Male 1:56 PM SUPERVISOR WHEEL SHOP Gender Identity Not on file Sexual Orientation Not on file Occupation Industry Job Start Date Job End Date retired Not on file Not on file Not on file Last Filed Vital Signs Vital Sign Reading Time Taken Comments Blood Pressure 128/80 11/20/2024 9:08 AM CDT Pulse 63 11/20/2024 9:08 AM CDT Temperature 36.1 C (97 F) 11/20/2024 9:08 AM CDT Respiratory Rate 16 11/20/2024 9:08 AM CDT Oxygen Saturation 97% 11/20/2024 9:08 AM CDT Inhaled Oxygen Concentration - - Weight 98.9 kg (218 lb) 11/20/2024 9:08 AM CDT Height 177.8 cm (5' 10) 12/01/2023 8:45 AM CDT Body Mass Index 31.28 12/01/2023 8:45 AM CDT Plan of Treatment Upcoming Encounters Date Type Department Care Team (Late st Contact Info) Description 10/30/2025 10:00 AM CDT Office Visit [facility] - Rheumatology [address] [facility], [address] [place] [address] Tuan Poon DO [address] [facility] [place] [address] Health Maintenance Due Date Last [...] Additional history exists COVID-19 VACCINE (3 - 2024- season) 2024 06/19/2020, 05/22/2020 INFLUENZA VACCINE (#1) 2024 Respiratory Syncytial Virus (RSV) Vaccine Pt: or over 60 yrs (1 - 1-dose 75+ series) 2027 HEPATITIS C SCREENING Completed 02/06/2020, 019 DEPRESSION SCREENING Completed 11/20/2024 HIB VACCINE Aged Out No longer eligi [...] this topic Medical Devices Implanted Type Area Refrigerator Assembler Device Identifier Shelf Expiration Date Model / Serial / Lot Graft Bone Alfs + Dbm 5ml Ptty Implanted:Qty: 1 on 12/20/2017 by Easton Paula DO at [facility] N/A: Spine Lumbar Allosource 04/27/2019 [id number] / / [id number] [place] Set Screw Implanted:Qty: 4 on 12/20/2017 by Easton Paula DO at [facility] N/A: Spine Lumbar [employer] [id number] / / 6.5x50mm Screw Implanted:Qty: 2 on 12/20/2017 by Easton Paula DO at [facility] N/A: Spine Lumbar [employer] [id number] / / 6.5x55mm Screw Implanted:Qty: 1 on 12/20/2017 by Easton Paula DO at [facility] N/A: Spine Lumbar [employer] [id number] / / 6.5x60mm Screw Implanted:Qty: 1 on 12/20/2017 by Easton Paula DO at [facility] N/A: Spine Lumbar [employer] [id number] / / 35mm Flavio Implanted:Qty: 1 on 12/20/2017 by Easton Paula DO at [facility] N/A: Spine Lumbar [employer] [id number] / / 40mm Flavio Implanted:Qty: 1 on 12/20/2017 by Easton Paula DO at [facility] N/A: Spine Lumbar [employer] [id number] / / Procedures Procedure Name Priority Date/Time Associated Diagnosis Comments COMPREHENSIVE METABOLIC PANEL 11/05/2020 3:48 PM CDT HEPATITIS SCREEN ACUTE 0 3:20 PM SUPERVISOR WHEEL SHOP ENDOSCOPY, COLON, SCREENING Routine 01/31/2012 1:26 PM SUPERVISOR WHEEL SHOP from Last 3 Months or Most Recently Relevant to Health Maintenance Results * (ABNORMAL) COMPREHENSIVE METABOLIC PANEL (11/05/2020 3:48 PM CDT) [facility] Glucose 99 65 - 99 mg/dL [facility] Comment: Fasting reference interval BUN 32(H) 7 - 25 mg/dL [facility] Creatinine 1.36(H) 0.70 - 1.25 mg/dL [facility] Comment: For patients >49 years of age, the reference limit for Creatinine is approximately 13% higher for people identified as -Zambian. eGFR by MDRD 53(L) > OR = [...] 46 U/L [facility] Comment: Test Performed at: [facility] [address] [place] [address] SHEILA PÉREZ DO,MPH 11/05/2020 3:48 PM CDT 11/05/2020 3:49 PM CDT Narendra Spencer MD LAB - CHEMISTRY ORDERABLES Final Result Performing Organization Address City/State/[facility] Co de Phone Number [facility] [address] [place] [address] * HEPATITIS SCREEN ACUTE (02/06/2020 3:20 PM SUPERVISOR WHEEL SHOP) Hepatitis A Virus Antibody IgM NON-REACT LINDA NON-REACT LINDA [facility] Comment: For additional information, please refer to http://[employer].Valopaa/faq/RUP707 (This link is being provided for informational/ [...] a test for HCV RNA (test code 42152) is suggested. For additional information please refer to http://[employer].Valopaa/faq/NTK28q5 (This link is being provided for informational/ educational purposes only.) Test Performed at: [facility] [address] [address] [address] SHEILA PÉREZ DO,MPH 02/06/2020 3:20 PM SUPERVISOR WHEEL SHOP 02/06/2020 3:21 PM SUPERVISOR WHEEL SHOP us Narendra Spencer MD LAB - CHEMISTRY ORDERABLES Final Result Performing Organization Address [facility] Co de Phone Number [facility] [address] [place] [address] * ENDOSCOPY, COLON, SCREENING (01/31/2012 1:26 PM SUPERVISOR WHEEL SHOP) Narrative Transcriptions Amaury Noyola MD - 01/31/2012 1:26 PM CST us Amaury Noyola MD GI PROCEDURE ORDERABLES Final Re sult Performing Organization Address City/[facility] Co de Phone Number [facility] ENDOSCOPY from Last 3 Months or Most Recently Relevant to Health Maintenance Insurance MEDICARE MEDICARE [facility] MEDICARE [facility] MEDICARE AARP BC/BLUE BLUE CROSS BLUE [facility] Advance Directives Documents on File Type Date Recorded 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
== END 2024-12-10 12:15 | disposition home or self-care (01) ==
PROVIDERS: PCP Internal Medicine; Visit Provider Internal Medicine Nephrology
DX: M06.09 Rheumatoid arthritis without rheumatoid factor, multiple sites (principal); I12.9 Hypertensive chronic kidney disease with stage 1 through stage 4 chronic kidney disease, or unspecified chronic kidney disease; N18.31 Chronic kidney disease, stage 3a; N25.81 Secondary hyperparathyroidism of renal origin; E55.9 Vitamin D deficiency, unspecified
CPT/HCPCS: 36415; 80069; 82306; 82570; 83970; 84156; 96365; J0129

== ENCOUNTER 2025-01-08 12:53 | Outpatient (CLI) | payer MEDICARE, SELFPAY ==
--- OUTSIDE RECORDS SUMMARY | 2024-03-10 16:30 | XMS_ITS ---
Author Organization [facility] Address [address] [id number] Care Team Providers Care Senior Label Specialist Name Role Phone Ronald Cristobal Unavailable [phone] Migration, Provider Unavailable Unavailable Allergies Allergen (clinical drug ingredient) Drug/Non Drug Allergy documented on EMR Reaction Allergy Type Onset Date Status HYDROCODONE CP (uncoded) Unknown Allergy Active amoxicillin / clavulanate Augmentin Unknown Drug Allergy Active clindamycin Clindamycin Unknown Drug Allergy Act maritza REASON FOR VISIT [facility] To [facility] Conversion Encounter Medications Medication SIG (Take, [...] review and pick correct strength-formula tion from BusyFlow options. If intended option is not shown, [...] Location Date Provider Diagnosis [facility] [place] [address] [address] [phone] 03/10/2024 Provider Migration ACUTE OTITIS EXTERNA NEC [...] Notes * Brian GODINEZDOB:1950 (74 yo M)Acc No.[id number]:03/10/2024 Patient: Brian Salazar Provider: Veronica claire Migration :1950 A ge:74 Y S ex:Male Date:03/10/2024 [facility] Subjective: * Chief Complaints: * [facility] * Medications: T akingAmoxicillin 500 MG Capsule 1 cap(s) orally 3 times a day oxyCODONE HCl 7.5 MG TABLET 1 TAB(S) ORALLY EVERY 6 HOURS , Notes to Pharmacist: *Please review and pick correct strength-formulation from Uranium E[employer]pan options. If intended option is not shown, [...] *Please review and pick correct strength-formulation from Uranium Energ[employer]pan options. If intended option is not shown, [...] Electronic signature of Prov ider Migration on 01/08/2025 at 02:40 PM CDT Sign off status: Pending * Provider: Veronica claire Migration Date: 05/11/2023 Generated for Margie hess/Radha/Brad on: 02:40 PM CDT
[2025-01-08 13:00] VITALS: BMI 28.8
[2025-01-08 13:26] VITALS: BP 132/70; PULSE 68; RESP 14; TEMP 36.4; O2SAT 97
[2025-01-08] MEDS: MALTOSE IVPB (13:30)
[2025-01-08] MEDS: ABATACEPT IVPB (13:30)
[2025-01-08] MEDS: SODIUM CHLORIDE 0.9% IVPB (13:30)
[2025-01-08 14:18] VITALS: BP 129/79; PULSE 68; RESP 14; O2SAT 97
--- NOTE | 2025-01-08 14:21 | PC.NURSE ---
Patient tolerated Orencia infusion well. SEE MAR/patient care notes.
--- OUTSIDE RECORDS SUMMARY | 2025-01-08 14:40 | XMS_ITS | Clinical Summary ---
Author Organization [facility] Address [address] [place] [address] Care Team Providers Care Market Development Executive Name Role Phone Stephan Tomas Primary Care Provider [phone] Allergies Active Allergy Reactions Criticality Noted Date [...] (See Comments) Low 07/17/2020 Bruising w/skin bleeding Ijyunbae-Yekszppfq-Hlpqx selina Other (See Comments) Low 06/01/2023 Skin [...] Apply 1 Application to affected area daily. Active ALPRAZolam (XANAX) 2 mg tablet 4 Active Active Problems No known active problems Encounters Date Type Department Care Team Description 01/01/2025 External Device Data [facility] ABSTRACTION Provider, Abstract 12/12/2024 External Device Data [facility] ABSTRACTION Provider, Abstract 11/20/2024 External Device Data [facility] ABSTRACTION Provider, Abstract 11/13/2024 External Device Data [facility] ABSTRACTION Provider, Abstract 10/18/2024 Abstract [facility] Oncology and Hematology - [place] [address] [place] [address] Norbert John MD from Last 3 Months Family History Medical [...] 2027 Insurance MEDICARE PART A AND B [facility] [id number] MEDICARE PART A AND B [facility] [id number] Care Teams Market Development Executive Relationship Specialty Start Date End Date Stephan Tomas DO [address] [phone] PCP - General Family Practice 09/25/18
--- OUTSIDE RECORDS SUMMARY | 2025-01-08 14:40 | XMS_ITS | Patient Health Record ---
Author Organization [facility] Address [address] [facility] [address] [place], [place] [address] Care Team Providers Care Public Accountant Name Role Phone Ronald Cristobal Unavailable [phone] Migration, Provider Unavailable Unavailable Allergies Allergen (clinical drug ingredient) Drug/Non Drug Allergy documented on EMR Reaction Allergy Type Onset Date Status HYDROCODONE CP (uncoded) Unknown Allergy Active amoxicillin / clavulanate Augmentin Unknown Drug Allergy Active clindamycin Clindamycin Unknown Drug Allergy Act maritza Reason For Referral No Information Medications Medication SIG (Take, Route, Frequency, Duration) Notes Start Date End Date Status CIPRODEX 0.3%-0.1% SUSPENSION 4 GTT IN EACH [...] from Quick Search* Active CLOBETASOL OINTMENT 0.05% SOLUTION 1 ALEXIS APPLIED TOPICALLY 2 TIMES A DAY; Duration: 30 DAY(S) *Please review for potential replacement for e-prescription and drug interaction check* Active Amoxicillin 500 MG Capsule 1 cap(s) [...] Duration: 30 day(s) Active predniSONE 20 MG Tablet 1 tab(s) orally once a day; Duration: 7 day(s) Active TYLENOL WITH CODEINE #3 5/325MG TABLET 1 TAB(S) ORALLY EVERY 6 HOURS *Please review for potential replacement for e-prescription and drug interaction check* Active Social History Social History Additional Details Category Social Info Options Details Social History Smokeless Tobacco No Passive smoke exp: No Problems Problem Type SNOMED Code ICD Code Onset Dates Problem Status W/U Status Risk Notes Problem Information temporarily unavailable ACUTE OTITIS EXTERNA NEC (380.22) Active confirmed lt Problem Information temporarily unavailable Chronic infection of sinus NOS (473.9) Active confirmed Problem Information temporarily unavailable Otalgia NOS (388.70) Active confirmed lt Encounters Encounter Location Date Provider Diagnosis [facility] [address] [facility] [address] [place], [place] [id number] 03/10/2024 Provider Migration ACUTE OTITIS EXTERNA NEC 380.22 Assessments Encounter Date Diagnosis (ICD Code) Assessment Notes Treatment Notes Treatment Clinical Notes Section Notes 03/10/2024 ACUTE OTITIS EXTERNA NEC (ICD9-CM - 380.22) lt Plan Of Treatment No Information Insurance Providers Payer Name Payer Address Payer Phone Subscriber Number Group Number Insured Name Patient Relationship to Insured Coverage Start Date Coverage End Date Christiane [facility] [address] [place] [address] [id number] Brian Abarca Self - patient is the [...]
--- OUTSIDE RECORDS SUMMARY | 2025-01-08 14:41 | XMS_ITS | Clinical Summary ---
Author Organization [facility] Address [address] [facility] [place] [address] Care Team Providers Care Retail Interior Designer Name Role Phone Michael Hussein MD Primary Care Provider [phone] Source Comments [facility],non-owned Affiliates and Associated Physician Practices is amultiple site organization consisting of ambulatory clinics and hospital sitesin [place], [place], [place] and [place]. This disclosure is being madepursuant to the Care Everywhere program and may not contain all information available regarding this patient. 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) 11/20/2024 Orders Only [facility] - Rheumatology [address] [place] [address], [address] [place] [address] Tuan Poon DO from Last 3 Months Immunizations Immunization Administration Dates Next Due [employer] primary monoval ent 12+ yr 0.3mL Purple [...] on file Legal Sex Male 1:56 PM MEDIA RELATIONS INTERN Gender Identity Not on file Sexual Orientation [...] Description 10/30/2025 10:00 AM CDT Office Visit [facility] - Rheumatology [address] [facility] [address], [address] [place] [address] Tuan Poon DO [address] [address] [place] [address] Health Maintenance Due Date Last [...] this topic Medical Devices Implanted Type Area Merchandise Worker Device Identifier Shelf Expiration Date Model / Serial / Lot Graft Bone Alfs + Dbm 5ml Ptty Implanted:Qty: 1 on 12/20/2017 by Easton Paula DO at [facility] N/A: Spine Lumbar [employer]ource 04/27/2019 [id number] / / [id number] [place] Set Screw Implanted:Qty: 4 on 12/20/2017 by Easton Paula DO at [facility] N/A: Spine Lumbar [employer] [id number] / / 6.5x50mm Screw Implanted:Qty: 2 on 12/20/2017 by Easton Paula DO at [facility] N/A: Spine Lumbar [employer] [id number] / / 6.5x55mm Screw Implanted:Qty: 1 on 12/20/2017 by Easton Paula DO at [facility] N/A: Spine Lumbar [employer] [id number] / / 6.5x60mm Screw Implanted:Qty: 1 on 12/20/2017 by Easton Paula DO at [facility] N/A: Spine Lumbar [employer] [id number] / / 35mm Flavio Implanted:Qty: 1 on 12/20/2017 by Easton Paula DO at [facility] N/A: Spine Lumbar [employer] [id number] / / 40mm Flavio Implanted:Qty: 1 on 12/20/2017 by Easton Paula DO at [facility] N/A: Spine Lumbar [employer] [id number] / / Procedures Procedure Name Priority Date/Time Associated Diagnosis Comments COMPREHENSIVE METABOLIC PANEL 11/05/2020 3:48 PM CDT HEPATITIS SCREEN ACUTE 0 3:20 PM MEDIA RELATIONS INTERN ENDOSCOPY, COLON, SCREENING Routine 01/31/2012 1:26 PM MEDIA RELATIONS INTERN from Last 3 Months or Most Recently Relevant to Health Maintenance Results * (ABNORMAL) COMPREHENSIVE METABOLIC PANEL (11/05/2020 3:48 PM CDT) [facility] Glucose 99 65 - 99 mg/dL [facility] Comment: Fasting reference interval BUN 32(H) 7 - 25 mg/dL [facility] Creatinine 1.36(H) 0.70 - 1.25 mg/dL [facility] Comment: For patients >49 years of age, the reference limit for Creatinine is approximately 13% higher for people identified as -Syrian. eGFR by MDRD 53(L) > OR = [...] 46 U/L [facility] Comment: Test Performed at: [facility] [address] [place] [address] SHEILA PÉREZ DO,MPH 11/05/2020 3:48 PM CDT 11/05/2020 3:49 PM CDT Narendra Spencer MD LAB - CHEMISTRY ORDERABLES Final Result Performing Organization Address City/State/[facility] Co de Phone Number [facility] [address] [place] [address] * HEPATITIS SCREEN ACUTE (02/06/2020 3:20 PM MEDIA RELATIONS INTERN) Hepatitis A Virus Antibody IgM NON-REACT LINDA NON-REACT LINDA [facility] Comment: For additional information, please refer to http://Zonder.Totally Interactive Weather/faq/AQW536 (This link is being provided for informational/ [...] a test for HCV RNA (test code 19654) is suggested. For additional information please refer to http://Zonder.Totally Interactive Weather/faq/YTU52y0 (This link is being provided for informational/ educational purposes only.) Test Performed at: [facility] [address] [place] [address] SHEILA PÉREZ DO,MPH 02/06/2020 3:20 PM MEDIA RELATIONS INTERN 02/06/2020 3:21 PM MEDIA RELATIONS INTERN us Narendra Spencer MD LAB - CHEMISTRY ORDERABLES Final Result Performing Organization Address [facility] Co de Phone Number [facility] [address] [place] [address] * ENDOSCOPY, COLON, SCREENING (01/31/2012 1:26 PM MEDIA RELATIONS INTERN) Narrative Transcriptions Amaury Noyola MD - 01/31/2012 1:26 PM CST us Amaury Noyola MD GI PROCEDURE ORDERABLES Final Re sult Performing Organization Address City/[facility] Co de Phone Number [facility] ENDOSCOPY from Last 3 Months or Most Recently Relevant to Health Maintenance Insurance MEDICARE MEDICARE [facility] MEDICARE [facility] MEDICARE AARP BC/BLUE BLUE CROSS BLUE 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
== END 2025-01-08 12:54 | disposition home or self-care (01) ==
PROVIDERS: PCP Internal Medicine; Visit Provider Internal Medicine Rheumatology
DX: M06.09 Rheumatoid arthritis without rheumatoid factor, multiple sites (principal)
CPT/HCPCS: 96365; J0129

== ENCOUNTER 2025-01-17 16:14 | Outpatient (CLI) | payer MEDICARE, SELFPAY ==
--- OUTSIDE RECORDS SUMMARY | 2024-03-10 16:30 | XMS_ITS ---
Author Organization [facility] Address [address] [phone] Care Team Providers Care Dairy Husbandman Name Role Phone Ronald Cristobal Unavailable [phone] Migration, Provider Unavailable Unavailable Allergies Allergen (clinical drug ingredient) Drug/Non Drug Allergy documented on EMR Reaction Allergy Type Onset Date Status HYDROCODONE CP (uncoded) Unknown Allergy Active amoxicillin / clavulanate Augmentin Unknown Drug Allergy Active clindamycin Clindamycin Unknown Drug Allergy Act maritza REASON FOR VISIT [facility] To [facility] Conversion Encounter Medications Medication SIG (Take, [...] review and pick correct strength-formula tion from PayOrPass options. If intended option is not shown, [...] Location Date Provider Diagnosis [facility] [place] [address] [address] [phone] 03/10/2024 Provider Migration ACUTE OTITIS EXTERNA NEC [...] Notes * Brian GODINEZDOB:1950 (74 yo M)Acc No.[id number]:03/10/2024 Patient: Brian Salazar Provider: Veronica claire Migration :1950 A ge:74 Y S ex:Male Date:03/10/2024 [facility] Subjective: * Chief Complaints: [facility] * Medications: T akingAmoxicillin 500 MG Capsule 1 cap(s) orally 3 times a day oxyCODONE HCl 7.5 MG TABLET 1 TAB(S) ORALLY EVERY 6 HOURS , Notes to Pharmacist: *Please review and pick correct strength-formulation from PerspecSysspan options. If intended option is not shown, [...] *Please review and pick correct strength-formulation from PerspecSysspan options. If intended option is not shown, [...] Electronic signature of Prov ider Migration on 01/17/2025 at 09:40 AM CDT Sign off status: Pending * Provider: Veronica claire Migration Date: 05/11/2023 Generated for Margie hess/Radha/Brad on: 09:40 AM CDT
--- NOTE | ~2025-01-17 | XR_ITS ---
XR lumbar spine 2-3V Indication: LOW BACK PAIN Comparison: None Findings: Moderate loss of vertebral height with grade 1 retrolisthesis of L2 on L3 and L3 on L4, no acute fracture, posterior fixation of L4 on L5, the hardware is intact. Moderate to severe loss of disc height at L1-2 and L2-3. Soft tissues unremarkable Impression: No acute abnormality. Reviewed, dictated and finalized at location P. Impression: No acute abnormality.
--- NOTE | ~2025-01-17 | XR_ITS ---
XR thoracic spine 3V Indication: LOW BACK PAIN Comparison: None Findings: Moderate loss of vertebral height throughout, no fracture or subluxation. Moderate osteopenia. Severe loss of disc height throughout with anterior osteophyte formation noted throughout the thoracic spine. Soft tissues unremarkable Impression: No acute abnormality. Reviewed, dictated and finalized at location P. Impression: No acute abnormality.
--- OUTSIDE RECORDS SUMMARY | 2025-01-17 16:46 | XMS_ITS | Clinical Summary ---
Author Organization [facility] Address [address] [place] [address] Care Team Providers Care General Office Assistant Name Role Phone Unavailable Primary Care Provider [...] Vaccine ( - 2023-2 5 season) 2024 Influenza Adult (#1) 2024 RSV Immunization or 60+ Years (1 - 1-dose 75+ series) 2027 Hepatitis A Vaccines Aged Out No long er eligible based on patient's age to complete this topic Meningococcal B Vaccine Aged Out No l onger eligible based on patient's age to complete this topic Meningococcal Vaccine Aged Out No mynor rosalinda eligible based on patient's age to complete this topic RSV Immunizations Under 20 Months Aged Out No longer eligible based on patient's age to complete this topic
--- OUTSIDE RECORDS SUMMARY | 2025-01-17 16:46 | XMS_ITS | Patient Health Record ---
Author Organization [facility] Address [address] [facility] [address] [place], [place] [address] Care Team Providers Care Button Spindler Name Role Phone Ronald Critsobal Unavailable [phone] Migration, Provider Unavailable Unavailable Allergies Allergen (clinical [...] Status Risk Notes Problem Acute otitis externa (52060889) ACUTE OTITIS EXTERNA NEC (380.22) Active confirmed lt Problem Chronic infection of sinus (31665259) Chronic infection of sinus NOS (473.9) Active confirmed Problem Pain of ear (finding) (273292255) Otalgia NOS (388.70) Active confirmed lt Encounters Encounter Location Date Provider Diagnosis [facility] [address] [facility], [place] [address] 03/10/2024 Provider Migration ACUTE OTITIS EXTERNA NEC 380.22 Assessments Encounter Date Diagnosis (ICD Code) Assessment Notes Treatment Notes Treatment Clinical Notes Section Notes 03/10/2024 ACUTE OTITIS EXTERNA NEC (ICD9-CM - 380.22) lt Plan Of Treatment No Information Insurance Providers Payer Name Payer Address Payer Phone Subscriber Number Group Number Insured Name Patient Relationship to Insured Coverage Start Date Coverage End Date Christiane [facility] [address] [place] [address] [id number] Brian Abarca Self - patient is the [...]
--- OUTSIDE RECORDS SUMMARY | 2025-01-17 16:47 | XMS_ITS | Clinical Summary ---
Author Organization [facility] danielle [facility] Address [address] [place] [address] Care Team Providers Care Sales Account Leader Name Role Phone Stephan Tomas Primary Care Provider [phone] Allergies Active Allergy Reactions Criticality Noted Date [...] (See Comments) Low 07/17/2020 Bruising w/skin bleeding Ydedwwms-Rzshtwngr-Zcdzu selina Other (See Comments) Low 06/01/2023 Skin [...] Data [facility] ABSTRACTION Provider, Abstract 10/18/2024 Abstract [facility]ematology - [place] [address] [place] [phone] Norbert John MD from Last 3 [...] 2027 Insurance MEDICARE PART A AND B [facility] [id number] MEDICARE PART A AND B [facility] [id number] Care Teams Sales Account Leader Relationship Specialty Start Date End Date Stephan Tomas DO [address] [phone] PCP - General Family Practice 09/25/18
--- OUTSIDE RECORDS SUMMARY | 2025-01-17 16:47 | XMS_ITS | Clinical Summary ---
Author Organization [facility] [employer] Address [address] [place] [address] Care Team Providers Care Weatherization Technician Name Role Phone Michael Hussein MD Primary Care Provider [phone] Source Comments [facility],non-owned Affiliates and Associated Physician Practices is amultiple site organization consisting of ambulatory clinics and hospital sitesin [place], [place], [place] and [place]. This disclosure is being madepursuant to the Care Everywhere program and may not contain all information available regarding this patient. Last updated 17.[facility] Allergies Active Allergy Reactions Criticality Noted Date [...] System issues Methotrexate Other Low 07/17/2020 brusing Htdayknr-Bojkrxllx-Sxju allie Other Low 06/01/2023 Skin rash/ peel [...] does offer some benefit. 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) 11/20/2024 Orders Only [facility] - Rheumatology [address] [place] [address], [address] [place] [address] Tuan Poon DO from Last 3 Months Immunizations Immunization Administration Dates Next Due Gem primary monoval ent 12+ yr 0.3mL Purple [...] on file Legal Sex Male 1:56 PM INSURANCE BUSINESS ANALYST Gender Identity Not on file Sexual Orientation [...] Description 10/30/2025 10:00 AM CDT Office Visit [facility] - Rheumatology [address], [address] [place] [address] Tuan Poon DO [address] [place] [address] Health Maintenance Due Date Last Done Comments COLOGUARD (AGES 45-75) - COLON CA SCREENING 1950 CT COLONOGRAPHY - COLON CA SCREENING 1950 FIT - COLON CA SCREENING 1950 FLEX SIG - COLON CA SCREENING 1950 MEDICARE AWV 12 MONTHS 1950 DTAP/TDAP/TD VACCINES (1 - Tdap) 1971 PNEUMOCOCCAL VACCINE 50+ (1 of 2 - PCV) 1971 ZOSTER VACCINE (1 of 2) 2002 HEPATITIS [...] this topic Medical Devices Implanted Type Area Mumps Developer Device Identifier Shelf Expiration Date Model / Serial / Lot Graft Bone Alfs + Dbm 5ml Ptty Implanted:Qty: 1 on 12/20/2017 by [place] Paula DO at [facility] N/A: Spine Lumbar Allosource 04/27/2019 [id number] / / [id number] [place] Set Screw Implanted:Qty: 4 on 12/20/2017 by [place] Paula DO at [facility] N/A: Spine Lumbar [employer] [id number] / / 6.5x50mm Screw Implanted:Qty: 2 on 12/20/2017 by [place] Paula DO at [facility] N/A: Spine Lumbar [employer] [id number] / / 6.5x55mm Screw Implanted:Qty: 1 on 12/20/2017 by [place] Paula DO at [facility] N/A: Spine Lumbar [employer] [id number] / / 6.5x60mm Screw Implanted:Qty: 1 on 12/20/2017 by [place] Paula DO at [facility] N/A: Spine Lumbar [employer] [id number] / / 35mm Flavio Implanted:Qty: 1 on 12/20/2017 by [place] Paula DO at [facility] N/A: Spine Lumbar [employer] [id number] / / 40mm Flavio Implanted:Qty: 1 on 12/20/2017 by [place] Paula DO at [facility] N/A: Spine Lumbar [employer] [id number] / / Procedures Procedure Name Priority Date/Time Associated Diagnosis Comments COMPREHENSIVE METABOLIC PANEL 11/05/2020 3:48 PM CDT HEPATITIS SCREEN ACUTE 0 3:20 PM INSURANCE BUSINESS ANALYST ENDOSCOPY, COLON, SCREENING Routine 01/31/2012 1:26 PM INSURANCE BUSINESS ANALYST from Last 3 Months or Most Recently Relevant to Health Maintenance Results * (ABNORMAL) COMPREHENSIVE METABOLIC PANEL (11/05/2020 3:48 PM CDT) [facility] Glucose 99 65 - 99 mg/dL [facility] Comment: Fasting reference interval BUN 32(H) 7 - 25 mg/dL [facility] Creatinine 1.36(H) 0.70 - 1.25 mg/dL [facility] Comment: For patients >49 years of age, the reference limit for Creatinine is approximately 13% higher for people identified as -Finnish. eGFR by MDRD 53(L) > OR = [...] 46 U/L [facility] Comment: Test Performed at: [facility] [address] [place] [address] SHEILA PÉREZ DO,MPH 11/05/2020 3:48 PM CDT 11/05/2020 3:49 PM CDT Narendra Spencer MD LAB - CHEMISTRY ORDERABLES Final Result Performing Organization Address City/State/[facility] Co de Phone Number [employer] [address] [place] [address] * HEPATITIS SCREEN ACUTE (02/06/2020 3:20 PM INSURANCE BUSINESS ANALYST) Hepatitis A Virus Antibody IgM NON-REACT LINDA NON-REACT LINDA [facility] Comment: For additional information, please refer to http://Attensity.Jixee/faq/IYP055 (This link is being provided for informational/ [...] a test for HCV RNA (test code 29930) is suggested. For additional information please refer to http://Attensity.Jixee/faq/DJH70g9 (This link is being provided for informational/ educational purposes only.) Test Performed at: [facility] [address] [address] SHEILA PÉREZ DO,MPH 02/06/2020 3:20 PM INSURANCE BUSINESS ANALYST 02/06/2020 3:21 PM INSURANCE BUSINESS ANALYST us Narendra Spencer MD LAB - CHEMISTRY ORDERABLES Final Result Performing Organization Address [facility] Co de Phone Number [employer] [address] [place] [address] * ENDOSCOPY, COLON, SCREENING (01/31/2012 1:26 PM INSURANCE BUSINESS ANALYST) Narrative Transcriptions Amaury Noyola MD - 01/31/2012 1:26 PM CST us Amaury Noyola MD GI PROCEDURE ORDERABLES Final Re sult Performing Organization Address City/[facility] Co de Phone Number [facility] ENDOSCOPY from Last 3 Months or Most Recently Relevant to Health Maintenance Insurance MEDICARE MEDICARE [facility] MEDICARE [facility] MEDICARE AARP BC/BLUE BLUE CROSS BLUE [facility] Advance Directives Documents on File Type Date Recorded 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
== END 2025-01-17 16:15 | disposition home or self-care (01) ==
PROVIDERS: PCP Internal Medicine; Visit Provider Nurse Practitioner Family
DX: M54.50 Low back pain, unspecified (principal)
CPT/HCPCS: 72072; 72100

== ENCOUNTER 2025-01-21 12:29 | Outpatient (CLI) | payer MEDICARE, SELFPAY ==
--- OUTSIDE RECORDS SUMMARY | 2024-03-10 16:30 | XMS_ITS ---
Author Organization [facility] Address [address] [phone] Care Team Providers Care Feed Project Engineer Name Role Phone Ronald Cristobal Unavailable [phone] Migration, Provider Unavailable Unavailable Allergies Allergen (clinical drug ingredient) Drug/Non Drug Allergy documented on EMR Reaction Allergy Type Onset Date Status HYDROCODONE CP (uncoded) Unknown Allergy Active amoxicillin / clavulanate Augmentin Unknown Drug Allergy Active clindamycin Clindamycin Unknown Drug Allergy Act maritza REASON FOR VISIT [facility] To [facility] Conversion Encounter Medications Medication SIG (Take, Route, [...] review and pick correct strength-formula tion from Rithmio options. If intended option is not shown, [...] Location Date Provider Diagnosis [facility] [place] [address] [phone] 03/10/2024 Provider Migration ACUTE OTITIS EXTERNA NEC [...] Notes * Brian GODINEZDOB:1950 (74 yo M)Acc No.[id number]:03/10/2024 Patient: Brian Salazar Provider: Veronica claire Migration :1950 A ge:74 Y S ex:Male Date:03/10/2024 [facility] Subjective: * Chief Complaints: * [facility] Encounter * Medications: T akingAmoxicillin 500 MG Capsule 1 cap(s) orally 3 times a day oxyCODONE HCl 7.5 MG TABLET 1 TAB(S) ORALLY EVERY 6 HOURS , Notes to Pharmacist: *Please review and pick correct strength-formulation from SpotHerospan options. If intended option is not shown, [...] *Please review and pick correct strength-formulation from SpotHerospan options. If intended option is not shown, [...] Electronic signature of Prov ider Migration on 01/21/2025 at 01:50 PM CDT Sign off status: Pending * Provider: Veronica claire Migration Date: 05/11/2023 Generated for Margie hess/Radha/Brad on: 01:50 PM CDT
--- NOTE | ~2025-01-21 | DEXA_ITS ---
Bone Density Report Name: JIN WYNN Age: 74 Sex: Male Ethnicity: White Date of : 1950 Indication: screening for osteoporosis; height loss; prior fracture; cancer; asthma or emphysema; end stage renal disease; rheumatoid arthritis; Referring Provider: REJIPAXTON Study: Bone densitometry was performed. Exam Date: January 21, 2025 Accession number: [id number] Bone Density: Region BMD T-score Z-score Classification AP Spine(L1-L4) 1.284 1.8 2.7 Normal Femoral Neck (Left) 0.685 -1.8 -0.5 Osteopenia Total Hip (Left) 0.905 -0.8 -0.1 Normal Femoral Neck (Right) 0.709 -1.6 -0.4 Osteopenia Total Hip (Right) 0.954 -0.5 0.2 Normal Femoral Neck Mean 0.697 -1.7 -0.4 Osteopenia Total Hip Mean 0.930 -0.7 0.1 Normal World Health Organization criteria for BMD impression classify patients as: Normal (T-score at or above -1.0), Osteopenia (T-score between -1.0 and -2.5), or Osteoporosis (T-score at or below -2.5). 10-year Fracture Risk: FRAX not reported because: Prior hip or vertebral fracture Clinical Information Provided by Patient: Have had a previous hip or vertebral fracture Has had a low trauma fracture Has rheumatoid arthritis Has used the following medications: Vitamin D Has the following medical conditions: Asthma or Emphysema, Cancer, End stage renal disease Patient maximum height was 72 No regular weight bearing exercise Does not regularly consume dairy products Drinks caffeinated beverages Impression: The patient has low bone mass, based on the Left Femoral Neck T-score. The patient has risk factors, including: previous fracture. Discussion: INCREASED RISK OF FRACTURE DUE TO HISTORY OF LOW TRAUMA FRACTURE. The patient's previous fracture puts the patient at high risk of a future fracture. In untreated patients, the risk of osteoporotic fracture increases approximately two-fold for each 1.0 SD decrease in T-score. Low bone density is not the only risk factor for fracture; also consider factors such as patient's age, frailty or poor health, risk of falling, risk of injury, previous osteoporotic fracture, family history of osteoporosis, cigarette smoking, low body weight, etc. Not everyone with a low trauma fracture has osteoporosis; osteomalacia and other metabolic bone disorders should also be considered. Patients who have osteoporosis should be evaluated for specific diseases and conditions (secondary causes) that may cause or contribute to bone loss and fracture risk. National Osteoporosis Foundation (NOF) recommends pharmacologic intervention for patients with a prior low trauma hip or vertebral fracture regardless of BMD T-score. The patient should follow a healthful lifestyle (good nutrition with adequate calcium and vitamin D, and appropriate weight-bearing exercise). Follow-Up: Consider a repeat BMD and Vertebral Fracture Assessment (VFA) exam in 2 years or sooner if medically necessary, to reassess this patient's status. Reported by: LETY on 01/21/2025 1:13:00 PM. Reviewed, dictated and finalized at location A.
--- OUTSIDE RECORDS SUMMARY | 2025-01-21 13:50 | XMS_ITS | Patient Health Record ---
Author Organization [facility] Address [address] [facility] [address] [place], [place] [address] Care Team Providers Care Traffic Monitor Specialist Name Role Phone Ronald Cristobal Unavailable [phone] Migration, Provider Unavailable Unavailable Allergies Allergen (clinical [...] Status Risk Notes Problem Acute otitis externa (51128548) ACUTE OTITIS EXTERNA NEC (380.22) Active confirmed lt Problem Chronic infection of sinus (90833717) Chronic infection of sinus NOS (473.9) Active confirmed Problem Pain of ear (finding) (695509062) Otalgia NOS (388.70) Active confirmed lt Encounters Encounter Location Date Provider Diagnosis [facility] [address] [facility] [address] 03/10/2024 Provider Migration ACUTE OTITIS EXTERNA NEC 380.22 Assessments Encounter Date Diagnosis (ICD Code) Assessment Notes Treatment Notes Treatment Clinical Notes Section Notes 03/10/2024 ACUTE OTITIS EXTERNA NEC (ICD9-CM - 380.22) lt Plan Of Treatment No Information Insurance Providers Payer Name Payer Address Payer Phone Subscriber Number Group Number Insured Name Patient Relationship to Insured Coverage Start Date Coverage End Date [facility] [address] [place] [address] [id number] Brian Abarca Self - patient is the [...]
--- OUTSIDE RECORDS SUMMARY | 2025-01-21 13:50 | XMS_ITS | Clinical Summary ---
Author Organization [facility] Address [address] [place] [address] Care Team Providers Care Repairer Kiln Car Name Role Phone Unavailable Primary Care Provider [...] of 2) 2002 COVID-19 Vaccine ( - 2024-2 6 season) 2024 Influenza Adult (#1) 2024 RSV [...]
--- OUTSIDE RECORDS SUMMARY | 2025-01-21 13:51 | XMS_ITS | Clinical Summary ---
Author Organization [facility] [employer] [facility] Address [address] [facility] [place] [address] Care Team Providers Care Quality Improvement Engineer Name Role Phone Michael Hussein MD Primary Care Provider [phone] Source Comments [facility],non-owned Affiliates and Associated Physician Practices is amultiple site organization consisting of ambulatory clinics and hospital sitesin [place], [place], [place] and [place]. This disclosure is being madepursuant to the Care Everywhere program and may not contain all information available regarding this patient. 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) 11/20/2024 Orders Only [facility] - Rheumatology [address] [place] [address], [address] [place] [address] Tuan Poon DO from Last 3 Months Immunizations Immunization Administration Dates Next Due Giftology primary monoval ent 12+ yr 0.3mL Purple [...] on file Legal Sex Male 1:56 PM LEGAL SUPPORT ANALYST Gender Identity Not on file Sexual [...] Description 10/30/2025 10:00 AM CDT Office Visit [facility] - Rheumatology [address], [address] [place] [address] Tuan Poon DO [address] [place] [address] Health Maintenance Due Date Last [...] this topic Medical Devices Implanted Type Area Training And Development Coordinator Device Identifier Shelf Expiration Date Model / Serial / Lot Graft Bone Alfs + Dbm 5ml Ptty Implanted:Qty: 1 on 12/20/2017 by [place] Paula DO at [facility] N/A: Spine Lumbar Allosource 04/27/2019 [id number] / / [id number] [place] Set Screw Implanted:Qty: 4 on 12/20/2017 by Easton Paula DO at [facility] N/A: Spine Lumbar [employer]spi[employer]c [id number] / / 6.5x50mm Screw Implanted:Qty: 2 on 12/20/2017 by East[place] Paula DO at [facility] N/A: Spine Lumbar [employer] (MC[employer]) Medical Inspi[employer]c [id number] / / 6.5x55mm Screw Implanted:Qty: 1 on 12/20/2017 by Easton Paula DO at [facility] N/A: Spine Lumbar [employer] [id number] / / 6.5x60mm Screw Implanted:Qty: 1 on 12/20/2017 by Easton Paual DO at [facility] N/A: Spine Lumbar [employer] [id number] / / 35mm Flavio Implanted:Qty: 1 on 12/20/2017 by [place] Paula DO at [facility] N/A: Spine Lumbar [employer] [id number] / / 40mm Flavio Implanted:Qty: 1 on 12/20/2017 by [place] Paula DO at [facility] N/A: Spine Lumbar [employer] [id number] / / Procedures Procedure Name Priority Date/Time Associated Diagnosis Comments COMPREHENSIVE METABOLIC PANEL 11/05/2020 3:48 PM CDT HEPATITIS SCREEN ACUTE 0 3:20 PM LEGAL SUPPORT ANALYST ENDOSCOPY, COLON, SCREENING Routine 01/31/2012 1:26 PM LEGAL SUPPORT ANALYST from Last 3 Months or Most Recently Relevant to Health Maintenance Results * (ABNORMAL) COMPREHENSIVE METABOLIC PANEL (11/05/2020 3:48 PM CDT) [facility] Glucose 99 65 - 99 mg/dL [facility] Comment: Fasting reference interval BUN 32(H) 7 - 25 mg/dL [facility] Creatinine 1.36(H) 0.70 - 1.25 mg/dL [facility] Comment: For patients >49 years of age, the reference limit for Creatinine is approximately 13% higher for people identified as -Brazilian. eGFR by MDRD 53(L) > OR = [...] 46 U/L [facility] Comment: Test Performed at: [facility] [address] [place] [address] SHEILA PÉREZ DO,MPH 11/05/2020 3:48 PM CDT 11/05/2020 3:49 PM CDT Narendra Spencer MD LAB - CHEMISTRY ORDERABLES Final Result Performing Organization Address City/State/[facility] Co de Phone Number [facility] [address] [place] [address] * HEPATITIS SCREEN ACUTE (02/06/2020 3:20 PM LEGAL SUPPORT ANALYST) Hepatitis A Virus Antibody IgM NON-REACT LINDA NON-REACT LINDA [facility] Comment: For additional information, please refer to http://Plynked.AlterGeo/faq/CKI420 (This link is being provided for informational/ [...] a test for HCV RNA (test code 96077) is suggested. For additional information please refer to http://Plynked.AlterGeo/faq/HVY43b1 (This link is being provided for informational/ educational purposes only.) Test Performed at: [facility] [address] [address] SHEILA PÉREZ DO,MPH 02/06/2020 3:20 PM LEGAL SUPPORT ANALYST 02/06/2020 3:21 PM LEGAL SUPPORT ANALYST us Narendra Spencer MD LAB - CHEMISTRY ORDERABLES Final Result Performing Organization Address [facility] Co de Phone Number [facility] [address] [place] [address] * ENDOSCOPY, COLON, SCREENING (01/31/2012 1:26 PM LEGAL SUPPORT ANALYST) Narrative Transcriptions Amaury Noyola MD - 01/31/2012 1:26 PM CST us Amaury Noyola MD GI PROCEDURE ORDERABLES Final Re sult Performing Organization Address City/[facility] Co de Phone Number [facility] ENDOSCOPY from Last 3 Months or Most Recently Relevant to Health Maintenance Insurance MEDICARE MEDICARE [facility] MEDICARE [facility] MEDICARE AARP BC/BLUE BLUE CROSS BLUE [facility] Advance Directives Documents on File Type Date Recorded Patient Manager Subway Expl anation Adv Directive/Living Will/POA 12/20/2017 Adv Directive/Living Will/POA 09/06/2013 10:31 PM * Full Code (Latest Code Status on File) Date Activated Date Inactivated Comments 12/20/2017 5:02 PM 12/22/2017 1:45 PM * Full Code Date Activated Date Inactivated Comments 09/04/2013 2:46 PM 09/05/2013 6:37 PM Care Teams Quality Improvement Engineer Relationship Specialty Start Date End Date Michael Hussein MD [address] [place] [address] PCP - General Internal Medicine 06/04/21
--- OUTSIDE RECORDS SUMMARY | 2025-01-21 13:51 | XMS_ITS | Clinical Summary ---
Author Organization [facility] danielle [facility] Address [address] [place] [address] Care Team Providers Care Administrative Technician Name Role Phone Stephan Tomas Primary Care Provider [phone] Allergies Active Allergy Reactions Criticality Noted Date [...] (See Comments) Low 07/17/2020 Bruising w/skin bleeding Qcgklgfy-Akxtxfyrj-Vmfgg selina Other (See Comments) Low 06/01/2023 Skin [...] External Device Data STL ABSTRACTION Provider, Abstract from Last 3 Months Family History Medical [...] 2027 Insurance MEDICARE PART A AND B [facility] [id number] MEDICARE PART A AND B [facility] [id number] Care Teams Administrative Technician Relationship Specialty Start Date End Date Stephan Tomas DO [address] [place] [address] PCP - General Family Practice 09/25/18
== END 2025-01-21 12:30 | disposition home or self-care (01) ==
LOC: CHSIMG 12:32
PROVIDERS: PCP Internal Medicine; Visit Provider Nurse Practitioner Family
DX: M81.0 Age-related osteoporosis without current pathological fracture (principal); M85.89 Other specified disorders of bone density and structure, multiple sites
CPT/HCPCS: 77080

== ENCOUNTER 2025-01-24 10:00 | Outpatient (CLI) | payer MEDICARE, SELFPAY ==
--- OUTSIDE RECORDS SUMMARY | 2024-03-10 16:30 | XMS_ITS ---
Author Organization [facility] Address [address] [phone] Care Team Providers Care Automotive Parts Counter Assistant Name Role Phone Ronald Cristobal Unavailable [phone] Migration, Provider Unavailable Unavailable Allergies Allergen (clinical drug ingredient) Drug/Non Drug Allergy documented on EMR Reaction Allergy Type Onset Date Status HYDROCODONE CP (uncoded) Unknown Allergy Active amoxicillin / clavulanate Augmentin Unknown Drug Allergy Active clindamycin Clindamycin Unknown Drug Allergy Act maritza REASON FOR VISIT [facility] To [facility] Conversion Encounter Medications Medication SIG (Take, [...] review and pick correct strength-formula tion from Trackway options. If intended option is not shown, [...] Location Date Provider Diagnosis [facility] [place] [address] [address] [phone] 03/10/2024 Provider Migration ACUTE OTITIS EXTERNA NEC [...] Notes * Brian GODINEZDOB:1950 (74 yo M)Acc No.[id number]:03/10/2024 Patient: Brian Salazar Provider: Veronica claire Migration :1950 A ge:74 Y S ex:Male Date:03/10/2024 [facility] Subjective: * Chief [facility]s: [facility] * Medications: T akingAmoxicillin 500 MG Capsule 1 cap(s) orally 3 times a day oxyCODONE HCl 7.5 MG TABLET 1 TAB(S) ORALLY EVERY 6 HOURS , Notes to Pharmacist: *Please review and pick correct strength-formulation from Sensopiaspan options. If intended option is not shown, [...] *Please review and pick correct strength-formulation from Sensopiaspan options. If intended option is not shown, [...] Electronic signature of Prov ider Migration on 01/24/2025 at 11:01 AM CDT Sign off status: Pending * Provider: Veronica claire Migration Date: 05/11/2023 Generated for Margie hess/Radha/Brad on: 11:01 AM CDT
--- NOTE | ~2025-01-24 | XR_ITS ---
EXAMINATION: XR sacroiliac jt inj w imag BI DATE: 01/24/2025 11:43 INDICATION: Low back and sacroiliac joint pain TECHNIQUE: A time-out was performed to verify the patient's name, date of , and procedure to be performed. The procedure including the risks, benefits, and alternatives was discussed with the patient. Risks discussed included bleeding and infection. The patient understood the risks and agreed to proceed. Attention was first turned to the left sacroiliac joint. The skin overlying the left sacroiliac joint was prepped and draped in usual sterile fashion. Anesthetic was administered with 1% lidocaine subcutaneously. A 22 G needle was advanced under fluoroscopic guidance into the joint. Injection of 1 mL of Omnipaque 240 confirmed intra-articular position of the needle. Subsequently, injectate consisting of 5 mm of a 3:1:1 mixture of 1% lidocaine: 40 mg/mL Kenalog and 4 mg/mL dexamethasone for a total dosage of 40 mg Kenalog and 4 mg dexamethasone was instilled. The needle was removed and the entry site was cleaned and dressed. Attention was then turned to the right sacroiliac joint. The skin overlying the right sacroiliac joint was prepped and draped in usual sterile fashion. Anesthetic was administered with 1% lidocaine subcutaneously. A 22 G needle was advanced under fluoroscopic guidance into the joint. Injection of 1 mL of Omnipaque 240 confirmed intra-articular position of the needle. Subsequently, injectate consisting of 5 mm of a 3:1:1 mixture of 1% lidocaine: 40 mg/mL Kenalog and 4 mg/mL dexamethasone for a total dosage of 40 mg Kenalog and 4 mg dexamethasone was instilled. The needle was removed and the entry site was cleaned and dressed. There were no immediate complications. Fluoroscopy exposure time was 0.9 minutes. The total number of images was 7. Total DAP was 4.258 mGycm^2. FINDINGS: Real-time fluoroscopy demonstrates the needle and contrast first digit left sacroiliac joint and subsequently the right sacroiliac joint. Patient's pain prior to procedure:10/10. Patient's pain following the procedure: 0/10. IMPRESSION: 1. Successful bilateral sacroiliac joint injections of local anesthetic and steroid with decrease in the patient's presenting pain. Reviewed, dictated and finalized at location A. IMPRESSION: 1. Successful bilateral sacroiliac joint injections of local anesthetic and niru roid with decrease in the patient's presenting pain.
--- OUTSIDE RECORDS SUMMARY | 2025-01-24 11:01 | XMS_ITS | Patient Health Record ---
Author Organization [facility] Address [address] [facility] [address] [place], [place] [address] Care Team Providers Care Pediatric Lpn Name Role Phone Ronald Cristobal Unavailable [phone] Migration, Provider Unavailable Unavailable Allergies Allergen (clinical [...] Status Risk Notes Problem Acute otitis externa (54390783) ACUTE OTITIS EXTERNA NEC (380.22) Active confirmed lt Problem Chronic infection of sinus (99641325) Chronic infection of sinus NOS (473.9) Active confirmed Problem Pain of ear (finding) (236746355) Otalgia NOS (388.70) Active confirmed lt Encounters Encounter Location Date Provider Diagnosis [facility] [address] [facility], [place] [address] 03/10/2024 Provider Migration ACUTE OTITIS EXTERNA NEC [...] Date [facility] [address] [place] [address] [id number] Brian Abarca Self - patient is the [...]
--- OUTSIDE RECORDS SUMMARY | 2025-01-24 11:01 | XMS_ITS | Clinical Summary ---
Author Organization [facility] Address [address] [place] [address] Care Team Providers Care Refrigeration Mechanic Helper Name Role Phone Unavailable Primary Care Provider [...]
--- OUTSIDE RECORDS SUMMARY | 2025-01-24 11:01 | XMS_ITS | Clinical Summary ---
Author Organization [facility] danielle [facility] Address [address] [address] Care Team Providers Care Monument Mason Name Role Phone Stephan Tomas Primary Care Provider [phone] Allergies Active Allergy Reactions Criticality Noted Date [...] (See Comments) Low 07/17/2020 Bruising w/skin bleeding Kuqxfdgb-Ljkqynvxh-Rbiav selina Other (See Comments) Low 06/01/2023 Skin [...] 2027 Insurance MEDICARE PART A AND B [facility] [id number] MEDICARE PART A AND B [facility] [id number] Care Teams Monument Mason Relationship Specialty Start Date End Date Stephan Tomas DO [address] [place] [address] PCP - General Family Practice 09/25/18
--- OUTSIDE RECORDS SUMMARY | 2025-01-24 11:02 | XMS_ITS | Clinical Summary ---
Author Organization [facility] Address [address] [place] [address] Care Team Providers Care Water Technician Name Role Phone Michael Hussein MD Primary Care Provider [phone] Source Comments [facility],non-owned Affiliates and Associated Physician Practices is amultiple site organization consisting of ambulatory clinics and hospital sitesin [place], [place], [place] and [place]. This disclosure is being madepursuant to the Care Everywhere program and may not contain all information available regarding this patient. 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 (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) 11/20/2024 Orders Only [facility] - Rheumatology [address] [place] [address], [address] [place] [address] Tuan Poon DO from Last 3 Months Immunizations Immunization Administration Dates Next Due VoluBill primary monoval ent 12+ yr 0.3mL Purple [...] on file Legal Sex Male 1:56 PM MARKET GARDENER Gender Identity Not on file Sexual Orientation [...] Description 10/30/2025 10:00 AM CDT Office Visit [facility] - Rheumatology [address], [address] [place] [address] Tuan Poon DO [address] [place] [address] Health Maintenance Due Date Last [...] this topic Medical Devices Implanted Type Area Resume Specialist Device Identifier Shelf Expiration Date Model / Serial / Lot Graft Bone Alfs + Dbm 5ml Ptty Implanted:Qty: 1 on 12/20/2017 by Easton Paula DO at [facility] N/A: Spine Lumbar Allosource 04/27/2019 [id number] / / [id number] [place] Set Screw Implanted:Qty: 4 on 12/20/2017 by Easton Paula DO at [facility] N/A: Spine Lumbar [employer] [id number] / / 6.5x50mm Screw Implanted:Qty: 2 on 12/20/2017 by Easton Paula DO at [facility] N/A: Spine Lumbar [employer] [id number] / / 6.5x55mm Screw Implanted:Qty: 1 on 12/20/2017 by Easton Paula DO at [facility] N/A: Spine Lumbar [employer] [id number] / / 6.5x60mm Screw Implanted:Qty: 1 on 12/20/2017 by Easton Paula DO at [facility] N/A: Spine Lumbar [employer] [id number] / / 35mm Flavio Implanted:Qty: 1 on 12/20/2017 by Easton Paula DO at [facility] N/A: Spine Lumbar [employer] [id number] / / 40mm Flavio Implanted:Qty: 1 on 12/20/2017 by Easton Paula DO at [facility] N/A: Spine Lumbar [employer] [id number] / / Procedures Procedure Name Priority Date/Time Associated Diagnosis Comments COMPREHENSIVE METABOLIC PANEL 11/05/2020 3:48 PM CDT HEPATITIS SCREEN ACUTE 0 3:20 PM MARKET GARDENER ENDOSCOPY, COLON, SCREENING Routine 01/31/2012 1:26 PM MARKET GARDENER from Last 3 Months or Most Recently Relevant to Health Maintenance Results * (ABNORMAL) COMPREHENSIVE METABOLIC PANEL (11/05/2020 3:48 PM CDT) [facility] Glucose 99 65 - 99 mg/dL [facility] Comment: Fasting reference interval BUN 32(H) 7 - 25 mg/dL [facility] Creatinine 1.36(H) 0.70 - 1.25 mg/dL [facility] Comment: For patients >49 years of age, the reference limit for Creatinine is approximately 13% higher for people identified as -Slovak. eGFR by MDRD 53(L) > OR = [...] 46 U/L [facility] Comment: Test Performed at: [facility] [address] [place] [address] SHEILA PÉREZ DO,MPH 11/05/2020 3:48 PM CDT 11/05/2020 3:49 PM CDT Narendra Spencer MD LAB - CHEMISTRY ORDERABLES Final Result Performing Organization Address City/State/[facility] Co de Phone Number [facility] [address] [place] [address] * HEPATITIS SCREEN ACUTE (02/06/2020 3:20 PM MARKET GARDENER) Hepatitis A Virus Antibody IgM NON-REACT LINDA NON-REACT LINDA [facility] Comment: For additional information, please refer to http://Fishbowl.AwesomePiece/faq/KHC828 (This link is being provided for informational/ [...] a test for HCV RNA (test code 25668) is suggested. For additional information please refer to http://Fishbowl.AwesomePiece/faq/BSL73h4 (This link is being provided for informational/ educational purposes only.) Test Performed at: [facility] [place] [address] [address] [place] [address] SHEILA PÉREZ DO,MPH 02/06/2020 3:20 PM MARKET GARDENER 02/06/2020 3:21 PM MARKET GARDENER us Narendra Spencer MD LAB - CHEMISTRY ORDERABLES Final Result Performing Organization Address [facility] Co de Phone Number [facility] [address] [place] [address] * ENDOSCOPY, COLON, SCREENING (01/31/2012 1:26 PM MARKET GARDENER) Narrative Transcriptions Amaury Noyola MD - 01/31/2012 1:26 PM CST us Amaury Noyola MD GI PROCEDURE ORDERABLES Final Re sult Performing Organization Address City/[facility] Co de Phone Number [facility] ENDOSCOPY from Last 3 Months or Most Recently Relevant to Health Maintenance Insurance MEDICARE MEDICARE [facility] MEDICARE [facility] MEDICARE AARP BC/BLUE BLUE CROSS BLUE [facility] Advance Directives Documents on File Type Date Recorded Patient E Commerce Specialist Expl anation Adv Directive/Living Will/POA 12/20/2017 Adv Directive/Living Will/POA 09/06/2013 10:31 PM * Full Code (Latest Code Status on File) Date Activated Date Inactivated Comments 12/20/2017 5:02 PM 12/22/2017 1:45 PM * Full Code Date Activated Date Inactivated Comments 09/04/2013 2:46 PM 09/05/2013 6:37 PM Care Teams Water Technician Relationship Specialty Start Date End Date Michael Hussein MD [address] [place] [address] PCP - General Internal Medicine 06/04/21
== END 2025-01-24 10:01 | disposition home or self-care (01) ==
PROVIDERS: PCP Internal Medicine; Visit Provider Internal Medicine
DX: M53.3 Sacrococcygeal disorders, not elsewhere classified (principal)
CPT/HCPCS: 27096; G0260; J1100; J2003; J3301; Q9966

== ENCOUNTER 2025-02-01 08:13 | Outpatient (CLI) | payer MEDICARE, SELFPAY ==
[2025-02-01 08:31] LABS: Add Urine Microscopic? NO; Appearance Urine Clear (Clear); Glucose Urine UA Negative (Negative); Hematocrit 48.7 % (37.0-46.0); Hemoglobin 15.9 g/dL (12.4-15.3); Leukocyte Esterase Ur Negative LEU/UL (Negative); Mean Corpuscular HGB Conc 32.6 g/dL (32-36); Mean Corpuscular Hemoglobin 31.4 pg (27.0-31.0); Mean Corpuscular Volume 96.1 fL (78.0-102.0); Nitrate Urine Negative (Negative); Platelet Count Result 247 K/mm3 (150-420); Red Blood Count 5.07 M/mm3 (4.70-6.10); Specific Grav Ur 1.020 (1.010-1.020); White Blood Count 8.5 K/mm3 (4.8-10.8)
[2025-02-01 08:57] LABS: Alanine Aminotransferase 20 U/L (6-50); Albumin Level 4.8 g/dL (3.5-5.1); Alkaline Phosphatase 77 U/L (38-126); Anion Gap 8 mmol/L (4-12); Aspartate Amino Transferase 18 U/L (17-59); Bilirubin,Total 1.7 mg/dL (0.2-1.3); Blood Urea Nitrogen 35 mg/dL (9-20); Calcium 9.6 mg/dL (8.4-10.2); Carbon Dioxide 30 mmol/L (22-30); Chloride 105 mmol/L (98-107); Cholesterol 183 mg/dL (0-200); Creatine Kinase 28 U/L (55-170); Estimated Glomerular Filt Rate 42; Glucose 101 mg/dL (65-110); HDL Direct 74 mg/dL; Iron 102 ug/dL (49-181); Osmolality Calculated 304 mOsm/kg (285-295); Potassium 4.5 mmol/L (3.4-5.0); Sodium 143 mmol/L (137-145); Total Protein 7.0 g/dL (6.3-8.2); Triglycerides 108 mg/dL (<150)
[2025-02-01 09:12] LABS: Hemoglobin A1C 5.5 % (<5.7)
[2025-02-01 09:32] LABS: Ferritin 66.10 ng/mL (11.1-264)
[2025-02-01 09:47] LABS: Vitamin B12 932.0 pg/mL (239-931)
[2025-02-03 14:08] LABS: Folate, Hemolysate 377.0 ng/mL (Not Estab.); Folate, RBC 757 ng/mL (>498); Hematocrit 49.8 % (37.5-51.0)
== END 2025-02-01 08:14 | disposition home or self-care (01) ==
LOC: CHSLAB 08:16
PROVIDERS: PCP Internal Medicine; Visit Provider Internal Medicine
DX: E53.8 Deficiency of other specified B group vitamins (principal); E78.2 Mixed hyperlipidemia; R73.01 Impaired fasting glucose; N18.31 Chronic kidney disease, stage 3a; M05.59 Rheumatoid polyneuropathy with rheumatoid arthritis of multiple sites; I12.9 Hypertensive chronic kidney disease with stage 1 through stage 4 chronic kidney disease, or unspecified chronic kidney disease
CPT/HCPCS: 36415; 80053; 80061; 81003; 82550; 82607; 82728; 82747; 83036; 83540; 85027

== ENCOUNTER 2025-02-05 10:02 | Outpatient (CLI) | payer MEDICARE, SELFPAY ==
--- OUTSIDE RECORDS SUMMARY | 2014-02-19 07:34 | XMS_ITS | Continuity of Care Document ---
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 Role Phone Luis Fernando Soliman MD Unavailable Unavailable Allergies, Adverse Reactions, Alerts Substance Reaction Status Criticality hydrochlorothiazide Active No Infor mation pravastatin Active No Information lisinopril Active No Information clavulanic acid Active No Informati on Medications Medication Instructions Dosage Effective Dates (start - stop) Status Comments losartan 100 mg tablet take 1 tablet by oral route every day 100 MG - Active Adderall 20 mg tablet take 1 tablet by oral route every day before breakfast 20 MG - Active alprazolam 0.5 mg tablet take 1 or 2 hannah es tablet by oral route every day - Active UDM Sulfamethoxaici TMP DS tabs - Active chlorhexidine (bulk) liquid Gargle & spit bid - Active Nexium 40 mg capsule,delayed release take 1 capsule by oral route every day 40 MG - Active fluticasone 50 mcg/actuation nasal spray,suspension inhale 2 spray by intranasal route 2 times every day in each nostril 100 MCG - Active Symbicort 160 mcg-4.5 mcg/actuation HFA aerosol inhaler inhale 2 puff by inhalation route 2 times every day in the morning and evening 2.00 puff - Active ProAir HFA 90 mcg/actuation aerosol inhaler inhale 2 puff by inhalation route every 4 - 6 hours as needed - Active Viagra 100 mg tablet take 1 tablet by oral route every day as needed approximately 1 hour before sexual activity 100 MG - Active escitalopram 20 mg tablet take 1 tablet by oral route every day 20 MG - Active hydrochlorothiazide 25 mg tablet take 1 tablet by oral route every day 25 MG - Active pravastatin 40 mg tablet take 1 tablet b y oral route every day 40 MG - Active Zyrtec 10 mg capsule takes 2 in am and 2 in PM PRN - Active clobetasol-emollient 0.05 % topical cream apply by topical route 2 times every day a thin layer to the affected area(s) 0.00 - Active Procedures Procedure Date OFFICE/OUTPT EM EST DETAILED/MODERATE 25 MINS OFFICE/OUTPT EM EST DETAILED/MODERATE 25 MINS Med Records-Per Unit OFFICE/OUTPT EM EST DETAILED/MODERATE 25 MINS OFFICE/OUTPT CONSULT EM COMPREH/MODERATE 60 MINS ELECTROCARDIOGRAM COMPLETE W/ PHYS INTER P & REPORT ECHO TRANSTHORACIC R-T 2D COMP W/DOP&COL OR FLOW -Professional Component Advance Directives Directive Yes / No Effective Date File Name No Information Encounters Encounter Description Practice Location Reason(s) For Visit Diagnoses Date Provider Providers Copied on Encounter [id number] - [facility], [address] [facility] [address], [place], [address], [place] tel: [phone] [facility] Cardiology No Information 4 Janny Luis Fernando. [address] [facility], [place], [address]. tel: [phone] Referring Provider: Stephan Tomas, [address] [facility] [address], [place], [address] . tel:[phone] OFFICE/OUTPT EM EST DETAILED/MOD ERATE 25 MINS [id number] - [facility], [address] [facility] [address], [place], [address], [place] tel: [phone] [facility] Cardiology Lower Ext. EdemaHypertension, BenignHypercholeste rolemiaUnspecified general medical examination 4 Ronen Childs. [address] [place], [id number] . [phone] Referring Provider: Stephan Tomas, [address], [place], [address] . tel:[phone] OFFICE/OUTPT EM EST DETAILED/MOD ERATE 25 MINS [id number] - [facility], [address] [facility] [address], [place], [address], [place] tel:[phone] [facility] Cardiology Hypertension, BenignHypercholeste rolemiaUnspecified general medical examinationLower Ext. Edema 4 Ronen Childs. [address] , [place], [id number] . [phone] Referring Provider: Stephan Tomas, [address] [facility] [address], [place], [address] . tel:[phone] [id number] - [facility], [address] [facility] [address], [place], [address], tel:[phone] [facility] Cardiology No Information 4 Ronen Childs. [address] [place], [id number] . [phone] Referring Provider: Amadeo Cardenas, [address] [place], [address] . tel:[phone] OFFICE/OUTPT EM EST DETAILED/MOD ERATE 25 MINS [id number] - [facility], [address] [facility] [address], [place], [address], [place] tel:[phone] [facility] Cardiology Hypertension, BenignShortness of Breath 4 Ronen Childs. [address] [place], [id number] . [phone] Referring Provider: Stephan Tomas, [address], [place], [address] . tel:[phone] OFFICE/OUTPT CONSULT EM COMPREH/MODE RATE 60 MINS [id number] - [facility], [address] [facility] [address], [place], [address], [place] tel: [phone] [facility] Cardiology Hypertension, BenignShortness of BreathMurmur 3 Ronen Childs. [address] [place], [id number] . tel: [phone] Referring Provider: Stephan Tomas, [address], [place], [address] . tel:[phone] [id number] - [facility], [address] [facility] [address], [place], [address], tel: [phone] [facility] Cardiology No Information 3 Ronen Childs. [address] [place], [id number] . tel: [phone] Family History Family Member Type Diagnosis Age At Onset Maternal grandmother Problem (finding) stroke Family H/O Problem (finding) hypertension Sister Problem (finding) asthma family h/o Problem (finding) HTN Problem (finding) Paternal uncle Problem (finding) Maternal histo ry of diabetes mellitus Mother Problem (finding) Tongue cancer Payers Payer name Insurance type Covered libertarian ID Authorluis infante(s) [employer] [facility] [id number] Social History Type Description Quantity Date Captured Comments Alcohol Use Details Unknown Caffeine Use Details Unknown Tobacco Use Status No Information Smoking Status No Information Sex Male Chief Complaint And Reason For Visit No Information Reason For Referral Reason For Referral No Information History Of Present Illness Encounter Date Complaint History Of Prese nt Illness No Information Functional Status Date Functional Assessmen t No Information Instructions Date Instruction Additional Infor mation No Information Assessments Type Assessment Date No Information Patient Care Teams Name Effective Dates (start - stop) Status Members No Information
--- OUTSIDE RECORDS SUMMARY | 2019-01-16 03:00 | XMS_ITS | Continuity of Care Document ---
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 Name Role Phone O Gume CORMIER, Cristobal Unavailable Unavai lable Allergies, Adverse Reactions, Alerts Substance Reaction Status Criticality No Known Allergies Active No Inform ation Medications Medication Instructions Dosage Effective Dates (start - stop) Status Comments alprazolam 0.5 mg tablet - Activ e losartan 100 mg tablet - Active sertraline 100 mg tablet - Activ e Vitamin D3 400 unit tablet - Active oxycodone-acetaminophen 10 mg-325 mg tablet - Active diclofenac 1 % topical gel - Active Adderall XR 20 mg capsule,extended release - Active turmeric 400 mg capsule - Active Procedures Procedure Date OFFICE/OUTPATIENT VISIT NEW Advance Directives Directive Yes / No Effective Date File Name No Information Encounters Encounter Description Practice Location Reason(s) For Visit Diagnoses Date Provider Providers Copied on Encounter OFFICE/OUTPAT IENT VISIT NEW [facility] , [address], [place], [address], [place] tel:[phone] [facility] Low back painHistory of lumbar fusionBody mass index (BMI) 37.0-37.9, adultElevated blood-pressure reading, w/o diagnosis of htn 2-201 [address] [place] [place]. [address], [place], [place], [id number] . tel:[phone] Family History Family Member Type Diagnosis Age At Onset Mother Problem (finding) hypertension Mother Problem (finding) Cardiovascular disease Mother Problem (finding) seizure disorder Mother Problem (finding) Diabetes mellitus Father Problem (finding) Mental illness Mother Problem (finding) Cancer, unknown Payers Payer name Insurance type Covered democrat ID Authoriza tion(s) Medicare E2 OT [id number] Social History Type Description Quantity Date Captured Comments Alcohol Use Details No Caffeine Use Details Unknown Tobacco Use Status Current non-smoker 19 Smoking Status Never smoker Non-Smoking Tobacco Use Details : No Details Available : No Details Available Sex Male Vital Signs Date / Time: Height Weight BMI Pulse Rate Blood Pressure Temperature Respiratory Rate Body Surface Area Head Circumference Head Circ. Percentile Wt./Emre. Percentile BMI percentile Pulse Ox Inhaled Ox 9:52 AM 71.00 in 120.656 kg (266.00 lbs) 37.1 0 kg/m eter (2) 80 /min 120/80 mm[Hg] Chief Complaint And Reason For Visit No Information Reason For Referral Reason For Referral No Information Plan Of Treatment Date Type Action Status Goal Lifestyle education regardin g diet completed Referral Ordered: RADEX SPI LUMBOSAC 2/3 VIEWS ordered Referral Ordered: CT LMBR SPI C-MATRL spine, lumbar Appointment date/timeframe: 01/25/2019 ordered History Of Present Illness Encounter Date Complaint History Of Prese nt Illness No Information Functional Status Date Functional Assessmen t Pain Score 8/10 Instructions Date Instruction Additional Infor mation Lifestyle education regarding di et Related to Body mass index (BMI) 37.0-37.9, adult Giving encouragement to exercise Related to Elevated blood-pressure reading, without diagnosis of hypertension Assessments Type Assessment Date assessment Low back pain assessment History of lumbar fusion 2018 assessment Body mass index (BMI) 37.0-37.9, adult assessment Elevated blood-press ure reading, without diagnosis of hypertension Patient Care Teams Name Effective Dates (start - stop) Status Members No Information
--- OUTSIDE RECORDS SUMMARY | 2024-03-10 15:30 | XMS_ITS ---
Author Organization [facility] Address [address] [phone] Care Team Providers Care Weight Caller Name Role Phone Ronald Cristobal Unavailable [phone] Migration, Provider Unavailable Unavailable Allergies Allergen (clinical drug ingredient) Drug/Non Drug Allergy documented on EMR Reaction Allergy Type Onset Date Status HYDROCODONE CP (uncoded) Unknown Allergy Active amoxicillin / clavulanate Augmentin Unknown Drug Allergy Active clindamycin Clindamycin Unknown Drug Allergy Act maritza REASON FOR VISIT [facility] To [facility] Conversion Encounter Medications Medication SIG (Take, Route, Frequency, Duration) Notes Start Date End Date Status CLOBETASOL OINTMENT 0.05% SOLUTION 1 ALEXIS APPLIED TOPICALLY 2 TIMES A DAY; Duration: 30 DAY(S) *Please review for potential replacement for e-prescription and drug interaction check* Active PROAIR HFA CFC FREE 90 MCG/INH AEROSOL 2 PUFF(S) INHALED 4 TIMES A DAY; Duration: 30 DAY(S) *Please review for potential replacement for e-prescription and drug interaction check* Active Symbicort 160-4.5 MCG/ACT Aerosol 2 puff(s) inhaled 2 times a day; Duration: 30 day(s) Active Fluticasone Propionate 50 MCG/ACT Suspension 1 spray(s) intranasally once a day; Duration: 30 day(s) Active CIPRODEX 0.3%-0.1% SUSPENSION 4 GTT IN EACH AFFECTED EAR 2 TIMES A DAY; Duration: 7 DAY(S) *Please review for potential replacement for e-prescription and drug interaction check* 07/04/2013 Active hydroCHLOROthiazide 12.5 MG Capsule 1 cap(s) orally once a day; Duration: 30 day(s) Active ALPRAZolam ER 0.5 MG Tablet Extended Release 24 Hour 1 tab(s) orally once a day (in the morning); Duration: 10 day(s) Active Citalopram Hydrobromide 20 MG Tablet 1 tab(s) orally once a day; Duration: 30 day(s) Active Amphetamine-Dextroampheta mine 20 MG Tablet 1 tab(s) orally 2 times a day; Duration: 30 day(s) Active NexIUM 40 MG Capsule Delayed Release 1 cap(s) orally once a day; Duration: 30 day(s) Active oxyCODONE HCl 7.5 MG TABLET 1 TAB(S) ORALLY EVERY 6 HOURS *Please review and pick correct strength-formula tion from Portalarium options. If intended option is not shown, discontinue and re-order from Quick Search* Active Amoxicillin 500 MG Capsule 1 cap(s) orally 3 times a day; Duration: 10 day(s) Active predniSONE 20 MG Tablet 1 tab(s) orally once a day; Duration: 7 day(s) Active TYLENOL WITH CODEINE #3 5/325MG TABLET 1 TAB(S) ORALLY EVERY 6 HOURS *Please review for potential replacement for e-prescription and drug interaction check* Active Encounters Encounter Location Date Provider Diagnosis [facility] [place] [address] [address] [phone] 03/10/2024 Provider Migration ACUTE OTITIS EXTERNA NEC 380.22 Assessments Encounter Date Diagnosis (ICD Code) Assessment Notes Treatment Notes Treatment Clinical Notes Section Notes 03/10/2024 ACUTE OTITIS EXTERNA NEC (ICD9-CM - 380.22) lt Plan Of Treatment Medication Medication Name Sig Start Date Stop Date Notes CIPRODEX 0.3%-0.1% SUSPENSION 4 GTT IN EACH AFFECTED EAR 2 TIMES A DAY; Duration: 7 DAY(S) 07/04/2013 *Please review for potential replacement for e-prescription and drug interaction check* Progress Notes * Brian GODINEZDOB:1950 (74 yo M)Acc No.[id number]:03/10/2024 Patient: Brian Salazar Provider: Veronica claire Migration :1950 A ge:74 Y S ex:Male Date:03/10/2024 [facility] Subjective: * Chief Complaints: * [facility] * Medications: T akingAmoxicillin 500 MG Capsule 1 cap(s) orally 3 times a day oxyCODONE HCl 7.5 MG TABLET 1 TAB(S) ORALLY EVERY 6 HOURS , Notes to Pharmacist: *Please review and pick correct strength-formulation from Flashstartsspan options. If intended option is not shown, discontinue and re-order from Quick Search*TYLENOL WITH CODEINE #3 5/325MG TABLET 1 TAB(S) ORALLY EVERY 6 HOURS , Notes to Pharmacist: *Please review for potential replacement for e-prescription and drug interaction check*predniSONE 20 MG Tablet 1 tab(s) orally once a day NexIUM 40 MG Capsule Delayed Release 1 cap(s) orally once a day Amphetamine-Dextroamphetamine 20 MG Tablet 1 tab(s) orally 2 times a day Citalopram Hydrobromide 20 MG Tablet 1 tab(s) orally once a day ALPRAZolam ER 0.5 MG Tablet Extended Release 24 Hour 1 tab(s) orally once a day (in the morning) hydroCHLOROthiazide 12.5 MG Capsule 1 cap(s) orally once a day Fluticasone Propionate 50 MCG/ACT Suspension 1 spray(s) intranasally once a day Symbicort 160-4.5 MCG/ACT Aerosol 2 puff(s) inhaled 2 times a day PROAIR HFA CFC FREE 90 MCG/INH AEROSOL 2 PUFF(S) INHALED 4 TIMES A DAY , Notes to Pharmacist: *Please review for potential replacement for e-prescription and drug interaction check*CLOBETASOL OINTMENT 0.05% SOLUTION 1 ALEXIS APPLIED TOPICALLY 2 TIMES A DAY , Notes to Pharmacist: *Please review for potential replacement for e-prescription and drug interaction check*Taking Amoxicillin 500 MG Capsule 1 cap(s) orally 3 times a day Taking oxyCODONE HCl 7.5 MG TABLET 1 TAB(S) ORALLY EVERY 6 HOURS , Notes to Pharmacist: *Please review and pick correct strength-formulation from Flashstartsspan options. If intended option is not shown, discontinue and re-order from Quick Search*Taking TYLENOL WITH CODEINE #3 5/325MG TABLET 1 TAB(S) ORALLY EVERY 6 HOURS , Notes to Pharmacist: *Please review for potential replacement for e-prescription and drug interaction check*Taking predniSONE 20 MG Tablet 1 tab(s) orally once a day Taking NexIUM 40 MG Capsule Delayed Release 1 cap(s) orally once a day Taking Amphetamine-Dextroamphetamine 20 MG Tablet 1 tab(s) orally 2 times a day Taking Citalopram Hydrobromide 20 MG Tablet 1 tab(s) orally once a day Taking ALPRAZolam ER 0.5 MG Tablet Extended Release 24 Hour 1 tab(s) orally once a day (in the morning) Taking hydroCHLOROthiazide 12.5 MG Capsule 1 cap(s) orally once a day Taking Fluticasone Propionate 50 MCG/ACT Suspension 1 spray(s) intranasally once a day Taking Symbicort 160-4.5 MCG/ACT Aerosol 2 puff(s) inhaled 2 times a day Taking PROAIR HFA CFC FREE 90 MCG/INH AEROSOL 2 PUFF(S) INHALED 4 TIMES A DAY , Notes to Pharmacist: *Please review for potential replacement for e-prescription and drug interaction check*Taking CLOBETASOL OINTMENT 0.05% SOLUTION 1 ALEXIS APPLIED TOPICALLY 2 TIMES A DAY , Notes to Pharmacist: *Please review for potential replacement for e-prescription and drug interaction check* * Allergies: C lindamycinAugmentinHYDROCODONE CP Assessment: * Assessment: 1. A CUTE OTITIS EXTERNA NEC - 380.22 N otes :lt Plan: * Treatment: * Electronic signature of Prov ider Migration on 02/05/2025 at 10:36 AM SENIOR DATA SCIENTIST Sign off status: Pending * Provider: Veronica claire Migration Date: 05/11/2023 Generated for Margie hess/Radha/Brad on: 04/07/2024 10:36 AM SENIOR DATA SCIENTIST
[2025-02-05 10:25] VITALS: BP 118/79; PULSE 77; RESP 18; TEMP 36.1; O2SAT 97; BMI 30.9
--- OUTSIDE RECORDS SUMMARY | 2025-02-05 10:36 | XMS_ITS | Clinical Summary ---
Author Organization [facility] Address [address] [place] [address] Care Team Providers Care Waxer Tender Name Role Phone Unavailable Primary Care Provider [...]
--- OUTSIDE RECORDS SUMMARY | 2025-02-05 10:37 | XMS_ITS | Clinical Summary ---
Author Organization [facility] Address [address] [place] [address] Care Team Providers Care Air Sealing Technician Name Role Phone Michael Hussein MD Primary Care Provider [phone] Source Comments [facility],non-owned Affiliates and Associated Physician Practices is amultiple site organization consisting of ambulatory clinics and hospital sitesin [place], [place], [place] and [place]. This disclosure is being madepursuant to the Care Everywhere program and may not contain all information available regarding this patient. 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) [...] [facility] sites with negative rheumatoid factor 05/26/2017 Overview [...] 12/02/2022 Assessment & Plan (06/04/2021 11:10 AM ENGINEERING TECHNICAL SPECIALIST): Reviewed potential inherent risks with the [...] Description 11/20/2024 9:20 AM CDT Office Visit [facility] - Rheumatology [address] [place] [address], [facility] [address] [place] [address] Tuan Poon DO Rheumatoid arthritis of multiple sites with negative rheumatoid factor (HCC) (Primary Dx); 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) 11/20/2024 Orders Only [facility] - Rheumatology [address] [place] [address], [address] [place] [address] Tuan Poon DO from Last 3 Months Immunizations Immunization Administration Dates Next Due Mimecast primary monoval ent 12+ yr 0.3mL Purple [...] on file Legal Sex Male 1:56 PM ENGINEERING TECHNICAL SPECIALIST Gender Identity Not on file Sexual [...] Description 10/30/2025 10:00 AM CDT Office Visit [facility] - Rheumatology [address], [address] [place] [address] Tuan Poon DO [address] [place] [address] Health Maintenance Due Date Last [...] this topic Medical Devices Implanted Type Area Concrete Block Maker Device Identifier Shelf Expiration Date Model / Serial / Lot Graft Bone Alfs + Dbm 5ml Ptty Implanted:Qty: 1 on 12/20/2017 by Easton Paula DO at [facility] N/A: Spine Lumbar Allosource 04/27/2019 [id number] / / [id number] [place] Set Screw Implanted:Qty: 4 on 12/20/2017 by Easton Paula DO at [facility] N/A: Spine Lumbar [employer] [id number] / / 6.5x50mm Screw Implanted:Qty: 2 on 12/20/2017 by Easton Paula DO at [facility] N/A: Spine Lumbar [employer] [id number] / / 6.5x55mm Screw Implanted:Qty: 1 on 12/20/2017 by Easton Paula DO at [facility] N/A: Spine Lumbar [employer] [id number] / / 6.5x60mm Screw Implanted:Qty: 1 on 12/20/2017 by Easton Paula DO at [facility] N/A: Spine Lumbar [employer] [id number] / / 35mm Flavio Implanted:Qty: 1 on 12/20/2017 by Easton Paula DO at [facility] N/A: Spine Lumbar [employer] [id number] / / 40mm Flavio Implanted:Qty: 1 on 12/20/2017 by Easton Paula DO at [facility] N/A: Spine Lumbar [employer] [id number] / / Procedures Procedure Name Priority Date/Time Associated Diagnosis Comments COMPREHENSIVE METABOLIC PANEL 11/05/2020 3:48 PM CDT HEPATITIS SCREEN ACUTE 0 3:20 PM ENGINEERING TECHNICAL SPECIALIST ENDOSCOPY, COLON, SCREENING Routine 01/31/2012 1:26 PM ENGINEERING TECHNICAL SPECIALIST from Last 3 Months or Most Recently Relevant to Health Maintenance Results * (ABNORMAL) COMPREHENSIVE METABOLIC PANEL (11/05/2020 3:48 PM CDT) [facility] Glucose 99 65 - 99 mg/dL [facility] Comment: Fasting reference interval BUN 32(H) 7 - 25 mg/dL [facility] Creatinine 1.36(H) 0.70 - 1.25 mg/dL [facility] Comment: For patients >49 years of age, the reference limit for Creatinine is approximately 13% higher for people identified as -German. eGFR by MDRD 53(L) > OR = [...] 46 U/L [facility] Comment: Test Performed at: [facility] [address] [place] [address] SHEILA PÉREZ DO,MPH 11/05/2020 3:48 PM CDT 11/05/2020 3:49 PM CDT Narendra Spencer MD LAB - CHEMISTRY ORDERABLES Final Result Performing Organization Address City/State/[facility] Co de Phone Number [email or web address] [address] [place] [address] * HEPATITIS SCREEN ACUTE (02/06/2020 3:20 PM ENGINEERING TECHNICAL SPECIALIST) Hepatitis A Virus Antibody IgM NON-REACT LINDA NON-REACT LINDA [facility] Comment: For additional information, please refer to http://P[employer] Ltd.Level 3 Communications/faq/ZSM214 (This link is being provided for informational/ [...] a test for HCV RNA (test code 21365) is suggested. For additional information please refer to http://P[employer].Level 3 Communications/faq/SUN79z2 (This link is being provided for informational/ educational purposes only.) Test Performed at: [facility] [place] [address] [address] SHEILA PÉREZ DO,MPH 02/06/2020 3:20 PM ENGINEERING TECHNICAL SPECIALIST 02/06/2020 3:21 PM ENGINEERING TECHNICAL SPECIALIST us Narendra Spencer MD LAB - CHEMISTRY ORDERABLES Final Result Performing Organization Address [facility] Co de Phone Number [email or web address] [address] [place] [address] * ENDOSCOPY, COLON, SCREENING (01/31/2012 1:26 PM ENGINEERING TECHNICAL SPECIALIST) Narrative Transcriptions Aamury Noyola MD - 01/31/2012 1:26 PM CST us Amaury Noyola MD GI PROCEDURE ORDERABLES Final Re sult Performing Organization Address City/[facility] Co de Phone Number [facility] ENDOSCOPY from Last 3 Months or Most Recently Relevant to Health Maintenance Insurance MEDICARE MEDICARE [facility] MEDICARE 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
--- OUTSIDE RECORDS SUMMARY | 2025-02-05 10:37 | XMS_ITS | Clinical Summary ---
Author Organization [facility] Address [address] [place] [address] Care Team Providers Care Armature Winder Helper Repair Name Role Phone Stephan Tomas Primary Care Provider [phone] Allergies Active Allergy Reactions Criticality Noted Date [...] (See Comments) Low 07/17/2020 Bruising w/skin bleeding Epzymdkf-Zgkfkqjwv-Bscwy selina Other (See Comments) Low 06/01/2023 Skin [...] 2027 Insurance MEDICARE PART A AND B [facility] [id number] [address] [facility] [id number] Care Teams Armature Winder Helper Repair Relationship Specialty Start Date End Date Stephan Tomas DO [address] [place] [address] PCP - General Family Practice 09/25/18
--- OUTSIDE RECORDS SUMMARY | 2025-02-05 10:37 | XMS_ITS | Patient Health Record ---
Author Organization [facility] Address [address] [facility] [address] [place], [place] [address] Care Team Providers Care Junior Graphic Designer Name Role Phone Ronald Cristobal Unavailable [phone] Migration, Provider Unavailable Unavailable Allergies Allergen (clinical [...] Status Risk Notes Problem Acute otitis externa (99490167) ACUTE OTITIS EXTERNA NEC (380.22) Active confirmed lt Problem Chronic infection of sinus (07588492) Chronic infection of sinus NOS (473.9) Active confirmed Problem Pain of ear (finding) (843582433) Otalgia NOS (388.70) Active confirmed lt Encounters Encounter Location Date Provider Diagnosis [facility] [address] [facility], [place] [id number] 03/10/2024 Provider Migration ACUTE OTITIS EXTERNA NEC 380.22 Assessments Encounter Date Diagnosis (ICD Code) Assessment Notes Treatment Notes Treatment Clinical Notes Section Notes 03/10/2024 ACUTE OTITIS EXTERNA NEC (ICD9-CM - 380.22) lt Plan Of Treatment No Information Insurance Providers Payer Name Payer Address Payer Phone Subscriber Number Group Number Insured Name Patient Relationship to Insured Coverage Start Date Coverage End Date [facility] [address] [place] [address] [id number] Brian Abarca Self - patient is the [...]
[2025-02-05] MEDS: MALTOSE IVPB (10:50)
[2025-02-05] MEDS: ABATACEPT IVPB (10:50)
[2025-02-05] MEDS: SODIUM CHLORIDE 0.9% IVPB (10:50)
--- NOTE | 2025-02-05 11:35 | PC.NURSE ---
Patient tolerated infusion well. IV site discontined and dressing applied to site. Denies any questions, aware of next appt. Patient left floor ambulatory.
== END 2025-02-05 11:35 | disposition home or self-care (01) ==
PROVIDERS: PCP Internal Medicine; Visit Provider Internal Medicine Rheumatology
DX: M06.09 Rheumatoid arthritis without rheumatoid factor, multiple sites (principal)
CPT/HCPCS: 96365; J0129

== ENCOUNTER 2025-03-05 12:59 | Outpatient (CLI) | payer MEDICARE, SELFPAY ==
[2025-03-05 13:07] VITALS: BMI 30.9
[2025-03-05 14:00] VITALS: BP 123/80; PULSE 78; RESP 16; TEMP 36.4; O2SAT 98
[2025-03-05] MEDS: SODIUM CHLORIDE 0.9% IVPB (14:02)
[2025-03-05] MEDS: ABATACEPT IVPB (14:02)
[2025-03-05] MEDS: MALTOSE IVPB (14:02)
[2025-03-05 14:40] VITALS: BP 131/78; PULSE 78
--- NOTE | 2025-03-05 14:41 | PC.NURSE ---
Patient tolerated monthly Orencia infusion well. SEE MAR and patient care notes.
== END 2025-03-05 13:00 | disposition home or self-care (01) ==
PROVIDERS: PCP Internal Medicine; Visit Provider Internal Medicine Rheumatology
DX: M06.09 Rheumatoid arthritis without rheumatoid factor, multiple sites (principal)
CPT/HCPCS: 96365; J0129